=== PATIENT | male | born 1955 | race Caucasian/White ===

== ENCOUNTER → 2020-07-13 10:09 | Outpatient (BNVA) | payer MEDICAID, SELFPAY | PROVIDERS: PCP Internal Medicine; Referring Provider Internal Medicine; Visit Provider Internal Medicine Cardiovascular Disease | DX: I50.22 Chronic systolic (congestive) heart failure (principal); I42.9 Cardiomyopathy, unspecified; I48.20 Chronic atrial fibrillation, unspecified; R00.1 Bradycardia, unspecified; Z79.01 Long term (current) use of anticoagulants; Z79.899 Other long term (current) drug therapy | CPT/HCPCS: 93005; 99212 ==

== ENCOUNTER 2020-07-26 13:50 | Emergency (ER) | payer MEDICAID, SELFPAY ==
[2020-07-26 14:09] VITALS: BP 117/66; BP 130/90; PULSE 66; PULSE 80; RESP 18; TEMP 36.7; O2SAT 96; BMI 39.0
[2020-07-26 15:41] VITALS: BP 122/68; PULSE 66; RESP 18; TEMP 36.9; O2SAT 100
--- NOTE | 2020-07-26 17:04 | ED_ITS ---
HPI - General Adult General Chief complaint: General Medical Stated complaint: Epigastic/back pain Time Seen by Provider: 07/26/20 17:04 History of Present Illness HPI narrative: 65-year-old male who presents to the emergency department for evaluation of multiple complaints. The patient is complaining of left-sided pain. He states that the pain is located in his head and goes all the way down to his left foot. He also states the pain goes to his back. He states that the pain has been constant for 2 days. He states that the pain is moderate to severe in intensity. Venti states that he had a subjective fever at home, he felt short of breath and had wheezing. He is feeling lightheaded and dizzy. He states he has had occasional cough. The patient states that he has had some painful urination but no frequency. The patient did have a stroke with left side paralysis and he is unable to walk. 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 He did not take any medications for the pain. Related Data Home Medications Medication Instructions Recorded Confirmed citalopram 20 mg tablet 40 mg PO DAILY tab 07/13/20 07/13/20 dabigatran etexilate 150 mg capsule 150 mg PO BID 07/13/20 07/13/20 furosemide 20 mg tablet 20 mg PO DAILY 07/13/20 07/13/20 levetiracetam 1,000 mg tablet 1,000 mg PO Q12H 07/13/20 07/13/20 lisinopril 20 mg tablet 20 mg PO DAILY 07/13/20 07/13/20 oxcarbazepine 300 mg tablet 300 mg PO BID 07/13/20 07/13/20 pantoprazole 40 mg tablet,delayed 40 mg PO DAILY 07/13/20 07/13/20 release simvastatin 20 mg tablet 20 mg PO DAILY 07/13/20 07/13/20 Allergies Allergy/AdvReac Type Severity Reaction Status Date / Time No Known Allergies Allergy Verified 07/13/20 10:21 Review of Systems Review of Systems: Yes all other systems are reviewed and are negative Constitutional: Constitutional: Reports as per HPI Eyes: Eyes: Reports as per HPI ENT: Reports as per HPI Cardiovascular: Cardiovascular: Reports as per HPI Respiratory: Respiratory: Reports as per HPI Gastrointestinal: Gastrointestinal: Reports as per HPI Genitourinary: Genitourinary: Reports as per HPI Musculoskeletal: Musculoskeletal: Reports as per HPI Integumentary/Breasts: Skin/Breast: Reports as per HPI Neurologic: Reports as per HPI and Reports Abnormal speech present Psychiatric: Psychiatric: Reports as per HPI Allergic/Immunologic: Allergic/Immunologic: Reports as per HPI [facility] Past Medical History Medical History Bradycardia Cardiomyopathy Chronic atrial fibrillation Chronic HFrEF (heart failure with reduced ejection fraction) CVA (cerebral vascular accident) HTN (hypertension) Obesity Family History Family History Father Emphysema lung Mother Cardiovascular disease Social History Social History Alcohol intake: former Smoking Status: Former smoker Use of substances other than those prescribed or required for medical reasons: No Advance Directives: No Advance Directives Information Provided: No Physical Exam Vital Signs: Vital Signs: Last Vital Signs Temp 98.2 F 07/26/20 20:31 Pulse 64 07/26/20 20:31 Resp 20 07/26/20 20:31 BP 118/74 07/26/20 20:31 Pulse Ox 94 07/26/20 20:31 Body Mass Index 39.0 Const: General: cooperative, no acute distress, alert and awake Orientation/consciousness: oriented to person and oriented to place Limitations: no limitations HENMT: Head: Yes normal to inspection, Yes normocephalic and Yes atraumatic Ears: external ears normal General nose exam: Normal external nose present Face and sinus: Yes normal facial exam Mouth: Normal oral and palatal mucosa present Eyes: General: appearance normal, both eyes and all related structures Periorbital: periorbital findings normal Eyelids: Yes eyelids normal Conjunctivae: conjunctivae normal Sclerae: sclerae normal Corneas: corneas normal Pupils: Equal, round and reactive pupils present Direct Ophthalmoscopy: normal light reflex Neck: Neck: Yes normal visual inspection and Yes supple Lymphatic: no lymphadenopathy noted Chest: Chest palpation & inspection: normal inspection of the chest and other (Tenderness to palpation of the anterior chest) Resp: Effort & Inspection: normal respiratory effort, abnormal respiratory pattern, no audible wheezes and no respiratory distress Auscultation: clear to auscultation bilaterally, no crackles, no rales, no rhonchi and no wheezes Cardio: Rate: regular rate Rhythm: regular rhythm Heart sounds: S1 normal heart sound present, S2 normal heart sound present and Murmur heart sound present GI: Inspection: No distended Palpation (GI): Soft to palpation, nontender, no guarding and No hepatosplenomegaly present Auscultation: normal bowel sounds : General: Yes no CVA tenderness Back/Spine/Pelvis: Back: no CVA tenderness Skin: General skin exam: no rashes or lesions noted Lesions: no lesions Rashes: no rashes Wounds: no wounds Neuro: General: oriented to person and oriented to place Cranial nerves: Yes CN's II-XII intact bilaterally and Yes Equal, round and reactive pupils present Cognition (Neuro): normal cognition Speech: Abnormal speech present Motor exam (neuro): Other motor observations present (Left upper and lower extremity paralysis) Extrem: General: Yes no pedal edema, Yes no calf tenderness and Yes other (Contracture of the left upper extremity secondary to paralysis) Psych: Appearance: grossly normal Mental Status: mental status grossly normal Speech and movement: Clear speech present Affect: normal affect Thought process: Normal thought process present Course Course Course Narrative: 65-year-old male with a history of stroke with left-sided paralysis, CHF, cardiomegaly, atrial fibrillation who presents to emergency department for evaluation of left-sided pain, fever, shortness of breath, dizziness and cough. The patient's physical examination was consistent with his left-sided paralysis due to his old stroke and anterior chest tenderness otherwise was unremarkable. Given his symptoms, I did do a septic workup on the patient. Medical Decision Making Lab Data Result diagrams: 07/26/20 17:49 07/26/20 17:49 Labs: Lab Results 07/26/20 07/26/20 07/26/20 Range/Units 17:49 17:49 17:49 WBC 7.5 (4.8-10.8) X10*3/uL RBC 4.34 L (4.60-5.80) X10*6/uL Hgb 11.8 L (14.0-18.0) g/dl Hct 36.5 L (42-52) % MCV 84.1 (80-98) fL MCH 27.2 (27.0-33.0) pg MCHC 32.3 (31.0-36.0) g/dl RDW 16.7 H (11.0-16.0) % Plt Count 194 (160-400) X10*3/uL MPV 10.1 (9.4-12.4) fL Immature Gran % (Auto) 0.3 (0.0-0.4) % Neut % (Auto) 61.4 (45-73) % Lymph % (Auto) 25.1 (20-40) % Mcdonald % (Auto) 11.4 H (2-11) % Eos % (Auto) 1.3 (0-4) % Baso % (Auto) 0.5 (0-2) % Lymph # (Auto) 1.9 (1.2-4.9) X10*3/uL Mcdonald # (Auto) 0.9 (0.1-1.2) X10*3/uL Eos # (Auto) 0.1 (0.0-0.4) X10*3/uL Baso # (Auto) 0.0 (0.0-0.2) X10*3/uL Abs Immat Gran (auto) 0.02 (0.00-0.03) X10*3/uL Absolute Neuts (auto) 4.6 (2.0-8.3) X10*3/uL Absolute Nucleated RBC 0.000 (0.0-0.012) X10*3/uL Nucleated RBC % (auto) 0.0 (0.0-0.2) /100WBC PT 17.3 H (10.8-13.0) SEC INR 1.5 H (0.9-1.1) APTT 49.1 H (24.1-38.0) SEC Sodium 131 L (135-145) mmol/L Potassium 4.2 (3.3-5.1) mmol/l Chloride 91 L (96-108) mmol/L Carbon Dioxide 32 H (22-29) mmol/L Anion Gap 12 (12-20) BUN 11 (9-16) mg/dL Creatinine 0.91 (0.5-1.4) mg/dL Estim Creat Clear Calc 99.8 Estimated GFR > 60 Random Glucose 82 (60-115) mg/dL Lactic Acid (0.5-2.0) mmol/L Calcium 9.2 (8.4-10.2) mg/dL Total Bilirubin 0.5 (0.0-1.0) mg/dL Troponin I High Sens (<3.5-35.0) ng/L Coronavirus (PCR) (Negative) Influenza Type A (PCR) (Negative) Influenza Type B (PCR) (Negative) RSV RNA Qual (PCR) (Negative) 07/26/20 07/26/20 07/26/20 Range/Units 17:49 17:49 17:49 WBC (4.8-10.8) X10*3/uL RBC (4.60-5.80) X10*6/uL Hgb (14.0-18.0) g/dl Hct (42-52) % MCV (80-98) fL MCH (27.0-33.0) pg MCHC (31.0-36.0) g/dl RDW (11.0-16.0) % Plt Count (160-400) X10*3/uL MPV (9.4-12.4) fL Immature Gran % (Auto) (0.0-0.4) % Neut % (Auto) (45-73) % Lymph % (Auto) (20-40) % Mcdonald % (Auto) (2-11) % Eos % (Auto) (0-4) % Baso % (Auto) (0-2) % Lymph # (Auto) (1.2-4.9) X10*3/uL Mcdonald # (Auto) (0.1-1.2) X10*3/uL Eos # (Auto) (0.0-0.4) X10*3/uL Baso # (Auto) (0.0-0.2) X10*3/uL Abs Immat Gran (auto) (0.00-0.03) X10*3/uL Absolute Neuts (auto) (2.0-8.3) X10*3/uL Absolute Nucleated RBC (0.0-0.012) X10*3/uL Nucleated RBC % (auto) (0.0-0.2) /100WBC PT (10.8-13.0) SEC INR (0.9-1.1) APTT (24.1-38.0) SEC Sodium (135-145) mmol/L Potassium (3.3-5.1) mmol/l Chloride (96-108) mmol/L Carbon Dioxide (22-29) mmol/L Anion Gap (12-20) BUN (9-16) mg/dL Creatinine (0.5-1.4) mg/dL Estim Creat Clear Calc Estimated GFR Random Glucose (60-115) mg/dL Lactic Acid 1.0 (0.5-2.0) mmol/L Calcium (8.4-10.2) mg/dL Total Bilirubin (0.0-1.0) mg/dL Troponin I High Sens 12.3 (<3.5-35.0) ng/L Coronavirus (PCR) NEGATIVE (Negative) Influenza Type A (PCR) NEGATIVE (Negative) Influenza Type B (PCR) NEGATIVE (Negative) RSV RNA Qual (PCR) NEGATIVE (Negative) 07/26/20 Range/Units 21:27 WBC (4.8-10.8) X10*3/uL RBC (4.60-5.80) X10*6/uL Hgb (14.0-18.0) g/dl Hct (42-52) % MCV (80-98) fL MCH (27.0-33.0) pg MCHC (31.0-36.0) g/dl RDW (11.0-16.0) % Plt Count (160-400) X10*3/uL MPV (9.4-12.4) fL Immature Gran % (Auto) (0.0-0.4) % Neut % (Auto) (45-73) % Lymph % (Auto) (20-40) % Mcdonald % (Auto) (2-11) % Eos % (Auto) (0-4) % Baso % (Auto) (0-2) % Lymph # (Auto) (1.2-4.9) X10*3/uL Mcdonald # (Auto) (0.1-1.2) X10*3/uL Eos # (Auto) (0.0-0.4) X10*3/uL Baso # (Auto) (0.0-0.2) X10*3/uL Abs Immat Gran (auto) (0.00-0.03) X10*3/uL Absolute Neuts (auto) (2.0-8.3) X10*3/uL Absolute Nucleated RBC (0.0-0.012) X10*3/uL Nucleated RBC % (auto) (0.0-0.2) /100WBC PT (10.8-13.0) SEC INR (0.9-1.1) APTT (24.1-38.0) SEC Sodium (135-145) mmol/L Potassium (3.3-5.1) mmol/l Chloride (96-108) mmol/L Carbon Dioxide (22-29) mmol/L Anion Gap (12-20) BUN (9-16) mg/dL Creatinine (0.5-1.4) mg/dL Estim Creat Clear Calc Estimated GFR Random Glucose (60-115) mg/dL Lactic Acid (0.5-2.0) mmol/L Calcium (8.4-10.2) mg/dL Total Bilirubin (0.0-1.0) mg/dL Troponin I High Sens 15.7 (<3.5-35.0) ng/L Coronavirus (PCR) (Negative) Influenza Type A (PCR) (Negative) Influenza Type B (PCR) (Negative) RSV RNA Qual (PCR) (Negative) Discharge Plan Discharge Clinical Impression: Chest pain Patient Disposition: Home, Self-Care Instructions: Chest Pain (ED) Additional Instructions: Your blood work was normal which is reassuring. Continue taking medications as prescribed by your doctor. Follow-up with your doctor in 2 days for re-evaluation. Please return to the emergency department if your symptoms get worse or if you develop any new symptoms that are concerning to you. Prescriptions: No Action lisinopril 20 mg tablet 20 mg PO DAILY RF: 0 Pradaxa 150 mg capsule 150 mg PO BID RF: 0 furosemide 20 mg tablet 20 mg PO DAILY RF: 0 simvastatin 20 mg tablet 20 mg PO DAILY RF: 0 oxcarbazepine 300 mg tablet 300 mg PO BID RF: 0 levetiracetam 1,000 mg tablet 1,000 mg PO Q12H RF: 0 citalopram 20 mg tablet 40 mg PO DAILY RF: 0 pantoprazole 40 mg tablet,delayed release (DR/EC) 40 mg PO DAILY RF: 0
--- NOTE | 2020-07-26 17:37 | XR_ITS ---
EXAMINATION: XR CHEST CLINICAL INFORMATION: Chest pain fever COMPARISON: 09/23/2019 TECHNIQUE: Frontal view of the chest was obtained. FINDINGS: No acute process. Lung lilly are comparable to previous. No obvious failure or infiltrate. No effusion. XR/XR chest 1V IMPRESSION: No convincing evidence for an acute process.
--- NOTE | 2020-07-26 17:40 | ECG_ITS ---
Test Reason : SEPSIS Blood Pressure : / mmHG Vent. Rate : 070 BPM Atrial Rate : 375 BPM P-R Int : 000 ms QRS Dur : 084 ms QT Int : 414 ms P-R-T Axes : 000 026 070 degrees QTc Int : 447 ms Atrial fibrillation Low voltage QRS Cannot rule out Anteroseptal infarct , age undetermined Abnormal ECG When compared to the previous EKG of No significant changes seen Referred By: Alphonse Moffett Electronically Signed By:COLETTE BALL MD
[2020-07-26 18:02] VITALS: BP 121/67; PULSE 76; RESP 22; TEMP 36.9; O2SAT 100
[2020-07-26 18:03] LABS: MANUAL DIFF FLAG NO
[2020-07-26 18:07] LABS: Basophils Percent Auto 0.5 % (0-2); Eosinophils Absolute Auto 0.1 X10*3/uL (0.0-0.4); Eosinophils Percent Auto 1.3 % (0-4); Hematocrit 36.5 % (42-52); Hemoglobin 11.8 g/dl (14.0-18.0); Imm Gran Abs Auto 0.02 X10*3/uL (0.00-0.03); Imm Gran Pct Auto 0.3 % (0.0-0.4); Lymphocytes Absolute Auto 1.9 X10*3/uL (1.2-4.9); Lymphocytes Percent Auto 25.1 % (20-40); Mean Corpuscular HGB Conc 32.3 g/dl (31.0-36.0); Mean Corpuscular Hemoglobin 27.2 pg (27.0-33.0); Mean Corpuscular Volume 84.1 fL (80-98); Mean Platelet Volume 10.1 fL (9.4-12.4); Monocytes Absolute Auto 0.9 X10*3/uL (0.1-1.2); Monocytes Percent Auto 11.4 % (2-11); Neutrophils Absolute Auto 4.6 X10*3/uL (2.0-8.3); Neutrophils Percent Auto 61.4 % (45-73); Platelet Count 194 X10*3/uL (160-400); Red Blood Count 4.34 X10*6/uL (4.60-5.80); Red Cell Distribution Width 16.7 % (11.0-16.0); White Blood Count 7.5 X10*3/uL (4.8-10.8)
[2020-07-26 18:20] LABS: INTERNATIONAL NORM RATIO 1.5 (0.9-1.1); Prothrombin Time 17.3 SEC (10.8-13.0)
[2020-07-26 18:23] LABS: Partial Thromboplastin Time 49.1 SEC (24.1-38.0)
[2020-07-26] MEDS: ondansetron HCL 4 MG/2 ML VIAL IVPUSH (18:23)
[2020-07-26] MEDS: Morphine Sulfate 4 MG/ML CARTRIDGE IVPUSH (18:23)
[2020-07-26 18:26] LABS: Anion Gap 12 (12-20); Bilirubin Total 0.5 mg/dL (0.0-1.0); Blood Urea Nitrogen 11 mg/dL (9-16); Calcium 9.2 mg/dL (8.4-10.2); Carbon Dioxide 32 mmol/L (22-29); Chloride 91 mmol/L (96-108); Creatinine Clr Calc Pharmacy 99.8; Estimated Glomerular Filt Rate > 60; Glucose Random 82 mg/dL (60-115); Potassium 4.2 mmol/l (3.3-5.1); Sodium 131 mmol/L (135-145)
[2020-07-26 18:33] LABS: Troponin-I High Sensitivity 12.3 ng/L (<3.5-35.0)
[2020-07-26 18:47] LABS: Influenza A PCR NEGATIVE (Negative); Influenza B PCR NEGATIVE (Negative); Resp Syncy Virus RNA Qual PCR NEGATIVE (Negative); SARS COV2 PCR INHOUSE NEGATIVE (Negative)
[2020-07-26 20:31] VITALS: BP 118/74; PULSE 64; RESP 20; TEMP 36.8; O2SAT 94
[2020-07-26 22:04] LABS: Troponin-I High Sensitivity 15.7 ng/L (<3.5-35.0)
--- NOTE | 2020-07-26 22:09 | PC.NURSE ---
lew [facility]is number [id number]
== END 2020-07-27 01:44 | disposition home or self-care (01) ==
PROVIDERS: Emergency Provider Emergency Medicine Emergency Medical Services
DX: R07.9 Chest pain, unspecified (principal); Z20.828 Contact with and (suspected) exposure to other viral communicable diseases; I10 Essential (primary) hypertension; I48.20 Chronic atrial fibrillation, unspecified; Z86.73 Personal history of transient ischemic attack (TIA), and cerebral infarction without residual deficits
CPT/HCPCS: 0241U; 36415; 71045; 80048; 82247; 83605; 84484; 85025; 85610; 85730; 87040; 93005; 96374; 96375; 99284; J2270; J2405

== ENCOUNTER 2020-08-29 14:09 | Inpatient (IN) | payer MEDICAID, SELFPAY ==
[2020-08-29 14:28] VITALS: BP 128/71; PULSE 72; RESP 16; TEMP 37.6; O2SAT 99; BMI 39.9
--- NOTE | 2020-08-29 14:36 | ECG_ITS ---
Test Reason : ABDOMINAL PAIN Blood Pressure : / mmHG Vent. Rate : 077 BPM Atrial Rate : 312 BPM P-R Int : 000 ms QRS Dur : 096 ms QT Int : 382 ms P-R-T Axes : 000 017 060 degrees QTc Int : 432 ms Atrial fibrillation with premature ventricular or aberrantly conducted complexes Low voltage QRS Cannot rule out Inferior infarct , age undetermined Cannot rule out Anteroseptal infarct (cited on or before 11-JUN-2011) Abnormal ECG When compared with ECG of 26-JUL-2020 18:09, No significant changes seen Referred By: Deuce Marin Electronically Signed By:Presley Shell
--- NOTE | 2020-08-29 14:36 | ED_ITS ---
HPI - Abdominal Pain General Chief Complaint: Abdominal Pain Stated Complaint: abd pain/headache Time Seen by Provider: 08/29/20 14:35 Source: patient Mode of arrival: ambulatory Limitations: no limitations History of Present Illness HPI narrative: This is a 65-year-old male with past medical history is significant for atrial fibrillation on chronic anticoagulation with Pradaxa, cardiomyopathy, congestive heart failure with reduced ejection fraction, CVA with residual left-sided weakness, hypertension, obesity who presents ambulatory with complaint of right-sided/periumbilical pain going on since this morning. MD elicited complaint: abdominal pain Onset (ago): hour(s) Pain Consistency: constant Location: epigastric Severity: moderate Quality: stabbing and aching Migration to: periumbilical Exacerbating factors: nothing Associated symptoms: nausea Related Data Home Medications Medication Instructions Recorded Confirmed citalopram 20 mg tablet 40 mg PO DAILY tab 07/13/20 07/13/20 dabigatran etexilate 150 mg capsule 150 mg PO BID 07/13/20 07/13/20 furosemide 20 mg tablet 20 mg PO DAILY 07/13/20 07/13/20 levetiracetam 1,000 mg tablet 1,000 mg PO Q12H 07/13/20 07/13/20 lisinopril 20 mg tablet 20 mg PO DAILY 07/13/20 07/13/20 oxcarbazepine 300 mg tablet 300 mg PO BID 07/13/20 07/13/20 pantoprazole 40 mg tablet,delayed 40 mg PO DAILY 07/13/20 07/13/20 release simvastatin 20 mg tablet 20 mg PO DAILY 07/13/20 07/13/20 Allergies Allergy/AdvReac Type Severity Reaction Status Date / Time No Known Allergies Allergy Verified 07/13/20 10:21 Review of Systems Review of Systems Constitutional: No Weight loss, No Fever, No Chills, No Night Sweats, No Fatigue, No Malaise ENT/Mouth: No Hearing loss, No Ear Pain, No Nasal Congestion, No Sinus Pain, No Hoarseness, No sore throat, No Rhinorrhea, No Swallowing Difficulty Eyes: No Eye Pain, No Swelling, No Redness, No Foreign Body, No Discharge, No Vision Changes Cardiovascular: No Chest Pain, No SOB, No Dyspnea on Exertion, No Orthopnea, No Edema, No Palpitations Respiratory: No Cough, No Sputum, No Wheezing, No Smoke Exposure, No Dyspnea Gastrointestinal: + Nausea, No Vomiting, No Diarrhea, No Constipation, + abdominal Pain, No Hematochezia, No Melena Genitourinary: no irregular bleeding, No Dysuria, No Urinary Frequency, No Hematuria, No Urinary Incontinence, No Urgency, No Flank Pain Musculoskeletal: No joint pain, No Myalgias, No Joint Swelling Skin: No Skin Lesions, No rash Neuro: No Weakness, No Numbness, No Paresthesias, No Loss of Consciousness, No Dizziness, No Headache Psych: No Social Issues Heme/Lymph: No Bruising, No Bleeding,No Lymphadenopathy Endocrine: No Polyuria, No Polydipsia, No Temperature Intolerance Yes all other systems are reviewed and are negative Physical Exam Vital Signs: Vital Signs: Last Vital Signs Temp 98.6 F 08/29/20 15:28 Pulse 79 08/29/20 17:55 Resp 19 08/29/20 18:14 BP 158/95 H 08/29/20 17:55 Pulse Ox 98 08/29/20 17:55 Body Mass Index 39.9 Reviewed Const: Other: Appears slightly contracted on the left side which is chronic for him from cva General: No acute distress or intoxicated appearing Nutritional Appearance: average body habitus Orientation/consciousness: patient oriented x3 HENMT: Head: Yes normal to inspection Ears: hearing grossly normal bilaterally Eyes: General: appearance normal, both eyes and all related structures Visual Lopez: normal visual lopez by confrontation Neck: Neck: Yes normal visual inspection, No positive Brudzinski's sign, No positive Kernig's sign and No tender Thyroid: Thyroid normal Chest: Chest palpation & inspection: normal inspection of the chest Resp: Effort & Inspection: normal respiratory effort Cardio: Jugular venous distension: no JVD Rate: regular rate Rhythm: regular rhythm Heart sounds: S1 normal heart sound present and S2 normal heart sound present GI: Inspection: Yes normal to inspection Percussion: Yes normal to percussion Auscultation: normal bowel sounds : General: Yes no CVA tenderness Back/Spine/Pelvis: Back: no CVA tenderness Skin: General skin exam: no rashes or lesions noted Neuro: General: patient oriented x3 Extrem: General: Yes normal to inspection Course Course Course Narrative: 2009 CT of the abdomen pelvis shows there is subtle fat stranding adjacent to the head of the pancreas which could be reflective of early pancreatitis. Liver has nodular contour suggestive of cirrhosis. Large volume of stool present in the colon similar to prior study. He continues to have breakthrough pain after receiving couple rounds of pain medications his AST/ALT are within normal limits though his lipase is 850 with prior lipase from 09/16/2019 was 18. Triglyceride level added to labs. Case discussed with hospitalist request GB ultrasound rule out stone and will admit to service. Reevaluation(s) Reevaluation #1: Sign out to night team pending ultrasound results and t riglyceride level. UMAIR Patten our plan will follow-up with these results and hospitalist. Plan for admission. MDM - Abdominal Pain Differential Diagnosis Differential diagnosis: Likely abdominal pain, calculus of kidney, constipation, diverticulitis, gastroenteritis, gastritis, pancreatitis and small bowel obstruction; Unlikely aortic dissection, bowel perforation, endometriosis, mesenteric ischemia, peptic ulcer disease and renal colic Medical Records Attestation: I reviewed the patient's medical records. Lab Data Attestation: I reviewed the patient's lab results. Result diagrams: 08/29/20 15:53 08/29/20 15:53 Labs: Lab Results 08/29/20 08/29/20 08/29/20 Range/Units 15:52 15:53 15:53 WBC 11.6 H (4.8-10.8) X10*3/uL RBC 4.24 L (4.60-5.80) X10*6/uL Hgb 11.6 L (14.0-18.0) g/dl Hct 35.3 L (42-52) % MCV 83.3 (80-98) fL MCH 27.4 (27.0-33.0) pg MCHC 32.9 (31.0-36.0) g/dl RDW 16.4 H (11.0-16.0) % Plt Count 172 (160-400) X10*3/uL MPV 10.0 (9.4-12.4) fL Immature Gran % (Auto) 0.3 (0.0-0.4) % Neut % (Auto) 75.4 H (45-73) % Lymph % (Auto) 10.4 L (20-40) % [place] % (Auto) 13.3 H (2-11) % Eos % (Auto) 0.3 (0-4) % Baso % (Auto) 0.3 (0-2) % Lymph # (Auto) 1.2 (1.2-4.9) X10*3/uL [place] # (Auto) 1.6 H (0.1-1.2) X10*3/uL Eos # (Auto) 0.0 (0.0-0.4) X10*3/uL Baso # (Auto) 0.0 (0.0-0.2) X10*3/uL Abs Immat Gran (auto) 0.04 H (0.00-0.03) X10*3/uL Absolute Neuts (auto) 8.8 H (2.0-8.3) X10*3/uL Absolute Nucleated RBC 0.000 (0.0-0.012) X10*3/uL Nucleated RBC % (auto) 0.0 (0.0-0.2) /100WBC Smear Tech's Comments VERIFIED PT 18.2 H (10.8-13.0) SEC INR 1.5 H (0.9-1.1) APTT 45.4 H (24.1-38.0) SEC Sodium (135-145) mmol/L Potassium (3.3-5.1) mmol/l Chloride (96-108) mmol/L Carbon Dioxide (22-29) mmol/L Anion Gap (12-20) BUN (9-16) mg/dL Creatinine (0.5-1.4) mg/dL Estim Creat Clear Calc Estimated GFR Random Glucose (60-115) mg/dL Calcium (8.4-10.2) mg/dL Total Bilirubin (0.0-1.0) mg/dL AST (5-37) U/L ALT (0-40) U/L Alkaline Phosphatase (39-117) U/L Troponin I High Sens 13.2 (<3.5-35.0) ng/L Total Protein (6.5-8.0) g/dL Albumin (3.5-5.0) g/dL Triglycerides mg/dL Lipase (8-78) U/L Urine Color Urine Appearance Urine pH (5.0-8.0) Ur Specific [place] (1.005-1.025) Urine Protein (NEG-TRACE) MG/DL Urine Glucose (UA) (NEG) MG/DL Urine Ketones (NEG) MG/DL Urine Blood (NEG) Urine Nitrite (NEG) Ur Leukocyte Esterase (NEG) Urine RBC (0) /HPF Urine WBC (0-4) /HPF Ur Squamous Epith Cells /LPF Urine Bacteria /LPF 08/29/20 08/29/20 Range/Units 15:53 18:05 WBC (4.8-10.8) X10*3/uL RBC (4.60-5.80) X10*6/uL Hgb (14.0-18.0) g/dl Hct (42-52) % MCV (80-98) fL MCH (27.0-33.0) pg MCHC (31.0-36.0) g/dl RDW (11.0-16.0) % Plt Count (160-400) X10*3/uL MPV (9.4-12.4) fL Immature Gran % (Auto) (0.0-0.4) % Neut % (Auto) (45-73) % Lymph % (Auto) (20-40) % [place] % (Auto) (2-11) % Eos % (Auto) (0-4) % Baso % (Auto) (0-2) % Lymph # (Auto) (1.2-4.9) X10*3/uL [place] # (Auto) (0.1-1.2) X10*3/uL Eos # (Auto) (0.0-0.4) X10*3/uL Baso # (Auto) (0.0-0.2) X10*3/uL Abs Immat Gran (auto) (0.00-0.03) X10*3/uL Absolute Neuts (auto) (2.0-8.3) X10*3/uL Absolute Nucleated RBC (0.0-0.012) X10*3/uL Nucleated RBC % (auto) (0.0-0.2) /100WBC Smear Tech's Comments PT (10.8-13.0) SEC INR (0.9-1.1) APTT (24.1-38.0) SEC Sodium 130 L (135-145) mmol/L Potassium 4.1 (3.3-5.1) mmol/l Chloride 89 L (96-108) mmol/L Carbon Dioxide 33 H (22-29) mmol/L Anion Gap 12 (12-20) BUN 9 (9-16) mg/dL Creatinine 0.85 (0.5-1.4) mg/dL Estim Creat Clear Calc 108.1 Estimated GFR > 60 Random Glucose 96 (60-115) mg/dL Calcium 9.5 (8.4-10.2) mg/dL Total Bilirubin 0.3 (0.0-1.0) mg/dL AST 14 (5-37) U/L ALT 14 (0-40) U/L Alkaline Phosphatase 84 (39-117) U/L Troponin I High Sens (<3.5-35.0) ng/L Total Protein 7.4 (6.5-8.0) g/dL Albumin 4.5 (3.5-5.0) g/dL Triglycerides 37 mg/dL Lipase 850 H (8-78) U/L Urine Color YELLOW Urine Appearance CLEAR Urine pH 5.5 (5.0-8.0) Ur Specific [place] <= 1.005 (1.005-1.025) Urine Protein 1+ H (NEG-TRACE) MG/DL Urine Glucose (UA) NEG (NEG) MG/DL Urine Ketones NEG (NEG) MG/DL Urine Blood 2+ H (NEG) Urine Nitrite NEG (NEG) Ur Leukocyte Esterase NEG (NEG) Urine RBC 0-2 (0) /HPF Urine WBC 0 (0-4) /HPF Ur Squamous Epith Cells NONE /LPF Urine Bacteria TRACE /LPF Imaging Data Abdominal/pelvis CT with IV contrast: Radiologist's impression: [place] [id number] CT Scan Report Signed Patient: Noah RoseBijal#: [id number] : 1955cct:[id number] Age/Sex: 65 / MADM Date: 08/29/20 Loc: HO.ED Attending Dr: Ordering Physician: Deuce Marin SECOND SHIFT SUPERVISOR Date of Service: 08/29/20 Procedure(s): CT abdomen pelvis w con Accession Number(s): [id number] cc: Deuce Marin SECOND SHIFT SUPERVISOR~ EXAMINATION: CT ABDOMEN AND PELVIS WITH CONTRAST CLINICAL INFORMATION: Right-sided abdominal pain COMPARISON: 09/22/2019 TECHNIQUE: Multidetector volumetric images were obtained from the superior aspect of the liver through the pubic symphysis following administration 85 mL of Omnipaque 350 intravenous contrast. Sagittal and coronal reformatted images were obtained on the technologist's workstation. Oral contrast: No This CT examination was performed using dose optimization techniques as appropriate, variously including the following: *Automated exposure control *Adjustment of mA and/or kV according to patient size (this includes techniques or standardized protocols for targeted exams where dose is matched to indication/reason for exam; i.e. extremities or head) *Use of iterative reconstruction technique DLP: 1181 mGy-cm FINDINGS: LUNG BASES: Cardiomegaly. Atelectasis at the lung bases. LIVER, GALLBLADDER, AND BILIARY TREE: The liver has a nodular contour suggesting cirrhosis. No focal liver lesion seen however. Gallbladder collapsed. No biliary ductal dilatation. PANCREAS: There is subtle fat stranding adjacent the head of the pancreas which could reflect pancreatitis. No pancreatic mass. SPLEEN: Unremarkable. ADRENAL GLANDS: Unremarkable. KIDNEYS AND URETERS: The kidneys are normal in size, shape, and attenuation. No hydronephrosis, hydroureter, or calculi seen. No perinephric stranding. BLADDER: Unremarkable. GASTROINTESTINAL TRACT: Stomach and small bowel are nondilated. Normal appendix. No evidence of colitis or diverticulitis. Large volume of stool present in the rectum. No rectal wall thickening or perirectal inflammatory changes. ABDOMINAL WALL: Small fat-containing umbilical hernia. LYMPH NODES: No lymphadenopathy. VASCULAR: Normal caliber abdominal aorta. PELVIC VISCERA: The prostate and seminal vesicles are unremarkable. OSSEOUS STRUCTURES: Multilevel degenerative changes with vacuum disc phenomenon and severe degenerative disc disease at L5-S1. CT/CT abdomen pelvis w con IMPRESSION: There is subtle fat stranding adjacent the head of the pancreas which could reflect pancreatitis. The liver has a nodular contour suggesting cirrhosis. Large volume of stool present in the colon, similar to the prior study. Dictated By:TRISTEN TYSON MD Signed By:<Electronically signed by TRISTEN TYSON MD in OV>08/29/20 1735 DD/ 1437 TD/TT: Campus Recruiting Coordinator: CHIOMA Chest x-ray: Radiologist's impression: [address] [address] XRay Report Signed Patient: Hanane RoseR#: [id number] : 1955cct:[id number] Age/Sex: 65 / MADM Date: 07/26/20 Loc: HO.ED Attending Dr: Ordering Physician: Alphonse Moffett MD Date of Service: 07/26/20 Procedure(s): XR chest 1V Accession Number(s): [id number] cc: Alphonse Moffett MD~ EXAMINATION: XR CHEST CLINICAL INFORMATION: Chest pain fever COMPARISON: 09/23/2019 TECHNIQUE: Frontal view of the chest was obtained. FINDINGS: No acute process. Lung lopez are comparable to previous. No obvious failure or infiltrate. No effusion. XR/XR chest 1V IMPRESSION: No convincing evidence for an acute process. Dictated By:EMMETT RIDLEY MD Signed By:<Electronically signed by EMMETT RIDLEY MD in OV>07/26/20 1834 DD/ 1737 TD/TT: Campus Recruiting Coordinator: GT ECG Data Interpretation: Atrial fibrillation Rate 77 and control PVC No acute ST segment changes No significant change when compared to 07/26/2020. Discharge Plan Discharge Clinical Impression: Pancreatitis Patient Disposition: Admitted As Inpatient Prescriptions: No Action lisinopril 20 mg tablet 20 mg PO DAILY RF: 0 Pradaxa 150 mg capsule 150 mg PO BID RF: 0 furosemide 20 mg tablet 20 mg PO DAILY RF: 0 simvastatin 20 mg tablet 20 mg PO DAILY RF: 0 oxcarbazepine 300 mg tablet 300 mg PO BID RF: 0 levetiracetam 1,000 mg tablet 1,000 mg PO Q12H RF: 0 citalopram 20 mg tablet 40 mg PO DAILY RF: 0 pantoprazole 40 mg tablet,delayed release (DR/EC) 40 mg PO DAILY RF: 0 PMFSH Past Medical History Medical History Bradycardia Cardiomyopathy Chronic atrial fibrillation Chronic HFrEF (heart failure with reduced ejection fraction) CVA (cerebral vascular accident) HTN (hypertension) Obesity Family History Family History Father Emphysema lung Mother Cardiovascular disease Social History Social History Alcohol intake: unknown Smoking Status: Unknown if ever smoked Use of substances other than those prescribed or required for medical reasons: No Advance Directives: No Advance Directives Information Provided: No
[2020-08-29 15:28] VITALS: BP 133/64; PULSE 73; RESP 17; TEMP 37; O2SAT 99
--- NOTE | 2020-08-29 15:31 | ECG_ITS ---
Test Reason : ABDOMINAL PAIN Blood Pressure : / mmHG Vent. Rate : 089 BPM Atrial Rate : 416 BPM P-R Int : 000 ms QRS Dur : 094 ms QT Int : 368 ms P-R-T Axes : 000 014 053 degrees QTc Int : 447 ms Atrial fibrillation with premature ventricular or aberrantly conducted complexes Low voltage QRS Cannot rule out Inferior infarct (cited on or before 11-JUN-2011) Cannot rule out Anterior infarct (cited on or before 11-JUN-2011) Abnormal ECG When compared with ECG of 29-AUG-2020 15:23, No significant changes seen Referred By: Amira Enciso Electronically Signed By:Presley Shell
[2020-08-29 16:13] LABS: Basophils Percent Auto 0.3 % (0-2); Eosinophils Percent Auto 0.3 % (0-4); Hematocrit 35.3 % (42-52); Hemoglobin 11.6 g/dl (14.0-18.0); Imm Gran Abs Auto 0.04 X10*3/uL (0.00-0.03); Imm Gran Pct Auto 0.3 % (0.0-0.4); Lymphocytes Absolute Auto 1.2 X10*3/uL (1.2-4.9); Lymphocytes Percent Auto 10.4 % (20-40); MANUAL DIFF FLAG SCAN; Mean Corpuscular HGB Conc 32.9 g/dl (31.0-36.0); Mean Corpuscular Hemoglobin 27.4 pg (27.0-33.0); Mean Corpuscular Volume 83.3 fL (80-98); Monocytes Absolute Auto 1.6 X10*3/uL (0.1-1.2); Monocytes Percent Auto 13.3 % (2-11); Neutrophils Absolute Auto 8.8 X10*3/uL (2.0-8.3); Neutrophils Percent Auto 75.4 % (45-73); Platelet Count 172 X10*3/uL (160-400); Red Blood Count 4.24 X10*6/uL (4.60-5.80); Red Cell Distribution Width 16.4 % (11.0-16.0); SCAN SMEAR FLAG 1; White Blood Count 11.6 X10*3/uL (4.8-10.8)
[2020-08-29 16:22] LABS: INTERNATIONAL NORM RATIO 1.5 (0.9-1.1); Prothrombin Time 18.2 SEC (10.8-13.0)
[2020-08-29 16:25] LABS: Partial Thromboplastin Time 45.4 SEC (24.1-38.0)
[2020-08-29 16:31] LABS: SLIDE REVIEW VERIFIED
[2020-08-29 16:37] LABS: Alanine Aminotransferase 14 U/L (0-40); Albumin Level 4.5 g/dL (3.5-5.0); Alkaline Phosphatase 84 U/L (39-117); Anion Gap 12 (12-20); Aspartate Amino Transferase 14 U/L (5-37); Bilirubin Total 0.3 mg/dL (0.0-1.0); Blood Urea Nitrogen 9 mg/dL (9-16); Calcium 9.5 mg/dL (8.4-10.2); Carbon Dioxide 33 mmol/L (22-29); Chloride 89 mmol/L (96-108); Creatinine Clr Calc Pharmacy 108.1; Estimated Glomerular Filt Rate > 60; Glucose Random 96 mg/dL (60-115); Potassium 4.1 mmol/l (3.3-5.1); Sodium 130 mmol/L (135-145); Total Protein 7.4 g/dL (6.5-8.0)
[2020-08-29 16:38] LABS: Troponin-I High Sensitivity 13.2 ng/L (<3.5-35.0)
[2020-08-29 17:55] VITALS: BP 158/95; PULSE 79; RESP 18; O2SAT 98
[2020-08-29] MEDS: ondansetron HCL 4 MG/2 ML VIAL IVPUSH (18:13)
[2020-08-29 18:14] VITALS: RESP 19
[2020-08-29] MEDS: Morphine Sulfate 4 MG/ML CARTRIDGE IVPUSH ×2 (18:14→20:19)
[2020-08-29 18:17] LABS: Glucose Urine UA NEG (NEG); Leukocyte Esterase Urine NEG (NEG); Nitrite Urine NEG (NEG); PH 5.5 (5.0-8.0); Specific Gravity - Urine <= 1.005 (1.005-1.025); Urine Blood 2+ (NEG); Urine Ketones NEG (NEG); Urine Protein 1+ MG/DL (NEG-TRACE)
[2020-08-29 18:19] LABS: Appearance Urine CLEAR; Color Urine YELLOW
[2020-08-29 18:25] LABS: Bacteria Urine TRACE /LPF; RBC Urine 0-2 /HPF (0); WBC Urine 0 /HPF (0-4)
[2020-08-29 18:44] LABS: Lipase 850 U/L (8-78)
--- NOTE | 2020-08-29 18:45 | PM.IMHP ---
History of Present Illness Date of Service: 08/29/20 Chief Complaint: Abdominal pain This is a 65-year-old male Romansh-speaking only, with past medical history of heart failure, chronic AFib, hypertension, CVA with residual left hemiparesis,, seizure, who presents to the hospital with complaints of right upper quadrant abdominal pain for 3 days. Patient denies any history of alcohol use, and is usually bed-bound due to his history of stroke. Reports pain is constant, located epigastric to right upper quadrant, stabbing and aching, radiating to the back, has not been having any nausea or vomiting. He denies any chest pain, no shortness of breath, no cough, no urinary symptoms and no lower extremity edema. No diarrhea but has chronic constipation. On arrival To the ED hemodynamically stable with no significant abnormal vitals Labs are significant for WBC count of 11.6, hemoglobin of 11.6, PT of 18.2, INR 1.5, sodium of 130, BUN of 9, creatinine of 0.85, lipase 150, he UA negative, triglycerides normal Abdominal CT shows there is subtle fat stranding adjacent to the head of the pancreas which could be the pancreatitis, the liver has a nodular contour suggestive of cirrhosis. Large volume of stool present in the colon similar to prior study. Medical history: Heart failure, chronic AFib, hypertension, CVA with residual left hemiparesis, Past surgical history: Denies Family history: COPD, CAD Social history: Comes from home, lives with family, wheelchair-bound, denies any tobacco alcohol or illicit drugs Review of Systems Review of Systems: Yes all other systems are reviewed and are negative REPLACED BY [facility] Medical History Bradycardia Cardiomyopathy Chronic atrial fibrillation Chronic HFrEF (heart failure with reduced ejection fraction) CVA (cerebral vascular accident) HTN (hypertension) Obesity Family History Father Emphysema lung Mother Cardiovascular disease Social History Alcohol intake: unknown Smoking Status: Unknown if ever smoked Use of substances other than those prescribed or required for medical reasons: No Advance Directives: No Advance Directives Information Provided: No Meds Allergies Allergy/AdvReac Type Severity Reaction Status Date / Time No Known Allergies Allergy Verified 07/13/20 10:21 Home Medications Medication Instructions Recorded Confirmed Type citalopram 20 mg tablet 40 mg PO DAILY tab 07/13/20 08/29/20 History furosemide 20 mg tablet 20 mg PO DAILY 07/13/20 08/29/20 History levetiracetam 1,000 mg tablet 1,000 mg PO Q12H 07/13/20 08/29/20 History lisinopril 20 mg tablet 20 mg PO DAILY 07/13/20 08/29/20 History pantoprazole 40 mg tablet,delayed 40 mg PO DAILY 07/13/20 08/29/20 History release simvastatin 20 mg tablet 20 mg PO DAILY 07/13/20 08/29/20 History dabigatran etexilate [Pradaxa] 150 mg PO BID 08/29/20 08/29/20 History hydroxyzine HCl 10 mg PO BEDTIME 08/29/20 08/29/20 History metoprolol succinate 25 mg PO DAILY 08/29/20 08/29/20 History oxcarbazepine 300 mg PO BID 08/29/20 08/29/20 History Physical Exam Vital Signs and Narrative: Vital Signs: Last Vital Signs Temp 97.6 F 08/30/20 02:00 Pulse 71 08/30/20 02:00 Resp 16 08/30/20 02:00 BP 116/64 08/30/20 02:00 Pulse Ox 94 08/30/20 02:00 Body Mass Index 39.9 Const: General: cooperative and no acute distress Orientation/consciousness: patient oriented x3 Eyes: General: appearance normal, both eyes and all related structures Pupils: Equal, round and reactive pupils present Resp: Effort & Inspection: normal respiratory effort and able to speak in complete sentences Cardio: Rate: regular rate Rhythm: regular rhythm GI: Other: Epigastric and right upper quadrant abdominal pain, abdominal pain, no rebound, no guarding Auscultation: normal bowel sounds Skin: General skin exam: no rashes or lesions noted Neuro: General: patient oriented x3 Cranial nerves: Yes Equal, round and reactive pupils present Cognition (Neuro): normal cognition Extrem: General: Yes normal to inspection and Yes no pedal edema Results Labs CBC and Chem 7: 08/29/20 15:53 08/29/20 15:53 Labs: Laboratory Results - last 24 hr 08/29/20 08/29/20 08/29/20 15:52 15:53 15:53 MCV 83.3 MCH 27.4 MCHC 32.9 RDW 16.4 H Plt Count 172 MPV 10.0 Immature Gran % (Auto) 0.3 Neut % (Auto) 75.4 H Lymph % (Auto) 10.4 L [place] % (Auto) 13.3 H Eos % (Auto) 0.3 Baso % (Auto) 0.3 Lymph # (Auto) 1.2 [place] # (Auto) 1.6 H Eos # (Auto) 0.0 Baso # (Auto) 0.0 Abs Immat Gran (auto) 0.04 H Absolute Neuts (auto) 8.8 H Absolute Nucleated RBC 0.000 Nucleated RBC % (auto) 0.0 Smear Tech's Comments VERIFIED PT 18.2 H INR 1.5 H APTT 45.4 H Anion Gap Estim Creat Clear Calc Estimated GFR Random Glucose Calcium Total Bilirubin AST ALT Alkaline Phosphatase Troponin I High Sens 13.2 Total Protein Albumin Triglycerides Lipase Urine Color Urine Appearance Urine pH Ur Specific [place] Urine Protein Urine Glucose (UA) Urine Ketones Urine Blood Urine Nitrite Ur Leukocyte Esterase Urine RBC Urine WBC Ur Squamous Epith Cells Urine Bacteria 08/29/20 08/29/20 15:53 18:05 MCV MCH MCHC RDW Plt Count MPV Immature Gran % (Auto) Neut % (Auto) Lymph % (Auto) [place] % (Auto) Eos % (Auto) Baso % (Auto) Lymph # (Auto) [place] # (Auto) Eos # (Auto) Baso # (Auto) Abs Immat Gran (auto) Absolute Neuts (auto) Absolute Nucleated RBC Nucleated RBC % (auto) Smear Tech's Comments PT INR APTT Anion Gap 12 Estim Creat Clear Calc 108.1 Estimated GFR > 60 Random Glucose 96 Calcium 9.5 Total Bilirubin 0.3 AST 14 ALT 14 Alkaline Phosphatase 84 Troponin I High Sens Total Protein 7.4 Albumin 4.5 Triglycerides 37 Lipase 850 H Urine Color YELLOW Urine Appearance CLEAR Urine pH 5.5 Ur Specific [place] <= 1.005 Urine Protein 1+ H Urine Glucose (UA) NEG Urine Ketones NEG Urine Blood 2+ H Urine Nitrite NEG Ur Leukocyte Esterase NEG Urine RBC 0-2 Urine WBC 0 Ur Squamous Epith Cells NONE Urine Bacteria TRACE Imaging Radiologist's Impressions: Impressions Abdomen/Pelvis CT 08/29/20 14:37 IMPRESSION: There is subtle fat stranding adjacent the head of the pancreas which could reflect pancreatitis. The liver has a nodular contour suggesting cirrhosis. Large volume of stool present in the colon, similar to the prior study. Abdomen Ultrasound 08/29/20 20:06 IMPRESSION: No acute change of gallbladder. No gallstone or bile duct dilatation. The pancreas is obscured by bowel gas. Assessment and Plan (1) Pancreatitis: Qualifiers: Chronicity: acute Pancreatitis type: unspecified pancreatitis type Acute pancreatitis complication: unspecified Qualified Code(s): K85.90 - Acute pancreatitis without necrosis or infection, unspecified Status: Acute (2) Chronic HFrEF (heart failure with reduced ejection fraction): Status: Acute (3) Chronic atrial fibrillation: Status: Acute (4) HTN (hypertension): Qualifiers: Hypertension type: essential hypertension Qualified Code(s): I10 - Essential (primary) hypertension Status: Acute This is a 65-year-old male with past medical history as above who presents to the hospital with complaints of abdominal pain found to have acute pancreatitis # acute pancreatitis - denies alcohol use, abdominal ultrasound is negative for any acute change of the gallbladder. No gallstone or bile duct dilatation noted. - triglycerides within normal range - possibly secondary to medications Plan: - will start him on IV fluids although has history of congestive heart failure with reduced ejection fraction therefore we have to be cautious with the amount of fluids - NPO - furosemide has been found to cause pancreatitis and patient is on this medication for heart failure therefore may need to be adjusted prior to discharge - # congestive heart failure with reduced ejection fraction - no evidence of exacerbation at this time - continue Lasix for now which may be changed prior to discharge given patient's acute pancreatitis # AFib - continue dabigatran, metoprolol # hypertension - stable - continue lisinopril DVT prophylaxis: Dabigatran
--- NOTE | 2020-08-29 20:06 | US_ITS ---
EXAMINATION: US ABDOMEN LIMITED CLINICAL INFORMATION: Right upper quadrant pain. COMPARISON: CT scan abdomen pelvis August 29, 2020 TECHNIQUE: Real-time imaging of the right upper quadrant abdominal viscera. Color Doppler exam used. FINDINGS: Exam limited by bowel gas and body habitus. PANCREAS: Obscured by bowel gas LIVER: Limited visualization of the liver. No focal abnormality seen of the liver. There is mild diffuse increased echogenicity of the parenchyma of liver. GALLBLADDER: Normal. The gallbladder is physiologically distended without evidence of stones, sludge, polyps, wall thickening or pericholecystic fluid. COMMON BILE DUCT: Normal in caliber measuring 0.3 cm in diameter. RIGHT KIDNEY: Normal. No hydronephrosis. No renal calculi or focal parenchymal lesions. The kidney measures 8.9 cm in maximum dimension. FREE FLUID: None. US/US abdomen limited IMPRESSION: No acute change of gallbladder. No gallstone or bile duct dilatation. The pancreas is obscured by bowel gas.
[2020-08-29 20:54] LABS: Triglycerides 37 mg/dL
[2020-08-30] VITALS (8 sets, daily range): BP systolic 116–191; BP diastolic 64–93; PULSE 63–101; RESP 14–18; TEMP 36.1–37.2; O2SAT 92–980
--- NOTE | 2020-08-30 00:50 | PC.NURSE ---
PATIENT WAS CHANGE AND REPOSITION BY DEANGELO GARCIA AND MY SELF
[2020-08-30] MEDS: Morphine Sulfate 4 MG/ML CARTRIDGE IVPUSH (01:13)
[2020-08-30 08:13] LABS: COVID-19 Test Negative (Negative)
[2020-08-30] MEDS: polyethylene glycoL 3350 17 GM POWD.PACK PO (09:31)
[2020-08-30] MEDS: 0.9 % Sodium Chloride 1,000 ML 150 ML IVCONT ×3 (10:17→21:09)
[2020-08-30] MEDS: Escitalopram Oxalate 20 MG TABLET PO (10:18)
[2020-08-30] MEDS: lisinopriL 20 MG TABLET PO (10:18)
[2020-08-30] MEDS: levETIRAcetam 1,000 MG TABLET 1000 MG PO ×2 (10:18→20:52)
[2020-08-30] MEDS: Metoprolol Succinate ER 25 MG TAB.ER.24H PO (10:18)
[2020-08-30] MEDS: Omeprazole 20 MG CAPSULE.DR PO (10:18)
[2020-08-30] MEDS: Furosemide 20 MG TABLET PO (10:18)
[2020-08-30] MEDS: OXcarbazepine 300 MG TABLET PO ×2 (10:18→20:52)
[2020-08-30 10:41] LABS: Basophils Percent Auto 0.2 % (0-2); Eosinophils Percent Auto 0.1 % (0-4); Hematocrit 36.7 % (42-52); Imm Gran Abs Auto 0.05 X10*3/uL (0.00-0.03); Imm Gran Pct Auto 0.4 % (0.0-0.4); Lymphocytes Absolute Auto 1.6 X10*3/uL (1.2-4.9); Lymphocytes Percent Auto 12.4 % (20-40); MANUAL DIFF FLAG SCAN; Mean Corpuscular HGB Conc 32.7 g/dl (31.0-36.0); Mean Corpuscular Hemoglobin 27.1 pg (27.0-33.0); Mean Platelet Volume 10.4 fL (9.4-12.4); Monocytes Absolute Auto 1.7 X10*3/uL (0.1-1.2); Monocytes Percent Auto 13.6 % (2-11); Neutrophils Absolute Auto 9.4 X10*3/uL (2.0-8.3); Neutrophils Percent Auto 73.3 % (45-73); Platelet Count 201 X10*3/uL (160-400); Red Blood Count 4.42 X10*6/uL (4.60-5.80); Red Cell Distribution Width 16.5 % (11.0-16.0); SCAN SMEAR FLAG 1; White Blood Count 12.8 X10*3/uL (4.8-10.8)
[2020-08-30 11:04] LABS: Anion Gap 20 (12-20); Blood Urea Nitrogen 9 mg/dL (9-16); Calcium 9.1 mg/dL (8.4-10.2); Carbon Dioxide 23 mmol/L (22-29); Chloride 91 mmol/L (96-108); Creatinine Clr Calc Pharmacy 109.4; Estimated Glomerular Filt Rate > 60; Glucose Random 86 mg/dL (60-115); Potassium 4.9 mmol/l (3.3-5.1); Sodium 129 mmol/L (135-145)
[2020-08-30 11:14] LABS: SLIDE REVIEW VERIFIED
[2020-08-30] MEDS: Famotidine/PF 20 MG/2 ML VIAL IVPUSH ×2 (12:25→20:52)
[2020-08-30] MEDS: HYDROmorphone HCl 0.5 MG/0.5 ML SYRINGE IVPUSH ×2 (12:25→18:56)
[2020-08-30] MEDS: Lactulose 20 GM/30 ML SOLUTION PO (12:25)
[2020-08-30] MEDS: 0.9 % Sodium Chloride Flush 3 ML SYRINGE IVFLUSH (15:47)
[2020-08-30] MEDS: Acetaminophen 325 MG TABLET 650 MG PO (15:49)
--- NOTE | 2020-08-30 18:58 | P.CNGI_ITS ---
History of Present Illness Data of Consult Service Date: 08/30/20 Requesting physician: Yosef Padilla Primary Care Provider: Unknown Physician HPI Reason for consult: pancreatitis 65-year-old male with past medical history of heart failure, chronic AFib, hypertension, CVA with residual left hemiparesis, seizure, who I am asked to see for assessment for pancreatitis. He had sudden onset worsening stabbing and aching epigastric and ruq pain 10/10 in severity for 3 days associated with nausea and poor appetite Pain worse with food. He denies any chest pain, no shortness of breath, no co ugh, no urinary symptoms and no lower extremity edema. No diarrhea but has chronic constipation. No fever or chills, or jaundice. Prior to this attack he felt well and had no weight loss or other sx. No new medications. Denies alcohol, smoking or illicit drug use ED assessment with labs revealing elevated lipase, nml trig and imaging with possible liver cirrhosis (he denies knowledge of liver disease) ad stranding around head of pancreas. Imaging personally reviewed and pancreas edematous with stranding noted. Social history: Comes from home, lives with family, wheelchair-bound, denies a [place] tobacco alcohol or illicit drugs Review of Systems Review of Systems: Constitutional: No Weight loss, No Fever, No Chills, No Night Sweats, No Fatigue, No Malaise ENT/Mouth: No Hearing loss, No Ear Pain, No Nasal Congestion, No Sinus Pain, No Hoarseness, No sore throat, No Rhinorrhea, No Swallowing Difficulty Eyes: No Eye Pain, No Swelling, No Redness, No Foreign Body, No Discharge, No Vision Changes Cardiovascular: No Chest Pain, No SOB, No Dyspnea on Exertion, No Orthopnea, No Edema, No Palpitations Respiratory: No Cough, No Sputum, No Wheezing, No Smoke Exposure, No Dyspnea Gastrointestinal: + Nausea, No Vomiting, No Diarrhea, No Constipation, + abdominal Pain, No Hematochezia, No Melena Genitourinary: no irregular bleeding, No Dysuria, No Urinary Frequency, No Hematuria, No Urinary Incontinence, No Urgency, No Flank Pain Skin: No Skin Lesions, No rash Neuro: No Weakness, No Numbness, No Paresthesias, No Loss of Consciousness, No Dizziness, No Headache Psych: No Social Issues Heme/Lymph: No Bruising, No Bleeding,No Lymphadenopathy Endocrine: No Polyuria, No Polydipsia, No Temperature Intolerance Yes all other systems are reviewed and are negative Musculoskeletal: Musculoskeletal: Reports abnormal gait and Reports limited range of motion (left sided weakness due to stroke) Neurologic: Reports abnormal gait [facility] Past Medical History Medical History Bradycardia Cardiomyopathy Chronic atrial fibrillation Chronic HFrEF (heart failure with reduced ejection fraction) CVA (cerebral vascular accident) HTN (hypertension) Obesity Family History Family History Father Emphysema lung Mother Cardiovascular disease Social History Social History Household Members: None Housing: Apartment Do you presently have visiting nurse or other home services: Yes Alcohol intake: unknown Smoking Status: Never smoker Smoked in Last 30 Days: No Second Hand Smoke Exposure: No Use of substances other than those prescribed or required for medical reasons: No Have you been hit, kicked, punched, or otherwise hurt by someone within the past year? If so, by whom?: No Do you feel safe in your current relationship?: No Is there a partner from a previous relationship who is making you feel unsafe now?: No Are you made to feel afraid or neglected: No Advance Directives: No Advance Directives Information Provided: No Do you have thoughts of harming others: None Do you have a plan to hurt others: No Plan Recently lost weight without trying: No Meds Allergies Allergy/AdvReac Type Severity Reaction Status Date / Time No Known Allergies Allergy Verified 07/13/20 10:21 Home Medications Medication Instructions Recorded Confirmed Type citalopram 20 mg tablet 40 mg PO DAILY tab 07/13/20 08/29/20 History furosemide 20 mg tablet 20 mg PO DAILY 07/13/20 08/29/20 History levetiracetam 1,000 mg tablet 1,000 mg PO Q12H 07/13/20 08/29/20 History lisinopril 20 mg tablet 20 mg PO DAILY 07/13/20 08/29/20 History pantoprazole 40 mg tablet,delayed 40 mg PO DAILY 07/13/20 08/29/20 History release simvastatin 20 mg tablet 20 mg PO DAILY 07/13/20 08/29/20 History dabigatran etexilate [Pradaxa] 150 mg PO BID 08/29/20 08/29/20 History hydroxyzine HCl 10 mg PO BEDTIME 08/29/20 08/29/20 History metoprolol succinate 25 mg PO DAILY 08/29/20 08/29/20 History oxcarbazepine 300 mg PO BID 08/29/20 08/29/20 History Physical Exam Vital Signs: Vital Signs: Last Vital Signs Temp 98.8 F 08/30/20 15:35 Pulse 82 08/30/20 15:35 Resp 18 08/30/20 15:35 BP 153/80 H 08/30/20 15:35 Pulse Ox 92 08/30/20 15:35 Body Mass Index 39.9 Const: Other: stiff and contracted left arm General: cooperative and no acute distress; No acute distress or intoxicated appearing Nutritional Appearance: average body habitus Orientation/consciousness: patient oriented x3 HENMT: Head: Yes normal to inspection Ears: hearing grossly normal bilaterally Eyes: General: appearance normal, both eyes and all related structures Visual Lopez: normal visual lopez by confrontation Pupils: Equal, round and reactive pupils present Neck: Neck: Yes normal visual inspection, No positive Brudzinski's sign, No positive Kernig's sign and No tender Thyroid: Thyroid normal Chest: Chest palpation & inspection: normal inspection of the chest Resp: Effort & Inspection: normal respiratory effort and able to speak in complete sentences Cardio: Jugular venous distension: no JVD Rate: regular rate Rhythm: regular rhythm Heart sounds: S1 normal heart sound present and S2 normal heart sound present GI: Other: Epigastric and right upper quadrant abdominal pain, abdominal pain, no rebound, no guarding Inspection: Yes normal to inspection Percussion: Yes normal to percussion Auscultation: normal bowel sounds : General: Yes no CVA tenderness Back/Spine/Pelvis: Back: no CVA tenderness Skin: General skin exam: no rashes or lesions noted Neuro: General: patient oriented x3 Cranial nerves: Yes Equal, round and re active pupils present Cognition (Neuro): normal cognition Extrem: General: Yes normal to inspection and Yes no pedal edema Results Labs CBC & Chem 7: 08/30/20 10:14 08/30/20 10:14 Labs: Short CBC 08/30/20 Range/Units 10:14 WBC 12.8 H (4.8-10.8) X10*3/uL Hgb 12.0 L (14.0-18.0) g/dl Hct 36.7 L (42-52) % Plt Count 201 (160-400) X10*3/uL BMP 08/30/20 10:14 Sodium 129 L Potassium 4.9 Chloride 91 L Carbon Dioxide 23 BUN 9 Creatinine 0.84 Calcium 9.1 Assessment and Plan (1) Pancreatitis: Qualifiers: Acute pancreatitis complication: unspecified Chronicity: acute Pancreatitis type: unspecified pancreatitis type Qualified Code(s): K85.90 - Acute pancreatitis without necrosis or infection, unspecified Status: Acute 1/ Acute interstitial uncomplicated pancreatitis, uncertain etiology, no alcohol hx, trig nml, no evidence of gallstones, ddx; IPMN, pancreatic ca, SOD dysfunction, panc divisum< AIP, no new meds per his history PLAN: 1/ cont with analgesia, and LR fluids as doing, 2/ allow PO diet as tolerated, can allow clears 3/ MRI to r/o panc ca, IPMN etc 4/ check igg4, celiac panel, LEE ANN
[2020-08-30 19:06] LABS: Glucose, Whole Blood 88 mg/dL (60-115)
[2020-08-30] MEDS: Dabigatran Etexilate Mesylate 150 MG CAPSULE PO (20:52)
[2020-08-30] MEDS: Atorvastatin Calcium 10 MG TABLET PO (20:52)
[2020-08-30] MEDS: hydrOXYzine HCL 10 MG TABLET PO (20:52)
[2020-08-30] MEDS: Milk of Magnesia 30 ML ORAL.SUSP 15 ML PO (20:52)
[2020-08-30] MEDS: Magnesium Hydrox/Alum Hydrox 30 ML ORAL.SUSP 15 ML PO (23:09)
[2020-08-31] VITALS (7 sets, daily range): BP systolic 92–169; BP diastolic 56–92; PULSE 68–117; RESP 14–20; TEMP 36.2–37.2; O2SAT 91–98; BMI 39.9
--- NOTE | 2020-08-31 | CT_ITS ---
EXAMINATION: CT ABDOMEN AND PELVIS WITHOUT CONTRAST CLINICAL INFORMATION: Abdominal pain, concern for bowel obstruction. COMPARISON: CT abdomen and pelvis 08/29/2020. TECHNIQUE: Multidetector volumetric imaging was performed from the superior aspect of the liver through the pubic symphysis. Sagittal and coronal reformatted images were obtained on the technologist's workstation. This CT examination was performed using dose optimization techniques as appropriate, variously including the following: *Automated exposure control *Adjustment of mA and/or kV according to patient size (this includes techniques or standardized protocols for targeted exams where dose is matched to indication/reason for exam; i.e. extremities or head) *Use of iterative reconstruction technique DLP: 1112 mGy-cm FINDINGS: LUNG BASES: The heart is mildly enlarged. No effusions, infiltrates or lung masses are seen. LIVER, GALLBLADDER, AND BILIARY TREE: Again noted is a slightly nodular liver contour. No focal mass or bile duct dilatation is seen. The gallbladder is unremarkable with no evidence of radiopaque gallstones, gallbladder wall thickening, or obvious pericholecystic inflammatory changes. PANCREAS: Again seen is some soft tissues stranding around the head of the pancreas, not significantly changed compared with the study of 2 days ago. The pancreatic duct is not dilated. The pancreatic body and tail appear normal. SPLEEN: Unremarkable. ADRENAL GLANDS: Unremarkable. KIDNEYS AND URETERS: The kidneys are normal in size, shape, and attenuation. Some barely discernible punctate calcifications present in the kidneys. No hydronephrosis, hydroureter, or large calculi seen. No perinephric stranding. BLADDER: Unremarkable. GASTROINTESTINAL TRACT: Moderate stool again noted in the rectosigmoid. No evidence of bowel obstruction. The small and large bowel are unremarkable. ABDOMINAL WALL: No significant hernia is appreciated. A small periumbilical hernia is seen containing only fat. LYMPH NODES: Normal. VASCULAR: Unremarkable. PELVIC VISCERA: Prostate and seminal vesicles appear normal. OSSEOUS STRUCTURES: Unremarkable. CT/CT abdomen pelvis wo con IMPRESSION: 1. Persistent fat stranding in the head of the pancreas consistent with pancreatitis. Please correlate clinically and with blood chemistries. 2. Slightly nodular liver suggesting underlying cirrhosis. 3. Question of tiny punctate renal calculi. 4. No evidence of bowel obstruction.
[2020-08-31] MEDS: HYDROmorphone HCl 0.5 MG/0.5 ML SYRINGE IVPUSH (03:32)
[2020-08-31] MEDS: 0.9 % Sodium Chloride 1,000 ML 150 ML IVCONT ×3 (04:20→18:13)
[2020-08-31 04:24] LABS: HBS Num1 0.22 mIU/mL (0-7.99); HBc Num1 0.16 S/CO (0.00-0.79); Hepatitis B Core Antibody Nonreactive (Nonreactive); ~HepC Num1 0.08 S/CO (0.00-0.79); ~Hepatitis B Surface Antibody NONREACTIVE (Nonreactive); ~Hepatitis C Antibody Nonreactive (Nonreactive)
[2020-08-31 04:29] LABS: HBsAGNum1 0.25 S/CO (0.00-0.99); Hepatitis A Antibody IgM 0.27 Index (0-0.79); Hepatitis B Surface Antigen Negative (Negative); ~Hepatitis A Antibody IgM Nonreactive (Nonreactive)
[2020-08-31 06:21] LABS: MANUAL DIFF FLAG NO
[2020-08-31 06:49] LABS: Basophils Percent Auto 0.2 % (0-2); Eosinophils Percent Auto 0.1 % (0-4); Hematocrit 34.6 % (42-52); Hemoglobin 11.4 g/dl (14.0-18.0); Imm Gran Abs Auto 0.07 X10*3/uL (0.00-0.03); Imm Gran Pct Auto 0.5 % (0.0-0.4); Lymphocytes Absolute Auto 1.2 X10*3/uL (1.2-4.9); Lymphocytes Percent Auto 9.3 % (20-40); Mean Corpuscular HGB Conc 32.9 g/dl (31.0-36.0); Mean Corpuscular Hemoglobin 27.1 pg (27.0-33.0); Mean Corpuscular Volume 82.2 fL (80-98); Mean Platelet Volume 10.4 fL (9.4-12.4); Monocytes Absolute Auto 1.3 X10*3/uL (0.1-1.2); Monocytes Percent Auto 9.6 % (2-11); Neutrophils Absolute Auto 10.6 X10*3/uL (2.0-8.3); Neutrophils Percent Auto 80.3 % (45-73); Platelet Count 233 X10*3/uL (160-400); Red Blood Count 4.21 X10*6/uL (4.60-5.80); Red Cell Distribution Width 16.5 % (11.0-16.0); White Blood Count 13.2 X10*3/uL (4.8-10.8)
[2020-08-31 07:12] LABS: Anion Gap 20 (12-20); Blood Urea Nitrogen 11 mg/dL (9-16); Calcium 8.9 mg/dL (8.4-10.2); Carbon Dioxide 23 mmol/L (22-29); Chloride 91 mmol/L (96-108); Creatinine Clr Calc Pharmacy 116.3; Estimated Glomerular Filt Rate > 60; Glucose Random 82 mg/dL (60-115); Potassium 4.7 mmol/l (3.3-5.1); Sodium 129 mmol/L (135-145)
[2020-08-31 07:29] LABS: Lipase 100 U/L (8-78)
[2020-08-31] MEDS: Acetaminophen 325 MG TABLET 650 MG PO (08:19)
[2020-08-31] MEDS: polyethylene glycoL 3350 17 GM POWD.PACK PO (08:19)
[2020-08-31] MEDS: OXcarbazepine 300 MG TABLET PO ×2 (08:19→22:06)
[2020-08-31] MEDS: Metoprolol Succinate ER 25 MG TAB.ER.24H PO (08:19)
[2020-08-31] MEDS: 0.9 % Sodium Chloride Flush 3 ML SYRINGE IVFLUSH ×2 (08:20→22:06)
[2020-08-31] MEDS: lisinopriL 20 MG TABLET PO (08:20)
[2020-08-31] MEDS: Famotidine/PF 20 MG/2 ML VIAL IVPUSH ×2 (08:20→22:06)
[2020-08-31] MEDS: levETIRAcetam 1,000 MG TABLET 1000 MG PO ×2 (08:20→22:06)
[2020-08-31] MEDS: Dabigatran Etexilate Mesylate 150 MG CAPSULE PO ×2 (08:20→22:06)
[2020-08-31] MEDS: Escitalopram Oxalate 20 MG TABLET PO (08:20)
[2020-08-31] MEDS: ondansetron HCL 4 MG/2 ML VIAL IVPUSH (09:53)
--- NOTE | 2020-08-31 11:42 | P.CDIC_ITS ---
CDI Concurrent Query Service Date: 08/31/20 Documentation Clarification: Please clarify if you are treating a proba ble/suspected/likely or confirmed: LAB: Hyponatremia Please specify if known or other Provider Response: Other Other Diagnosis: Chronic hyponatremia PLEASE DO NOT DELETE/MODIFY EXISTING CONTENT Additional information is needed in order to code to the highest accuracy and appropriate Severity of Illness (SOI). Please clarify the information noted below in your progress notes and discharge summary. Risk Factors/Clinical Indicators/Treatments LAB: Sodium 129 H IV fluids CDS: Dayanna Soares CCS, CDIS Contact Number: [phone]. [phone] Please Review the information above and exercise your independent professional judgment in responding to the query. If you concur, pleas document in the PROGRESS NOTES and DISCHARGE SUMMARY. If you do not agree with the query, please document in the query above. THIS QUERY IS PART OF THE PERMANENT MEDICAL RECORD
--- NOTE | 2020-08-31 13:30 | MHC.CM.PN ---
Addendum entered by Paola Mistry 08/31/20 14:01: MESSAGE LEFT FOR [facility]PERINTENDENT INSTITUTION ASSISTANCE @ [phone] Original Note: PER HOSPITALIST ROUNDS, PLAN IS FOR PATIENT TO RETURN HOME TOMORROW (09/01/2020) CASE MANAGEMENT AVAILABLE FOR DISCHARGE NEEDS.
--- NOTE | 2020-08-31 13:37 | HO.PM.IMPN ---
Subjective Subjective Date of Service: 08/31/20 Interval History: Seen in follow-up for acute pancreatitis. Patient is reporting some increased improve abdominal pain and Klaudia suffered a nausea and vomiting this morning he has not yet on diet. His lipase level has significantly dropped from 800 to 100 Review of Systems No fever or chill. Abdominal pain, nausea and vomiting present. Physical Exam Vital Signs: Vital Signs: Last Vital Signs Temp 98.1 F 08/31/20 11:24 Pulse 112 H 08/31/20 11:24 Resp 18 08/31/20 11:24 BP 156/90 H 08/31/20 11:24 Pulse Ox 91 L 08/31/20 11:24 Body Mass Index 39.9 Const: General: cooperative and no acute distress Orientation/consciousness: patient oriented x3 Resp: Effort & Inspection: normal respiratory effort and able to speak in complete sentences Cardio: Rate: regular rate Rhythm: regular rhythm GI: Other: Epigastric and right upper quadrant abdominal pain, abdominal pain, no rebound, no guarding Auscultation: normal bowel sounds Skin: General skin exam: no rashes or lesions noted Neuro: General: patient oriented x3 Extrem: General: Yes normal to inspection and Yes no pedal edema Objective Data Current Medications Generic Name Dose Route Start Last Admin Trade Name Freq PRN Reason Stop Dose Admin Acetaminophen 650 mg 08/30/20 09:36 08/31/20 08:19 Acetaminophen 325 Mg Tablet PO 650 mg Q6H PRN Administration Pain, Mild (Pain Scale 1-3) Al Hydroxide/Mg Hydroxide 15 ml 08/30/20 22:35 08/30/20 23:09 Magnesium Hydrox/Alum Hydrox 30 Ml Oral.Susp PO 15 ml Q6H PRN Administration Heartburn Atorvastatin Calcium 10 mg 08/30/20 21:00 08/30/20 20:52 Atorvastatin Calcium 10 Mg Tablet PO 10 mg BEDTIME VENITA Administration Dabigatran 150 mg 08/30/20 09:36 08/31/20 08:20 Dabigatran Etexilate Mesylate 150 Mg Capsule PO 150 mg BID VENITA Administration Docusate Sodium 100 mg 08/30/20 09:36 Docusate Sodium 100 Mg Capsule PO DAILY PRN Constipation Escitalopram Oxalate 20 mg 08/30/20 09:55 08/31/20 08:20 Escitalopram Oxalate 20 Mg Tablet PO 20 mg DAILY VENITA Administration Famotidine 20 mg 08/30/20 11:45 08/31/20 08:20 Famotidine/Pf 20 Mg/2 Ml Vial IVPUSH 20 mg BID VENITA Administration Hydromorphone HCl 0.5 mg 08/30/20 11:41 08/31/20 03:32 Hydromorphone Hcl 0.5 Mg/0.5 Ml Syringe IVPUSH 0.5 mg Q4H PRN Administration Pain, Severe (Pain Scale 7-10) Hydroxyzine HCl 10 mg 08/30/20 09:36 08/30/20 20:52 Hydroxyzine Hcl 10 Mg Tablet PO 10 mg BEDTIME VENITA Administration Sodium Chloride 1,000 mls @ 150 mls/hr 08/30/20 09:36 08/31/20 10:39 Ns IVCONT 150 mls/hr .Q6H40M VENITA Administration Levetiracetam 1,000 mg 08/30/20 09:36 08/31/20 08:20 Levetiracetam 1,000 Mg Tablet PO 1,000 mg Q12H VENITA Administration Lisinopril 20 mg 08/30/20 09:36 08/31/20 08:20 Lisinopril 20 Mg Tablet PO 20 mg DAILY VENITA Administration Protocol Magnesium Hydroxide 15 ml 08/30/20 21:00 08/30/20 20:52 Milk Of Magnesia 30 Ml Oral.Susp PO 15 ml BEDTIME VENITA Administration Metoprolol Succinate 25 mg 08/30/20 09:36 08/31/20 08:19 Metoprolol Succinate Er 25 Mg Tab.Er.24h PO 25 mg DAILY VENITA Administration Protocol Ondansetron HCl 4 mg 08/30/20 00:27 08/31/20 09:53 Ondansetron Hcl 4 Mg/2 Ml Vial IVPUSH 4 mg Q8H PRN Administration Nausea and Vomiting Oxcarbazepine 300 mg 08/30/20 09:36 08/31/20 08:19 Oxcarbazepine 300 Mg Tablet PO 300 mg BID VENITA Administration Polyethylene Glycol 17 gm 08/30/20 09:00 08/31/20 08:19 Polyethylene Glycol 3350 17 Gm Powd.Pack PO 17 gm DAILY VENITA Administration Sodium Chloride 3 ml 08/30/20 09:36 08/31/20 08:20 0.9 % Sodium Chloride Flush 3 Ml Syringe IVFLUSH 3 ml QSHIFT VENITA Administration Labs CBC & Chem 7: 08/31/20 05:56 08/31/20 05:56 Assessment and Plan (1) Pancreatitis: Status: Acute Assessment and Plan: This is a 65-year-old male with past medical history as above who presents to the hospital with complaints of abdominal pain found to have acute pancreatitis # acute pancreatitis--etiology is unclear. It is possible he may have passed a stone given drastic drop in lipase level. - denies alcohol use, abdominal ultrasound is negative for any acute change of the gallbladder. No gallstone or bile duct dilatation noted. - triglycerides within normal range - possibly secondary to medications Plan: Advanced to full liquid diet. Ongoing workup by GI. Hold off MRI for now. # congestive heart failure with reduced ejection fraction - no evidence of exacerbation at this time - continue Lasix for now which may be changed prior to discharge given patient's acute pancreatitis # AFib - continue dabigatran, metoprolol # hypertension - stable - continue lisinopril DVT prophylaxis: Dabigatran Home probably later today if not tomorrow complicated by the fact that he is having vomiting now and has not yet eaten.
[2020-08-31 14:43] LABS: Immunoglobulin G Subclass 1 584 mg/dL (382-929); Immunoglobulin G Subclass 2 255 mg/dL (241-700); Immunoglobulin G Subclass 3 46 mg/dL (22-178); Immunoglobulin G Subclass 4 31.8 mg/dL (4-86); Immunoglobulin G Total 987 mg/dL (600-1540)
--- NOTE | 2020-08-31 14:55 | MHC.CM.PN ---
CASE MANAGEMENT MET WITH PATIENT WITH HELP OF APPLIED STATISTICIAN PATIENT LIVES ALONE. HE HAS [employer], 7 DAYS PER WEEK. HE ALSO HAS FAMILY THAT LIVES IN THE [place]ART[place] FAMILY PROVIDES ASSIST AND SUPPORT WELL. PATIENT MOBILIZES WITH A WHEEL CHAIR. HE SAYS THAT ONE OF THE WHEELS IS CURRENTLY BROKEN. PATIENT REPORTS THAT DR WEBB OF [facility]. UPDATE MADE IN [facility]. HCP ON FILE AND VERIFIED.(JOSE SAM [phone]). PATIENT REPORTS THAT HIS PCP OFFICE SENDS A NURSE Maria E CABALLERO TO CHECK ON HIM. HE IS UNCERTAIN HOW MANY DAYS PER WEEK. CASE MANAGEMENT FOLLOWING FOR ANY NEEDS.
[2020-08-31] MEDS: Milk of Magnesia 30 ML ORAL.SUSP 15 ML PO (22:05)
[2020-08-31] MEDS: Atorvastatin Calcium 10 MG TABLET PO (22:06)
[2020-08-31] MEDS: hydrOXYzine HCL 10 MG TABLET PO (22:06)
[2020-09-01] VITALS (8 sets, daily range): BP systolic 134–190; BP diastolic 74–87; PULSE 69–86; RESP 16–20; TEMP 36.4–37.7; O2SAT 96–99
[2020-09-01] MEDS: 0.9 % Sodium Chloride 1,000 ML 150 ML IVCONT ×3 (03:42→22:36)
[2020-09-01] MEDS: levETIRAcetam 1,000 MG TABLET 1000 MG PO ×2 (09:03→21:11)
[2020-09-01] MEDS: Escitalopram Oxalate 20 MG TABLET PO (09:03)
[2020-09-01] MEDS: Famotidine/PF 20 MG/2 ML VIAL IVPUSH ×2 (09:03→21:11)
[2020-09-01] MEDS: Metoprolol Succinate ER 25 MG TAB.ER.24H PO (09:03)
[2020-09-01] MEDS: polyethylene glycoL 3350 17 GM POWD.PACK PO (09:04)
[2020-09-01] MEDS: lisinopriL 20 MG TABLET PO (09:04)
[2020-09-01] MEDS: OXcarbazepine 300 MG TABLET PO ×2 (09:04→21:11)
[2020-09-01] MEDS: Dabigatran Etexilate Mesylate 150 MG CAPSULE PO ×2 (09:04→21:11)
--- NOTE | 2020-09-01 11:32 | HO.PM.IMPN ---
Subjective Subjective Date of Service: 09/01/20 Interval History: Seen in follow-up for acute pancreatitis. Nausea, vomtting is better. A repeat CT showed no obstruction. Review of Systems No fever or chill. Abdominal pain, nausea and vomiting present. Physical Exam Vital Signs: Vital Signs: Last Vital Signs Temp 97.6 F 09/01/20 07:40 Pulse 81 09/01/20 09:04 Resp 19 09/01/20 07:40 BP 156/86 H 09/01/20 09:04 Pulse Ox 97 09/01/20 07:40 Body Mass Index 39.9 Const: General: cooperative and no acute distress Orientation/consciousness: patient oriented x3 Resp: Effort & Inspection: normal respiratory effort and able to speak in complete sentences Cardio: Rate: regular rate Rhythm: regular rhythm GI: Other: Epigastric and right upper quadrant abdominal pain, abdominal pain, no rebound, no guarding Auscultation: normal bowel sounds Skin: General skin exam: no rashes or lesions noted Neuro: General: patient oriented x3 Extrem: General: Yes normal to inspection and Yes no pedal edema Objective Data Current Medications Generic Name Dose Route Start Last Admin Trade Name Freq PRN Reason Stop Dose Admin Acetaminophen 650 mg 08/30/20 09:36 08/31/20 08:19 Acetaminophen 325 Mg Tablet PO 650 mg Q6H PRN Administration Pain, Mild (Pain Scale 1-3) Al Hydroxide/Mg Hydroxide 15 ml 08/30/20 22:35 08/30/20 23:09 Magnesium Hydrox/Alum Hydrox 30 Ml Oral.Susp PO 15 ml Q6H PRN Administration Heartburn Atorvastatin Calcium 10 mg 08/30/20 21:00 08/31/20 22:06 Atorvastatin Calcium 10 Mg Tablet PO 10 mg BEDTIME VENITA Administration Dabigatran 150 mg 08/30/20 09:36 09/01/20 09:04 Dabigatran Etexilate Mesylate 150 Mg Capsule PO 150 mg BID VENITA Administration Docusate Sodium 100 mg 08/30/20 09:36 Docusate Sodium 100 Mg Capsule PO DAILY PRN Constipation Escitalopram Oxalate 20 mg 08/30/20 09:55 09/01/20 09:03 Escitalopram Oxalate 20 Mg Tablet PO 20 mg DAILY VENITA Administration Famotidine 20 mg 08/30/20 11:45 09/01/20 09:03 Famotidine/Pf 20 Mg/2 Ml Vial IVPUSH 20 mg BID VENITA Administration Hydromorphone HCl 0.5 mg 08/30/20 11:41 08/31/20 03:32 Hydromorphone Hcl 0.5 Mg/0.5 Ml Syringe IVPUSH 0.5 mg Q4H PRN Administration Pain, Severe (Pain Scale 7-10) Hydroxyzine HCl 10 mg 08/30/20 09:36 08/31/20 22:06 Hydroxyzine Hcl 10 Mg Tablet PO 10 mg BEDTIME VENITA Administration Sodium Chloride 1,000 mls @ 150 mls/hr 08/30/20 09:36 09/01/20 09:07 Ns IVCONT Not Given .Q6H40M VENITA Levetiracetam 1,000 mg 08/30/20 09:36 09/01/20 09:03 Levetiracetam 1,000 Mg Tablet PO 1,000 mg Q12H VENITA Administration Lisinopril 20 mg 08/30/20 09:36 09/01/20 09:04 Lisinopril 20 Mg Tablet PO 20 mg DAILY VENITA Administration Protocol Magnesium Hydroxide 15 ml 08/30/20 21:00 08/31/20 22:05 Milk Of Magnesia 30 Ml Oral.Susp PO 15 ml BEDTIME VENITA Administration Metoprolol Succinate 25 mg 08/30/20 09:36 09/01/20 09:03 Metoprolol Succinate Er 25 Mg Tab.Er.24h PO 25 mg DAILY VENITA Administration Protocol Ondansetron HCl 4 mg 08/30/20 00:27 08/31/20 09:53 Ondansetron Hcl 4 Mg/2 Ml Vial IVPUSH 4 mg Q8H PRN Administration Nausea and Vomiting Oxcarbazepine 300 mg 08/30/20 09:36 09/01/20 09:04 Oxcarbazepine 300 Mg Tablet PO 300 mg BID VENITA Administration Polyethylene Glycol 17 gm 08/30/20 09:00 09/01/20 09:04 Polyethylene Glycol 3350 17 Gm Powd.Pack PO 17 gm DAILY VENITA Administration Sodium Chloride 3 ml 08/30/20 09:36 09/01/20 09:03 0.9 % Sodium Chloride Flush 3 Ml Syringe IVFLUSH Not Given QSHIFT [facility] Labs CBC & Chem 7: 08/31/20 05:56 08/31/20 05:56 Assessment and Plan (1) Pancreatitis: Status: Acute Assessment and Plan: 65-year-old male with past medical history as above who presents to the hospital with complaints of abdominal pain found to have acute pancreatitis # acute pancreatitis--etiology is unclear. It is possible he may have passed a stone given drastic drop in lipase level. - denies alcohol use, abdominal ultrasound is negative for any acute change of the gallbladder. No gallstone or bile duct dilatation noted. - triglycerides within normal range - possibly secondary to medications. Repeat lipse today Plan: Advanced diet as lindsay Ongoing workup by GI. Might do MR if symptoms persists # congestive heart failure with reduced ejection fraction - no evidence of exacerbation at this time - continue Lasix for now which may be changed prior to discharge given patient's acute pancreatitis # AFib - continue dabigatran, metoprolol # hypertension - stable - continue lisinopril DVT prophylaxis: Dabigatran Home by tomorrow if getting better
[2020-09-01 12:14] LABS: Anion Gap 11 (12-20); Blood Urea Nitrogen 11 mg/dL (9-16); Carbon Dioxide 27 mmol/L (22-29); Chloride 97 mmol/L (96-108); Creatinine Clr Calc Pharmacy 125.9; Estimated Glomerular Filt Rate > 60; Glucose Random 98 mg/dL (60-115); Lipase 34 U/L (8-78); Potassium 4.3 mmol/l (3.3-5.1); Sodium 131 mmol/L (135-145)
[2020-09-01] MEDS: Magnesium Hydrox/Alum Hydrox 30 ML ORAL.SUSP 15 ML PO (12:15)
[2020-09-01 12:29] LABS: Calcium 8.4 mg/dL (8.4-10.2)
[2020-09-01] MEDS: hydrOXYzine HCL 10 MG TABLET PO (21:11)
[2020-09-02] VITALS (8 sets, daily range): BP systolic 146–172; BP diastolic 84–98; PULSE 58–86; RESP 16–19; TEMP 36.2–37.3; O2SAT 93–98
[2020-09-02] MEDS: 0.9 % Sodium Chloride 1,000 ML 150 ML IVCONT (04:56)
[2020-09-02] MEDS: Famotidine/PF 20 MG/2 ML VIAL IVPUSH ×2 (08:48→22:00)
[2020-09-02] MEDS: polyethylene glycoL 3350 17 GM POWD.PACK PO (08:48)
[2020-09-02] MEDS: lisinopriL 20 MG TABLET PO (08:49)
[2020-09-02] MEDS: levETIRAcetam 1,000 MG TABLET 1000 MG PO ×2 (08:49→21:59)
[2020-09-02] MEDS: Metoprolol Succinate ER 25 MG TAB.ER.24H PO (08:49)
[2020-09-02] MEDS: Dabigatran Etexilate Mesylate 150 MG CAPSULE PO ×2 (08:49→21:58)
[2020-09-02] MEDS: Escitalopram Oxalate 20 MG TABLET PO (08:49)
[2020-09-02] MEDS: OXcarbazepine 300 MG TABLET PO ×2 (08:49→21:59)
--- NOTE | 2020-09-02 12:51 | PM.CNGS ---
History of Present Illness Consult details Consult date: 09/02/20 <Mikaela White PA-C - Last Filed: 09/02/20 13:20> Reason for consult: abdominal pain <ROBIN Graff Last Filed: 09/02/20 13:20> Requesting physician: Petar Agrawal <Mikaela White PA-C - Last Filed: 09/02/20 13:20> Narrative: The patient was seen with an japanese interpreter. History obtained from patient and EMR as he appears to be a poor historian. Mr. Jamar Tang is a 65 year old male with PMH significant for heart failure, AFib, hypertension, CVA with residual left hemiparesis, seizures, who presented to ED with complaints of abdominal pain for 3 days. The pain was described as a stabbing and located to the epigastric/RUQ region and radiating to the back. He denied nausea, vomiting, fever, recent weight loss, change in bowel habits, change in skin or urine/stool color upon presentation. He denies previous episodes of similar pain. He denies ETOH use. Initial labs were significant for WBC count of 11.6 and lipase 850. Triglycerides normal. Work up also included a CT scan abd/pelvis and ABD US which showed no gallstones, evidence of cholecystitis or biliary ductal dilatation but did show subtle fat stranding adjacent to the head of the pancreas and a nodular contour of the liver of cirrhosis. His colon was also FOS. He was admitted to the medical service and treated for pancreatitis, etiology unclear. He has been seen by GI and workup remains pending. Repeat CT scan showed persistent fat stranding in the head of the pancreas without other pathology. The patient reports resolution of his abdominal pain. He did develop nausea and vomiting during the stay but this has since resolved and he is tolerating a full liquid diet. He is unsure of when his last BM was. He feels like he is back to baseline and wants to go home. <ROBIN Graff Last Filed: 09/02/20 13:20> Review of Systems Constitutional: Constitutional: Denies fever(s) and Denies weight loss <ROBIN Graff Last Filed: 09/02/20 13:20> ENT: Denies dizziness <Mikaela White PA-C Last Filed: 09/02/20 13:20> Cardiovascular: Cardiovascular: Denies chest pain and Denies dyspnea <Mikaela White PA-C Last Filed: 09/02/20 13:20> Respiratory: Respiratory: Denies dyspnea <Mikaela White PA-C Last Filed: 09/02/20 13:20> Gastrointestinal: Gastrointestinal: Reports as per HPI <Mikaela White PA-C Last Filed: 09/02/20 13:20> Genitourinary: Genitourinary: Denies hematuria and Denies urinary frequency <Mikaela White PA-C Last Filed: 09/02/20 13:20> Integumentary/Breasts: Skin/Breast: Denies jaundice <Mikaela White PA-C Last Filed: 09/02/20 13:20> Neurologic: Denies dizziness <Mikaela White PA-C Last Filed: 09/02/20 13:20> [facility] Past Medical History Medical History: Medical History Bradycardia Cardiomyopathy Chronic atrial fibrillation Chronic HFrEF (heart failure with reduced ejection fraction) CVA (cerebral vascular accident) HTN (hypertension) Obesity <Mikaela White PA-C Last Filed: 09/02/20 13:20> Family History Family History: Family History Father Emphysema lung Mother Cardiovascular disease <Mikaela White PA-C Last Filed: 09/02/20 13:20> Social History Social History: Social History Household Members: None Housing: Apartment Do you presently have visiting nurse or other home services: Yes Alcohol intake: unknown Smoking Status: Never smoker Smoked in Last 30 Days: No Second Hand Smoke Exposure: No Use of substances other than those prescribed or required for medical reasons: No Currently Displaying Signs/Symptoms of Drug Intoxication Withdrawal: No Have you been hit, kicked, punched, or otherwise hurt by someone within the past year? If so, by whom?: No Do you feel safe in your current relationship?: No Is there a partner from a previous relationship who is making you feel unsafe now?: No Are you made to feel afraid or neglected: No Advance Directives: No Advance Directives Information Provided: No Do you have thoughts of harming others: None Do you have a plan to hurt others: No Plan Recently lost weight without trying: No service: No Current occupational status: disabled <Mikaela White PA-C - Last Filed: 09/02/20 13:20> Meds Allergies/Adverse reactions: Allergies Allergy/AdvReac Type Severity Reaction Status Date / Time No Known Allergies Allergy Verified 07/13/20 10:21 <Mikaela White PA-C - Last Filed: 09/02/20 13:20> Home medications: Home Medications Medication Instructions Recorded Confirmed Type citalopram 20 mg tablet 40 mg PO DAILY tab 07/13/20 08/29/20 History furosemide 20 mg tablet 20 mg PO DAILY 07/13/20 08/29/20 History levetiracetam 1,000 mg tablet 1,000 mg PO Q12H 07/13/20 08/29/20 History lisinopril 20 mg tablet 20 mg PO DAILY 07/13/20 08/29/20 History pantoprazole 40 mg tablet,delayed 40 mg PO DAILY 07/13/20 08/29/20 History release simvastatin 20 mg tablet 20 mg PO DAILY 07/13/20 08/29/20 History dabigatran etexilate [Pradaxa] 150 mg PO BID 08/29/20 08/29/20 History hydroxyzine HCl 10 mg PO BEDTIME 08/29/20 08/29/20 History metoprolol succinate 25 mg PO DAILY 08/29/20 08/29/20 History oxcarbazepine 300 mg PO BID 08/29/20 08/29/20 History <Mikaela White PA-C - Last Filed: 09/02/20 13:20> Physical Exam Vital Signs: Vital Signs: Last Vital Signs Temp 97.9 F 09/02/20 10:56 Pulse 86 09/02/20 10:56 Resp 18 09/02/20 10:56 BP 149/87 H 09/02/20 10:56 Pulse Ox 96 09/02/20 10:56 Body Mass Index 39.9 <Mikaela KARL White Sendy Last Filed: 09/02/20 13:20> Const: General: comfortable, no acute distress and alert <KARL Graff Sendy Last Filed: 09/02/20 13:20> Orientation/consciousness: patient oriented x3 <ISAAC GraffSendy Sendy Last Filed: 09/02/20 13:20> Eyes: Sclerae: sclerae normal <Mikaela ISAAC WhiteSendy Mailbox Last Filed: 09/02/20 13:20> Resp: Effort & Inspection: normal respiratory effort <ISAAC GraffSendy Sendy Filed: 09/02/20 13:20> Auscultation: clear to auscultation bilaterally <ISAAC GraffSendy Sendy Last Filed: 09/02/20 13:20> Cardio: Rate: regular rate <ISAAC GraffSendy Sendy Last Filed: 09/02/20 13:20> Rhythm: abnormal rhythm <ISAAC Graff Mailbox Last Filed: 09/02/20 13:20> GI: Inspection: Yes distended (tympanitic) <KARL Graff Sendy Last Filed: 09/02/20 13:20> Palpation (GI): Soft to palpation, nontender, no guarding, not rigid and No Rebound tenderness present <KARL Graff Sendy Last Filed: 09/02/20 13:20> Percussion: Yes tympanic to percussion <KARL Graff Mailbox Last Filed: 09/02/20 13:20> Auscultation: normal bowel sounds <KARL Graff Mailbox Last Filed: 09/02/20 13:20> Skin: General skin exam: no rashes or lesions noted <KARL Graff Sendy Last Filed: 09/02/20 13:20> Neuro: General: patient oriented x3 <ISAAC GraffSendy Mailbox Last Filed: 09/02/20 13:20> Extrem: General: Yes no clubbing, cyanosis or edema <Mikaela White PA-C - Last Filed: 09/02/20 13:20> Results Labs Result diagrams: : 08/31/20 05:56 09/01/20 11:36 <Mikaela White PA-C - Last Filed: 09/02/20 13:20> Labs: Urine 08/29/20 Range/Units 18:05 Urine Color YELLOW Urine Appearance CLEAR Urine pH 5.5 (5.0-8.0) Ur Specific [place] <= 1.005 (1.005-1.025) Urine Protein 1+ H (NEG-TRACE) MG/DL Urine Glucose (UA) NEG (NEG) MG/DL All other labs normal. <Mikaela White PA-C - Last Filed: 09/02/20 13:20> Assessment and Plan (1) Pancreatitis: Qualifiers: Acute pancreatitis complication: unspecified Chronicity: acute Pancreatitis type: unspecified pancreatitis type Qualified Code(s): K85.90 - Acute pancreatitis without necrosis or infection, unspecified <Mikaela White PA-C - Last Filed: 09/02/20 13:20> Status: Acute <Mikaela White PA-C - Last Filed: 09/02/20 13:20> Etiology remains unclear, undergoing work up by GI. Unlikely due to gallstones as none on imaging and LFTs normal upon presentation, despite the quick decrease of lipase. He has improved symptomatically and his abdomen is relatively benign. Advance diet as tolerated. His colon is FOS and he does report a history of constipation. On miralax, MOM for bowel regimen. Will change colace to BID. F/u with GI as needed. <Mikaela White PA-C - Last Filed: 09/02/20 13:20> pt admitted for elevated lipase at 850; imaging showing mild inflammatory changes around pancreas lipase has normalized bili, AST, ALT within normal uncertain as to etiology of pancreatitis abd soft, protruberant no gallstones seen on imaging - may have passed? no surgical intervention at this time pt seen and examined independently <Jordan Roldan MD - Last Filed: 09/02/20 14:12>
[2020-09-02 13:18] LABS: Anti Nuclear Antibody Screen NEGATIVE (NEGATIVE)
[2020-09-02] MEDS: 0.9 % Sodium Chloride Flush 3 ML SYRINGE IVFLUSH ×2 (15:25→22:26)
[2020-09-02] MEDS: Docusate Sodium 100 MG CAPSULE PO (21:59)
[2020-09-02] MEDS: Milk of Magnesia 30 ML ORAL.SUSP 15 ML PO (21:59)
[2020-09-02] MEDS: hydrOXYzine HCL 10 MG TABLET PO (21:59)
[2020-09-02] MEDS: Atorvastatin Calcium 10 MG TABLET PO (22:25)
[2020-09-03] VITALS (7 sets, daily range): BP systolic 114–177; BP diastolic 46–98; PULSE 60–115; RESP 18–20; TEMP 36.3–37.2; O2SAT 94–96
[2020-09-03] MEDS: 0.9 % Sodium Chloride Flush 3 ML SYRINGE IVFLUSH ×2 (10:02→15:02)
[2020-09-03] MEDS: polyethylene glycoL 3350 17 GM POWD.PACK PO (10:02)
[2020-09-03] MEDS: Famotidine/PF 20 MG/2 ML VIAL IVPUSH ×2 (10:02→22:22)
--- NOTE | 2020-09-03 10:40 | P.PNGS_ITS ---
Subjective Subjective Date of Service: 09/03/20 <ISAAC Sevilla - Last Filed: 09/03/20 10:48> 09/03/20 <Ronald Lino MD - Last Filed: 09/03/20 14:08> Patient reports: no new complaints, feels better and tolerating liquids well <ISAAC Sevilla - Last Filed: 09/03/20 10:48> Physical Exam Vital Signs: Vital Signs: Last Vital Signs Temp 98.1 F 09/03/20 08:00 Pulse 60 09/03/20 08:00 Resp 18 09/03/20 08:00 BP 157/95 H 09/03/20 08:00 Pulse Ox 94 09/03/20 08:00 Body Mass Index 39.9 <ISAAC Sevilla - Last Filed: 09/03/20 10:48> Const: General: no acute distress <ISAAC Sevilla - Last Filed: 09/03/20 10:48> Nutritional Appearance: obese <ISAAC Sevilla - Last Filed: 09/03/20 10:48> Limitations: language barrier <ISAAC Sevilla - Last Filed: 09/03/20 10:48> Chest: Chest palpation & inspection: normal inspection of the chest <ISAAC Sevilla - Last Filed: 09/03/20 10:48> Resp: Effort & Inspection: normal respiratory effort <ISAAC Sevilla - Last Filed: 09/03/20 10:48> Cardio: Jugular venous distension: no JVD <ISAAC Sevilla - Last Filed: 09/03/20 10:48> Rate: regular rate <ISAAC Sevilla - Last Filed: 09/03/20 10:48> GI: Inspection: Yes normal to inspection <ISAAC Sevilla Last Filed: 09/03/20 10:48> Palpation (GI): Soft to palpation and Other GI palpation findings present (protuberant ABD) <ISAAC Sevilla Last Filed: 09/03/20 10:48> Auscultation: normal bowel sounds <ISAAC Sevilla - Last Filed: 09/03/20 10:48> Skin: General skin exam: no rashes or lesions noted <ISAAC Sevilla - Last Filed: 09/03/20 10:48> Progress Note: A&P Assessment and plan (1) Pancreatitis: Problem details: ABD soft, protuberant. No pain with palpation. He is feeling better. Tolerating a full liquid diet. No N/V. <ISAAC Sevilla - Last Filed: 09/03/20 10:48> Status: Acute <ISAAC Sevilla - Last Filed: 09/03/20 10:48> Assessment and Plan: 65 yo male admitted last night for ? pancreatitis. Etiology at this time is unknown but may have been due to a passing stone. Imaging showed no acute pathology. Prior discomfort may also be due to large stool burden. Continue current care. Pain mgmt Stool softner Will advance diet as tolerated. <ISAAC Sevilla - Last Filed: 09/03/20 10:48> . General Surgery Attending - Beckie Lino M.D. Patient was evaluated and examined at the bedside with Mr. Matt Solorio PA-C. I confirm above findings and plan as documented. Patient seems to be without any abdominal discomfort. Awaiting lab results drawn from today. WBC today is 9.7K, but LFT's and chemistry still pending. Nonsurgical currently. <Ronald Lino MD - Last Filed: 09/03/20 14:08> Fall Risk Details Current Medications: Current Medications Generic Name Dose Route Start Last Admin Trade Name Freq PRN Reason Stop Dose Admin Acetaminophen 650 mg 08/30/20 09:36 08/31/20 08:19 Acetaminophen 325 Mg Tablet PO 650 mg Q6H PRN Administration Pain, Mild (Pain Scale 1-3) Al Hydroxide/Mg Hydroxide 15 ml 08/30/20 22:35 09/01/20 12:15 Magnesium Hydrox/Alum Hydrox 30 Ml Oral.Susp PO 15 ml Q6H PRN Administration Heartburn Atorvastatin Calcium 10 mg 08/30/20 21:00 09/02/20 22:25 Atorvastatin Calcium 10 Mg Tablet PO 10 mg BEDTIME VENITA Administration Dabigatran 150 mg 08/30/20 09:36 09/03/20 10:22 Dabigatran Etexilate Mesylate 150 Mg Capsule PO Not Given BID VENITA Docusate Sodium 100 mg 09/02/20 21:00 09/03/20 10:22 Docusate Sodium 100 Mg Capsule PO Not Given BID [facility] Escitalopram Oxalate 20 mg 08/30/20 09:55 09/03/20 10:22 Escitalopram Oxalate 20 Mg Tablet PO Not Given DAILY VENITA Famotidine 20 mg 08/30/20 11:45 09/03/20 10:02 Famotidine/Pf 20 Mg/2 Ml Vial IVPUSH 20 mg BID VENITA Administration Hydromorphone HCl 0.5 mg 08/30/20 11:41 08/31/20 03:32 Hydromorphone Hcl 0.5 Mg/0.5 Ml Syringe IVPUSH 0.5 mg Q4H PRN Administration Pain, Severe (Pain Scale 7-10) Hydroxyzine HCl 10 mg 08/30/20 09:36 09/02/20 21:59 Hydroxyzine Hcl 10 Mg Tablet PO 10 mg BEDTIME VENITA Administration Levetiracetam 1,000 mg 08/30/20 09:36 09/03/20 10:24 Levetiracetam 1,000 Mg Tablet PO Not Given Q12H VENITA Lisinopril 20 mg 08/30/20 09:36 09/03/20 10:22 Lisinopril 20 Mg Tablet PO Not Given DAILY [facility] Protocol Magnesium Hydroxide 15 ml 08/30/20 21:00 09/02/20 21:59 Milk Of Magnesia 30 Ml Oral.Susp PO 15 ml BEDTIME VENITA Administration Metoprolol Succinate 25 mg 08/30/20 09:36 09/03/20 10:23 Metoprolol Succinate Er 25 Mg Tab.Er.24h PO Not Given DAILY [facility] Protocol Ondansetron HCl 4 mg 08/30/20 00:27 08/31/20 09:53 Ondansetron Hcl 4 Mg/2 Ml Vial IVPUSH 4 mg Q8H PRN Administration Nausea and Vomiting Oxcarbazepine 300 mg 08/30/20 09:36 09/03/20 10:24 Oxcarbazepine 300 Mg Tablet PO Not Given BID VENITA Polyethylene Glycol 17 gm 08/30/20 09:00 09/03/20 10:02 Polyethylene Glycol 3350 17 Gm Powd.Pack PO 17 gm DAILY VENITA Administration Sodium Chloride 3 ml 08/30/20 09:36 09/03/20 10:02 0.9 % Sodium Chloride Flush 3 Ml Syringe IVFLUSH 3 ml QSHIFT VENITA Administration <ISAAC Sevilla - Last Filed: 09/03/20 10:48> Time Spent With Patient Time: Total time spent is greater than 50% in coordination of care (as documented) at patient's floor/unit and/or counseling patient: <ISAAC Sevilla - Last Filed: 09/03/20 10:48> Time with patient: 15 - 24 minutes <Ronald Lino MD - Last Filed: 09/03/20 14:08>
[2020-09-03 13:52] LABS: Basophils Percent Auto 0.3 % (0-2); Eosinophils Percent Auto 0.1 % (0-4); Hematocrit 31.1 % (42-52); Hemoglobin 10.1 g/dl (14.0-18.0); Imm Gran Abs Auto 0.04 X10*3/uL (0.00-0.03); Imm Gran Pct Auto 0.4 % (0.0-0.4); Lymphocytes Absolute Auto 1.1 X10*3/uL (1.2-4.9); Lymphocytes Percent Auto 11.6 % (20-40); MANUAL DIFF FLAG NO; Mean Corpuscular HGB Conc 32.5 g/dl (31.0-36.0); Mean Corpuscular Hemoglobin 27.1 pg (27.0-33.0); Mean Corpuscular Volume 83.4 fL (80-98); Mean Platelet Volume 9.9 fL (9.4-12.4); Monocytes Absolute Auto 1.1 X10*3/uL (0.1-1.2); Monocytes Percent Auto 11.3 % (2-11); Neutrophils Absolute Auto 7.4 X10*3/uL (2.0-8.3); Neutrophils Percent Auto 76.3 % (45-73); Platelet Count 226 X10*3/uL (160-400); Red Blood Count 3.73 X10*6/uL (4.60-5.80); Red Cell Distribution Width 16.8 % (11.0-16.0); White Blood Count 9.7 X10*3/uL (4.8-10.8)
--- NOTE | 2020-09-03 13:58 | MHC.CM.PN ---
CURRENT PLAN IS FOR PATIENT TO RETURN HOME ON Saturday09/04/20. CASE MANAGEMENT FOLLOWING FOR DISCHARGE NEEDS.
[2020-09-03 14:29] LABS: Alanine Aminotransferase 103 U/L (0-40); Albumin Level 4.1 g/dL (3.5-5.0); Alkaline Phosphatase 105 U/L (39-117); Anion Gap 18 (12-20); Aspartate Amino Transferase 86 U/L (5-37); Bilirubin Direct 0.4 mg/dL (0.0-0.5); Bilirubin Total 0.6 mg/dL (0.0-1.0); Blood Urea Nitrogen 11 mg/dL (9-16); Calcium 8.6 mg/dL (8.4-10.2); Carbon Dioxide 21 mmol/L (22-29); Chloride 99 mmol/L (96-108); Creatinine Clr Calc Pharmacy 133.2; Estimated Glomerular Filt Rate > 60; Glucose Random 58 mg/dL (60-115); Lipase 27 U/L (8-78); Potassium 4.5 mmol/l (3.3-5.1); Sodium 133 mmol/L (135-145)
[2020-09-03 14:44] LABS: Glucose, Whole Blood 60 mg/dL (60-115)
--- NOTE | 2020-09-03 15:07 | P.PNIM_ITS ---
Subjective Subjective Date of Service: 09/03/20 Interval History: Seen in follow-up for acute pancreatitis. Nausea, vomtting is better. A repeat CT showed no obstruction. Has no pain, but refusing to eat or take medication and seem very depressed, blood glucose find to be 58 and replacing,. Try to converse with him via director of career services not saying, and tree sapper say his just recently and he seem much depressed than usual Review of Systems No fever or chill. Abdominal pain, nausea and vomiting present. Physical Exam Vital Signs: Vital Signs: Last Vital Signs Temp 98.7 F 09/03/20 11:31 Pulse 82 09/03/20 11:31 Resp 18 09/03/20 11:31 BP 154/98 H 09/03/20 11:31 Pulse Ox 96 09/03/20 11:31 Body Mass Index 39.9 Const: General: cooperative and no acute distress Orientation/consciousness: patient oriented x3 Resp: Effort & Inspection: normal respiratory effort and able to speak in complete sentences Cardio: Rate: regular rate Rhythm: regular rhythm GI: Other: Epigastric and right upper quadrant abdominal pain, abdominal pain, no rebound, no guarding Auscultation: normal bowel sounds Skin: General skin exam: no rashes or lesions noted Neuro: General: patient oriented x3 Extrem: General: Yes normal to inspection and Yes no pedal edema Psych: Affect: Sad affect present Judgement: Limited judgement present (Psych) Objective Data Current Medications Generic Name Dose Route Start Last Admin Trade Name Freq PRN Reason Stop Dose Admin Acetaminophen 650 mg 08/30/20 09:36 08/31/20 08:19 Acetaminophen 325 Mg Tablet PO 650 mg Q6H PRN Administration Pain, Mild (Pain Scale 1-3) Al Hydroxide/Mg Hydroxide 15 ml 08/30/20 22:35 09/01/20 12:15 Magnesium Hydrox/Alum Hydrox 30 Ml Oral.Susp PO 15 ml Q6H PRN Administration Heartburn Atorvastatin Calcium 10 mg 08/30/20 21:00 09/02/20 22:25 Atorvastatin Calcium 10 Mg Tablet PO 10 mg BEDTIME VENITA Administration Dabigatran 150 mg 08/30/20 09:36 09/03/20 10:22 Dabigatran Etexilate Mesylate 150 Mg Capsule PO Not Given BID VENITA Docusate Sodium 100 mg 09/02/20 21:00 09/03/20 10:22 Docusate Sodium 100 Mg Capsule PO Not Given BID [facility] Escitalopram Oxalate 20 mg 08/30/20 09:55 09/03/20 10:22 Escitalopram Oxalate 20 Mg Tablet PO Not Given DAILY [facility]ITA Famotidine 20 mg 08/30/20 11:45 09/03/20 10:02 Famotidine/Pf 20 Mg/2 Ml Vial IVPUSH 20 mg BID VENITA Administration Hydromorphone HCl 0.5 mg 08/30/20 11:41 08/31/20 03:32 Hydromorphone Hcl 0.5 Mg/0.5 Ml Syringe IVPUSH 0.5 mg Q4H PRN Administration Pain, Severe (Pain Scale 7-10) Hydroxyzine HCl 10 mg 08/30/20 09:36 09/02/20 21:59 Hydroxyzine Hcl 10 Mg Tablet PO 10 mg BEDTIME VENITA Administration Dextrose/Sodium Chloride 1,000 mls @ 100 mls/hr 09/03/20 15:15 D51/2ns IVCONT .Q10H [facility] Levetiracetam 1,000 mg 08/30/20 09:36 09/03/20 10:24 Levetiracetam 1,000 Mg Tablet PO Not Given Q12H [facility] Lisinopril 20 mg 08/30/20 09:36 09/03/20 10:22 Lisinopril 20 Mg Tablet PO Not Given DAILY [facility] Protocol Magnesium Hydroxide 15 ml 08/30/20 21:00 09/02/20 21:59 Milk Of Magnesia 30 Ml Oral.Susp PO 15 ml BEDTIME VENITA Administration Metoprolol Succinate 25 mg 08/30/20 09:36 09/03/20 10:23 Metoprolol Succinate Er 25 Mg Tab.Er.24h PO Not Given DAILY [facility] Protocol Ondansetron HCl 4 mg 08/30/20 00:27 08/31/20 09:53 Ondansetron Hcl 4 Mg/2 Ml Vial IVPUSH 4 mg Q8H PRN Administration Nausea and Vomiting Oxcarbazepine 300 mg 08/30/20 09:36 09/03/20 10:24 Oxcarbazepine 300 Mg Tablet PO Not Given BID [facility] Polyethylene Glycol 17 gm 08/30/20 09:00 09/03/20 10:02 Polyethylene Glycol 3350 17 Gm Powd.Pack PO 17 gm DAILY VENITA Administration Sodium Chloride 3 ml 01/05/21 09:36 09/03/20 10:02 0.9 % Sodium Chloride Flush 3 Ml Syringe IVFLUSH 3 ml QSHIFT VENITA Administration Labs CBC & Chem 7: 09/03/20 13:40 09/03/20 13:40 Assessment and Plan (1) Pancreatitis: Problem details: ABD soft, protuberant. No pain with palpation. He is feeling better. Tolerating a full liquid diet. No N/V. Status: Acute Assessment and Plan: 65-year-old male with past medical history as above who presents to the hospital with complaints of abdominal pain found to have acute pancreatitis # acute pancreatitis--etiology is unclear. It is possible he may have passed a stone given drastic drop in lipase level and now noral. - denies alcohol use, abdominal ultrasound is negative for any acute change of the gallbladder. No gallstone or bile duct dilatation noted. Repeat CT was also unremarkable. He has been refusiong to eat -Surgery has seen him and no indication for surgery. # congestive heart failure with reduced ejection fraction - no evidence of exacerbation at this time - continue Lasix for now which may be changed prior to discharge given patient's acute pancreatitis #Hypoglycemia--Dextrose push followed by IVF with dextrose # AFib - continue dabigatran, metoprolol # hypertension - stable - continue lisinopril #Depression --seem very depressed from grief as recently this is affectng his health including eating and refusing to take meds. Get Psych consult. DVT prophylaxis: Dabigatran Home by tomorrow if getting better
[2020-09-03] MEDS: Dextrose 5 % and 0.45 % NaCl 1,000 ML 100 ML IVCONT ×2 (15:21→22:32)
[2020-09-03 15:29] LABS: Glucose, Whole Blood 163 mg/dL (60-115)
--- NOTE | 2020-09-03 18:17 | PC.NURSE ---
Pt refused all AM meds and all three meals today. Dr. Agrawal made aware.
--- NOTE | 2020-09-03 18:23 | PC.NURSE ---
1445- Pt random glucose critical at 58. POC completed, glucose 60. Pt denies any symptoms. Pt refusing to drink/eat anything. Dr. Agrawal made aware. IV glucose ordered. Given at 1500. Rechecked at 1520- POC 163. D50 1/2NS @ 100 ordered. Fluids hung. Will continue to monitor.
[2020-09-03] MEDS: Milk of Magnesia 30 ML ORAL.SUSP 15 ML PO (22:22)
[2020-09-03] MEDS: Dabigatran Etexilate Mesylate 150 MG CAPSULE PO (22:23)
[2020-09-03] MEDS: levETIRAcetam 1,000 MG TABLET 1000 MG PO (22:23)
[2020-09-03] MEDS: Docusate Sodium 100 MG CAPSULE PO (22:23)
[2020-09-03] MEDS: OXcarbazepine 300 MG TABLET PO (22:23)
[2020-09-03] MEDS: Atorvastatin Calcium 10 MG TABLET PO (22:23)
[2020-09-03] MEDS: hydrOXYzine HCL 10 MG TABLET PO (22:23)
[2020-09-04] VITALS (8 sets, daily range): BP systolic 101–168; BP diastolic 72–107; PULSE 74–106; RESP 18–26; TEMP 20.5–37.3; O2SAT 93–98
--- NOTE | 2020-09-04 | XR_ITS ---
EXAMINATION: XR CHEST CLINICAL INFORMATION: Shortness of breath COMPARISON: Chest radiograph from 07/26/2021 TECHNIQUE: Frontal view of the chest was obtained. FINDINGS: Bilateral low lung volumes. Mild prominence of the pulmonary vasculature. There is no focal consolidation. There is no pneumothorax. Cardiomediastinal silhouette is enlarged. There is no pleural effusions. Osseous structures are intact. Soft tissues are unremarkable. XR/XR chest 1V IMPRESSION: 1. Bilateral low lung volumes. 2. Mild prominence of the pulmonary vasculature. 3. Enlarged cardiomediastinal silhouette.
[2020-09-04] MEDS: OXcarbazepine 300 MG TABLET PO ×2 (08:24→20:03)
[2020-09-04] MEDS: Famotidine/PF 20 MG/2 ML VIAL IVPUSH ×2 (08:24→20:02)
[2020-09-04] MEDS: Escitalopram Oxalate 20 MG TABLET PO (08:24)
[2020-09-04] MEDS: Docusate Sodium 100 MG CAPSULE PO ×2 (08:24→20:03)
[2020-09-04] MEDS: levETIRAcetam 1,000 MG TABLET 1000 MG PO ×2 (08:24→20:02)
[2020-09-04] MEDS: Dextrose 5 % and 0.45 % NaCl 1,000 ML 100 ML IVCONT (08:24)
[2020-09-04] MEDS: Dabigatran Etexilate Mesylate 150 MG CAPSULE PO ×2 (08:24→20:13)
[2020-09-04] MEDS: Metoprolol Succinate ER 25 MG TAB.ER.24H PO (08:24)
[2020-09-04] MEDS: lisinopriL 20 MG TABLET PO (08:24)
[2020-09-04] MEDS: polyethylene glycoL 3350 17 GM POWD.PACK PO (08:25)
[2020-09-04] MEDS: 0.9 % Sodium Chloride Flush 3 ML SYRINGE IVFLUSH ×3 (08:25→23:27)
--- NOTE | 2020-09-04 09:57 | HO.PM.IMPN ---
Subjective Subjective Date of Service: 09/06/20 Interval History: Seen in follow-up for acute pancreatitis which clinically resolved, yet he has been refusing to eat and had episode of hypoglycemia yesterday. He c/o SOB this morning with some rales on exam and my interpretation of stat CXR shows some evidence pulmonary edma and therefore giving IV Lasix. It is difficult to converse with patient as his answers are not straight and seem confused, his baseline is not clear. He seeems clearly depressed and has said to proofsheet corrector that his recently Review of Systems No fever or chill. SoB no abdominal pain,n/v Physical Exam Vital Signs: Vital Signs: Last Vital Signs Temp 97.9 F 09/04/20 07:39 Pulse 93 09/04/20 08:24 Resp 18 09/04/20 07:39 BP 159/93 H 09/04/20 08:24 Pulse Ox 95 09/04/20 07:39 Body Mass Index 39.9 Const: General: cooperative and no acute distress Resp: Effort & Inspection: normal respiratory effort, able to speak in complete sentences and audible wheezes Cardio: Rate: regular rate Rhythm: regular rhythm GI: Other: Non tender, positive bowel sounds Auscultation: normal bowel sounds Skin: General skin exam: no rashes or lesions noted Extrem: General: Yes normal to inspection and Yes no pedal edema Psych: Affect: Sad affect present Judgement: Limited judgement present (Psych) Objective Data Current Medications Generic Name Dose Route Start Last Admin Trade Name Freq PRN Reason Stop Dose Admin Acetaminophen 650 mg 08/30/20 09:36 08/31/20 08:19 Acetaminophen 325 Mg Tablet PO 650 mg Q6H PRN Administration Pain, Mild (Pain Scale 1-3) Al Hydroxide/Mg Hydroxide 15 ml 08/30/20 22:35 09/01/20 12:15 Magnesium Hydrox/Alum Hydrox 30 Ml Oral.Susp PO 15 ml Q6H PRN Administration Heartburn Atorvastatin Calcium 10 mg 08/30/20 21:00 09/03/20 22:23 Atorvastatin Calcium 10 Mg Tablet PO 10 mg BEDTIME VENITA Administration Dabigatran 150 mg 08/30/20 09:36 09/04/20 08:24 Dabigatran Etexilate Mesylate 150 Mg Capsule PO 150 mg BID VENITA Administration Docusate Sodium 100 mg 09/02/20 21:00 09/04/20 08:24 Docusate Sodium 100 Mg Capsule PO 100 mg BID VENITA Administration Escitalopram Oxalate 20 mg 08/30/20 09:55 09/04/20 08:24 Escitalopram Oxalate 20 Mg Tablet PO 20 mg DAILY VENITA Administration Famotidine 20 mg 08/30/20 11:45 09/04/20 08:24 Famotidine/Pf 20 Mg/2 Ml Vial IVPUSH 20 mg BID VENITA Administration Furosemide 40 mg 09/04/20 09:56 Furosemide 40 Mg/4 Ml Vial IVPUSH 09/04/20 09:57 ONCE ONE Protocol Hydromorphone HCl 0.5 mg 08/30/20 11:41 08/31/20 03:32 Hydromorphone Hcl 0.5 Mg/0.5 Ml Syringe IVPUSH 0.5 mg Q4H PRN Administration Pain, Severe (Pain Scale 7-10) Hydroxyzine HCl 10 mg 08/30/20 09:36 09/03/20 22:23 Hydroxyzine Hcl 10 Mg Tablet PO 10 mg BEDTIME VENITA Administration Dextrose/Sodium Chloride 1,000 mls @ 100 mls/hr 09/03/20 15:15 09/04/20 08:24 D51/2ns IVCONT 100 mls/hr .Q10H VENITA Administration Levetiracetam 1,000 mg 08/30/20 09:36 09/04/20 08:24 Levetiracetam 1,000 Mg Tablet PO 1,000 mg Q12H VENITA Administration Lisinopril 20 mg 08/30/20 09:36 09/04/20 08:24 Lisinopril 20 Mg Tablet PO 20 mg DAILY VENITA Administration Protocol Magnesium Hydroxide 15 ml 08/30/20 21:00 09/03/20 22:22 Milk Of Magnesia 30 Ml Oral.Susp PO 15 ml BEDTIME VENITA Administration Metoprolol Succinate 25 mg 08/30/20 09:36 09/04/20 08:24 Metoprolol Succinate Er 25 Mg Tab.Er.24h PO 25 mg DAILY VENITA Administration Protocol Ondansetron HCl 4 mg 08/30/20 00:27 08/31/20 09:53 Ondansetron Hcl 4 Mg/2 Ml Vial IVPUSH 4 mg Q8H PRN Administration Nausea and Vomiting Oxcarbazepine 300 mg 08/30/20 09:36 09/04/20 08:24 Oxcarbazepine 300 Mg Tablet PO 300 mg BID VENITA Administration Polyethylene Glycol 17 gm 08/30/20 09:00 09/04/20 08:25 Polyethylene Glycol 3350 17 Gm Powd.Pack PO 17 gm DAILY VENITA Administration Sodium Chloride 3 ml 08/30/20 09:36 09/04/20 08:25 0.9 % Sodium Chloride Flush 3 Ml Syringe IVFLUSH 3 ml QSHIFT VENITA Administration Labs CBC & Chem 7: 09/03/20 13:40 09/03/20 13:40 Assessment and Plan (1) Pancreatitis: Problem details: Resolved ABD pain though his ABD protuberant. NO longer needed pain medication. Etiology of his pancreatitis is unclear. It is possible he may have passed a stone given drop in lipase level - abdominal ultrasound is negative for any acute change of the gallbladder. No gallstone or bile duct dilatation noted. Repeat CT was also unremarkable. Status: Acute Assessment and Plan: 65-year-old male with past medical history as above who presents to the hospital with complaints of abdominal pain found to have acute pancreatitis # Acute pancreatitis--etiology is unclear. It is possible he may have passed a stone given drastic drop in lipase level and now noral. - denies alcohol use, abdominal ultrasound is negative for any acute change of the gallbladder. No gallstone or bile duct dilatation noted. Repeat CT was also unremarkable. He has been refusiong to eat -Surgery has seen him and no indication for surgery. # congestive heart failure with reduced ejection fraction--and acute decompensation with home lasix on hold. DC IVF -Give IV Lasix, #Hypoglycemia--was given Dextrose push followed by IVF with dextrose, check glucose today # AFib - continue dabigatran, metoprolol # hypertension - stable - continue lisinopril #Depression --seem very depressed from grief as recently this is affectng his health including eating and refusing to take meds. Requested Psych consult. DVT prophylaxis: Dabigatran PT/OT tomorrow, reach out to family or MARINE OILER and try and get understaning of his baseline.
[2020-09-04 10:08] LABS: B Type Natriuretic Peptide 2983 pg/mL (<100)
[2020-09-04] MEDS: Furosemide 40 MG/4 ML VIAL IVPUSH (10:20)
--- NOTE | 2020-09-04 10:29 | PM.PNGS ---
Subjective Subjective Date of Service: 09/04/20 <ISAAC Sevilla - Last Filed: 09/04/20 10:40> 09/04/20 <Ronald Lino MD - Last Filed: 09/04/20 14:25> Interval history: No overnight events. Patient resting comfortably in bed. He denies eating/refuses to eat. He states he is no longer having ABD pain. <ISAAC Sevilla - Last Filed: 09/04/20 10:40> Physical Exam Vital Signs: Vital Signs: Last Vital Signs Temp 97.9 F 09/04/20 07:39 Pulse 93 09/04/20 08:24 Resp 18 09/04/20 07:39 BP 159/93 H 09/04/20 08:24 Pulse Ox 95 09/04/20 07:39 Body Mass Index 39.9 <ISAAC Sevilla - Last Filed: 09/04/20 10:40> Const: General: no acute distress <ISAAC Sevilla - Last Filed: 09/04/20 10:40> Resp: Effort & Inspection: normal respiratory effort <ISAAC Sevilla - Last Filed: 09/04/20 10:40> Cardio: Jugular venous distension: no JVD <ISAAC Sevilla - Last Filed: 09/04/20 10:40> Rate: regular rate <ISAAC Sevilla - Last Filed: 09/04/20 10:40> GI: Inspection: Yes normal to inspection and Yes distended <ISAAC Sevilla - Last Filed: 09/04/20 10:40> Auscultation: normal bowel sounds <ISAAC Sevilla - Last Filed: 09/04/20 10:40> Skin: General skin exam: no rashes or lesions noted <ISAAC Sevilla - Last Filed: 09/04/20 10:40> Extrem: General: Yes no calf tenderness <ISAAC Sevilla - Last Filed: 09/04/20 10:40> Psych: Affect: Indifferent affect present <ISAAC Sevilla - Last Filed: 09/04/20 10:40> Progress Note: A&P Assessment and plan (1) Pancreatitis: Problem details: Resolved ABD pain though his ABD protuberant. NO longer needed pain medication. Etiology of his pancreatitis is unclear. It is possible he may have passed a stone given drop in lipase level - abdominal ultrasound is negative for any acute change of the gallbladder. No gallstone or bile duct dilatation noted. Repeat CT was also unremarkable. <ISAAC Sevilla - Last Filed: 09/04/20 10:40> Status: Acute <ISAAC Sevilla - Last Filed: 09/04/20 10:40> Assessment and Plan: From a surgical standpoint he is doing well. No intervention needed at this time. He will need further care in regards to his mental health as he is clearly depressed and refuses to eat. <ISAAC Sevilla - Last Filed: 09/04/20 10:40> . General Surgery Attending - Beckie Lino M.D. Patient was evaluated and examined at the bedside with Mr. Matt Solorio PA-C. I confirm above findings and plan as documented. No acute surgical issue today. <Ronald Lino MD - Last Filed: 09/04/20 14:25> Fall Risk Details Current Medications: Current Medications Generic Name Dose Route Start Last Admin Trade Name Freq PRN Reason Stop Dose Admin Acetaminophen 650 mg 08/30/20 09:36 08/31/20 08:19 Acetaminophen 325 Mg Tablet PO 650 mg Q6H PRN Administration Pain, Mild (Pain Scale 1-3) Al Hydroxide/Mg Hydroxide 15 ml 08/30/20 22:35 09/01/20 12:15 Magnesium Hydrox/Alum Hydrox 30 Ml Oral.Susp PO 15 ml Q6H PRN Administration Heartburn Atorvastatin Calcium 10 mg 08/30/20 21:00 09/03/20 22:23 Atorvastatin Calcium 10 Mg Tablet PO 10 mg BEDTIME VENITA Administration Dabigatran 150 mg 08/30/20 09:36 09/04/20 08:24 Dabigatran Etexilate Mesylate 150 Mg Capsule PO 150 mg BID VENITA Administration Docusate Sodium 100 mg 09/02/20 21:00 09/04/20 08:24 Docusate Sodium 100 Mg Capsule PO 100 mg BID VENITA Administration Escitalopram Oxalate 20 mg 08/30/20 09:55 09/04/20 08:24 Escitalopram Oxalate 20 Mg Tablet PO 20 mg DAILY VENITA Administration Famotidine 20 mg 08/30/20 11:45 09/04/20 08:24 Famotidine/Pf 20 Mg/2 Ml Vial IVPUSH 20 mg BID VENITA Administration Hydromorphone HCl 0.5 mg 08/30/20 11:41 08/31/20 03:32 Hydromorphone Hcl 0.5 Mg/0.5 Ml Syringe IVPUSH 0.5 mg Q4H PRN Administration Pain, Severe (Pain Scale 7-10) Hydroxyzine HCl 10 mg 08/30/20 09:36 09/03/20 22:23 Hydroxyzine Hcl 10 Mg Tablet PO 10 mg BEDTIME VENITA Administration Levetiracetam 1,000 mg 08/30/20 09:36 09/04/20 08:24 Levetiracetam 1,000 Mg Tablet PO 1,000 mg Q12H VENITA Administration Lisinopril 20 mg 08/30/20 09:36 09/04/20 08:24 Lisinopril 20 Mg Tablet PO 20 mg DAILY VENITA Administration Protocol Magnesium Hydroxide 15 ml 08/30/20 21:00 09/03/20 22:22 Milk Of Magnesia 30 Ml Oral.Susp PO 15 ml BEDTIME VENITA Administration Metoprolol Succinate 25 mg 08/30/20 09:36 09/04/20 08:24 Metoprolol Succinate Er 25 Mg Tab.Er.24h PO 25 mg DAILY VENITA Administration Protocol Ondansetron HCl 4 mg 08/30/20 00:27 08/31/20 09:53 Ondansetron Hcl 4 Mg/2 Ml Vial IVPUSH 4 mg Q8H PRN Administration Nausea and Vomiting Oxcarbazepine 300 mg 08/30/20 09:36 09/04/20 08:24 Oxcarbazepine 300 Mg Tablet PO 300 mg BID VENITA Administration Polyethylene Glycol 17 gm 08/30/20 09:00 09/04/20 08:25 Polyethylene Glycol 3350 17 Gm Powd.Pack PO 17 gm DAILY VENITA Administration Sodium Chloride 3 ml 08/30/20 09:36 09/04/20 08:25 0.9 % Sodium Chloride Flush 3 Ml Syringe IVFLUSH 3 ml QSHIFT VENITA Administration <ISAAC Sevilla - Last Filed: 09/04/20 10:40> Time Spent With Patient Time: Total time spent is greater than 50% in coordination of care (as documented) at patient's floor/unit and/or counseling patient: <ISAAC Sevilla - Last Filed: 09/04/20 10:40> Time with patient: less than 15 minutes <Ronald Lino MD - Last Filed: 09/04/20 14:25>
--- NOTE | 2020-09-04 13:38 | MHC.CM.PN ---
Addendum entered by Paola Mistry 09/04/20 13:39: CORRECTION - FLACO IS PATIENT'S NIECE Original Note: PER CONVERSATION WITH HOSPITALIST, PLAN IS FOR PATIENT TO RETURN HOME (LIKELY TOMORROW) [facility] REFERRAL PLACED TO FOLLOW PER CONVERSATION WITH DAUGHTER.
--- NOTE | 2020-09-04 14:22 | MHC.CM.PN ---
PER CONVERSATION WITH FLACO (HCP/NIECE [phone]), PATIENT IS ACTIVE WITH A VISITING NURSE. 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 CM TO OBTAIN CONTACT INFO FOR [facility] AND UPDATE ACCORDINGLY FOR PATIENT DISCHARGE NEEDS.
--- NOTE | 2020-09-04 18:48 | PC.NURSE ---
0828- Pt appears SOB, with faint fine crackles in bases. Vitals stable. Dr. Agrawal made aware. CXR ordered. Lasix given. IV fluids stopped. Will continue to monitor.
[2020-09-04] MEDS: Atorvastatin Calcium 10 MG TABLET PO (20:03)
[2020-09-04] MEDS: Milk of Magnesia 30 ML ORAL.SUSP 15 ML PO (20:04)
[2020-09-04] MEDS: hydrOXYzine HCL 10 MG TABLET PO (20:04)
[2020-09-05] VITALS (7 sets, daily range): BP systolic 126–156; BP diastolic 63–89; PULSE 80–100; RESP 18–20; TEMP 36.1–37; O2SAT 95–100
[2020-09-05] MEDS: Metoprolol Succinate ER 25 MG TAB.ER.24H PO (10:03)
[2020-09-05] MEDS: Docusate Sodium 100 MG CAPSULE PO ×2 (10:03→20:40)
[2020-09-05] MEDS: Dabigatran Etexilate Mesylate 150 MG CAPSULE PO ×2 (10:03→20:40)
[2020-09-05] MEDS: lisinopriL 20 MG TABLET PO (10:03)
[2020-09-05] MEDS: OXcarbazepine 300 MG TABLET PO ×2 (10:03→20:40)
[2020-09-05] MEDS: Furosemide 40 MG/4 ML VIAL IVPUSH (10:03)
[2020-09-05] MEDS: levETIRAcetam 1,000 MG TABLET 1000 MG PO ×2 (10:04→20:40)
[2020-09-05] MEDS: polyethylene glycoL 3350 17 GM POWD.PACK PO (10:04)
[2020-09-05] MEDS: Escitalopram Oxalate 20 MG TABLET PO (10:04)
[2020-09-05] MEDS: Famotidine/PF 20 MG/2 ML VIAL IVPUSH ×2 (10:04→20:40)
[2020-09-05] MEDS: 0.9 % Sodium Chloride Flush 3 ML SYRINGE IVFLUSH ×3 (10:04→20:58)
--- NOTE | 2020-09-05 11:09 | P.CNPS_ITS ---
History of Present Illness Date of Service: 09/04/20 Chief Complaint: acute pancreatitis Reason for Consult: Recommendations on medication Discussed with referring provider: Yes Sources of Information: patient interviewed and chart reviewed HPI Narrative: Pt seen with deaf interpreter Pt admitted for pancreatitis. Patient stabilized however Dr. Agrawal reports concern for depression and that on 09/03/20 he refused medications, was not eating and resisted having bedding changed; apparently, patients is recently . Today, however patients behaviors seems to have resolved as patient is taking his meds, eating and participating in treatment. Bush Hog Operator approached pt with director compensation and identified self as psychiatrist consulted. Patient initially said his name and that he orignally came to Hospital since he was sick however after this, he stopped responding to questions. At first it was unclear why he was not talking, but as assembly instructions writer left room to get nurse to assess patient, patient was overheard speaking with deaf interpreter. This happened two more times, with patient speaking clearly to director compensation but becoming mute when this assembly instructions writer entered the room. deaf interpreter said that patient was not saying why. Pt was willing to converse briefly with assembly instructions writer. He said that he his not suicidal at all and has no history of self harm. He also said i have no ... and that he has only had lots of girlfriends, but no . Bush Hog Operator expressed desire to be helpful to patient and patient did say a thank you; he also said that he would let us know if he wanted to talk. Patient acknowledged that he lives near many family which was corroborated by nursing staff. Review of Systems Denies dizziness Musculoskeletal: Reports abnormal gait Reports abnormal gait and Denies dizziness [facility] Medical History Bradycardia Cardiomyopathy Chronic atrial fibrillation Chronic HFrEF (heart failure with reduced ejection fraction) CVA (cerebral vascular accident) HTN (hypertension) Obesity Social History: nursing staff reports that patient lives in building complex populated by multiple family members. Diagnostics Vital Signs (24Hr): Vital Signs - 24 hr 09/04/20 11:48 09/04/20 14:53 09/04/20 20:00 Temperature 98.3 F 99.0 F 97.7 F Pulse Rate 106 H 105 H 76 Respiratory Rate 18 26 H Blood Pressure 153/78 H 101/72 123/80 Pulse Oximetry 95 98 97 09/04/20 23:16 09/05/20 00:00 09/05/20 01:17 Temperature 68.9 F L 98.6 F Pulse Rate 88 Respiratory Rate 20 20 Blood Pressure 139/85 Pulse Oximetry 98 09/05/20 07:48 Temperature 97.3 F Pulse Rate 83 Respiratory Rate 18 Blood Pressure 156/89 H Pulse Oximetry 98 Body Mass Index 39.9 Labs Results: 09/03/20 13:40 09/03/20 13:40 Labs: Laboratory Results - last 48 hr 09/03/20 09/03/20 09/03/20 13:40 13:40 14:39 WBC 9.7 RBC 3.73 L Hgb 10.1 L Hct 31.1 L MCV 83.4 MCH 27.1 MCHC 32.5 RDW 16.8 H Plt Count 226 MPV 9.9 Immature Gran % (Auto) 0.4 Neut % (Auto) 76.3 H Lymph % (Auto) 11.6 L Alexander % (Auto) 11.3 H Eos % (Auto) 0.1 Baso % (Auto) 0.3 Lymph # (Auto) 1.1 L Alexander # (Auto) 1.1 Eos # (Auto) 0.0 Baso # (Auto) 0.0 Abs Immat Gran (auto) 0.04 H Absolute Neuts (auto) 7.4 Absolute Nucleated RBC 0.000 Nucleated RBC % (auto) 0.0 Sodium 133 L Potassium 4.5 Chloride 99 Carbon Dioxide 21 L Anion Gap 18 BUN 11 Creatinine 0.69 Estim Creat Clear Calc 133.2 Estimated GFR > 60 POC Glucose 60 Random Glucose 58 L* Calcium 8.6 Total Bilirubin 0.6 Direct Bilirubin 0.4 AST 86 H ALT 103 H Alkaline Phosphatase 105 D B-Natriuretic Peptide Total Protein 7.0 Albumin 4.1 Lipase 27 09/03/20 09/04/20 15:25 09:24 WBC RBC Hgb Hct MCV MCH MCHC RDW Plt Count MPV Immature Gran % (Auto) Neut % (Auto) Lymph % (Auto) Alexander % (Auto) Eos % (Auto) Baso % (Auto) Lymph # (Auto) Alexander # (Auto) Eos # (Auto) Baso # (Auto) Abs Immat Gran (auto) Absolute Neuts (auto) Absolute Nucleated RBC Nucleated RBC % (auto) Sodium Potassium Chloride Carbon Dioxide Anion Gap BUN Creatinine Estim Creat Clear Calc Estimated GFR POC Glucose 163 H Random Glucose Calcium Total Bilirubin Direct Bilirubin AST ALT Alkaline Phosphatase B-Natriuretic Peptide 2983 H Total Protein Albumin Lipase Imaging Radiology Impressions: ITS Impressions Abdomen/Pelvis CT 08/29/20 14:37 IMPRESSION: There is subtle fat stranding adjacent the head of the pancreas which could reflect pancreatitis. The liver has a nodular contour suggesting cirrhosis. Large volume of stool present in the colon, similar to the prior study. Abdomen Ultrasound 08/29/20 20:06 IMPRESSION: No acute change of gallbladder. No gallstone or bile duct dilatation. The pancreas is obscured by bowel gas. Abdomen/Pelvis CT 08/31/20 00:00 IMPRESSION: 1. Persistent fat stranding in the head of the pancreas consistent with pancreatitis. Please correlate clinically and with blood chemistries. 2. Slightly nodular liver suggesting underlying cirrhosis. 3. Question of tiny punctate renal calculi. 4. No evidence of bowel obstruction. Mental Status Exam Mental Status Exam Narrative: Appearance: obese; lying in bed in hospital gown Patient Orientation: Person, Place and Situation Level of Consciousness: Awake and Appropriate Patient Behavior: Avoidant and Good Eye Contact Mood Description: Anxious Affect Description: Anxious Ability to Follow Directions: Fair Speech Pattern: Appropriate (per director compensation) Thought Process: Linear Medications Medications Current Medications Generic Name Dose Route Start Last Admin Trade Name Freq PRN Reason Stop Dose Admin Acetaminophen 650 mg 08/30/20 09:36 08/31/20 08:19 Acetaminophen 325 Mg Tablet PO 650 mg Q6H PRN Administration Pain, Mild (Pain Scale 1-3) Al Hydroxide/Mg Hydroxide 15 ml 08/30/20 22:35 09/01/20 12:15 Magnesium Hydrox/Alum Hydrox 30 Ml Oral.Susp PO 15 ml Q6H PRN Administration Heartburn Atorvastatin Calcium 10 mg 08/30/20 21:00 09/04/20 20:03 Atorvastatin Calcium 10 Mg Tablet PO 10 mg BEDTIME VENITA Administration Dabigatran 150 mg 08/30/20 09:36 09/05/20 10:03 Dabigatran Etexilate Mesylate 150 Mg Capsule PO 150 mg BID VENITA Administration Docusate Sodium 100 mg 09/02/20 21:00 09/05/20 10:03 Docusate Sodium 100 Mg Capsule PO 100 mg BID VENITA Administration Escitalopram Oxalate 20 mg 08/30/20 09:55 09/05/20 10:04 Escitalopram Oxalate 20 Mg Tablet PO 20 mg DAILY VENITA Administration Famotidine 20 mg 08/30/20 11:45 09/05/20 10:04 Famotidine/Pf 20 Mg/2 Ml Vial IVPUSH 20 mg BID VENITA Administration Hydroxyzine HCl 10 mg 08/30/20 09:36 09/04/20 20:04 Hydroxyzine Hcl 10 Mg Tablet PO 10 mg BEDTIME VENITA Administration Levetiracetam 1,000 mg 08/30/20 09:36 09/05/20 10:04 Levetiracetam 1,000 Mg Tablet PO 1,000 mg Q12H VENITA Administration Lisinopril 20 mg 08/30/20 09:36 09/05/20 10:03 Lisinopril 20 Mg Tablet PO 20 mg DAILY VENITA Administration Protocol Magnesium Hydroxide 15 ml 08/30/20 21:00 09/04/20 20:04 Milk Of Magnesia 30 Ml Oral.Susp PO 15 ml BEDTIME VENITA Administration Metoprolol Succinate 25 mg 08/30/20 09:36 09/05/20 10:03 Metoprolol Succinate Er 25 Mg Tab.Er.24h PO 25 mg DAILY VENITA Administration Protocol Ondansetron HCl 4 mg 08/30/20 00:27 08/31/20 09:53 Ondansetron Hcl 4 Mg/2 Ml Vial IVPUSH 4 mg Q8H PRN Administration Nausea and Vomiting Oxcarbazepine 300 mg 08/30/20 09:36 09/05/20 10:03 Oxcarbazepine 300 Mg Tablet PO 300 mg BID VENITA Administration Polyethylene Glycol 17 gm 08/30/20 09:00 09/05/20 10:04 Polyethylene Glycol 3350 17 Gm Powd.Pack PO 17 gm DAILY VENITA Administration Sodium Chloride 3 ml 08/30/20 09:36 09/05/20 10:04 0.9 % Sodium Chloride Flush 3 Ml Syringe IVFLUSH 3 ml QSHIFT VENITA Administration Allergies Allergies Allergy/AdvReac Type Severity Reaction Status Date / Time No Known Allergies Allergy Verified 07/13/20 10:21 Assessment & Plan Bush Hog Operator consulted for medication recommendations Pt is a 65 yo male with multiple serious medical comorbidities, recovering from pancreatitis and currently on Escitalopram for depression and/or anxiety. Pt is a poor historian as he does not want to discuss his mental health with assembly instructions writer. However he did deny any SI or history of SI and communicated that he has family support. It is not clear why he refused to eat or take meds the other day. He's recovering from pancreatitis and review of labs shows some mild metabolic derangement both of which could be contributory. Regardless of etiology, these behaviors seem to have resolved as staff reports that patient is today fully cooperating with treatment and has resumed eating meals. Regarding medication, patient is already on a therapeutic dose of Escitalopram 20mg daily. While c ardiac arrhythmias are rare, QT/QTc prolongation is a potential risk factor and given patients cardiac illness, assembly instructions writer recommends consulting with cardiology before increasing dose. He is also on Oxcarbazepine. Bush Hog Operator is not sure if this is for seizure disorder or mood, but as it can help with mood, the dose could be increased further (though again with assessing risk of med side-effect which has low risk of AV block). That said, it is not clear that patient is depressed or would benefit from a medication change...or that he wants treatment. If patients behaviors remain stable, assembly instructions writer recommends primary team inform patient's outpatient providers and family members (if patient consents) to mo nitor for depression. If there are additional concerns or if patients behaviors return, please re-consult psychiatry. Greater than 50% of the session was spent on counseling and/or coordination of care
--- NOTE | 2020-09-05 13:56 | MHC.CM.PN ---
CM called pts Wanda chun ([phone]) to attempt to obtain baseline information for pt. Wanda is Malaysian speaking only. CM attempted to utilize [employer] services however CM remained on hold for several minutes and then the recording indicated they were experiencing a high call volume. CM then attempted to contact [facility] metal refiner to assist and the call went to . CM will try call again later today.
[2020-09-05] MEDS: Atorvastatin Calcium 10 MG TABLET PO (20:40)
[2020-09-05] MEDS: Milk of Magnesia 30 ML ORAL.SUSP 15 ML PO (20:40)
[2020-09-05] MEDS: hydrOXYzine HCL 10 MG TABLET PO (20:40)
[2020-09-06 02:45] VITALS: BP 139/69; PULSE 65; RESP 18; TEMP 36.3; O2SAT 95
[2020-09-06 07:31] VITALS: BP 134/75; PULSE 72; RESP 18; TEMP 37; O2SAT 99
[2020-09-06 09:18] VITALS: BP 134/75; PULSE 72
[2020-09-06] MEDS: Dabigatran Etexilate Mesylate 150 MG CAPSULE PO (09:18)
[2020-09-06] MEDS: Famotidine/PF 20 MG/2 ML VIAL IVPUSH (09:18)
[2020-09-06] MEDS: lisinopriL 20 MG TABLET PO (09:18)
[2020-09-06] MEDS: OXcarbazepine 300 MG TABLET PO (09:18)
[2020-09-06] MEDS: 0.9 % Sodium Chloride Flush 3 ML SYRINGE IVFLUSH (09:18)
[2020-09-06] MEDS: Metoprolol Succinate ER 25 MG TAB.ER.24H PO (09:18)
[2020-09-06] MEDS: levETIRAcetam 1,000 MG TABLET 1000 MG PO (09:18)
[2020-09-06] MEDS: polyethylene glycoL 3350 17 GM POWD.PACK PO (09:18)
[2020-09-06] MEDS: Escitalopram Oxalate 20 MG TABLET PO (09:19)
[2020-09-06] MEDS: Docusate Sodium 100 MG CAPSULE PO (09:19)
[2020-09-06 10:55] VITALS: BP 121/80; PULSE 79; RESP 18; TEMP 36.5; O2SAT 99
--- NOTE | 2020-09-06 12:00 | MHC.CM.PN ---
Addendum entered by Antonietta Doherty 09/06/20 14:29: PATIENT IS UNABLE TO GET TRANSPORTATION, SET UP ACTION BLS GOING TO PATIENTS HOME [address] [place] to cva -hx l-sided hemaparesis imapired mobility ,transfer and gaite seizures Original Note: NURSE costing manager note electronic medical record reviewed ALONG WITH CASE DISCUSSED WITH STAFF NURSE sultana on multiple disciplinary rounds . met with patient he is anticipating to be discharged home today . 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
--- NOTE | 2020-09-06 12:15 | PM.DS ---
DS: Providers Provider Date of Service: 09/06/20 Date of admission: 08/29/20 23:04 Primary care physician: Unknown Physician Consults: 08/30/20 13:58 Consult to Gastroenterology Routine Consulting Provider: Anisha Moeller Reason for consultation: acute pancreatitis 09/02/20 10:38 Consult to General Surgery Routine Consulting Provider: Jordan Roldan Reason for consultation: abdominal pain Has provider been notified: No 09/03/20 15:08 Consult to Psychiatry Routine Consulting Provider: Desmond Meneses Reason for consultation: Depression affecting medical care DS: Diagnosis Discharge Diagnosis (1) Pancreatitis: Status: Acute Problem details: DS: Medications Discharge Medications Home Medications: Home Medications Medication Instructions Recorded Confirmed citalopram 20 mg tablet 40 mg PO DAILY tab 07/13/20 08/29/20 furosemide 20 mg tablet 20 mg PO DAILY 07/13/20 08/29/20 levetiracetam 1,000 mg tablet 1,000 mg PO Q12H 07/13/20 08/29/20 lisinopril 20 mg tablet 20 mg PO DAILY 07/13/20 08/29/20 pantoprazole 40 mg tablet,delayed 40 mg PO DAILY 07/13/20 08/29/20 release simvastatin 20 mg tablet 20 mg PO DAILY 07/13/20 08/29/20 Pradaxa 150 mg PO BID 08/29/20 08/29/20 hydroxyzine HCl 10 mg PO BEDTIME 08/29/20 08/29/20 metoprolol succinate 25 mg PO DAILY 08/29/20 08/29/20 oxcarbazepine 300 mg PO BID 08/29/20 08/29/20 DS: Summary Hospital Course Hospital Course: Chief Complaint: Abdominal pain This is a 65-year-old male Burkinan-speaking only, with past medical history of heart failure, chronic AFib, hypertension, CVA with residual left hemiparesis,, seizure, who presents to the hospital with complaints of right upper quadrant abdominal pain for 3 days. Patient denies any history of alcohol use, and is usually bed-bound due to his history of stroke. Reports pain is constant, located epigastric to right upper quadrant, stabbing and aching, radiating to the back, has not been having any nausea or vomiting. He denies any chest pain, no shortness of breath, no cough, no urinary symptoms and no lower extremity edema. No diarrhea but has chronic constipation. On arrival To the ED hemodynamically stable with no significant abnormal vitals Labs are significant for WBC count of 11.6, hemoglobin of 11.6, PT of 18.2, INR 1.5, sodium of 130, BUN of 9, creatinine of 0.85, lipase 150, he UA negative, triglycerides normal Abdominal CT shows there is subtle fat stranding adjacent to the head of the pancreas which could be the pancreatitis, the liver has a nodular contour suggestive of cirrhosis. Large volume of stool present in the colon similar to prior study. Medical history: Heart failure, chronic AFib, hypertension, CVA with residual left hemiparesis, Past surgical history: Denies Family history: COPD, CAD Social history: Comes from home, lives with family, wheelchair-bound, denies any tobacco alcohol or illicit drugs Hospital course: Patient was admitted with acute pancreatitis with markedly elevated Lipase level that dropped rapidly and thus suggesting a passed stone. He was seen by surgery and there was no indication for surgery. His diet has been advanced and is tolerating well. Of note he seemed very depressed and reportedly his not long ago. Psychiatry was asked to talk to him but would not participate. He is not sucidal. He wants to go back home with his team primary care physician Status at Discharge Functional status at discharge: wheelchair bound Overall status at discharge: patient is progressing back to baseline Time Spent with Patient Time attestation: Total time spent providing and/or coordinating discharge services: Discharge coordination time: Greater than 30 minutes Physical Exam Vital Signs: Vital Signs: Last Vital Signs Temp 97.7 F 09/06/20 10:55 Pulse 79 09/06/20 10:55 Resp 18 09/06/20 10:55 BP 121/80 09/06/20 10:55 Pulse Ox 99 09/06/20 10:55 Body Mass Index 39.9 Const: General: cooperative and no acute distress Resp: Effort & Inspection: normal respiratory effort, able to speak in complete sentences and audible wheezes Cardio: Rate: regular rate Rhythm: regular rhythm GI: Other: Non tender, positive bowel sounds Auscultation: normal bowel sounds Skin: General skin exam: no rashes or lesions noted Extrem: General: Yes normal to inspection and Yes no pedal edema Psych: Affect: Sad affect present Judgement: Limited judgement present (Psych) DS: Data Data Completed and Pending Labs on day of discharge: Laboratory Tests 08/29/20 08/29/20 08/29/20 15:52 15:53 15:53 WBC 11.6 H RBC 4.24 L Hgb 11.6 L Hct 35.3 L MCV 83.3 MCH 27.4 MCHC 32.9 RDW 16.4 H Plt Count 172 MPV 10.0 Immature Gran % (Auto) 0.3 Neut % (Auto) 75.4 H Lymph % (Auto) 10.4 L [place] % (Auto) 13.3 H Eos % (Auto) 0.3 Baso % (Auto) 0.3 Lymph # (Auto) 1.2 [place] # (Auto) 1.6 H Eos # (Auto) 0.0 Baso # (Auto) 0.0 Abs Immat Gran (auto) 0.04 H Absolute Neuts (auto) 8.8 H Absolute Nucleated RBC 0.000 Nucleated RBC % (auto) 0.0 Smear Tech's Comments VERIFIED PT 18.2 H INR 1.5 H APTT 45.4 H Sodium Potassium Chloride Carbon Dioxide Anion Gap BUN Creatinine Estim Creat Clear Calc Estimated GFR POC Glucose Random Glucose Calcium Total Bilirubin Direct Bilirubin AST ALT Alkaline Phosphatase Troponin I High Sens 13.2 B-Natriuretic Peptide Total Protein Albumin Triglycerides Lipase Urine Color Urine Appearance Urine pH Ur Specific [place] Urine Protein Urine Glucose (UA) Urine Ketones Urine Blood Urine Nitrite Ur Leukocyte Esterase Urine RBC Urine WBC Ur Squamous Epith Cells Urine Bacteria IgG Total IgG Subclass 1 IgG Subclass 2 IgG Subclass 3 IgG Subclass 4 LEE ANN Screen LEE ANN Titer LEE ANN Titer 2 LEE ANN Titer 3 LEE ANN Pattern LEE ANN Pattern 2 LEE ANN Pattern 3 COVID-19 (GIOVANA) COVID-19 Clin Com Hepatitis A IgM Ab Hep Bs Antigen Hep Bs Antibody Hep B Core Total Ab Hepatitis C Ab (EIA) 08/29/20 08/29/20 08/30/20 15:53 18:05 07:48 WBC RBC Hgb Hct MCV MCH MCHC RDW Plt Count MPV Immature Gran % (Auto) Neut % (Auto) Lymph % (Auto) [place] % (Auto) Eos % (Auto) Baso % (Auto) Lymph # (Auto) [place] # (Auto) Eos # (Auto) Baso # (Auto) Abs Immat Gran (auto) Absolute Neuts (auto) Absolute Nucleated RBC Nucleated RBC % (auto) Smear Tech's Comments PT INR APTT Sodium 130 L Potassium 4.1 Chloride 89 L Carbon Dioxide 33 H Anion Gap 12 BUN 9 Creatinine 0.85 Estim Creat Clear Calc 108.1 Estimated GFR > 60 POC Glucose Random Glucose 96 Calcium 9.5 Total Bilirubin 0.3 Direct Bilirubin AST 14 ALT 14 Alkaline Phosphatase 84 Troponin I High Sens B-Natriuretic Peptide Total Protein 7.4 Albumin 4.5 Triglycerides 37 Lipase 850 H Urine Color YELLOW Urine Appearance CLEAR Urine pH 5.5 Ur Specific [place] <= 1.005 Urine Protein 1+ H Urine Glucose (UA) NEG Urine Ketones NEG Urine Blood 2+ H Urine Nitrite NEG Ur Leukocyte Esterase NEG Urine RBC 0-2 Urine WBC 0 Ur Squamous Epith Cells NONE Urine Bacteria TRACE IgG Total IgG Subclass 1 IgG Subclass 2 IgG Subclass 3 IgG Subclass 4 LEE ANN Screen LEE ANN Titer LEE ANN Titer 2 LEE ANN Titer 3 LEE ANN Pattern LEE ANN Pattern 2 LEE ANN Pattern 3 COVID-19 (GIOVANA) Negative COVID-19 Clin Com See Note Hepatitis A IgM Ab Hep Bs Antigen Hep Bs Antibody Hep B Core Total Ab Hepatitis C Ab (EIA) 08/30/20 08/30/20 08/30/20 10:14 10:14 15:43 WBC 12.8 H RBC 4.42 L Hgb 12.0 L Hct 36.7 L MCV 83.0 MCH 27.1 MCHC 32.7 RDW 16.5 H Plt Count 201 MPV 10.4 Immature Gran % (Auto) 0.4 Neut % (Auto) 73.3 H Lymph % (Auto) 12.4 L [place] % (Auto) 13.6 H Eos % (Auto) 0.1 Baso % (Auto) 0.2 Lymph # (Auto) 1.6 [place] # (Auto) 1.7 H Eos # (Auto) 0.0 Baso # (Auto) 0.0 Abs Immat Gran (auto) 0.05 H Absolute Neuts (auto) 9.4 H Absolute Nucleated RBC 0.000 Nucleated RBC % (auto) 0.0 Smear Tech's Comments VERIFIED PT INR APTT Sodium 129 L Potassium 4.9 Chloride 91 L Carbon Dioxide 23 Anion Gap 20 BUN 9 Creatinine 0.84 Estim Creat Clear Calc 109.4 Estimated GFR > 60 POC Glucose Random Glucose 86 Calcium 9.1 Total Bilirubin Direct Bilirubin AST ALT Alkaline Phosphatase Troponin I High Sens B-Natriuretic Peptide Total Protein Albumin Triglycerides Lipase Urine Color Urine Appearance Urine pH Ur Specific [place] Urine Protein Urine Glucose (UA) Urine Ketones Urine Blood Urine Nitrite Ur Leukocyte Esterase Urine RBC Urine WBC Ur Squamous Epith Cells Urine Bacteria IgG Total 987 IgG Subclass 1 584 IgG Subclass 2 255 IgG Subclass 3 46 IgG Subclass 4 31.8 LEE ANN Screen LEE ANN Titer LEE ANN Titer 2 LEE ANN Titer 3 LEE ANN Pattern LEE ANN Pattern 2 LEE ANN Pattern 3 COVID-19 (GI[facility]NA) COVID-19 Clin Com Hepatitis A IgM Ab Hep Bs Antigen Hep Bs Antibody Hep B Core Total Ab Hepatitis C Ab (EIA) 08/30/20 08/30/20 08/30/20 15:43 15:43 19:02 WBC RBC Hgb Hct MCV MCH MCHC RDW Plt Count MPV Immature Gran % (Auto) Neut % (Auto) Lymph % (Auto) [place] % (Auto) Eos % (Auto) Baso % (Auto) Lymph # (Auto) [place] # (Auto) Eos # (Auto) Baso # (Auto) Abs Immat Gran (auto) Absolute Neuts (auto) Absolute Nucleated RBC Nucleated RBC % (auto) Smear Tech's Comments PT INR APTT Sodium Potassium Chloride Carbon Dioxide Anion Gap BUN Creatinine Estim Creat Clear Calc Estimated GFR POC Glucose 88 Random Glucose Calcium Total Bilirubin Direct Bilirubin AST ALT Alkaline Phosphatase Troponin I High Sens B-Natriuretic Peptide Total Protein Albumin Triglycerides Lipase Urine Color Urine Appearance Urine pH Ur Specific [place] Urine Protein Urine Glucose (UA) Urine Ketones Urine Blood Urine Nitrite Ur Leukocyte Esterase Urine RBC Urine WBC Ur Squamous Epith Cells Urine Bacteria IgG Total IgG Subclass 1 IgG Subclass 2 IgG Subclass 3 IgG Subclass 4 LEE ANN Screen NEGATIVE LEE ANN Titer TNP LEE ANN Titer 2 TNP LEE ANN Titer 3 TNP LEE ANN Pattern TNP LEE ANN Pattern 2 TNP LEE ANN Pattern 3 TNP COVID-19 (GIOVANA) COVID-19 Clin Com Hepatitis A IgM Ab Nonreactive Hep Bs Antigen Negative Hep Bs Antibody NONREACTIVE Hep B Core Total Ab Nonreactive Hepatitis C Ab (EIA) Nonreactive 08/31/20 08/31/20 09/01/20 05:56 05:56 11:36 WBC 13.2 H RBC 4.21 L Hgb 11.4 L Hct 34.6 L MCV 82.2 MCH 27.1 MCHC 32.9 RDW 16.5 H Plt Count 233 MPV 10.4 Immature Gran % (Auto) 0.5 H Neut % (Auto) 80.3 H Lymph % (Auto) 9.3 L [place] % (Auto) 9.6 Eos % (Auto) 0.1 Baso % (Auto) 0.2 Lymph # (Auto) 1.2 [place] # (Auto) 1.3 H Eos # (Auto) 0.0 Baso # (Auto) 0.0 Abs Immat Gran (auto) 0.07 H Absolute Neuts (auto) 10.6 H Absolute Nucleated RBC 0.000 Nucleated RBC % (auto) 0.0 Smear Tech's Comments PT INR APTT Sodium 129 L 131 L Potassium 4.7 4.3 Chloride 91 L 97 Carbon Dioxide 23 27 Anion Gap 20 11 L BUN 11 11 Creatinine 0.79 0.73 Estim Creat Clear Calc 116.3 125.9 Estimated GFR > 60 > 60 POC Glucose Random Glucose 82 98 Calcium 8.9 8.4 Total Bilirubin Direct Bilirubin AST ALT Alkaline Phosphatase Troponin I High Sens B-Natriuretic Peptide Total Protein Albumin Triglycerides Lipase 100 H 34 Urine Color Urine Appearance Urine pH Ur Specific [place] Urine Protein Urine Glucose (UA) Urine Ketones Urine Blood Urine Nitrite Ur Leukocyte Esterase Urine RBC Urine WBC Ur Squamous Epith Cells Urine Bacteria IgG Total IgG Subclass 1 IgG Subclass 2 IgG Subclass 3 IgG Subclass 4 LEE ANN Screen LEE ANN Titer LEE ANN Titer 2 LEE ANN Titer 3 LEE ANN Pattern LEE ANN Pattern 2 LEE ANN Pattern 3 COVID-19 (GIOVANA) COVID-19 Clin Com Hepatitis A IgM Ab Hep Bs Antigen Hep Bs Antibody Hep B Core Total Ab Hepatitis C Ab (EIA) 09/03/20 09/03/20 09/03/20 13:40 13:40 14:39 WBC 9.7 RBC 3.73 L Hgb 10.1 L Hct 31.1 L MCV 83.4 MCH 27.1 MCHC 32.5 RDW 16.8 H Plt Count 226 MPV 9.9 Immature Gran % (Auto) 0.4 Neut % (Auto) 76.3 H Lymph % (Auto) 11.6 L [place] % (Auto) 11.3 H Eos % (Auto) 0.1 Baso % (Auto) 0.3 Lymph # (Auto) 1.1 L [place] # (Auto) 1.1 Eos # (Auto) 0.0 Baso # (Auto) 0.0 Abs Immat Gran (auto) 0.04 H Absolute Neuts (auto) 7.4 Absolute Nucleated RBC 0.000 Nucleated RBC % (auto) 0.0 Smear Tech's Comments PT INR APTT Sodium 133 L Potassium 4.5 Chloride 99 Carbon Dioxide 21 L Anion Gap 18 BUN 11 Creatinine 0.69 Estim Creat Clear Calc 133.2 Estimated GFR > 60 POC Glucose 60 Random Glucose 58 L* Calcium 8.6 Total Bilirubin 0.6 Direct Bilirubin 0.4 AST 86 H ALT 103 H Alkaline Phosphatase 105 D Troponin I High Sens B-Natriuretic Peptide Total Protein 7.0 Albumin 4.1 Triglycerides Lipase 27 Urine Color Urine Appearance Urine pH Ur Specific [place] Urine Protein Urine Glucose (UA) Urine Ketones Urine Blood Urine Nitrite Ur Leukocyte Esterase Urine RBC Urine WBC Ur Squamous Epith Cells Urine Bacteria IgG Total IgG Subclass 1 IgG Subclass 2 IgG Subclass 3 IgG Subclass 4 LEE ANN Screen LEE ANN Titer LEE ANN Titer 2 LEE ANN Titer 3 LEE ANN Pattern LEE ANN Pattern 2 LEE ANN Pattern 3 COVID-19 (GIOVANA) COVID-19 Clin Com Hepatitis A IgM Ab Hep Bs Antigen Hep Bs Antibody Hep B Core Total Ab Hepatitis C Ab (EIA) 09/03/20 09/04/20 15:25 09:24 WBC RBC Hgb Hct MCV MCH MCHC RDW Plt Count MPV Immature Gran % (Auto) Neut % (Auto) Lymph % (Auto) [place] % (Auto) Eos % (Auto) Baso % (Auto) Lymph # (Auto) [place] # (Auto) Eos # (Auto) Baso # (Auto) Abs Immat Gran (auto) Absolute Neuts (auto) Absolute Nucleated RBC Nucleated RBC % (auto) Smear Tech's Comments PT INR APTT Sodium Potassium Chloride Carbon Dioxide Anion Gap BUN Creatinine Estim Creat Clear Calc Estimated GFR POC Glucose 163 H Random Glucose Calcium Total Bilirubin Direct Bilirubin AST ALT Alkaline Phosphatase Troponin I High Sens B-Natriuretic Peptide 2983 H Total Protein Albumin Triglycerides Lipase Urine Color Urine Appearance Urine pH Ur Specific [place] Urine Protein Urine Glucose (UA) Urine Ketones Urine Blood Urine Nitrite Ur Leukocyte Esterase Urine RBC Urine WBC Ur Squamous Epith Cells Urine Bacteria IgG Total IgG Subclass 1 IgG Subclass 2 IgG Subclass 3 IgG Subclass 4 LEE ANN Screen LEE ANN Titer LEE ANN Titer 2 LEE ANN Titer 3 LEE ANN Pattern LEE ANN Pattern 2 LEE ANN Pattern 3 COVID-19 (GIOVANA) COVID-19 Clin Com Hepatitis A IgM Ab Hep Bs Antigen Hep Bs Antibody Hep B Core Total Ab Hepatitis C Ab (EIA) Discharge Plan Discharge Anticipated Discharge Date/Time: 09/06/20 11:53 Patient Disposition: Home, Self-Care Referrals: Physician,Unknown [Primary Care Provider] - Discharge Medications: Continued oxcarbazepine 300 mg Tablet 300 mg PO BID RF: 0 hydroxyzine HCl 10 mg Tablet 10 mg PO BEDTIME RF: 0 Pradaxa 150 mg Capsule 150 mg PO BID RF: 0 metoprolol succinate 25 mg Capsule,Sprinkle,Er 24hr 25 mg PO DAILY RF: 0 lisinopril 20 mg tablet 20 mg PO DAILY RF: 0 furosemide 20 mg tablet 20 mg PO DAILY RF: 0 simvastatin 20 mg tablet 20 mg PO DAILY RF: 0 levetiracetam 1,000 mg tablet 1,000 mg PO Q12H RF: 0 citalopram 20 mg tablet 40 mg PO DAILY RF: 0 pantoprazole 40 mg tablet,delayed release (DR/EC) 40 mg PO DAILY RF: 0 Discharge Orders: Discharge Order (Routine); Ordered 09/06/20 Ordered By: Petar Agrawal Diet: advance to usual diet Activity on Discharge: As tolerated Print Language: Ivorian Visit Report Forms: Patient Portal Discharge page Care Plan Goals: Full recovery from pancreatitis Health Concerns: obesity Plan of Treatment: Follow up with your Doctor in a week, call for appointment
[2020-09-06 15:52] VITALS: BP 138/73; PULSE 97; RESP 18; TEMP 36.3; O2SAT 100
== END 2020-09-06 18:15 | disposition home or self-care (01) | DRG 282 ==
LOC: HO.ED 21:11 → HO.S3 08-30 08:32
PROVIDERS: Emergency Medicine; Hospitalist; Nurse Practitioner Primary Care; Physician Assistant Surgical; Admitting Provider Internal Medicine; Emergency Provider Emergency Medicine; PCP Internal Medicine; Visit Provider Internal Medicine
DX: K85.90 Acute pancreatitis without necrosis or infection, unspecified (principal); I11.0 Hypertensive heart disease with heart failure; I50.22 Chronic systolic (congestive) heart failure; I48.91 Unspecified atrial fibrillation; F32.9 Major depressive disorder, single episode, unspecified; E16.2 Hypoglycemia, unspecified; E66.9 Obesity, unspecified; Z68.41 Body mass index [BMI] 40.0-44.9, adult; E87.1 Hypo-osmolality and hyponatremia; Z20.828 Contact with and (suspected) exposure to other viral communicable diseases; Z79.01 Long term (current) use of anticoagulants; Z79.899 Other long term (current) drug therapy
CPT/HCPCS: 36415; 71045; 74176; 74177; 76705; 80048; 80053; 80076; 81001; 82784; 82947; 83690; 83880; 84478; 84484; 85025; 85610; 85730; 86038; 86039; 86704; 86706; 86709; 86803; 87340; 87635; 93005; 96374; 96375; 96376; 99222; 99284; 99285; J1170; J1940; J2270; J2405

== ENCOUNTER 2020-11-23 14:06 | Emergency (ER) | payer MEDICAID, SELFPAY ==
--- NOTE | ~2020-11-23 | CT_ITS ---
EXAMINATION: CT HEAD WITHOUT CONTRAST CLINICAL INFORMATION: Headache COMPARISON: Previous head CT most recent August 2019 TECHNIQUE: Contiguous axial imaging was performed from the skull base to vertex without intravenous administration of contrast. This CT examination was performed using dose optimization techniques as appropriate, variously including the following: *Automated exposure control *Adjustment of mA and/or kV according to patient size (this includes techniques or standardized protocols for targeted exams where dose is matched to indication/reason for exam; i.e. extremities or head) *Use of iterative reconstruction technique DLP: 805 mGy-cm FINDINGS: There is no evidence of an extra-axial collection. There is no evidence of intra-axial or extra-axial hemorrhage. There is an old large right MCA territory infarct similar to previous exam. No acute infarct is seen. The ventricles and extra-axial CSF spaces are slightly prominent suggestive of mild generalized atrophy. There is mild nonspecific periventricular white matter disease. Review at bone windows is unremarkable. No skull fracture is seen. Visualized paranasal sinuses, mastoid air cells and middle ears are clear. CT/CT head/brain wo con IMPRESSION: Old right MCA territory infarct. No change from previous exam.
--- NOTE | ~2020-11-23 | XR_ITS ---
EXAMINATION: XR CHEST CLINICAL INFORMATION: Chest pain. COMPARISON: None TECHNIQUE: Frontal view of the chest was obtained. FINDINGS: There is mild cardiomegaly. Pulmonary vascularity is normal. The lungs are expanded and clear. No gross bony abnormality. XR/XR chest 1V IMPRESSION: Mild cardiomegaly. No acute process seen.
[2020-11-23 14:22] VITALS: BP 116/55; BP 136/80; PULSE 63; PULSE 80; RESP 20; TEMP 37.1; O2SAT 100; O2SAT 98; BMI 37.1
--- NOTE | 2020-11-23 14:29 | ECG_ITS ---
Test Reason : CHEST PAIN Blood Pressure : / mmHG Vent. Rate : 059 BPM Atrial Rate : 039 BPM P-R Int : 000 ms QRS Dur : 100 ms QT Int : 424 ms P-R-T Axes : 000 010 054 degrees QTc Int : 419 ms Atrial fibrillation with slow ventricular response Low voltage QRS Possible Inferior infarct (cited on or before 11-JUN-2011) Cannot rule out Anterior infarct (cited on or before 11-JUN-2011) Abnormal ECG When compared with ECG of 29-AUG-2020 15:31, Vent. rate has decreased BY 30 BPM Nonspecific T wave abnormality now evident in Lateral leads Referred By: Aziza Murcia Electronically Signed By:Presley Shell
--- NOTE | 2020-11-23 14:29 | ED.CHESTPAIN ---
HPI - Chest Pain General Chief Complaint: Chest Pain Stated Complaint: CHEST PAIN Time Seen by Provider: 11/23/20 14:27 Source: EMS and per diem interpreter Mode of arrival: EMS Limitations: no limitations and language barrier History of Present Illness HPI narrative: 65-year-old male Persian-speaking only, with past medical history of heart failure, chronic AFib on pradaxa, hypertension, CVA with residual left hemiparesis,, seizure here with multiple complaints. Patient does over the last 3 days he has had some left lower back pain which radiates to the left buttocks and down the left leg and then all the way up to his posterior head. No injury or trauma. History of disc problems per patient and this feels similar. Patient has left-sided weakness and paresthesias at baseline. Complaining of headache. No vision changes, nausea, vomiting, photophobia. No abdominal pain, vomiting or diarrhea. Is complaining of some left sided upper back pain with radiation to left chest. No SOB, cough, fevers, chills. Related Data Home Medications Medication Instructions Recorded Confirmed furosemide 20 mg tablet 20 mg PO DAILY 07/13/20 11/23/20 levetiracetam 1,000 mg tablet 1,000 mg PO BID@1200,2200 07/13/20 11/23/20 lisinopril 20 mg tablet 20 mg PO DAILY 07/13/20 11/23/20 pantoprazole 40 mg tablet,delayed 40 mg PO DAILY 07/13/20 11/23/20 release simvastatin 20 mg tablet 20 mg PO DAILY 07/13/20 11/23/20 Pradaxa 150 mg PO BID@1200,2200 08/29/20 11/23/20 hydroxyzine HCl 10 mg PO BEDTIME 08/29/20 11/23/20 metoprolol succinate 25 mg PO DAILY 08/29/20 11/23/20 oxcarbazepine 300 mg PO BID@1200,2200 08/29/20 11/23/20 citalopram 40 mg PO DAILY 11/23/20 11/23/20 melatonin 10 mg PO BEDTIME 11/23/20 11/23/20 Allergies Allergy/AdvReac Type Severity Reaction Status Date / Time No Known Allergies Allergy Verified 11/23/20 14:28 Review of Systems Review of Systems: Yes all other systems are reviewed and are negative Constitutional: Constitutional: Reports no additional constitutional complaints, Denies body ache(s), Denies chills, Denies fever(s), Reports headache(s) and Denies weakness Eyes: Eyes: Reports no additional eye complaints and Denies change in vision ENT: Reports system reviewed and no additional complaints, except as documented, Denies dizziness, Reports headache(s), Denies nasal congestion, Denies nasal discharge and Denies neck pain Cardiovascular: Cardiovascular: Reports no additional cardiovascular complaints, Reports chest pain, Denies leg edema and Denies dyspnea Respiratory: Respiratory: Reports no additional respiratory complaints, Denies cough and Denies dyspnea Gastrointestinal: Gastrointestinal: Reports no additional gastrointestinal complaints, Denies abdominal pain, Denies diarrhea, Denies nausea and Denies vomiting Genitourinary: Genitourinary: Denies urinary incontinence Musculoskeletal: Musculoskeletal: Reports no additional musculoskeletal complaints, Reports back pain, Denies arthralgias, Denies joint swelling, Denies neck pain, Reports numbness and Reports tingling Integumentary/Breasts: Skin/Breast: Reports system reviewed and no additional complaints, except as docu and Denies rash Neurologic: Reports system reviewed and no additional complaints, except as documented, Denies Abnormal speech present, Denies dizziness, Reports headache(s), Reports numbness, Reports tingling and Denies weakness PMFSH Past Medical History Attestation statement: The following information was validated with the patient. Source: old records reviewed and nursing notes reviewed Medical History Bradycardia Cardiomyopathy Chronic atrial fibrillation Chronic HFrEF (heart failure with reduced ejection fraction) CVA (cerebral vascular accident) HTN (hypertension) Obesity Family History Family History Father Emphysema lung Mother Cardiovascular disease Social History Social History Household Members: None Housing: Apartment Alcohol intake: unknown Smoking Status: Never smoker Second Hand Smoke Exposure: No Advance Directives: No Advance Directives Information Provided: No service: No Current occupational status: disabled Physical Exam Vital Signs: Vital Signs: Last Vital Signs Temp 98.2 F 11/23/20 18:00 Pulse 65 11/23/20 18:00 Resp 18 11/23/20 18:00 BP 107/64 11/23/20 18:00 Pulse Ox 100 11/23/20 14:22 Body Mass Index 37.1 Const: General: cooperative, healthy appearing, comfortable and no acute distress Orientation/consciousness: patient oriented x3 Limitations: no limitations HENMT: Head: Yes normal to inspection Ears: hearing grossly normal bilaterally General nose exam: Normal external nose present Face and sinus: Yes normal facial exam Mouth: Normal oral and palatal mucosa present Throat: Yes posterior oropharynx normal Eyes: General: appearance normal, both eyes and all related structures Visual Lilly: normal visual lilly by confrontation Alignment and Position: alignment normal Periorbital: periorbital findings normal Eyelids: Yes eyelids normal Conjunctivae: conjunctivae normal Sclerae: sclerae normal Corneas: corneas normal Pupils: Equal, round and reactive pupils present EOM: EOMs intact bilaterally Direct Ophthalmoscopy: normal light reflex and no photophobia Neck: Other: no midline tenderness, FROM Neck: Yes normal visual inspection, Yes full ROM, Yes no lymphadenopathy and Yes no meningeal signs Chest: Chest palpation & inspection: normal inspection of the chest Resp: Effort & Inspection: normal respiratory effort Auscultation: clear to auscultation bilaterally Cardio: Rate: regular rate Rhythm: regular rhythm Peripheral pulses: Peripheral pulses 2+ throughout GI: Inspection: Yes normal to inspection Palpation (GI): Soft to palpation and Tenderness to palpation present (GI) (mild LUQ/LLQ) Auscultation: normal bowel sounds : General: Yes CVA tenderness (mild ) Back/Spine/Pelvis: Other: Patient has lumbar midline tenderness with no step-offs or deformities. He has left-sided soft tissue tenderness from the lumbar area all the way up to the upper thoracic area of the back.. No ecchymosis or crepitus. Back: CVA tenderness (mild ) Thoracic/Lumbar Spine: thoracic and lumbar spine normal to inspection Skin: General skin exam: no rashes or lesions noted Neuro: Other: Left-sided weakness at baseline Right-sided 4/5 strength UE.LE Sensation is intact all four extremities although patient tells me is diminished. General: patient oriented x3, no meningeal signs and Unable to assess gait Cranial nerves: Yes Equal, round and reactive pupils present Cognition (Neuro): normal cognition Speech: No Abnormal speech present Gait exam (Neuro): Unable to assess gait Extrem: General: Yes normal to inspection Course Course Course Narrative: 65 yo male here with complaints of entire left-sided back pain with radiation down the left leg and up to the head and left side of the chest x3 days with no history of trauma or injury. Patient has left-sided weakness with paresthesias at baseline. On exam has lumbar midline tenderness with soft tissue tenderness over the entire left side of the back down into the buttocks and legs. Will need labs, chest x-ray, EKG, CT head, UA. 2000-CXR unremarkable. CT head shows old infarct, no new finding. EKG shows afib, rate controlled. Labs are unremarkable with exception of mild hyponatremia likely secondary to diuretics, and mildly elevated troponin (plan for 3 hr repeat. UA negative. Constellation of symptoms, vague historian and difficult to determine what is acute today. Patient tells me his primary complaint is left lower back pain with radiation to the left buttocks and down the posterior left leg. H/o herniated lumbar disc and feels similar. No injury or trauma. Consider herniated disc vs sciatica. Left sided weakness in LLE at baseline per patient. Altered sensation at baseline per patient. NO saddle anesthesia, no incontinence. No red flag symptoms or progressive symptoms. Patient will need pain control, outpatient f/u with PCP. Also c/o headache, radiation of pain up and down back to head and chest. Troponin x 2 delta, EKG shows afib with rate controlled, CXR and CT head negative. H/o pancreatitis with recent admit. NO focal abdominal pain and normal lipase. Blood pressure well controlled. No new neuro complaints and normal CT head with symptoms >3 days. Patient continues to tell me my nerves are really bad. He tells me he feels unsafe being discharged home tonight although is unable to explain to me specifically why this is. He admits to anxiety but denies SI/HI. Will involve CM, have PT come evaluate the patient in the morning to determine need for STR placement. Nursing to reconcile medications. COVID screen done. 2030-Placed in physician observation as patient will remain in ED tonight pending CM/PT involvement. MDM - Chest Pain MDM Narrative Medical decision making narrative: ACS(Less likely with troponin x2 delta, EKG shows no ischemic changes with atypical CP x 3 days), ICH versus lesion (symptoms >[address] head), renal colic (negative UA), lumbar strain versus disc herniation, UTI/pyelo (negative UA). Medical Records Data Attestation: I reviewed the patient's medical records. Lab Data Attestation: I reviewed the patient's lab results. Result diagrams: 11/23/20 15:31 11/23/20 17:58 Labs: Lab Results 11/23/20 11/23/20 11/23/20 Range/Units 15:21 15:23 15:30 WBC (4.8-10.8) X10*3/uL RBC (4.60-5.80) X10*6/uL Hgb (14.0-18.0) g/dl Hct (42-52) % MCV (80-98) fL MCH (27.0-33.0) pg MCHC (31.0-36.0) g/dl RDW (11.0-16.0) % Plt Count (160-400) X10*3/uL MPV (9.4-12.4) fL Immature Gran % (Auto) (0.0-0.4) % Neut % (Auto) (45-73) % Lymph % (Auto) (20-40) % [place] % (Auto) (2-11) % Eos % (Auto) (0-4) % Baso % (Auto) (0-2) % Lymph # (Auto) (1.2-4.9) X10*3/uL [place] # (Auto) (0.1-1.2) X10*3/uL Eos # (Auto) (0.0-0.4) X10*3/uL Baso # (Auto) (0.0-0.2) X10*3/uL Abs Immat Gran (auto) (0.00-0.03) X10*3/uL Absolute Neuts (auto) (2.0-8.3) X10*3/uL Absolute Nucleated RBC (0.0-0.012) X10*3/uL Nucleated RBC % (auto) (0.0-0.2) /100WBC Hold Blue Top Sodium (135-145) mmol/L Potassium (3.3-5.1) mmol/L Chloride (96-108) mmol/L Carbon Dioxide (22-29) mmol/L Anion Gap (12-20) BUN (9-16) mg/dL Creatinine (0.5-1.4) mg/dL Estim Creat Clear Calc Estimated GFR Random Glucose (60-115) mg/dL Calcium (8.4-10.2) mg/dL Total Bilirubin Cancelled Direct Bilirubin Cancelled AST Cancelled ALT Cancelled Alkaline Phosphatase Cancelled Troponin I High Sens (<3.5-35.0) ng/L Total Protein Cancelled Albumin Cancelled Amylase Cancelled Lipase Urine Color YELLOW Urine Appearance CLEAR Urine pH 6.0 (5.0-8.0) Ur Specific Spooner 1.010 (1.005-1.025) Urine Protein NEG (NEG-TRACE) MG/DL Urine Glucose (UA) NEG (NEG) MG/DL Urine Ketones NEG (NEG) MG/DL Urine Blood NEG (NEG) Urine Nitrite NEG (NEG) Ur Leukocyte Esterase NEG (NEG) COVID-19 (GIOVANA) Negative (Negative) COVID-19 Clin Com See Note 11/23/20 11/23/20 11/23/20 Range/Units 15:31 15:31 15:31 WBC 6.9 (4.8-10.8) X10*3/uL RBC 4.25 L (4.60-5.80) X10*6/uL Hgb 11.7 L (14.0-18.0) g/dl Hct 35.4 L (42-52) % MCV 83.3 (80-98) fL MCH 27.5 (27.0-33.0) pg MCHC 33.1 (31.0-36.0) g/dl RDW 16.2 H (11.0-16.0) % Plt Count 196 (160-400) X10*3/uL MPV 10.5 (9.4-12.4) fL Immature Gran % (Auto) 0.4 (0.0-0.4) % Neut % (Auto) 63.2 (45-73) % Lymph % (Auto) 24.1 (20-40) % [place] % (Auto) 11.2 H (2-11) % Eos % (Auto) 0.7 (0-4) % Baso % (Auto) 0.4 (0-2) % Lymph # (Auto) 1.7 (1.2-4.9) X10*3/uL [place] # (Auto) 0.8 (0.1-1.2) X10*3/uL Eos # (Auto) 0.1 (0.0-0.4) X10*3/uL Baso # (Auto) 0.0 (0.0-0.2) X10*3/uL Abs Immat Gran (auto) 0.03 (0.00-0.03) X10*3/uL Absolute Neuts (auto) 4.4 (2.0-8.3) X10*3/uL Absolute Nucleated RBC 0.000 (0.0-0.012) X10*3/uL Nucleated RBC % (auto) 0.0 (0.0-0.2) /100WBC Hold Blue Top SEE NOTE Sodium (135-145) mmol/L Potassium (3.3-5.1) mmol/L Chloride (96-108) mmol/L Carbon Dioxide (22-29) mmol/L Anion Gap (12-20) BUN (9-16) mg/dL Creatinine (0.5-1.4) mg/dL Estim Creat Clear Calc Estimated GFR Random Glucose (60-115) mg/dL Calcium (8.4-10.2) mg/dL Total Bilirubin Direct Bilirubin AST ALT Alkaline Phosphatase Troponin I High Sens (<3.5-35.0) ng/L Total Protein Albumin Amylase Lipase Cancelled Urine Color Urine Appearance Urine pH (5.0-8.0) Ur Specific Spooner (1.005-1.025) Urine Protein (NEG-TRACE) MG/DL Urine Glucose (UA) (NEG) MG/DL Urine Ketones (NEG) MG/DL Urine Blood (NEG) Urine Nitrite (NEG) Ur Leukocyte Esterase (NEG) COVID-19 (GIOVANA) (Negative) COVID-19 Clin Com 11/23/20 11/23/20 Range/Units 15:41 17:58 WBC (4.8-10.8) X10*3/uL RBC (4.60-5.80) X10*6/uL Hgb (14.0-18.0) g/dl Hct (42-52) % MCV (80-98) fL MCH (27.0-33.0) pg MCHC (31.0-36.0) g/dl RDW (11.0-16.0) % Plt Count (160-400) X10*3/uL MPV (9.4-12.4) fL Immature Gran % (Auto) (0.0-0.4) % Neut % (Auto) (45-73) % Lymph % (Auto) (20-40) % [place] % (Auto) (2-11) % Eos % (Auto) (0-4) % Baso % (Auto) (0-2) % Lymph # (Auto) (1.2-4.9) X10*3/uL [place] # (Auto) (0.1-1.2) X10*3/uL Eos # (Auto) (0.0-0.4) X10*3/uL Baso # (Auto) (0.0-0.2) X10*3/uL Abs Immat Gran (auto) (0.00-0.03) X10*3/uL Absolute Neuts (auto) (2.0-8.3) X10*3/uL Absolute Nucleated RBC (0.0-0.012) X10*3/uL Nucleated RBC % (auto) (0.0-0.2) /100WBC Hold Blue Top Sodium 130 L (135-145) mmol/L Potassium 4.9 (3.3-5.1) mmol/L Chloride 93 L (96-108) mmol/L Carbon Dioxide 27 (22-29) mmol/L Anion Gap 15 (12-20) BUN 11 (9-16) mg/dL Creatinine 0.92 (0.5-1.4) mg/dL Estim Creat Clear Calc 96.1 Estimated GFR > 60 Random Glucose 84 D (60-115) mg/dL Calcium 8.9 (8.4-10.2) mg/dL Total Bilirubin 0.3 Direct Bilirubin < 0.2 AST 16 D ALT 14 Alkaline Phosphatase 77 D Troponin I High Sens 11.5 (<3.5-35.0) ng/L Total Protein 7.3 Albumin 4.3 Amylase 64 Lipase 39 Urine Color Urine Appearance Urine pH (5.0-8.0) Ur Specific Sp[place]er (1.005-1.025) Urine Protein (NEG-TRACE) MG/DL Urine Glucose (UA) (NEG) MG/DL Urine Ketones (NEG) MG/DL Urine Blood (NEG) Urine Nitrite (NEG) Ur Leukocyte Esterase (NEG) COVID-19 (GIOVANA) (Negative) COVID-19 Clin Com Imaging Data Chest x-ray: Attestation: I personally reviewed and interpreted this imaging study as follows: Radiologist's impression: EXAMINATION: XR CHEST CLINICAL INFORMATION: Chest pain. COMPARISON: None TECHNIQUE: Frontal view of the chest was obtained. FINDINGS: There is mild cardiomegaly. Pulmonary vascularity is normal. The lungs are expanded and clear. No gross bony abnormality. XR/XR chest 1V IMPRESSION: Mild cardiomegaly. No acute process seen. CT scan - head: Attestation: I personally reviewed and interpreted this imaging study as follows: Radiologist's impression: COMPARISON: Previous head CT most recent August 2019 TECHNIQUE: Contiguous axial imaging was performed from the skull base to vertex without intravenous administration of contrast. This CT examination was performed using dose optimization techniques as appropriate, variously including the following: *Automated exposure control *Adjustment of mA and/or kV according to patient size (this includes techniques or standardized protocols for targeted exams where dose is matched to indication/reason for exam; i.e. extremities or head) *Use of iterative reconstruction technique DLP: 805 mGy-cm FINDINGS: There is no evidence of an extra-axial collection. There is no evidence of intra-axial or extra-axial hemorrhage. There is an old large right MCA territory infarct similar to previous exam. No acute infarct is seen. The ventricles and extra-axial CSF spaces are slightly prominent suggestive of mild generalized atrophy. There is mild nonspecific periventricular white matter disease. Review at bone windows is unremarkable. No skull fracture is seen. Visualized paranasal sinuses, mastoid air cells and middle ears are clear. CT/CT head/brain wo con IMPRESSION: Old right MCA territory infarct. No change from previous exam. ECG Data ECG #1: Attestation: I personally reviewed and interpreted this ECG as follows: ECG interpretation date: 11/23/20 ECG interpretation time: 15:21 Interpretation: Afib with rate 59, normal qrs, normal qtc Discharge Plan Discharge Clinical Impression: Chronic atrial fibrillation, Lumbar strain, Acute hyponatremia, Anxiety Patient Disposition: er [facility] Prescriptions: No Action citalopram 40 mg tablet 40 mg PO DAILY RF: 0 melatonin 5 mg tablet 10 mg PO BEDTIME RF: 0 oxcarbazepine 300 mg Tablet 300 mg PO BID@1200,2200 RF: 0 hydroxyzine HCl 10 mg Tablet 10 mg PO BEDTIME RF: 0 Pradaxa 150 mg Capsule 150 mg PO BID@1200,2200 RF: 0 metoprolol succinate 25 mg Capsule,Sprinkle,Er 24hr 25 mg PO DAILY RF: 0 lisinopril 20 mg tablet 20 mg PO DAILY RF: 0 furosemide 20 mg tablet 20 mg PO DAILY RF: 0 simvastatin 20 mg tablet 20 mg PO DAILY RF: 0 levetiracetam 1,000 mg tablet 1,000 mg PO BID@1200,2200 RF: 0 pantoprazole 40 mg tablet,delayed release (DR/EC) 40 mg PO DAILY RF: 0
[2020-11-23] MEDS: Acetaminophen 325 MG TABLET 650 MG PO (15:35)
[2020-11-23] MEDS: oxyCODONE HCl Immed Release 5 MG TABLET PO (15:36)
[2020-11-23 15:38] LABS: MANUAL DIFF FLAG NO
[2020-11-23 15:40] LABS: Appearance Urine CLEAR; Color Urine YELLOW; Glucose Urine UA NEG (NEG); Leukocyte Esterase Urine NEG (NEG); Nitrite Urine NEG (NEG); Urine Blood NEG (NEG); Urine Ketones NEG (NEG); Urine Protein NEG (NEG-TRACE)
[2020-11-23 15:50] LABS: Basophils Percent Auto 0.4 % (0-2); Eosinophils Absolute Auto 0.1 X10*3/uL (0.0-0.4); Eosinophils Percent Auto 0.7 % (0-4); Hematocrit 35.4 % (42-52); Hemoglobin 11.7 g/dl (14.0-18.0); Imm Gran Abs Auto 0.03 X10*3/uL (0.00-0.03); Imm Gran Pct Auto 0.4 % (0.0-0.4); Lymphocytes Absolute Auto 1.7 X10*3/uL (1.2-4.9); Lymphocytes Percent Auto 24.1 % (20-40); Mean Corpuscular HGB Conc 33.1 g/dl (31.0-36.0); Mean Corpuscular Hemoglobin 27.5 pg (27.0-33.0); Mean Corpuscular Volume 83.3 fL (80-98); Mean Platelet Volume 10.5 fL (9.4-12.4); Monocytes Absolute Auto 0.8 X10*3/uL (0.1-1.2); Monocytes Percent Auto 11.2 % (2-11); Neutrophils Absolute Auto 4.4 X10*3/uL (2.0-8.3); Neutrophils Percent Auto 63.2 % (45-73); Platelet Count 196 X10*3/uL (160-400); Red Blood Count 4.25 X10*6/uL (4.60-5.80); Red Cell Distribution Width 16.2 % (11.0-16.0); White Blood Count 6.9 X10*3/uL (4.8-10.8)
[2020-11-23 16:18] LABS: COVID-19 Test Negative (Negative); IDNOW Serial# 9DD0AD1C
[2020-11-23 18:00] VITALS: BP 107/64; PULSE 65; RESP 18; TEMP 36.8
[2020-11-23 18:34] LABS: Anion Gap 15 (12-20); Blood Urea Nitrogen 11 mg/dL (9-16); Calcium 8.9 mg/dL (8.4-10.2); Carbon Dioxide 27 mmol/L (22-29); Chloride 93 mmol/L (96-108); Creatinine Clr Calc Pharmacy 96.1; Estimated Glomerular Filt Rate > 60; Glucose Random 84 mg/dL (60-115); Potassium 4.9 mmol/L (3.3-5.1); Sodium 130 mmol/L (135-145)
[2020-11-23 19:02] LABS: Alanine Aminotransferase 14 U/L (0-40); Albumin Level 4.3 g/dL (3.5-5.0); Alkaline Phosphatase 77 U/L (39-117); Amylase 64 U/L (28-100); Aspartate Amino Transferase 16 U/L (5-37); Bilirubin Direct < 0.2 mg/dL (0.0-0.5); Bilirubin Total 0.3 mg/dL (0.0-1.0); Lipase 39 U/L (8-78); Total Protein 7.3 g/dL (6.5-8.0)
[2020-11-23 19:25] LABS: Troponin-I High Sensitivity 11.5 ng/L (<3.5-35.0)
[2020-11-23 20:37] LABS: Troponin-I High Sensitivity 12.1 ng/L (<3.5-35.0)
--- NOTE | 2020-11-23 21:44 | MHC.CM.ED ---
Addendum entered by Eri Mayberry 11/23/20 22:06: CM to call [facility] in am for PCP/ last office visit/ med list. Original Note: CM met with pt at request of Aziza Junior Pt to stay overnight with PT assessment in the am. Pt c/o generalized pain, headache and difficulty using his wheelchair with help of WEB PRESSMAN. Pt states he has a WEB PRESSMAN daily, José Miguel Machado ([phone]), who works for [employer] and his paid for by [employer], a [employer] AS WEB PRESSMAN program. Pt tells CM he has a visiting nurse twice a week named Johanny, but does not know what agency she works for. Pt knows his PCP is at [facility], but does not know his name. Does not get meals on wheels, as WEB PRESSMAN cooks for him. Pt requests a HCP be completed with his sister, Cheryl Luu ([phone]) as his HCP. Spoke with José Miguel, who tells CM that pt has been weaker and less able to help himself to use his wheelchair. José Miguel does not know who the primary care doctor is, but that he is at [facility]. José Miguel does not know what company the visiting nurse works for. Pt requests [facility] or [facility] for STR if recommended. Referrals placed. CM to follow for d/c needs.
[2020-11-24] VITALS (10 sets, daily range): BP systolic 112–152; BP diastolic 61–79; PULSE 52–80; RESP 16–20; TEMP 36.6; O2SAT 95–98
[2020-11-24] MEDS: hydrOXYzine HCL 10 MG TABLET PO (00:04)
[2020-11-24] MEDS: levETIRAcetam 1,000 MG TABLET 1000 MG PO ×2 (00:04→12:55)
[2020-11-24] MEDS: OXcarbazepine 300 MG TABLET PO ×2 (00:05→12:56)
[2020-11-24] MEDS: HYDROmorphone HCl 0.5 MG/0.5 ML SYRINGE IVPUSH (01:58)
[2020-11-24] MEDS: Melatonin 3 MG TABLET 9 MG PO (02:20)
[2020-11-24] MEDS: Omeprazole 20 MG CAPSULE.DR PO (07:55)
[2020-11-24] MEDS: Atorvastatin Calcium 10 MG TABLET PO (07:56)
[2020-11-24] MEDS: Furosemide 20 MG TABLET PO (07:56)
[2020-11-24] MEDS: Escitalopram Oxalate 20 MG TABLET PO (07:56)
[2020-11-24] MEDS: Metoprolol Succinate ER 25 MG TAB.ER.24H PO (07:56)
--- NOTE | 2020-11-24 12:23 | PC.NURSE ---
CAse management states pt can go home to [facility], pt states he has disc pain in his back that is giving him chest and head pain. Provider to bedside, pt states he does not want to go home, wants pain medication and to go to a SNF. He states the back pain is radiating into his chest and is not chest pain. Pt then falls asleep when staff leaves the room.
--- NOTE | 2020-11-24 12:50 | MHC.CM.ED ---
Received notification from ISAAC Deutsch that patient does not feel he can go home at this time due to pain and increased weakness. Requesting to go to short term rehab. Referrals have already been made to [facility] and [facility]. [facility] does not accept [facility]. [facility] will not have a male bed before tomorrow. Per BILL Valdez, patient never tested positive for Covid or had the Covid vaccine. He never declined it. He just hasn't been able to be scheduled for one. Zhanna at [facility] aware. Continue to monitor for d/c needs.
[2020-11-24] MEDS: Cyclobenzaprine HCl 10 MG TABLET PO (12:55)
[2020-11-24] MEDS: Dabigatran Etexilate Mesylate 150 MG CAPSULE PO ×2 (12:56→22:35)
[2020-11-24] MEDS: oxyCODONE HCl Immed Release 5 MG TABLET PO (12:56)
--- NOTE | 2020-11-24 15:26 | PC.NURSE ---
pt sleeping soundly, He was woken to ask if RN could talk to his niece, pt states he needs pain medicine.Pt asking for bilingual interpreter, will update fmily and return call.
--- NOTE | 2020-11-24 16:49 | PC.NURSE ---
Pt has been cleaned and repositioned, he was wet from spilling urinal. HE is asking staff if he can go home, explained to pt he had been ready for discharge home and asked to go to SNF, so plan was changed to get him to SNF tomorrow. Pt states he now wants to go home. Informed pt he can discuss with case management in the morning.
--- NOTE | 2020-11-24 21:10 | PC.NURSE ---
PT AWAKE AND WATCHING TV IN ROOM. PT IN NAD AND DENIES ANY COMPLAINTS AT THIS TIME. PT URINATING IN URINAL IN BED. WILL CONTINUE TO MONITOR PT.
--- NOTE | 2020-11-25 00:34 | PC.NURSE ---
PT USING URINAL AT THIS TIME W/O DIFFICULTY. PT DENIES ANY COMPLAINTS.
--- NOTE | 2020-11-25 03:23 | PC.NURSE ---
PT AWAKE AND SITTING UP IN HOSPITAL BED AND REQUESTING SLEEPING MEDS. PT WAS ALREADY GIVEN SLEEP MEDS. WILL CONTINUE TO MONITOR PT,
--- NOTE | 2020-11-25 04:37 | PC.NURSE ---
PT IN NAD, WAKES TO VOICE, PT REQUESTING BLANKET. PT USING URINAL, PT IN NAD. WILL CONTINUE TO MONITOR PT.
--- NOTE | 2020-11-25 05:43 | PC.NURSE ---
Pt awake and watching tv, denies complaints. will continue to monitor pt.
[2020-11-25 08:40] VITALS: BP 130/73; PULSE 56
[2020-11-25] MEDS: Metoprolol Succinate ER 25 MG TAB.ER.24H PO (08:40)
[2020-11-25 08:42] VITALS: BP 130/73; PULSE 56
[2020-11-25] MEDS: lisinopriL 20 MG TABLET PO (08:42)
[2020-11-25] MEDS: Atorvastatin Calcium 10 MG TABLET PO (08:42)
[2020-11-25] MEDS: Escitalopram Oxalate 20 MG TABLET PO (08:43)
[2020-11-25] MEDS: Furosemide 20 MG TABLET PO (08:43)
[2020-11-25] MEDS: Omeprazole 20 MG CAPSULE.DR PO (08:43)
[2020-11-25 08:48] VITALS: BP 130/73; PULSE 56; RESP 14; TEMP 36.7; O2SAT 97
--- NOTE | 2020-11-25 08:59 | PC.NURSE ---
pt alert, denies pain. Metoprolol held d/t DE not within parameters. a.m. care provided, breakfast given. Awaiting case management.
[2020-11-25 11:08] VITALS: BP 131/72; PULSE 70; RESP 14; TEMP 36.4; O2SAT 99
--- NOTE | 2020-11-25 11:20 | PC.NURSE ---
Case management at bedside speaking with pt. Plan is to d/c to home at noon with services in place prior to admission.
--- NOTE | 2020-11-25 12:24 | MHC.CM.ED ---
pt did not qualify for STR per PT eval and did not want to go to snf as [facility], he wants to return to his apt. 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 has been made by a previous CM for [employer]. his risk management internship is provided by [employer]. pt is wc bound at [facility] , he has a manual wc and an electric scooter at home. pt is to call his risk management internship to ensure his apt is open and the risk management internship is there to greet him - the nurse is managing this. PA and rn are aware of dc plan. cm to cont. to follow.
--- NOTE | 2020-11-25 12:31 | PC.NURSE ---
Spoke with BILL Valdez who states he will meet pt home for approx 1300 transfer
== END 2020-11-25 13:54 | disposition home or self-care (01) ==
PROVIDERS: Nurse Practitioner Family; Emergency Provider Emergency Medicine; PCP Internal Medicine
DX: I48.20 Chronic atrial fibrillation, unspecified (principal); S39.012A Strain of muscle, fascia and tendon of lower back, initial encounter; X58.XXXA Exposure to other specified factors, initial encounter; E87.1 Hypo-osmolality and hyponatremia; F41.9 Anxiety disorder, unspecified; R51.9 Headache, unspecified; M54.42 Lumbago with sciatica, left side; Z20.822 Contact with and (suspected) exposure to COVID-19; I10 Essential (primary) hypertension; I69.354 Hemiplegia and hemiparesis following cerebral infarction affecting left non-dominant side; Z79.01 Long term (current) use of anticoagulants; Z79.02 Long term (current) use of antithrombotics/antiplatelets; Z79.899 Other long term (current) drug therapy; Y93.9 Activity, unspecified; Y92.039 Unspecified place in apartment as the place of occurrence of the external cause; Y99.9 Unspecified external cause status
CPT/HCPCS: 36415; 70450; 71045; 80048; 80076; 81003; 82150; 83690; 84484; 85025; 87635; 93005; 96374; 97162; 99285; J1170

== ENCOUNTER 2021-01-08 10:52 | Inpatient (IN) | payer MEDICAID, SELFPAY ==
[2021-01-08] VITALS (10 sets, daily range): BP systolic 119–174; BP diastolic 67–98; PULSE 50–84; RESP 16–22; TEMP 36.3–37.1; O2SAT 92–100; BMI 42.7
--- NOTE | ~2021-01-08 | XR_ITS ---
EXAMINATION: XR FOOT, LEFT CLINICAL INFORMATION: Left foot redness, warmth, and swelling. COMPARISON: None TECHNIQUE: AP, lateral, and oblique views of the left foot. Technically limited study. Best possible images were obtained. FINDINGS: Bony alignments are intact. The cortices are intact. Articular margins, joint space appear well-maintained. Soft tissues are unremarkable. XR/XR foot LT 2V IMPRESSION: No radiographic evidence of any osseous or articular or soft tissue abnormalities.
--- NOTE | ~2021-01-08 | CT_ITS ---
EXAMINATION: CT CHEST, ABDOMEN AND PELVIS WITHOUT CONTRAST CLINICAL INFORMATION: Reason for Exam SOB, chest pain, abnormal CXR COMPARISON: No pertinent prior studies are available for comparison TECHNIQUE: Multidetector volumetric imaging was performed from the thoracic inlet through the pubic symphysis without intravenous contrast. Oral contrast: No Sagittal and coronal reformatted images were obtained on the technologist workstation. This CT examination was performed using dose optimization techniques as appropriate, variously including the following: *Automated exposure control. *Adjustment of mA and/or kV according to patient size (this includes techniques or standardized protocols for targeted exams where dose is matched to indication/reason for exam; i.e. extremities or head). *Use of iterative reconstruction technique. Total exam dose-length product 2114.1 mGy-cm FINDINGS: Technically limited study since patient was unable to raise arms above the head, and follow breathing instructions. LUNG: Concordant with prior chest radiograph, there is indeed patchy multilobar airspace disease identified within the right upper, middle and lower lobes. The left lung is relatively clear. The tracheobronchial tree is patent. PLEURA: No pleural effusion or pneumothorax. MEDIASTINUM: There is mild enlargement of all 4 cardiac chambers. No pericardial effusion. No hilar or mediastinal lymphadenopathy. VASCULAR: No evidence of any aneurysm. Mild atherosclerotic disease of the aorta and mild coronary arterial calcifications. CHEST WALL/AXILLA: No axillary or internal mammary lymphadenopathy. LIVER, GALLBLADDER AND BILIARY TREE: Grossly unremarkable. Technically limited due to motion related artifacts and lack of contrast. The gallbladder grossly appears unremarkable. Suboptimally visualized due to motion and relative collapse appearance. PANCREAS: Grossly unremarkable. SPLEEN: Normal size. No focal lesion. ADRENAL GLANDS: Normal; no mass. KIDNEYS AND URETERS: The kidneys are normal in size, shape, and attenuation. No hydronephrosis, hydroureter, or calculi. GASTROINTESTINAL TRACT: Stomach and small bowel non-dilated. No colonic wall thickening or pericolonic inflammatory changes. Nonvisualized pancreas without any inflammatory changes around the cecum. ABDOMINAL WALL: No significant hernia is appreciated. LYMPHOVASCULAR STRUCTURES: No lymphadenopathy. The aorta is unremarkable. BLADDER: No focal mass or wall thickening seen. No bladder calculi. PELVIC VISCERA: There is no pelvic mass present. There is no free fluid and/or free air present. OSSEOUS STRUCTURES: No acute or suspicious osseous abnormality. CT/CT abdomen pelvis wo con IMPRESSION: 1. Technically limited study since the patient was unable to raise arm above head as well as follow breathing instructions resulting in significant beam hardening artifacts as well as motion related artifacts. 2. Abnormal CT scan of the chest, shows multilobar patchy airspace disease involving the right hemithorax, concordant with prior chest radiograph done earlier today. 3. Mild cardiomegaly. Mild atherosclerotic disease of the aorta and mild coronary arterial calcifications. 4. The CT scan of the abdomen and pelvis is technically limited as well, grossly appears unremarkable.
--- NOTE | ~2021-01-08 | US_ITS ---
EXAMINATION: US VENOUS ULTRASOUND WITH DOPPLER LOWER EXTREMITY, LEFT CLINICAL INFORMATION: Swelling and pain COMPARISON: Previous exam from yesterday TECHNIQUE: Ultrasound of the deep veins is performed from the hip to the calf with compression sonography and color and pulse Doppler assessment. Spectral analysis with color-flow imaging is performed. FINDINGS: Exam is limited due to patient body habitus. No DVT is seen. There is normal venous compression and respiratory variation and augmented flow. The visualized common femoral vein, superficial femoral vein, profunda femoral vein, popliteal vein, and the trifurcation region shows no evidence of deep venous thrombosis. . US/US venous duplex LE IMPRESSION: Limited exam. No DVT seen..
--- NOTE | ~2021-01-08 | XR_ITS ---
EXAMINATION: XR CHEST CLINICAL INFORMATION: Shortness of breath. COMPARISON: Chest done on 11/23/2020. TECHNIQUE: Frontal view of the chest was obtained. FINDINGS: Low lung volume is present. Patchy airspace disease is noted throughout the entire right lung field. The cardiac mediastinal silhouette is enlarged but stable. No evidence of any pleural effusion or pneumothorax. Visualized upper abdomen is unremarkable. XR/XR chest 1V IMPRESSION: Low lung volume and multifocal patchy airspace disease throughout the right lung field, new since 11/23/2020. Stable mild cardiomegaly.
--- NOTE | ~2021-01-08 | CT_ITS ---
STUDY PERFORMED: CTA ABDOMEN AND PELVIS WITHOUT AND WITH CONTRAST HISTORY: Abdomen pain. Clinical concern regarding mesenteric ischemia DESCRIPTION: Routine abdomen and pelvis CTA protocol with contrast was performed. 100 mL of Omnipaque 350 was administered. 3D POSTPROCESSING: Maximum intensity projections angiographic images were processed from the initial data set by the radiologist. DOSE LOWERING TECHNIQUES: This CT examination was performed using dose optimization techniques as appropriate, variously including the following: - Automated exposure control - Adjustment of mA and/or kV according to patient size (this includes techniques or standardized protocols for targeted exams where dose is matched to indication/reason for exam; i.e. extremities or head) - Use of iterative reconstruction technique DLP: 570 mGycm. COMPARISON: Selected portions of a CT 01/08/21 FINDINGS: Digital domestic technician: Gas and fecal residue throughout the colon. Devices overlie the patient. There is significant artifact related to positioning of the upper extremities. VASCULAR: ABDOMINAL AORTA: The abdominal aorta is patent. There is no aneurysm. Mild plaque. No significant narrowing.. RIGHT LOWER EXTREMITY: The right common iliac artery, right external iliac artery, right internal iliac artery, right common femoral artery and the right superficial femoral and profunda femoral arteries are widely patent.. LEFT LOWER EXTREMITY: The left common iliac artery, left external iliac artery, left internal iliac artery, left common femoral artery and the left superficial femoral and profunda femoral arteries are widely patent. CELIOMESENTERIC ARTERIES: There is a separate origin of the splenic artery which is patent. There is a separate origin of the hepatic artery which is patent. The SMA is widely patent. The inferior mesenteric artery is patent.. RENAL ARTERIES: There are single patent renal arteries on each side. NONVASCULAR: Lung Bases: No suspicious abnormality the visualized lower chest. Liver, Gallbladder and Biliary Tree: Markedly limited by artifact. Fatty change in the liver. No definite early enhancing focal liver lesion. Small liver lesions would not be detectable. There is no opaque gallstone. There is no biliary dilation. Pancreas: No suspicious abnormality. Spleen: Markedly limited by artifact. No large abnormality. Adrenal Glands: No suspicious abnormality Kidneys and Ureters: There is no dilation of the urinary collecting system on either side. There are areas of cortical scarring. The nephrograms appear symmetric. Bladder: The bladder is moderately distended. No suspicious abnormality Gastrointestinal Tract: There is no colonic wall thickening. No pneumatosis or pneumoperitoneum. No definite small bowel wall thickening. The stomach is not well evaluated. Abdominal Wall: No significant hernia is appreciated. Tiny fat-containing umbilical hernia. There is some mild subcutaneous fat stranding. Lymph Nodes: There are no measurably enlarged abdominal or pelvic lymph nodes. There is no free intraperitoneal fluid. Pelvic Viscera: No suspicious abnormality Osseous Structures: No suspicious abnormality. There is degenerative change with vacuum phenomenon at L5/S1 CT/CT angio abdomen pelvis IMPRESSION: Artifact limits detail. There is no significant narrowing of the visceral branches of the abdominal aorta. There are no areas of large embolus or critical narrowing. No manifestations of GI tract ischemia. Bilateral renal cortical scarring
--- NOTE | ~2021-01-08 | US_ITS ---
EXAMINATION: US VENOUS ULTRASOUND WITH DOPPLER LOWER EXTREMITY, LEFT CLINICAL INFORMATION: Pain and swelling. COMPARISON: None TECHNIQUE: Ultrasound of the deep veins is performed from the hip to the calf with compression sonography and color and pulse Doppler assessment. Spectral analysis with color-flow imaging is performed. FINDINGS: Limited study. Incomplete evaluation of the lower deep veins. Technologist documents patient unable to tolerate compression. There is normal color flow seen in the common femoral vein, greater saphenous vein, profunda spleen, femoral vein. Popliteal vein is not well seen. As noted above, compression sonography could not be tolerated. Partially visualized posterior tibial vein demonstrates normal color flow. The peroneal veins were not seen. If the patient's symptoms persist, followup ultrasound in 5-7 days might be of value to exclude proximal propagation from a non-visualized calf vein. US/US venous duplex LE IMPRESSION: 1. Incomplete evaluation of the deep venous system, patient unable to tolerate compression evaluation. Deep venous thrombosis cannot be excluded. 2. Color flow seen in the common femoral vein to the popliteal vein suggesting gross patency. 3. The popliteal vein is not visualized. Limited evaluation of the calf veins. The peroneal veins could not be seen. 4. Recommend short-term followup ultrasound for reassessment.
--- NOTE | 2021-01-08 10:59 | ED_ITS ---
HPI - SOB/Dyspnea General Source: patient and EMS <ISAAC Brown - Last Filed: 01/08/21 14:10> Mode of arrival: EMS <ISAAC Brown Last Filed: 01/08/21 14:10> Limitations: language barrier <ISAAC Brown Last Filed: 01/08/21 14:10> History of Present Illness HPI Narrative: 65 y/o male with history of HFrEF, Afib on Pradaxa, hx pancreatitis, seizures, HTN, & CVA with residual left sided hemiparesis who is wheelchair bound presents to the ED via EMS with c/o SOB & chest pain that started this morning. However he admits to not sleeping all night because he did not feel well. When he went to bed last night he had some upper abdominal pain, back pain and chest pain. He states the pain is located in his epigastric area and feels similar to when he had pancreatitis only this time it's worse. He has nausea but no vomiting. No fever or chills. He has pain in his entire back as well. His breathing is hard because of the pain. Deep breaths make the pain worse. He reports no change in his LLE edema and that it is chronic. He left foot is red and he cannot say when that started. On EMS arrival patient was given Nitro SL and an additional dose was given en route. He arrives c/o severe headache. <ISAAC Brown - Last Filed: 01/08/21 14:10> MD elicited complaint: shortness of breath and chest pain <ISAAC Brown Last Filed: 0 01/08/21 14:10> Pertinent past history: congestive heart failure <ISAAC Brown Last Filed: 01/08/21 14:10> Onset (ago): day(s) (1) <ISAAC Brown Last Filed: 01/08/21 14:10> Timing: constant <ISAAC Brown Last Filed: 01/08/21 14:10> Severity: moderate <ISAAC Brown Last Filed: 01/08/21 14:10> Exacerbating factors: movement and deep breaths <ISAAC Brown Last Filed: 01/08/21 14:10> Relieving factors: nothing <ISAAC Brown Last Filed: 01/08/21 14:10> Known history of: congestive heart failure <ISAAC Brown Last Filed: 01/08/21 14:10> Associated symptoms: chest pain, orthopnea, abdominal pain and lightheadedness <ISAAC Brown Last Filed: 01/08/21 14:10> Treatment prior to arrival: nitroglycerin <ISAAC Brown Last Filed: 01/08/21 14:10> Related Data Home oxygen amount: none <ISAAC Brown Last Filed: 01/08/21 14:10> Home Medications: Home Medications Medication Instructions Recorded Confirmed albuterol sulfate 1 amp INHALATION Q6H 01/08/21 01/08/21 albuterol sulfate [ProAir HFA] 2 puff INHALATION Q4-6H PRN 01/08/21 01/08/21 citalopram 1 tab PO DAILY 01/08/21 01/08/21 dabigatran etexilate [Pradaxa] 1 cap PO BID 01/08/21 01/08/21 furosemide 20 mg PO 01/08/21 hydroxyzine HCl 10 mg PO 01/08/21 levetiracetam 1 tab PO BID 01/08/21 01/08/21 lisinopril 1 tab PO DAILY 01/08/21 01/08/21 melatonin 2 tab PO BEDTIME 01/08/21 01/08/21 metoprolol succinate 1 tab PO QAM 01/08/21 01/08/21 oxcarbazepine 1 tab PO BID 01/08/21 01/08/21 pantoprazole 1 tab PO QAM 01/08/21 01/08/21 simvastatin 1 tab PO QPM 01/08/21 01/08/21 tizanidine 0.5 tab PO TID 01/08/21 01/08/21 <ISAAC Brown Last Filed: 01/08/21 14:10> Allergies/Adverse Reactions: Allergies Allergy/AdvReac Type Severity Reaction Status Date / Time No Known Allergies Allergy Verified 11/23/20 14:28 <ISAAC Brown Last Filed: 01/08/21 14:10> Review of Systems Review of Systems: Constitutional: No Fever, No Chills ENT/Mouth: No sore throat, No Rhinorrhea, No Swallowing Difficulty Eyes: No Eye Pain, No Swelling, No Redness Cardiovascular: + Chest Pain, + SOB, + Orthopnea, + Edema Respiratory: + Cough, No Sputum, No Wheezing, + dyspnea Gastrointestinal: + Nausea, No Vomiting, No Diarrhea, + abdominal Pain, No Hematochezia, No Melena Genitourinary: No Dysuria, No Urinary Frequency, No Hematuria Musculoskeletal: + joint pain, No Myalgias Skin: No Skin Lesions, No rash Neuro: No Weakness, No Numbness, No Dizziness, + Headache Psych: No Anxiety/Panic, No Depression Heme/Lymph: No Bruising, No Lymphadenopathy Endocrine: No Polyuria, No Polydipsia <ISAAC Brown - Last Filed: 01/08/21 14:10> [facility] Past Medical History Attestation statement: The following information was validated with the patient. <ISAAC Brown - Last Filed: 01/08/21 14:10> Medical History: Medical History Bradycardia Cardiomyopathy Chronic atrial fibrillation Chronic HFrEF (heart failure with reduced ejection fraction) CVA (cerebral vascular accident) HTN (hypertension) Obesity <ISAAC Brown - Last Filed: 01/08/21 14:10> Family History Family History: Family History Father Emphysema lung Mother Cardiovascular disease <ISAAC Brown - Last Filed: 01/08/21 14:10> Social History Social History: Social History Household Members: None Housing: Apartment Alcohol intake: never Smoking Status: Never smoker Second Hand Smoke Exposure: No Use of substances other than those prescribed or required for medical reasons: No Advance Directives: Yes Advance Directives on File: Yes Advance Directives Date on File: 11/23/20 service: No Current occupational status: disabled <ISAAC Brown - Last Filed: 01/08/21 14:10> Physical Exam Vital Signs: Vital Signs: Last Vital Signs Temp 98.0 F 01/08/21 11:02 Pulse 65 01/08/21 12:16 Resp 16 01/08/21 12:16 BP 142/74 H 01/08/21 12:16 Pulse Ox 100 01/08/21 12:16 Body Mass Index 42.7 Appearance: Alert. Oriented X3. No acute distress. Appears older than stated age. Eyes: Pupils equal, round and reactive to light. ENT: Pharynx normal. Dentition is poor, missing teeth Neck: Normal inspection. Neck supple. CVS: Irregularly irregular, Pulses normal. Respiratory: No respiratory distress. Breath sounds diminished at bilateral bases Abdomen: Softly distended w/ epigastric tenderness. +BS are present but decrea sed in all 4 quadrants. ABRAHAN: normal tone, no hemorrhoids appreciated, yellow/light brown stool on exam, Skin: Skin warm and dry. Normal skin color. Normal skin turgor. No rashes. Extremities: 2+ left lower extremity edema with erythematous, warm and slightly tender to top of foot and proximal toes 2-5, thickened yellow toenails on all digits of left foot. no edema of RLE. Neuro: Oriented X 3. Left sided hemiparesis, Normal strength on the right, stiff LE. <ISAAC Brown - Last Filed: 01/08/21 14:10> Vital Signs: Last Vital Signs Temp 98.0 F 01/08/21 11:02 Pulse 65 01/08/21 12:16 Resp 16 01/08/21 12:16 BP 142/74 H 01/08/21 12:16 Pulse Ox 100 01/08/21 12:16 Body Mass Index 42.7 <Aj Varner MD - Last Filed: 01/08/21 15:15> Course Course Course Narrative: 65 y/o male with multiple medical problems including CVA w/ residural hemiparesis, bedbound status, afib on Pradaxa, CHF, seizures presenting with multiple complaints including abdominal pain, chest pain, SOB and back pain since last night. s/p Nitro SL x2 now with headache. Hemodynamically stable and afebrile on arrival, in no respiratory distress w/ Spo2 93% on room air initially --> 100% once settled in. EKG without STEMI. Exam is concerning for possible recurrent pancreatitis w/ epigastric tenderness, CHF exacerbtion w/ LE edema & diminished BS. His left foot appears cellulitis. Not septic at this time. Will get full metabolic workup including cultures, lactic, lipase, CMP, CBC, troponin. Doubt LE DVT given he is on Pradaxa. Doubt dissection. Dispo p ending results and improvement. <ISAAC Brwon - Last Filed: 01/08/21 14:10> Reevaluation(s) Reevaluation #1: Labs showing acute on chronic anemia w/ H/H 9.5/29 from a baseline of 11.7/35.4 and new mild thrombocytopenia platelets 155K. He reports mild blood when he cleaned up after stooling as of late but his care providers did not seem very concerned about it. He denies melena or significant BRBPR. Will check guaic. No leukocytosis. Headache is resolving on its own. CXR w/ right sided patchy opacities, new from prior. Ddx includes asymmetric pulmonary edema/CHF, aspiration pneumonia, CAP, COVID. No cough or fever. Will cover for possible pneumonia <ISAAC Brown - Last Filed: 01/08/21 14:10> Reevaluation #2: Chemistry showing sodium 123 from a baseline of 130s. He is on lasix at home. BNP elevated 1300. Serum osm 263. Hyponatremia likely due to volume overload. Will d/w Nephrology. UA and Sandeep, UOsm pending. Spoke with Dr. Tanner - agrees with diuresis. Will see once admitted. 40 mg IV lasix ordered. <ISAAC Brown - Last Filed: 01/08/21 14:10> Reevaluation #3: CT scan is limited due to motion artifact and positioning. Redemonstrated right sided patchy opacities in the lung. procalcitonis is low. Received empiric abx to cover lung and cellulitis of left foot. Will admit for further management of his multiple medical issues. Dr. Varner TT for admission at 2:05 pm and will admit. <ISAAC Brown - Last Filed: 01/08/21 14:10> Additional Reevaluation(s): this note appears to be signed by myself due to a computer glitch, I was not the supervising physician - Aj Varner <Aj Varner MD - Last Filed: 01/08/21 15:15> Consultations Consultation #1: Nephrology - Dr. Pina. <ISAAC Brown - Last Filed: 01/08/21 14:10> MDM - SOB/Dyspnea Medical Records Attestation: I reviewed the patient's medical records. <ISAAC Brown - Last Filed: 01/08/21 14:10> Lab Data Attestation: I reviewed the patient's lab results. <ISAAC Brown - Last Filed: 01/08/21 14:10> Result diagrams: : 01/08/21 11:30 01/08/21 11:30 <ISAAC Brown - Last Filed: 01/08/21 14:10> Labs: Lab Results 01/08/21 01/08/21 01/08/21 Range/Units 11:30 11:30 11:30 WBC 9.0 (4.8-10.8) X10*3/uL RBC 3.55 L (4.60-5.80) X10*6/uL Hgb 9.5 L (14.0-18.0) g/dl Hct 29.0 L (42-52) % MCV 81.7 (80-98) fL MCH 26.8 L (27.0-33.0) pg MCHC 32.8 (31.0-36.0) g/dl RDW 16.4 H (11.0-16.0) % Plt Count 155 L (160-400) X10*3/uL MPV 9.4 (9.4-12.4) fL Immature Gran % (Auto) 0.2 (0.0-0.4) % Neut % (Auto) 87.6 H (45-73) % Lymph % (Auto) 4.9 L (20-40) % Caroline % (Auto) 7.1 (2-11) % Eos % (Auto) 0.0 (0-4) % Baso % (Auto) 0.2 (0-2) % Lymph # (Auto) 0.4 L (1.2-4.9) X10*3/uL Caroline # (Auto) 0.6 (0.1-1.2) X10*3/uL Eos # (Auto) 0.0 (0.0-0.4) X10*3/uL Baso # (Auto) 0.0 (0.0-0.2) X10*3/uL Abs Immat Gran (auto) 0.02 (0.00-0.03) X10*3/uL Absolute Neuts (auto) 7.9 (2.0-8.3) X10*3/uL Absolute Nucleated RBC 0.000 (0.0-0.012) X10*3/uL Nucleated RBC % (auto) 0.0 (0.0-0.2) /100WBC Smear Tech's Comments VERIFIED PT 20.8 H (10.8-13.0) SEC INR 1.7 H (0.9-1.1) APTT 49.6 H (24.1-38.0) SEC Hold Blue Top SEE NOTE Sodium 123 L (135-145) mmol/L Potassium 5.1 (3.3-5.1) mmol/L Chloride 87 L (96-108) mmol/L Carbon Dioxide 26 (22-29) mmol/L Anion Gap 15 (12-20) BUN 12 (9-16) mg/dL Creatinine 0.93 (0.5-1.4) mg/dL Estim Creat Clear Calc 99.2 Estimated GFR > 60 Random Glucose 145 H D (60-115) mg/dL Osmolality (281-305) mosm/kg Lactic Acid (0.5-2.0) mmol/L Calcium 8.6 (8.4-10.2) mg/dL Magnesium 1.8 (1.6-2.6) mg/dL Total Bilirubin 0.6 (0.0-1.0) mg/dL Direct Bilirubin 0.3 (0.0-0.5) mg/dL AST 18 (5-37) U/L ALT 18 (0-40) U/L Alkaline Phosphatase 70 (39-117) U/L Troponin I High Sens (<3.5-35.0) ng/L B-Natriuretic Peptide (<100) pg/mL Total Protein 6.5 (6.5-8.0) g/dL Albumin 4.1 (3.5-5.0) g/dL Lipase 10 (8-78) U/L Procalcitonin ng/mL Urine Color Urine Appearance Urine pH (5.0-8.0) Ur Specific Thurmond (1.005-1.025) Urine Protein (NEG-TRACE) MG/DL Urine Glucose (UA) (NEG) MG/DL Urine Ketones (NEG) MG/DL Urine Blood (NEG) Urine Nitrite (NEG) Ur Leukocyte Esterase (NEG) Urine RBC (0) /HPF Urine WBC (0-4) /HPF Ur Squamous Epith Cells /LPF Urine Bacteria /LPF Urine Osmolality (373-1093) mosm/kg Ur Random Sodium mmol/L Stool Occult Blood (NEGATIVE) Coronavirus (PCR) (Negative) Influenza Type A (PCR) (Negative) Influenza Type B (PCR) (Negative) RSV RNA Qual (PCR) (Negative) 01/08/21 01/08/21 01/08/21 Range/Units 11:30 11:30 11:30 WBC (4.8-10.8) X10*3/uL RBC (4.60-5.80) X10*6/uL Hgb (14.0-18.0) g/dl Hct (42-52) % MCV (80-98) fL MCH (27.0-33.0) pg MCHC (31.0-36.0) g/dl RDW (11.0-16.0) % Plt Count (160-400) X10*3/uL MPV (9.4-12.4) fL Immature Gran % (Auto) (0.0-0.4) % Neut % (Auto) (45-73) % Lymph % (Auto) (20-40) % Caroline % (Auto) (2-11) % Eos % (Auto) (0-4) % Baso % (Auto) (0-2) % Lymph # (Auto) (1.2-4.9) X10*3/uL Caroline # (Auto) (0.1-1.2) X10*3/uL Eos # (Auto) (0.0-0.4) X10*3/uL Baso # (Auto) (0.0-0.2) X10*3/uL Abs Immat Gran (auto) (0.00-0.03) X10*3/uL Absolute Neuts (auto) (2.0-8.3) X10*3/uL Absolute Nucleated RBC (0.0-0.012) X10*3/uL Nucleated RBC % (auto) (0.0-0.2) /100WBC Smear Tech's Comments PT (10.8-13.0) SEC INR (0.9-1.1) APTT (24.1-38.0) SEC Hold Blue Top Sodium (135-145) mmol/L Potassium (3.3-5.1) mmol/L Chloride (96-108) mmol/L Carbon Dioxide (22-29) mmol/L Anion Gap (12-20) BUN (9-16) mg/dL Creatinine (0.5-1.4) mg/dL Estim Creat Clear Calc Estimated GFR Random Glucose (60-115) mg/dL Osmolality (281-305) mosm/kg Lactic Acid 1.8 (0.5-2.0) mmol/L Calcium (8.4-10.2) mg/dL Magnesium (1.6-2.6) mg/dL Total Bilirubin (0.0-1.0) mg/dL Direct Bilirubin (0.0-0.5) mg/dL AST (5-37) U/L ALT (0-40) U/L Alkaline Phosphatase (39-117) U/L Troponin I High Sens 34.3 D (<3.5-35.0) ng/L B-Natriuretic Peptide 1302 H (<100) pg/mL Total Protein (6.5-8.0) g/dL Albumin (3.5-5.0) g/dL Lipase (8-78) U/L Procalcitonin 0.02 ng/mL Urine Color Urine Appearance Urine pH (5.0-8.0) Ur Specific Thur[place] (1.005-1.025) Urine Protein (NEG-TRACE) MG/DL Urine Glucose (UA) (NEG) MG/DL Urine Ketones (NEG) MG/DL Urine Blood (NEG) Urine Nitrite (NEG) Ur Leukocyte Esterase (NEG) Urine RBC (0) /HPF Urine WBC (0-4) /HPF Ur Squamous Epith Cells /LPF Urine Bacteria /LPF Urine Osmolality (373-1093) mosm/kg Ur Random Sodium mmol/L Stool Occult Blood (NEGATIVE) Coronavirus (PCR) (Negative) Influenza Type A (PCR) (Negative) Influenza Type B (PCR) (Negative) RSV RNA Qual (PCR) (Negative) 01/08/21 01/08/21 01/08/21 Range/Units 11:30 12:53 12:53 WBC (4.8-10.8) X10*3/uL RBC (4.60-5.80) X10*6/uL Hgb (14.0-18.0) g/dl Hct (42-52) % MCV (80-98) fL MCH (27.0-33.0) pg MCHC (31.0-36.0) g/dl RDW (11.0-16.0) % Plt Count (160-400) X10*3/uL MPV (9.4-12.4) fL Immature Gran % (Auto) (0.0-0.4) % Neut % (Auto) (45-73) % Lymph % (Auto) (20-40) % Caroline % (Auto) (2-11) % Eos % (Auto) (0-4) % Baso % (Auto) (0-2) % Lymph # (Auto) (1.2-4.9) X10*3/uL Caroline # (Auto) (0.1-1.2) X10*3/uL Eos # (Auto) (0.0-0.4) X10*3/uL Baso # (Auto) (0.0-0.2) X10*3/uL Abs Immat Gran (auto) (0.00-0.03) X10*3/uL Absolute Neuts (auto) (2.0-8.3) X10*3/uL Absolute Nucleated RBC (0.0-0.012) X10*3/uL Nucleated RBC % (auto) (0.0-0.2) /100WBC Smear Tech's Comments PT (10.8-13.0) SEC INR (0.9-1.1) APTT (24.1-38.0) SEC Hold Blue Top Sodium (135-145) mmol/L Potassium (3.3-5.1) mmol/L Chloride (96-108) mmol/L Carbon Dioxide (22-29) mmol/L Anion Gap (12-20) BUN (9-16) mg/dL Creatinine (0.5-1.4) mg/dL Estim Creat Clear Calc Estimated GFR Random Glucose (60-115) mg/dL Osmolality 263 L (281-305) mosm/kg Lactic Acid (0.5-2.0) mmol/L Calcium (8.4-10.2) mg/dL Magnesium (1.6-2.6) mg/dL Total Bilirubin (0.0-1.0) mg/dL Direct Bilirubin (0.0-0.5) mg/dL AST (5-37) U/L ALT (0-40) U/L Alkaline Phosphatase (39-117) U/L Troponin I High Sens (<3.5-35.0) ng/L B-Natriuretic Peptide (<100) pg/mL Total Protein (6.5-8.0) g/dL Albumin (3.5-5.0) g/dL Lipase (8-78) U/L Procalcitonin ng/mL Urine Color Urine Appearance Urine pH (5.0-8.0) Ur Specific Thur[place] (1.005-1.025) Urine Protein (NEG-TRACE) MG/DL Urine Glucose (UA) (NEG) MG/DL Urine Ketones (NEG) MG/DL Urine Blood (NEG) Urine Nitrite (NEG) Ur Leukocyte Esterase (NEG) Urine RBC (0) /HPF Urine WBC (0-4) /HPF Ur Squamous Epith Cells /LPF Urine Bacteria /LPF Urine Osmolality 258 L (373-1093) mosm/kg Ur Random Sodium mmol/L Stool Occult Blood (NEGATIVE) Coronavirus (PCR) NEGATIVE (Negative) Influenza Type A (PCR) NEGATIVE (Negative) Influenza Type B (PCR) NEGATIVE (Negative) RSV RNA Qual (PCR) NEGATIVE (Negative) 01/08/21 01/08/21 01/08/21 Range/Units 12:53 12:53 12:53 WBC (4.8-10.8) X10*3/uL RBC (4.60-5.80) X10*6/uL Hgb (14.0-18.0) g/dl Hct (42-52) % MCV (80-98) fL MCH (27.0-33.0) pg MCHC (31.0-36.0) g/dl RDW (11.0-16.0) % Plt Count (160-400) X10*3/uL MPV (9.4-12.4) fL Immature Gran % (Auto) (0.0-0.4) % Neut % (Auto) (45-73) % Lymph % (Auto) (20-40) % Caroline % (Auto) (2-11) % Eos % (Auto) (0-4) % Baso % (Auto) (0-2) % Lymph # (Auto) (1.2-4.9) X10*3/uL Caroline # (Auto) (0.1-1.2) X10*3/uL Eos # (Auto) (0.0-0.4) X10*3/uL Baso # (Auto) (0.0-0.2) X10*3/uL Abs Immat Gran (auto) (0.00-0.03) X10*3/uL Absolute Neuts (auto) (2.0-8.3) X10*3/uL Absolute Nucleated RBC (0.0-0.012) X10*3/uL Nucleated RBC % (auto) (0.0-0.2) /100WBC Smear Tech's Comments PT (10.8-13.0) SEC INR (0.9-1.1) APTT (24.1-38.0) SEC Hold Blue Top Sodium (135-145) mmol/L Potassium (3.3-5.1) mmol/L Chloride (96-108) mmol/L Carbon Dioxide (22-29) mmol/L Anion Gap (12-20) BUN (9-16) mg/dL Creatinine (0.5-1.4) mg/dL Estim Creat Clear Calc Estimated GFR Random Glucose (60-115) mg/dL Osmolality (281-305) mosm/kg Lactic Acid (0.5-2.0) mmol/L Calcium (8.4-10.2) mg/dL Magnesium (1.6-2.6) mg/dL Total Bilirubin (0.0-1.0) mg/dL Direct Bilirubin (0.0-0.5) mg/dL AST (5-37) U/L ALT (0-40) U/L Alkaline Phosphatase (39-117) U/L Troponin I High Sens (<3.5-35.0) ng/L B-Natriuretic Peptide (<100) pg/mL Total Protein (6.5-8.0) g/dL Albumin (3.5-5.0) g/dL Lipase (8-78) U/L Procalcitonin ng/mL Urine Color YELLOW Urine Appearance CLEAR Urine pH 6.0 (5.0-8.0) Ur Specific [place] 1.010 (1.005-1.025) Urine Protein NEG (NEG-TRACE) MG/DL Urine Glucose (UA) NEG (NEG) MG/DL Urine Ketones NEG (NEG) MG/DL Urine Blood TRACE (NEG) Urine Nitrite NEG (NEG) Ur Leukocyte Esterase NEG (NEG) Urine RBC 0-2 (0) /HPF Urine WBC 0 (0-4) /HPF Ur Squamous Epith Cells TRACE /LPF Urine Bacteria NONE /LPF Urine Osmolality (373-1093) mosm/kg Ur Random Sodium 37.0 mmol/L Stool Occult Blood NEGATIVE (NEGATIVE) Coronavirus (PCR) (Negative) Influenza Type A (PCR) (Negative) Influenza Type B (PCR) (Negative) RSV RNA Qual (PCR) (Negative) <ISAAC Brown - Last Filed: 01/08/21 14:10> Lab Results 01/08/21 01/08/21 01/08/21 Range/Units 11:30 11:30 11:30 WBC 9.0 (4.8-10.8) X10*3/uL RBC 3.55 L (4.60-5.80) X10*6/uL Hgb 9.5 L (14.0-18.0) g/dl Hct 29.0 L (42-52) % MCV 81.7 (80-98) fL MCH 26.8 L (27.0-33.0) pg MCHC 32.8 (31.0-36.0) g/dl RDW 16.4 H (11.0-16.0) % Plt Count 155 L (160-400) X10*3/uL MPV 9.4 (9.4-12.4) fL Immature Gran % (Auto) 0.2 (0.0-0.4) % Neut % (Auto) 87.6 H (45-73) % Lymph % (Auto) 4.9 L (20-40) % Caroline % (Auto) 7.1 (2-11) % Eos % (Auto) 0.0 (0-4) % Baso % (Auto) 0.2 (0-2) % Lymph # (Auto) 0.4 L (1.2-4.9) X10*3/uL Caroline # (Auto) 0.6 (0.1-1.2) X10*3/uL Eos # (Auto) 0.0 (0.0-0.4) X10*3/uL Baso # (Auto) 0.0 (0.0-0.2) X10*3/uL Abs Immat Gran (auto) 0.02 (0.00-0.03) X10*3/uL Absolute Neuts (auto) 7.9 (2.0-8.3) X10*3/uL Absolute Nucleated RBC 0.000 (0.0-0.012) X10*3/uL Nucleated RBC % (auto) 0.0 (0.0-0.2) /100WBC Smear Tech's Comments VERIFIED PT 20.8 H (10.8-13.0) SEC INR 1.7 H (0.9-1.1) APTT 49.6 H (24.1-38.0) SEC Hold Blue Top SEE NOTE Sodium 123 L (135-145) mmol/L Potassium 5.1 (3.3-5.1) mmol/L Chloride 87 L (96-108) mmol/L Carbon Dioxide 26 (22-29) mmol/L Anion Gap 15 (12-20) BUN 12 (9-16) mg/dL Creatinine 0.93 (0.5-1.4) mg/dL Estim Creat Clear Calc 99.2 Estimated GFR > 60 Random Glucose 145 H D (60-115) mg/dL Osmolality (281-305) mosm/kg Lactic Acid (0.5-2.0) mmol/L Calcium 8.6 (8.4-10.2) mg/dL Magnesium 1.8 (1.6-2.6) mg/dL Total Bilirubin 0.6 (0.0-1.0) mg/dL Direct Bilirubin 0.3 (0.0-0.5) mg/dL AST 18 (5-37) U/L ALT 18 (0-40) U/L Alkaline Phosphatase 70 (39-117) U/L Troponin I High Sens (<3.5-35.0) ng/L B-Natriuretic Peptide (<100) pg/mL Total Protein 6.5 (6.5-8.0) g/dL Albumin 4.1 (3.5-5.0) g/dL Lipase 10 (8-78) U/L Procalcitonin ng/mL Urine Color Urine Appearance Urine pH (5.0-8.0) Ur Specific [place] (1.005-1.025) Urine Protein (NEG-TRACE) MG/DL Urine Glucose (UA) (NEG) MG/DL Urine Ketones (NEG) MG/DL Urine Blood (NEG) Urine Nitrite (NEG) Ur Leukocyte Esterase (NEG) Urine RBC (0) /HPF Urine WBC (0-4) /HPF Ur Squamous Epith Cells /LPF Urine Bacteria /LPF Urine Osmolality (373-1093) mosm/kg Ur Random Sodium mmol/L Stool Occult Blood (NEGATIVE) Coronavirus (PCR) (Negative) Influenza Type A (PCR) (Negative) Influenza Type B (PCR) (Negative) RSV RNA Qual (PCR) (Negative) 01/08/21 01/08/21 01/08/21 Range/Units 11:30 11:30 11:30 WBC (4.8-10.8) X10*3/uL RBC (4.60-5.80) X10*6/uL Hgb (14.0-18.0) g/dl Hct (42-52) % MCV (80-98) fL MCH (27.0-33.0) pg MCHC (31.0-36.0) g/dl RDW (11.0-16.0) % Plt Count (160-400) X10*3/uL MPV (9.4-12.4) fL Immature Gran % (Auto) (0.0-0.4) % Neut % (Auto) (45-73) % Lymph % (Auto) (20-40) % Caroline % (Auto) (2-11) % Eos % (Auto) (0-4) % Baso % (Auto) (0-2) % Lymph # (Auto) (1.2-4.9) X10*3/uL Caroline # (Auto) (0.1-1.2) X10*3/uL Eos # (Auto) (0.0-0.4) X10*3/uL Baso # (Auto) (0.0-0.2) X10*3/uL Abs Immat Gran (auto) (0.00-0.03) X10*3/uL Absolute Neuts (auto) (2.0-8.3) X10*3/uL Absolute Nucleated RBC (0.0-0.012) X10*3/uL Nucleated RBC % (auto) (0.0-0.2) /100WBC Smear Tech's Comments PT (10.8-13.0) SEC INR (0.9-1.1) APTT (24.1-38.0) SEC Hold Blue Top Sodium (135-145) mmol/L Potassium (3.3-5.1) mmol/L Chloride (96-108) mmol/L Carbon Dioxide (22-29) mmol/L Anion Gap (12-20) BUN (9-16) mg/dL Creatinine (0.5-1.4) mg/dL Estim Creat Clear Calc Estimated GFR Random Glucose (60-115) mg/dL Osmolality (281-305) mosm/kg Lactic Acid 1.8 (0.5-2.0) mmol/L Calcium (8.4-10.2) mg/dL Magnesium (1.6-2.6) mg/dL Total Bilirubin (0.0-1.0) mg/dL Direct Bilirubin (0.0-0.5) mg/dL AST (5-37) U/L ALT (0-40) U/L Alkaline Phosphatase (39-117) U/L Troponin I High Sens 34.3 D (<3.5-35.0) ng/L B-Natriuretic Peptide 1302 H (<100) pg/mL Total Protein (6.5-8.0) g/dL Albumin (3.5-5.0) g/dL Lipase (8-78) U/L Procalcitonin 0.02 ng/mL Urine Color Urine Appearance Urine pH (5.0-8.0) Ur Specific Thur[place] (1.005-1.025) Urine Protein (NEG-TRACE) MG/DL Urine Glucose (UA) (NEG) MG/DL Urine Ketones (NEG) MG/DL Urine Blood (NEG) Urine Nitrite (NEG) Ur Leukocyte Esterase (NEG) Urine RBC (0) /HPF Urine WBC (0-4) /HPF Ur Squamous Epith Cells /LPF Urine Bacteria /LPF Urine Osmolality (373-1093) mosm/kg Ur Random Sodium mmol/L Stool Occult Blood (NEGATIVE) Coronavirus (PCR) (Negative) Influenza Type A (PCR) (Negative) Influenza Type B (PCR) (Negative) RSV RNA Qual (PCR) (Negative) 01/08/21 01/08/21 01/08/21 Range/Units 11:30 12:53 12:53 WBC (4.8-10.8) X10*3/uL RBC (4.60-5.80) X10*6/uL Hgb (14.0-18.0) g/dl Hct (42-52) % MCV (80-98) fL MCH (27.0-33.0) pg MCHC (31.0-36.0) g/dl RDW (11.0-16.0) % Plt Count (160-400) X10*3/uL MPV (9.4-12.4) fL Immature Gran % (Auto) (0.0-0.4) % Neut % (Auto) (45-73) % Lymph % (Auto) (20-40) % Caroline % (Auto) (2-11) % Eos % (Auto) (0-4) % Baso % (Auto) (0-2) % Lymph # (Auto) (1.2-4.9) X10*3/uL Caroline # (Auto) (0.1-1.2) X10*3/uL Eos # (Auto) (0.0-0.4) X10*3/uL Baso # (Auto) (0.0-0.2) X10*3/uL Abs Immat Gran (auto) (0.00-0.03) X10*3/uL Absolute Neuts (auto) (2.0-8.3) X10*3/uL Absolute Nucleated RBC (0.0-0.012) X10*3/uL Nucleated RBC % (auto) (0.0-0.2) /100WBC Smear Tech's Comments PT (10.8-13.0) SEC INR (0.9-1.1) APTT (24.1-38.0) SEC Hold Blue Top Sodium (135-145) mmol/L Potassium (3.3-5.1) mmol/L Chloride (96-108) mmol/L Carbon Dioxide (22-29) mmol/L Anion Gap (12-20) BUN (9-16) mg/dL Creatinine (0.5-1.4) mg/dL Estim Creat Clear Calc Estimated GFR Random Glucose (60-115) mg/dL Osmolality 263 L (281-305) mosm/kg Lactic Acid (0.5-2.0) mmol/L Calcium (8.4-10.2) mg/dL Magnesium (1.6-2.6) mg/dL Total Bilirubin (0.0-1.0) mg/dL Direct Bilirubin (0.0-0.5) mg/dL AST (5-37) U/L ALT (0-40) U/L Alkaline Phosphatase (39-117) U/L Troponin I High Sens (<3.5-35.0) ng/L B-Natriuretic Peptide (<100) pg/mL Total Protein (6.5-8.0) g/dL Albumin (3.5-5.0) g/dL Lipase (8-78) U/L Procalcitonin ng/mL Urine Color Urine Appearance Urine pH (5.0-8.0) Ur Specific [place] (1.005-1.025) Urine Protein (NEG-TRACE) MG/DL Urine Glucose (UA) (NEG) MG/DL Urine Ketones (NEG) MG/DL Urine Blood (NEG) Urine Nitrite (NEG) Ur Leukocyte Esterase (NEG) Urine RBC (0) /HPF Urine WBC (0-4) /HPF Ur Squamous Epith Cells /LPF Urine Bacteria /LPF Urine Osmolality 258 L (373-1093) mosm/kg Ur Random Sodium mmol/L Stool Occult Blood (NEGATIVE) Coronavirus (PCR) NEGATIVE (Negative) Influenza Type A (PCR) NEGATIVE (Negative) Influenza Type B (PCR) NEGATIVE (Negative) RSV RNA Qual (PCR) NEGATIVE (Negative) 01/08/21 01/08/21 01/08/21 Range/Units 12:53 12:53 12:53 WBC (4.8-10.8) X10*3/uL RBC (4.60-5.80) X10*6/uL Hgb (14.0-18.0) g/dl Hct (42-52) % MCV (80-98) fL MCH (27.0-33.0) pg MCHC (31.0-36.0) g/dl RDW (11.0-16.0) % Plt Count (160-400) X10*3/uL MPV (9.4-12.4) fL Immature Gran % (Auto) (0.0-0.4) % Neut % (Auto) (45-73) % Lymph % (Auto) (20-40) % Caroline % (Auto) (2-11) % Eos % (Auto) (0-4) % Baso % (Auto) (0-2) % Lymph # (Auto) (1.2-4.9) X10*3/uL Caroline # (Auto) (0.1-1.2) X10*3/uL Eos # (Auto) (0.0-0.4) X10*3/uL Baso # (Auto) (0.0-0.2) X10*3/uL Abs Immat Gran (auto) (0.00-0.03) X10*3/uL Absolute Neuts (auto) (2.0-8.3) X10*3/uL Absolute Nucleated RBC (0.0-0.012) X10*3/uL Nucleated RBC % (auto) (0.0-0.2) /100WBC Smear Tech's Comments PT (10.8-13.0) SEC INR (0.9-1.1) APTT (24.1-38.0) SEC Hold Blue Top Sodium (135-145) mmol/L Potassium (3.3-5.1) mmol/L Chloride (96-108) mmol/L Carbon Dioxide (22-29) mmol/L Anion Gap (12-20) BUN (9-16) mg/dL Creatinine (0.5-1.4) mg/dL Estim Creat Clear Calc Estimated GFR Random Glucose (60-115) mg/dL Osmolality (281-305) mosm/kg Lactic Acid (0.5-2.0) mmol/L Calcium (8.4-10.2) mg/dL Magnesium (1.6-2.6) mg/dL Total Bilirubin (0.0-1.0) mg/dL Direct Bilirubin (0.0-0.5) mg/dL AST (5-37) U/L ALT (0-40) U/L Alkaline Phosphatase (39-117) U/L Troponin I High Sens (<3.5-35.0) ng/L B-Natriuretic Peptide (<100) pg/mL Total Protein (6.5-8.0) g/dL Albumin (3.5-5.0) g/dL Lipase (8-78) U/L Procalcitonin ng/mL Urine Color YELLOW Urine Appearance CLEAR Urine pH 6.0 (5.0-8.0) Ur Specific [place] 1.010 (1.005-1.025) Urine Protein NEG (NEG-TRACE) MG/DL Urine Glucose (UA) NEG (NEG) MG/DL Urine Ketones NEG (NEG) MG/DL Urine Blood TRACE (NEG) Urine Nitrite NEG (NEG) Ur Leukocyte Esterase NEG (NEG) Urine RBC 0-2 (0) /HPF Urine WBC 0 (0-4) /HPF Ur Squamous Epith Cells TRACE /LPF Urine Bacteria NONE /LPF Urine Osmolality (373-1093) mosm/kg Ur Random Sodium 37.0 mmol/L Stool Occult Blood NEGATIVE (NEGATIVE) Coronavirus (PCR) (Negative) Influenza Type A (PCR) (Negative) Influenza Type B (PCR) (Negative) RSV RNA Qual (PCR) (Negative) <Aj Varner MD - Last Filed: 01/08/21 15:15> ECG Data Attestation: I personally reviewed and interpreted this ECG as follows: <ISAAC Brown - Last Filed: 01/08/21 14:10> ECG interpretation date: 01/08/21 <ISAAC Brown - Last Filed: 01/08/21 14:10> ECG interpretation time: 11:05 <ISAAC Brown - Last Filed: 01/08/21 14:10> Prior ECG tracings: available for review <ISAAC Brown - Last Filed: 01/08/21 14:10> Interpretation: atrial fibrillation, HR 82 bpm, no ST segment elevations or depressions. No significant changes from prior October 2020 <ISAAC Brown - Last Filed: 01/08/21 14:10> Critical Care Time Critical Care Time Critical Care Time: Yes <ISAAC Brown - Last Filed: 01/08/21 14:10> Total Critical Care Time: 45 <ISAAC Brown - Last Filed: 01/08/21 14:10> Attestation: I attest to critical care time spent caring for this patient. <ISAAC Brown - Last Filed: 01/08/21 14:10> Discharge Plan Discharge Clinical Impression: Hyponatremia, Acute on chronic anemia, Cellulitis of foot, left Acute exacerbation of CHF (congestive heart failure) Qualifiers: Heart failure type: systolic Qualified Code(s): I50.23 - Acute on chronic systolic (congestive) heart failure <ISAAC Brown - Last Filed: 01/08/21 14:10> Patient Disposition: Admitted As Inpatient <ISAAC Brown - Last Filed: 01/08/21 14:10>
--- NOTE | 2021-01-08 11:00 | ECG_ITS ---
Test Reason : CP Blood Pressure : / mmHG Vent. Rate : 082 BPM Atrial Rate : 076 BPM P-R Int : 000 ms QRS Dur : 094 ms QT Int : 364 ms P-R-T Axes : 000 038 042 degrees QTc Int : 425 ms Atrial fibrillation Low voltage QRS Cannot rule out Anterior infarct (cited on or before 11-JUN-2011) Abnormal ECG When compared with ECG of 23-NOV-2020 15:21, Nonspecific T wave abnormality no longer evident in Lateral leads Referred By: Kallie Contreras Electronically Signed By:Presley Shell
[2021-01-08 11:39] LABS: Basophils Percent Auto 0.2 % (0-2); Hemoglobin 9.5 g/dl (14.0-18.0); Imm Gran Abs Auto 0.02 X10*3/uL (0.00-0.03); Imm Gran Pct Auto 0.2 % (0.0-0.4); Lymphocytes Absolute Auto 0.4 X10*3/uL (1.2-4.9); Lymphocytes Percent Auto 4.9 % (20-40); MANUAL DIFF FLAG SCAN; Mean Corpuscular HGB Conc 32.8 g/dl (31.0-36.0); Mean Corpuscular Hemoglobin 26.8 pg (27.0-33.0); Mean Corpuscular Volume 81.7 fL (80-98); Mean Platelet Volume 9.4 fL (9.4-12.4); Monocytes Absolute Auto 0.6 X10*3/uL (0.1-1.2); Monocytes Percent Auto 7.1 % (2-11); Neutrophils Absolute Auto 7.9 X10*3/uL (2.0-8.3); Neutrophils Percent Auto 87.6 % (45-73); Platelet Count 155 X10*3/uL (160-400); Red Blood Count 3.55 X10*6/uL (4.60-5.80); Red Cell Distribution Width 16.4 % (11.0-16.0); SCAN SMEAR FLAG 1
[2021-01-08 11:47] LABS: INTERNATIONAL NORM RATIO 1.7 (0.9-1.1); Prothrombin Time 20.8 SEC (10.8-13.0)
[2021-01-08 11:56] LABS: Partial Thromboplastin Time 49.6 SEC (24.1-38.0)
[2021-01-08 12:00] LABS: Lactic Acid 1.8 mmol/L (0.5-2.0); SLIDE REVIEW VERIFIED
[2021-01-08 12:11] LABS: B Type Natriuretic Peptide 1302 pg/mL (<100); Troponin-I High Sensitivity 34.3 ng/L (<3.5-35.0)
[2021-01-08 12:24] LABS: Alanine Aminotransferase 18 U/L (0-40); Albumin Level 4.1 g/dL (3.5-5.0); Alkaline Phosphatase 70 U/L (39-117); Aspartate Amino Transferase 18 U/L (5-37); Bilirubin Direct 0.3 mg/dL (0.0-0.5); Bilirubin Total 0.6 mg/dL (0.0-1.0); Blood Urea Nitrogen 12 mg/dL (9-16); Calcium 8.6 mg/dL (8.4-10.2); Creatinine Clr Calc Pharmacy 99.2; Estimated Glomerular Filt Rate > 60; Glucose Random 145 mg/dL (60-115); Lipase 10 U/L (8-78); Magnesium 1.8 mg/dL (1.6-2.6); Total Protein 6.5 g/dL (6.5-8.0)
[2021-01-08 12:27] LABS: Procalcitonin 0.02 ng/mL
[2021-01-08 12:33] LABS: Anion Gap 15 (12-20); Carbon Dioxide 26 mmol/L (22-29); Chloride 87 mmol/L (96-108); Potassium 5.1 mmol/L (3.3-5.1); Sodium 123 mmol/L (135-145)
[2021-01-08 12:48] LABS: Osmolality, Serum 263 mosm/kg (281-305)
[2021-01-08] MEDS: cefTRIAXone sodium 1 GM in 0.9 % Sodium Chloride 50 ML IV (12:49)
--- NOTE | 2021-01-08 12:57 | PC.NURSE ---
hold lasix per pa
[2021-01-08 13:07] LABS: Glucose Urine UA NEG (NEG); Leukocyte Esterase Urine NEG (NEG); Nitrite Urine NEG (NEG); Urine Blood TRACE (NEG); Urine Ketones NEG (NEG); Urine Protein NEG (NEG-TRACE)
[2021-01-08 13:09] LABS: OBS Int Ctl Valid YES; OBS1 NEGATIVE (NEGATIVE)
[2021-01-08 13:12] LABS: Appearance Urine CLEAR; Color Urine YELLOW
[2021-01-08 13:18] LABS: RBC Urine 0-2 /HPF (0); Squamous Epithelial Cell Urine TRACE /LPF; WBC Urine 0 /HPF (0-4)
[2021-01-08 13:23] LABS: Osmolality Urine 258 mosm/kg (373-1093)
[2021-01-08] MEDS: Azithromycin 500 MG in 0.9 % Sodium Chloride 250 ML 125 MG IV (13:31)
[2021-01-08] MEDS: Furosemide 40 MG/4 ML VIAL IVPUSH (13:31)
[2021-01-08 13:56] LABS: Influenza A PCR NEGATIVE (Negative); Influenza B PCR NEGATIVE (Negative); Resp Syncy Virus RNA Qual PCR NEGATIVE (Negative); SARS COV2 PCR INHOUSE NEGATIVE (Negative)
--- NOTE | 2021-01-08 14:18 | P.HPHOSP_ITS ---
History of Present Illness Date of Service: 01/08/21 <Carmen Guy NP - Last Filed: 01/08/21 16:31> Chief Complaint: Shortness of breath <Carmen Guy NP - Last Filed: 01/08/21 16:31> 65 year old occitan speaking man presented to the ER by EMS. According to the patient's PRODUCT REPRESENTATIVE, the patient has been getting worse with headache, chest pain complaints more recently but today his PRODUCT REPRESENTATIVE noticed that his face looked swollen and he was having trouble breathing. His PRODUCT REPRESENTATIVE gotten dressed and checked his blood pressure and noted to be elevated at 207/138. PRODUCT REPRESENTATIVE called EMS. His PRODUCT REPRESENTATIVE also noticed that his left leg more swollen recently. Apparently the patient takes Lasix at home and his PC noticed that he had not had Lasix in his medication box for approximately 1 week. Patient was able to give some infor mation but was mildly vague. Patient denied any chest pain did report some mild shortness of breath, left leg pain and swelling. Chest CT showed some multi lobar patchy airspace disease, patient had no fever, leukocytosis or cough. In the ER vital signs stable, sodium 123, BNP 1302, procalcitonin 0.02. In the he was given azithromycin, Rocephin, IV Lasix, vancomycin. He will be admitted for further management and treatment of acute congestive heart failure. <Carmen Guy NP - Last Filed: 01/08/21 16:31> Review of Systems Review of Systems: Denies any recent fever chills or decrease in appetite respiratory shortness of breath with no sputum production cardiovascular denies chest pain, reports lower extremity edema which is chronic, left worse than right gastrointestinal denies any dysphagia abdominal pain nausea vomiting or diarrhea genitourinary denies any dysuria frequency or hematuria musculoskeletal denies any joint pain or swelling neuropsych chronic hand contractures all other systems reviewed are negative <Carmen Guy NP - Last Filed: 01/08/21 16:31> [facility] Medical History: Medical History Bradycardia Cardiomyopathy Chronic atrial fibrillation Chronic HFrEF (heart failure with reduced ejection fraction) CVA (cerebral vascular accident) HTN (hypertension) Obesity <Carmen Guy NP - Last Filed: 01/08/21 16:31> Family History: Family History Father Emphysema lung Mother Cardiovascular disease <Carmen Guy NP - Last Filed: 01/08/21 16:31> Social History: Social History Household Members: Caregiver Housing: House Do you presently have visiting nurse or other home services: Yes (PRODUCT REPRESENTATIVE) Unable to assess alcohol history related to: Unknown Alcohol intake: never Smoking Status: Never smoker Second Hand Smoke Exposure: No Advance Directives Date on File: 11/23/20 service: No Current occupational status: disabled <Carmen Guy NP - Last Filed: 01/08/21 16:31> Meds Allergies/Adverse reactions: Allergies Allergy/AdvReac Type Severity Reaction Status Date / Time No Known Allergies Allergy Verified 11/23/20 14:28 <Carmen Guy NP - Last Filed: 01/08/21 16:31> Active Medications: Current Medications Generic Name Dose Route Start Last Admin Trade Name Freq PRN Reason Stop Dose Admin Azithromycin 500 mg/ Sodium 250 mls @ 125 mls/hr 01/08/21 12:36 01/08/21 13:31 Chloride IV 01/08/21 14:35 125 mls/hr ONCE ONE Administration Pharmacy Consult 1 each 01/08/21 12:46 Consult Rx Vancomycin Dosing MISCELLANE DAILY PRN Consult order <Carmen Guy NP - Last Filed: 01/08/21 16:31> Home medications: Home Medications Medication Instructions Recorded Confirmed Last Taken Type Pradaxa 1 cap PO BID 01/08/21 01/08/21 Unknown History albuterol sulfate 1 amp INHALATION Q6H 01/08/21 01/08/21 Unknown History albuterol sulfate [ProAir HFA] 2 puff INHALATION Q4-6H PRN 01/08/21 01/08/21 Unknown History citalopram 1 tab PO DAILY 01/08/21 01/08/21 Unknown History hydroxyzine HCl 10 mg PO 01/08/21 Unknown History levetiracetam 1 tab PO BID 01/08/21 01/08/21 Unknown History melatonin 2 tab PO BEDTIME 01/08/21 01/08/21 Unknown History metoprolol succinate 1 tab PO QAM 01/08/21 01/08/21 Unknown History oxcarbazepine 1 tab PO BID 01/08/21 01/08/21 Unknown History pantoprazole 1 tab PO QAM 01/08/21 01/08/21 Unknown History simvastatin 1 tab PO QPM 01/08/21 01/08/21 Unknown History tizanidine 0.5 tab PO TID 01/08/21 01/08/21 Unknown History <Carmen Guy NP - Last Filed: 01/08/21 16:31> Physical Exam Vital Signs and Narrative: Vital Signs: Last Vital Signs Temp 98.0 F 01/08/21 11:02 Pulse 65 01/08/21 12:16 Resp 16 01/08/21 12:16 BP 142/74 H 01/08/21 12:16 Pulse Ox 100 01/08/21 12:16 Body Mass Index 42.7 <Carmen Guy NP - Last Filed: 01/08/21 16:31> Appearing in no acute distress head is normocephalic atraumatic eyes pupils are PERRLA sclera is anicteric mouth throat mucous membranes are intact and moist neck is supple no lymphadenopathy, no JVD noted lung sounds are clear to auscultation heart regular rate rhythm, clear S1, S2 positive bowel sounds, abdomen is soft, nontender neuro patient is alert, 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 <Carmen Guy NP - Last Filed: 01/08/21 16:31> Results Labs CBC and Chem 7: : 01/09/21 04:10 01/11/21 04:25 <Carmen Guy NP - Last Filed: 01/08/21 16:31> Labs: Laboratory Results - last 24 hr 01/08/21 01/08/21 01/08/21 11:30 11:30 11:30 MCV 81.7 MCH 26.8 L MCHC 32.8 RDW 16.4 H Plt Count 155 L MPV 9.4 Immature Gran % (Auto) 0.2 Neut % (Auto) 87.6 H Lymph % (Auto) 4.9 L Schleicher % (Auto) 7.1 Eos % (Auto) 0.0 Baso % (Auto) 0.2 Lymph # (Auto) 0.4 L Schleicher # (Auto) 0.6 Eos # (Auto) 0.0 Baso # (Auto) 0.0 Abs Immat Gran (auto) 0.02 Absolute Neuts (auto) 7.9 Absolute Nucleated RBC 0.000 Nucleated RBC % (auto) 0.0 Smear Tech's Comments VERIFIED PT 20.8 H INR 1.7 H APTT 49.6 H Hold Blue Top SEE NOTE Anion Gap 15 Estim Creat Clear Calc 99.2 Estimated GFR > 60 Random Glucose 145 H D Osmolality Lactic Acid Calcium 8.6 Magnesium 1.8 Total Bilirubin 0.6 Direct Bilirubin 0.3 AST 18 ALT 18 Alkaline Phosphatase 70 Troponin I High Sens B-Natriuretic Peptide Total Protein 6.5 Albumin 4.1 Lipase 10 Procalcitonin Urine Color Urine Appearance Urine pH Ur Specific [place] Urine Protein Urine Glucose (UA) Urine Ketones Urine Blood Urine Nitrite Ur Leukocyte Esterase Urine RBC Urine WBC Ur Squamous Epith Cells Urine Bacteria Urine Osmolality Ur Random Sodium Stool Occult Blood Coronavirus (PCR) Influenza Type A (PCR) Influenza Type B (PCR) RSV RNA Qual (PCR) 01/08/21 01/08/21 01/08/21 11:30 11:30 11:30 MCV MCH MCHC RDW Plt Count MPV Immature Gran % (Auto) Neut % (Auto) Lymph % (Auto) Schleicher % (Auto) Eos % (Auto) Baso % (Auto) Lymph # (Auto) Schleicher # (Auto) Eos # (Auto) Baso # (Auto) Abs Immat Gran (auto) Absolute Neuts (auto) Absolute Nucleated RBC Nucleated RBC % (auto) Smear Tech's Comments PT INR APTT Hold Blue Top Anion Gap Estim Creat Clear Calc Estimated GFR Random Glucose Osmolality Lactic Acid 1.8 Calcium Magnesium Total Bilirubin Direct Bilirubin AST ALT Alkaline Phosphatase Troponin I High Sens 34.3 D B-Natriuretic Peptide 1302 H Total Protein Albumin Lipase Procalcitonin 0.02 Urine Color Urine Appearance Urine pH Ur Specific [place] Urine Protein Urine Glucose (UA) Urine Ketones Urine Blood Urine Nitrite Ur Leukocyte Esterase Urine RBC Urine WBC Ur Squamous Epith Cells Urine Bacteria Urine Osmolality Ur Random Sodium Stool Occult Blood Coronavirus (PCR) Influenza Type A (PCR) Influenza Type B (PCR) RSV RNA Qual (PCR) 01/08/21 01/08/21 01/08/21 11:30 12:53 12:53 MCV MCH MCHC RDW Plt Count MPV Immature Gran % (Auto) Neut % (Auto) Lymph % (Auto) Schleicher % (Auto) Eos % (Auto) Baso % (Auto) Lymph # (Auto) Schleicher # (Auto) Eos # (Auto) Baso # (Auto) Abs Immat Gran (auto) Absolute Neuts (auto) Absolute Nucleated RBC Nucleated RBC % (auto) Smear Tech's Comments PT INR APTT Hold Blue Top Anion Gap Estim Creat Clear Calc Estimated GFR Random Glucose Osmolality 263 L Lactic Acid Calcium Magnesium Total Bilirubin Direct Bilirubin AST ALT Alkaline Phosphatase Troponin I High Sens B-Natriuretic Peptide Total Protein Albumin Lipase Procalcitonin Urine Color Urine Appearance Urine pH Ur Specific [place] Urine Protein Urine Glucose (UA) Urine Ketones Urine Blood Urine Nitrite Ur Leukocyte Esterase Urine RBC Urine WBC Ur Squamous Epith Cells Urine Bacteria Urine Osmolality 258 L Ur Random Sodium Stool Occult Blood Coronavirus (PCR) NEGATIVE Influenza Type A (PCR) NEGATIVE Influenza Type B (PCR) NEGATIVE RSV RNA Qual (PCR) NEGATIVE 01/08/21 01/08/21 01/08/21 12:53 12:53 12:53 MCV MCH MCHC RDW Plt Count MPV Immature Gran % (Auto) Neut % (Auto) Lymph % (Auto) Schleicher % (Auto) Eos % (Auto) Baso % (Auto) Lymph # (Auto) Schleicher # (Auto) Eos # (Auto) Baso # (Auto) Abs Immat Gran (auto) Absolute Neuts (auto) Absolute Nucleated RBC Nucleated RBC % (auto) Smear Tech's Comments PT INR APTT Hold Blue Top Anion Gap Estim Creat Clear Calc Estimated GFR Random Glucose Osmolality Lactic Acid Calcium Magnesium Total Bilirubin Direct Bilirubin AST ALT Alkaline Phosphatase Troponin I High Sens B-Natriuretic Peptide Total Protein Albumin Lipase Procalcitonin Urine Color YELLOW Urine Appearance CLEAR Urine pH 6.0 Ur Specific [place] 1.010 Urine Protein NEG Urine Glucose (UA) NEG Urine Ketones NEG Urine Blood TRACE Urine Nitrite NEG Ur Leukocyte Esterase NEG Urine RBC 0-2 Urine WBC 0 Ur Squamous Epith Cells TRACE Urine Bacteria NONE Urine Osmolality Ur Random Sodium 37.0 Stool Occult Blood NEGATIVE Coronavirus (PCR) Influenza Type A (PCR) Influenza Type B (PCR) RSV RNA Qual (PCR) <Carmen Guy, INSTRUCTOR NURSE - Last Filed: 01/08/21 16:31> Imaging Radiologist's Impressions: Impressions Chest X-Ray 01/08/21 11:01 IMPRESSION: Low lung volume and multifocal patchy airspace disease throughout the right lung field, new since 11/23/2020. Stable mild cardiomegaly. Abdomen/Pelvis CT 01/08/21 12:28 IMPRESSION: 1. Technically limited study since the patient was unable to raise arm above head as well as follow breathing instructions resulting in significant beam hardening artifacts as well as motion related artifacts. 2. Abnormal CT scan of the chest, shows multilobar patchy airspace disease involving the right hemithorax, concordant with prior chest radiograph done earlier today. 3. Mild cardiomegaly. Mild atherosclerotic disease of the aorta and mild coronary arterial calcifications. 4. The CT scan of the abdomen and pelvis is technically limited as well, grossly appears unremarkable. Chest CT 01/08/21 12:28 IMPRESSION: 1. Technically limited study since the patient was unable to raise arm above head as well as follow breathing instructions resulting in significant beam hardening artifacts as well as motion related artifacts. 2. Abnormal CT scan of the chest, shows multilobar patchy airspace disease involving the right hemithorax, concordant with prior chest radiograph done earlier today. 3. Mild cardiomegaly. Mild atherosclerotic disease of the aorta and mild coronary arterial calcifications. 4. The CT scan of the abdomen and pelvis is technically limited as well, grossly appears unremarkable. Foot X-Ray 01/08/21 12:46 IMPRESSION: No radiographic evidence of any osseous or articular or soft tissue abnormalities. <Carmen Guy NP - Last Filed: 01/08/21 16:31> Assessment and Plan (1) Acute exacerbation of CHF (congestive heart failure): Qualifiers: Heart failure type: systolic Qualified Code(s): I50.23 - Acute on chronic systolic (congestive) heart failure <Carmen Guy NP - Last Filed: 01/08/21 16:31> Status: Acute <Carmen Guy NP - Last Filed: 01/08/21 16:31> 65-year-old man admitted with heart failure with preserved ejection fraction. According to the patient's PRODUCT REPRESENTATIVE he has been out of his Lasix for approximately 1 week. Heart failure with preserved ejection fraction. BNP 1302. Last echocardiogram in 02/2016 showed EF of 40-45% with hypokinesis. -IV Lasix -echocardiogram -cardiology consultation -daily weights, intake and output -continue Bull and beta-arpan Hyponatremia. Seems chronic. Also likely secondary to congestion from heart failure. -trend -diurese Atrial fibrillation. -Pradaxa, metoprolol Seizure disorder. -seizure precautions -Keppra Normocytic anemia. No signs of bleeding. -trend Obesity. BMI 42.7 -discussed importance weight loss as this may contribute to worsening of other comorbidities. DVT prophylaxis with Pradaxa Full code Attending: Dr. Varner <Carmen Guy NP - Last Filed: 01/08/21 16:31>
--- NOTE | 2021-01-08 14:58 | PM.EVENT ---
Event Note Date of Service: 01/08/21 Event Note: Patient seen and examined independently and was present during [place] portion of E/M service. Agree with midlevel's history, physical, assessment, and plan. 65M presented with sob found to have hyponatremia Acute on chronic CHF with reduced ejection fraction IV Lasix Hyponatremia Fluid restrict, Lasix, monitor BMP
--- NOTE | 2021-01-08 15:30 | PC.NURSE ---
condom cath placed by carlos a mazariegos and pct kemi. pt tolerated well. us at bedside. pt aware of plan of care for admission. denied having any questions at this time.
[2021-01-08] MEDS: vancomycin HCL 1,500 MG in 0.9 % Sodium Chloride 500 ML 333.33 MG IV (15:44)
[2021-01-08] MEDS: Metoprolol Succinate ER 25 MG TAB.ER.24H PO (17:02)
[2021-01-08] MEDS: Acetaminophen 325 MG TABLET 650 MG PO (17:05)
--- NOTE | 2021-01-08 18:03 | PC.NURSE ---
attempt to call [place] to [facility] [place] np terrence states next shift will be taking report.
[2021-01-08] MEDS: Albuterol Sulfate (0.083%) 2.5 MG/3 ML VIAL.NEB INHALE ×2 (18:10→23:59)
[2021-01-08] MEDS: traMADoL HCL 50 MG TABLET PO (20:16)
--- NOTE | 2021-01-08 20:25 | PC.NURSE ---
nurse to nurse report given to Vicky BRIGHT
[2021-01-08] MEDS: TiZANidine HCL 4 MG TABLET 2 MG PO (21:25)
[2021-01-08] MEDS: Melatonin 3 MG TABLET 9 MG PO (21:25)
[2021-01-08] MEDS: levETIRAcetam 1,000 MG TABLET 1000 MG PO (21:25)
[2021-01-08] MEDS: Dabigatran Etexilate Mesylate 150 MG CAPSULE PO (21:26)
[2021-01-08] MEDS: Atorvastatin Calcium 10 MG TABLET PO (21:26)
[2021-01-08] MEDS: OXcarbazepine 300 MG TABLET PO (21:26)
[2021-01-09] VITALS (9 sets, daily range): BP systolic 118–145; BP diastolic 56–88; PULSE 44–73; RESP 18–22; TEMP 36.2–37.1; O2SAT 92–98
[2021-01-09] MEDS: 0.9 % Sodium Chloride Flush 3 ML SYRINGE IVFLUSH ×4 (00:32→21:17)
[2021-01-09] MEDS: Furosemide 40 MG/4 ML VIAL IVPUSH ×2 (01:45→08:42)
[2021-01-09 04:55] LABS: MANUAL DIFF FLAG NO
[2021-01-09 05:00] LABS: Basophils Percent Auto 0.5 % (0-2); Eosinophils Percent Auto 0.4 % (0-4); Hematocrit 28.9 % (42-52); Hemoglobin 9.5 g/dl (14.0-18.0); Imm Gran Abs Auto 0.03 X10*3/uL (0.00-0.03); Imm Gran Pct Auto 0.4 % (0.0-0.4); Lymphocytes Absolute Auto 1.7 X10*3/uL (1.2-4.9); Lymphocytes Percent Auto 21.8 % (20-40); Mean Corpuscular HGB Conc 32.9 g/dl (31.0-36.0); Mean Corpuscular Hemoglobin 26.8 pg (27.0-33.0); Mean Corpuscular Volume 81.4 fL (80-98); Mean Platelet Volume 10.3 fL (9.4-12.4); Monocytes Percent Auto 13.3 % (2-11); Neutrophils Percent Auto 63.6 % (45-73); Platelet Count 153 X10*3/uL (160-400); Red Blood Count 3.55 X10*6/uL (4.60-5.80); Red Cell Distribution Width 16.8 % (11.0-16.0); White Blood Count 7.8 X10*3/uL (4.8-10.8)
[2021-01-09 05:23] LABS: Anion Gap 14 (12-20); Blood Urea Nitrogen 13 mg/dL (9-16); Calcium 8.7 mg/dL (8.4-10.2); Carbon Dioxide 31 mmol/L (22-29); Chloride 88 mmol/L (96-108); Creatinine Clr Calc Pharmacy 107.2; Estimated Glomerular Filt Rate > 60; Glucose Random 77 mg/dL (60-115); Potassium 4.4 mmol/L (3.3-5.1); Sodium 129 mmol/L (135-145)
[2021-01-09 05:27] LABS: B Type Natriuretic Peptide 1345 pg/mL (<100)
[2021-01-09] MEDS: Albuterol Sulfate (0.083%) 2.5 MG/3 ML VIAL.NEB INHALE (05:45)
[2021-01-09] MEDS: Omeprazole 20 MG CAPSULE.DR PO (06:01)
[2021-01-09] MEDS: OXcarbazepine 300 MG TABLET PO ×2 (08:41→21:12)
[2021-01-09] MEDS: Escitalopram Oxalate 20 MG TABLET PO (08:41)
[2021-01-09] MEDS: Dabigatran Etexilate Mesylate 150 MG CAPSULE PO ×2 (08:41→21:12)
[2021-01-09] MEDS: levETIRAcetam 1,000 MG TABLET 1000 MG PO ×2 (08:41→21:12)
[2021-01-09] MEDS: lisinopriL 20 MG TABLET PO (08:41)
[2021-01-09] MEDS: Metoprolol Succinate ER 25 MG TAB.ER.24H PO (08:41)
[2021-01-09] MEDS: TiZANidine HCL 4 MG TABLET 2 MG PO ×3 (08:42→21:12)
--- NOTE | 2021-01-09 10:26 | PM.CNCAR ---
History of Present Illness History of Present Illness Date of Service: 01/09/21 Requesting physician: Carmen Guy Consult reason: congestive heart failure Chief complaint: CHF Narrative: Thank you for asking us to see Chandra in cardiology consultation today for congestive heart failure. History was obtained with help of roster clerk. Consult was due to hospitalization with decompensated congestive heart failure. Patient was brought to the hospital by her SWIMMING POOL SERVICEPERSON as she noticed significantly elevated blood pressure and subsequently noted him to be short of breath. When he came to the hospital he was hypertensive and noted to be in heart failure. He was admitted. His usual medications are started including IV Lasix. He has had about negative balance listed about 500 cc in the chart. He does appear to be short of breath today. He complains of lot of noncardiac symptoms of bladder discomfort and back pain. He also said he had some chest pain. His troponins are flat and negative he is in atrial fibrillation which is chronic. He has prior history of CVA in is minimally active and functional mostly bed-bound at home. There was reported that he had run out of Lasix in his medical pill box. No clear reason why suddenly had such an hypertensive blood pressure response. Review of Systems Constitutional: Constitutional: Reports no additional constitutional complaints Cardiovascular: Cardiovascular: Reports chest pain (Fairly atypical), Denies rapid heart rate, Denies lightheadedness, Denies Loss of Consciousness, Denies palpitations and Reports orthopnea Respiratory: Respiratory: Reports no additional respiratory complaints Gastrointestinal: Gastrointestinal: Reports no additional gastrointestinal complaints Genitourinary: Genitourinary: Reports other (Bladder discomfort as per him) Musculoskeletal: Musculoskeletal: Reports stiffness and Reports other (Back pain) Neurologic: Reports system reviewed and no additional complaints, except as documented Psychiatric: Psychiatric: Reports no additional psychiatric complaints Endocrine: Endocrine: Denies palpitations Hematologic/Lymphatic: Hematologic/Lymphatic: Reports no additional hematologic/lymphatic complaints [facility] Past Medical History Medical History Bradycardia Cardiomyopathy Chronic atrial fibrillation Chronic HFrEF (heart failure with reduced ejection fraction) CVA (cerebral vascular accident) HTN (hypertension) Obesity Family History Family History Father Emphysema lung Mother Cardiovascular disease Social History Social History Household Members: Caregiver Housing: House Do you presently have visiting nurse or other home services: Yes (SWIMMING POOL SERVICEPERSON) Unable to assess alcohol history related to: Unknown Alcohol intake: never Smoking Status: Never smoker Second Hand Smoke Exposure: No Use of substances other than those prescribed or required for medical reasons: Unknown Currently Displaying Signs/Symptoms of Drug Intoxication Withdrawal: No Advance Directives: Yes Advance Directives on File: Yes Advance Directives Date on File: 11/23/20 Do you have thoughts of harming others: None Do you have a plan to hurt others: No Plan Recently lost weight without trying: Unsure Nutrition Risks: No Nutritional Risk Poor oral hygiene: No service: No Current occupational status: disabled Meds Allergies Allergy/AdvReac Type Severity Reaction Status Date / Time No Known Allergies Allergy Verified 11/23/20 14:28 Active Medications: Current Medications Generic Name Dose Route Start Last Admin Trade Name Freq PRN Reason Stop Dose Admin Acetaminophen 650 mg 01/08/21 16:41 01/08/21 17:05 Acetaminophen 325 Mg Tablet PO 650 mg Q6H PRN Administration Pain, Mild (Pain Scale 1-3) Albuterol Sulfate 2 puff 01/08/21 16:41 Albuterol Sulfate 90 Mcg 8 Gm Inhaler INHALE Q4H PRN shortness Atorvastatin Calcium 10 mg 01/08/21 21:00 01/08/21 21:26 Atorvastatin Calcium 10 Mg Tablet PO 10 mg BEDTIME VENITA Administration Dabigatran 150 mg 01/08/21 21:00 01/09/21 08:41 Dabigatran Etexilate Mesylate 150 Mg Capsule PO 150 mg BID VENITA Administration Escitalopram Oxalate 20 mg 01/09/21 09:00 01/09/21 08:41 Escitalopram Oxalate 20 Mg Tablet PO 20 mg DAILY VENITA Administration Furosemide 40 mg 01/09/21 01:30 01/09/21 08:42 Furosemide 40 Mg/4 Ml Vial IVPUSH 40 mg BID@0900,1800 VENITA Administration Protocol Levetiracetam 1,000 mg 01/08/21 21:00 01/09/21 08:41 Levetiracetam 1,000 Mg Tablet PO 1,000 mg BID VENITA Administration Melatonin 9 mg 01/08/21 21:00 01/08/21 21:25 Melatonin 3 Mg Tablet PO 9 mg BEDTIME VENITA Administration Metoprolol Succinate 25 mg 01/08/21 16:45 01/09/21 08:41 Metoprolol Succinate Er 25 Mg Tab.Er.24h PO 25 mg DAILY VENITA Administration Protocol Omeprazole 20 mg 01/09/21 06:30 01/09/21 06:01 Omeprazole 20 Mg Capsule.Dr PO 20 mg DAILY@0630 VENITA Administration Ondansetron HCl 4 mg 01/08/21 16:41 Ondansetron Hcl 4 Mg/2 Ml Vial IVPUSH Q8H PRN Nausea and Vomiting Oxcarbazepine 300 mg 01/08/21 21:00 01/09/21 08:41 Oxcarbazepine 300 Mg Tablet PO 300 mg BID VENITA Administration Sodium Chloride 3 ml 01/09/21 00:00 01/09/21 08:51 0.9 % Sodium Chloride Flush 3 Ml Syringe IVFLUSH 3 ml QSHIFT [facility] Administration Tizanidine HCl 2 mg 01/08/21 21:00 01/09/21 08:42 Tizanidine Hcl 4 Mg Tablet PO 2 mg TID [facility] Administration Valsartan 80 mg 01/10/21 09:00 Valsartan 80 Mg Tablet PO BID [facility] Protocol Home Medications Medication Instructions Recorded Confirmed Last Taken Type albuterol sulfate 1 amp INHALATION Q6H 01/08/21 01/08/21 Unknown History albuterol sulfate [ProAir HFA] 2 puff INHALATION Q4-6H PRN 01/08/21 01/08/21 Unknown History citalopram 1 tab PO DAILY 01/08/21 01/08/21 Unknown History dabigatran etexilate [Pradaxa] 1 cap PO BID 01/08/21 01/08/21 Unknown History furosemide 20 mg PO 01/08/21 Unknown History hydroxyzine HCl 10 mg PO 01/08/21 Unknown History levetiracetam 1 tab PO BID 01/08/21 01/08/21 Unknown History lisinopril 1 tab PO DAILY 01/08/21 01/08/21 Unknown History melatonin 2 tab PO BEDTIME 01/08/21 01/08/21 Unknown History metoprolol succinate 1 tab PO QAM 01/08/21 01/08/21 Unknown History oxcarbazepine 1 tab PO BID 01/08/21 01/08/21 Unknown History pantoprazole 1 tab PO QAM 01/08/21 01/08/21 Unknown History simvastatin 1 tab PO QPM 01/08/21 01/08/21 Unknown History tizanidine 0.5 tab PO TID 01/08/21 01/08/21 Unknown History Physical Exam Vital Signs: Vital Signs: Last Vital Signs Temp 97.3 F 01/09/21 07:23 Pulse 61 01/09/21 07:23 Resp 20 01/09/21 07:23 BP 123/72 01/09/21 07:23 Pulse Ox 95 01/09/21 07:23 Body Mass Index 42.7 Const: General: cooperative, comfortable, no acute distress, alert and awake Nutritional Appearance: obese Orientation/consciousness: patient oriented x3 HENMT: Head: Yes normocephalic and Yes atraumatic Neck: Neck: Yes trachea midline, Yes supple and Yes no JVD Resp: Effort & Inspection: normal respiratory effort Cardio: Jugular venous distension: no JVD Rhythm: abnormal rhythm irregularly irregular Heart sounds: S1 normal heart sound present and S2 normal heart sound present GI: Auscultation: normal bowel sounds Skin: General skin exam: no rashes or lesions noted Neuro: General: patient oriented x3 and other (Left hemiplegia) Extrem: General: No clubbing, Yes cyanosis (Left toes) and No edema Psych: Appearance: grossly normal Results Labs and Meds Result diagrams: 01/09/21 04:10 01/09/21 04:10 Lab results: Laboratory Results - last 24 hr 01/08/21 01/08/21 01/08/21 11:30 11:30 11:30 WBC 9.0 RBC 3.55 L Hgb 9.5 L Hct 29.0 L MCV 81.7 MCH 26.8 L MCHC 32.8 RDW 16.4 H Plt Count 155 L MPV 9.4 Immature Gran % (Auto) 0.2 Neut % (Auto) 87.6 H Lymph % (Auto) 4.9 L [place] % (Auto) 7.1 Eos % (Auto) 0.0 Baso % (Auto) 0.2 Lymph # (Auto) 0.4 L [place] # (Auto) 0.6 Eos # (Auto) 0.0 Baso # (Auto) 0.0 Abs Immat Gran (auto) 0.02 Absolute Neuts (auto) 7.9 Absolute Nucleated RBC 0.000 Nucleated RBC % (auto) 0.0 Smear Tech's Comments VERIFIED PT 20.8 H INR 1.7 H APTT 49.6 H Hold Blue Top SEE NOTE Sodium 123 L Potassium 5.1 Chloride 87 L Carbon Dioxide 26 Anion Gap 15 BUN 12 Creatinine 0.93 Estim Creat Clear Calc 99.2 Estimated GFR > 60 Random Glucose 145 H D Osmolality Lactic Acid Calcium 8.6 Magnesium 1.8 Total Bilirubin 0.6 Direct Bilirubin 0.3 AST 18 ALT 18 Alkaline Phosphatase 70 Troponin I High Sens B-Natriuretic Peptide Total Protein 6.5 Albumin 4.1 Lipase 10 Procalcitonin Urine Color Urine Appearance Urine pH Ur Specific [place] Urine Protein Urine Glucose (UA) Urine Ketones Urine Blood Urine Nitrite Ur Leukocyte Esterase Urine RBC Urine WBC Ur Squamous Epith Cells Urine Bacteria Urine Osmolality Ur Random Sodium Stool Occult Blood Coronavirus (PCR) Influenza Type A (PCR) Influenza Type B (PCR) RSV RNA Qual (PCR) 01/08/21 01/08/21 01/08/21 11:30 11:30 11:30 WBC RBC Hgb Hct MCV MCH MCHC RDW Plt Count MPV Immature Gran % (Auto) Neut % (Auto) Lymph % (Auto) [place] % (Auto) Eos % (Auto) Baso % (Auto) Lymph # (Auto) [place] # (Auto) Eos # (Auto) Baso # (Auto) Abs Immat Gran (auto) Absolute Neuts (auto) Absolute Nucleated RBC Nucleated RBC % (auto) Smear Tech's Comments PT INR APTT Hold Blue Top Sodium Potassium Chloride Carbon Dioxide Anion Gap BUN Creatinine Estim Creat Clear Calc Estimated GFR Random Glucose Osmolality Lactic Acid 1.8 Calcium Magnesium Total Bilirubin Direct Bilirubin AST ALT Alkaline Phosphatase Troponin I High Sens 34.3 D B-Natriuretic Peptide 1302 H Total Protein Albumin Lipase Procalcitonin 0.02 Urine Color Urine Appearance Urine pH Ur Specific [place] Urine Protein Urine Glucose (UA) Urine Ketones Urine Blood Urine Nitrite Ur Leukocyte Esterase Urine RBC Urine WBC Ur Squamous Epith Cells Urine Bacteria Urine Osmolality Ur Random Sodium Stool Occult Blood Coronavirus (PCR) Influenza Type A (PCR) Influenza Type B (PCR) RSV RNA Qual (PCR) 01/08/21 01/08/21 01/08/21 11:30 12:53 12:53 WBC RBC Hgb Hct MCV MCH MCHC RDW Plt Count MPV Immature Gran % (Auto) Neut % (Auto) Lymph % (Auto) [place] % (Auto) Eos % (Auto) Baso % (Auto) Lymph # (Auto) [place] # (Auto) Eos # (Auto) Baso # (Auto) Abs Immat Gran (auto) Absolute Neuts (auto) Absolute Nucleated RBC Nucleated RBC % (auto) Smear Tech's Comments PT INR APTT Hold Blue Top Sodium Potassium Chloride Carbon Dioxide Anion Gap BUN Creatinine Estim Creat Clear Calc Estimated GFR Random Glucose Osmolality 263 L Lactic Acid Calcium Magnesium Total Bilirubin Direct Bilirubin AST ALT Alkaline Phosphatase Troponin I High Sens B-Natriuretic Peptide Total Protein Albumin Lipase Procalcitonin Urine Color Urine Appearance Urine pH Ur Specific [place] Urine Protein Urine Glucose (UA) Urine Ketones Urine Blood Urine Nitrite Ur Leukocyte Esterase Urine RBC Urine WBC Ur Squamous Epith Cells Urine Bacteria Urine Osmolality 258 L Ur Random Sodium Stool Occult Blood Coronavirus (PCR) NEGATIVE Influenza Type A (PCR) NEGATIVE Influenza Type B (PCR) NEGATIVE RSV RNA Qual (PCR) NEGATIVE 01/08/21 01/08/21 01/08/21 12:53 12:53 12:53 WBC RBC Hgb Hct MCV MCH MCHC RDW Plt Count MPV Immature Gran % (Auto) Neut % (Auto) Lymph % (Auto) [place] % (Auto) Eos % (Auto) Baso % (Auto) Lymph # (Auto) [place] # (Auto) Eos # (Auto) Baso # (Auto) Abs Immat Gran (auto) Absolute Neuts (auto) Absolute Nucleated RBC Nucleated RBC % (auto) Smear Tech's Comments PT INR APTT Hold Blue Top Sodium Potassium Chloride Carbon Dioxide Anion Gap BUN Creatinine Estim Creat Clear Calc Estimated GFR Random Glucose Osmolality Lactic Acid Calcium Magnesium Total Bilirubin Direct Bilirubin AST ALT Alkaline Phosphatase Troponin I High Sens B-Natriuretic Peptide Total Protein Albumin Lipase Procalcitonin Urine Color YELLOW Urine Appearance CLEAR Urine pH 6.0 Ur Specific [place] 1.010 Urine Protein NEG Urine Glucose (UA) NEG Urine Ketones NEG Urine Blood TRACE Urine Nitrite NEG Ur Leukocyte Esterase NEG Urine RBC 0-2 Urine WBC 0 Ur Squamous Epith Cells TRACE Urine Bacteria NONE Urine Osmolality Ur Random Sodium 37.0 Stool Occult Blood NEGATIVE Coronavirus (PCR) Influenza Type A (PCR) Influenza Type B (PCR) RSV RNA Qual (PCR) 01/09/21 01/09/21 01/09/21 04:10 04:10 04:10 WBC 7.8 RBC 3.55 L Hgb 9.5 L Hct 28.9 L MCV 81.4 MCH 26.8 L MCHC 32.9 RDW 16.8 H Plt Count 153 L MPV 10.3 Immature Gran % (Auto) 0.4 Neut % (Auto) 63.6 Lymph % (Auto) 21.8 [place] % (Auto) 13.3 H Eos % (Auto) 0.4 Baso % (Auto) 0.5 Lymph # (Auto) 1.7 [place] # (Auto) 1.0 Eos # (Auto) 0.0 Baso # (Auto) 0.0 Abs Immat Gran (auto) 0.03 Absolute Neuts (auto) 5.0 Absolute Nucleated RBC 0.000 Nucleated RBC % (auto) 0.0 Smear Tech's Comments PT INR APTT Hold Blue Top Sodium 129 L Potassium 4.4 Chloride 88 L Carbon Dioxide 31 H Anion Gap 14 BUN 13 Creatinine 0.86 Estim Creat Clear Calc 107.2 Estimated GFR > 60 Random Glucose 77 D Osmolality Lactic Acid Calcium 8.7 Magnesium Total Bilirubin Direct Bilirubin AST ALT Alkaline Phosphatase Troponin I High Sens B-Natriuretic Peptide 1345 H Total Protein Albumin Lipase Procalcitonin Urine Color Urine Appearance Urine pH Ur Specific [place] Urine Protein Urine Glucose (UA) Urine Ketones Urine Blood Urine Nitrite Ur Leukocyte Esterase Urine RBC Urine WBC Ur Squamous Epith Cells Urine Bacteria Urine Osmolality Ur Random Sodium Stool Occult Blood Coronavirus (PCR) Influenza Type A (PCR) Influenza Type B (PCR) RSV RNA Qual (PCR) EKG shows atrial fibrillation with controlled ventricular response with low-voltage QRS nonspecific ST changes Imaging Radiologist's impression: Impressions Chest X-Ray 01/08/21 11:01 IMPRESSION: Low lung volume and multifocal patchy airspace disease throughout the right lung field, new since 11/23/2020. Stable mild cardiomegaly. Abdomen/Pelvis CT 01/08/21 12:28 IMPRESSION: 1. Technically limited study since the patient was unable to raise arm above head as well as follow breathing instructions resulting in significant beam hardening artifacts as well as motion related artifacts. 2. Abnormal CT scan of the chest, shows multilobar patchy airspace disease involving the right hemithorax, concordant with prior chest radiograph done earlier today. 3. Mild cardiomegaly. Mild atherosclerotic disease of the aorta and mild coronary arterial calcifications. 4. The CT scan of the abdomen and pelvis is technically limited as well, grossly appears unremarkable. Chest CT 01/08/21 12:28 IMPRESSION: 1. Technically limited study since the patient was unable to raise arm above head as well as follow breathing instructions resulting in significant beam hardening artifacts as well as motion related artifacts. 2. Abnormal CT scan of the chest, shows multilobar patchy airspace disease involving the right hemithorax, concordant with prior chest radiograph done earlier today. 3. Mild cardiomegaly. Mild atherosclerotic disease of the aorta and mild coronary arterial calcifications. 4. The CT scan of the abdomen and pelvis is technically limited as well, grossly appears unremarkable. Foot X-Ray 01/08/21 12:46 IMPRESSION: No radiographic evidence of any osseous or articular or soft tissue abnormalities. Venous Duplex 01/08/21 14:45 IMPRESSION: 1. Incomplete evaluation of the deep venous system, patient unable to tolerate compression evaluation. Deep venous thrombosis cannot be excluded. 2. Color flow seen in the common femoral vein to the popliteal vein suggesting gross patency. 3. The popliteal vein is not visualized. Limited evaluation of the calf veins. The peroneal veins could not be seen. 4. Recommend short-term followup ultrasound for reassessment. Assessment and Plan (1) Acute exacerbation of CHF (congestive heart failure): Qualifiers: Heart failure type: systolic Qualified Code(s): I50.23 - Acute on chronic systolic (congestive) heart failure Status: Acute Patient presented with significantly elevated blood pressure and acute shortness of breath and noted to have elevated BNP. Past history of heart failure with reduced ejection fraction. Off Lasix as per reported in the history. This has been an issue with him in the past as well. Advised compliance with medication with help of roster clerk. This is to reduce hospitalization. His blood pressure is now normalized. Question acute spike in blood pressure causing his heart failure syndrome, which is likely. Discussed about low-salt diet. Will switch his lisinopril to Diovan therapy for now. Advised to monitor blood pressure at home. Eventually will transition as outpatient to Entresto therapy given his heart failure with reduced ejection fraction with prior history of LV ejection fraction in 30% range. Outpatient echocardiogram will be obtained. Will continue Toprol, currently on low-dose due to prior bradycardia. Continue monitor as outpatient. Also as outpatient will consider adding Aldactone therapy after we have some blood work in the future. Follow up in the office in 2 weeks time. Noted blue toes with excellent pulse, unsure the reason for cyanosis in his left toes. Consider vascular surgery consult. (2) Chronic atrial fibrillation: Status: Acute Chronic atrial fibrillation with prior history of bradycardia and therefore low-dose metoprolol therapy. Continue the same for rate control as well as for neurohormonal modulation. Continue full oral anticoagulation, currently on Pradaxa 150 mg b.i.d. with high risk for recurrent thromboembolic complications. Will sign of the case. Thank you for allowing us to partake in his care. Will follow as outpatient. Procedures Date of Service Date of Service: 01/09/21
--- NOTE | 2021-01-09 12:22 | P.PNIM_ITS ---
Subjective Subjective Date of Service: 01/09/21 Interval History: Follow up CHF No sob or cough Pain to left LE with swelling Physical Exam Vital Signs: Vital Signs: Last Vital Signs Temp 97.2 F 01/09/21 12:00 Pulse 73 01/09/21 12:00 Resp 22 H 01/09/21 12:00 BP 120/72 01/09/21 12:00 Pulse Ox 94 01/09/21 12:00 Body Mass Index 42.7 Appearing in no acute distress lung sounds are clear to auscultation heart regular rate rhythm, clear S1, S2 positive bowel sounds, abdomen is soft, nontender neuro patient is alert x3, no focal deficits Ext Left LE edema with pain on palpation Objective Data Current Medications Generic Name Dose Route Start Last Admin Trade Name Jordonq PRN Reason Stop Dose Admin Acetaminophen 650 mg 01/08/21 16:41 01/08/21 17:05 Acetaminophen 325 Mg Tablet PO 650 mg Q6H PRN Administration Pain, Mild (Pain Scale 1-3) Albuterol Sulfate 2 puff 01/08/21 16:41 Albuterol Sulfate 90 Mcg 8 Gm Inhaler INHALE Q4H PRN shortness Atorvastatin Calcium 10 mg 01/08/21 21:00 01/08/21 21:26 Atorvastatin Calcium 10 Mg Tablet PO 10 mg BEDTIME VENITA Administration Dabigatran 150 mg 01/08/21 21:00 01/09/21 08:41 Dabigatran Etexilate Mesylate 150 Mg Capsule PO 150 mg BID VENITA Administration Escitalopram Oxalate 20 mg 01/09/21 09:00 01/09/21 08:41 Escitalopram Oxalate 20 Mg Tablet PO 20 mg DAILY VENITA Administration Furosemide 40 mg 01/09/21 01:30 01/09/21 08:42 Furosemide 40 Mg/4 Ml Vial IVPUSH 40 mg BID@0900,1800 VENITA Administration Protocol Levetiracetam 1,000 mg 01/08/21 21:00 01/09/21 08:41 Levetiracetam 1,000 Mg Tablet PO 1,000 mg BID VENITA Administration Melatonin 9 mg 01/08/21 21:00 01/08/21 21:25 Melatonin 3 Mg Tablet PO 9 mg BEDTIME VENITA Administration Metoprolol Succinate 25 mg 01/08/21 16:45 01/09/21 08:41 Metoprolol Succinate Er 25 Mg Tab.Er.24h PO 25 mg DAILY VENITA Administration Protocol Omeprazole 20 mg 01/09/21 06:30 01/09/21 06:01 Omeprazole 20 Mg Capsule. PO 20 mg DAILY@0630 VENITA Administration Ondansetron HCl 4 mg 01/08/21 16:41 Ondansetron Hcl 4 Mg/2 Ml Vial IVPUSH Q8H PRN Nausea and Vomiting Oxcarbazepine 300 mg 01/08/21 21:00 01/09/21 08:41 Oxcarbazepine 300 Mg Tablet PO 300 mg BID VENITA Administration Oxycodone HCl 5 mg 01/09/21 12:21 Oxycodone Hcl Immed Release 5 Mg Tablet PO 01/09/21 12:22 ONCE ONE Sodium Chloride 3 ml 01/09/21 00:00 01/09/21 08:51 0.9 % Sodium Chloride Flush 3 Ml Syringe IVFLUSH 3 ml QSHIFT [facility] Administration Tizanidine HCl 2 mg 01/08/21 21:00 01/09/21 08:42 Tizanidine Hcl 4 Mg Tablet PO 2 mg TID VENITA Administration Valsartan 80 mg 01/10/21 09:00 Valsartan 80 Mg Tablet PO BID [facility] Protocol Labs CBC & Chem 7: 01/09/21 04:10 01/09/21 04:10 Assessment and Plan (1) Acute exacerbation of CHF (congestive heart failure): Status: Acute Assessment and Plan: 65-year-old man admitted with heart failure with preserved ejection fraction. According to the patient's BUSINESS DEVELOPER he has been out of his Lasix for approximately 1 week. Heart failure with reduced ejection fraction. Echo showed EF 35-40% with severely dilated left atrium Seen and evaluated by cardio, seems euvolemic -Restart home lasix dose -daily weights, intake and output -Lisinopril replaced with Diovan Left leg edema. Pain on palpation. -LE venous doppler, premedicate for pain Toe discoloration. Likely secondary to Raynaud's phenomena Great pulses on both feet -Consider vascular consult if no improvement or symptoms worsen Hyponatremia. Seems chronic. Also likely secondary to congestion from heart failure. Trending up -Follow -oral diuresis Atrial fibrillation. -Pradaxa, metoprolol Seizure disorder. -seizure precautions -Keppra Normocytic anemia. No signs of bleeding. -trend Obesity. BMI 42.7 -discussed importance weight loss as this may contribute to worsening of other comorbidities. DVT prophylaxis with Pradaxa Full code Attending: Dr. Varner
[2021-01-09] MEDS: oxyCODONE HCl Immed Release 5 MG TABLET PO (14:23)
--- NOTE | 2021-01-09 16:02 | MHC.CM.PN ---
PT LIVES ALONE AND HAS DAILY TOP KNITTER HOURS FROM [phone] AND HS HOURS [phone]. 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 PT AND TOP KNITTER (NORRIS [phone]) BOTH UNABLE TO PROVIDE THE NAME OF PTS VNA HOWEVER TOP KNITTER BELIEVES THERE WERE TWO AGENCIES COMING AND ONE WAS FROM [facility]. CM WILL SEND A REFERRAL TO [facility] TO CONFIRM. PT HAS BEEN TO [place] IN THE PAST AND PER TOP KNITTER, HE DID NOT HAVE A GOOD EXPERIENCE. CURRENTLY, DC PLAN IS TBD. HOME WITH RESUMPTION OF SERVICES VS STR PT WILL NEED A CHAIR VAN AT DC PLEASE UPDATE PTS TOP KNITTER AT TIME OF DC SO THAT HE MAY BE THERE TO MEET PT
--- NOTE | 2021-01-09 16:41 | CA_ITS ---
Transthoracic Echocardiogram Patient (Last, First, Middle): Chandra Rose, Gender: Male Date of : 1955 Age: 65 Procedure Date: 01/09/2021 Procedure Type: Transthoracic Echocardiogram [place] [facility] [place] Height: 167.64 cm Weight: 119.75 kg BSA: 2.25 m2 Heart Rate: bpm BP: 123 / 72 mmHg Mis Manager: CROW Referring MD: Carmen Guy NP Filler Block Inserter Remover: Ayush Perez MD Symptoms: chf Study Quality: Technically Difficult ECG Rhythm: Atrial Fibrillation Conclusions: - 1. Mildly dilated left ventricle mild LVH with LVEF of 35-40% 2. Severely dilated left atrium 3. Mild mitral regurgitation 4. Normal RV systolic pressure 5. No pericardial effusion Findings Left Ventricle Mildly increased left ventricular cavity size. There is mildly increased left ventricular wall thickness. The left ventricular systolic function is moderately decreased. The visually estimated ejection fraction is between 35 40%. There is moderate global hypokinesis. Diastolic function is indeterminate on the basis of available data. Right Ventricle The right ventricle was not well visualized. Atria The left atrium is elongated. Interatrial shunt cannot be excluded. The right atrium was not well visualized. Aortic Valve Normal aortic valve structure and function. There is no aortic valve stenosis. There is no aortic valve regurgitation. Mitral Valve There is mild anterior mitral leaflet thickening. There is mild mitral valve regurgitation. There is no mitral valve stenosis. Tricuspid Valve The tricuspid valve was not well visualized. There is mild tricuspid valve regurgitation. The right ventricular systolic pressure is normal. Normal right atrial pressure. There is no evidence of pulmonary hypertension. Great Vessels All visible segments of the aorta are normal in size. The pulmonary artery was not well visualized. Venous The inferior vena cava is normal in size and collapses greater than 50% with inspiration. Pericardium/Pleural There is no evidence of pericardial effusion. Prior Study Comparison No significant change compared to prior study dated: 05/04/2021. Measurements 2D Linear Measurements IVSd: 1.26 0.6-0.9/0.6-1.0 cm LVIDd: 5.80 3.9-5.3/4.2-5.9 cm LVIDd Index: 2.58 2.4-3.2/2.2-3.1 cm/m2 LVIDs: 4.59 2.0-3.6 cm LVPWd: 1.27 0.7-1.1 cm Ao Root: 3.30 2.1-3.5 cm LA Diam: 4.80 2.7-3.8/3.0-4.0 cm LAIDs Index: 2.13 1.5-2.3 cm/m2 LV Mass: 398.21 67-162/88-224 g LV Mass Index: 176.98 43-95/49-115 g/m2 LVOT Diam: 2.20 3.0+(-)1.3 cm Mitral Valve MV Pk E: 0.98 MV Decel Time: 211.00 E'Lateral: 14.50 E'Medial: 9.57 E/E' Med: 10.20 E/E' Lat: 6.70 PHT: 62.00 MVA PHT: 3.55 Decel Holmes: 4.62 Aortic Valve AoV Pk Derek: 1.09 AoV Mn Derek: 0.68 AoV VTI: 0.24 AoV Pk Grad: 5.00 Aov Mn Grad: 2.00 ELVIE Cont.VTI: 3.39 LVOT LVOT Pk Derek: 0.84 LVOT Mn Derek: 0.53 LVOT VTI: 0.22 LVOT Pk Grad: 3.00 LVOT Mn Grad: 1.00 LVOT Diam: 2.20 LVOT Area: 3.80 Diastolic Function MV Pk E: 0.98 E'Medial: 9.57 E/E' Med: 10.20 E' Laterial: 14.50 E/E' Lat: 6.70 Tricuspid Valve TR Pk Derek: 2.21 TR Pk Grad: 20.00 RA Press: 3.00 RVSP: 23.00 Great Vessels Aorta Ao Root-2D: 3.30 2.0-3.7 cm Pulmonary Valve PV Pk Derek: 0.95 Peak PV Grad: 4.00 Updated in Other Vendor System with Status of Final Ayush Perez MD electronically signed on 01/09/2021 1:29:30 PM with status of Final
--- NOTE | 2021-01-09 17:11 | P.CONNP_ITS ---
History of Present Illness Reason for Consult Consult date: 01/09/21 Reason for consult: Hyponatremia Chief Complaint Chief complaint: CHF History of Present Illness Narrative: 65 year old frisian speaking man presented to the ER by EMS after his FINANCIAL AID ADVISOR noticed that his face looked swollen and has been having trouble breathing. His blood pressure was noted to be elevated at 207/138. He also has been having left leg more swollen recently. Apparently the patient takes Lasix at home and his PC noticed that he had not had Lasix in his medication box for approximately 1 week. Patient denied any chest pain did report some mild shortness of breath, left leg pain and swelling. Chest CT showed some multi lobar patchy airspace disease, patient had no fever, leukocytosis or cough. In the ER his sodium was 123. He was admitted for further management. Nephrology has been consulted to assist in his clinical care. Review of Systems Review of Systems Yes all other systems are reviewed and are negative PMFSH Past Medical History Medical History Bradycardia Cardiomyopathy Chronic atrial fibrillation Chronic HFrEF (heart failure with reduced ejection fraction) CVA (cerebral vascular accident) HTN (hypertension) Obesity Family History Family History Father Emphysema lung Mother Cardiovascular disease Social History Social History Household Members: Caregiver Housing: House Do you presently have visiting nurse or other home services: Yes (FINANCIAL AID ADVISOR) Unable to assess alcohol history related to: Unknown Alcohol intake: never Smoking Status: Never smoker Second Hand Smoke Exposure: No Use of substances other than those prescribed or required for medical reasons: Unknown Currently Displaying Signs/Symptoms of Drug Intoxication Withdrawal: No Advance Directives: Yes Advance Directives on File: Yes Advance Directives Date on File: 11/23/20 Do you have thoughts of harming others: None Do you have a plan to hurt others: No Plan Recently lost weight without trying: Unsure Nutrition Risks: No Nutritional Risk Poor oral hygiene: No service: No Current occupational status: disabled Meds Allergies Allergy/AdvReac Type Severity Reaction Status Date / Time No Known Allergies Allergy Verified 11/23/20 14:28 Active Medications: Current Medications Generic Name Dose Route Start Last Admin Trade Name Freq PRN Reason Stop Dose Admin Acetaminophen 650 mg 01/08/21 16:41 01/08/21 17:05 Acetaminophen 325 Mg Tablet PO 650 mg Q6H PRN Administration Pain, Mild (Pain Scale 1-3) Albuterol Sulfate 2 puff 01/08/21 16:41 Albuterol Sulfate 90 Mcg 8 Gm Inhaler INHALE Q4H PRN shortness Atorvastatin Calcium 10 mg 01/08/21 21:00 01/08/21 21:26 Atorvastatin Calcium 10 Mg Tablet PO 10 mg BEDTIME VENITA Administration Dabigatran 150 mg 01/08/21 21:00 01/09/21 08:41 Dabigatran Etexilate Mesylate 150 Mg Capsule PO 150 mg BID VENITA Administration Escitalopram Oxalate 20 mg 01/09/21 09:00 01/09/21 08:41 Escitalopram Oxalate 20 Mg Tablet PO 20 mg DAILY VENITA Administration Furosemide 20 mg 01/10/21 09:00 Furosemide 20 Mg Tablet PO DAILY VENITA Protocol Levetiracetam 1,000 mg 01/08/21 21:00 01/09/21 08:41 Levetiracetam 1,000 Mg Tablet PO 1,000 mg BID VENITA Administration Melatonin 9 mg 01/08/21 21:00 01/08/21 21:25 Melatonin 3 Mg Tablet PO 9 mg BEDTIME VENITA Administration Metoprolol Succinate 25 mg 01/08/21 16:45 01/09/21 08:41 Metoprolol Succinate Er 25 Mg Tab.Er.24h PO 25 mg DAILY VENITA Administration Protocol Omeprazole 20 mg 01/09/21 06:30 01/09/21 06:01 Omeprazole 20 Mg Capsule.Dr PO 20 mg DAILY@0630 VENITA Administration Ondansetron HCl 4 mg 01/08/21 16:41 Ondansetron Hcl 4 Mg/2 Ml Vial IVPUSH Q8H PRN Nausea and Vomiting Oxcarbazepine 300 mg 01/08/21 21:00 01/09/21 08:41 Oxcarbazepine 300 Mg Tablet PO 300 mg BID VENITA Administration Sodium Chloride 3 ml 01/09/21 00:00 01/09/21 15:18 0.9 % Sodium Chloride Flush 3 Ml Syringe IVFLUSH 3 ml QSHIFT [facility]ENITA Administration Tizanidine HCl 2 mg 01/08/21 21:00 01/09/21 15:18 Tizanidine Hcl 4 Mg Tablet PO 2 mg TID VENITA Administration Valsartan 80 mg 01/10/21 09:00 Valsartan 80 Mg Tablet PO BID [facility] Protocol Home Medications Medication Instructions Recorded Confirmed Last Taken Type albuterol sulfate 1 amp INHALATION Q6H 01/08/21 01/08/21 Unknown History albuterol sulfate [ProAir HFA] 2 puff INHALATION Q4-6H PRN 01/08/21 01/08/21 Unknown History citalopram 1 tab PO DAILY 01/08/21 01/08/21 Unknown History dabigatran etexilate [Pradaxa] 1 cap PO BID 01/08/21 01/08/21 Unknown History furosemide 20 mg PO 01/08/21 Unknown History hydroxyzine HCl 10 mg PO 01/08/21 Unknown History levetiracetam 1 tab PO BID 01/08/21 01/08/21 Unknown History lisinopril 1 tab PO DAILY 01/08/21 01/08/21 Unknown History melatonin 2 tab PO BEDTIME 01/08/21 01/08/21 Unknown History metoprolol succinate 1 tab PO QAM 01/08/21 01/08/21 Unknown History oxcarbazepine 1 tab PO BID 01/08/21 01/08/21 Unknown History pantoprazole 1 tab PO QAM 01/08/21 01/08/21 Unknown History simvastatin 1 tab PO QPM 01/08/21 01/08/21 Unknown History tizanidine 0.5 tab PO TID 01/08/21 01/08/21 Unknown History Physical Exam Vital Signs: Last Vital Signs Temp 97.5 F 01/09/21 15:23 Pulse 68 01/09/21 15:23 Resp 19 01/09/21 15:23 BP 145/84 H 01/09/21 15:23 Pulse Ox 98 01/09/21 15:23 Body Mass Index 42.7 Const General: No no acute distress Neck Neck: Yes supple Resp Auscultation: diminished lung sounds Cardio Jugular venous distension: no JVD GI Palpation (GI): Soft to palpation Neuro General: moves all extremities Results Lab Results Result Diagrams: 01/09/21 04:10 01/09/21 04:10 Lab results: Chemistry 01/08/21 01/09/21 11:30 04:10 Sodium 123 L 129 L Potassium 5.1 4.4 Carbon Dioxide 26 31 H BUN 12 13 Creatinine 0.93 0.86 Calcium 8.6 8.7 Hematology 01/08/21 01/09/21 11:30 04:10 WBC 9.0 7.8 Hgb 9.5 L 9.5 L Plt Count 155 L 153 L Urinalysis 01/08/21 12:53 Urine Color YELLOW Urine Appearance CLEAR Urine pH 6.0 Ur Specific [place] 1.010 Urine Protein NEG Urine Glucose (UA) NEG Urine Ketones NEG Urine Blood TRACE Urine Nitrite NEG Ur Leukocyte Esterase NEG Urine RBC 0-2 Urine WBC 0 Ur Squamous Epith Cells TRACE Urine Studies 01/08/21 12:53 Urine Osmolality 258 L Assessment and Plan (1) Hyponatremia: Problem details: Hypervolemic Hypontremia 2 Gram Na restriction with fluid restriction Continue diuresis; Closely monitor lytes/renal function Shall closely follow up Status: Acute Procedures Date of Service Date of Service: 01/09/21
[2021-01-09] MEDS: Magnesium Hydrox/Alum Hydrox 30 ML ORAL.SUSP 15 ML PO (19:47)
[2021-01-09] MEDS: Acetaminophen 325 MG TABLET 650 MG PO (19:50)
--- NOTE | 2021-01-09 21:00 | PC.NURSE ---
pt refusing POC. states he is not a diabetic. No insulin given.
[2021-01-09] MEDS: Atorvastatin Calcium 10 MG TABLET PO (21:12)
[2021-01-09] MEDS: Melatonin 3 MG TABLET 9 MG PO (21:12)
--- NOTE | 2021-01-09 23:36 | PC.NURSE ---
Pt bradycardic while sleeping. HR dipping to 35bpm then going back up to low 50's. Pacer pads in the room. MD aware.
[2021-01-10] VITALS (8 sets, daily range): BP systolic 112–150; BP diastolic 62–88; PULSE 58–166; RESP 18–22; TEMP 36.2–36.7; O2SAT 95–97
[2021-01-10] MEDS: Omeprazole 20 MG CAPSULE.DR PO (06:05)
[2021-01-10 07:30] LABS: Glucose, Whole Blood 70 mg/dL (60-115)
[2021-01-10] MEDS: Metoprolol Succinate ER 25 MG TAB.ER.24H PO (08:42)
[2021-01-10] MEDS: Valsartan 80 MG TABLET PO ×2 (08:43→20:30)
[2021-01-10] MEDS: levETIRAcetam 1,000 MG TABLET 1000 MG PO ×2 (08:43→20:30)
[2021-01-10] MEDS: TiZANidine HCL 4 MG TABLET 2 MG PO ×3 (08:44→20:30)
[2021-01-10] MEDS: OXcarbazepine 300 MG TABLET PO ×2 (08:44→20:30)
[2021-01-10] MEDS: 0.9 % Sodium Chloride Flush 3 ML SYRINGE IVFLUSH ×3 (08:45→20:31)
[2021-01-10] MEDS: Escitalopram Oxalate 20 MG TABLET PO (08:45)
[2021-01-10] MEDS: Furosemide 20 MG TABLET PO (08:45)
[2021-01-10] MEDS: Dabigatran Etexilate Mesylate 150 MG CAPSULE PO ×2 (09:07→20:30)
[2021-01-10] MEDS: Magnesium Hydrox/Alum Hydrox 30 ML ORAL.SUSP 15 ML PO (10:32)
[2021-01-10] MEDS: Acetaminophen 325 MG TABLET 650 MG PO (10:32)
--- NOTE | 2021-01-10 12:52 | P.CDIC_ITS ---
CDI Concurrent Query Service Date: 01/14/21 Documentation Clarification: Please clarify if you are treating a proba ble/suspected/likely or confirmed: Cellulitis left foot (Txt, rule out)-patient does not have cellulitis, he has and Raynaud phenomena instead. Please specify if known Provider Response: Other Other Diagnosis: Raynaud phenomenon PLEASE DO NOT DELETE/MODIFY EXISTING CONTENT Additional information is needed in order to code to the highest accuracy and appropriate Severity of Illness (SOI). Please clarify the information noted below in your progress notes and discharge summary. Risk Factors/Clinical Indicators/Treatments Ed: Clinicial Impression: Cellulitis of foot, left. Left lower extremity edema and erythematous. Toe discoloration Wheelchair bound Left foot redness consider vascular consult CDS: Dayanna Soares CCS, CDIS Contact Number: [phone] Please Review the information above and exercise your independent professional judgment in responding to the query. If you concur, pleas document in the PROGRESS NOTES and DISCHARGE SUMMARY. If you do not agree with the query, please document in the query above. THIS QUERY IS PART OF THE PERMANENT MEDICAL RECORD
--- NOTE | 2021-01-10 13:11 | PM.CNGS ---
History of Present Illness Consult details Consult date: 01/10/21 Reason for consult: abdominal pain Narrative: Complex 65-year-old gentleman was originally admitted on 01/09/2021. He had presented by EMS with headache and abdominal pain upon workup was found to have congestive heart failure. He was subsequently admitted for that and treated worked up. Upon evaluation he was noted to have discolored lower extremities. He has had DVT workup which was essentially negative. He now presents to us for evaluation of his lower extremities in addition concern of this abdominal pain and potential mesenteric ischemia. Of note patient denies any significant weight loss. Prior to this acute event of abdominal discomfort he was tolerating a normal diet with no issues. Review of Systems Review of Systems: Yes all other systems are reviewed and are negative Constitutional: Constitutional: Reports no additional constitutional complaints and Reports headache(s) ENT: Reports Normal hearing present and Reports headache(s) Cardiovascular: Cardiovascular: Denies chest pain, Denies chest pain at rest, Denies chest pain with activity and Denies pedal edema Respiratory: Respiratory: Denies cough Gastrointestinal: Gastrointestinal: Denies abdominal pain Musculoskeletal: Musculoskeletal: Denies abnormal gait, Denies muscle cramps and Denies radiating pain into limb Integumentary/Breasts: Skin/Breast: Denies skin ulcer and Denies wounds Neurologic: Reports Normal hearing present, Denies abnormal gait and Reports headache(s) Psychiatric: Psychiatric: Reports no additional psychiatric complaints PMFSH Past Medical History Medical History Bradycardia Cardiomyopathy Chronic atrial fibrillation Chronic HFrEF (heart failure with reduced ejection fraction) CVA (cerebral vascular accident) HTN (hypertension) Obesity Family History Family History Father Emphysema lung Mother Cardiovascular disease Social History Social History Household Members: Caregiver Housing: House Do you presently have visiting nurse or other home services: Yes ([employer]) Unable to assess alcohol history related to: Unknown Alcohol intake: never Smoking Status: Never smoker Second Hand Smoke Exposure: No Use of substances other than those prescribed or required for medical reasons: Unknown Currently Displaying Signs/Symptoms of Drug Intoxication Withdrawal: No Advance Directives: Yes Advance Directives on File: Yes Advance Directives Date on File: 11/23/20 Do you have thoughts of harming others: None Do you have a plan to hurt others: No Plan Recently lost weight without trying: Unsure Nutrition Risks: No Nutritional Risk Poor oral hygiene: No service: No Current occupational status: disabled Meds Allergies Allergy/AdvReac Type Severity Reaction Status Date / Time No Known Allergies Allergy Verified 11/23/20 14:28 Active Medications: Current Medications Generic Name Dose Route Start Last Admin Trade Name Freq PRN Reason Stop Dose Admin Acetaminophen 650 mg 01/08/21 16:41 01/10/21 10:32 Acetaminophen 325 Mg Tablet PO 650 mg Q6H PRN Administration Pain, Mild (Pain Scale 1-3) Al Hydroxide/Mg Hydroxide 15 ml 01/09/21 19:08 01/10/21 10:32 Magnesium Hydrox/Alum Hydrox 30 Ml Oral.Susp PO 15 ml Q6H PRN Administration Heartburn Albuterol Sulfate 2 puff 01/08/21 16:41 Albuterol Sulfate 90 Mcg 8 Gm Inhaler INHALE Q4H PRN shortness Atorvastatin Calcium 10 mg 01/08/21 21:00 01/09/21 21:12 Atorvastatin Calcium 10 Mg Tablet PO 10 mg BEDTIME [facility]ENITA Administration Dabigatran 150 mg 01/08/21 21:00 01/10/21 09:07 Dabigatran Etexilate Mesylate 150 Mg Capsule PO 150 mg BID [facility]ENITA Administration Docusate Sodium 100 mg 01/10/21 21:00 Docusate Sodium 100 Mg Capsule PO BEDTIME VENITA Escitalopram Oxalate 20 mg 01/09/21 09:00 01/10/21 08:45 Escitalopram Oxalate 20 Mg Tablet PO 20 mg DAILY [facility] Administration Furosemide 20 mg 01/10/21 09:00 01/10/21 08:45 Furosemide 20 Mg Tablet PO 20 mg DAILY [facility]ITA Administration Protocol Insulin Human Lispro 0 unit 01/09/21 21:00 01/10/21 11:47 Insulin Lispro 100 Unit/Ml 3 Ml Vial SUBCUT Not Given QIDACHS [facility] Protocol Levetiracetam 1,000 mg 01/08/21 21:00 01/10/21 08:43 Levetiracetam 1,000 Mg Tablet PO 1,000 mg BID VENITA Administration Lidocaine 1 patch 01/10/21 12:45 Lidocaine 4 % Patch Adh..Patch TRANSDERMA DAILY [facility] Protocol Melatonin 9 mg 01/08/21 21:00 01/09/21 21:12 Melatonin 3 Mg Tablet PO 9 mg BEDTIME [facility]ENITA Administration Metoprolol Succinate 25 mg 01/08/21 16:45 01/10/21 08:42 Metoprolol Succinate Er 25 Mg Tab.Er.24h PO 25 mg DAILY [facility]ENITA Administration Protocol Morphine Sulfate 1 mg 01/10/21 12:17 Morphine Sulfate 2 Mg/Ml Cartridge IVPUSH Q4H PRN abd pain/back pain Omeprazole 20 mg 01/09/21 06:30 01/10/21 06:05 Omeprazole 20 Mg Capsule.Dr PO 20 mg DAILY@0630 [facility]ENITA Administration Ondansetron HCl 4 mg 01/08/21 16:41 Ondansetron Hcl 4 Mg/2 Ml Vial IVPUSH Q8H PRN Nausea and Vomiting Oxcarbazepine 300 mg 01/08/21 21:00 01/10/21 08:44 Oxcarbazepine 300 Mg Tablet PO 300 mg BID [facility]EN[facility] Administration Polyethylene Glycol 17 gm 01/10/21 12:30 01/10/21 13:01 Polyethylene Glycol 3350 17 Gm Powd.Pack PO Not Given BID [facility]ENITA Sodium Chloride 3 ml 01/09/21 00:00 01/10/21 08:45 0.9 % Sodium Chloride Flush 3 Ml Syringe IVFLUSH 3 ml QSHIFT [facility]ENITA Administration Tizanidine HCl 2 mg 01/08/21 21:00 01/10/21 08:44 Tizanidine Hcl 4 Mg Tablet PO 2 mg TID [facility]ENITA Administration Valsartan 80 mg 01/10/21 09:00 01/10/21 08:43 Valsartan 80 Mg Tablet PO 80 mg BID [facility] Administration Protocol Home Medications Medication Instructions Recorded Confirmed Last Taken Type albuterol sulfate 1 amp INHALATION Q6H 01/08/21 01/08/21 Unknown History albuterol sulfate [ProAir HFA] 2 puff INHALATION Q4-6H PRN 01/08/21 01/08/21 Unknown History citalopram 1 tab PO DAILY 01/08/21 01/08/21 Unknown History dabigatran etexilate [Pradaxa] 1 cap PO BID 01/08/21 01/08/21 Unknown History furosemide 20 mg PO 01/08/21 Unknown History hydroxyzine HCl 10 mg PO 01/08/21 Unknown History levetiracetam 1 tab PO BID 01/08/21 01/08/21 Unknown History lisinopril 1 tab PO DAILY 01/08/21 01/08/21 Unknown History melatonin 2 tab PO BEDTIME 01/08/21 01/08/21 Unknown History metoprolol succinate 1 tab PO QAM 01/08/21 01/08/21 Unknown History oxcarbazepine 1 tab PO BID 01/08/21 01/08/21 Unknown History pantoprazole 1 tab PO QAM 01/08/21 01/08/21 Unknown History simvastatin 1 tab PO QPM 01/08/21 01/08/21 Unknown History tizanidine 0.5 tab PO TID 01/08/21 01/08/21 Unknown History Physical Exam Vital Signs: Vital Signs: Last Vital Signs Temp 97.9 F 01/10/21 11:12 Pulse 67 01/10/21 11:12 Resp 22 H 01/10/21 11:12 BP 135/88 01/10/21 11:12 Pulse Ox 96 01/10/21 11:12 Body Mass Index 42.7 Const: General: cooperative, healthy appearing and comfortable Orientation/consciousness: oriented to person, oriented to place and oriented to time HENMT: Head: Yes normal to inspection Neck: Neck: Yes normal visual inspection Carotids: no bruits Chest: Chest palpation & inspection: normal inspection of the chest Resp: Effort & Inspection: normal respiratory effort and able to speak in complete sentences Auscultation: clear to auscultation bilaterally, no crackles, no rales, no rhonchi and no wheezes Cardio: Rate: regular rate Rhythm: regular rhythm Heart sounds: S1 normal heart sound present and S2 normal heart sound present Bruits: no carotid bruits Peripheral pulses: Peripheral pulses 2+ throughout GI: Inspection: Yes normal to inspection and Yes obesity Skin: Wounds: no wounds Hair: normal Neuro: General: oriented to person, oriented to place and oriented to time Cranial nerves: Yes CN's II-XII intact bilaterally and Yes Normal hearing present Cognition (Neuro): normal cognition Motor exam (neuro): 5/5 motor strength present throughout Extrem: Other: venous exam: No significant superficial varicosities or spider telangiectasias, minimal edema General: No clubbing, No cyanosis and No edema Psych: Appearance: grossly normal Mental Status: mental status grossly normal Speech and movement: Normal speech and movement present Results Labs Result diagrams: 01/09/21 04:10 01/09/21 04:10 Labs: Urine 01/08/21 Range/Units 12:53 Urine Color YELLOW Urine Appearance CLEAR Urine pH 6.0 (5.0-8.0) Ur Specific [place] 1.010 (1.005-1.025) Urine Protein NEG (NEG-TRACE) MG/DL Urine Glucose (UA) NEG (NEG) MG/DL All other labs normal.
[2021-01-10] MEDS: Lidocaine 4 % Patch ADH..PATCH 1 PATCH TRANSDERMA (14:12)
--- NOTE | 2021-01-10 14:20 | P.CONGS_ITS ---
History of Present Illness Consult details Consult date: 01/10/21 Reason for consult: abdominal pain Narrative: Very complex 65-year-old gentleman actually presented to the hospital yesterday. There is complaints originally some headache abdominal discomfort generalized weakness. He was brought in by EMS. Upon workup he was noted to elements of acute congestive heart failure. Upon examination noted the lower extremity had discoloration in addition he had some abdominal pain. He now presents to us for vascular evaluation. Review of Systems Review of Systems: Yes all other systems are reviewed and are negative Constitutional: Constitutional: Reports no additional constitutional complaints ENT: Reports Normal hearing present Cardiovascular: Cardiovascular: Denies chest pain, Denies chest pain at rest, Denies chest pain with activity and Denies pedal edema Respiratory: Respiratory: Denies cough Gastrointestinal: Gastrointestinal: Reports abdominal pain Musculoskeletal: Musculoskeletal: Denies abnormal gait, Denies muscle cramps and Denies radiating pain into limb Integumentary/Breasts: Skin/Breast: Denies skin ulcer and Denies wounds Neurologic: Reports Normal hearing present and Denies abnormal gait Psychiatric: Psychiatric: Reports no additional psychiatric complaints [facility] Past Medical History Medical History Bradycardia Cardiomyopathy Chronic atrial fibrillation Chronic HFrEF (heart failure with reduced ejection fraction) CVA (cerebral vascular accident) HTN (hypertension) Obesity Family History Family History Father Emphysema lung Mother Cardiovascular disease Social History Social History Household Members: Caregiver Housing: House Do you presently have visiting nurse or other home services: Yes ([employer]) Unable to assess alcohol history related to: Unknown Alcohol intake: never Smoking Status: Never smoker Second Hand Smoke Exposure: No Advance Directives Date on File: 11/23/20 service: No Current occupational status: disabled Meds Allergies Allergy/AdvReac Type Severity Reaction Status Date / Time No Known Allergies Allergy Verified 11/23/20 14:28 Active Medications: Current Medications Generic Name Dose Route Start Last Admin Trade Name Freq PRN Reason Stop Dose Admin Acetaminophen 650 mg 01/08/21 16:41 01/10/21 10:32 Acetaminophen 325 Mg Tablet PO 650 mg Q6H PRN Administration Pain, Mild (Pain Scale 1-3) Al Hydroxide/Mg Hydroxide 15 ml 01/09/21 19:08 01/10/21 10:32 Magnesium Hydrox/Alum Hydrox 30 Ml Oral.Susp PO 15 ml Q6H PRN Administration Heartburn Albuterol Sulfate 2 puff 01/08/21 16:41 Albuterol Sulfate 90 Mcg 8 Gm Inhaler INHALE Q4H PRN shortness Atorvastatin Calcium 10 mg 01/08/21 21:00 01/09/21 21:12 Atorvastatin Calcium 10 Mg Tablet PO 10 mg BEDTIME [facility]ENITA Administration Dabigatran 150 mg 01/08/21 21:00 01/10/21 09:07 Dabigatran Etexilate Mesylate 150 Mg Capsule PO 150 mg BID [facility]ENITA Administration Docusate Sodium 100 mg 01/10/21 21:00 Docusate Sodium 100 Mg Capsule PO BEDTIME VENITA Escitalopram Oxalate 20 mg 01/09/21 09:00 01/10/21 08:45 Escitalopram Oxalate 20 Mg Tablet PO 20 mg DAILY [facility] Administration Furosemide 20 mg 01/10/21 09:00 01/10/21 08:45 Furosemide 20 Mg Tablet PO 20 mg DAILY [facility] Administration Protocol Insulin Human Lispro 0 unit 01/09/21 21:00 01/10/21 11:47 Insulin Lispro 100 Unit/Ml 3 Ml Vial SUBCUT Not Given QIDACHS [facility] Protocol Levetiracetam 1,000 mg 01/08/21 21:00 01/10/21 08:43 Levetiracetam 1,000 Mg Tablet PO 1,000 mg BID [facility]ENITA Administration Lidocaine 1 patch 01/10/21 12:45 01/10/21 14:12 Lidocaine 4 % Patch Adh..Patch TRANSDERMA 1 patch DAILY [facility] Administration Protocol Melatonin 9 mg 01/08/21 21:00 01/09/21 21:12 Melatonin 3 Mg Tablet PO 9 mg BEDTIME [facility] Administration Metoprolol Succinate 25 mg 01/08/21 16:45 01/10/21 08:42 Metoprolol Succinate Er 25 Mg Tab.Er.24h PO 25 mg DAILY [facility] Administration Protocol Morphine Sulfate 1 mg 01/10/21 12:17 Morphine Sulfate 2 Mg/Ml Cartridge IVPUSH Q4H PRN abd pain/back pain Omeprazole 20 mg 01/09/21 06:30 01/10/21 06:05 Omeprazole 20 Mg Capsule.Dr PO 20 mg DAILY@0630 [facility]EN[facility] Administration Ondansetron HCl 4 mg 01/08/21 16:41 Ondansetron Hcl 4 Mg/2 Ml Vial IVPUSH Q8H PRN Nausea and Vomiting Oxcarbazepine 300 mg 01/08/21 21:00 01/10/21 08:44 Oxcarbazepine 300 Mg Tablet PO 300 mg BID [facility] Administration Polyethylene Glycol 17 gm 01/10/21 12:30 01/10/21 13:01 Polyethylene Glycol 3350 17 Gm Powd.Pack PO Not Given BID [facility]ENITA Sodium Chloride 3 ml 01/09/21 00:00 01/10/21 08:45 0.9 % Sodium Chloride Flush 3 Ml Syringe IVFLUSH 3 ml QSHIFT [facility] Administration Tizanidine HCl 2 mg 01/08/21 21:00 01/10/21 08:44 Tizanidine Hcl 4 Mg Tablet PO 2 mg TID [facility]ENITA Administration Valsartan 80 mg 01/10/21 09:00 01/10/21 08:43 Valsartan 80 Mg Tablet PO 80 mg BID [facility]ENITA Administration Protocol Home Medications Medication Instructions Recorded Confirmed Last Taken Type albuterol sulfate 1 amp INHALATION Q6H 01/08/21 01/08/21 Unknown History albuterol sulfate [ProAir HFA] 2 puff INHALATION Q4-6H PRN 01/08/21 01/08/21 Unknown History citalopram 1 tab PO DAILY 01/08/21 01/08/21 Unknown History dabigatran etexilate [Pradaxa] 1 cap PO BID 01/08/21 01/08/21 Unknown History furosemide 20 mg PO 01/08/21 Unknown History hydroxyzine HCl 10 mg PO 01/08/21 Unknown History levetiracetam 1 tab PO BID 01/08/21 01/08/21 Unknown History lisinopril 1 tab PO DAILY 01/08/21 01/08/21 Unknown History melatonin 2 tab PO BEDTIME 01/08/21 01/08/21 Unknown History metoprolol succinate 1 tab PO QAM 01/08/21 01/08/21 Unknown History oxcarbazepine 1 tab PO BID 01/08/21 01/08/21 Unknown History pantoprazole 1 tab PO QAM 01/08/21 01/08/21 Unknown History simvastatin 1 tab PO QPM 01/08/21 01/08/21 Unknown History tizanidine 0.5 tab PO TID 01/08/21 01/08/21 Unknown History Physical Exam Vital Signs: Vital Signs: Last Vital Signs Temp 97.9 F 01/10/21 11:12 Pulse 67 01/10/21 11:12 Resp 22 H 01/10/21 11:12 BP 135/88 01/10/21 11:12 Pulse Ox 96 01/10/21 11:12 Body Mass Index 42.7 Const: General: cooperative, healthy appearing and comfortable Orientation/consciousness: oriented to person, oriented to place and oriented to time HENMT: Head: Yes normal to inspection Neck: Neck: Yes normal visual inspection Carotids: no bruits Chest: Chest palpation & inspection: normal inspection of the chest Resp: Effort & Inspection: normal respiratory effort and able to speak in complete sentences Auscultation: clear to auscultation bilaterally, no crackles, no rales, no rhonchi and no wheezes Cardio: Rate: regular rate Rhythm: regular rhythm Heart sounds: S1 normal heart sound present and S2 normal heart sound present Bruits: no carotid bruits Peripheral pulses: Peripheral pulses 2+ throughout GI: Inspection: Yes normal to inspection, Yes distended and Yes obesity Skin: Wounds: no wounds Hair: normal Neuro: General: oriented to person, oriented to place and oriented to time Cranial nerves: Yes CN's II-XII intact bilaterally and Yes Normal hearing present Cognition (Neuro): normal cognition Motor exam (neuro): 5/5 motor strength present throughout Extrem: Other: venous exam: No significant superficial varicosities or spider telangiectasias, minimal edema Foot discoloration. General: No clubbing, No cyanosis and No edema Psych: Appearance: grossly normal Mental Status: mental status grossly normal Speech and movement: Normal speech and movement present Results Labs Result diagrams: 01/09/21 04:10 01/09/21 04:10 Labs: Urine 01/08/21 Range/Units 12:53 Urine Color YELLOW Urine Appearance CLEAR Urine pH 6.0 (5.0-8.0) Ur Specific [place] 1.010 (1.005-1.025) Urine Protein NEG (NEG-TRACE) MG/DL Urine Glucose (UA) NEG (NEG) MG/DL All other labs normal. Assessment and Plan (1) Abdominal pain: Qualifiers: Abdominal location: generalized Qualified Code(s): R10.84 - Generalized abdominal pain Status: Acute (2) Raynaud disease: Qualifiers: Raynaud?s-associated gangrene presence: without gangrene Qualified Code(s): I73.00 - Raynaud's syndrome without gangrene Status: Acute Unclear etiology of abdominal discomfort. I did not appreciate any rebound or guarding. I did review his prior CT scan which did demonstrate minimal atherosclerotic disease within the aorta. There is no evidence of weight loss. He is able to do tolerated diet prior to this. In addition upon discussion with him he did have a bowel movement and his abdomen feels significantly better. No acute intervention indicated. Will await results of CT a. Very low suspicion of mesenteric ischemia. In terms of lower extremities I do believe the patient has an element of Raynaud's disease. He does have palpable pulses. There is some discoloration but no evidence of ulceration. At the current time would recommend hand foot protection reduction and of caffeine and as his overall medical condition improves I do hope that this improves as well. We will follow up with you. Will review results of CT angiogram. Very low suspicion of acute vascular issues. Thank you for this very interesting consultation Procedures Date of Service Date of Service: 01/10/21
[2021-01-10] MEDS: Morphine Sulfate 2 MG/ML CARTRIDGE 1 MG IVPUSH ×2 (15:44→23:51)
--- NOTE | 2021-01-10 16:26 | P.PNIM_ITS ---
Subjective Subjective Date of Service: 01/10/21 Interval History: abd pain/back pain Review of Systems Still has abdominal pain on the left lower side as well as back pain. Denies any nausea or vomiting, passing bowels. Denies any fevers chills Says abdominal pain is worsening this morning. Back pain inman she he says that he has on and off back pain from long time couple of years but it is also seems to be worsening Physical Exam Vital Signs: Vital Signs: Last Vital Signs Temp 97.9 F 01/10/21 15:32 Pulse 166 H 01/10/21 15:32 Resp 19 01/10/21 15:32 BP 149/71 H 01/10/21 15:32 Pulse Ox 97 01/10/21 15:32 Body Mass Index 42.7 Physical exam: Cvs: rrr, [id number] , no murmur res: clear to auscultation ,no rhonchii or wheezing abd: no rebound or guarding ,tenderness of left lower abd , no rebound or guarding, bs present. ext pulses present , no cyanosis neuro: axo3 , nonfocal. Objective Data Current Medications Generic Name Dose Route Start Last Admin Trade Name Freq PRN Reason Stop Dose Admin Acetaminophen 650 mg 01/08/21 16:41 01/10/21 10:32 Acetaminophen 325 Mg Tablet PO 650 mg Q6H PRN Administration Pain, Mild (Pain Scale 1-3) Al Hydroxide/Mg Hydroxide 15 ml 01/09/21 19:08 01/10/21 10:32 Magnesium Hydrox/Alum Hydrox 30 Ml Oral.Susp PO 15 ml Q6H PRN Administration Heartburn Albuterol Sulfate 2 puff 01/08/21 16:41 Albuterol Sulfate 90 Mcg 8 Gm Inhaler INHALE Q4H PRN shortness Atorvastatin Calcium 10 mg 01/08/21 21:00 01/09/21 21:12 Atorvastatin Calcium 10 Mg Tablet PO 10 mg BEDTIME VENITA Administration Dabigatran 150 mg 01/08/21 21:00 01/10/21 09:07 Dabigatran Etexilate Mesylate 150 Mg Capsule PO 150 mg BID [facility]ENITA Administration Docusate Sodium 100 mg 01/10/21 21:00 Docusate Sodium 100 Mg Capsule PO BEDTIME VENITA Escitalopram Oxalate 20 mg 01/09/21 09:00 01/10/21 08:45 Escitalopram Oxalate 20 Mg Tablet PO 20 mg DAILY [facility] Administration Furosemide 20 mg 01/10/21 09:00 01/10/21 08:45 Furosemide 20 Mg Tablet PO 20 mg DAILY [facility] Administration Protocol Insulin Human Lispro 0 unit 01/09/21 21:00 01/10/21 11:47 Insulin Lispro 100 Unit/Ml 3 Ml Vial SUBCUT Not Given QIDACHS [facility] Protocol Levetiracetam 1,000 mg 01/08/21 21:00 01/10/21 08:43 Levetiracetam 1,000 Mg Tablet PO 1,000 mg BID [facility]ENITA Administration Lidocaine 1 patch 01/10/21 12:45 01/10/21 14:12 Lidocaine 4 % Patch Adh..Patch TRANSDERMA 1 patch DAILY [facility] Administration Protocol Melatonin 9 mg 01/08/21 21:00 01/09/21 21:12 Melatonin 3 Mg Tablet PO 9 mg BEDTIME [facility]ENITA Administration Metoprolol Succinate 25 mg 01/08/21 16:45 01/10/21 08:42 Metoprolol Succinate Er 25 Mg Tab.Er.24h PO 25 mg DAILY [facility] Administration Protocol Morphine Sulfate 1 mg 01/10/21 12:17 01/10/21 15:44 Morphine Sulfate 2 Mg/Ml Cartridge IVPUSH 1 mg Q4H PRN Administration abd pain/back pain Omeprazole 20 mg 01/09/21 06:30 01/10/21 06:05 Omeprazole 20 Mg Capsule.Dr PO 20 mg DAILY@0630 [facility]ENITA Administration Ondansetron HCl 4 mg 01/08/21 16:41 Ondansetron Hcl 4 Mg/2 Ml Vial IVPUSH Q8H PRN Nausea and Vomiting Oxcarbazepine 300 mg 01/08/21 21:00 01/10/21 08:44 Oxcarbazepine 300 Mg Tablet PO 300 mg BID [facility]ENITA Administration Polyethylene Glycol 17 gm 01/10/21 12:30 01/10/21 13:01 Polyethylene Glycol 3350 17 Gm Powd.Pack PO Not Given BID [facility]ENITA Sodium Chloride 3 ml 01/09/21 00:00 01/10/21 15:33 0.9 % Sodium Chloride Flush 3 Ml Syringe IVFLUSH 3 ml QSHIFT [facility]ITA Administration Tizanidine HCl 2 mg 01/08/21 21:00 01/10/21 08:44 Tizanidine Hcl 4 Mg Tablet PO 2 mg TID VENITA Administration Valsartan 80 mg 01/10/21 09:00 01/10/21 08:43 Valsartan 80 Mg Tablet PO 80 mg BID VENITA Administration Protocol Labs CBC & Chem 7: 01/09/21 04:10 01/09/21 04:10 Microbiology Microbiology Results: Microbiology 01/08/21 12:13 Blood - Venous Blood Culture - Preliminary No growth after 48 hours. 01/08/21 11:30 Blood - Venous Blood Culture - Preliminary No growth after 48 hours. Assessment and Plan (1) Abdominal pain: Status: Acute (2) Acute exacerbation of CHF (congestive heart failure): Status: Acute Assessment and Plan: 65-year-old man admitted with heart failure with preserved ejection fraction. According to the patient's [employer] he has been out of his Lasix for approximately 1 week. 1.Heart failure with reduced ejection fraction. Echo showed EF 35-40% with severely dilated left atrium Seen and evaluated by cardio, seems euvolemic -Restart home lasix dose -daily weights, intake and output -Lisinopril replaced with Diovan 2.Left leg edema. Pain on palpation. LE venous doppler-no DVT, premedicate for pain 3.Toe discoloration. Likely secondary to Raynaud's phenomena Great pulses on both feet 4. aBD PAIN /Back pain: both worsenin intial abd ct -no acute abd finding Patient says he has keep having on and off abdominal pains considering on/off severe pain ? unlcear etiology , passing bowels , no leucocytosis or fever -we will check Ct abd with contrast ? mesentric ischemia, also has raynaud like phenomenon Hyponatremia. Seems chronic. Also likely secondary to congestion from heart failure. Trending up -Follow -oral diuresis Atrial fibrillation. -Pradaxa, metoprolol Seizure disorder. -seizure precautions -Keppra Normocytic anemia. No signs of bleeding. -trend Obesity. BMI 42.7 -discussed importance weight loss as this may contribute to worsening of other comorbidities. DVT prophylaxis with Pradaxa Full code Attending: Dr. Varner
[2021-01-10] MEDS: iohexoL 350 MG/ML 100 ML INFUS..BTL IV (16:48)
--- NOTE | 2021-01-10 17:13 | P.PNNP_ITS ---
Subjective Subjective Date of Service: 01/10/21 Interval history: Events noted. All recent data reviewed Physical Exam Vital Signs: Vital Signs: Last Vital Signs Temp 97.9 F 01/10/21 15:32 Pulse 166 H 01/10/21 15:32 Resp 19 01/10/21 15:32 BP 149/71 H 01/10/21 15:32 Pulse Ox 97 01/10/21 15:32 Body Mass Index 42.7 Const: Other: C/O abdominal pain Neck: Neck: Yes supple Resp: Auscultation: diminished lung sounds Cardio: Rate: regular rate GI: Palpation (GI): Soft to palpation Neuro: General: moves all extremities Objective Data Labs CBC & Chem 7: 01/09/21 04:10 01/09/21 04:10 Labs: Laboratory Results - last 24 hr 01/10/21 07:16 POC Glucose 70 Microbiology Microbiology Results: Microbiology 01/08/21 12:13 Blood - Venous Blood Culture - Preliminary No growth after 48 hours. 01/08/21 11:30 Blood - Venous Blood Culture - Preliminary No growth after 48 hours. Assessment & Plan Assessment and plan (1) Hyponatremia: Problem details: Hypervolemic Hypontremia 2 Gram Na restriction with fluid restriction Continue diuresis; Closely monitor lytes/renal function Shall closely follow up Status: Acute Time Spent With Patient Time: Total time spent is greater than 50% in coordination of care (as d ocumented) at patient's floor/unit and/or counseling patient: Procedures Date of Service Date of Service: 01/10/21
[2021-01-10 17:59] LABS: Alanine Aminotransferase 25 U/L (0-40); Albumin Level 3.8 g/dL (3.5-5.0); Alkaline Phosphatase 80 U/L (39-117); Aspartate Amino Transferase 25 U/L (5-37); Bilirubin Direct 0.2 mg/dL (0.0-0.5); Bilirubin Total 0.5 mg/dL (0.0-1.0); Lipase 23 U/L (8-78); Total Protein 6.4 g/dL (6.5-8.0)
[2021-01-10] MEDS: Melatonin 3 MG TABLET 9 MG PO (20:29)
[2021-01-10] MEDS: polyethylene glycoL 3350 17 GM POWD.PACK PO (20:30)
[2021-01-10] MEDS: Atorvastatin Calcium 10 MG TABLET PO (20:31)
[2021-01-10] MEDS: Docusate Sodium 100 MG CAPSULE PO (20:31)
--- NOTE | 2021-01-10 21:01 | PC.NURSE ---
pt telemetry showing aflutter, rate is bradycardic, dropping to 38 periodically. pacer pads in room as precaution.
[2021-01-11] VITALS (7 sets, daily range): BP systolic 115–182; BP diastolic 64–98; PULSE 54–82; RESP 16–19; TEMP 35.8–36.6; O2SAT 96–97
[2021-01-11] MEDS: Morphine Sulfate 2 MG/ML CARTRIDGE 1 MG IVPUSH ×2 (03:41→08:56)
[2021-01-11 05:32] LABS: Anion Gap 13 (12-20); Blood Urea Nitrogen 14 mg/dL (9-16); Calcium 8.9 mg/dL (8.4-10.2); Carbon Dioxide 30 mmol/L (22-29); Chloride 91 mmol/L (96-108); Creatinine Clr Calc Pharmacy 112.5; Estimated Glomerular Filt Rate > 60; Glucose Random 67 mg/dL (60-115); Potassium 4.5 mmol/L (3.3-5.1); Sodium 129 mmol/L (135-145)
[2021-01-11] MEDS: Omeprazole 20 MG CAPSULE.DR PO (06:14)
--- NOTE | 2021-01-11 07:50 | P.PNVS_ITS ---
Subjective Subjective Date of Service: 01/11/21 Patient reports: no new complaints and pain is less Interval history: Patient seen and examined. No interval issues overnight. He reports a headache this morning. Abdominal pain is decreased. He did report improvement after bowel movement yesterday. Of note he underwent CT angiogram yesterday Physical Exam Vital Signs: Vital Signs: Last Vital Signs Temp 97.4 F 01/11/21 07:32 Pulse 65 01/11/21 07:32 Resp 19 01/11/21 07:32 BP 166/86 H 01/11/21 07:32 Pulse Ox 97 01/11/21 07:32 Body Mass Index 42.7 Const: General: cooperative, healthy appearing and no acute distress Orientation/consciousness: oriented to person, oriented to place and oriented to time HENMT: Head: Yes normal to inspection Neck: Carotids: no bruits Chest: Chest palpation & inspection: normal inspection of the chest Resp: Effort & Inspection: normal respiratory effort and able to speak in complete sentences Auscultation: clear to auscultation bilaterally Cardio: Rate: regular rate Heart sounds: S1 normal heart sound present and S2 normal heart sound present GI: Inspection: Yes normal to inspection and Yes distended (No rebound or guarding very mild tenderness) Skin: General skin exam: no rashes or lesions noted Wounds: no wounds Neuro: General: oriented to person, oriented to place, oriented to time and CN 's II-XI intact bilaterally Extrem: General: Yes normal to inspection, Yes full ROM and Yes no clubbing, cyanosis or edema Psych: Appearance: grossly normal and well kempt Speech and movement: Normal speech and movement present Affect: normal affect Progress Note: A&P Assessment and plan (1) Abdominal pain: Status: Acute Assessment and Plan: Unclear etiology of abdominal pain. I did review CT angiogram report along with direct images. No evidence of mesenteric stenosis occlusion or embolus. It does not appear to be vascular in nature. In addition patient has palpable femoral pulses all the way down to dorsalis pedis. Would continue medical workup. We will follow on an as-needed basis. Thank you for allowing us to assist in his care. Fall Risk Details Current Medications: Current Medications Generic Name Dose Route Start Last Admin Trade Name Freq PRN Reason Stop Dose Admin Acetaminophen 650 mg 01/08/21 16:41 01/10/21 10:32 Acetaminophen 325 Mg Tablet PO 650 mg Q6H PRN Administration Pain, Mild (Pain Scale 1-3) Al Hydroxide/Mg Hydroxide 15 ml 01/09/21 19:08 01/10/21 10:32 Magnesium Hydrox/Alum Hydrox 30 Ml Oral.Susp PO 15 ml Q6H PRN Administration Heartburn Albuterol Sulfate 2 puff 01/08/21 16:41 Albuterol Sulfate 90 Mcg 8 Gm Inhaler INHALE Q4H PRN shortness Atorvastatin Calcium 10 mg 01/08/21 21:00 01/10/21 20:31 Atorvastatin Calcium 10 Mg Tablet PO 10 mg BEDTIME VENITA Administration Dabigatran 150 mg 01/08/21 21:00 01/10/21 20:30 Dabigatran Etexilate Mesylate 150 Mg Capsule PO 150 mg BID VENITA Administration Docusate Sodium 100 mg 01/10/21 21:00 01/10/21 20:31 Docusate Sodium 100 Mg Capsule PO 100 mg BEDTIME VENITA Administration Escitalopram Oxalate 20 mg 01/09/21 09:00 01/10/21 08:45 Escitalopram Oxalate 20 Mg Tablet PO 20 mg DAILY VENITA Administration Furosemide 20 mg 01/10/21 09:00 01/10/21 08:45 Furosemide 20 Mg Tablet PO 20 mg DAILY VENITA Administration Protocol Insulin Human Lispro 0 unit 01/09/21 21:00 01/11/21 07:32 Insulin Lispro 100 Unit/Ml 3 Ml Vial SUBCUT Not Given QIDACHS [facility] Protocol Levetiracetam 1,000 mg 01/08/21 21:00 01/10/21 20:30 Levetiracetam 1,000 Mg Tablet PO 1,000 mg BID VENITA Administration Lidocaine 1 patch 01/10/21 12:45 01/10/21 14:12 Lidocaine 4 % Patch Adh..Patch TRANSDERMA 1 patch DAILY VENITA Administration Protocol Melatonin 9 mg 01/08/21 21:00 01/10/21 20:29 Melatonin 3 Mg Tablet PO 9 mg BEDTIME VENITA Administration Metoprolol Succinate 25 mg 01/08/21 16:45 01/10/21 08:42 Metoprolol Succinate Er 25 Mg Tab.Er.24h PO 25 mg DAILY VENITA Administration Protocol Morphine Sulfate 1 mg 01/10/21 12:17 01/11/21 03:41 Morphine Sulfate 2 Mg/Ml Cartridge IVPUSH 1 mg Q4H PRN Administration abd pain/back pain Omeprazole 20 mg 01/09/21 06:30 01/11/21 06:14 Omeprazole 20 Mg Capsule. PO 20 mg DAILY@0630 VENITA Administration Ondansetron HCl 4 mg 01/08/21 16:41 Ondansetron Hcl 4 Mg/2 Ml Vial IVPUSH Q8H PRN Nausea and Vomiting Oxcarbazepine 300 mg 01/08/21 21:00 01/10/21 20:30 Oxcarbazepine 300 Mg Tablet PO 300 mg BID VENITA Administration Polyethylene Glycol 17 gm 01/10/21 12:30 01/10/21 20:30 Polyethylene Glycol 3350 17 Gm Powd.Pack PO 17 gm BID VENITA Administration Sodium Chloride 3 ml 01/09/21 00:00 01/10/21 20:31 0.9 % Sodium Chloride Flush 3 Ml Syringe IVFLUSH 3 ml QSHIFT VENITA Administration Tizanidine HCl 2 mg 01/08/21 21:00 01/10/21 20:30 Tizanidine Hcl 4 Mg Tablet PO 2 mg TID VENITA Administration Valsartan 80 mg 01/10/21 09:00 01/10/21 20:30 Valsartan 80 Mg Tablet PO 80 mg BID VENITA Administration Protocol Time Spent With Patient Time: Total time spent is greater than 50% in coordination of care (as documented) at patient's floor/unit and/or counseling patient: Time with patient: Greater than 35 minutes Procedures Date of Service Date of Service: 01/11/21
--- NOTE | 2021-01-11 07:52 | P.CDIC_ITS ---
CDI Concurrent Query Service Date: 01/11/21 Documentation Clarification: Please clarify if you are treating a proba ble/suspected/likely or confirmed: Cellulitis left foot (Treat, rule out)-does not have cellulitis , more likely has raynaud phenomena Please specify if known or undetermined Provider Response: Other Other Diagnosis: raynaud phenomenon PLEASE DO NOT DELETE/MODIFY EXISTING CONTENT Additional information is needed in order to code to the highest accuracy and appropriate Severity of Illness (SOI). Please clarify the information noted below in your progress notes and discharge summary. Risk Factors/Clinical Indicators/Treatments Ed: Clinical impression - Cellulitis left foot Left lower extremity edema, erythematous. Toe discoloration. Wheelchair bound. Left foot redness, consider Vascular consult. CDS: Dayanna Soares CCS, CDIS Contact Number: [phone] Please Review the information above and exercise your independent professional judgment in responding to the query. If you concur, pleas document in the PROGRESS NOTES and DISCHARGE SUMMARY. If you do not agree with the query, please document in the query above. THIS QUERY IS PART OF THE PERMANENT MEDICAL RECORD
[2021-01-11] MEDS: Metoprolol Succinate ER 25 MG TAB.ER.24H PO (08:45)
[2021-01-11] MEDS: Furosemide 20 MG TABLET PO (08:45)
[2021-01-11] MEDS: Valsartan 80 MG TABLET PO (08:45)
[2021-01-11] MEDS: Dabigatran Etexilate Mesylate 150 MG CAPSULE PO (08:45)
[2021-01-11] MEDS: OXcarbazepine 300 MG TABLET PO (08:46)
[2021-01-11] MEDS: Escitalopram Oxalate 20 MG TABLET PO (08:46)
[2021-01-11] MEDS: TiZANidine HCL 4 MG TABLET 2 MG PO ×2 (08:46→15:26)
[2021-01-11] MEDS: levETIRAcetam 1,000 MG TABLET 1000 MG PO (08:46)
[2021-01-11] MEDS: polyethylene glycoL 3350 17 GM POWD.PACK PO (08:47)
[2021-01-11] MEDS: Lidocaine 4 % Patch ADH..PATCH 1 PATCH TRANSDERMA (08:47)
[2021-01-11] MEDS: 0.9 % Sodium Chloride Flush 3 ML SYRINGE IVFLUSH ×2 (09:02→15:27)
--- NOTE | 2021-01-11 09:17 | HO.PM.IMPN ---
Subjective Subjective Date of Service: 01/11/21 Physical Exam Vital Signs: Vital Signs: Last Vital Signs Temp 97.4 F 01/11/21 07:32 Pulse 65 01/11/21 08:45 Resp 19 01/11/21 07:32 BP 166/86 H 01/11/21 08:45 Pulse Ox 97 01/11/21 07:32 Body Mass Index 42.7 Objective Data Current Medications Generic Name Dose Route Start Last Admin Trade Name Freq PRN Reason Stop Dose Admin Acetaminophen 650 mg 01/08/21 16:41 01/10/21 10:32 Acetaminophen 325 Mg Tablet PO 650 mg Q6H PRN Administration Pain, Mild (Pain Scale 1-3) Al Hydroxide/Mg Hydroxide 15 ml 01/09/21 19:08 01/10/21 10:32 Magnesium Hydrox/Alum Hydrox 30 Ml Oral.Susp PO 15 ml Q6H PRN Administration Heartburn Albuterol Sulfate 2 puff 01/08/21 16:41 Albuterol Sulfate 90 Mcg 8 Gm Inhaler INHALE Q4H PRN shortness Atorvastatin Calcium 10 mg 01/08/21 21:00 01/10/21 20:31 Atorvastatin Calcium 10 Mg Tablet PO 10 mg BEDTIME VENITA Administration Dabigatran 150 mg 01/08/21 21:00 01/11/21 08:45 Dabigatran Etexilate Mesylate 150 Mg Capsule PO 150 mg BID VENITA Administration Docusate Sodium 100 mg 01/10/21 21:00 01/10/21 20:31 Docusate Sodium 100 Mg Capsule PO 100 mg BEDTIME VENITA Administration Escitalopram Oxalate 20 mg 01/09/21 09:00 01/11/21 08:46 Escitalopram Oxalate 20 Mg Tablet PO 20 mg DAILY VENITA Administration Furosemide 20 mg 01/10/21 09:00 01/11/21 08:45 Furosemide 20 Mg Tablet PO 20 mg DAILY VENITA Administration Protocol Insulin Human Lispro 0 unit 01/09/21 21:00 01/11/21 07:32 Insulin Lispro 100 Unit/Ml 3 Ml Vial SUBCUT Not Given QIDACHS [facility] Protocol Levetiracetam 1,000 mg 01/08/21 21:00 01/11/21 08:46 Levetiracetam 1,000 Mg Tablet PO 1,000 mg BID VENITA Administration Lidocaine 1 patch 01/10/21 12:45 01/11/21 08:47 Lidocaine 4 % Patch Adh..Patch TRANSDERMA 1 patch DAILY VENITA Administration Protocol Melatonin 9 mg 01/08/21 21:00 01/10/21 20:29 Melatonin 3 Mg Tablet PO 9 mg BEDTIME VENITA Administration Metoprolol Succinate 25 mg 01/08/21 16:45 01/11/21 08:45 Metoprolol Succinate Er 25 Mg Tab.Er.24h PO 25 mg DAILY VENITA Administration Protocol Omeprazole 20 mg 01/09/21 06:30 01/11/21 06:14 Omeprazole 20 Mg Capsule.Dr PO 20 mg DAILY@0630 VENITA Administration Ondansetron HCl 4 mg 01/08/21 16:41 Ondansetron Hcl 4 Mg/2 Ml Vial IVPUSH Q8H PRN Nausea and Vomiting Oxcarbazepine 300 mg 01/08/21 21:00 01/11/21 08:46 Oxcarbazepine 300 Mg Tablet PO 300 mg BID VENITA Administration Oxycodone HCl 5 mg 01/11/21 09:16 Oxycodone Hcl Immed Release 5 Mg Tablet PO Q6H PRN BACK PAIN Polyethylene Glycol 17 gm 01/10/21 12:30 01/11/21 08:47 Polyethylene Glycol 3350 17 Gm Powd.Pack PO 17 gm BID VENITA Administration Sodium Chloride 3 ml 01/09/21 00:00 01/11/21 09:02 0.9 % Sodium Chloride Flush 3 Ml Syringe IVFLUSH 3 ml QSHIFT [facility] Administration Tizanidine HCl 2 mg 01/08/21 21:00 01/11/21 08:46 Tizanidine Hcl 4 Mg Tablet PO 2 mg TID VENITA Administration Valsartan 80 mg 01/10/21 09:00 01/11/21 08:45 Valsartan 80 Mg Tablet PO 80 mg BID VENITA Administration Protocol Labs CBC & Chem 7: 01/09/21 04:10 01/11/21 04:25 Microbiology Microbiology Results: Microbiology 01/08/21 12:13 Blood - Venous Blood Culture - Preliminary No growth after 48 hours. 01/08/21 11:30 Blood - Venous Blood Culture - Preliminary No growth after 48 hours.
--- NOTE | 2021-01-11 12:08 | MHC.CM.PN ---
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
--- NOTE | 2021-01-11 15:14 | MHC.CM.PN ---
pt dcd today chair van booked for 4:30 diamond picker,pt is active with both rafiq for msn and pt and steven for sn and b[facility] pts chemistry tutor shay was contacted [phone] and will meet pt at his home
[2021-01-11] MEDS: oxyCODONE HCl Immed Release 5 MG TABLET PO (15:25)
--- NOTE | 2021-01-11 16:22 | PM.DS ---
DS: Providers Provider Date of Service: 01/14/21 Date of admission: 01/08/21 16:41 Primary care physician: Unknown Physician Consults: 01/08/21 13:13 Consult to Nephrology Stat Consulting Provider: Alejandro Tanner Reason for consultation: acute on chronic hyponatremia Has provider been notified: Yes 01/08/21 16:41 Consult to Cardiology Routine Consulting Provider: Presley Shell Reason for consultation: HFpEF Has provider been notified: No Consult to Nephrology Routine Consulting Provider: Alejandro Smith Reason for consultation: hyponatremia, chf Has provider been notified: No 01/10/21 12:15 Consult to Vascular Surgery Routine Consulting Provider: Yayo Mari Reason for consultation: Abd and back pain , ? vascular ischemia 01/11/21 11:54 Consult to Care Team Routine Comment: Reason for consultation: depression DS: Diagnosis Discharge Diagnosis (1) Abdominal pain: Status: Acute DS: Medications Discharge Medications Home Medications: Home Medications Medication Instructions Recorded Confirmed albuterol sulfate 1 amp INHALATION Q6H 01/08/21 01/08/21 albuterol sulfate [ProAir HFA] 2 puff INHALATION Q4-6H PRN 01/08/21 01/08/21 citalopram 1 tab PO DAILY 01/08/21 01/08/21 dabigatran etexilate [Pradaxa] 1 cap PO BID 01/08/21 01/08/21 furosemide 20 mg PO 01/08/21 hydroxyzine HCl 10 mg PO 01/08/21 levetiracetam 1 tab PO BID 01/08/21 01/08/21 lisinopril 1 tab PO DAILY 01/08/21 01/08/21 melatonin 2 tab PO BEDTIME 01/08/21 01/08/21 metoprolol succinate 1 tab PO QAM 01/08/21 01/08/21 oxcarbazepine 1 tab PO BID 01/08/21 01/08/21 pantoprazole 1 tab PO QAM 01/08/21 01/08/21 simvastatin 1 tab PO QPM 01/08/21 01/08/21 tizanidine 0.5 tab PO TID 01/08/21 01/08/21 Previous Rx's Medication Instructions Recorded acetaminophen [Tylenol] 650 mg PO QID PRN #20 tab 01/11/21 docusate sodium 100 mg PO BEDTIME #30 cap 01/11/21 furosemide 20 mg PO DAILY #30 tab 01/11/21 polyethylene glycol 3350 17 g PO BID #30 ea 01/11/21 valsartan 80 mg PO BID #60 tab 01/11/21 DS: Summary Hospital Course Hospital Course: HPI:65 year old belarusian speaking man presented to the ER by EMS. According to the patient's HEAVY EQUIPMENT PLUMBING SUPERVISOR, the patient has been getting worse with headache, chest pain complaints more recently but today his HEAVY EQUIPMENT PLUMBING SUPERVISOR noticed that his face looked swollen and he was having trouble breathing. His HEAVY EQUIPMENT PLUMBING SUPERVISOR gotten dressed and checked his blood pressure and noted to be elevated at 207/138. HEAVY EQUIPMENT PLUMBING SUPERVISOR called EMS. His HEAVY EQUIPMENT PLUMBING SUPERVISOR also noticed that his left leg more swollen recently. Apparently the patient takes Lasix at home and his PC noticed that he had not had Lasix in his medication box for approximately 1 week. Patient was able to give some information but was mildly vague. Patient denied any chest pain did report some mild shortness of breath, left leg pain and swelling. Chest CT showed some multi lobar patchy airspace disease, patient had no fever, leukocytosis or cough. In the ER vital signs stable, sodium 123, BNP 1302, procalcitonin 0.02. In the he was given azithromycin, Rocephin, IV Lasix, vancomycin. He will be admitted for further management and treatment of acute congestive heart failure. Hospital Course problem section: Patient came with CHF exacerbation: Found to have low ejection fraction 35-40%: Started on IV diuresis and subsequently improved. Seen by Cardiology patient seems to be improving and patient was switched to p.o. Lasix upon discharge. In addition his lisinopril was changed to Diovan. Cardio will arrange their own appointment outpatient. Toe area discoloration is seems to be related to Raynaud phenomena: Patient was seen by vascular and patient subsequently follow-up out patiently with vascular a tomorrow. Hyponatremia thought to be chronic: Stable around sodium 129 range. Monitor BMP outpatient with PCP and further management as per PCP. As per the patient has chronic back pains since his stroke and also has degrenative changes in lower back ct scan: Patient is to follow-up outpatient as with PCP for pain management and may consider outpatient pain management evaluation. Above management discussed with the patient in detail length she understand and in agreement with the above plan, time spent 50 minutes and 50% time spent on counseling. Significant findings: As above. Procedures performed: None. Treatment and response: As above. Complications: None. Time Spent with Patient Time attestation: Total time spent providing and/or coordinating discharge services: Discharge coordination time: Greater than 30 minutes Quality: Stroke Does the patient have a stroke diagnosis?: No Physical Exam Vital Signs: Vital Signs: Last Vital Signs Temp 97.6 F 01/11/21 15:04 Pulse 80 01/11/21 15:04 Resp 17 01/11/21 15:04 BP 131/85 01/11/21 15:51 Pulse Ox 97 01/11/21 15:04 Body Mass Index 42.7 Physical exam: Constitutional: Not in acute distress. Cvs: rrr, [id number] , no murmur res: clear to auscultation ,no rhonchii or wheezing abd: no rebound or guarding , nontender, no rebound or guarding, bs present. ext pulses present , no cyanosis neuro: axo3 , nonfocal. DS: Data Data Completed and Pending Labs on day of discharge: Laboratory Results - last 24 hr 01/10/21 01/11/21 17:05 04:25 Sodium 129 L Potassium 4.5 Chloride 91 L Carbon Dioxide 30 H Anion Gap 13 BUN 14 Creatinine 0.82 Estim Creat Clear Calc 112.5 Estimated GFR > 60 Random Glucose 67 Calcium 8.9 Total Bilirubin 0.5 Direct Bilirubin 0.2 AST 25 ALT 25 Alkaline Phosphatase 80 Total Protein 6.4 L Albumin 3.8 Lipase 23 Preliminary micro results at discharge 01/08/21 12:13 Blood Culture - Preliminary Blood - Venous No growth after 48 hours. 01/08/21 11:30 Blood Culture - Preliminary Blood - Venous No growth after 48 hours. Discharge Plan Discharge Patient Disposition: Home Health Service Discharge Diagnosis: chf excerbation Referrals: jayant hiltona and gigi hiltona [Other] - 1 Week Adalberto Coleman MD [Physician] - 1 Week (follow up in 1 -2 weeks) Yayo Mari MD [Physician] - 1 Week (follow up with Dr Mari.) Physician,Unknown [Primary Care Provider] - 1 Week Discharge Medications: New polyethylene glycol 3350 17 gram Powder In Packet 17 g PO BID Qty: 30 RF: 0 docusate sodium 100 mg Capsule 100 mg PO BEDTIME Qty: 30 RF: 0 valsartan 80 mg Tablet 80 mg PO BID Qty: 60 RF: 0 furosemide 20 mg Tablet 20 mg PO DAILY Qty: 30 RF: 0 lidocaine 4 % adhesive patch,medicated 1 patch topical DAILY PRN (Reason: pain) Qty: 10 RF: 0 acetaminophen [Tylenol] 325 mg tablet 650 mg PO QID PRN (Reason: pain) Qty: 20 RF: 0 Continued albuterol sulfate 2.5 mg /3 mL (0.083 %) solution for nebulization 1 amp inhalation Q6H RF: 0 citalopram 40 mg tablet 1 tab PO DAILY RF: 0 tizanidine 4 mg tablet 0.5 tab PO TID RF: 0 oxcarbazepine 300 mg tablet 1 tab PO BID RF: 0 pantoprazole 40 mg tablet,delayed release (DR/EC) 1 tab PO QAM RF: 0 simvastatin 20 mg tablet 1 tab PO QPM RF: 0 metoprolol succinate 25 mg tablet extended release 24 hr 1 tab PO QAM RF: 0 albuterol sulfate [ProAir HFA] 90 mcg/actuation HFA aerosol inhaler 2 puff inhalation Q4-6H PRN (Reason: shortness) RF: 0 hydroxyzine HCl 10 mg tablet 10 mg PO RF: 0 levetiracetam 1,000 mg tablet 1 tab PO BID RF: 0 melatonin 5 mg tablet 2 tab PO BEDTIME RF: 0 Pradaxa 150 mg capsule 1 cap PO BID RF: 0 Discontinued lisinopril 20 mg tablet 1 tab PO DAILY RF: 0 furosemide 20 mg tablet 20 mg PO RF: 0 Discharge Orders: Discharge Order (Routine); Ordered 01/11/21 Ordered By: Coy Wilson Diet: advance to usual diet Activity on Discharge: As tolerated Stand Alone Forms: Patient Portal Discharge page Other Ambulatory Orders: Basic Metabolic Panel Fasting (Routine) Timeframe: 1 Week Facility: [facility] - Location: Laboratory Ordered By: Coy Wilson Complete Blood Count no Diff (Routine) Timeframe: 1 Week Facility: [facility] - Location: Laboratory Ordered By: Coy Wilson Care Plan Goals: Patient came with CHF exacerbation: Found to have low ejection fraction 35-40%: Started on IV diuresis and subsequently improved. Seen by Cardiology patient seems to be improving and patient was switched to p.o. Lasix upon discharge. In addition his lisinopril was changed to Diovan. Cardio will arrange their own appointment outpatient. Toe area discoloration is seems to be related to Raynaud phenomena: Patient was seen by vascular and patient subsequently follow-up out patiently with vascular a tomorrow. Hyponatremia thought to be chronic: Stable around sodium 129 range. Monitor BMP outpatient with PCP and further management as per PCP. As per the patient has chronic back pains since his stroke and also has degrenative changes in lower back ct scan: Patient is to follow-up outpatient as with PCP for pain management and may consider outpatient pain management evaluation. Health Concerns: As above. Plan of Treatment: As above. Assessment: As above. Discharge Date/Time: 01/11/21 17:08
--- NOTE | 2021-01-11 16:41 | PM.PNNEP ---
Subjective Subjective Date of Service: 01/11/21 Physical Exam Vital Signs: Vital Signs: Last Vital Signs Temp 97.6 F 01/11/21 15:04 Pulse 80 01/11/21 15:04 Resp 17 01/11/21 15:04 BP 131/85 01/11/21 15:51 Pulse Ox 97 01/11/21 15:04 Body Mass Index 42.7 Const: General: no acute distress Neck: Neck: Yes supple Resp: Auscultation: diminished lung sounds Cardio: Rate: regular rate GI: Palpation (GI): Soft to palpation Neuro: General: moves all extremities Objective Data Labs CBC & Chem 7: 01/09/21 04:10 01/11/21 04:25 Labs: Laboratory Results - last 24 hr 01/10/21 01/11/21 17:05 04:25 Sodium 129 L Potassium 4.5 Chloride 91 L Carbon Dioxide 30 H Anion Gap 13 BUN 14 Creatinine 0.82 Estim Creat Clear Calc 112.5 Estimated GFR > 60 Random Glucose 67 Calcium 8.9 Total Bilirubin 0.5 Direct Bilirubin 0.2 AST 25 ALT 25 Alkaline Phosphatase 80 Total Protein 6.4 L Albumin 3.8 Lipase 23 Microbiology Microbiology Results: Microbiology 01/08/21 12:13 Blood - Venous Blood Culture - Preliminary No growth after 48 hours. 01/08/21 11:30 Blood - Venous Blood Culture - Preliminary No growth after 48 hours. Assessment & Plan Assessment and plan (1) Hyponatremia: Problem details: Hypervolemic Hypontremia 2 Gram Na restriction with fluid restriction Continue diuresis; Concur with rest of current mgt Shall arrange close office follow up when D/Marc Status: Acute Time Spent With Patient Time: Total time spent is greater than 50% in coordination of care (as documented) at patient's floor/unit and/or counseling patient: Procedures Date of Service Date of Service: 01/11/21
--- NOTE | 2021-01-12 09:17 | MHC.CARE ---
CARE Team followed up [facility] Pt post discharge via phone cloth seconds sorter- Pt did not want to speak with t/w.
--- NOTE | 2021-01-12 13:51 | MHC.CARE ---
CARE Team spoke with Pts [facility] will reach out to PROPERTY CLAIM REP to resume behavioral health services.
== END 2021-01-11 17:08 | disposition home health service (06) | DRG 194 ==
LOC: HO.ED 14:10 → HO.EDOVER 16:49 → HO.IMC 17:58
PROVIDERS: Physician Assistant; Admitting Provider Nurse Practitioner Acute Care; Emergency Provider Emergency Medicine; PCP Internal Medicine; Visit Provider Internal Medicine
DX: I11.0 Hypertensive heart disease with heart failure (principal); E87.1 Hypo-osmolality and hyponatremia; Z79.01 Long term (current) use of anticoagulants; L03.116 Cellulitis of left lower limb; G40.909 Epilepsy, unspecified, not intractable, without status epilepticus; I48.20 Chronic atrial fibrillation, unspecified; I50.23 Acute on chronic systolic (congestive) heart failure; Z99.3 Dependence on wheelchair; I73.00 Raynaud's syndrome without gangrene; E66.9 Obesity, unspecified; Z68.41 Body mass index [BMI] 40.0-44.9, adult; Z20.822 Contact with and (suspected) exposure to COVID-19; Z79.899 Other long term (current) drug therapy
CPT/HCPCS: 0241U; 36415; 71045; 71250; 73620; 74174; 74176; 80048; 80076; 81001; 82272; 82947; 83605; 83690; 83735; 83880; 83930; 83935; 84145; 84300; 84484; 85025; 85610; 85730; 87040; 93005; 93306; 93971; 94640; 96365; 96366; 96368; 96375; 97162; 99285; 99291; J0456; J0696; J1940; J2270; J3370; Q9957; Q9967

== ENCOUNTER 2021-02-10 20:37 | Inpatient (IN) | payer MEDICAID, SELFPAY ==
--- NOTE | ~2021-02-10 | CT_ITS ---
EXAMINATION: CT ABDOMEN AND PELVIS WITHOUT CONTRAST CLINICAL INFORMATION: Abdominal pain COMPARISON: 01/10/2021 TECHNIQUE: Multidetector volumetric imaging was performed from the superior aspect of the liver through the pubic symphysis. Sagittal and coronal reformatted images were obtained on the technologist's workstation. This CT examination was performed using dose optimization techniques as appropriate, variously including the following: *Automated exposure control *Adjustment of mA and/or kV according to patient size (this includes techniques or standardized protocols for targeted exams where dose is matched to indication/reason for exam; i.e. extremities or head) *Use of iterative reconstruction technique DLP: 924 mGy-cm FINDINGS: LUNG BASES: Cardiomegaly. Lungs are clear. LIVER, GALLBLADDER, AND BILIARY TREE: The liver is normal in size, shape, and attenuation. No focal hepatic lesion or biliary ductal dilatation is present. Gallbladder unremarkable. PANCREAS: Unremarkable. SPLEEN: Unremarkable. ADRENAL GLANDS: Unremarkable. KIDNEYS AND URETERS: Few scattered bilateral renal cortical infarct redemonstrated. No hydronephrosis No, urinary calculi or hydroureter. No perinephric stranding. BLADDER: Decompressed by Pacheco catheter. GASTROINTESTINAL TRACT: The small and large bowel are unremarkable. Moderate stool present within the rectum, without associated inflammatory changes. The appendix is unremarkable. ABDOMINAL WALL: Diastases of the rectus abdominis associated with a small umbilical hernia containing a nonobstructed short segment of small bowel. LYMPH NODES: Normal. VASCULAR: Unremarkable. PELVIC VISCERA: Unremarkable. OSSEOUS STRUCTURES: No acute or suspicious osseous abnormalities. CT/CT abdomen pelvis wo con IMPRESSION: No acute findings within the abdomen or pelvis to explain the patient's symptomatology. Chronic findings as above.
--- NOTE | ~2021-02-10 | US_ITS ---
EXAMINATION: US LOWER EXTREMITY DOPPLER, LEFT CLINICAL INFORMATION: Discolored toes COMPARISON: None TECHNIQUE: Dynamic, real-time grayscale and color Doppler sonographic evaluation of the left lower extremity arterial vasculature was performed. FINDINGS: Examination limited by body habitus and extensive lower extremity edema. LEFT (PSV/Waveform): * PFA: 106cm/s, biphasic * INTERLOCKING PAVEMENT INSTALLER: 131 cm/s, triphasic * Proximal SFA: 143 cm/s, biphasic. * Mid SFA: 75 cm/s, biphasic. * Distal SFA: 64 cm/s, biphasic. * Popliteal: Not seen * SQUEEGEE TENDER: 81 cm/s, biphasic * Peroneal: 32 cm/s, monophasic * DP: 10 cm/s, monophasic US/US arterial duplex LE LT IMPRESSION: Limited exam. No arterial occlusion evident.
--- NOTE | ~2021-02-10 | XR_ITS ---
EXAMINATION: XR CHEST CLINICAL INFORMATION: Shortness of breath COMPARISON: Chest x-ray 01/08/2021. CT chest 01/08/2021 TECHNIQUE: Frontal portable view of the chest was obtained. 10:27 PM FINDINGS: Previously seen patchy bilateral airspace opacities have substantially improved. Subtle residual opacities likely still present. No pulmonary vascular congestion or consolidative airspace opacity. No pleural effusion. Cardiac and mediastinal contours are unchanged. XR/XR chest 1V IMPRESSION: Resolving bilateral airspace opacities since prior chest x-ray 01/08/2021.
[2021-02-10 20:51] VITALS: BP 109/58; BP 153/85; PULSE 77; RESP 20; TEMP 36.9; O2SAT 93; BMI 40.2
--- NOTE | 2021-02-10 22:01 | ECG_ITS ---
Test Reason : SOB Blood Pressure : / mmHG Vent. Rate : 074 BPM Atrial Rate : 394 BPM P-R Int : 000 ms QRS Dur : 096 ms QT Int : 372 ms P-R-T Axes : 000 016 064 degrees QTc Int : 412 ms Atrial fibrillation Low voltage QRS Possible Inferior infarct , age undetermined Cannot rule out Anterior infarct (cited on or before 11-JUN-2011) Abnormal ECG When compared with ECG of 08-JAN-2021 10:58, No significant changes seen Referred By: Criss Billy Electronically Signed By:PRUDENCE CULVER
--- NOTE | 2021-02-10 22:03 | ED.GENADULT ---
HPI - General Adult General Chief complaint: Abdominal Pain Stated complaint: sob abd pain Time Seen by Provider: 02/10/21 22:01 Source: patient Mode of arrival: EMS History of Present Illness HPI narrative: 65-year-old male, poor historian, sites that he has some ?heart condition, I condition? but denies history of diabetes and is brought in by EMS for complaints of both abdominal distension and more specifically states that he has not urinated since yesterday. Patient also describes ?head pain?, lower extremity pain and shortness of breath that started this morning. Related Data Home Medications Medication Instructions Recorded Confirmed Pradaxa 1 cap PO BID 01/08/21 01/08/21 albuterol sulfate 1 amp INHALATION Q6H 01/08/21 01/08/21 albuterol sulfate [ProAir HFA] 2 puff INHALATION Q4-6H PRN 01/08/21 01/08/21 citalopram 1 tab PO DAILY 01/08/21 01/08/21 hydroxyzine HCl 10 mg PO 01/08/21 levetiracetam 1 tab PO BID 01/08/21 01/08/21 melatonin 2 tab PO BEDTIME 01/08/21 01/08/21 metoprolol succinate 1 tab PO QAM 01/08/21 01/08/21 oxcarbazepine 1 tab PO BID 01/08/21 01/08/21 pantoprazole 1 tab PO QAM 01/08/21 01/08/21 simvastatin 1 tab PO QPM 01/08/21 01/08/21 tizanidine 0.5 tab PO TID 01/08/21 01/08/21 Previous Rx's Medication Instructions Recorded acetaminophen [Tylenol] 650 mg PO QID PRN #20 tab 01/11/21 docusate sodium 100 mg PO BEDTIME #30 cap 01/11/21 furosemide 20 mg PO DAILY #30 tab 01/11/21 lidocaine 1 patch TOPICAL DAILY PRN #10 ea 01/11/21 polyethylene glycol 3350 17 g PO BID #30 ea 01/11/21 valsartan 80 mg PO BID #60 tab 01/11/21 Allergies Allergy/AdvReac Type Severity Reaction Status Date / Time No Known Allergies Allergy Verified 11/23/20 14:28 Review of Systems Review of Systems: Pertinent positives and negatives in the HPI and ROS otherwise difficult to obtain. PMFSH Past Medical History Source: nursing notes reviewed Medical History Bradycardia Cardiomyopathy Chronic atrial fibrillation Chronic HFrEF (heart failure with reduced ejection fraction) CVA (cerebral vascular accident) HTN (hypertension) Obesity Family History Family History Father Emphysema lung Mother Cardiovascular disease Social History Social History Household Members: Caregiver Housing: House Do you presently have visiting nurse or other home services: Yes (OPHTHALMIC AIDE) Unable to assess alcohol history related to: Unknown Alcohol intake: never Second Hand Smoke Exposure: No Advance Directives: Yes Advance Directives on File: Yes Advance Directives Date on File: 11/23/20 service: No Current occupational status: disabled Physical Exam Vital Signs: Vital Signs: Last Vital Signs Temp 98.4 F 02/10/21 20:51 Pulse 79 02/11/21 00:00 Resp 20 02/11/21 00:00 BP 112/58 L 02/11/21 00:00 Pulse Ox 97 02/11/21 00:00 Body Mass Index 40.2 VITAL SIGNS: Reviewed. GENERAL: Well developed, well nourished, in no acute distress. HEAD: Normocephalic/atraumatic EYES: PERRLA, EOMI EARS: Ext canals without abnormality NOSE: Nares patent bilateral OROPHARYNX: no oral lesions noted, posterior pharynx clear , dry mucosa LUNGS: Bibasilar decreased breath sounds, expiratory wheezing noted with rales. SpO2<93> on 3 L nasal cannula CARDIOVASCULAR: IRR/IRR without noted murmurs, no JVD or lower extremity 1+ pitting edema. ABDOMEN: Obese, Soft, non-tender, non-distended with bowel sounds, exam limited by body habitus but firmness noted in the suprapubic area MUSCULOSKELETAL: No tenderness, deformities, or effusions noted on gross inspection. EXTREMITIES: Mild cyanosis of the left 1/2/3 toes but palpable DP/PT SKIN: Inspection of the skin reveals no rashes NEUROLOGIC: Drowsy, baseline deficits secondary to prior CVA Course Course Course Narrative: This is a 65-year-old male with history and clinical presentation suspicious for urinary retention and suspect CHF exacerbation. Review of all investigations suggestive of CHF exacerbation with concomitant mild asthma as there is no evidence CO2 retention. Patient also has SHAVON. This case was discussed with inpatient hospitalist team who is agreeable for admission. Medical Decision Making Lab Data Result diagrams: 02/10/21 22:25 02/10/21 22:25 Labs: Lab Results 02/10/21 02/10/21 02/10/21 Range/Units 22:25 22:25 22:25 WBC 11.8 H (4.8-10.8) X10*3/uL RBC 3.97 L (4.60-5.80) X10*6/uL Hgb 10.4 L (14.0-18.0) g/dl Hct 33.0 L (42-52) % MCV 83.1 (80-98) fL MCH 26.2 L (27.0-33.0) pg MCHC 31.5 (31.0-36.0) g/dl RDW 16.4 H (11.0-16.0) % Plt Count 230 D (160-400) X10*3/uL MPV 9.4 (9.4-12.4) fL Immature Gran % (Auto) 0.3 (0.0-0.4) % Neut % (Auto) 80.3 H (45-73) % Lymph % (Auto) 9.0 L (20-40) % [place] % (Auto) 10.1 (2-11) % Eos % (Auto) 0.1 (0-4) % Baso % (Auto) 0.2 (0-2) % Lymph # (Auto) 1.1 L (1.2-4.9) X10*3/uL [place] # (Auto) 1.2 (0.1-1.2) X10*3/uL Eos # (Auto) 0.0 (0.0-0.4) X10*3/uL Baso # (Auto) 0.0 (0.0-0.2) X10*3/uL Abs Immat Gran (auto) 0.03 (0.00-0.03) X10*3/uL Absolute Neuts (auto) 9.5 H (2.0-8.3) X10*3/uL Absolute Nucleated RBC 0.000 (0.0-0.012) X10*3/uL Nucleated RBC % (auto) 0.0 (0.0-0.2) /100WBC PT 16.3 H D (10.8-13.0) SEC INR 1.4 H (0.9-1.1) VBG pH (7.32-7.43) VBG pCO2 mmHg VBG pO2 mmHg VBG HCO3 (22-26) mmol/L VBG O2 Saturation % VBG Base Excess mmol/L Sodium 126 L (135-145) mmol/L Potassium 5.7 H D (3.3-5.1) mmol/L Chloride 90 L (96-108) mmol/L Carbon Dioxide 26 (22-29) mmol/L Anion Gap 16 (12-20) BUN 17 H (9-16) mg/dL Creatinine 1.87 H (0.5-1.4) mg/dL Estim Creat Clear Calc 50.9 Estimated GFR 37 POC Glucose (60-115) mg/dL Random Glucose 101 D (60-115) mg/dL Lactic Acid (0.5-2.0) mmol/L Calcium 9.7 D (8.4-10.2) mg/dL Magnesium (1.6-2.6) mg/dL Total Bilirubin 0.4 (0.0-1.0) mg/dL AST 35 (5-37) U/L ALT 22 (0-40) U/L Alkaline Phosphatase 88 (39-117) U/L Troponin I High Sens (<3.5-35.0) ng/L B-Natriuretic Peptide (<100) pg/mL Total Protein 7.8 D (6.5-8.0) g/dL Albumin 4.7 D (3.5-5.0) g/dL Lipase 14 (8-78) U/L Urine Color Urine Appearance Urine pH (5.0-8.0) Ur Specific [place] (1.005-1.025) Urine Protein (NEG-TRACE) MG/DL Urine Glucose (UA) (NEG) MG/DL Urine Ketones (NEG) MG/DL Urine Blood (NEG) Urine Nitrite (NEG) Ur Leukocyte Esterase (NEG) COVID-19 (GIOVANA) (Negative) COVID-19 Clin Com 02/10/21 02/10/21 02/10/21 Range/Units 22:25 22:25 22:25 WBC (4.8-10.8) X10*3/uL RBC (4.60-5.80) X10*6/uL Hgb (14.0-18.0) g/dl Hct (42-52) % MCV (80-98) fL MCH (27.0-33.0) pg MCHC (31.0-36.0) g/dl RDW (11.0-16.0) % Plt Count (160-400) X10*3/uL MPV (9.4-12.4) fL Immature Gran % (Auto) (0.0-0.4) % Neut % (Auto) (45-73) % Lymph % (Auto) (20-40) % Chester % (Auto) (2-11) % Eos % (Auto) (0-4) % Baso % (Auto) (0-2) % Lymph # (Auto) (1.2-4.9) X10*3/uL [place] # (Auto) (0.1-1.2) X10*3/uL Eos # (Auto) (0.0-0.4) X10*3/uL Baso # (Auto) (0.0-0.2) X10*3/uL Abs Immat Gran (auto) (0.00-0.03) X10*3/uL Absolute Neuts (auto) (2.0-8.3) X10*3/uL Absolute Nucleated RBC (0.0-0.012) X10*3/uL Nucleated RBC % (auto) (0.0-0.2) /100WBC PT (10.8-13.0) SEC INR (0.9-1.1) VBG pH (7.32-7.43) VBG pCO2 mmHg VBG pO2 mmHg VBG HCO3 (22-26) mmol/L VBG O2 Saturation % VBG Base Excess mmol/L Sodium (135-145) mmol/L Potassium (3.3-5.1) mmol/L Chloride (96-108) mmol/L Carbon Dioxide (22-29) mmol/L Anion Gap (12-20) BUN (9-16) mg/dL Creatinine (0.5-1.4) mg/dL Estim Creat Clear Calc Estimated GFR POC Glucose (60-115) mg/dL Random Glucose (60-115) mg/dL Lactic Acid 0.8 (0.5-2.0) mmol/L Calcium (8.4-10.2) mg/dL Magnesium 1.9 (1.6-2.6) mg/dL Total Bilirubin (0.0-1.0) mg/dL AST (5-37) U/L ALT (0-40) U/L Alkaline Phosphatase (39-117) U/L Troponin I High Sens 30.7 (<3.5-35.0) ng/L B-Natriuretic Peptide 484 H (<100) pg/mL Total Protein (6.5-8.0) g/dL Albumin (3.5-5.0) g/dL Lipase (8-78) U/L Urine Color Urine Appearance Urine pH (5.0-8.0) Ur Specific [place] (1.005-1.025) Urine Protein (NEG-TRACE) MG/DL Urine Glucose (UA) (NEG) MG/DL Urine Ketones (NEG) MG/DL Urine Blood (NEG) Urine Nitrite (NEG) Ur Leukocyte Esterase (NEG) COVID-19 (GIOVANA) (Negative) COVID-19 Clin Com 02/10/21 02/10/21 02/10/21 Range/Units 22:25 22:29 23:21 WBC (4.8-10.8) X10*3/uL RBC (4.60-5.80) X10*6/uL Hgb (14.0-18.0) g/dl Hct (42-52) % MCV (80-98) fL MCH (27.0-33.0) pg MCHC (31.0-36.0) g/dl RDW (11.0-16.0) % Plt Count (160-400) X10*3/uL MPV (9.4-12.4) fL Immature Gran % (Auto) (0.0-0.4) % Neut % (Auto) (45-73) % Lymph % (Auto) (20-40) % Chester % (Auto) (2-11) % Eos % (Auto) (0-4) % Baso % (Auto) (0-2) % Lymph # (Auto) (1.2-4.9) X10*3/uL [place] # (Auto) (0.1-1.2) X10*3/uL Eos # (Auto) (0.0-0.4) X10*3/uL Baso # (Auto) (0.0-0.2) X10*3/uL Abs Immat Gran (auto) (0.00-0.03) X10*3/uL Absolute Neuts (auto) (2.0-8.3) X10*3/uL Absolute Nucleated RBC (0.0-0.012) X10*3/uL Nucleated RBC % (auto) (0.0-0.2) /100WBC PT (10.8-13.0) SEC INR (0.9-1.1) VBG pH 7.38 (7.32-7.43) VBG pCO2 41 mmHg VBG pO2 180 mmHg VBG HCO3 24 (22-26) mmol/L VBG O2 Saturation 99.0 % VBG Base Excess -0.4 mmol/L Sodium (135-145) mmol/L Potassium (3.3-5.1) mmol/L Chloride (96-108) mmol/L Carbon Dioxide (22-29) mmol/L Anion Gap (12-20) BUN (9-16) mg/dL Creatinine (0.5-1.4) mg/dL Estim Creat Clear Calc Estimated GFR POC Glucose 119 H (60-115) mg/dL Random Glucose (60-115) mg/dL Lactic Acid (0.5-2.0) mmol/L Calcium (8.4-10.2) mg/dL Magnesium (1.6-2.6) mg/dL Total Bilirubin (0.0-1.0) mg/dL AST (5-37) U/L ALT (0-40) U/L Alkaline Phosphatase (39-117) U/L Troponin I High Sens (<3.5-35.0) ng/L B-Natriuretic Peptide (<100) pg/mL Total Protein (6.5-8.0) g/dL Albumin (3.5-5.0) g/dL Lipase (8-78) U/L Urine Color Urine Appearance Urine pH (5.0-8.0) Ur Specific [place] (1.005-1.025) Urine Protein (NEG-TRACE) MG/DL Urine Glucose (UA) (NEG) MG/DL Urine Ketones (NEG) MG/DL Urine Blood (NEG) Urine Nitrite (NEG) Ur Leukocyte Esterase (NEG) COVID-19 (GIOVANA) Negative (Negative) COVID-19 Clin Com See Note 02/10/21 Range/Units 23:31 WBC (4.8-10.8) X10*3/uL RBC (4.60-5.80) X10*6/uL Hgb (14.0-18.0) g/dl Hct (42-52) % MCV (80-98) fL MCH (27.0-33.0) pg MCHC (31.0-36.0) g/dl RDW (11.0-16.0) % Plt Count (160-400) X10*3/uL MPV (9.4-12.4) fL Immature Gran % (Auto) (0.0-0.4) % Neut % (Auto) (45-73) % Lymph % (Auto) (20-40) % [place] % (Auto) (2-11) % Eos % (Auto) (0-4) % Baso % (Auto) (0-2) % Lymph # (Auto) (1.2-4.9) X10*3/uL [place] # (Auto) (0.1-1.2) X10*3/uL Eos # (Auto) (0.0-0.4) X10*3/uL Baso # (Auto) (0.0-0.2) X10*3/uL Abs Immat Gran (auto) (0.00-0.03) X10*3/uL Absolute Neuts (auto) (2.0-8.3) X10*3/uL Absolute Nucleated RBC (0.0-0.012) X10*3/uL Nucleated RBC % (auto) (0.0-0.2) /100WBC PT (10.8-13.0) SEC INR (0.9-1.1) VBG pH (7.32-7.43) VBG pCO2 mmHg VBG pO2 mmHg VBG HCO3 (22-26) mmol/L VBG O2 Saturation % VBG Base Excess mmol/L Sodium (135-145) mmol/L Potassium (3.3-5.1) mmol/L Chloride (96-108) mmol/L Carbon Dioxide (22-29) mmol/L Anion Gap (12-20) BUN (9-16) mg/dL Creatinine (0.5-1.4) mg/dL Estim Creat Clear Calc Estimated GFR POC Glucose (60-115) mg/dL Random Glucose (60-115) mg/dL Lactic Acid (0.5-2.0) mmol/L Calcium (8.4-10.2) mg/dL Magnesium (1.6-2.6) mg/dL Total Bilirubin (0.0-1.0) mg/dL AST (5-37) U/L ALT (0-40) U/L Alkaline Phosphatase (39-117) U/L Troponin I High Sens (<3.5-35.0) ng/L B-Natriuretic Peptide (<100) pg/mL Total Protein (6.5-8.0) g/dL Albumin (3.5-5.0) g/dL Lipase (8-78) U/L Urine Color YELLOW Urine Appearance CLEAR Urine pH 6.0 (5.0-8.0) Ur Specific [place] <= 1.005 (1.005-1.025) Urine Protein NEG (NEG-TRACE) MG/DL Urine Glucose (UA) NEG (NEG) MG/DL Urine Ketones NEG (NEG) MG/DL Urine Blood NEG (NEG) Urine Nitrite NEG (NEG) Ur Leukocyte Esterase NEG (NEG) COVID-19 (GIOVANA) (Negative) COVID-19 Clin Com ECG Data Attestation: I personally reviewed and interpreted this ECG as follows: Prior ECG tracings: available for review (01/08/2021 no acute changes on comparison) Interpretation: Atrial fibrillation, HR-74, no evidence of acute ischemia, QRS/QTC are within normal limits. Discharge Plan Discharge Clinical Impression: CHF exacerbation, SHAVON (acute kidney injury) Patient Disposition: Admitted As Inpatient
[2021-02-10 22:34] LABS: MANUAL DIFF FLAG NO
[2021-02-10 22:35] LABS: Basophils Percent Auto 0.2 % (0-2); Eosinophils Percent Auto 0.1 % (0-4); Hemoglobin 10.4 g/dl (14.0-18.0); Imm Gran Abs Auto 0.03 X10*3/uL (0.00-0.03); Imm Gran Pct Auto 0.3 % (0.0-0.4); Lymphocytes Absolute Auto 1.1 X10*3/uL (1.2-4.9); Mean Corpuscular HGB Conc 31.5 g/dl (31.0-36.0); Mean Corpuscular Hemoglobin 26.2 pg (27.0-33.0); Mean Corpuscular Volume 83.1 fL (80-98); Mean Platelet Volume 9.4 fL (9.4-12.4); Monocytes Absolute Auto 1.2 X10*3/uL (0.1-1.2); Monocytes Percent Auto 10.1 % (2-11); Neutrophils Absolute Auto 9.5 X10*3/uL (2.0-8.3); Neutrophils Percent Auto 80.3 % (45-73); Platelet Count 230 X10*3/uL (160-400); Red Blood Count 3.97 X10*6/uL (4.60-5.80); Red Cell Distribution Width 16.4 % (11.0-16.0); White Blood Count 11.8 X10*3/uL (4.8-10.8)
--- NOTE | 2021-02-10 22:36 | PC.NURSE ---
PT VIA AMBULANCE FROM HOME WITH C/O SOB, ABD DISTENTION, LOWER EXT PAIN AND SWELLING. PT IS ETHIOPIAN SPEAKING. MD AT BEDSIDE. PT HAS ARRIVED WITH HL TO RIGHT HAND. PT HAS LEFT SIDED WEAKNESS D/T PREVIOUS STROKE. PT AWAKE AND FALLS TO SLEEP. PT IS EASILY AROUSABLE. PT ON MONITOR WITH HR 84, PT ON 3L NC WITH PO 95%. PT IS NOT ON RA AT HOME. LABS DRAWN TO LAB. BLADDER SCAN OBTAINED APPROX 38ML. DR. GARCIA AWARE. WILL CONTINUE TO MONITOR PT.
[2021-02-10 22:37] LABS: VBG Base Excess -0.4 mmol/L; VBG HCO3 24 mmol/L (22-26); VBG pCO2 41 mmHg; VBG pH 7.38 (7.32-7.43); VBG pO2 180 mmHg
[2021-02-10 22:38] LABS: Venous Blood Gas Refer to POC result
[2021-02-10 22:50] LABS: COVID-19 Test Negative (Negative)
[2021-02-10 22:54] LABS: INTERNATIONAL NORM RATIO 1.4 (0.9-1.1); Prothrombin Time 16.3 SEC (10.8-13.0)
[2021-02-10 23:02] LABS: Lactic Acid 0.8 mmol/L (0.5-2.0)
[2021-02-10 23:07] LABS: Magnesium 1.9 mg/dL (1.6-2.6)
[2021-02-10 23:09] LABS: Alanine Aminotransferase 22 U/L (0-40); Albumin Level 4.7 g/dL (3.5-5.0); Alkaline Phosphatase 88 U/L (39-117); Anion Gap 16 (12-20); Aspartate Amino Transferase 35 U/L (5-37); Bilirubin Total 0.4 mg/dL (0.0-1.0); Blood Urea Nitrogen 17 mg/dL (9-16); Calcium 9.7 mg/dL (8.4-10.2); Carbon Dioxide 26 mmol/L (22-29); Chloride 90 mmol/L (96-108); Creatinine Clr Calc Pharmacy 50.9; Estimated Glomerular Filt Rate 37; Glucose Random 101 mg/dL (60-115); Lipase 14 U/L (8-78); Potassium 5.7 mmol/L (3.3-5.1); Sodium 126 mmol/L (135-145); Total Protein 7.8 g/dL (6.5-8.0)
[2021-02-10 23:12] LABS: Troponin-I High Sensitivity 30.7 ng/L (<3.5-35.0)
[2021-02-10 23:24] LABS: Glucose, Whole Blood 119 mg/dL (60-115)
[2021-02-10 23:39] LABS: Glucose Urine UA NEG (NEG); Leukocyte Esterase Urine NEG (NEG); Nitrite Urine NEG (NEG); Specific Gravity - Urine <= 1.005 (1.005-1.025); Urine Blood NEG (NEG); Urine Ketones NEG (NEG); Urine Protein NEG (NEG-TRACE)
--- NOTE | 2021-02-10 23:39 | PC.NURSE ---
POC- 119, PT IS STRAIGHT CATH FOR URINE SAMPLE. PT TOLERATED WELL. WILL CONTINUE TO MONITOR PT.
[2021-02-10 23:41] LABS: Appearance Urine CLEAR; Color Urine YELLOW
[2021-02-11] VITALS (17 sets, daily range): BP systolic 99–135; BP diastolic 58–92; PULSE 47–86; RESP 12–24; TEMP 36.2–37.6; O2SAT 80–100
[2021-02-11 00:20] LABS: B Type Natriuretic Peptide 484 pg/mL (<100)
[2021-02-11] MEDS: Furosemide 20 MG/2 ML VIAL IVPUSH ×2 (00:20→17:44)
[2021-02-11] MEDS: Albuterol Sulfate (0.083%) 2.5 MG/3 ML VIAL.NEB 5 MG INHALE (01:30)
--- NOTE | 2021-02-11 02:42 | PC.NURSE ---
PT MEDICATED WITH LASIX IVP AND JARVIS INSERTED W/O DIFFICULTY. NO CHANGE IN PT'S CONDITION.
--- NOTE | 2021-02-11 02:43 | PC.NURSE ---
PT RESTING IN STRETCHER ON MONITOR IN NAD. HOSPITALIST IN ROOM AT BEDSIDE AND OBTAINING YAMILE LE DISTAL PULSES. JARVIS DRAINING CLEAR YELLOW URINE. WILL CONTINUE TO MONITOR PT,.
--- NOTE | 2021-02-11 03:03 | PC.NURSE ---
pt remains in a-fib on monitor with hr of 68. Pt resting in stretcher. dotson draining clear yellow urine. will continue to monitor pt.
--- NOTE | 2021-02-11 05:39 | P.HPHOSP_ITS ---
History of Present Illness Date of Service: 02/11/21 Chief Complaint: sob 65-year-old male with past medical history of heart failure with reduced ejection fraction, HTN, CVA, chronic AFib, asthma, Raynaud's phenomenon, chronic anemia, chronic hyponatremia who presents to the hospital with complaints of shortness of breath. Patient reports that he started having shortness of breath this morning, associated with wheezing, no cough or sputum production, no orthopnea or PND, no lower extremity edema. He reports no fever or chills. He also complaining of abdominal pain that is worse on the right lower abdomen, 06/04, nonradiating, associated with nausea vomiting couple of times today, the abdominal pain also started this morning. He has been severely constipated. Denies any urinary symptoms. No chest pain. No palpitations. On arrival to the ED patient hemodynamically stable with no significant abnormal vitals Labs are significant for WBC count of 11.8, hemoglobin of 10.4, sodium of 126 with last sodium of 129 in January 11, potassium 5.7, BUN of 17, creatinine of 1.87 (fourteen and 0.82 in December) BNP of 484, UA negative, CT negative, Abdominal CT shows no acute findings within the abdomen or pelvis to explain the patient's symptoms, moderate stool present within the rectum, Chest x-ray shows no pulmonary congestion and no evidence of pneumonia Patient has at blue discoloration of his left toes, arterial duplex showed no arterial occlusion evident. Review of Systems Review of Systems: Yes all other systems are reviewed and are negative [facility] Medical History Bradycardia Cardiomyopathy Chronic atrial fibrillation Chronic HFrEF (heart failure with reduced ejection fraction) CVA (cerebral vascular accident) HTN (hypertension) Obesity Family History Father Emphysema lung Mother Cardiovascular disease Social History Household Members: Caregiver Housing: House Do you presently have visiting nurse or other home services: Yes ([employer]) Unable to assess alcohol history related to: Unknown Alcohol intake: never Second Hand Smoke Exposure: No Advance Directives: Yes Advance Directives on File: Yes Advance Directives Date on File: 11/23/20 service: No Current occupational status: disabled Meds Allergies Allergy/AdvReac Type Severity Reaction Status Date / Time No Known Allergies Allergy Verified 11/23/20 14:28 Active Medications: Current Medications Generic Name Dose Route Start Last Admin Trade Name Freq PRN Reason Stop Dose Admin Acetaminophen 650 mg 02/11/21 03:28 Acetaminophen 325 Mg Tablet PO Q6H PRN Pain, Mild (Pain Scale 1-3) Albuterol/Ipratropium 3 ml 02/11/21 08:00 Albuterol/Iprat 2.5/0.5mg 3 Ml Ampul.Neb INHALE RQ4H WHILE AWAKE VENITA Albuterol/Ipratropium 3 ml 02/11/21 03:28 Albuterol/Iprat 2.5/0.5mg 3 Ml Ampul.Neb INHALE RQ4H PRN Shortness of Breath/Wheezing Docusate Sodium 100 mg 02/11/21 05:02 Docusate Sodium 100 Mg Capsule PO DAILY PRN Constipation Heparin Sodium (Porcine) 5,000 unit 02/11/21 06:00 Heparin Sodium,Porcine 5,000 Unit/Ml Vial SUBCUT Q12H [facility] Methylprednisolone Sodium Succinate 40 mg 02/11/21 03:30 Methylprednisolone Sod Succ 40 Mg/Ml Vial IVPUSH Q12H VENITA Ondansetron HCl 4 mg 02/11/21 05:02 Ondansetron Hcl 4 Mg/2 Ml Vial IVPUSH Q8H PRN Nausea and Vomiting Polyethylene Glycol 17 gm 02/11/21 09:00 Polyethylene Glycol 3350 17 Gm Powd.Pack PO DAILY [facility] Sodium Chloride 3 ml 02/11/21 08:00 0.9 % Sodium Chloride Flush 3 Ml [facility] Medications Medication Instructions Recorded Confirmed Last Taken Type Pradaxa 1 cap PO BID 01/08/21 02/11/21 Unknown History albuterol sulfate 1 amp INHALATION Q6H 01/08/21 02/11/21 Unknown History citalopram 1 tab PO DAILY 01/08/21 02/11/21 Unknown History hydroxyzine HCl 10 mg PO DAILY 01/08/21 02/11/21 Unknown History levetiracetam 1 tab PO BID 01/08/21 02/11/21 Unknown History melatonin 2 tab PO BEDTIME 01/08/21 02/11/21 Unknown History metoprolol succinate 1 tab PO QAM 01/08/21 02/11/21 Unknown History oxcarbazepine 1 tab PO BID 01/08/21 02/11/21 Unknown History pantoprazole 1 tab PO QAM 01/08/21 02/11/21 Unknown History simvastatin 1 tab PO QPM 01/08/21 02/11/21 Unknown History tizanidine 0.5 tab PO TID 01/08/21 02/11/21 Unknown History Physical Exam Vital Signs and Narrative: Vital Signs: Last Vital Signs Temp 98.4 F 02/10/21 20:51 Pulse 72 02/11/21 05:02 Resp 18 02/11/21 05:02 BP 119/92 H 02/11/21 05:02 Pulse Ox 96 02/11/21 05:02 Body Mass Index 40.2 Const: General: cooperative and no acute distress Orientation/consciousness: patient oriented x3 Eyes: General: appearance normal, both eyes and all related structures Resp: Other: Expiratory wheezing Effort & Inspection: normal respiratory effort and able to speak in complete sentences Cardio: Rate: regular rate Rhythm: regular rhythm GI: Other: Obese abdomen, patient tenses his abdominal muscle every time I try to examine him therefore was very difficult to examine the abdomen, appears uncomfortable every time I tried to examine and push deeply Palpation (GI): Rigid due to palpation Skin: General skin exam: no rashes or lesions noted Neuro: General: patient oriented x3 Cognition (Neuro): normal cognition Extrem: Other: Trace pedal edema, has blue discoloration of left toes with palpable peripheral pulses General: Yes normal to inspection Results Labs CBC and Chem 7: 02/10/21 22:25 02/10/21 22:25 Labs: Laboratory Results - last 24 hr 02/10/21 02/10/21 02/10/21 22:25 22:25 22:25 MCV 83.1 MCH 26.2 L MCHC 31.5 RDW 16.4 H Plt Count 230 D MPV 9.4 Immature Gran % (Auto) 0.3 Neut % (Auto) 80.3 H Lymph % (Auto) 9.0 L [place] % (Auto) 10.1 Eos % (Auto) 0.1 Baso % (Auto) 0.2 Lymph # (Auto) 1.1 L [place] # (Auto) 1.2 Eos # (Auto) 0.0 Baso # (Auto) 0.0 Abs Immat Gran (auto) 0.03 Absolute Neuts (auto) 9.5 H Absolute Nucleated RBC 0.000 Nucleated RBC % (auto) 0.0 PT 16.3 H D INR 1.4 H VBG pH VBG pCO2 VBG pO2 VBG HCO3 VBG O2 Saturation VBG Base Excess Anion Gap 16 Estim Creat Clear Calc 50.9 Estimated GFR 37 POC Glucose Random Glucose 101 D Lactic Acid Calcium 9.7 D Magnesium Total Bilirubin 0.4 AST 35 ALT 22 Alkaline Phosphatase 88 Troponin I High Sens B-Natriuretic Peptide Total Protein 7.8 D Albumin 4.7 D Lipase 14 Urine Color Urine Appearance Urine pH Ur Specific [place] Urine Protein Urine Glucose (UA) Urine Ketones Urine Blood Urine Nitrite Ur Leukocyte Esterase COVID-19 (GIOVANA) COVID-19 Lazarus Effect 02/10/21 02/10/21 02/10/21 22:25 22:25 22:25 MCV MCH MCHC RDW Plt Count MPV Immature Gran % (Auto) Neut % (Auto) Lymph % (Auto) [place] % (Auto) Eos % (Auto) Baso % (Auto) Lymph # (Auto) [place] # (Auto) Eos # (Auto) Baso # (Auto) Abs Immat Gran (auto) Absolute Neuts (auto) Absolute Nucleated RBC Nucleated RBC % (auto) PT INR VBG pH VBG pCO2 VBG pO2 VBG HCO3 VBG O2 Saturation VBG Base Excess Anion Gap Estim Creat Clear Calc Estimated GFR POC Glucose Random Glucose Lactic Acid 0.8 Calcium Magnesium 1.9 Total Bilirubin AST ALT Alkaline Phosphatase Troponin I High Sens 30.7 B-Natriuretic Peptide 484 H Total Protein Albumin Lipase Urine Color Urine Appearance Urine pH Ur Specific [place] Urine Protein Urine Glucose (UA) Urine Ketones Urine Blood Urine Nitrite Ur Leukocyte Esterase COVID-19 (GIOVANA) COVID-19 Lazarus Effect 02/10/21 02/10/21 02/10/21 22:25 22:29 23:21 MCV MCH MCHC RDW Plt Count MPV Immature Gran % (Auto) Neut % (Auto) Lymph % (Auto) [place] % (Auto) Eos % (Auto) Baso % (Auto) Lymph # (Auto) [place] # (Auto) Eos # (Auto) Baso # (Auto) Abs Immat Gran (auto) Absolute Neuts (auto) Absolute Nucleated RBC Nucleated RBC % (auto) PT INR VBG pH 7.38 VBG pCO2 41 VBG pO2 180 VBG HCO3 24 VBG O2 Saturation 99.0 VBG Base Excess -0.4 Anion Gap Estim Creat Clear Calc Estimated GFR POC Glucose 119 H Random Glucose Lactic Acid Calcium Magnesium Total Bilirubin AST ALT Alkaline Phosphatase Troponin I High Sens B-Natriuretic Peptide Total Protein Albumin Lipase Urine Color Urine Appearance Urine pH Ur Specific [place] Urine Protein Urine Glucose (UA) Urine Ketones Urine Blood Urine Nitrite Ur Leukocyte Esterase COVID-19 (GIOVANA) Negative COVID-19 Clin Com See Note 02/10/21 23:31 MCV MCH MCHC RDW Plt Count MPV Immature Gran % (Auto) Neut % (Auto) Lymph % (Auto) [place] % (Auto) Eos % (Auto) Baso % (Auto) Lymph # (Auto) [place] # (Auto) Eos # (Auto) Baso # (Auto) Abs Immat Gran (auto) Absolute Neuts (auto) Absolute Nucleated RBC Nucleated RBC % (auto) PT INR VBG pH VBG pCO2 VBG pO2 VBG HCO3 VBG O2 Saturation VBG Base Excess Anion Gap Estim Creat Clear Calc Estimated GFR POC Glucose Random Glucose Lactic Acid Calcium Magnesium Total Bilirubin AST ALT Alkaline Phosphatase Troponin I High Sens B-Natriuretic Peptide Total Protein Albumin Lipase Urine Color YELLOW Urine Appearance CLEAR Urine pH 6.0 Ur Specific [place] <= 1.005 Urine Protein NEG Urine Glucose (UA) NEG Urine Ketones NEG Urine Blood NEG Urine Nitrite NEG Ur Leukocyte Esterase NEG COVID-19 (GIOVANA) COVID-19 Clin Com Imaging Radiologist's Impressions: Impressions Chest X-Ray 02/10/21 22:02 IMPRESSION: Resolving bilateral airspace opacities since prior chest x-ray 01/08/2021. Abdomen/Pelvis CT 02/11/21 00:06 IMPRESSION: No acute findings within the abdomen or pelvis to explain the patient's symptomatology. Chronic findings as above. Duplex Scan Lower Extremity Artery 02/11/21 01:45 IMPRESSION: Limited exam. No arterial occlusion evident. Assessment and Plan (1) Dyspnea: Status: Acute (2) Asthma exacerbation: Status: Acute (3) Abdominal pain: Qualifiers: Abdominal location: generalized Qualified Code(s): R10.84 - Generalized abdominal pain Status: Acute (4) SHAVON (acute kidney injury): Status: Acute (5) Raynaud disease: Qualifiers: Raynaud?s-associated gangrene presence: without gangrene Qualified Code(s): I73.00 - Raynaud's syndrome without gangrene Status: Acute (6) Hyponatremia: Status: Acute (7) Anemia: Status: Acute (8) Constipation: Status: Acute 65-year-old male with past medical history of asthma, as well as CHF who presents to the hospital with complaints of shortness of breath found to have asthma exacerbation as well as possible CHF with hyponatremia # dyspnea - most likely secondary to asthma exacerbation - has audible wheezing - no clinical evidence of CHF - has trace pedal edema, and although his BNP is elevated it is significantly lower than his usual numbers when he presents - no evidence of pulmonary congestion on chest x-ray - at this time will treat him for COPD/asthma exacerbation with IV Solu-Medrol, breathing treatment - monitor respiratory status #asthma exacerbation - patient is a former smoker, reports history of asthma - has audible wheezing - denies any cough or sputum production - will start him on Solu-Medrol 40 IV b.i.d., DuoNeb p.r.n. and scheduled # abdominal pain - most likely secondary to moderate constipation - CT abdomen negative for any colitis or any other etiology such as small-bowel obstruction or ileus for the abdominal pain - will start with bowel regimen - Tylenol p.r.n. # constipation - bowel regimen - Fleet enema - monitor for BM # hyponatremia - acute on chronic with last sodium of 129 in December, presents now with sodium of 126 - will start him with NS - consult Nephrology # SHAVON - most likely secondary to dehydration versus CHF - at this time will start him on fluids - follow BMP # CHF - does not appear to be in volume overload clinically, as well as has no orthopnea PND, elevated BNP can be contributed to his SHAVON - will consult Cardiology to guide us in this regard - continue home Lasix of 20 mg - of note patient received 20 mg of IV Lasix in the ED for possible CHF exacerbation # Raynaud's disease - patient has discoloration of his left toes - arterial Doppler negative for any abnormality - has palpable pulses - continue Pradaxa - months resolution of discoloration # hypertension - stable - continue valsartan - consider adding calcium channel arpan outpatient for management of Raynaud's phenomenon as well as hypertension Raynaud's phenomena not phenomenon treatment Raynaud's for melanoma in the outpatient setting # hld - continue statin DVT prophylaxis: heparin Quality Stroke Does the patient have a stroke diagnosis?: No VTE Prior VTE?: No VTE Risk Level:: Medical - moderate - high VTE Device Contraindication: Treatment Not Indicated VTE Drug Contraindication: N/A - Med Ordered
[2021-02-11] MEDS: Milk of Magnesia 30 ML ORAL.SUSP PO (05:46)
[2021-02-11] MEDS: Heparin Sodium,Porcine 5,000 UNIT/ML VIAL 5000 UNIT SUBCUT ×2 (05:46→17:44)
[2021-02-11] MEDS: methylPREDNISolone Sod Succ 40 MG/ML VIAL IVPUSH ×2 (05:46→14:19)
[2021-02-11] MEDS: 0.9 % Sodium Chloride 1,000 ML 80 ML IVCONT (05:54)
--- NOTE | 2021-02-11 06:20 | PC.NURSE ---
pt awaiting for room assignment. NS up and running on pump as per emar. Pt's labs drawn and pt awaiting for room assignment. will continue to monitor pt.
[2021-02-11 06:21] LABS: Anion Gap 16 (12-20); Blood Urea Nitrogen 19 mg/dL (9-16); Calcium 9.4 mg/dL (8.4-10.2); Carbon Dioxide 26 mmol/L (22-29); Chloride 91 mmol/L (96-108); Estimated Glomerular Filt Rate 41; Glucose Random 94 mg/dL (60-115); Potassium 4.8 mmol/L (3.3-5.1); Sodium 128 mmol/L (135-145)
--- NOTE | 2021-02-11 07:21 | PC.NURSE ---
report taken from DEANGELO Rodrigez. pt in bed resting quietly with eyes closed. 200ml of yellow urine emptied from dotson. pt awaiting bed assignment.
[2021-02-11] MEDS: Albuterol/Iprat 2.5/0.5MG 3 ML AMPUL.NEB INHALE ×4 (07:41→19:47)
[2021-02-11] MEDS: Acetaminophen 325 MG TABLET 650 MG PO (08:24)
--- NOTE | 2021-02-11 08:26 | PC.NURSE ---
Pt noted to have some body stiffness when staff attempted to reposition him in bed, reporting back pain at this time, medicated with PRN tylenol. Small skin tear noted to left elbow, non stick dressing applied, pt with some bruising to left arm, pt reports that is a result of blood draws. Pillow placed under left arm, left arm weak as residual deficit from old CVA. Pt currently being assisted to eat his breakfast, no additional complaints at this time.
[2021-02-11] MEDS: polyethylene glycoL 3350 17 GM POWD.PACK PO (08:59)
[2021-02-11] MEDS: TiZANidine HCL 4 MG TABLET 2 MG PO ×3 (09:00→21:11)
[2021-02-11] MEDS: Valsartan 80 MG TABLET PO (09:01)
[2021-02-11] MEDS: Furosemide 20 MG TABLET PO (09:02)
[2021-02-11] MEDS: Metoprolol Succinate ER 25 MG TAB.ER.24H PO (09:02)
[2021-02-11] MEDS: Omeprazole 20 MG CAPSULE.DR PO (09:02)
--- NOTE | 2021-02-11 09:33 | PC.NURSE ---
Pt moved into a hospital bed to make him more comfortable, skn break down noted to buttock, pt was in soiled brief, pt cleaned and placed on right side, plan to alternate positions q2h with pt. Pt's left foot noted to have discolored toe, toes cooler than those on right root, pedal pulse palpated and auscultated with doppler by this rn.
[2021-02-11 10:53] LABS: Osmolality Urine 248 mosm/kg (373-1093)
--- NOTE | 2021-02-11 10:53 | PC.NURSE ---
Senior Internet Sales Consultant at the bedside.
--- NOTE | 2021-02-11 12:03 | P.CONCA_ITS ---
History of Present Illness History of Present Illness Date of Service: 02/11/21 Consult reason: congestive heart failure Chief complaint: Copd/Chf Exacerbation Narrative: This is a cardiology consultation for congestive heart failure. Patient states that he suddenly got short of breath and that led to this hospitalization. No clear anginal-type chest pains but per H and P, he has had some abdominal pain. Otherwise, he states that he can barely move out of bed due to history of stroke. Hence it does not appear that he has any ambulation at all. He is not able to offer any further information at this time. Review of Systems Review of Systems: Yes all other systems are reviewed and are negative Cardiovascular: Cardiovascular: Reports as per HPI, Reports no additional cardiovascular complaints, Denies acrocyanosis, Denies cool extremities, Denies painful fingertips, Denies chest pain, Denies chest pain at rest, Denies diaphoresis, Denies syncope, Denies irregular heart rhythm, Denies claudication, Denies leg edema, Denies lightheadedness, Denies palpitations and Reports dyspnea Respiratory: Respiratory: Reports dyspnea Neurologic: Denies syncope Endocrine: Endocrine: Denies palpitations PMF Past Medical History Medical History Bradycardia Cardiomyopathy Chronic atrial fibrillation Chronic HFrEF (heart failure with reduced ejection fraction) CVA (cerebral vascular accident) HTN (hypertension) Obesity Family History Family History Father Emphysema lung Mother Cardiovascular disease Social History Social History Household Members: Caregiver Housing: House Do you presently have 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) Unable to assess alcohol history related to: Unknown Alcohol intake: never Second Hand Smoke Exposure: No Advance Directives: Yes Advance Directives on File: Yes Advance Directives Date on File: 11/23/20 service: No Current occupational status: disabled Meds Allergies Allergy/AdvReac Type Severity Reaction Status Date / Time No Known Allergies Allergy Verified 11/23/20 14:28 Active Medications: Current Medications Generic Name Dose Route Start Last Admin Trade Name Freq PRN Reason Stop Dose Admin Acetaminophen 650 mg 02/11/21 03:28 02/11/21 08:24 Acetaminophen 325 Mg Tablet PO 650 mg Q6H PRN Administration Pain, Mild (Pain Scale 1-3) Albuterol/Ipratropium 3 ml 02/11/21 08:00 02/11/21 11:44 Albuterol/Iprat 2.5/0.5mg 3 Ml Ampul.Neb INHALE 3 ml RQ4H WHILE AWAKE VENITA Administration Albuterol/Ipratropium 3 ml 02/11/21 03:28 Albuterol/Iprat 2.5/0.5mg 3 Ml Ampul.Neb INHALE RQ4H PRN Shortness of Breath/Wheezing Atorvastatin Calcium 10 mg 02/11/21 21:00 Atorvastatin Calcium 10 Mg Tablet PO BEDTIME VENITA Dabigatran 150 mg 02/11/21 12:00 Dabigatran Etexilate Mesylate 150 Mg Capsule PO BID@1200,2100 [facility] Docusate Sodium 100 mg 02/11/21 05:02 Docusate Sodium 100 Mg Capsule PO DAILY PRN Constipation Escitalopram Oxalate 20 mg 02/11/21 12:00 Escitalopram Oxalate 20 Mg Tablet PO DAILY@1200 [facility] Furosemide 20 mg 02/11/21 09:00 02/11/21 09:02 Furosemide 20 Mg Tablet PO 20 mg DAILY VENITA Administration Protocol Heparin Sodium (Porcine) 5,000 unit 02/11/21 06:00 02/11/21 05:46 Heparin Sodium,Porcine 5,000 Unit/Ml Vial SUBCUT 5,000 unit Q12H VENITA Administration Hydroxyzine HCl 10 mg 02/11/21 21:00 Hydroxyzine Hcl 10 Mg Tablet PO BEDTIME [facility] [place] Lactulose 20 gm 02/11/21 13:00 Lactulose 20 Gm/30 Ml Solution PO 02/11/21 13:01 ONCE ONE Levetiracetam 1,000 mg 02/11/21 12:00 Levetiracetam 1,000 Mg Tablet PO BID@1200,2100 [facility] [place] Lidocaine 1 patch 02/11/21 05:59 Lidocaine 4 % Patch Adh..Patch TRANSDERMA DAILY PRN pain Protocol Magnesium Hydroxide 15 ml 02/11/21 06:03 Milk Of Magnesia 30 Ml Oral.Susp PO BEDTIME PRN constip Melatonin 9 mg 02/11/21 21:00 Melatonin 3 Mg Tablet PO BEDTIME [facility] Methylprednisolone Sodium Succinate 40 mg 02/11/21 03:30 02/11/21 05:46 Methylprednisolone Sod Succ 40 Mg/Ml Vial IVPUSH 40 mg Q12H VENITA Administration Metoprolol Succinate 25 mg 02/11/21 09:00 02/11/21 09:02 Metoprolol Succinate Er 25 Mg Tab.Er.24h PO 25 mg DAILY VENITA Administration Protocol Omeprazole 20 mg 02/11/21 09:00 02/11/21 09:02 Omeprazole 20 Mg Capsule.Dr PO 20 mg DAILY VENITA Administration Ondansetron HCl 4 mg 02/11/21 05:02 Ondansetron Hcl 4 Mg/2 Ml Vial IVPUSH Q8H PRN Nausea and Vomiting Oxcarbazepine 300 mg 02/11/21 12:00 Oxcarbazepine 300 Mg Tablet PO BID@1200,2100 VENITA Polyethylene Glycol 17 gm 02/11/21 09:00 02/11/21 08:59 Polyethylene Glycol 3350 17 Gm Powd.Pack PO 17 gm DAILY VENITA Administration Sodium Chloride 3 ml 02/11/21 08:00 02/11/21 08:11 0.9 % Sodium Chloride Flush 3 Ml Syringe IVFLUSH Not Given QSHIFT [facility] Tizanidine HCl 2 mg 02/11/21 09:00 02/11/21 09:00 Tizanidine Hcl 4 Mg Tablet PO 2 mg TID VENITA Administration Valsartan 80 mg 02/11/21 09:00 02/11/21 09:01 Valsartan 80 Mg Tablet PO 80 mg BID [facility] Administration Protocol Home Medications Medication Instructions Recorded Confirmed Last Taken Type Pradaxa 1 cap PO BID@1200,2100 01/08/21 02/11/21 Unknown History albuterol sulfate 1 amp INHALATION Q6H 01/08/21 02/11/21 Unknown History citalopram 1 tab PO DAILY@1200 01/08/21 02/11/21 Unknown History hydroxyzine HCl 10 mg PO BEDTIME 01/08/21 02/11/21 Unknown History levetiracetam 1 tab PO BID@1200,2100 01/08/21 02/11/21 Unknown History melatonin 2 tab PO BEDTIME 01/08/21 02/11/21 Unknown History metoprolol succinate 1 tab PO QAM 01/08/21 02/11/21 Unknown History oxcarbazepine 1 tab PO BID@1200,2100 01/08/21 02/11/21 Unknown History pantoprazole 1 tab PO QAM 01/08/21 02/11/21 Unknown History simvastatin 1 tab PO QPM 01/08/21 02/11/21 Unknown History tizanidine 0.5 tab PO TID 01/08/21 02/11/21 Unknown History albuterol sulfate [ProAir HFA] 2 puff INHALATION Q4-6H PRN 02/11/21 02/11/21 Unknown History Physical Exam Vital Signs: Vital Signs: Last Vital Signs Temp 98.4 F 02/10/21 20:51 Pulse 57 02/11/21 11:45 Resp 12 02/11/21 07:06 BP 126/68 02/11/21 09:02 Pulse Ox 95 02/11/21 07:06 Body Mass Index 40.2 Const: General: cooperative and no acute distress HENMT: Other: Unremarkable Neck: Neck: Yes normal visual inspection Chest: Chest palpation & inspection: normal inspection of the chest Resp: Other: Difficult to auscultate as he is unable to turn or move Effort & Inspection: decreased respiratory effort Cardio: Jugular venous distension: no JVD Palpation: normal PMI Heart sounds: S1 normal heart sound present, S2 normal heart sound present, no gallops, no murmurs and no rubs GI: Palpation (GI): Soft to palpation Back/Spine/Pelvis: Other: unremarkable Skin: General skin exam: no rashes or lesions noted Neuro: Cranial nerves: Yes Other cranial nerve findings present Extrem: General: Yes edema (1+) Psych: Mental Status: other Results Labs and Meds Result diagrams: 02/10/21 22:25 02/11/21 05:54 Lab results: Laboratory Results - last 24 hr 02/10/21 02/10/21 02/10/21 22:25 22:25 22:25 WBC 11.8 H RBC 3.97 L Hgb 10.4 L Hct 33.0 L MCV 83.1 MCH 26.2 L MCHC 31.5 RDW 16.4 H Plt Count 230 D MPV 9.4 Immature Gran % (Auto) 0.3 Neut % (Auto) 80.3 H Lymph % (Auto) 9.0 L Mcpherson % (Auto) 10.1 Eos % (Auto) 0.1 Baso % (Auto) 0.2 Lymph # (Auto) 1.1 L Mcpherson # (Auto) 1.2 Eos # (Auto) 0.0 Baso # (Auto) 0.0 Abs Immat Gran (auto) 0.03 Absolute Neuts (auto) 9.5 H Absolute Nucleated RBC 0.000 Nucleated RBC % (auto) 0.0 PT 16.3 H D INR 1.4 H VBG pH VBG pCO2 VBG pO2 VBG HCO3 VBG O2 Saturation VBG Base Excess Sodium 126 L Potassium 5.7 H D Chloride 90 L Carbon Dioxide 26 Anion Gap 16 BUN 17 H Creatinine 1.87 H Estim Creat Clear Calc 50.9 Estimated GFR 37 POC Glucose Random Glucose 101 D Lactic Acid Calcium 9.7 D Magnesium Total Bilirubin 0.4 AST 35 ALT 22 Alkaline Phosphatase 88 Troponin I High Sens B-Natriuretic Peptide Total Protein 7.8 D Albumin 4.7 D Lipase 14 Urine Color Urine Appearance Urine pH Ur Specific Palco Urine Protein Urine Glucose (UA) Urine Ketones Urine Blood Urine Nitrite Ur Leukocyte Esterase Urine Osmolality Ur Random Sodium COVID-19 (GIOVANA) COVID-19 [employer]relix 02/10/21 02/10/21 02/10/21 22:25 22:25 22:25 WBC RBC Hgb Hct MCV MCH MCHC RDW Plt Count MPV Immature Gran % (Auto) Neut % (Auto) Lymph % (Auto) Mcpherson % (Auto) Eos % (Auto) Baso % (Auto) Lymph # (Auto) Mcpherson # (Auto) Eos # (Auto) Baso # (Auto) Abs Immat Gran (auto) Absolute Neuts (auto) Absolute Nucleated RBC Nucleated RBC % (auto) PT INR VBG pH VBG pCO2 VBG pO2 VBG HCO3 VBG O2 Saturation VBG Base Excess Sodium Potassium Chloride Carbon Dioxide Anion Gap BUN Creatinine Estim Creat Clear Calc Estimated GFR POC Glucose Random Glucose Lactic Acid 0.8 Calcium Magnesium 1.9 Total Bilirubin AST ALT Alkaline Phosphatase Troponin I High Sens 30.7 B-Natriuretic Peptide 484 H Total Protein Albumin Lipase Urine Color Urine Appearance Urine pH Ur Specific [place] Urine Protein Urine Glucose (UA) Urine Ketones Urine Blood Urine Nitrite Ur Leukocyte Esterase Urine Osmolality Ur Random Sodium COVID-19 (GIOVANA) COVID-19 Correlix 02/10/21 02/10/21 02/10/21 22:25 22:29 23:21 WBC RBC Hgb Hct MCV MCH MCHC RDW Plt Count MPV Immature Gran % (Auto) Neut % (Auto) Lymph % (Auto) Mcpherson % (Auto) Eos % (Auto) Baso % (Auto) Lymph # (Auto) Mcpherson # (Auto) Eos # (Auto) Baso # (Auto) Abs Immat Gran (auto) Absolute Neuts (auto) Absolute Nucleated RBC Nucleated RBC % (auto) PT INR VBG pH 7.38 VBG pCO2 41 VBG pO2 180 VBG HCO3 24 VBG O2 Saturation 99.0 VBG Base Excess -0.4 Sodium Potassium Chloride Carbon Dioxide Anion Gap BUN Creatinine Estim Creat Clear Calc Estimated GFR POC Glucose 119 H Random Glucose Lactic Acid Calcium Magnesium Total Bilirubin AST ALT Alkaline Phosphatase Troponin I High Sens B-Natriuretic Peptide Total Protein Albumin Lipase Urine Color Urine Appearance Urine pH Ur Specific [place] Urine Protein Urine Glucose (UA) Urine Ketones Urine Blood Urine Nitrite Ur Leukocyte Esterase Urine Osmolality Ur Random Sodium COVID-19 (GIOVANA) Negative COVID-19 [employer] Com See Note 02/10/21 02/10/21 02/10/21 23:31 23:31 23:31 WBC RBC Hgb Hct MCV MCH MCHC RDW Plt Count MPV Immature Gran % (Auto) Neut % (Auto) Lymph % (Auto) Mcpherson % (Auto) Eos % (Auto) Baso % (Auto) Lymph # (Auto) Mcpherson # (Auto) Eos # (Auto) Baso # (Auto) Abs Immat Gran (auto) Absolute Neuts (auto) Absolute Nucleated RBC Nucleated RBC % (auto) PT INR VBG pH VBG pCO2 VBG pO2 VBG HCO3 VBG O2 Saturation VBG Base Excess Sodium Potassium Chloride Carbon Dioxide Anion Gap BUN Creatinine Estim Creat Clear Calc Estimated GFR POC Glucose Random Glucose Lactic Acid Calcium Magnesium Total Bilirubin AST ALT Alkaline Phosphatase Troponin I High Sens B-Natriuretic Peptide Total Protein Albumin Lipase Urine Color YELLOW Urine Appearance CLEAR Urine pH 6.0 Ur Specific [place] <= 1.005 Urine Protein NEG Urine Glucose (UA) NEG Urine Ketones NEG Urine Blood NEG Urine Nitrite NEG Ur Leukocyte Esterase NEG Urine Osmolality 248 L Ur Random Sodium 36.0 COVID-19 (GIOVANA) COVID-19 [employer] Com 02/11/21 05:54 WBC RBC Hgb Hct MCV MCH MCHC RDW Plt Count MPV Immature Gran % (Auto) Neut % (Auto) Lymph % (Auto) Mcpherson % (Auto) Eos % (Auto) Baso % (Auto) Lymph # (Auto) Mcpherson # (Auto) Eos # (Auto) Baso # (Auto) Abs Immat Gran (auto) Absolute Neuts (auto) Absolute Nucleated RBC Nucleated RBC % (auto) PT INR VBG pH VBG pCO2 VBG pO2 VBG HCO3 VBG O2 Saturation VBG Base Excess Sodium 128 L Potassium 4.8 Chloride 91 L Carbon Dioxide 26 Anion Gap 16 BUN 19 H Creatinine 1.70 H Estim Creat Clear Calc 56.0 Estimated GFR 41 POC Glucose Random Glucose 94 Lactic Acid Calcium 9.4 Magnesium Total Bilirubin AST ALT Alkaline Phosphatase Troponin I High Sens B-Natriuretic Peptide Total Protein Albumin Lipase Urine Color Urine Appearance Urine pH Ur Specific [place] Urine Protein Urine Glucose (UA) Urine Ketones Urine Blood Urine Nitrite Ur Leukocyte Esterase Urine Osmolality Ur Random Sodium COVID-19 (GIOVANA) COVID-19 Clin Com ECG Attestation: I personally reviewed and interpreted this ECG as follows: Interpretation: EKG shows underlying atrial fibrillation at 74/Min. Cannot exclude old inferior infarct or anterior infarct. Overall, similar to prior. Imaging Radiologist's impression: Impressions Chest X-Ray 02/10/21 22:02 IMPRESSION: Resolving bilateral airspace opacities since prior chest x-ray 01/08/2021. Abdomen/Pelvis CT 02/11/21 00:06 IMPRESSION: No acute findings within the abdomen or pelvis to explain the patient's symptomatology. Chronic findings as above. Duplex Scan Lower Extremity Artery 02/11/21 01:45 IMPRESSION: Limited exam. No arterial occlusion evident. Assessment and Plan (1) Acute on chronic combined systolic and diastolic CHF (congestive heart failure): Status: Acute (2) Chronic atrial fibrillation: Status: Acute Last echocardiogram from December reviewed. LVEF 35-40%. Severely dilated left atrium. Mild mitral regurgitation. No evidence of pulmonary hypertension. Chest x-ray reported to have resolving bilateral airspace opacities since prior chest x-ray. Labs reviewed. Hemoglobin is 10.4. White cells 11.8. Platelets 230. Sodium 128. Potassium 4.8. BUN is 19. Creatinine 1.7. Normal baseline at 0.8 a month ago. Cardiac BNP 484. Previously, 1345 in December. In August 2020, it was 2983. HS troponin 30.7. Overall, doubt that cardiac etiology for his shortness of breath is less likely. No need for aggressive diuretics. Procedures Date of Service Date of Service: 02/11/21
[2021-02-11] MEDS: Lactulose 20 GM/30 ML SOLUTION PO (14:19)
[2021-02-11] MEDS: Escitalopram Oxalate 20 MG TABLET PO (14:19)
[2021-02-11] MEDS: levETIRAcetam 1,000 MG TABLET 1000 MG PO ×2 (14:19→21:10)
[2021-02-11] MEDS: OXcarbazepine 300 MG TABLET PO ×2 (14:19→21:10)
[2021-02-11] MEDS: Dabigatran Etexilate Mesylate 150 MG CAPSULE PO ×2 (14:19→21:10)
[2021-02-11] MEDS: 0.9 % Sodium Chloride Flush 3 ML SYRINGE IVFLUSH (15:28)
[2021-02-11] MEDS: Melatonin 3 MG TABLET 9 MG PO (21:10)
[2021-02-11] MEDS: Atorvastatin Calcium 10 MG TABLET PO (21:10)
[2021-02-11] MEDS: hydrOXYzine HCL 10 MG TABLET PO (21:11)
--- NOTE | 2021-02-11 23:43 | CONS_ITS ---
DATE OF SERVICE: REASON FOR CONSULTATION: Consult requested by the medical team to evaluate and help in management of patient's renal insufficiency. HISTORY OF PRESENT ILLNESS: The patient is a 65-year-old male with past medical history of CHF with reduced ejection fraction, history of hypertension, CVA, Raynaud phenomenon, chronic anemia, chronic hyponatremia, presented to the hospital, complains of shortness of breath. He started having shortness of breath about earlier this morning, associated with wheezing. There was no cough, sputum, PND. He did have some edema. There was no fever or chills. In the ER, the patient was hemodynamically stable with a sodium level was on the low side at 128 and hence renal consultation has been requested. His sodium has been ranging anywhere between 125 to 134 in the past. His BUN and creatinine were elevated as well. His creatinine at baseline has been 0.6 to 0.8, which has increased to around 1.7. CT of the abdomen did not show any acute changes. There was no hydronephrosis. X-ray showed no pulmonary congestion or evidence of pneumonia. REVIEW OF SYSTEMS: As noted above. Other systems are reviewed and negative. PAST MEDICAL HISTORY: History of bradycardia, history of cardiomyopathy with low ejection fraction, chronic atrial fibrillation, history of diastolic heart failure, CVA, hypertension, obesity. FAMILY HISTORY: Significant for emphysema on the father. Mother due to cerebrovascular disease. ALLERGIES: THE PATIENT HAS NO KNOWN DRUG ALLERGIES. MEDICATIONS: At home include Pradaxa, albuterol, citalopram, hydroxyzine, levetiracetam, melatonin, metoprolol succinate, carbamazepine, pantoprazole, simvastatin, and tizanidine. PHYSICAL EXAMINATION: GENERAL: The patient is resting in the bed, sleepy, but fully arousable, comfortable. VITAL SIGNS: Blood pressure was 119/92, pulse 72, afebrile. HEENT: Shows pupils equal bilaterally and reactive to light. No jugular venous distention is noted. NECK: Supple. No thyromegaly is noted. Mucosa is dry. There is no scleral icterus or conjunctival congestion. CARDIOVASCULAR SYSTEM: S1, S2 without rub or murmur. RESPIRATORY SYSTEM: Air entry decreased in the bases. No crepitation or rhonchi is noted. ABDOMEN: Soft, nontender, obese. Bowel sounds normal, it was distended. EXTREMITIES: Showed trace edema. There is no peripheral cyanosis or clubbing. NEURO: Essentially nonfocal. LABORATORY DATA: Labs done recently. Sodium 128, potassium 4.8, chloride 91, CO2 of 26, BUN 19, creatinine 1.70, estimated GFR was 41, glucose 94, calcium 9.4. BNP was elevated at 484. Albumin 4.7. Hemoglobin was 10.4, hematocrit 33, WBC 11.8, platelets were 230. INR 1.4. Urinalysis shows yellow urine, which is clear, specific gravity of less than 1.005, protein negative, glucose negative, urine osmolality was 248. Urine sodium was 36. IMPRESSION: 1. 65-year-old male with acute kidney injury. Acute kidney injury in this patient likely secondary to renal hypoperfusion. Initially, concern about dehydration but I do not think he is dehydrated at this juncture. He was not on any nephrotoxic agents based on the information available to me. Imaging of the abdomen did not show any obstructive uropathy/hydronephrosis. 2. Chronic kidney disease stage 2 at baseline. 3. Asthma exacerbation. 4. Question of congestive heart failure. 5. Hypertension. RECOMMENDATIONS: At this juncture, I agree with holding off on IV fluids. We can continue with the home dose of diuretics. The patient is presently on Solu-Medrol and bronchodilators for the asthma. We should continue with his antihypertensive regimen. I have taken the liberty to discontinue the valsartan, which can worsen his renal hypoperfusion. We can restart this medication after his renal function improves. In regard to hyponatremia, I would just place him on a fluid restriction of 1500 mL per day. Thank you for allowing me to participate in medical management of the patient. MD GUILLERMO Velez/DENZEL / [id number] MTDD
[2021-02-12] VITALS (12 sets, daily range): BP systolic 99–146; BP diastolic 53–95; PULSE 51–91; RESP 18–22; TEMP 36.6–37.4; O2SAT 91–99
--- NOTE | 2021-02-12 00:38 | PC.NURSE ---
pt hr dipped to 32bpm briefly. pt is asymptomatic and sleeping. HR currently back up to 63 afib. notified, no new orders at this time. will continue to reassess.
[2021-02-12] MEDS: 0.9 % Sodium Chloride Flush 3 ML SYRINGE IVFLUSH ×4 (01:48→20:37)
[2021-02-12] MEDS: methylPREDNISolone Sod Succ 40 MG/ML VIAL IVPUSH ×2 (02:53→14:45)
[2021-02-12] MEDS: Acetaminophen 325 MG TABLET 650 MG PO ×2 (03:00→14:52)
[2021-02-12] MEDS: Albuterol/Iprat 2.5/0.5MG 3 ML AMPUL.NEB INHALE ×5 (03:14→19:31)
[2021-02-12] MEDS: Milk of Magnesia 30 ML ORAL.SUSP 15 ML PO (05:12)
[2021-02-12] MEDS: Lidocaine 4 % Patch ADH..PATCH 1 PATCH TRANSDERMA ×2 (05:40→11:43)
[2021-02-12 06:32] LABS: Basophils Percent Auto 0.1 % (0-2); Hematocrit 27.2 % (42-52); Hemoglobin 8.8 g/dl (14.0-18.0); Imm Gran Abs Auto 0.04 X10*3/uL (0.00-0.03); Imm Gran Pct Auto 0.5 % (0.0-0.4); Lymphocytes Absolute Auto 0.5 X10*3/uL (1.2-4.9); Lymphocytes Percent Auto 5.7 % (20-40); MANUAL DIFF FLAG SCAN; Mean Corpuscular HGB Conc 32.4 g/dl (31.0-36.0); Mean Corpuscular Hemoglobin 25.8 pg (27.0-33.0); Mean Corpuscular Volume 79.8 fL (80-98); Mean Platelet Volume 9.8 fL (9.4-12.4); Monocytes Absolute Auto 0.2 X10*3/uL (0.1-1.2); Neutrophils Absolute Auto 7.8 X10*3/uL (2.0-8.3); Neutrophils Percent Auto 91.7 % (45-73); Platelet Count 211 X10*3/uL (160-400); Red Blood Count 3.41 X10*6/uL (4.60-5.80); Red Cell Distribution Width 16.5 % (11.0-16.0); SCAN SMEAR FLAG 1; White Blood Count 8.5 X10*3/uL (4.8-10.8)
[2021-02-12 06:56] LABS: Anion Gap 16 (12-20); Blood Urea Nitrogen 27 mg/dL (9-16); Calcium 9.5 mg/dL (8.4-10.2); Carbon Dioxide 25 mmol/L (22-29); Chloride 92 mmol/L (96-108); Creatinine Clr Calc Pharmacy 75.5; Estimated Glomerular Filt Rate 58; Glucose Random 111 mg/dL (60-115); Potassium 5.5 mmol/L (3.3-5.1); Sodium 127 mmol/L (135-145)
[2021-02-12 06:57] LABS: SLIDE REVIEW VERIFIED
[2021-02-12 07:01] LABS: B Type Natriuretic Peptide 237 pg/mL (<100)
[2021-02-12] MEDS: Furosemide 20 MG/2 ML VIAL IVPUSH (09:01)
[2021-02-12] MEDS: Omeprazole 20 MG CAPSULE.DR PO (09:03)
[2021-02-12] MEDS: TiZANidine HCL 4 MG TABLET 2 MG PO ×3 (09:07→20:38)
[2021-02-12] MEDS: Metoprolol Succinate ER 25 MG TAB.ER.24H PO (09:08)
[2021-02-12] MEDS: polyethylene glycoL 3350 17 GM POWD.PACK PO (10:12)
--- NOTE | 2021-02-12 10:43 | MHC.SL.SWA ---
Speech Pathologist Impression: Risk of Aspiration Risk of Aspiration Due to: Neurological Condition History of Pneumonia Dysphasia Diet Status: No Change Liquid Consistency and Strategies for Safe Swallow: Liquid Intake Recommendation: Thin Liquid Intake Strategies: Small Sips Solid Food Consistency: Dietary Recommendations: Regular Additional Modifications to Solid Foods: Pills whole in puree or liquid per tolerance/preference Oral Medication Intake: Whole with Puree Compensatory Strategies and Precautions to be Taken for Safe Swallow: Sitting Upright (90 deg) Small Bites and Sips Alternate Liquids/Solids Rate of Ingestion Change Supervision While Eating and Drinking for Safe Swallow: Total Assistance Swallowing Recommended Treatments: Compens. Strategy Educat. Recommendation for Speech: Inpatient Speech Therapy Comment: Recommend total assistance during meals due to left side weakness. Pills to be whole in puree or liquid per patient tolerance/preference. SOLAR BUSINESS DEVELOPER to follow up 1x time to ensure tolerance. Admissions Counselor Clinican/Clinical Fellow: No Supervisory Statement: I have reviewed and agree with the student/clinical fellow's documentation: N/A Speech Language Pathologist: Lizbeth Zacarias M.A., CCC-SOLAR BUSINESS DEVELOPER
[2021-02-12] MEDS: Lactulose 20 GM/30 ML SOLUTION PO ×2 (11:42→14:44)
[2021-02-12] MEDS: Aspirin Enteric Coated 81 MG TABLET.DR PO (11:43)
[2021-02-12] MEDS: Simethicone 80 MG TAB.CHEW PO ×3 (11:43→20:37)
[2021-02-12] MEDS: Escitalopram Oxalate 20 MG TABLET PO (11:44)
[2021-02-12] MEDS: levETIRAcetam 1,000 MG TABLET 1000 MG PO ×2 (11:44→20:38)
[2021-02-12] MEDS: Dabigatran Etexilate Mesylate 150 MG CAPSULE PO ×2 (11:44→20:37)
[2021-02-12] MEDS: OXcarbazepine 300 MG TABLET PO ×2 (11:46→20:37)
--- NOTE | 2021-02-12 11:52 | P.PNCA_ITS ---
Subjective Subjective Date of Service: 02/12/21 Interval history: No new complaints. Review of Systems Review of Systems Yes all other systems are reviewed and are negative Cardiovascular: Reports as per HPI, Reports no additional cardiovascular complaints, Denies acrocyanosis, Denies cool extremities, Denies painful fingertips, Denies chest pain, Denies chest pain at rest, Denies diaphoresis, Denies syncope, Denies irregular heart rhythm, Denies claudication, Denies leg edema, Denies lightheadedness, Denies palpitations and Reports dyspnea Respiratory: Reports dyspnea Denies syncope Endocrine: Denies palpitations Physical Exam Vital Signs: Last Vital Signs Temp 97.9 F 02/12/21 11:37 Pulse 82 02/12/21 11:37 Resp 18 02/12/21 11:37 BP 122/53 L 02/12/21 11:37 Pulse Ox 93 02/12/21 11:37 Body Mass Index 40.2 Const General: cooperative and no acute distress HENDE Other: Unremarkable Neck Neck: Yes normal visual inspection Chest Chest palpation & inspection: normal inspection of the chest Resp Other: Difficult to auscultate; no obvious crackles or wheeze Effort & Inspection: decreased respiratory effort Cardio Jugular venous distension: no JVD Palpation: normal PMI Heart sounds: S1 normal heart sound present, S2 normal heart sound present, no gallops, no murmurs and no rubs GI Palpation (GI): Soft to palpation Back/Spine/Pelvis Other: unremarkable Skin General skin exam: no rashes or lesions noted Neuro Cranial nerves: Yes Other cranial nerve findings present Extrem General: Yes pedal edema (Left LE 1+) Psych Mental Status: other Results Labs and Meds Result diagrams: 02/12/21 06:12 02/12/21 06:12 Lab results: Laboratory Results - last 24 hr 02/12/21 02/12/21 02/12/21 06:12 06:12 06:12 WBC 8.5 RBC 3.41 L Hgb 8.8 L Hct 27.2 L MCV 79.8 L MCH 25.8 L MCHC 32.4 RDW 16.5 H Plt Count 211 MPV 9.8 Immature Gran % (Auto) 0.5 H Neut % (Auto) 91.7 H Lymph % (Auto) 5.7 L [place] % (Auto) 2.0 Eos % (Auto) 0.0 Baso % (Auto) 0.1 Lymph # (Auto) 0.5 L [place] # (Auto) 0.2 Eos # (Auto) 0.0 Baso # (Auto) 0.0 Abs Immat Gran (auto) 0.04 H Absolute Neuts (auto) 7.8 Absolute Nucleated RBC 0.000 Nucleated RBC % (auto) 0.0 Smear Tech's Comments VERIFIED Sodium 127 L Potassium 5.5 H Chloride 92 L Carbon Dioxide 25 Anion Gap 16 BUN 27 H Creatinine 1.26 Estim Creat Clear Calc 75.5 Estimated GFR 58 Random Glucose 111 Calcium 9.5 B-Natriuretic Peptide 237 H Progress Note: A&P Assessment and plan (1) Acute on chronic combined systolic and diastolic CHF (congestive heart failure): Status: Acute (2) Chronic atrial fibrillation: Status: Acute Assessment and Plan: Last echocardiogram from December reviewed. LVEF 35-40%. Severely dilated left atrium. Mild mitral regurgitation. No evidence of pulmonary hypertension. Chest x-ray reported to have resolving bilateral airspace opacities since prior chest x-ray. Labs reviewed. Hemoglobin is 10.4. White cells 11.8. Platelets 230. Sodium 127. Potassium 45.5. BUN is 27. Creatinine 1.26. Normal baseline at 0.8 a month ago. Cardiac BNP 237. Previously, 1345 in December. In August 2020, it was 2983. HS troponin 30.7. Overall, doubt that cardiac etiology for his shortness of breath is less likely. No need for aggressive diuretics. Fall Risk Details Current Medications: Current Medications Generic Name Dose Route Start Last Admin Trade Name Freq PRN Reason Stop Dose Admin Acetaminophen 650 mg 02/11/21 03:28 02/12/21 03:00 Acetaminophen 325 Mg Tablet PO 650 mg Q6H PRN Administration Pain, Mild (Pain Scale 1-3) Albuterol/Ipratropium 3 ml 02/11/21 08:00 02/12/21 11:25 Albuterol/Iprat 2.5/0.5mg 3 Ml Ampul.Neb INHALE 3 ml RQ4H WHILE AWAKE VENITA Administration Albuterol/Ipratropium 3 ml 02/11/21 03:28 02/12/21 03:14 Albuterol/Iprat 2.5/0.5mg 3 Ml Ampul.Neb INHALE 3 ml RQ4H PRN Administration Shortness of Breath/Wheezing Aspirin 81 mg 02/12/21 11:00 02/12/21 11:43 Aspirin Enteric Coated 81 Mg Tablet.Dr PO 81 mg DAILY VENITA Administration Atorvastatin Calcium 10 mg 02/11/21 21:00 02/11/21 21:10 Atorvastatin Calcium 10 Mg Tablet PO 10 mg BEDTIME VENITA Administration Dabigatran 150 mg 02/11/21 12:00 02/12/21 11:44 Dabigatran Etexilate Mesylate 150 Mg Capsule PO 150 mg BID@1200,2100 VENITA Administration Docusate Sodium 100 mg 02/11/21 05:02 Docusate Sodium 100 Mg Capsule PO DAILY PRN Constipation Docusate Sodium 100 mg 02/12/21 11:00 Docusate Sodium 100 Mg Capsule PO BID VENITA Escitalopram Oxalate 20 mg 02/11/21 12:00 02/12/21 11:44 Escitalopram Oxalate 20 Mg Tablet PO 20 mg DAILY@1200 VENITA Administration Furosemide 20 mg 02/11/21 17:35 02/12/21 09:01 Furosemide 20 Mg/2 Ml Vial IVPUSH 20 mg DAILY VENITA Administration Protocol Hydroxyzine HCl 10 mg 02/11/21 21:00 02/11/21 21:11 Hydroxyzine Hcl 10 Mg Tablet PO 10 mg BEDTIME VENITA Administration Levetiracetam 1,000 mg 02/11/21 12:00 02/12/21 11:44 Levetiracetam 1,000 Mg Tablet PO 1,000 mg BID@1200,2100 VENITA Administration Lidocaine 1 patch 02/11/21 05:59 02/12/21 11:43 Lidocaine 4 % Patch Adh..Patch TRANSDERMA 1 patch DAILY PRN Administration pain Protocol Magnesium Hydroxide 15 ml 02/11/21 06:03 02/12/21 05:12 Milk Of Magnesia 30 Ml Oral.Susp PO 15 ml BEDTIME PRN Administration constip Melatonin 9 mg 02/11/21 21:00 02/11/21 21:10 Melatonin 3 Mg Tablet PO 9 mg BEDTIME VENITA Administration Methylprednisolone Sodium Succinate 40 mg 02/11/21 03:30 02/12/21 02:53 Methylprednisolone Sod Succ 40 Mg/Ml Vial IVPUSH 40 mg Q12H VENITA Administration Metoprolol Succinate 25 mg 02/11/21 09:00 02/12/21 09:08 Metoprolol Succinate Er 25 Mg Tab.Er.24h PO 25 mg DAILY VENITA Administration Protocol Omeprazole 20 mg 02/11/21 09:00 02/12/21 09:03 Omeprazole 20 Mg Capsule.Dr PO 20 mg DAILY VENITA Administration Ondansetron HCl 4 mg 02/11/21 05:02 Ondansetron Hcl 4 Mg/2 Ml Vial IVPUSH Q8H PRN Nausea and Vomiting Oxcarbazepine 300 mg 02/11/21 12:00 02/12/21 11:46 Oxcarbazepine 300 Mg Tablet PO 300 mg BID@1200,2100 VENITA Administration Polyethylene Glycol 17 gm 02/11/21 09:00 02/12/21 10:12 Polyethylene Glycol 3350 17 Gm Powd.Pack PO 17 gm DAILY VENITA Administration Simethicone 80 mg 02/12/21 12:00 02/12/21 11:43 Simethicone 80 Mg Tab.Chew PO 80 mg QIDWMHS VENITA Administration Sodium Chloride 3 ml 02/11/21 08:00 02/12/21 09:08 0.9 % Sodium Chloride Flush 3 Ml Syringe IVFLUSH 3 ml QSHIFT VENITA Administration Tizanidine HCl 2 mg 02/11/21 09:00 02/12/21 09:07 Tizanidine Hcl 4 Mg Tablet PO 2 mg TID VENITA Administration Time Spent With Patient Time: Total time spent is greater than 50% in coordination of care (as documented) at patient's floor/unit and/or counseling patient: Time with patient: less than 15 minutes Progress Note: Quality Stroke Does the patient have a stroke diagnosis?: No Procedures Date of Service Date of Service: 02/12/21
[2021-02-12] MEDS: Docusate Sodium 100 MG CAPSULE PO ×2 (12:33→20:37)
--- NOTE | 2021-02-12 13:10 | HO.PM.IMPN ---
Subjective Subjective Date of Service: 02/12/21 Interval History: the patient was seen and evaluated this morning Laying in bed, complaining of pain his left foot meals the tips of the toes with bluish discoloration Breathing has improved since coming in Denies any fever, chills or chest pain No reported other overnight events. Systemic review: No fever, chills or weakness No chest pain, palpitation No shortness of breath or coughing No abdominal pain, nausea or vomiting No urinary symptoms Bluish discoloration of the tips of his toes he Physical Exam Vital Signs: Vital Signs: Last Vital Signs Temp 97.9 F 02/12/21 11:37 Pulse 82 02/12/21 11:37 Resp 18 02/12/21 11:37 BP 122/53 L 02/12/21 11:37 Pulse Ox 93 02/12/21 11:37 Body Mass Index 40.2 Const: Other: Constitutional : Alert, oriented, in night distress from pain Neck : Normal inspection, Supple Cardiovascular : RRR, S1 S2, no lower extremity edema Respiratory : Failure bilateral air entry, basal fine crackles, wheezes or rhonchi Gastrointestinal: soft, lax, Normal bowel sounds, Non tender Skin : Warm/Dry, bluish discoloration as the toe tips with increased tenderness Neurological : Alert & oriented x3, hemiparesis with the left side Objective Data Current Medications Generic Name Dose Route Start Last Admin Trade Name Freq PRN Reason Stop Dose Admin Acetaminophen 650 mg 02/11/21 03:28 02/12/21 03:00 Acetaminophen 325 Mg Tablet PO 650 mg Q6H PRN Administration Pain, Mild (Pain Scale 1-3) Albuterol/Ipratropium 3 ml 02/11/21 08:00 02/12/21 11:25 Albuterol/Iprat 2.5/0.5mg 3 Ml Ampul.Neb INHALE 3 ml RQ4H WHILE AWAKE VENITA Administration Albuterol/Ipratropium 3 ml 02/11/21 03:28 02/12/21 03:14 Albuterol/Iprat 2.5/0.5mg 3 Ml Ampul.Neb INHALE 3 ml RQ4H PRN Administration Shortness of Breath/Wheezing Aspirin 81 mg 02/12/21 11:00 02/12/21 11:43 Aspirin Enteric Coated 81 Mg Tablet. PO 81 mg DAILY VENITA Administration Atorvastatin Calcium 10 mg 02/11/21 21:00 02/11/21 21:10 Atorvastatin Calcium 10 Mg Tablet PO 10 mg BEDTIME VENITA Administration Dabigatran 150 mg 02/11/21 12:00 02/12/21 11:44 Dabigatran Etexilate Mesylate 150 Mg Capsule PO 150 mg BID@1200,2100 VENITA Administration Docusate Sodium 100 mg 02/11/21 05:02 Docusate Sodium 100 Mg Capsule PO DAILY PRN Constipation Docusate Sodium 100 mg 02/12/21 11:00 02/12/21 12:33 Docusate Sodium 100 Mg Capsule PO 100 mg BID VENITA Administration Escitalopram Oxalate 20 mg 02/11/21 12:00 02/12/21 11:44 Escitalopram Oxalate 20 Mg Tablet PO 20 mg DAILY@1200 VENITA Administration Furosemide 20 mg 02/11/21 17:35 02/12/21 09:01 Furosemide 20 Mg/2 Ml Vial IVPUSH 20 mg DAILY VENITA Administration Protocol Hydroxyzine HCl 10 mg 02/11/21 21:00 02/11/21 21:11 Hydroxyzine Hcl 10 Mg Tablet PO 10 mg BEDTIME VENITA Administration Levetiracetam 1,000 mg 02/11/21 12:00 02/12/21 11:44 Levetiracetam 1,000 Mg Tablet PO 1,000 mg BID@1200,2100 VENITA Administration Lidocaine 1 patch 02/11/21 05:59 02/12/21 11:43 Lidocaine 4 % Patch Adh..Patch TRANSDERMA 1 patch DAILY PRN Administration pain Protocol Magnesium Hydroxide 15 ml 02/11/21 06:03 02/12/21 05:12 Milk Of Magnesia 30 Ml Oral.Susp PO 15 ml BEDTIME PRN Administration constip Melatonin 9 mg 02/11/21 21:00 02/11/21 21:10 Melatonin 3 Mg Tablet PO 9 mg BEDTIME VENITA Administration Methylprednisolone Sodium Succinate 40 mg 02/11/21 03:30 02/12/21 02:53 Methylprednisolone Sod Succ 40 Mg/Ml Vial IVPUSH 40 mg Q12H VENITA Administration Metoprolol Succinate 25 mg 02/11/21 09:00 02/12/21 09:08 Metoprolol Succinate Er 25 Mg Tab.Er.24h PO 25 mg DAILY VENITA Administration Protocol Morphine Sulfate 2 mg 02/12/21 12:06 Morphine Sulfate 2 Mg/Ml Cartridge IVPUSH Q4H PRN Pain, Severe (Pain Scale 7-10) Omeprazole 20 mg 02/11/21 09:00 02/12/21 09:03 Omeprazole 20 Mg Capsule.Dr PO 20 mg DAILY VENITA Administration Ondansetron HCl 4 mg 02/11/21 05:02 Ondansetron Hcl 4 Mg/2 Ml Vial IVPUSH Q8H PRN Nausea and Vomiting Oxcarbazepine 300 mg 02/11/21 12:00 02/12/21 11:46 Oxcarbazepine 300 Mg Tablet PO 300 mg BID@1200,2100 VENITA Administration Polyethylene Glycol 17 gm 02/11/21 09:00 02/12/21 10:12 Polyethylene Glycol 3350 17 Gm Powd.Pack PO 17 gm DAILY VENITA Administration Simethicone 80 mg 02/12/21 12:00 02/12/21 11:43 Simethicone 80 Mg Tab.Chew PO 80 mg QIDWMHS VENITA Administration Sodium Chloride 3 ml 02/11/21 08:00 02/12/21 09:08 0.9 % Sodium Chloride Flush 3 Ml Syringe IVFLUSH 3 ml QSHIFT VENITA Administration Tizanidine HCl 2 mg 02/11/21 09:00 02/12/21 09:07 Tizanidine Hcl 4 Mg Tablet PO 2 mg TID VENITA Administration Labs CBC & Chem 7: 02/12/21 06:12 02/12/21 06:12 Labs: Laboratory Results - last 24 hr 02/12/21 02/12/21 02/12/21 06:12 06:12 06:12 WBC 8.5 RBC 3.41 L Hgb 8.8 L Hct 27.2 L MCV 79.8 L MCH 25.8 L MCHC 32.4 RDW 16.5 H Plt Count 211 MPV 9.8 Immature Gran % (Auto) 0.5 H Neut % (Auto) 91.7 H Lymph % (Auto) 5.7 L [place] % (Auto) 2.0 Eos % (Auto) 0.0 Baso % (Auto) 0.1 Lymph # (Auto) 0.5 L [place] # (Auto) 0.2 Eos # (Auto) 0.0 Baso # (Auto) 0.0 Abs Immat Gran (auto) 0.04 H Absolute Neuts (auto) 7.8 Absolute Nucleated RBC 0.000 Nucleated RBC % (auto) 0.0 Smear Tech's Comments VERIFIED Sodium 127 L Potassium 5.5 H Chloride 92 L Carbon Dioxide 25 Anion Gap 16 BUN 27 H Creatinine 1.26 Estim Creat Clear Calc 75.5 Estimated GFR 58 Random Glucose 111 Calcium 9.5 B-Natriuretic Peptide 237 H Microbiology Microbiology Results: Microbiology 02/10/21 22:30 Blood Culture - Preliminary Blood - Venous No growth after 24 hours. 02/10/21 22:25 Blood Culture - Preliminary Blood - Venous No growth after 24 hours. Quality Stroke Does the patient have a stroke diagnosis?: No VTE Prior VTE?: No VTE Risk Level:: Medical - moderate - high VTE Device Contraindication: Treatment Not Indicated VTE Drug Contraindication: N/A - Med Ordered Assessment and Plan (1) Dyspnea: Status: Acute (2) Asthma exacerbation: Status: Acute (3) Abdominal pain: Status: Acute (4) JAYLON (acute kidney injury): Status: Acute (5) Raynaud disease: Status: Acute (6) Hyponatremia: Status: Acute (7) Anemia: Status: Acute (8) Constipation: Status: Acute Assessment and Plan: 65-year-old male with past medical history of asthma, as well as CHF who presents to the hospital with complaints of shortness of breath found to have asthma exacerbation as well as possible CHF with hyponatremia # peripheral artery disease # Hx of Raynaud phenomona Presentation with persistent toes tips bluish discoloration in the left foot with pain Has palpable pulses arterial Doppler negative for any abnormality Start baby aspirin To get vascular surgery evaluation # asthma/COPD exacerbation Improving Continue IV Solu-Medrol Continue bronchodilator nebulizers a # abdominal pain 2/[address] abdomen negative for any colitis or any other etiology such as small-bowel obstruction or ileus for the abdominal pain start with bowel regimen of MiraLax and Colace # hyponatremia acute on chronic Fluid discontinued Nephrology input appreciated # JAYLON secondary to dehydration versus CHF Improving, follow BMP # CHF does not appear to be in volume overload clinically continue home Lasix of 20 mg Cardiology input appreciated # hypertension Hold valsartan for Jaylon consider adding calcium channel arpan outpatient for management of Raynaud's phenomenon as well as hypertension # hld continue statin DVT prophylaxis: heparin
[2021-02-12] MEDS: Morphine Sulfate 2 MG/ML CARTRIDGE IVPUSH ×2 (13:29→17:45)
[2021-02-12] MEDS: Glycerin Adult SUPP.RECT 1 SUPP PR (14:43)
--- NOTE | 2021-02-12 14:48 | P.PNNP_ITS ---
Subjective Subjective Date of Service: 02/12/21 Interval history: the patient was seen and evaluated this PM Laying in bed, complaining of pain his back Physical Exam Vital Signs: Vital Signs: Last Vital Signs Temp 97.9 F 02/12/21 11:37 Pulse 82 02/12/21 11:37 Resp 18 02/12/21 11:37 BP 122/53 L 02/12/21 11:37 Pulse Ox 93 02/12/21 11:37 Body Mass Index 40.2 Const: General: cooperative Orientation/consciousness: patient oriented x3 HENMT: Other: Unremarkable Eyes: General: appearance normal, both eyes and all related structures Neck: Neck: Yes normal visual inspection Chest: Chest palpation & inspection: normal inspection of the chest Resp: Other: Difficult to auscultate; no obvious crackles or wheeze Effort & Inspection: normal respiratory effort, able to speak in complete sentences and decreased respiratory effort Cardio: Jugular venous distension: no JVD Palpation: normal PMI Rate: regular rate Rhythm: regular rhythm Heart sounds: S1 normal heart sound present, S2 normal heart sound present, no gallops, no murmurs and no rubs GI: Other: Obese abdomen, patient tenses his abdominal muscle every time I try to examine him therefore was very difficult to examine the abdomen, appears uncomfortable every time I tried to examine and push deeply Palpation (GI): Soft to palpation and Rigid due to palpation Back/Spine/Pelvis: Other: unremarkable Skin: General skin exam: no rashes or lesions noted Neuro: General: patient oriented x3 Cranial nerves: Yes Other cranial nerve findings present Cognition (Neuro): normal cognition Extrem: Other: Trace pedal edema, has blue discoloration of left toes with palpable peripheral pulses General: Yes normal to inspection, Yes edema (1+) and Yes pedal edema (Left LE 1+) Psych: Mental Status: other Objective Data Labs CBC & Chem 7: 02/12/21 06:12 02/12/21 06:12 Labs: Laboratory Results - last 24 hr 02/12/21 02/12/21 02/12/21 06:12 06:12 06:12 WBC 8.5 RBC 3.41 L Hgb 8.8 L Hct 27.2 L MCV 79.8 L MCH 25.8 L MCHC 32.4 RDW 16.5 H Plt Count 211 MPV 9.8 Immature Gran % (Auto) 0.5 H Neut % (Auto) 91.7 H Lymph % (Auto) 5.7 L [place] % (Auto) 2.0 Eos % (Auto) 0.0 Baso % (Auto) 0.1 Lymph # (Auto) 0.5 L [place] # (Auto) 0.2 Eos # (Auto) 0.0 Baso # (Auto) 0.0 Abs Immat Gran (auto) 0.04 H Absolute Neuts (auto) 7.8 Absolute Nucleated RBC 0.000 Nucleated RBC % (auto) 0.0 Smear Tech's Comments VERIFIED Sodium 127 L Potassium 5.5 H Chloride 92 L Carbon Dioxide 25 Anion Gap 16 BUN 27 H Creatinine 1.26 Estim Creat Clear Calc 75.5 Estimated GFR 58 Random Glucose 111 Calcium 9.5 B-Natriuretic Peptide 237 H Microbiology Microbiology Results: Microbiology 02/10/21 22:30 Blood - Venous Blood Culture - Preliminary No growth after 24 hours. 02/10/21 22:25 Blood - Venous Blood Culture - Preliminary No growth after 24 hours. Assessment & Plan Assessment and plan (1) Dyspnea: Status: Acute (2) Asthma exacerbation: Status: Acute (3) Abdominal pain: Status: Acute (4) SHAVON (acute kidney injury): Status: Acute (5) Raynaud disease: Status: Acute (6) Hyponatremia: Status: Acute (7) Anemia: Status: Acute (8) Constipation: Status: Acute Assessment and Plan: 65-year-old male with past medical history of asthma, as well as CHF who presents to the hospital with complaints of shortness of breath found to have asthma exacerbation as well as possible CHF with hyponatremia 1. 65-year-old male with acute kidney injury. Acute kidney injury in this patient likely secondary to renal hypoperfusion. Initially, concern about dehydration but I do not think he is dehydrated at this juncture. He was not on any nephrotoxic agents based on the information available to me. Imaging of the abdomen did not show any obstructive uropathy/hydronephrosis. 2. Chronic kidney disease stage 2 at baseline. 3. Asthma exacerbation. 4. Question of congestive heart failure. 5. Hypertension. 6. Hyperkalemia RECOMMENDATIONS: No need for IV fluids. IV lasix as ordered The patient is presently on Solu-Medrol and bronchodilators for the asthma. We should continue with his antihypertensive regimen. Off ARB - valsartan, which can worsen his renal hypoperfusion. We can restart this medication after his renal function improves. In regard to hyponatremia- fluid restriction of 1500 mL per day. One dose Kayexalate 30 g ordered Low K diet Thank you for allowing me to participate in medical management of the patient. Time Spent With Patient Time: Total time spent is greater than 50% in coordination of care (as document ed) at patient's floor/unit and/or counseling patient: Procedures Date of Service Date of Service: 02/12/21 Progress Note: Quality Stroke Does the patient have a stroke diagnosis?: No
[2021-02-12] MEDS: Sodium Polystyrene Sulfon/Sorb 15 GM/60 ML ORAL.SUSP 30 GM PO (16:13)
[2021-02-12] MEDS: Melatonin 3 MG TABLET 9 MG PO (20:38)
[2021-02-12] MEDS: Atorvastatin Calcium 10 MG TABLET PO (20:38)
[2021-02-12] MEDS: hydrOXYzine HCL 10 MG TABLET PO (20:38)
[2021-02-13] VITALS (13 sets, daily range): BP systolic 119–170; BP diastolic 63–88; PULSE 50–94; RESP 16–20; TEMP 36.4–37.6; O2SAT 92–99; BMI 39.4
[2021-02-13] MEDS: Morphine Sulfate 2 MG/ML CARTRIDGE IVPUSH ×4 (00:53→22:47)
[2021-02-13 01:16] LABS: Anion Gap 16 (12-20); Blood Urea Nitrogen 20 mg/dL (9-16); Calcium 9.6 mg/dL (8.4-10.2); Carbon Dioxide 26 mmol/L (22-29); Chloride 92 mmol/L (96-108); Estimated Glomerular Filt Rate > 60; Glucose Random 120 mg/dL (60-115); Potassium 4.7 mmol/L (3.3-5.1); Sodium 129 mmol/L (135-145)
[2021-02-13] MEDS: methylPREDNISolone Sod Succ 40 MG/ML VIAL IVPUSH (02:45)
[2021-02-13 06:14] LABS: Hematocrit 29.8 % (42-52); Hemoglobin 9.7 g/dl (14.0-18.0); Mean Corpuscular HGB Conc 32.6 g/dl (31.0-36.0); Mean Corpuscular Hemoglobin 25.9 pg (27.0-33.0); Mean Corpuscular Volume 79.7 fL (80-98); Mean Platelet Volume 9.2 fL (9.4-12.4); Platelet Count 247 X10*3/uL (160-400); Red Blood Count 3.74 X10*6/uL (4.60-5.80); Red Cell Distribution Width 16.6 % (11.0-16.0); White Blood Count 12.5 X10*3/uL (4.8-10.8)
[2021-02-13 06:37] LABS: Anion Gap 15 (12-20); Blood Urea Nitrogen 19 mg/dL (9-16); Calcium 9.8 mg/dL (8.4-10.2); Carbon Dioxide 28 mmol/L (22-29); Chloride 93 mmol/L (96-108); Creatinine Clr Calc Pharmacy 116.2; Estimated Glomerular Filt Rate > 60; Glucose Random 94 mg/dL (60-115); Potassium 4.5 mmol/L (3.3-5.1); Sodium 131 mmol/L (135-145)
[2021-02-13] MEDS: Albuterol/Iprat 2.5/0.5MG 3 ML AMPUL.NEB INHALE ×4 (07:22→19:41)
[2021-02-13] MEDS: Simethicone 80 MG TAB.CHEW PO ×4 (08:28→20:53)
[2021-02-13] MEDS: polyethylene glycoL 3350 17 GM POWD.PACK PO (08:28)
[2021-02-13] MEDS: TiZANidine HCL 4 MG TABLET 2 MG PO ×3 (08:28→20:54)
[2021-02-13] MEDS: Furosemide 20 MG/2 ML VIAL IVPUSH (08:28)
[2021-02-13] MEDS: Aspirin Enteric Coated 81 MG TABLET.DR PO (08:29)
[2021-02-13] MEDS: 0.9 % Sodium Chloride Flush 3 ML SYRINGE IVFLUSH ×3 (08:29→20:55)
[2021-02-13] MEDS: Metoprolol Succinate ER 25 MG TAB.ER.24H PO (08:29)
[2021-02-13] MEDS: Omeprazole 20 MG CAPSULE.DR PO (08:29)
[2021-02-13] MEDS: Docusate Sodium 100 MG CAPSULE PO ×2 (08:29→20:53)
--- NOTE | 2021-02-13 10:43 | MHC.SL.SWA ---
Speech Pathologist Impression: Risk of Aspiration Risk of Aspiration Due to: Neurological Condition History of Pneumonia Dysphasia Diet Status: No Change Liquid Consistency and Strategies for Safe Swallow: Liquid Intake Recommendation: Thin Liquid Intake Strategies: Small Sips Solid Food Consistency: Dietary Recommendations: Regular Additional Modifications to Solid Foods: Pills whole in puree or liquid per tolerance/preference Oral Medication Intake: Whole with Puree Compensatory Strategies and Precautions to be Taken for Safe Swallow: Small Bites and Sips Alternate Liquids/Solids Rate of Ingestion Change Supervision While Eating and Drinking for Safe Swallow: Total Assistance Swallowing Recommended Treatments: Compens. Strategy Educat. Recommendation for Speech: Inpatient Speech Therapy Comment: Recommend total assistance during meals due to left side weakness. Pills to be whole in puree or liquid per patient tolerance/preference. Further ST intervention is no longer warranted. Please re-refer if there are any changes or if [employer] can be of further assistance. Regional Sales Representative Clinican/Clinical Fellow: No Supervisory Statement: I have reviewed and agree with the student/clinical fellow's documentation: N/A Speech Language Pathologist: Lizbeth Zacarias M.A., CCC-[employer]TENA[employer]
--- NOTE | 2021-02-13 11:26 | MHC.CM.PN ---
Patient is not yet medically cleared for dc (?Surgery r/t (L) Blue foot). Home/resume [employer] is the goal for dc and CM will follow for possible need to adjust the dc plan.
[2021-02-13] MEDS: OXcarbazepine 300 MG TABLET PO ×2 (11:29→20:53)
[2021-02-13] MEDS: Escitalopram Oxalate 20 MG TABLET PO (11:29)
[2021-02-13] MEDS: Dabigatran Etexilate Mesylate 150 MG CAPSULE PO ×2 (11:29→20:54)
[2021-02-13] MEDS: Acetaminophen 325 MG TABLET 650 MG PO (11:29)
[2021-02-13] MEDS: levETIRAcetam 1,000 MG TABLET 1000 MG PO ×2 (11:29→20:53)
--- NOTE | 2021-02-13 12:03 | PM.CNGS ---
History of Present Illness Consult details Consult date: 02/13/21 Reason for consult: other (Discolored left lower extremity.) Narrative: Morbidly obese 65-year-old gentleman presents for evaluation of his left lower extremity. Of note he has significant coronary disease along with congestive heart failure. At the time of his admission he was noted to be short of breath. He was subsequently treated for asthma and Congestive heart failure exacerbation. He appears to be doing significantly better. Upon workup she was noted to have discolored left lower extremity toes. He has a known history of Raynaud's disease. Review of Systems Review of Systems: Yes all other systems are reviewed and are negative Constitutional: Constitutional: Reports no additional constitutional complaints ENT: Reports Normal hearing present Cardiovascular: Cardiovascular: Denies chest pain, Denies chest pain at rest, Denies chest pain with activity and Denies pedal edema Respiratory: Respiratory: Denies cough Gastrointestinal: Gastrointestinal: Denies abdominal pain Musculoskeletal: Musculoskeletal: Denies abnormal gait, Denies muscle cramps and Denies radiating pain into limb Integumentary/Breasts: Skin/Breast: Denies skin ulcer and Denies wounds Neurologic: Reports Normal hearing present and Denies abnormal gait Psychiatric: Psychiatric: Reports no additional psychiatric complaints PMFSH Past Medical History Medical History Bradycardia Cardiomyopathy Chronic atrial fibrillation Chronic HFrEF (heart failure with reduced ejection fraction) CVA (cerebral vascular accident) HTN (hypertension) Obesity Family History Family History Father Emphysema lung Mother Cardiovascular disease Social History Social History Household Members: Caregiver Housing: House Do you presently have visiting nurse or other home services: Yes Unable to assess alcohol history related to: Unknown Alcohol intake: never Patient Tobacco Use Status: Never used Tobacco Second Hand Smoke Exposure: No Advance Directives Date on File: 11/23/20 service: No Current occupational status: disabled Meds Allergies Allergy/AdvReac Type Severity Reaction Status Date / Time No Known Allergies Allergy Verified 11/23/20 14:28 Active Medications: Current Medications Generic Name Dose Route Start Last Admin Trade Name Freq PRN Reason Stop Dose Admin Acetaminophen 650 mg 02/11/21 03:28 02/13/21 11:29 Acetaminophen 325 Mg Tablet PO 650 mg Q6H PRN Administration Pain, Mild (Pain Scale 1-3) Albuterol/Ipratropium 3 ml 02/11/21 08:00 02/13/21 11:20 Albuterol/Iprat 2.5/0.5mg 3 Ml Ampul.Neb INHALE 3 ml RQ4H WHILE AWAKE VENITA Administration Albuterol/Ipratropium 3 ml 02/11/21 03:28 02/12/21 03:14 Albuterol/Iprat 2.5/0.5mg 3 Ml Ampul.Neb INHALE 3 ml RQ4H PRN Administration Shortness of Breath/Wheezing Aspirin 81 mg 02/12/21 11:00 02/13/21 08:29 Aspirin Enteric Coated 81 Mg Tablet.Dr PO 81 mg DAILY VENITA Administration Atorvastatin Calcium 10 mg 02/11/21 21:00 02/12/21 20:38 Atorvastatin Calcium 10 Mg Tablet PO 10 mg BEDTIME VENITA Administration Dabigatran 150 mg 02/11/21 12:00 02/13/21 11:29 Dabigatran Etexilate Mesylate 150 Mg Capsule PO 150 mg BID@1200,2100 VENITA Administration Docusate Sodium 100 mg 02/11/21 05:02 Docusate Sodium 100 Mg Capsule PO DAILY PRN Constipation Docusate Sodium 100 mg 02/12/21 11:00 02/13/21 08:29 Docusate Sodium 100 Mg Capsule PO 100 mg BID VENITA Administration Escitalopram Oxalate 20 mg 02/11/21 12:00 02/13/21 11:29 Escitalopram Oxalate 20 Mg Tablet PO 20 mg DAILY@1200 VENITA Administration Furosemide 20 mg 02/11/21 17:35 02/13/21 08:28 Furosemide 20 Mg/2 Ml Vial IVPUSH 20 mg DAILY VENITA Administration Protocol Hydroxyzine HCl 10 mg 02/11/21 21:00 02/12/21 20:38 Hydroxyzine Hcl 10 Mg Tablet PO 10 mg BEDTIME VENITA Administration Levetiracetam 1,000 mg 02/11/21 12:00 02/13/21 11:29 Levetiracetam 1,000 Mg Tablet PO 1,000 mg BID@1200,2100 VENITA Administration Lidocaine 1 patch 02/11/21 05:59 02/12/21 11:43 Lidocaine 4 % Patch Adh..Patch TRANSDERMA 1 patch DAILY PRN Administration pain Protocol Magnesium Hydroxide 15 ml 02/11/21 06:03 02/12/21 05:12 Milk Of Magnesia 30 Ml Oral.Susp PO 15 ml BEDTIME PRN Administration constip Melatonin 9 mg 02/11/21 21:00 02/12/21 20:38 Melatonin 3 Mg Tablet PO 9 mg BEDTIME VENITA Administration Methylprednisolone Sodium Succinate 40 mg 02/11/21 03:30 02/13/21 02:45 Methylprednisolone Sod Succ 40 Mg/Ml Vial IVPUSH 40 mg Q12H VENITA Administration Metoprolol Succinate 25 mg 02/11/21 09:00 02/13/21 08:29 Metoprolol Succinate Er 25 Mg Tab.Er.24h PO 25 mg DAILY VENITA Administration Protocol Morphine Sulfate 2 mg 02/12/21 12:06 02/13/21 08:28 Morphine Sulfate 2 Mg/Ml Cartridge IVPUSH 2 mg Q4H PRN Administration Pain, Severe (Pain Scale 7-10) Omeprazole 20 mg 02/11/21 09:00 02/13/21 08:29 Omeprazole 20 Mg Capsule.Dr PO 20 mg DAILY VENITA Administration Ondansetron HCl 4 mg 02/11/21 05:02 Ondansetron Hcl 4 Mg/2 Ml Vial IVPUSH Q8H PRN Nausea and Vomiting Oxcarbazepine 300 mg 02/11/21 12:00 02/13/21 11:29 Oxcarbazepine 300 Mg Tablet PO 300 mg BID@1200,2100 VENITA Administration Polyethylene Glycol 17 gm 02/11/21 09:00 02/13/21 08:28 Polyethylene Glycol 3350 17 Gm Powd.Pack PO 17 gm DAILY VENITA Administration Simethicone 80 mg 02/12/21 12:00 02/13/21 11:29 Simethicone 80 Mg Tab.Chew PO 80 mg QIDWMHS VENITA Administration Sodium Chloride 3 ml 02/11/21 08:00 02/13/21 08:29 0.9 % Sodium Chloride Flush 3 Ml Syringe IVFLUSH 3 ml QSHIFT VENITA Administration Tizanidine HCl 2 mg 02/11/21 09:00 02/13/21 08:28 Tizanidine Hcl 4 Mg Tablet PO 2 mg TID VENITA Administration Home Medications Medication Instructions Recorded Confirmed Last Taken Type Pradaxa 1 cap PO BID@1200,2100 01/08/2121 Unknown History albuterol sulfate 1 amp INHALATION Q6H 01/08/21 02/11/21 Unknown History citalopram 1 tab PO DAILY@1200 01/08/21 02/11/21 Unknown History hydroxyzine HCl 10 mg PO BEDTIME 01/08/21 02/11/21 Unknown History levetiracetam 1 tab PO BID@1200,2100 01/08/21 02/11/21 Unknown History melatonin 2 tab PO BEDTIME 01/08/21 02/11/21 Unknown History metoprolol succinate 1 tab PO QAM 01/08/21 02/11/21 Unknown History oxcarbazepine 1 tab PO BID@1200,2100 01/08/21 02/11/21 Unknown History pantoprazole 1 tab PO QAM 01/08/21 02/11/21 Unknown History simvastatin 1 tab PO QPM 01/08/21 02/11/21 Unknown History tizanidine 0.5 tab PO TID 01/08/21 02/11/21 Unknown History albuterol sulfate [ProAir HFA] 2 puff INHALATION Q4-6H PRN 02/11/21 02/11/21 Unknown History Physical Exam Vital Signs: Vital Signs: Last Vital Signs Temp 97.9 F 02/13/21 11:54 Pulse 80 02/13/21 11:54 Resp 16 02/13/21 11:54 BP 138/76 02/13/21 11:54 Pulse Ox 94 02/13/21 11:54 Body Mass Index 39.4 Const: General: cooperative, healthy appearing and comfortable Orientation/consciousness: oriented to person, oriented to place and oriented to time HENMT: Head: Yes normal to inspection Neck: Neck: Yes normal visual inspection Carotids: no bruits Chest: Chest palpation & inspection: normal inspection of the chest Resp: Effort & Inspection: normal respiratory effort and able to speak in complete sentences Auscultation: clear to auscultation bilaterally, no crackles, no rales, no rhonchi and no wheezes Cardio: Rate: regular rate Rhythm: regular rhythm Heart sounds: S1 normal heart sound present and S2 normal heart sound present Bruits: no carotid bruits Peripheral pulses: Peripheral pulses 2+ throughout and dorsalis pedis present (Palpable left DP) GI: Inspection: Yes normal to inspection Skin: Other: Discoloration of left lower extremity toes. Wounds: no wounds Hair: normal Neuro: General: oriented to person, oriented to place and oriented to time Cranial nerves: Yes CN's II-XII intact bilaterally and Yes Normal hearing present Cognition (Neuro): normal cognition Motor exam (neuro): 5/5 motor strength present throughout Extrem: Other: venous exam: No significant superficial varicosities or spider telangiectasias, minimal edema General: No clubbing, No cyanosis and No edema Psych: Appearance: grossly normal Mental Status: mental status grossly normal Speech and movement: Normal speech and movement present Results Labs Result diagrams: 02/13/21 05:49 02/13/21 05:49 Labs: Abnormal lab results 02/13/21 02/13/21 02/13/21 Range/Units 00:36 05:49 05:49 WBC 12.5 H (4.8-10.8) X10*3/uL RBC 3.74 L (4.60-5.80) X10*6/uL Hgb 9.7 L (14.0-18.0) g/dl Hct 29.8 L (42-52) % MCV 79.7 L (80-98) fL MCH 25.9 L (27.0-33.0) pg RDW 16.6 H (11.0-16.0) % MPV 9.2 L (9.4-12.4) fL Sodium 129 L 131 L (135-145) mmol/L Chloride 92 L 93 L (96-108) mmol/L BUN 20 H 19 H (9-16) mg/dL Random Glucose 120 H (60-115) mg/dL Short CBC 02/13/21 Range/Units 05:49 WBC 12.5 H (4.8-10.8) X10*3/uL Hgb 9.7 L (14.0-18.0) g/dl Hct 29.8 L (42-52) % Plt Count 247 (160-400) X10*3/uL BMP 02/13/21 02/13/21 00:36 05:49 Sodium 129 L 131 L Potassium 4.7 4.5 Chloride 92 L 93 L Carbon Dioxide 26 28 BUN 20 H 19 H Creatinine 0.85 0.81 Calcium 9.6 9.8 Urine 02/10/21 Range/Units 23:31 Urine Color YELLOW Urine Appearance CLEAR Urine pH 6.0 (5.0-8.0) Ur Specific [place] <= 1.005 (1.005-1.025) Urine Protein NEG (NEG-TRACE) MG/DL Urine Glucose (UA) NEG (NEG) MG/DL All other labs normal. Assessment and Plan (1) Raynaud disease: Qualifiers: Raynaud?s-associated gangrene presence: without gangrene Qualified Code(s): I73.00 - Raynaud's syndrome without gangrene Status: Acute In short the patient may have an element of Raynaud's syndrome. I have discussed the pathophysiology with the patient, inclusive of spasming of the vessels and change in color of digits from white, red, and blue. We have discussed prevention inclusive of protection hand and feet at all times, reduction of caffeine intake, and reduction of stressors. Also smoking cessation may help improve issues. At the current time the patient appears to be stable, and a palpable dorsalis pedis pulse. Should this persist may need follow-up with Rheumatology and use a calcium channel arpan. The patient will follow up with us on an as-needed basis. Procedures Date of Service Date of Service: 02/13/21
--- NOTE | 2021-02-13 14:34 | P.PNIM_ITS ---
Subjective Subjective Date of Service: 02/13/21 Interval History: the patient was seen and evaluated this morning Laying in bed, complaining of pain his left foot in the tips of the toes with bluish discoloration Still constipated and not having bowel movements Breathing has improved Denies any fever, chills or chest pain No reported other overnight events. Systemic review: No fever, chills or weakness No chest pain, palpitation No shortness of breath or coughing No abdominal pain, nausea or vomiting No urinary symptoms Bluish discoloration of the tips of his toes he Physical Exam Vital Signs: Vital Signs: Last Vital Signs Temp 97.9 F 02/13/21 11:54 Pulse 80 02/13/21 11:54 Resp 16 02/13/21 11:54 BP 138/76 02/13/21 11:54 Pulse Ox 94 02/13/21 11:54 Body Mass Index 39.4 Const: Other: Constitutional : Alert, oriented, in night distress from pain Neck : Normal inspection, Supple Cardiovascular : RRR, S1 S2, no lower extremity edema Respiratory : Failure bilateral air entry, basal fine crackles, wheezes or rhonchi Gastrointestinal: soft, lax, Normal bowel sounds, Non tender Skin : Warm/Dry, bluish discoloration as the toe tips with increased tenderness Neurological : Alert & oriented x3, hemiparesis with the left side weakness Objective Data Current Medications Generic Name Dose Route Start Last Admin Trade Name Freq PRN Reason Stop Dose Admin Acetaminophen 650 mg 02/11/21 03:28 02/13/21 11:29 Acetaminophen 325 Mg Tablet PO 650 mg Q6H PRN Administration Pain, Mild (Pain Scale 1-3) Albuterol/Ipratropium 3 ml 02/11/21 08:00 02/13/21 11:20 Albuterol/Iprat 2.5/0.5mg 3 Ml Ampul.Neb INHALE 3 ml RQ4H WHILE AWAKE VENITA Administration Albuterol/Ipratropium 3 ml 02/11/21 03:28 02/12/21 03:14 Albuterol/Iprat 2.5/0.5mg 3 Ml Ampul.Neb INHALE 3 ml RQ4H PRN Administration Shortness of Breath/Wheezing Aspirin 81 mg 02/12/21 11:00 02/13/21 08:29 Aspirin Enteric Coated 81 Mg Tablet.Dr PO 81 mg DAILY VENITA Administration Atorvastatin Calcium 10 mg 02/11/21 21:00 02/12/21 20:38 Atorvastatin Calcium 10 Mg Tablet PO 10 mg BEDTIME VENITA Administration Dabigatran 150 mg 02/11/21 12:00 02/13/21 11:29 Dabigatran Etexilate Mesylate 150 Mg Capsule PO 150 mg BID@1200,2100 VENITA Administration Docusate Sodium 100 mg 02/11/21 05:02 Docusate Sodium 100 Mg Capsule PO DAILY PRN Constipation Docusate Sodium 100 mg 02/12/21 11:00 02/13/21 08:29 Docusate Sodium 100 Mg Capsule PO 100 mg BID VENITA Administration Escitalopram Oxalate 20 mg 02/11/21 12:00 02/13/21 11:29 Escitalopram Oxalate 20 Mg Tablet PO 20 mg DAILY@1200 VENITA Administration Furosemide 20 mg 02/11/21 17:35 02/13/21 08:28 Furosemide 20 Mg/2 Ml Vial IVPUSH 20 mg DAILY VENITA Administration Protocol Hydroxyzine HCl 10 mg 02/11/21 21:00 02/12/21 20:38 Hydroxyzine Hcl 10 Mg Tablet PO 10 mg BEDTIME VENITA Administration Levetiracetam 1,000 mg 02/11/21 12:00 02/13/21 11:29 Levetiracetam 1,000 Mg Tablet PO 1,000 mg BID@1200,2100 VENITA Administration Lidocaine 1 patch 02/11/21 05:59 02/12/21 11:43 Lidocaine 4 % Patch Adh..Patch TRANSDERMA 1 patch DAILY PRN Administration pain Protocol Magnesium Hydroxide 15 ml 02/11/21 06:03 02/12/21 05:12 Milk Of Magnesia 30 Ml Oral.Susp PO 15 ml BEDTIME PRN Administration constip Melatonin 9 mg 02/11/21 21:00 02/12/21 20:38 Melatonin 3 Mg Tablet PO 9 mg BEDTIME VENITA Administration Methylprednisolone Sodium Succinate 40 mg 02/11/21 03:30 02/13/21 02:45 Methylprednisolone Sod Succ 40 Mg/Ml Vial IVPUSH 40 mg Q12H VENITA Administration Metoprolol Succinate 25 mg 02/11/21 09:00 02/13/21 08:29 Metoprolol Succinate Er 25 Mg Tab.Er.24h PO 25 mg DAILY VENITA Administration Protocol Morphine Sulfate 2 mg 02/12/21 12:06 02/13/21 08:28 Morphine Sulfate 2 Mg/Ml Cartridge IVPUSH 2 mg Q4H PRN Administration Pain, Severe (Pain Scale 7-10) Omeprazole 20 mg 02/11/21 09:00 02/13/21 08:29 Omeprazole 20 Mg Capsule.Dr PO 20 mg DAILY VENITA Administration Ondansetron HCl 4 mg 02/11/21 05:02 Ondansetron Hcl 4 Mg/2 Ml Vial IVPUSH Q8H PRN Nausea and Vomiting Oxcarbazepine 300 mg 02/11/21 12:00 02/13/21 11:29 Oxcarbazepine 300 Mg Tablet PO 300 mg BID@1200,2100 VENITA Administration Polyethylene Glycol 17 gm 02/11/21 09:00 02/13/21 08:28 Polyethylene Glycol 3350 17 Gm Powd.Pack PO 17 gm DAILY VENITA Administration Simethicone 80 mg 02/12/21 12:00 02/13/21 11:29 Simethicone 80 Mg Tab.Chew PO 80 mg QIDWMHS VENITA Administration Sodium Chloride 3 ml 02/11/21 08:00 02/13/21 08:29 0.9 % Sodium Chloride Flush 3 Ml Syringe IVFLUSH 3 ml QSHIFT VENITA Administration Tizanidine HCl 2 mg 02/11/21 09:00 02/13/21 08:28 Tizanidine Hcl 4 Mg Tablet PO 2 mg TID VENITA Administration Labs CBC & Chem 7: 02/13/21 05:49 02/13/21 05:49 Labs: Laboratory Results - last 24 hr 02/13/21 02/13/21 02/13/21 00:36 05:49 05:49 WBC 12.5 H RBC 3.74 L Hgb 9.7 L Hct 29.8 L MCV 79.7 L MCH 25.9 L MCHC 32.6 RDW 16.6 H Plt Count 247 MPV 9.2 L Absolute Nucleated RBC 0.000 Nucleated RBC % (auto) 0.0 Sodium 129 L 131 L Potassium 4.7 4.5 Chloride 92 L 93 L Carbon Dioxide 26 28 Anion Gap 16 15 BUN 20 H 19 H Creatinine 0.85 0.81 Estim Creat Clear Calc 112.0 116.2 Estimated GFR > 60 > 60 Random Glucose 120 H 94 Calcium 9.6 9.8 Magnesium 2.0 Microbiology Microbiology Results: Microbiology 06/18/21 22:30 Blood Culture - Preliminary Blood - Venous No growth after 48 hours. 02/10/21 22:25 Blood Culture - Preliminary Blood - Venous No growth after 48 hours. Quality Stroke Does the patient have a stroke diagnosis?: No VTE Prior VTE?: No VTE Risk Level:: Medical - moderate - high VTE Device Contraindication: Treatment Not Indicated VTE Drug Contraindication: N/A - Med Ordered Assessment and Plan (1) Dyspnea: Status: Acute (2) Asthma exacerbation: Status: Acute (3) Abdominal pain: Status: Acute (4) JAYLON (acute kidney injury): Status: Acute (5) Raynaud disease: Status: Acute (6) Hyponatremia: Status: Acute (7) Anemia: Status: Acute (8) Constipation: Status: Acute Assessment and Plan: 65-year-old male with past medical history of asthma, as well as CHF who present s to the hospital with complaints of shortness of breath found to have asthma exacerbation as well as possible CHF with hyponatremia # peripheral artery disease # Hx of Raynaud phenomona Presentation with persistent toes tips bluish discoloration in the left foot with pain Has palpable pulses arterial Doppler negative for any abnormality suggestive of persistent Raynaud phenomena Discontinue baby aspirin Vascular surgery input appreciated, start if nifedipine, no intervention needed # asthma/COPD exacerbation Improving Discontinue IV Solu-Medrol Start p.o. prednisone Continue bronchodilator nebulizers a # abdominal pain 2/[address] abdomen negative for any colitis or any other etiology such as small-bowel obstruction or ileus for the abdominal pain continue with bowel regimen of MiraLax and Colace To try SSE enema # hyponatremia acute on chronic imrpoving Fluid discontinued Nephrology input appreciated # JAYLON secondary to dehydration versus CHF Improving, follow BMP # CHF does not appear to be in volume overload clinically continue home Lasix of 20 mg Cardiology input appreciated # hypertension Hold valsartan for Jaylon consider adding calcium channel apran outpatient for management of Raynaud's phenomenon as well as hypertension # hld continue statin DVT prophylaxis: heparin
[2021-02-13] MEDS: NIFEdipine ER 30 MG TAB.ER.24 PO (15:17)
[2021-02-13] MEDS: Sodium Phosphate,Mono-Dibasic 133 ML ENEMA PR (16:02)
--- NOTE | 2021-02-13 17:16 | P.PNNP_ITS ---
Subjective Subjective Date of Service: 02/13/21 Interval history: the patient was seen and evaluated this morning Laying in bed Continues to have pain Physical Exam Vital Signs: Vital Signs: Last Vital Signs Temp 98.2 F 02/13/21 15:15 Pulse 68 02/13/21 15:29 Resp 18 02/13/21 15:15 BP 126/69 02/13/21 15:17 Pulse Ox 97 02/13/21 15:15 Body Mass Index 39.4 Other: Constitutional : Alert, oriented, in night distress from pain Neck : Normal inspection, Supple Cardiovascular : RRR, S1 S2, no lower extremity edema Respiratory : Failure bilateral air entry, basal fine crackles, wheezes or rhonchi Gastrointestinal: soft, lax, Normal bowel sounds, Non tender Skin : Warm/Dry, bluish discoloration as the toe tips with increased tenderness Neurological : Alert & oriented x3, hemiparesis with the left side weakness Objective Data Labs CBC & Chem 7: 02/13/21 05:49 02/13/21 05:49 Labs: Laboratory Results - last 24 hr 02/13/21 02/13/21 02/13/21 00:36 05:49 05:49 WBC 12.5 H RBC 3.74 L Hgb 9.7 L Hct 29.8 L MCV 79.7 L MCH 25.9 L MCHC 32.6 RDW 16.6 H Plt Count 247 MPV 9.2 L Absolute Nucleated RBC 0.000 Nucleated RBC % (auto) 0.0 Sodium 129 L 131 L Potassium 4.7 4.5 Chloride 92 L 93 L Carbon Dioxide 26 28 Anion Gap 16 15 BUN 20 H 19 H Creatinine 0.85 0.81 Estim Creat Clear Calc 112.0 116.2 Estimated GFR > 60 > 60 Random Glucose 120 H 94 Calcium 9.6 9.8 Magnesium 2.0 Microbiology Microbiology Results: Microbiology 02/10/21 22:30 Blood - Venous Blood Culture - Preliminary No growth after 48 hours. 02/10/21 22:25 Blood - Venous Blood Culture - Preliminary No growth after 48 hours. Assessment & Plan Time Spent With Patient Time: 65-year-old male with past medical history of asthma, as well as CHF who p resents to the hospital with complaints of shortness of breath found to have asthma exacerbation as well as possible CHF with hyponatremia 1. 65-year-old male with acute kidney injury. Acute kidney injury in this patient likely secondary to renal hypoperfusion. Initially, concern about dehydration but I do not think he is dehydrated at this juncture. He was not on any nephrotoxic agents based on the information available to me. Imaging of the abdomen did not show any obstructive uropathy/hydronephrosis. 2. Chronic kidney disease stage 2 at baseline. 3. Asthma exacerbation. 4. Question of congestive heart failure. 5. Hypertension. 6. Hyperkalemia RECOMMENDATIONS: Cr is back to baseline No need for IV fluids. IV lasix as ordered The patient is presently on Solu-Medrol and bronchodilators for the asthma. We should continue with his antihypertensive regimen. Can restart ARB - valsartan 80 mg daily in 2-3 days In regard to hyponatremia- fluid restriction of 1500 mL per day. Na is better Low K diet Will sign off - Reconsult PRN Thank you for allowing me to participate in medical management of the patient. Total time spent is greater than 50% in coordination of care (as documented) at patient's floor/unit and/or counseling patient: Procedures Date of Service Date of Service: 02/13/21 Progress Note: Quality Stroke Does the patient have a stroke diagnosis?: No
--- NOTE | 2021-02-13 17:19 | PM.PNNEP ---
Subjective Subjective Date of Service: 02/15/21 Interval history: The patient was seen and evaluated this morning Laying in bed Continues to have pain Physical Exam Vital Signs: Vital Signs: Last Vital Signs Temp 98.2 F 02/13/21 15:15 Pulse 68 02/13/21 15:29 Resp 18 02/13/21 15:15 BP 126/69 02/13/21 15:17 Pulse Ox 97 02/13/21 15:15 Body Mass Index 39.4 Objective Data Labs CBC & Chem 7: 02/13/21 05:49 02/14/21 05:38 Labs: Laboratory Results - last 24 hr 02/13/21 02/13/21 02/13/21 00:36 05:49 05:49 WBC 12.5 H RBC 3.74 L Hgb 9.7 L Hct 29.8 L MCV 79.7 L MCH 25.9 L MCHC 32.6 RDW 16.6 H Plt Count 247 MPV 9.2 L Absolute Nucleated RBC 0.000 Nucleated RBC % (auto) 0.0 Sodium 129 L 131 L Potassium 4.7 4.5 Chloride 92 L 93 L Carbon Dioxide 26 28 Anion Gap 16 15 BUN 20 H 19 H Creatinine 0.85 0.81 Estim Creat Clear Calc 112.0 116.2 Estimated GFR > 60 > 60 Random Glucose 120 H 94 Calcium 9.6 9.8 Magnesium 2.0 Microbiology Microbiology Results: Microbiology 02/10/21 22:30 Blood - Venous Blood Culture - Preliminary No growth after 48 hours. 02/10/21 22:25 Blood - Venous Blood Culture - Preliminary No growth after 48 hours. Assessment & Plan Time Spent With Patient Time: Total time spent is greater than 50% in coordination of care (as documented) at patient's floor/unit and/or counseling patient: Procedures Date of Service Date of Service: 02/13/21 Progress Note: Quality Stroke Does the patient have a stroke diagnosis?: No
[2021-02-13] MEDS: Atorvastatin Calcium 10 MG TABLET PO (20:53)
[2021-02-13] MEDS: Melatonin 3 MG TABLET 9 MG PO (20:54)
[2021-02-13] MEDS: hydrOXYzine HCL 10 MG TABLET PO (20:54)
[2021-02-14] VITALS (7 sets, daily range): BP systolic 107–126; BP diastolic 56–81; PULSE 45–80; RESP 18–20; TEMP 36.2–36.5; O2SAT 92–97; BMI 39.2
[2021-02-14] MEDS: Ibuprofen 400 MG TABLET PO (01:40)
[2021-02-14 06:44] LABS: Anion Gap 12 (12-20); Blood Urea Nitrogen 20 mg/dL (9-16); Calcium 8.9 mg/dL (8.4-10.2); Carbon Dioxide 32 mmol/L (22-29); Chloride 91 mmol/L (96-108); Creatinine Clr Calc Pharmacy 111.8; Estimated Glomerular Filt Rate > 60; Glucose Random 82 mg/dL (60-115); Potassium 4.4 mmol/L (3.3-5.1); Sodium 131 mmol/L (135-145)
[2021-02-14] MEDS: polyethylene glycoL 3350 17 GM POWD.PACK PO (08:35)
[2021-02-14] MEDS: Omeprazole 20 MG CAPSULE.DR PO (08:36)
[2021-02-14] MEDS: Docusate Sodium 100 MG CAPSULE PO (08:36)
[2021-02-14] MEDS: NIFEdipine ER 30 MG TAB.ER.24 PO (08:36)
[2021-02-14] MEDS: Simethicone 80 MG TAB.CHEW PO ×2 (08:38→12:49)
[2021-02-14] MEDS: Metoprolol Succinate ER 25 MG TAB.ER.24H PO (08:38)
[2021-02-14] MEDS: TiZANidine HCL 4 MG TABLET 2 MG PO (08:38)
[2021-02-14] MEDS: predniSONE 20 MG TABLET 40 MG PO (08:40)
[2021-02-14] MEDS: Furosemide 20 MG TABLET PO (08:42)
[2021-02-14] MEDS: 0.9 % Sodium Chloride Flush 3 ML SYRINGE IVFLUSH (08:44)
[2021-02-14] MEDS: Acetaminophen 325 MG TABLET 650 MG PO (09:00)
[2021-02-14] MEDS: Albuterol/Iprat 2.5/0.5MG 3 ML AMPUL.NEB INHALE ×2 (09:01→13:19)
--- NOTE | 2021-02-14 11:40 | P.DS_ITS ---
DS: Providers Provider Date of Service: 02/14/21 Date of admission: 02/11/21 03:28 Primary care physician: Adalberto Coleman MD Consults: 02/11/21 05:48 Consult to Nephrology Routine Consulting Provider: [facility] Reason for consultation: hyponatremia 02/11/21 05:53 Consult to Cardiology Routine Consulting Provider: Baldemar Lynch Reason for consultation: CHF exacerbation? Has provider been notified: No 02/12/21 09:58 Consult to Vascular Surgery Routine Consulting Provider: Yayo Mari Reason for consultation: LLE painful blue tip toes for your kind eval. DS: Diagnosis Discharge Diagnosis (1) Dyspnea: Status: Acute (2) Asthma exacerbation: Status: Acute (3) Abdominal pain: Status: Acute (4) SHAVON (acute kidney injury): Status: Acute (5) Raynaud disease: Status: Acute (6) Hyponatremia: Status: Acute (7) Anemia: Status: Acute (8) Constipation: Status: Acute DS: Medications Discharge Medications Home Medications: Home Medications Medication Instructions Recorded Confirmed Pradaxa 1 cap PO BID@1200,2100 01/08/21 02/11/21 citalopram 1 tab PO DAILY@1200 01/08/21 02/11/21 hydroxyzine HCl 10 mg PO BEDTIME 01/08/21 02/11/21 levetiracetam 1 tab PO BID@1200,2100 01/08/21 02/11/21 melatonin 2 tab PO BEDTIME 01/08/21 02/11/21 metoprolol succinate 1 tab PO QAM 01/08/21 02/11/21 oxcarbazepine 1 tab PO BID@1200,2100 01/08/21 02/11/21 pantoprazole 1 tab PO QAM 01/08/21 02/11/21 simvastatin 1 tab PO QPM 01/08/21 02/11/21 tizanidine 0.5 tab PO TID 01/08/21 02/11/21 albuterol sulfate [ProAir HFA] 2 puff INHALATION Q4-6H PRN 02/11/21 02/11/21 Previous Rx's Medication Instructions Recorded acetaminophen [Tylenol] 650 mg PO QID PRN #20 tab 01/11/21 docusate sodium 100 mg PO BEDTIME #30 cap 01/11/21 furosemide 20 mg PO DAILY #30 tab 01/11/21 lidocaine 1 patch TOPICAL DAILY PRN #10 ea 01/11/21 polyethylene glycol 3350 17 g PO BID #30 01/11/21 albuterol sulfate 1 amp INHALATION Q6H #0 ml 02/14/21 chair, wheel [Wheel chair] #1 02/14/21 docusate sodium 100 mg PO BID 30 Days #60 cap 02/14/21 nebulizers #1 02/14/21 nifedipine 30 mg PO DAILY 30 Days #30 tab 02/14/21 polyethylene glycol 3350 17 g PO DAILY 30 Days ea 02/14/21 prednisone 40 mg PO DAILY 3 Days #6 tab 02/14/21 DS: Summary Hospital Course Hospital Course: Hospital note HPI 65-year-old male with past medical history of heart failure with reduced ejection fraction, HTN, CVA, chronic AFib, asthma, Raynaud's phenomenon, chronic anemia, chronic hyponatremia who presents to the hospital with complaints of shortness of breath. Patient reports that he started having shortness of breath this morning, associated with wheezing, no cough or sputum production, no orthopnea or PND, no lower extremity edema. He reports no fever or chills. He also complaining of abdominal pain that is worse on the right lower abdomen, 06/04, nonradiating, associated with nausea vomiting couple of times today, the abdominal pain also started this morning. He has been severely constipated. Denies any urinary symptoms. No chest pain. No palpitations. On arrival to the ED patient hemodynamically stable with no significant abnormal vitals Labs are significant for WBC count of 11.8, hemoglobin of 10.4, sodium of 126 with last sodium of 129 in January 11, potassium 5.7, BUN of 17, creatinine of 1.87 (fourteen and 0.82 in December) BNP of 484, UA negative, CT negative, Abdominal CT shows no acute findings within the abdomen or pelvis to explain the patient's symptoms, moderate stool present within the rectum, Chest x-ray shows no pulmonary congestion and no evidence of pneumonia Patient has at blue discoloration of his left toes, arterial duplex showed no arterial occlusion evident. Hospital course Patient was admitted to the hospital primarily for treatment of difficulty breathing. Started on steroids and bronchodilator nebulizers for asthma exacerbation. Received IV Lasix for presumed CHF exacerbation which was stopped As his fluid status was within normal along with BNP and CXR. His respiratory status improved with a plan to discharge home on steroids and nebulizers. Was mainly complaining of left foot does bluish discoloration increased pain. Evaluated with renal ultrasound of the lower extremity which did not show any abnormal blockage or flow. Evaluated by vascular surgery who recommended medical treatment only. He was started on nifedipine XR with reported improvement in the pain in the lower extremity. Complained of abdominal basis admission as a CT scan showed moderate constipation. Treated with laxatives, any event in suppository with multiple value with movement yesterday and relieve the pain per the patient with improve ment of his abdominal distension and tenderness as well. Evaluated by Nephrology for hyponatremia with recommendation to decreased fluid intake to 1500 cc a day. Discharge plan Discontinue valsartan Start nifedipine 30 mg XR daily for blood pressure control and improvement of the renal weight phenomenal in your toes Can use in ibuprofen as needed for the pain as well, mainly after meals Start Colace and MiraLax on daily with goal to have 1 bowel movement a day Continue prednisone for 3 more days use your nebulizer as prescribed. Decrease fluids intake to 1500 cc daily to follow-up with Dr. De La Torre from Nephrology as outpatient after calling for an appointment Time Spent with Patient Time attestation: Total time spent providing and/or coordinating discharge services: Discharge coordination time: Greater than 30 minutes Quality: Stroke Does the patient have a stroke diagnosis?: No Physical Exam Vital Signs: Vital Signs: Last Vital Signs Temp 97.4 F 02/14/21 11:11 Pulse 57 02/14/21 11:11 Resp 18 02/14/21 11:11 BP 113/56 L 02/14/21 11:11 Pulse Ox 97 02/14/21 11:11 Body Mass Index 39.2 Const: Other: Constitutional : Alert, oriented, Neck : Normal inspection, Supple Cardiovascular : RRR, S1 S2, no lower extremity edema Respiratory : Fair bilateral air entry, no crackles, wheezes or rhonchi Gastrointestinal: soft, lax, Normal bowel sounds, Non tender Skin : Warm/Dry, bluish discoloration as the toe tips with mild tenderness Neurological : Alert & oriented x3, hemiparesis with the left side weakness DS: Data Data Completed and Pending Labs on day of discharge: Laboratory Results - last 24 hr 02/14/21 05:38 Sodium 131 L Potassium 4.4 Chloride 91 L Carbon Dioxide 32 H Anion Gap 12 BUN 20 H Creatinine 0.84 Estim Creat Clear Calc 111.8 Estimated GFR > 60 Random Glucose 82 Calcium 8.9 D Preliminary micro results at discharge 02/10/21 22:30 Blood Culture - Preliminary Blood - Venous No growth after 48 hours. 02/10/21 22:25 Blood Culture - Preliminary Blood - Venous No growth after 48 hours. Discharge Plan Discharge Patient Disposition: Home, Self-Care Discharge Diagnosis: Raynaud phenomena, bluish painful toes Asthma exacerbation Constipation Low sodium level Referrals: Adalberto Coleman MD [Primary Care Provider] - 1 Week Discharge Medications: New nifedipine 30 mg Tablet Extended Release 24hr 30 mg PO DAILY 30 Days Qty: 30 RF: 0 polyethylene glycol 3350 17 gram Powder In Packet 17 g PO DAILY 30 Days RF: 0 prednisone 20 mg Tablet 40 mg PO DAILY 3 Days Qty: 6 RF: 0 docusate sodium 100 mg Capsule 100 mg PO BID 30 Days Qty: 60 RF: 0 (DME) nebulizers Misc See Rx Instructions .ROUTE .MEDSUPPLY Qty: 1 RF: 0 (DME) Wheel chair Kit See Rx Instructions .ROUTE .MEDSUPPLY Qty: 1 RF: 0 Continued citalopram 40 mg tablet 1 tab PO DAILY@1200 RF: 0 tizanidine 4 mg tablet 0.5 tab PO TID RF: 0 oxcarbazepine 300 mg tablet 1 tab PO BID@1200,2100 RF: 0 pantoprazole 40 mg tablet,delayed release (DR/EC) 1 tab PO QAM RF: 0 simvastatin 20 mg tablet 1 tab PO QPM RF: 0 metoprolol succinate 25 mg tablet extended release 24 hr 1 tab PO QAM RF: 0 hydroxyzine HCl 10 mg tablet 10 mg PO BEDTIME RF: 0 levetiracetam 1,000 mg tablet 1 tab PO BID@1200,2100 RF: 0 melatonin 5 mg tablet 2 tab PO BEDTIME RF: 0 Pradaxa 150 mg capsule 1 cap PO BID@1200,2100 RF: 0 polyethylene glycol 3350 17 gram Powder In Packet 17 g PO BID Qty: 30 RF: 0 docusate sodium 100 mg Capsule 100 mg PO BEDTIME Qty: 30 RF: 0 furosemide 20 mg Tablet 20 mg PO DAILY Qty: 30 RF: 0 lidocaine 4 % adhesive patch,medicated 1 patch topical DAILY PRN (Reason: pain) Qty: 10 RF: 0 acetaminophen [Tylenol] 325 mg tablet 650 mg PO QID PRN (Reason: pain) Qty: 20 RF: 0 albuterol sulfate [ProAir HFA] 90 mcg/actuation HFA aerosol inhaler 2 puff inhalation Q4-6H PRN (Reason: Wheezing) RF: 0 albuterol sulfate 2.5 mg /3 mL (0.083 %) solution for nebulization 1 amp inhalation Q6H Qty: 0 RF: 0 Discontinued valsartan 80 mg Tablet 80 mg PO BID Qty: 60 RF: 0 Discharge Orders: Discharge Order (Routine); Ordered 02/14/21 Ordered By: Thu Ma Diet: advance to usual diet and low salt diet Activity on Discharge: As tolerated Stand Alone Forms: Patient Portal Discharge page Care Plan Goals: Read below Health Concerns: Read below Plan of Treatment: You were admitted to the hospital for evaluation of left foot pain, abdominal pain and difficulty breathing. You were found to have asthma exacerbation treated with steroids and nebulizers with good response. To be prescribed a nebulizer to use at home. Your noted to have a moderate constipation that was treated with laxatives and enemas with good response. To continue using laxatives at home. You were evaluated by vascular surgeon as an arterial ultrasound for rule left lower extremity did not show any major blockage. You have a condition called rate do not feel no middle any it has been more chronic. You were started on nifedipine with improvement of the pain. Assessment: Discontinue valsartan Start nifedipine 30 mg XR daily for blood pressure control and improvement of the renal weight phenomenal in your toes Can use in ibuprofen as needed for the pain as well, mainly after meals Start Colace and MiraLax on daily with goal to have 1 bowel movement a day Continue prednisone for 3 more days use your nebulizer as prescribed. Decrease fluids intake to 1500 cc daily to follow-up with jamari De La Torre from Nephrology as outpatient after calling for an appointment
--- NOTE | 2021-02-14 11:57 | MHC.CM.PN ---
pt dcd home no skilled servceis orderdd by pt to resume servceid thru hot cell technician
[2021-02-14] MEDS: Escitalopram Oxalate 20 MG TABLET PO (12:49)
[2021-02-14] MEDS: OXcarbazepine 300 MG TABLET PO (12:49)
[2021-02-14] MEDS: levETIRAcetam 1,000 MG TABLET 1000 MG PO (12:49)
[2021-02-14] MEDS: Dabigatran Etexilate Mesylate 150 MG CAPSULE PO (12:49)
--- NOTE | 2021-02-14 13:31 | MHC.CM.PN ---
called and spoke with pts [facility] thiago [phone] notified him of dc and to confirm he will meet pt at the house will book amd for
--- NOTE | 2021-02-14 14:04 | P.PNVS_ITS ---
Subjective Subjective Date of Service: 02/14/21 Patient reports: no new complaints and feels better Interval history: Patient seen and examined. No interval issues. He notes that his lower extremities do feel better and have decreased in pain. He is anxious to be discharged. Physical Exam Vital Signs: Vital Signs: Last Vital Signs Temp 97.4 F 02/14/21 11:11 Pulse 70 02/14/21 13:19 Resp 18 02/14/21 11:11 BP 113/56 L 02/14/21 11:11 Pulse Ox 97 02/14/21 11:11 Body Mass Index 39.2 Const: General: cooperative, healthy appearing and no acute distress Orientation/consciousness: oriented to person, oriented to place and oriented to time HENMT: Head: Yes normal to inspection Neck: Carotids: no bruits Chest: Chest palpation & inspection: normal inspection of the chest Resp: Effort & Inspection: normal respiratory effort and able to speak in complete sentences Auscultation: clear to auscultation bilaterally Cardio: Rate: regular rate Heart sounds: S1 normal heart sound present and S2 normal heart sound present GI: Inspection: Yes normal to inspection Skin: General skin exam: no rashes or lesions noted and other (Toe discoloration) Wounds: no wounds Neuro: General: oriented to person, oriented to place, oriented to time and CN's II-XI intact bilaterally Extrem: General: Yes normal to inspection, Yes full ROM and Yes no clubbing, cyanosis or edema Psych: Appearance: grossly normal and well kempt Speech and movement: Normal speech and movement present Affect: normal affect Progress Note: A&P Assessment and plan (1) Raynaud disease: Status: Acute Assessment and Plan: In short the patient has an element of her knots disease. He does have palpable pulses in appears to be safe from an arterial standpoint. He appears to be doing better with calcium channel blockers in would continue with that. We did discuss risk factor modification in particular decrease in caffeine hand in foot protection and decrease in stressors. Will hope that the calcium channel blo ckers help his overall situation. Will follow up with us on an as-needed basis. Thank you for allowing us to assist in his care. If there are any questions or concerns please do not hesitate to contact us. Fall Risk Details Current Medications: Current Medications Generic Name Dose Route Start Last Admin Trade Name Freq PRN Reason Stop Dose Admin Acetaminophen 650 mg 02/11/21 03:28 02/14/21 09:00 Acetaminophen 325 Mg Tablet PO 650 mg Q6H PRN Administration Pain, Mild (Pain Scale 1-3) Albuterol/Ipratropium 3 ml 02/11/21 08:00 02/14/21 13:19 Albuterol/Iprat 2.5/0.5mg 3 Ml Ampul.Neb INHALE 3 ml RQ4H WHILE AWAKE VENITA Administration Albuterol/Ipratropium 3 ml 02/11/21 03:28 02/12/21 03:14 Albuterol/Iprat 2.5/0.5mg 3 Ml Ampul.Neb INHALE 3 ml RQ4H PRN Administration Shortness of Breath/Wheezing Atorvastatin Calcium 10 mg 02/11/21 21:00 02/13/21 20:53 Atorvastatin Calcium 10 Mg Tablet PO 10 mg BEDTIME VENITA Administration Dabigatran 150 mg 02/11/21 12:00 02/14/21 12:49 Dabigatran Etexilate Mesylate 150 Mg Capsule PO 150 mg BID@1200,2100 VENITA Administration Docusate Sodium 100 mg 02/11/21 05:02 Docusate Sodium 100 Mg Capsule PO DAILY PRN Constipation Docusate Sodium 100 mg 02/12/21 11:00 02/14/21 08:36 Docusate Sodium 100 Mg Capsule PO 100 mg BID VENITA Administration Escitalopram Oxalate 20 mg 02/11/21 12:00 02/14/21 12:49 Escitalopram Oxalate 20 Mg Tablet PO 20 mg DAILY@1200 VENITA Administration Furosemide 20 mg 02/14/21 09:00 02/14/21 08:42 Furosemide 20 Mg Tablet PO 20 mg DAILY VENITA Administration Protocol Hydroxyzine HCl 10 mg 02/11/21 21:00 02/13/21 20:54 Hydroxyzine Hcl 10 Mg Tablet PO 10 mg BEDTIME VENITA Administration Ibuprofen 400 mg 02/13/21 14:44 02/14/21 01:40 Ibuprofen 400 Mg Tablet PO 400 mg Q6H PRN Administration Pain, Moderate (Pain Scale 4-6 Levetiracetam 1,000 mg 02/11/21 12:00 02/14/21 12:49 Levetiracetam 1,000 Mg Tablet PO 1,000 mg BID@1200,2100 VENITA Administration Lidocaine 1 patch 02/11/21 05:59 02/12/21 11:43 Lidocaine 4 % Patch Adh..Patch TRANSDERMA 1 patch DAILY PRN Administration pain Protocol Magnesium Hydroxide 15 ml 02/11/21 06:03 02/12/21 05:12 Milk Of Magnesia 30 Ml Oral.Susp PO 15 ml BEDTIME PRN Administration constip Melatonin 9 mg 02/11/21 21:00 02/13/21 20:54 Melatonin 3 Mg Tablet PO 9 mg BEDTIME VENITA Administration Metoprolol Succinate 25 mg 02/11/21 09:00 02/14/21 08:38 Metoprolol Succinate Er 25 Mg Tab.Er.24h PO 25 mg DAILY VENITA Administration Protocol Morphine Sulfate 2 mg 02/12/21 12:06 02/13/21 22:47 Morphine Sulfate 2 Mg/Ml Cartridge IVPUSH 2 mg Q4H PRN Administration Pain, Severe (Pain Scale 7-10) Nifedipine 30 mg 02/13/21 14:35 02/14/21 08:36 Nifedipine Er 30 Mg Tab.Er.24 PO 30 mg DAILY VENITA Administration Protocol Omeprazole 20 mg 02/11/21 09:00 02/14/21 08:36 Omeprazole 20 Mg Capsule.Dr PO 20 mg DAILY VENITA Administration Ondansetron HCl 4 mg 02/11/21 05:02 Ondansetron Hcl 4 Mg/2 Ml Vial IVPUSH Q8H PRN Nausea and Vomiting Oxcarbazepine 300 mg 02/11/21 12:00 02/14/21 12:49 Oxcarbazepine 300 Mg Tablet PO 300 mg BID@1200,2100 VENITA Administration Polyethylene Glycol 17 gm 02/11/21 09:00 02/14/21 08:35 Polyethylene Glycol 3350 17 Gm Powd.Pack PO 17 gm DAILY VENITA Administration Prednisone 40 mg 02/14/21 09:00 02/14/21 08:40 Prednisone 20 Mg Tablet PO 40 mg DAILY VENITA Administration Simethicone 80 mg 02/12/21 12:00 02/14/21 12:49 Simethicone 80 Mg Tab.Chew PO 80 mg QIDWMHS VENITA Administration Sodium Chloride 3 ml 02/11/21 08:00 02/14/21 08:44 0.9 % Sodium Chloride Flush 3 Ml Syringe IVFLUSH 3 ml QSHIFT VENITA Administration Tizanidine HCl 2 mg 02/11/21 09:00 02/14/21 08:38 Tizanidine Hcl 4 Mg Tablet PO 2 mg TID VENITA Administration Time Spent With Patient Time: Total time spent is greater than 50% in coordination of care (as documented) at patient's floor/unit and/or counseling patient: Time with patient: 15 - 24 minutes Procedures Date of Service Date of Service: 02/14/21 Quality Stroke Does the patient have a stroke diagnosis?: No VTE Prior VTE?: No VTE Risk Level:: Medical - moderate - high VTE Device Contraindication: Treatment Not Indicated VTE Drug Contraindication: N/A - Med Ordered
--- NOTE | 2021-02-14 14:49 | PC.NURSE ---
Skin assessment completed today. Skin tear to left arm/elbow, edema and bruising noted to left arm.. Xeroform and foam dressing applied.
== END 2021-02-14 15:26 | disposition home or self-care (01) | DRG 141 ==
LOC: HO.ED 02-11 01:31 → HO.EDOVER 02-11 04:43 → HO.IMC 02-11 11:54
PROVIDERS: Admitting Provider Internal Medicine; Emergency Provider Student in an Organized Health Care Education/Training Program; PCP Internal Medicine; Visit Provider Student in an Organized Health Care Education/Training Program
DX: J45.901 Unspecified asthma with (acute) exacerbation (principal); N17.9 Acute kidney failure, unspecified; I13.0 Hypertensive heart and chronic kidney disease with heart failure and stage 1 through stage 4 chronic kidney disease, or unspecified chronic kidney disease; E87.1 Hypo-osmolality and hyponatremia; I50.22 Chronic systolic (congestive) heart failure; I48.20 Chronic atrial fibrillation, unspecified; K59.00 Constipation, unspecified; N18.2 Chronic kidney disease, stage 2 (mild); E78.5 Hyperlipidemia, unspecified; I73.00 Raynaud's syndrome without gangrene; Z20.822 Contact with and (suspected) exposure to COVID-19; Z79.899 Other long term (current) drug therapy
CPT/HCPCS: 36415; 71045; 74176; 80048; 80053; 81003; 82947; 83605; 83690; 83735; 83880; 83935; 84300; 84484; 85025; 85027; 85610; 87040; 87635; 92610; 93005; 93926; 94640; 99285; J1940; J2270; J2920

== ENCOUNTER 2021-03-07 12:16 | Emergency (ER) | payer MEDICAID, SELFPAY ==
--- NOTE | ~2021-03-07 | XR_ITS ---
EXAMINATION: XR CHEST CLINICAL INFORMATION: Epigastric pain COMPARISON: Chest radiographs 02/10/2021, 01/08/2021, CT chest 01/08/2021, CT abdomen 02/11/2021. TECHNIQUE: Portable upright AP view of the chest was obtained. FINDINGS: Enlarged cardiopericardial silhouette is similar to prior studies. There is coarsening of the bronchiolar markings similar to prior exam. There is no lobar or segmental airspace consolidation or interval new groundglass opacity. No effusion. No pneumothorax, pneumomediastinum, or free air beneath the diaphragms. There are low lung volumes with inspiration to the right posterior eighth intercostal space. The hilar and mediastinal contours and bony structures are unremarkable. XR/XR chest 1V IMPRESSION: No acute intrathoracic disease from prior study 02/10/2021. Low lung volumes.
[2021-03-07 12:20] VITALS: BP 134/56; BP 147/87; PULSE 60; PULSE 77; RESP 22; TEMP 36.9; O2SAT 100; BMI 37.9
--- NOTE | 2021-03-07 12:34 | ED_ITS ---
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 Came in today complaining of left lower extremities pains that radiate all the way up to the left side of his body up to the epigastric area., patient also complaining of nausea but no vomiting. Patient also is complaining of difficulty breathing and wheezing. Patient had multiple ED presentation for exactly similar presentation. Related Data Home Medications Medication Instructions Recorded Confirmed Pradaxa 1 cap PO BID@1200,2100 01/08/21 02/11/21 citalopram 1 tab PO DAILY@1200 01/08/21 02/11/21 hydroxyzine HCl 10 mg PO BEDTIME 01/08/21 02/11/21 levetiracetam 1 tab PO BID@1200,2100 01/08/21 02/11/21 melatonin 2 tab PO BEDTIME 01/08/21 02/11/21 metoprolol succinate 1 tab PO QAM 01/08/21 02/11/21 oxcarbazepine 1 tab PO BID@1200,2100 01/08/21 02/11/21 pantoprazole 1 tab PO QAM 01/08/21 02/11/21 simvastatin 1 tab PO QPM 01/08/21 02/11/21 tizanidine 0.5 tab PO TID 01/08/21 02/11/21 albuterol sulfate [ProAir HFA] 2 puff INHALATION Q4-6H PRN 02/11/21 02/11/21 Previous Rx's Medication Instructions Recorded acetaminophen [Tylenol] 650 mg PO QID PRN #20 tab 01/11/21 docusate sodium 100 mg PO BEDTIME #30 cap 01/11/21 furosemide 20 mg PO DAILY #30 tab 01/11/21 lidocaine 1 patch TOPICAL DAILY PRN #10 ea 01/11/21 polyethylene glycol 3350 17 g PO BID #30 ea 01/11/21 albuterol sulfate 1 amp INHALATION Q6H #0 ml 02/14/21 chair, wheel [Wheel chair] #1 ea 02/14/21 docusate sodium 100 mg PO BID 30 Days #60 cap 02/14/21 nebulizers #1 ea 02/14/21 nifedipine 30 mg PO DAILY 30 Days #30 tab 02/14/21 polyethylene glycol 3350 17 g PO DAILY 30 Days ea 02/14/21 prednisone 40 mg PO DAILY 3 Days #6 tab 02/14/21 Allergies Allergy/AdvReac Type Severity Reaction Status Date / Time No Known Allergies Allergy Verified 11/23/20 14:28 Review of Systems Review of Systems: All other systems are reviewed and are negative Constitutional: Reports as per HPI and Reports no additional constitutional complaints Eyes: Reports as per HPI and Reports no additional eye complaints Reports system reviewed and no additional complaints, except as documented Cardiovascular: Reports as per HPI and Reports no additional cardiovascular complaints Respiratory: Reports as per HPI and Reports no additional respiratory complaints Gastrointestinal: Reports as per HPI and Reports no additional gastrointestinal complaints Genitourinary: Reports no additional female genitourinary complaints Musculoskeletal: Reports no additional musculoskeletal complaints Skin/Breast: Reports system reviewed and no additional complaints, except as docu Psychiatric: Reports no additional psychiatric complaints Endocrine: Reports no additional endocrine complaints Hematologic/Lymphatic: Reports no additional hematologic/lymphatic complaints Allergic/Immunologic: Reports no additional allergic/immunologic complaints Reports system reviewed and no additional complaints, except as documented and Reports Abnormal speech present [facility] Past Medical History Medical History Anemia Bradycardia Cardiomyopathy Chronic atrial fibrillation Chronic HFrEF (heart failure with reduced ejection fraction) CVA (cerebral vascular accident) HTN (hypertension) Obesity Raynaud disease Family History Family History Father Emphysema lung Mother Cardiovascular disease Social History Social History Household Members: Caregiver Housing: House Do you presently have visiting nurse or other home services: Yes Unable to assess alcohol history related to: Unknown Alcohol intake: never Patient Tobacco Use Status: Never used Tobacco Second Hand Smoke Exposure: No Use of substances other than those prescribed or required for medical reasons: No Advance Directives: Yes Advance Directives on File: Yes Advance Directives Date on File: 11/23/20 service: No Current occupational status: disabled Physical Exam Vital Signs: Vital Signs: Last Vital Signs Temp 98.4 F 03/07/21 12:38 Pulse 58 03/07/21 13:28 Resp 22 H 03/07/21 12:38 BP 134/56 L 03/07/21 12:38 Pulse Ox 100 03/07/21 12:38 Body Mass Index 37.9 Vital signs have been reviewed as appeared to be correct. Blood pressure normal. Heart rate normal. Respiration rate normal. Temperature normal. Oxygen saturation normal. Appearance: Alert. Oriented X3. No acute distress. Head: Normal external exam. Normocephalic. Atraumatic. No Martell signs noted. No raccoon eyes noted Eyes: PERRLA. EOMI. Conjunctiva and sclera normal. Eyelids normal. ENT: TM's Normal. Pharynx normal. Uvula midline. Moist mucous membranes. No trismus noted. No drooling noted. No muffled voice noted. Neck: Normal inspection. Neck supple. FROM. No adenopathy. Thyroid Normal. No meningeal signs. No neck mass noted. CVS: Normal heart rate and rhythm. Heart sound normal. No murmurs noted. Pulses normal throughout. Respiratory: No respiratory distress. Painless inspiration. Breath sounds normal. Diffuse mild expiratory wheezing. Chest nontender. No accessory muscle usage noted or decreased air movement noted. Abdomen: Soft and nontender. Bowel sounds normal in all 4 quadrants. No distention noted. No organomegaly noted. No visible injury noted. Back: No CVA tenderness. Full range of motion noted. Skin: Skin warm and dry. Normal skin color. Normal skin turgor. No rashes/lesions/lacerations noted. Extremities: No lower extremity edema. Extremities exhibit normal range of motion. Extremities nontender. Neuro: Oriented X 3. No motor deficit. No sensory deficit. Reflexes normal. Course Course Course Narrative: Assessment and plan. 65-year-old male history of CVA and bed bound, came in with left-sided abdominal pain started from lower extremities radiate up, patient's exam and labs at baseline with chronic hyponatremia. Elevated BNP but clinically no congestive heart failure. Patient received 1 dose of Lasix while in the emergency department. Discussed with the patient will discharge home and follow-up with PCP. MDM - Chest Pain Lab Data Attestation: I reviewed the patient's lab results. Result diagrams: 03/07/21 13:17 07/13/21 13:17 Labs: Lab Results 03/07/21 03/07/21 03/07/21 Range/Units 13:17 13:17 13:17 WBC 7.4 (4.8-10.8) X10*3/uL RBC 3.41 L (4.60-5.80) X10*6/uL Hgb 8.7 L (14.0-18.0) g/dl Hct 27.0 L (42-52) % MCV 79.2 L (80-98) fL MCH 25.5 L (27.0-33.0) pg MCHC 32.2 (31.0-36.0) g/dl RDW 16.3 H (11.0-16.0) % Plt Count 163 D (160-400) X10*3/uL MPV 9.7 (9.4-12.4) fL Immature Gran % (Auto) 0.3 (0.0-0.4) % Neut % (Auto) 77.2 H (45-73) % Lymph % (Auto) 10.4 L (20-40) % Charles % (Auto) 11.7 H (2-11) % Eos % (Auto) 0.1 (0-4) % Baso % (Auto) 0.3 (0-2) % Lymph # (Auto) 0.8 L (1.2-4.9) X10*3/uL Charles # (Auto) 0.9 (0.1-1.2) X10*3/uL Eos # (Auto) 0.0 (0.0-0.4) X10*3/uL Baso # (Auto) 0.0 (0.0-0.2) X10*3/uL Abs Immat Gran (auto) 0.02 (0.00-0.03) X10*3/uL Absolute Neuts (auto) 5.7 (2.0-8.3) X10*3/uL Absolute Nucleated RBC 0.000 (0.0-0.012) X10*3/uL Nucleated RBC % (auto) 0.0 (0.0-0.2) /100WBC Sodium 128 L (135-145) mmol/L Potassium 4.1 (3.3-5.1) mmol/L Chloride 94 L (96-108) mmol/L Carbon Dioxide 24 (22-29) mmol/L Anion Gap 14 (12-20) BUN 8 L D (9-16) mg/dL Creatinine 0.79 (0.5-1.4) mg/dL Estim Creat Clear Calc 113.1 Estimated GFR > 60 Random Glucose 80 (60-115) mg/dL Calcium 8.8 (8.4-10.2) mg/dL Total Bilirubin 0.7 (0.0-1.0) mg/dL Direct Bilirubin 0.4 (0.0-0.5) mg/dL AST 20 D (5-37) U/L ALT 17 (0-40) U/L Alkaline Phosphatase 77 (39-117) U/L Troponin I High Sens 14.5 D (<3.5-35.0) ng/L B-Natriuretic Peptide 1048 H (<100) pg/mL Total Protein 6.9 (6.5-8.0) g/dL Albumin 4.1 (3.5-5.0) g/dL Lipase 13 (8-78) U/L Imaging Data Chest x-ray: Radiologist's impression: No acute intrathoracic disease from prior study 02/10/2021. Low lung volumes. ECG Data ECG #1: Interpretation: Atrial fibrillation at 83 beats per minutes, normal axis deviation, otherwise unremarkable intervals, no change from previous EKG. Discharge Plan Discharge Clinical Impression: Hemiparesis, left, Chronic HFrEF (heart failure with reduced ejection fraction), Atypical chest pain, Chronic hyponatremia Patient Disposition: Home, Self-Care Instructions: Heart Failure (ED) Prescriptions: No Action citalopram 40 mg tablet 1 tab PO DAILY@1200 RF: 0 tizanidine 4 mg tablet 0.5 tab PO TID RF: 0 oxcarbazepine 300 mg tablet 1 tab PO BID@1200,2100 RF: 0 pantoprazole 40 mg tablet,delayed release (DR/EC) 1 tab PO QAM RF: 0 simvastatin 20 mg tablet 1 tab PO QPM RF: 0 metoprolol succinate 25 mg tablet extended release 24 hr 1 tab PO QAM RF: 0 hydroxyzine HCl 10 mg tablet 10 mg PO BEDTIME RF: 0 levetiracetam 1,000 mg tablet 1 tab PO BID@1200,2100 RF: 0 melatonin 5 mg tablet 2 tab PO BEDTIME RF: 0 Pradaxa 150 mg capsule 1 cap PO BID@1200,2100 RF: 0 polyethylene glycol 3350 17 gram Powder In Packet 17 g PO BID Qty: 30 RF: 0 docusate sodium 100 mg Capsule 100 mg PO BEDTIME Qty: 30 RF: 0 furosemide 20 mg Tablet 20 mg PO DAILY Qty: 30 RF: 0 lidocaine 4 % adhesive patch,medicated 1 patch topical DAILY PRN (Reason: pain) Qty: 10 RF: 0 acetaminophen [Tylenol] 325 mg tablet 650 mg PO QID PRN (Reason: pain) Qty: 20 RF: 0 albuterol sulfate [ProAir HFA] 90 mcg/actuation HFA aerosol inhaler 2 puff inhalation Q4-6H PRN (Reason: Wheezing) RF: 0 nifedipine 30 mg Tablet Extended Release 24hr 30 mg PO DAILY 30 Days Qty: 30 RF: 0 polyethylene glycol 3350 17 gram Powder In Packet 17 g PO DAILY 30 Days RF: 0 prednisone 20 mg Tablet 40 mg PO DAILY 3 Days Qty: 6 RF: 0 docusate sodium 100 mg Capsule 100 mg PO BID 30 Days Qty: 60 RF: 0 (DME) nebulizers Misc See Rx Instructions .ROUTE .MEDSUPPLY Qty: 1 RF: 0 (DME) Wheel chair Kit See Rx Instructions .ROUTE .MEDSUPPLY Qty: 1 RF: 0 albuterol sulfate 2.5 mg /3 mL (0.083 %) solution for nebulization 1 amp inhalation Q6H Qty: 0 RF: 0 Referrals: Physician,Unknown [Primary Care Provider] - 2 days
--- NOTE | 2021-03-07 12:34 | ECG_ITS ---
Test Reason : CHEST PAIN Blood Pressure : / mmHG Vent. Rate : 083 BPM Atrial Rate : 576 BPM P-R Int : 000 ms QRS Dur : 096 ms QT Int : 410 ms P-R-T Axes : 000 030 089 degrees QTc Int : 481 ms Atrial fibrillation with premature ventricular or aberrantly conducted complexes Septal infarct (cited on or before 11-JUN-2011) Cannot rule out Inferior infarct (cited on or before 11-JUN-2011) Abnormal ECG When compared with ECG of 10-FEB-2021 20:52, QT has lengthened Referred By: Kay Malik Electronically Signed By:Presley Shell
[2021-03-07 12:38] VITALS: BP 134/56; PULSE 77; RESP 22; TEMP 36.9; O2SAT 100
--- NOTE | 2021-03-07 12:40 | PC.NURSE ---
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 HE states he has foot pain all the time but it became worse and then started radiating into his chest. Pt states pain currently 9. Pt also asking for dotson catheter. Explained caheter not indicated at this time
[2021-03-07 13:23] LABS: MANUAL DIFF FLAG NO
[2021-03-07] MEDS: Albuterol/Iprat 2.5/0.5MG 3 ML AMPUL.NEB INHALE (13:25)
[2021-03-07 13:26] LABS: Basophils Percent Auto 0.3 % (0-2); Eosinophils Percent Auto 0.1 % (0-4); Hemoglobin 8.7 g/dl (14.0-18.0); Imm Gran Abs Auto 0.02 X10*3/uL (0.00-0.03); Imm Gran Pct Auto 0.3 % (0.0-0.4); Lymphocytes Absolute Auto 0.8 X10*3/uL (1.2-4.9); Lymphocytes Percent Auto 10.4 % (20-40); Mean Corpuscular HGB Conc 32.2 g/dl (31.0-36.0); Mean Corpuscular Hemoglobin 25.5 pg (27.0-33.0); Mean Corpuscular Volume 79.2 fL (80-98); Mean Platelet Volume 9.7 fL (9.4-12.4); Monocytes Absolute Auto 0.9 X10*3/uL (0.1-1.2); Monocytes Percent Auto 11.7 % (2-11); Neutrophils Absolute Auto 5.7 X10*3/uL (2.0-8.3); Neutrophils Percent Auto 77.2 % (45-73); Platelet Count 163 X10*3/uL (160-400); Red Blood Count 3.41 X10*6/uL (4.60-5.80); Red Cell Distribution Width 16.3 % (11.0-16.0); White Blood Count 7.4 X10*3/uL (4.8-10.8)
[2021-03-07] MEDS: Albuterol Sulfate (0.083%) 2.5 MG/3 ML VIAL.NEB INHALE (13:26)
[2021-03-07 13:28] VITALS: PULSE 58; O2SAT 93
[2021-03-07 13:53] LABS: Alanine Aminotransferase 17 U/L (0-40); Albumin Level 4.1 g/dL (3.5-5.0); Alkaline Phosphatase 77 U/L (39-117); Anion Gap 14 (12-20); Aspartate Amino Transferase 20 U/L (5-37); B Type Natriuretic Peptide 1048 pg/mL (<100); Bilirubin Direct 0.4 mg/dL (0.0-0.5); Bilirubin Total 0.7 mg/dL (0.0-1.0); Blood Urea Nitrogen 8 mg/dL (9-16); Calcium 8.8 mg/dL (8.4-10.2); Carbon Dioxide 24 mmol/L (22-29); Chloride 94 mmol/L (96-108); Creatinine Clr Calc Pharmacy 113.1; Estimated Glomerular Filt Rate > 60; Glucose Random 80 mg/dL (60-115); Lipase 13 U/L (8-78); Potassium 4.1 mmol/L (3.3-5.1); Sodium 128 mmol/L (135-145); Total Protein 6.9 g/dL (6.5-8.0); Troponin-I High Sensitivity 14.5 ng/L (<3.5-35.0)
[2021-03-07] MEDS: Furosemide 20 MG/2 ML VIAL IVPUSH (15:06)
[2021-03-07 15:45] VITALS: BP 128/73; PULSE 77; RESP 16; TEMP 36.9; O2SAT 100
== END 2021-03-07 18:31 | disposition home or self-care (01) ==
PROVIDERS: Emergency Provider Emergency Medicine
DX: R07.89 Other chest pain (principal); I11.0 Hypertensive heart disease with heart failure; I50.22 Chronic systolic (congestive) heart failure; G81.94 Hemiplegia, unspecified affecting left nondominant side; E87.1 Hypo-osmolality and hyponatremia; M79.662 Pain in left lower leg; M79.661 Pain in right lower leg; I48.20 Chronic atrial fibrillation, unspecified; Z86.73 Personal history of transient ischemic attack (TIA), and cerebral infarction without residual deficits
CPT/HCPCS: 36415; 71045; 80048; 80076; 83690; 83880; 84484; 85025; 93005; 94640; 96374; 99284; 99285; J1940

== ENCOUNTER 2021-05-06 10:40 | Emergency (ER) | payer MEDICAID, SELFPAY ==
--- NOTE | ~2021-05-06 | CT_ITS ---
EXAMINATION: CT ABDOMEN AND PELVIS WITH CONTRAST CLINICAL INFORMATION: Right lower quadrant and suprapubic pain. COMPARISON: 02/11/2021. TECHNIQUE: Multidetector volumetric images were obtained from the superior aspect of the liver through the pubic symphysis following administration 85 mL of Omnipaque 350 intravenous contrast. Sagittal and coronal reformatted images were obtained on the technologist's workstation. Oral contrast: No This CT examination was performed using dose optimization techniques as appropriate, variously including the following: *Automated exposure control *Adjustment of mA and/or kV according to patient size (this includes techniques or standardized protocols for targeted exams where dose is matched to indication/reason for exam; i.e. extremities or head) *Use of iterative reconstruction technique DLP: 1165 mGy-cm FINDINGS: LUNG BASES: Cardiomegaly. No pericardial effusion. There are a few linear opacities of atelectasis in the bases. No pulmonary consolidation or pleural effusion at either lung base. LIVER: The liver has normal size, shape, and attenuation. No evidence of liver mass. GALLBLADDER AND BILIARY TREE: No radiopaque gallstones, wall thickening or pericholecystic fluid. No intrahepatic or extrahepatic bile duct dilatation. PANCREAS: Normal. No edema, pancreatic ductal dilatation or mass. SPLEEN: Normal. ADRENAL GLANDS: Normal. KIDNEYS, URETERS AND BLADDER: The kidneys are normal in size and attenuation. There are two old clustered calyceal stones of approximately 0.3 cm size in the anterior right lower pole where there is chronic, severe atrophy of the overlying cortex. Otherwise, no nephrolithiasis or ureterolithiasis. No renal mass. No perinephric edema. The urinary bladder appears to be distended to near maximum capacity and measures 17 cm in craniocaudal dimension. No bladder mass or calculus. The bladder distention is associated with symmetric, mild distention of each ureter and renal pelvis. BOWEL AND PERITONEUM: Stomach is unremarkable. No dilated bowel loops. Moderate amount of fecal material is present in the colon and rectum, which is distended to 7.5 cm transverse diameter. Findings are suggestive of constipation. No perirectal or pericolonic edema. The appendix is normal. No ascites or pneumoperitoneum. ABDOMINAL WALL: Chronic diastases of rectus abdominis muscles. Small fat-containing umbilical hernia measures 2.5 cm wide. VASCULATURE: Unremarkable. LYMPH NODES: No pathologic sized lymph nodes in the abdomen or pelvis. No inguinal lymphadenopathy. PELVIC VISCERA: Prostate gland is normal in size. No pelvic mass or free fluid. A few phleboliths are observed within the pelvis. SKELETAL: L5-S1 degenerative disc disease as manifest by loss of disc height, vacuum disc phenomenon and vertebral osteophyte formation. No suspicious bone lesions. CT/CT abdomen pelvis w con IMPRESSION: * The urinary bladder appears to be distended to near maximum capacity. Query whether patient has any symptoms of bladder outlet obstruction. However, the prostate gland is not enlarged and is not overtly a source of bladder outlet obstruction. There is no bladder mass. The bladder distention is associated with symmetric mild dilatation of the ureters. No obstructing stones in either ureter. * Moderate amount of fecal material in the colon and rectum. Probable constipation. No inflammatory changes or obstruction along the gastrointestinal tract. * There is a fat-containing umbilical hernia.
[2021-05-06 10:45] VITALS: BP 138/90; PULSE 92; O2SAT 97
--- NOTE | 2021-05-06 10:50 | ECG_ITS ---
Test Reason : ABD PAIN Blood Pressure : / mmHG Vent. Rate : 090 BPM Atrial Rate : 081 BPM P-R Int : 000 ms QRS Dur : 076 ms QT Int : 326 ms P-R-T Axes : 000 047 069 degrees QTc Int : 398 ms Atrial fibrillation with premature ventricular or aberrantly conducted complexes Anteroseptal infarct (cited on or before 11-JUN-2011) Abnormal ECG When compared with ECG of 07-MAR-2021 12:47, Minimal criteria for Inferior infarct are no longer Present Nonspecific T wave abnormality no longer evident in Lateral leads QT has shortened Referred By: Amira Enciso Electronically Signed By:CORTNEY AMAYA
--- NOTE | 2021-05-06 10:59 | ED_ITS ---
HPI - Abdominal Pain General Chief Complaint: Abdominal Pain Stated Complaint: abd pain radiating to chest Time Seen by Provider: 05/06/21 10:44 Source: patient Mode of arrival: EMS Limitations: no limitations History of Present Illness HPI narrative: Patient comes to the emergency room via EMS. Patient comes in complaining of abdominal pain, much worse in the right lower quadrant. Patient states he feels distended, denies vomiting or diarrhea. Patient states that he does have history of constipation, sometimes when he has a bowel movement he has rectal bleeding, but is not new for him. Patient states that the pressure in his abdomen radiates towards his chest. Denies chest pain or shortness of breath. Related Data Home Medications Medication Instructions Recorded Confirmed citalopram 40 mg tablet 1 tab PO DAILY@1200 01/08/21 02/11/21 dabigatran etexilate 150 mg 1 cap PO BID@1200,2100 01/08/21 02/11/21 capsule (Pradaxa) hydroxyzine HCl 10 mg tablet 10 mg PO BEDTIME 01/08/21 02/11/21 levetiracetam 1,000 mg tablet 1 tab PO BID@1200,2100 01/08/21 02/11/21 melatonin 5 mg tablet 2 tab PO BEDTIME 01/08/21 02/11/21 metoprolol succinate 25 mg 1 tab PO QAM 01/08/21 02/11/21 tablet,extended release 24 hr oxcarbazepine 300 mg tablet 1 tab PO BID@1200,2100 01/08/21 02/11/21 pantoprazole 40 mg tablet,delayed 1 tab PO QAM 01/08/21 02/11/21 release simvastatin 20 mg tablet 1 tab PO QPM 01/08/21 02/11/21 tizanidine 4 mg tablet 0.5 tab PO TID 01/08/21 02/11/21 albuterol sulfate 90 mcg/actuation 2 puff INHALATION Q4-6H PRN 02/11/21 02/11/21 aerosol inhaler (ProAir HFA) Previous Rx's Medication Instructions Recorded acetaminophen 325 mg tablet 650 mg PO QID PRN #20 tab 01/11/21 (Tylenol) docusate sodium 100 mg capsule 100 mg PO BEDTIME #30 cap 01/11/21 furosemide 20 mg tablet 20 mg PO DAILY #30 tab 01/11/21 lidocaine 4 % topical patch 1 patch TOPICAL DAILY PRN #10 ea 01/11/21 polyethylene glycol 3350 17 gram 17 g PO BID #30 ea 01/11/21 oral powder packet albuterol sulfate 1 amp INHALATION Q6H #0 ml 02/14/21 chair, wheel (Wheel chair) #1 ea 02/14/21 docusate sodium 100 mg capsule 100 mg PO BID 30 Days #60 cap 02/14/21 nebulizers #1 ea 02/14/21 nifedipine 30 mg tablet,extended 30 mg PO DAILY 30 Days #30 tab 02/14/21 release 24 hr polyethylene glycol 3350 17 gram 17 g PO DAILY 30 Days ea 02/14/21 oral powder packet prednisone 20 mg tablet 40 mg PO DAILY 3 Days #6 tab 02/14/21 tamsulosin 0.4 mg capsule (Flomax) 0.4 mg PO BEDTIME #14 cap 05/06/21 Allergies Allergy/AdvReac Type Severity Reaction Status Date / Time No Known Allergies Allergy Verified 11/23/20 14:28 Review of Systems Review of Systems Constitutional : No Weight loss, No Fever, No Chills, No Night Sweats, No Fatigue, No Malaise ENT/Mouth : No Hearing loss, No Ear Pain, No Nasal Congestion, No Sinus Pain, No Hoarseness, No sore throat, No Rhinorrhea, No Swallowing Difficulty Eyes: No Eye Pain, No Swelling, No Redness, No Foreign Body, No Discharge, No Vision Changes Cardiovascular : No Chest Pain, No SOB, No Dyspnea on Exertion, No Orthopnea, No Edema, No Palpitations Respiratory : No Cough, No Sputum, No Wheezing, No Smoke Exposure, No Dyspnea Gastrointestinal : No Nausea, No Vomiting, No Diarrhea, complaining of chronic constipation, chronic rectal bleeding with hard bowel movements, complaining of new right lower quadrant pain and suprapubic pain Genitourinary : no irregular bleeding, No Dysuria, No Urinary Frequency, No He maturia, No Urinary Incontinence, No Urgency, No Flank Pain, No Urinary Flow Changes, No Hesitancy Musculoskeletal : No joint pain, No Myalgias, No Joint Swelling Skin : No Skin Lesions, No rash Neuro : No Weakness, No Numbness, No Paresthesias, No Loss of Consciousness, No Dizziness, No Headache Psych : No Anxiety/Panic, No Depression, No SI/HI/AH/VH, No Social Issues, Heme/Lymph: No Bruising, No Bleeding,No Lymphadenopathy Endocrine : No Polyuria, No Polydipsia, No Temperature Intolerance Physical Exam Vital Signs: Vital Signs: Last Vital Signs Temp 98.0 F 05/06/21 12:45 Pulse 90 05/06/21 13:28 Resp 18 05/06/21 13:28 BP 147/74 H 05/06/21 13:28 Pulse Ox 97 05/06/21 13:28 Body Mass Index 38.3 Const: Other: Appearance: Alert. Oriented X3. No acute distress. Eyes: Pupils equal, round and reactive to light. ENT: Pharynx normal. Neck: Normal inspection. Neck supple. No lymph nodes noted. No crepitus CVS: Normal heart rate and rhythm. Pulses normal. Normal S1 and S2 Respiratory: No respiratory distress. Breath sounds normal. No Wheezing. No rales Abdomen: Soft , slightly distended, pain to palpation over the right lower quadrant and suprapubic area Skin: Skin warm and dry. Normal skin color. Normal skin turgor. Extremities: No lower extremity edema. No lower extremity edema. No Lacerations. No Rash Neuro: Oriented X 3. No motor deficit. No sensory deficit. Moving all extermities. No slurred speech. Course Course Course Narrative: Patient's troponin 1. Was slightly bumped, the 2nd 1 was less than that the 50. Patient's bladder scan show a significant amount of urine, greater than 900. A Pacheco catheter has been inserted. 1400 mL of urine have been green. Patient will be going home with a Pacheco catheter. Patient instructed to follow-up with urology. MDM - Abdominal Pain Lab Data Result diagrams: 05/06/21 11:46 05/06/21 11:46 Labs: Lab Results 05/06/21 05/06/21 05/06/21 Range/Units 11:45 11:46 11:46 WBC 7.7 (4.8-10.8) X10*3/uL RBC 4.79 D (4.60-5.80) X10*6/uL Hgb 12.2 L D (14.0-18.0) g/dl Hct 38.8 L D (42-52) % MCV 81.0 (80-98) fL MCH 25.5 L (27.0-33.0) pg MCHC 31.4 (31.0-36.0) g/dl RDW 24.0 H (11.0-16.0) % Plt Count 252 D (160-400) X10*3/uL MPV 10.3 (9.4-12.4) fL Immature Gran % (Auto) 0.4 (0.0-0.4) % Neut % (Auto) 63.1 (45-73) % Lymph % (Auto) 23.8 (20-40) % Winkler % (Auto) 10.7 (2-11) % Eos % (Auto) 1.2 (0-4) % Baso % (Auto) 0.8 (0-2) % Lymph # (Auto) 1.8 (1.2-4.9) X10*3/uL Winkler # (Auto) 0.8 (0.1-1.2) X10*3/uL Eos # (Auto) 0.1 (0.0-0.4) X10*3/uL Baso # (Auto) 0.1 (0.0-0.2) X10*3/uL Abs Immat Gran (auto) 0.03 (0.00-0.03) X10*3/uL Absolute Neuts (auto) 4.9 (2.0-8.3) X10*3/uL Absolute Nucleated RBC 0.000 (0.0-0.012) X10*3/uL Nucleated RBC % (auto) 0.0 (0.0-0.2) /100WBC PT 14.1 H (9.9-13.0) SEC INR 1.2 H (0.9-1.1) Sodium (135-145) mmol/L Potassium (3.3-5.1) mmol/L Chloride (96-108) mmol/L Carbon Dioxide (22-29) mmol/L Anion Gap (12-20) BUN (9-16) mg/dL Creatinine (0.5-1.4) mg/dL Estim Creat Clear Calc Estimated GFR Random Glucose (60-115) mg/dL Lactic Acid 1.1 (0.5-2.0) mmol/L Calcium (8.4-10.2) mg/dL Total Bilirubin (0.0-1.0) mg/dL Direct Bilirubin (0.0-0.5) mg/dL AST (5-37) U/L ALT (0-40) U/L Alkaline Phosphatase (39-117) U/L Troponin I High Sens (<3.5-35.0) ng/L B-Natriuretic Peptide (<100) pg/mL Total Protein (6.5-8.0) g/dL Albumin (3.5-5.0) g/dL Lipase (8-78) U/L Urine Color Urine Appearance Urine pH (5.0-8.0) Ur Specific [place] (1.005-1.025) Urine Protein (NEG-TRACE) MG/DL Urine Glucose (UA) (NEG) MG/DL Urine Ketones (NEG) MG/DL Urine Blood (NEG) Urine Nitrite (NEG) Ur Leukocyte Esterase (NEG) Ethyl Alcohol mg/dL 05/06/21 05/06/21 05/06/21 Range/Units 11:46 11:46 11:46 WBC (4.8-10.8) X10*3/uL RBC (4.60-5.80) X10*6/uL Hgb (14.0-18.0) g/dl Hct (42-52) % MCV (80-98) fL MCH (27.0-33.0) pg MCHC (31.0-36.0) g/dl RDW (11.0-16.0) % Plt Count (160-400) X10*3/uL MPV (9.4-12.4) fL Immature Gran % (Auto) (0.0-0.4) % Neut % (Auto) (45-73) % Lymph % (Auto) (20-40) % Winkler % (Auto) (2-11) % Eos % (Auto) (0-4) % Baso % (Auto) (0-2) % Lymph # (Auto) (1.2-4.9) X10*3/uL Winkler # (Auto) (0.1-1.2) X10*3/uL Eos # (Auto) (0.0-0.4) X10*3/uL Baso # (Auto) (0.0-0.2) X10*3/uL Abs Immat Gran (auto) (0.00-0.03) X10*3/uL Absolute Neuts (auto) (2.0-8.3) X10*3/uL Absolute Nucleated RBC (0.0-0.012) X10*3/uL Nucleated RBC % (auto) (0.0-0.2) /100WBC PT (9.9-13.0) SEC INR (0.9-1.1) Sodium 137 (135-145) mmol/L Potassium 4.8 (3.3-5.1) mmol/L Chloride 99 (96-108) mmol/L Carbon Dioxide 28 (22-29) mmol/L Anion Gap 15 (12-20) BUN 11 (9-16) mg/dL Creatinine 1.01 (0.5-1.4) mg/dL Estim Creat Clear Calc 89.0 Estimated GFR > 60 Random Glucose 94 (60-115) mg/dL Lactic Acid (0.5-2.0) mmol/L Calcium 10.3 H D (8.4-10.2) mg/dL Total Bilirubin 0.2 (0.0-1.0) mg/dL Direct Bilirubin 0.2 (0.0-0.5) mg/dL AST 21 (5-37) U/L ALT 13 (0-40) U/L Alkaline Phosphatase 94 D (39-117) U/L Troponin I High Sens 13.6 (<3.5-35.0) ng/L B-Natriuretic Peptide 752 H (<100) pg/mL Total Protein 7.8 (6.5-8.0) g/dL Albumin 4.5 (3.5-5.0) g/dL Lipase 22 (8-78) U/L Urine Color Urine Appearance Urine pH (5.0-8.0) Ur Specific [place] (1.005-1.025) Urine Protein (NEG-TRACE) MG/DL Urine Glucose (UA) (NEG) MG/DL Urine Ketones (NEG) MG/DL Urine Blood (NEG) Urine Nitrite (NEG) Ur Leukocyte Esterase (NEG) Ethyl Alcohol < 10 mg/dL 05/06/21 05/06/21 Range/Units 11:46 15:16 WBC (4.8-10.8) X10*3/uL RBC (4.60-5.80) X10*6/uL Hgb (14.0-18.0) g/dl Hct (42-52) % MCV (80-98) fL MCH (27.0-33.0) pg MCHC (31.0-36.0) g/dl RDW (11.0-16.0) % Plt Count (160-400) X10*3/uL MPV (9.4-12.4) fL Immature Gran % (Auto) (0.0-0.4) % Neut % (Auto) (45-73) % Lymph % (Auto) (20-40) % Winkler % (Auto) (2-11) % Eos % (Auto) (0-4) % Baso % (Auto) (0-2) % Lymph # (Auto) (1.2-4.9) X10*3/uL Wink[place] # (Auto) (0.1-1.2) X10*3/uL Eos # (Auto) (0.0-0.4) X10*3/uL Baso # (Auto) (0.0-0.2) X10*3/uL Abs Immat Gran (auto) (0.00-0.03) X10*3/uL Absolute Neuts (auto) (2.0-8.3) X10*3/uL Absolute Nucleated RBC (0.0-0.012) X10*3/uL Nucleated RBC % (auto) (0.0-0.2) /100WBC PT (9.9-13.0) SEC INR (0.9-1.1) Sodium (135-145) mmol/L Potassium (3.3-5.1) mmol/L Chloride (96-108) mmol/L Carbon Dioxide (22-29) mmol/L Anion Gap (12-20) BUN (9-16) mg/dL Creatinine (0.5-1.4) mg/dL Estim Creat Clear Calc Estimated GFR Random Glucose (60-115) mg/dL Lactic Acid (0.5-2.0) mmol/L Calcium (8.4-10.2) mg/dL Total Bilirubin (0.0-1.0) mg/dL Direct Bilirubin (0.0-0.5) mg/dL AST (5-37) U/L ALT (0-40) U/L Alkaline Phosphatase (39-117) U/L Troponin I High Sens 17.8 (<3.5-35.0) ng/L B-Natriuretic Peptide (<100) pg/mL Total Protein (6.5-8.0) g/dL Albumin (3.5-5.0) g/dL Lipase (8-78) U/L Urine Color YELLOW Urine Appearance CLEAR Urine pH 7.0 (5.0-8.0) Ur Specific [place] 1.020 (1.005-1.025) Urine Protein NEG (NEG-TRACE) MG/DL Urine Glucose (UA) NEG (NEG) MG/DL Urine Ketones NEG (NEG) MG/DL Urine Blood NEG (NEG) Urine Nitrite NEG (NEG) Ur Leukocyte Esterase NEG (NEG) Ethyl Alcohol mg/dL Imaging Data CT scan - abdomen: Radiologist's impression: FINDINGS: LUNG BASES: Cardiomegaly. No pericardial effusion. There are a few linear opacities of atelectasis in the bases. No pulmonary consolidation or pleural effusion at either lung base.? LIVER: The liver has normal size, shape, and attenuation.? No evidence of liver mass. GALLBLADDER AND BILIARY TREE: No radiopaque gallstones, wall thickening or pericholecystic fluid. No intrahepatic or extrahepatic bile duct dilatation.? PANCREAS: Normal. No edema, pancreatic ductal dilatation or mass.? SPLEEN: Normal.? ADRENAL GLANDS: Normal.? KIDNEYS, URETERS AND BLADDER: The kidneys are normal in size and attenuation. There are two old clustered calyceal stones of approximately 0.3 cm size in the anterior right lower pole where there is chronic, severe atrophy of the overlying cortex. Otherwise, no nephrolithiasis or ureterolithiasis. No renal mass. No perinephric edema. The urinary bladder appears to be distended to near maximum capacity and measures 17 cm in craniocaudal dimension. No bladder mass or calculus. The bladder distention is associated with symmetric, mild distention of each ureter and renal pelvis. BOWEL AND PERITONEUM: Stomach is unremarkable. No dilated bowel loops. Moderate amount of fecal material is present in the colon and rectum, which is distended to 7.5 cm transverse diameter. Findings are suggestive of constipation. No perirectal or pericolonic edema. The appendix is normal. No ascites or pneumoperitoneum. ABDOMINAL WALL: Chronic diastases of rectus abdominis muscles. Small fat-containing umbilical hernia measures 2.5 cm wide.? VASCULATURE: Unremarkable. LYMPH NODES: No pathologic sized lymph nodes in the abdomen or pelvis. No inguinal lymphadenopathy. PELVIC VISCERA: Prostate gland is normal in size. No pelvic mass or free fluid. A few phleboliths are observed within the pelvis. SKELETAL: L5-S1 degenerative disc disease as manifest by loss of disc height, vacuum disc phenomenon and vertebral osteophyte formation. No suspicious bone lesions. CT/CT abdomen pelvis w con IMPRESSION: *? The urinary bladder appears to be distended to near maximum capacity. Query whether patient has any symptoms of bladder outlet obstruction. However, the prostate gland is not enlarged and is not overtly a source of bladder outlet obstruction. There is no bladder mass. The bladder distention is associated with symmetric mild dilatation of the ureters. No obstructing stones in either ureter. *? Moderate amount of fecal material in the colon and rectum. Probable constipation. No inflammatory changes or obstruction along the gastrointestinal tract. *? There is a fat-containing umbilical hernia. Discharge Plan Discharge Clinical Impression: Acute urinary retention Patient Disposition: Home, Self-Care Instructions: Urinary Retention in Men (ED) Additional Instructions: Please follow-up with your primary care physician tomorrow. If you have any worsening or new symptoms, please return to the emergency room or call 911 Prescriptions: New tamsulosin [Flomax] 0.4 mg capsule 0.4 mg PO BEDTIME Qty: 14 RF: 0 No Action citalopram 40 mg tablet 1 tab PO DAILY@1200 RF: 0 tizanidine 4 mg tablet 0.5 tab PO TID RF: 0 oxcarbazepine 300 mg tablet 1 tab PO BID@1200,2100 RF: 0 pantoprazole 40 mg tablet,delayed release (DR/EC) 1 tab PO QAM RF: 0 simvastatin 20 mg tablet 1 tab PO QPM RF: 0 metoprolol succinate 25 mg tablet extended release 24 hr 1 tab PO QAM RF: 0 hydroxyzine HCl 10 mg tablet 10 mg PO BEDTIME RF: 0 levetiracetam 1,000 mg tablet 1 tab PO BID@1200,2100 RF: 0 melatonin 5 mg tablet 2 tab PO BEDTIME RF: 0 Pradaxa 150 mg capsule 1 cap PO BID@1200,2100 RF: 0 polyethylene glycol 3350 17 gram Powder In Packet 17 g PO BID Qty: 30 RF: 0 docusate sodium 100 mg Capsule 100 mg PO BEDTIME Qty: 30 RF: 0 furosemide 20 mg Tablet 20 mg PO DAILY Qty: 30 RF: 0 lidocaine 4 % adhesive patch,medicated 1 patch topical DAILY PRN (Reason: pain) Qty: 10 RF: 0 acetaminophen [Tylenol] 325 mg tablet 650 mg PO QID PRN (Reason: pain) Qty: 20 RF: 0 albuterol sulfate [ProAir HFA] 90 mcg/actuation HFA aerosol inhaler 2 puff inhalation Q4-6H PRN (Reason: Wheezing) RF: 0 nifedipine 30 mg Tablet Extended Release 24hr 30 mg PO DAILY 30 Days Qty: 30 RF: 0 polyethylene glycol 3350 17 gram Powder In Packet 17 g PO DAILY 30 Days RF: 0 prednisone 20 mg Tablet 40 mg PO DAILY 3 Days Qty: 6 RF: 0 docusate sodium 100 mg Capsule 100 mg PO BID 30 Days Qty: 60 RF: 0 (DME) nebulizers Misc See Rx Instructions .ROUTE .MEDSUPPLY Qty: 1 RF: 0 (DME) Wheel chair Kit See Rx Instructions .ROUTE .MEDSUPPLY Qty: 1 RF: 0 albuterol sulfate 2.5 mg /3 mL (0.083 %) solution for nebulization 1 amp inhalation Q6H Qty: 0 RF: 0 Referrals: Anthony Wang MD [Physician] - 2 days [facility] Past Medical History Medical History Anemia Bradycardia Cardiomyopathy Chronic atrial fibrillation Chronic HFrEF (heart failure with reduced ejection fraction) CVA (cerebral vascular accident) HTN (hypertension) Obesity Raynaud disease Family History Family History Father Emphysema lung Mother Cardiovascular disease Social History Social History Household Members: Caregiver Housing: House Do you presently have visiting nurse or other home services: Yes Unable to assess alcohol history related to: Unknown Alcohol intake: never Patient Tobacco Use Status: Never used Tobacco Second Hand Smoke Exposure: No Use of substances other than those prescribed or required for medical reasons: No Advance Directives: Yes Advance Directives on File: Yes Advance Directives Date on File: 11/23/20 service: No Current occupational status: disabled
--- NOTE | 2021-05-06 11:00 | PC.NURSE ---
Pt alert and oriented, vss. Pt c/o abdominal pain, worse in the right lower quadrant. He states he feels distended. No c/o vomiting/diarrhea. No chest pain/sob. He reports having a history of constipation and has rectal bleeding sometimes when he has a bowel movement, he also states he has been passing a lot of gas lately. No other complaints, no apparent distress noted. Will continue to monitor.
[2021-05-06 11:25] VITALS: BP 140/86; PULSE 83; TEMP 36.7; O2SAT 97; BMI 38.3
[2021-05-06 12:00] LABS: MANUAL DIFF FLAG NO
[2021-05-06 12:13] LABS: Lactic Acid 1.1 mmol/L (0.5-2.0)
[2021-05-06 12:16] LABS: Ethanol < 10 mg/dL
[2021-05-06 12:19] LABS: Alanine Aminotransferase 13 U/L (0-40); Albumin Level 4.5 g/dL (3.5-5.0); Alkaline Phosphatase 94 U/L (39-117); Anion Gap 15 (12-20); Aspartate Amino Transferase 21 U/L (5-37); Bilirubin Direct 0.2 mg/dL (0.0-0.5); Bilirubin Total 0.2 mg/dL (0.0-1.0); Blood Urea Nitrogen 11 mg/dL (9-16); Calcium 10.3 mg/dL (8.4-10.2); Carbon Dioxide 28 mmol/L (22-29); Chloride 99 mmol/L (96-108); Estimated Glomerular Filt Rate > 60; Glucose Random 94 mg/dL (60-115); Lipase 22 U/L (8-78); Potassium 4.8 mmol/L (3.3-5.1); Sodium 137 mmol/L (135-145); Total Protein 7.8 g/dL (6.5-8.0)
[2021-05-06 12:22] LABS: B Type Natriuretic Peptide 752 pg/mL (<100); Troponin-I High Sensitivity 13.6 ng/L (<3.5-35.0)
[2021-05-06 12:24] LABS: Basophils Absolute Auto 0.1 X10*3/uL (0.0-0.2); Basophils Percent Auto 0.8 % (0-2); Eosinophils Absolute Auto 0.1 X10*3/uL (0.0-0.4); Eosinophils Percent Auto 1.2 % (0-4); Hematocrit 38.8 % (42-52); Hemoglobin 12.2 g/dl (14.0-18.0); INTERNATIONAL NORM RATIO 1.2 (0.9-1.1); Imm Gran Abs Auto 0.03 X10*3/uL (0.00-0.03); Imm Gran Pct Auto 0.4 % (0.0-0.4); Lymphocytes Absolute Auto 1.8 X10*3/uL (1.2-4.9); Lymphocytes Percent Auto 23.8 % (20-40); Mean Corpuscular HGB Conc 31.4 g/dl (31.0-36.0); Mean Corpuscular Hemoglobin 25.5 pg (27.0-33.0); Mean Platelet Volume 10.3 fL (9.4-12.4); Monocytes Absolute Auto 0.8 X10*3/uL (0.1-1.2); Monocytes Percent Auto 10.7 % (2-11); Neutrophils Absolute Auto 4.9 X10*3/uL (2.0-8.3); Neutrophils Percent Auto 63.1 % (45-73); Platelet Count 252 X10*3/uL (160-400); Prothrombin Time 14.1 SEC (9.9-13.0); Red Blood Count 4.79 X10*6/uL (4.60-5.80); White Blood Count 7.7 X10*3/uL (4.8-10.8)
[2021-05-06 12:35] LABS: Appearance Urine CLEAR; Color Urine YELLOW; Glucose Urine UA NEG (NEG); Leukocyte Esterase Urine NEG (NEG); Nitrite Urine NEG (NEG); Urine Blood NEG (NEG); Urine Ketones NEG (NEG); Urine Protein NEG (NEG-TRACE)
[2021-05-06 12:45] VITALS: BP 128/74; PULSE 82; RESP 18; TEMP 36.7; O2SAT 96
[2021-05-06] MEDS: iohexoL 350 MG/ML 100 ML INFUS..BTL IV (13:18)
[2021-05-06 13:28] VITALS: BP 147/74; PULSE 90; RESP 18; O2SAT 97
--- NOTE | 2021-05-06 15:00 | PC.NURSE ---
Pt bladder scanned totalling greater than 900 ml, Pacheco catheter inserted - 1400 ml of urine drained after insertion. Pt reports decrease in abdominal discomfort. Will continue to monitor.
[2021-05-06 15:48] LABS: Troponin-I High Sensitivity 17.8 ng/L (<3.5-35.0)
[2021-05-06] MEDS: Tamsulosin HCL 0.4 MG CAPSULE PO (16:38)
--- NOTE | 2021-05-06 18:17 | PC.NURSE ---
800 ml urine emptied from f/c. pt medically cleared to go home. awaiting ambulance to [facility] pickler pt. PCT Palak ([phone]) aware and is waiting on pt to arrive at his home.
[2021-05-06 18:23] VITALS: BP 123/71; PULSE 72; RESP 16; O2SAT 95
[2021-05-06 19:20] VITALS: BP 127/74; PULSE 71; RESP 20
--- NOTE | 2021-05-06 19:45 | PC.NURSE ---
EMS at bedside for transport.
== END 2021-05-06 20:06 | disposition home or self-care (01) ==
PROVIDERS: Emergency Provider Emergency Medicine; PCP Internal Medicine
DX: R33.9 Retention of urine, unspecified (principal); R10.9 Unspecified abdominal pain; Z79.899 Other long term (current) drug therapy
CPT/HCPCS: 36415; 51702; 51798; 74177; 80048; 80076; 81003; 82077; 83605; 83690; 83880; 84484; 85025; 85610; 93005; 99284; 99285; Q9967

== ENCOUNTER → 2021-05-30 10:12 | Outpatient (BNVA) | payer MEDICAID, SELFPAY | PROVIDERS: PCP Internal Medicine; Visit Provider Urology | DX: N40.1 Benign prostatic hyperplasia with lower urinary tract symptoms (principal); N13.8 Other obstructive and reflux uropathy | CPT/HCPCS: 51798; 99202 ==

== ENCOUNTER → 2021-06-29 15:09 | Outpatient (BNVA) | payer MEDICAID, SELFPAY | PROVIDERS: PCP Internal Medicine; Referring Provider Internal Medicine; Visit Provider Internal Medicine Cardiovascular Disease | DX: I50.22 Chronic systolic (congestive) heart failure (principal); I48.20 Chronic atrial fibrillation, unspecified | CPT/HCPCS: 99212 ==

== ENCOUNTER 2021-08-29 20:22 | Emergency (ER) | payer MEDICAID, SELFPAY ==
--- NOTE | ~2021-08-29 | CT_ITS ---
EXAMINATION: CT ANGIOGRAM OF THE CHEST WITH AND WITHOUT CONTRAST (CT PULMONARY ANGIOGRAM FOR PE) CLINICAL INFORMATION: Reason for Exam Pneumonia? PE? COMPARISON: CT chest 01/08/2021 TECHNIQUE: Prior to contrast administration, noncontrast localization images were obtained. Subsequently, multidetector volumetric imaging was performed from the thoracic inlet to below the diaphragms following the administration of 100 mL Omnipaque 350 intravenous contrast. No contrast reaction reported Sagittal, coronal, and MIP oblique sagittal reformatted images were obtained on the CT workstation, uploaded to PACS, and reviewed. This CT examination was performed using dose optimization techniques as appropriate, variously including the following: *Automated exposure control *Adjustment of mA and/or kV according to patient size (this includes techniques or standardized protocols for targeted exams where dose is matched to indication/reason for exam; i.e. extremities or head) *Use of iterative reconstruction technique Total exam dose-length product 1809 mGy-cm FINDINGS: QUALITY OF STUDY/CONTRAST BOLUS: Satisfactory. There is significant respiratory artifact.. PULMONARY ARTERIES: No central or large segmental pulmonary emboli. THORACIC AORTA: No aneurysm or dissection. LUNG: No focal consolidation, nodules or masses. Scattered areas of atelectasis. PLEURA: No pleural effusion or pneumothorax. MEDIASTINUM: The heart is enlarged. Narrowing of the membranous trachea which may be due to expiration imaging. No pericardial effusion. No hilar or mediastinal lymphadenopathy. No evidence of septal bowing or right heart strain. CHEST WALL/AXILLA: No axillary or internal mammary lymphadenopathy. OSSEOUS STRUCTURES: No acute or suspicious osseous abnormality. UPPER ABDOMEN: Unremarkable. There is significant reflux of contrast into the IVC and hepatic veins suggesting elevated right heart pressures. CT/CT angio chest PE protocol IMPRESSION: 1. No convincing evidence of pulmonary emboli. 2. Cardiomegaly with Reflux of contrast into the IVC and hepatic veins suggesting elevated right heart pressure. VTE: Negative, but limited
--- NOTE | ~2021-08-29 | XR_ITS ---
EXAMINATION: XR CHEST CLINICAL INFORMATION: CHF with question of fluid overload COMPARISON: Chest radiograph 03/07/2021 TECHNIQUE: Frontal view of the chest was obtained. FINDINGS: Again seen is cardiomegaly with the heart appearing larger when compared to the prior exam. There is no gross evidence of CHF. No pleural effusions are seen. Some chronic increased markings are seen. No focal consolidations. XR/XR chest 1V IMPRESSION: Cardiomegaly without gross CHF. No acute intrathoracic disease.
--- NOTE | ~2021-08-29 | CT_ITS ---
EXAMINATION: CT ABDOMEN AND PELVIS WITH CONTRAST CLINICAL INFORMATION: Abdominal pain and distention COMPARISON: CT abdomen pelvis 05/06/2021 TECHNIQUE: Multidetector volumetric images were obtained from the superior aspect of the liver through the pubic symphysis following administration 85 mL of Omnipaque 350 intravenous contrast. Sagittal and coronal reformatted images were obtained on the technologist's workstation. Oral contrast: No Marked respiratory motion artifact degrades the images. This CT examination was performed using dose optimization techniques as appropriate, variously including the following: *Automated exposure control *Adjustment of mA and/or kV according to patient size (this includes techniques or standardized protocols for targeted exams where dose is matched to indication/reason for exam; i.e. extremities or head) *Use of iterative reconstruction technique DLP: 1809 mGy-cm FINDINGS: LUNG BASES: See report chest CT same day. Cardiomegaly. LIVER, GALLBLADDER, AND BILIARY TREE: The liver is normal in size, shape, and attenuation. No focal hepatic lesion or biliary ductal dilatation is present. The gallbladder is unremarkable with no evidence of radiopaque gallstones, gallbladder wall thickening, or obvious pericholecystic inflammatory changes. No ascites is present. PANCREAS: Unremarkable. SPLEEN: Unremarkable. ADRENAL GLANDS: Unremarkable. KIDNEYS AND URETERS: The kidneys are normal in size, shape, and attenuation aside from left upper pole cortical scarring. No hydronephrosis, hydroureter, or calculi seen. No perinephric stranding. BLADDER: Unremarkable. GASTROINTESTINAL TRACT: A large amount of stool is present in the rectum. The small and large bowel are unremarkable without evidence of bowel obstruction. The appendix is unremarkable. ABDOMINAL WALL: Mild diastases of the rectus muscles a small periumbilical hernia containing only fat. LYMPH NODES: No retroperitoneal lymphadenopathy. VASCULAR: Unremarkable. PELVIC VISCERA: Prostate and seminal vesicles appear normal. OSSEOUS STRUCTURES: Degenerative changes present most marked at L4-L5 and L5-S1. CT/CT abdomen pelvis w con IMPRESSION: 1. A cause for the patient's abdominal pain and distention has not been found. 2. Incidental note made of left upper pole renal scarring, moderate rectal stool and degenerative changes L4-S1. Fleischner guidelines were followed.
[2021-08-29 20:37] VITALS: BP 151/86; PULSE 74; O2SAT 96
--- NOTE | 2021-08-29 20:50 | ECG_ITS ---
Test Reason : ABDOMINAL PAIN Blood Pressure : / mmHG Vent. Rate : 066 BPM Atrial Rate : 066 BPM P-R Int : 136 ms QRS Dur : 088 ms QT Int : 402 ms P-R-T Axes : 019 033 051 degrees QTc Int : 421 ms Poor data quality Possible Atrial fibrillation with frequent Premature ventricular complexes Low voltage QRS Cannot rule out Anteroseptal infarct (cited on or before 11-JUN-2011) Abnormal ECG When compared with ECG of 06-MAY-2021 11:09, Poor data quality in current ECG precludes serial comparison Referred By: Yeison Worley Electronically Signed By:COLETTE BALL MD
[2021-08-29 20:56] VITALS: BP 129/75; PULSE 64; RESP 19; O2SAT 95; BMI 45.1
--- NOTE | 2021-08-29 21:22 | ED.GENADULT ---
HPI - General Adult General Chief complaint: General Medical Stated complaint: SOB Time Seen by Provider: 08/29/21 20:41 Source: patient Mode of arrival: ambulatory Limitations: no limitations History of Present Illness HPI narrative: 66-year-old male past medical history of CHF, pancreatitis, BPH, hypertension, obesity, left hemiparesis due to CVA presents to ED for abdominal pain with distention, bilateral lower extremity swelling, Shortness of breath, constipation and back pain. patient denies any chest pain. Patient states no fever or chills. patient denies any calf pain. Related Data Home Medications Medication Instructions Recorded Confirmed citalopram 40 mg tablet 1 tab PO DAILY@1200 01/08/21 06/29/21 dabigatran etexilate 150 mg 1 cap PO BID@1200,209901/08/21 06/29/21 capsule (Pradaxa) hydroxyzine HCl 10 mg tablet 10 mg PO BEDTIME 01/08/21 06/29/21 levetiracetam 1,000 mg tablet 1 tab PO BID@1200,209901/08/21 06/29/21 melatonin 5 mg tablet 2 tab PO BEDTIME 01/08/21 06/29/21 metoprolol succinate 25 mg 1 tab PO QAM 01/08/21 06/29/21 tablet,extended release 24 hr oxcarbazepine 300 mg tablet 1 tab PO BID@1200,209901/08/21 06/29/21 pantoprazole 40 mg tablet,delayed 1 tab PO QAM 01/08/21 06/29/21 release simvastatin 20 mg tablet 1 tab PO QPM 01/08/21 06/29/21 tizanidine 4 mg tablet 0.5 tab PO TID 01/08/21 06/29/21 albuterol sulfate 90 mcg/actuation 2 puff INHALATION Q4-6H PRN 02/11/21 06/29/21 aerosol inhaler (ProAir HFA) ascorbic acid (vitamin C) 500 mg 500 mg PO 05/30/21 06/29/21 tablet (Vitamin C) ferrous gluconate 324 mg (38 mg 324 mg PO 05/30/21 06/29/21 iron) tablet gabapentin 100 mg capsule 200 mg PO TID 05/30/21 06/29/21 polyvinyl alcohol 1.4 % eye drops 1 drp OPHTHALMIC (EYE) Q4H PRN 05/30/21 06/29/21 (Artificial Tears (polyvinyl alcohol)) sennosides 8.6 mg tablet (Senna 17.2 mg PO BEDTIME 05/30/21 06/29/21 Laxative) valsartan 80 mg tablet 80 mg PO 05/30/21 06/29/21 Previous Rx's Medication Instructions Recorded acetaminophen 325 mg tablet 650 mg PO QID PRN #20 tab 01/11/21 (Tylenol) furosemide 20 mg tablet 20 mg PO DAILY #30 tab 01/11/21 lidocaine 4 % topical patch 1 patch TOPICAL DAILY PRN #10 ea 01/11/21 polyethylene glycol 3350 17 gram 17 g PO BID #30 ea 01/11/21 oral powder packet albuterol sulfate 1 amp INHALATION Q6H #0 ml 02/14/21 chair, wheel (Wheel chair) #1 ea 02/14/21 docusate sodium 100 mg capsule 100 mg PO BID 30 Days #60 cap 02/14/21 nebulizers #1 ea 02/14/21 nifedipine 30 mg tablet,extended 30 mg PO DAILY 30 Days #30 tab 02/14/21 release 24 hr prednisone 20 mg tablet 40 mg PO DAILY 3 Days #6 tab 02/14/21 tamsulosin 0.4 mg capsule (Flomax) 0.4 mg PO BEDTIME #14 cap 05/06/21 doxazosin 4 mg tablet 4 mg PO BEDTIME 90 Days #90 tab 05/30/21 finasteride 5 mg tablet 5 mg PO DAILY 90 Days #90 tab 05/30/21 Allergies Allergy/AdvReac Type Severity Reaction Status Date / Time No Known Allergies Allergy Verified 08/29/21 21:04 Review of Systems Review of Systems: Yes all other systems are reviewed and are negative Constitutional: Constitutional: Reports as per HPI and Reports no additional constitutional complaints Eyes: Eyes: Reports as per HPI and Reports no additional eye complaints ENT: Reports system reviewed and no additional complaints, except as documented and Reports as per HPI Cardiovascular: Cardiovascular: Reports as per HPI, Reports no additional cardiovascular complaints and Reports dyspnea Respiratory: Respiratory: Reports as per HPI, Reports no additional respiratory complaints and Reports dyspnea Gastrointestinal: Gastrointestinal: Reports as per HPI, Reports no additional gastrointestinal complaints and Reports abdominal pain ( Distended) Genitourinary: Genitourinary: Reports no additional male genitourinary complaints and Reports as per HPI Musculoskeletal: Musculoskeletal: Reports no additional musculoskeletal complaints, Reports as per HPI and Reports back pain Comments: bilateral leg swelling Neurologic: Reports system reviewed and no additional complaints, except as documented and Reports as per HPI [facility] Past Medical History Medical History (Updated 08/30/21 @ 01:56 by ISAAC Bangura) Anemia Bradycardia Cardiomyopathy Chronic atrial fibrillation Chronic HFrEF (heart failure with reduced ejection fraction) CVA (cerebral vascular accident) HTN (hypertension) Obesity Raynaud disease Family History Family History Father Emphysema lung Mother Cardiovascular disease Social History Social History Household Members: Caregiver Housing: House Do you presently have visiting nurse or other home services: Yes Unable to assess alcohol history related to: Unknown Alcohol intake: never Patient Tobacco Use Status: Never used Tobacco Second Hand Smoke Exposure: No Advance Directives: Yes Advance Directives on File: Yes Advance Directives Date on File: 11/23/20 service: No Current occupational status: disabled Physical Exam Vital Signs: Vital Signs: Last Vital Signs Pulse 100 08/30/21 00:46 Resp 17 08/30/21 00:46 BP 132/91 H 08/30/21 00:46 Pulse Ox 97 08/30/21 00:46 BMI result Body Mass Index 45.1 Const: General: cooperative, healthy appearing, comfortable, no acute distress, well developed, alert, awake and Physically active Orientation/consciousness: patient oriented x3 HENMT: Head: Yes normal to inspection, Yes No palpable skull fracture present, Yes normocephalic, Yes atraumatic and No abrasion Eyes: General: appearance normal, both eyes and all related structures Neck: Neck: Yes normal visual inspection, Yes full ROM, Yes no lymphadenopathy, No no meningeal signs, No trachea midline, No supple, No anterior neck swelling and No tender Chest: Chest palpation & inspection: normal inspection of the chest and normal palpation of entire chest wall Resp: Effort & Inspection: normal respiratory effort and able to speak in complete sentences Auscultation: clear to auscultation bilaterally Cardio: Jugular venous distension: no JVD Heart sounds: S1 normal heart sound present and S2 normal heart sound present GI: Inspection: Yes normal to inspection and Yes distended Palpation (GI): not firm, Tenderness to palpation present (GI), no guarding and not rigid : General: No CVA tenderness and Yes no CVA tenderness Back/Spine/Pelvis: Back: no CVA tenderness, No CVA tenderness and No back tenderness Skin: General skin exam: no rashes or lesions noted and elasticity normal Neuro: General: patient oriented x3, gait normal, No no meningeal signs and CN's II-XI intact bilaterally Cranial nerves: Yes CN's II-XII intact bilaterally Extrem: Other: positive for bilateral lower extremity swelling with pitting edema. Negative for any erythema or calf tenderness. positive for palpable pulses. right lower extremity motor/neuro exam intact. Left lower extremity positive for chronic paralysis/ weakness due to stroke in the past. Psych: Appearance: grossly normal, well kempt and not disheveled Course Course Course Narrative: sticks, EKG, and cardiac labs ordered for possible fluid overload / anasarca due to CHF. Will order bladder scan Reevaluation(s) Reevaluation #1: bladder scan only 371. Patient sent for abdominal CT scan to rule obstruction/ ascites. BNP only 337. Patient discussed with Dr. Kumar states presently no indication for admission due to BNP being only 337, chest x-ray negative for fluid overload, and O2 saturation normal. recommends just Lasix 40 mg IV. Reevaluation #2: chest CTA abdominal CT came back normal and negative for PE, ascites, small bowel obstruction. Patient does have large rectal fecal stool. Kayexalate ordered. Repeat troponin, chemistry, and coags ordered Time: 00:32 Reevaluation #3: patient urinate on his own. CT scan came back negative for ascites or small-bowel obstruction. CT scan does show large amount of stool in rectum and lumbar radiculopathy. Patient did complain of constipation for 1 week. Rectal exam was performed negative for hard stool at entry. stool is high up and soft. Fleet enema given to patient. Patient on room air 99%. Not Suspecting ND, CHF exacerbation, or PE. On room air O2 saturation 97%. Patient has chronic hyponatremia and chronic elevated PTT. Patient started having some bowel movements. will give him dose of magnesium citrate to relieve rest of feces. Time: 01:51 Medical Decision Making [facility] Narrative Medical decision making narrative: constipation. lumbar radiculopathy Lab Data Result diagrams: 08/29/21 21:20 08/30/21 01:10 Labs: Lab Results 08/29/21 08/29/21 08/29/21 Range/Units 21:20 21:20 21:20 WBC 8.8 (4.8-10.8) X10*3/uL RBC 3.43 L (4.60-5.80) X10*6/uL Hgb 11.2 L (14.0-18.0) g/dl Hct 32.6 L (42.0-52.0) % MCV 95.0 (80.0-98.0) fL MCH 32.7 (27.0-33.0) pg MCHC 34.4 (31.0-36.0) g/dl RDW 14.9 (11.0-16.0) % Plt Count 126 L (160-400) X10*3/uL MPV 10.0 (9.4-12.4) fL Immature Gran % (Auto) 0.3 (0.0-0.4) % Neut % (Auto) 83.5 H (45-73) % Lymph % (Auto) 7.7 L (20-40) % [place] % (Auto) 7.8 (2-11) % Eos % (Auto) 0.6 (0-4) % Baso % (Auto) 0.1 (0-2) % Lymph # (Auto) 0.7 L (1.2-4.9) X10*3/uL [place] # (Auto) 0.7 (0.1-1.2) X10*3/uL Eos # (Auto) 0.1 (0.0-0.4) X10*3/uL Baso # (Auto) 0.0 (0.0-0.2) X10*3/uL Abs Immat Gran (auto) 0.03 (0.00-0.03) X10*3/uL Absolute Neuts (auto) 7.3 (2.0-8.3) x10*3/uL Absolute Nucleated RBC 0.000 (0.0-0.012) X10*3/uL Nucleated RBC % (auto) 0.0 (0.0-0.2) /100WBC PT 16.9 H (9.9-13.0) SEC INR 1.5 H (0.9-1.1) APTT 62.7 H* (24.1-38.0) SEC Sodium 127 L (135-145) mmol/L Potassium 5.3 H (3.3-5.1) mmol/L Chloride 89 L (96-108) mmol/L Carbon Dioxide 30 H (22-29) mmol/L Anion Gap 13 (12-20) BUN 22 H (9-16) mg/dL Creatinine 1.40 (0.5-1.4) mg/dL Estim Creat Clear Calc 69.3 Estimated GFR 51 Random Glucose 111 (60-115) mg/dL Calcium 9.0 D (8.4-10.2) mg/dL Total Bilirubin 0.5 (0.0-1.0) mg/dL AST 21 (5-37) U/L ALT 18 (0-40) U/L Alkaline Phosphatase 61 D (39-117) U/L Troponin I High Sens (<3.5-35.0) ng/L B-Natriuretic Peptide (<100) pg/mL Total Protein 7.4 (6.5-8.0) g/dL Albumin 4.5 (3.5-5.0) g/dL Urine Color Urine Appearance Urine pH (5.0-8.0) Ur Specific [place] (1.005-1.025) Urine Protein (NEG-TRACE) MG/DL Urine Glucose (UA) (NEG) MG/DL Urine Ketones (NEG) MG/DL Urine Blood (NEG) Urine Nitrite (NEG) Ur Leukocyte Esterase (NEG) COVID-19 (GIOVANA) (Negative) COVID-19 Clin Com 08/29/21 08/29/21 08/30/21 Range/Units 21:20 21:20 01:02 WBC (4.8-10.8) X10*3/uL RBC (4.60-5.80) X10*6/uL Hgb (14.0-18.0) g/dl Hct (42.0-52.0) % MCV (80.0-98.0) fL MCH (27.0-33.0) pg MCHC (31.0-36.0) g/dl RDW (11.0-16.0) % Plt Count (160-400) X10*3/uL MPV (9.4-12.4) fL Immature Gran % (Auto) (0.0-0.4) % Neut % (Auto) (45-73) % Lymph % (Auto) (20-40) % [place] % (Auto) (2-11) % Eos % (Auto) (0-4) % Baso % (Auto) (0-2) % Lymph # (Auto) (1.2-4.9) X10*3/uL [place] # (Auto) (0.1-1.2) X10*3/uL Eos # (Auto) (0.0-0.4) X10*3/uL Baso # (Auto) (0.0-0.2) X10*3/uL Abs Immat Gran (auto) (0.00-0.03) X10*3/uL Absolute Neuts (auto) (2.0-8.3) x10*3/uL Absolute Nucleated RBC (0.0-0.012) X10*3/uL Nucleated RBC % (auto) (0.0-0.2) /100WBC PT (9.9-13.0) SEC INR (0.9-1.1) APTT (24.1-38.0) SEC Sodium (135-145) mmol/L Potassium (3.3-5.1) mmol/L Chloride (96-108) mmol/L Carbon Dioxide (22-29) mmol/L Anion Gap (12-20) BUN (9-16) mg/dL Creatinine (0.5-1.4) mg/dL Estim Creat Clear Calc Estimated GFR Random Glucose (60-115) mg/dL Calcium (8.4-10.2) mg/dL Total Bilirubin (0.0-1.0) mg/dL AST (5-37) U/L ALT (0-40) U/L Alkaline Phosphatase (39-117) U/L Troponin I High Sens 12.0 (<3.5-35.0) ng/L B-Natriuretic Peptide 337 H (<100) pg/mL Total Protein (6.5-8.0) g/dL Albumin (3.5-5.0) g/dL Urine Color STRAW Urine Appearance CLEAR Urine pH 5.5 (5.0-8.0) Ur Specific [place] <= 1.005 (1.005-1.025) Urine Protein NEG (NEG-TRACE) MG/DL Urine Glucose (UA) NEG (NEG) MG/DL Urine Ketones NEG (NEG) MG/DL Urine Blood NEG (NEG) Urine Nitrite NEG (NEG) Ur Leukocyte Esterase NEG (NEG) COVID-19 (GIOVANA) Negative (Negative) COVID-19 Clin Com See Note 08/30/21 08/30/21 08/30/21 Range/Units 01:10 01:10 01:10 WBC (4.8-10.8) X10*3/uL RBC (4.60-5.80) X10*6/uL Hgb (14.0-18.0) g/dl Hct (42.0-52.0) % MCV (80.0-98.0) fL MCH (27.0-33.0) pg MCHC (31.0-36.0) g/dl RDW (11.0-16.0) % Plt Count (160-400) X10*3/uL MPV (9.4-12.4) fL Immature Gran % (Auto) (0.0-0.4) % Neut % (Auto) (45-73) % Lymph % (Auto) (20-40) % [place] % (Auto) (2-11) % Eos % (Auto) (0-4) % Baso % (Auto) (0-2) % Lymph # (Auto) (1.2-4.9) X10*3/uL [place] # (Auto) (0.1-1.2) X10*3/uL Eos # (Auto) (0.0-0.4) X10*3/uL Baso # (Auto) (0.0-0.2) X10*3/uL Abs Immat Gran (auto) (0.00-0.03) X10*3/uL Absolute Neuts (auto) (2.0-8.3) x10*3/uL Absolute Nucleated RBC (0.0-0.012) X10*3/uL Nucleated RBC % (auto) (0.0-0.2) /100WBC PT 15.8 H (9.9-13.0) SEC INR 1.4 H (0.9-1.1) APTT 62.2 H* (24.1-38.0) SEC Sodium 129 L (135-145) mmol/L Potassium 5.1 (3.3-5.1) mmol/L Chloride 90 L (96-108) mmol/L Carbon Dioxide 30 H (22-29) mmol/L Anion Gap 14 (12-20) BUN 21 H (9-16) mg/dL Creatinine 1.30 (0.5-1.4) mg/dL Estim Creat Clear Calc 74.6 Estimated GFR 56 Random Glucose 103 (60-115) mg/dL Calcium 9.2 (8.4-10.2) mg/dL Total Bilirubin 0.7 (0.0-1.0) mg/dL AST 24 (5-37) U/L ALT 18 (0-40) U/L Alkaline Phosphatase 61 (39-117) U/L Troponin I High Sens 14.2 (<3.5-35.0) ng/L B-Natriuretic Peptide (<100) pg/mL Total Protein 7.8 (6.5-8.0) g/dL Albumin 4.7 (3.5-5.0) g/dL Urine Color Urine Appearance Urine pH (5.0-8.0) Ur Specific [place] (1.005-1.025) Urine Protein (NEG-TRACE) MG/DL Urine Glucose (UA) (NEG) MG/DL Urine Ketones (NEG) MG/DL Urine Blood (NEG) Urine Nitrite (NEG) Ur Leukocyte Esterase (NEG) COVID-19 (GIOVANA) (Negative) COVID-19 Clin Com ECG Data Interpretation: sinus rhythm with PVCs. Ventricular rate 66. Pr interval 136. QRS 88. QTC 421. Negative STEMI Discharge Plan Discharge Clinical Impression: Constipation, Abdominal pain, Lumbar radiculopathy Patient Disposition: Home, Self-Care Instructions: Constipation (ED), Lumbar Radiculopathy (ED), Fleet Enema (ED) Additional Instructions: lemos tomograf?a computarizada muestra estre?imiento y radiculopat?a lumbar. Lemos an?lisis de meeta regres? al inicio. El trabajo de laboratorio result? negativo para ataque card?aco, insuficiencia card?courtney / sobrecarga de l?quidos, obstrucci?n del intestino simmons o infecci?n urinaria. presley un seguimiento con lemos proveedor de atenci?n primaria. regrese al servicio de urgencias por cualquier dolor en el pecho, dificultad para respirar, dolor abdominal, debilidad, mareos, fiebre, escalofr?os, empeoramiento de la hinchaz?n de las piernas, enrojecimiento, debilidad, mareos, dolor en la pantorrilla o cualquier otro s?ntoma preocupante. Prescriptions: No Action citalopram 40 mg tablet 1 tab PO DAILY@1200 RF: 0 tizanidine 4 mg tablet 0.5 tab PO TID RF: 0 oxcarbazepine 300 mg tablet 1 tab PO BID@1200,2100 RF: 0 pantoprazole 40 mg tablet,delayed release (DR/EC) 1 tab PO QAM RF: 0 simvastatin 20 mg tablet 1 tab PO QPM RF: 0 metoprolol succinate 25 mg tablet extended release 24 hr 1 tab PO QAM RF: 0 hydroxyzine HCl 10 mg tablet 10 mg PO BEDTIME RF: 0 levetiracetam 1,000 mg tablet 1 tab PO BID@1200,2100 RF: 0 melatonin 5 mg tablet 2 tab PO BEDTIME RF: 0 Pradaxa 150 mg capsule 1 cap PO BID@1200,2100 RF: 0 polyethylene glycol 3350 17 gram Powder In Packet 17 g PO BID Qty: 30 RF: 0 furosemide 20 mg Tablet 20 mg PO DAILY Qty: 30 RF: 0 lidocaine 4 % adhesive patch,medicated 1 patch topical DAILY PRN (Reason: pain) Qty: 10 RF: 0 acetaminophen [Tylenol] 325 mg tablet 650 mg PO QID PRN (Reason: pain) Qty: 20 RF: 0 albuterol sulfate [ProAir HFA] 90 mcg/actuation HFA aerosol inhaler 2 puff inhalation Q4-6H PRN (Reason: Wheezing) RF: 0 nifedipine 30 mg Tablet Extended Release 24hr 30 mg PO DAILY 30 Days Qty: 30 RF: 0 prednisone 20 mg Tablet 40 mg PO DAILY 3 Days Qty: 6 RF: 0 docusate sodium 100 mg Capsule 100 mg PO BID 30 Days Qty: 60 RF: 0 (DME) nebulizers Misc See Rx Instructions .ROUTE .MEDSUPPLY Qty: 1 RF: 0 (DME) Wheel chair Kit See Rx Instructions .ROUTE .MEDSUPPLY Qty: 1 RF: 0 albuterol sulfate 2.5 mg /3 mL (0.083 %) solution for nebulization 1 amp inhalation Q6H Qty: 0 RF: 0 tamsulosin [Flomax] 0.4 mg capsule 0.4 mg PO BEDTIME Qty: 14 RF: 0 ferrous gluconate 324 mg (38 mg iron) tablet 324 mg PO RF: 0 gabapentin 100 mg capsule 200 mg PO TID RF: 0 ascorbic acid (vitamin C) [Vitamin C] 500 mg tablet 500 mg PO RF: 0 valsartan 80 mg tablet 80 mg PO RF: 0 polyvinyl alcohol [Artificial Tears (polyvin alc)] 1.4 % drops 1 drp ophthalmic (eye) Q4H PRNRF: 0 sennosides [Senna Laxative] 8.6 mg tablet 17.2 mg PO BEDTIME RF: 0 finasteride 5 mg tablet 5 mg PO DAILY 90 Days Qty: 90 RF: 1 doxazosin 4 mg tablet 4 mg PO BEDTIME 90 Days Qty: 90 RF: 1
[2021-08-29 21:26] LABS: MANUAL DIFF FLAG NO
[2021-08-29 21:27] LABS: Basophils Percent Auto 0.1 % (0-2); Eosinophils Absolute Auto 0.1 X10*3/uL (0.0-0.4); Eosinophils Percent Auto 0.6 % (0-4); Hematocrit 32.6 % (42.0-52.0); Hemoglobin 11.2 g/dl (14.0-18.0); Imm Gran Abs Auto 0.03 X10*3/uL (0.00-0.03); Imm Gran Pct Auto 0.3 % (0.0-0.4); Lymphocytes Absolute Auto 0.7 X10*3/uL (1.2-4.9); Lymphocytes Percent Auto 7.7 % (20-40); Mean Corpuscular HGB Conc 34.4 g/dl (31.0-36.0); Mean Corpuscular Hemoglobin 32.7 pg (27.0-33.0); Monocytes Absolute Auto 0.7 X10*3/uL (0.1-1.2); Monocytes Percent Auto 7.8 % (2-11); Neutrophils Absolute Auto 7.3 x10*3/uL (2.0-8.3); Neutrophils Percent Auto 83.5 % (45-73); Platelet Count 126 X10*3/uL (160-400); Red Blood Count 3.43 X10*6/uL (4.60-5.80); Red Cell Distribution Width 14.9 % (11.0-16.0); White Blood Count 8.8 X10*3/uL (4.8-10.8)
[2021-08-29 21:32] LABS: INTERNATIONAL NORM RATIO 1.5 (0.9-1.1); Prothrombin Time 16.9 SEC (9.9-13.0)
[2021-08-29] MEDS: Furosemide 40 MG/4 ML VIAL IVPUSH (21:35)
[2021-08-29 21:42] LABS: COVID-19 Test Negative (Negative)
[2021-08-29 21:47] LABS: B Type Natriuretic Peptide 337 pg/mL (<100)
[2021-08-29 21:48] LABS: Partial Thromboplastin Time 62.7 SEC (24.1-38.0)
[2021-08-29 22:01] LABS: Alanine Aminotransferase 18 U/L (0-40); Albumin Level 4.5 g/dL (3.5-5.0); Alkaline Phosphatase 61 U/L (39-117); Anion Gap 13 (12-20); Aspartate Amino Transferase 21 U/L (5-37); Bilirubin Total 0.5 mg/dL (0.0-1.0); Blood Urea Nitrogen 22 mg/dL (9-16); Carbon Dioxide 30 mmol/L (22-29); Chloride 89 mmol/L (96-108); Creatinine Clr Calc Pharmacy 69.3; Estimated Glomerular Filt Rate 51; Glucose Random 111 mg/dL (60-115); Potassium 5.3 mmol/L (3.3-5.1); Sodium 127 mmol/L (135-145); Total Protein 7.4 g/dL (6.5-8.0)
[2021-08-29] MEDS: iohexoL 350 MG/ML 100 ML INFUS..BTL IV (23:18)
[2021-08-30 00:46] VITALS: BP 132/91; PULSE 100; RESP 17; O2SAT 97
[2021-08-30] MEDS: Sodium Polystyrene Sulfon/Sorb 15 GM/60 ML ORAL.SUSP 30 GM PO (00:47)
[2021-08-30] MEDS: Mineral OiL enema 133 ML ENEMA PR (01:18)
[2021-08-30 01:19] LABS: Appearance Urine CLEAR; Color Urine STRAW; Glucose Urine UA NEG (NEG); Leukocyte Esterase Urine NEG (NEG); Nitrite Urine NEG (NEG); PH 5.5 (5.0-8.0); Specific Gravity - Urine <= 1.005 (1.005-1.025); Urine Blood NEG (NEG); Urine Ketones NEG (NEG); Urine Protein NEG (NEG-TRACE)
[2021-08-30 01:20] LABS: INTERNATIONAL NORM RATIO 1.4 (0.9-1.1); Prothrombin Time 15.8 SEC (9.9-13.0)
[2021-08-30 01:26] LABS: Partial Thromboplastin Time 62.2 SEC (24.1-38.0)
[2021-08-30 01:39] LABS: Troponin-I High Sensitivity 14.2 ng/L (<3.5-35.0)
[2021-08-30 01:47] LABS: Alanine Aminotransferase 18 U/L (0-40); Albumin Level 4.7 g/dL (3.5-5.0); Alkaline Phosphatase 61 U/L (39-117); Anion Gap 14 (12-20); Aspartate Amino Transferase 24 U/L (5-37); Bilirubin Total 0.7 mg/dL (0.0-1.0); Blood Urea Nitrogen 21 mg/dL (9-16); Calcium 9.2 mg/dL (8.4-10.2); Carbon Dioxide 30 mmol/L (22-29); Chloride 90 mmol/L (96-108); Creatinine Clr Calc Pharmacy 74.6; Estimated Glomerular Filt Rate 56; Glucose Random 103 mg/dL (60-115); Potassium 5.1 mmol/L (3.3-5.1); Sodium 129 mmol/L (135-145); Total Protein 7.8 g/dL (6.5-8.0)
--- NOTE | 2021-08-30 02:31 | PC.NURSE ---
Pt had medium sized soft BM this shift after meds given. Pt educated on meds to take at home.
== END 2021-08-30 03:06 | disposition home or self-care (01) ==
PROVIDERS: Physician Assistant; Emergency Provider Emergency Medicine Emergency Medical Services; PCP Internal Medicine
DX: K59.00 Constipation, unspecified (principal); R10.9 Unspecified abdominal pain; M54.16 Radiculopathy, lumbar region; Z20.822 Contact with and (suspected) exposure to COVID-19; R06.02 Shortness of breath; R22.43 Localized swelling, mass and lump, lower limb, bilateral; I11.0 Hypertensive heart disease with heart failure; I50.9 Heart failure, unspecified; I69.359 Hemiplegia and hemiparesis following cerebral infarction affecting unspecified side; I48.20 Chronic atrial fibrillation, unspecified
CPT/HCPCS: 36415; 51701; 51798; 71045; 71275; 74177; 80053; 81003; 83880; 84484; 85025; 85610; 85730; 87635; 93005; 96374; 99284; J1940; Q9967

== ENCOUNTER 2021-09-20 15:05 | Inpatient (IN) | payer MEDICAID, SELFPAY ==
--- NOTE | ~2021-09-20 | XR_ITS ---
EXAMINATION: XR ABDOMEN KUB CLINICAL INDICATION: Abdominal pain. COMPARISON: CT 09/20/2021 TECHNIQUE: AP view of the abdomen. FINDINGS: There is increased gaseous prominence of small bowel throughout the abdomen. Gaseous distention of the stomach noted. This is a change from prior. Scattered gas within the colon. No acute osseous abnormality. XR/XR KUB IMPRESSION: Increased gaseous distention of small bowel with gaseous distention of the stomach. This is a change from prior. There is scattered gas noted in the colon. The appearance could represent an early obstruction. Ileus possible.
--- NOTE | ~2021-09-20 | CT_ITS ---
EXAMINATION: CT HEAD WITHOUT CONTRAST CLINICAL INFORMATION: Seizures postcardiac arrest. COMPARISON: CT scan of the head 11/23/2020. TECHNIQUE: Contiguous axial imaging was performed from the skull base to vertex without intravenous administration of contrast. This CT examination was performed using dose optimization techniques as appropriate, variously including the following: *Automated exposure control *Adjustment of mA and/or kV according to patient size (this includes techniques or standardized protocols for targeted exams where dose is matched to indication/reason for exam; i.e. extremities or head) *Use of iterative reconstruction technique DLP: 2682 mGy-cm FINDINGS: There is gliosis and encephalomalacia involving the right cerebral hemisphere consistent with chronic changes of an old infarct within the vascular territory of the right middle cerebral artery. There is corresponding ex vacuo enlargement of the right lateral ventricle. Scattered chronic small vessel ischemic changes are also visualized within the periventricular white matter. No evidence of acute territorial infarct. No acute hemorrhage or abnormal extra-axial collection. No hydrocephalus. The calvarium and skull base are intact. Mastoid air cells and middle ear cavities are well aerated. Mild paranasal sinus disease with layering fluid within the sphenoid sinus and the maxillary sinus. Globes and orbits are grossly symmetric. CT/CT head/brain wo con IMPRESSION: There chronic changes of an old right middle cerebral artery territory infarct. Scattered chronic small vessel ischemic changes are also visualized within the periventricular white matter. No evidence of acute territorial infarct or hemorrhage.
--- NOTE | ~2021-09-20 | XR_ITS ---
EXAMINATION: XR CHEST CLINICAL INFORMATION: Hypoxia. Rule out pneumothorax. COMPARISON: 09/24/2021 TECHNIQUE: Frontal view of the chest was obtained. FINDINGS: Endotracheal tube terminates 2.5 cm above the sofía. Enteric tube extends into the stomach. Right internal jugular central venous catheter terminates near the cavoatrial junction. Cardiac leads overlie the chest. Lung volumes are low. Diffuse bilateral airspace opacities have increased since prior. No pleural effusion or pneumothorax. The cardiomediastinal silhouette is enlarged, unchanged. XR/XR chest 1V IMPRESSION: Endotracheal tube terminates 2.5 cm above the sofía. Worsening bilateral diffuse airspace opacities.
--- NOTE | ~2021-09-20 | XR_ITS ---
EXAMINATION: XR CHEST CLINICAL INFORMATION: Post intubation COMPARISON: 08/29/2021 TECHNIQUE: Frontal view of the chest was obtained. FINDINGS: Endotracheal tube terminates 3.5 cm above the sofía. Enteric tube overlies the lower esophagus. The lungs are well expanded. Mild bronchial wall thickening is similar to prior imaging. No dense consolidation. No edema or effusion. No pneumothorax. The cardiomediastinal silhouette remains enlarged. No acute osseous abnormality. XR/XR chest 1V IMPRESSION: Endotracheal tube terminates 3.5 cm above the sofía. Enteric tube terminates over the distal esophagus. Recommend advancement. Mild bronchial wall thickening in the lungs with no consolidation.
--- NOTE | ~2021-09-20 | XR_ITS ---
EXAMINATION: XR CHEST CLINICAL INFORMATION: Central line placement COMPARISON: 09/24/2021 TECHNIQUE: Frontal view of the chest was obtained. FINDINGS: The endotracheal tube terminates 2.5 cm above the sofía. Enteric tube extends into the stomach. Right internal jugular central venous catheter terminates near the cavoatrial junction. Cardiac leads overlie the chest. Lung volumes are low. Patchy opacities of the right lung base. Increased retrocardiac opacity. No pleural effusion or pneumothorax. The cardiomediastinal silhouette remains prominent. XR/XR chest 1V IMPRESSION: Endotracheal tube terminating 2.5 cm above the sofía. Enteric tube has been advanced and now extends into the stomach. Right internal jugular central venous catheter terminates over the cavoatrial junction. No pneumothorax. Increased opacities at the lung bases favor atelectasis given the short interval change.
--- NOTE | ~2021-09-20 | XR_ITS ---
EXAMINATION: CHEST AND KUB. CLINICAL INFORMATION: Ileus COMPARISON: Chest 09/25/2021 at 5:31 AM TECHNIQUE: Chest one view and KUB. FINDINGS: Chest: The lungs are hypoexpanded with bilateral diffuse airspace opacities unchanged to previous study 09/25/2021. The heart size is enlarged with prominent vascularity is normal. There is a right jugular central venous catheter with its tip in the mid SVC. Endotracheal tube is 2.7 cm above the sofía. Enteric tube tip is below diaphragm. No gross bony abnormality seen. KUB: There is scattered gas and stool in the colon without distention. No organomegaly. No bony abnormality. XR/XR chest 1V IMPRESSION: No significant change in support lines and catheters and bilateral diffuse airspace opacities with hypoexpanded lungs. No distention is bowel loops visualized. There is mild gas seen in the transverse colon. There is an enteric tube tip in the stomach.
--- NOTE | ~2021-09-20 | XR_ITS ---
EXAMINATION: XR CHEST CLINICAL INFORMATION: New fever COMPARISON: 09/25/2021 TECHNIQUE: Frontal view of the chest was obtained. FINDINGS: Endotracheal tube tip lies 3.8 cm above the sofía. Enteric tube courses into the stomach. Right IJ central line tip lies in the region of the mid SVC. Lung volumes are symmetric. There is redemonstrated extensive airspace opacity throughout the left lung with worsening opacification at the retrocardiac left base. Multifocal opacities of the right lung appear overall improved compared to prior. No appreciable pneumothorax or definite pleural effusion. Prominent cardiac silhouette is similar to prior. No acute osseous findings are seen. XR/XR chest 1V IMPRESSION: Extensive airspace opacity throughout the left lung, worsened at the base compared to prior. Interval improvement in multifocal right lung opacities.
--- NOTE | ~2021-09-20 | CT_ITS ---
EXAMINATION: CT CHEST, ABDOMEN AND PELVIS WITHOUT CONTRAST CLINICAL INFORMATION: Acute respiratory failure post cardiac arrest. COMPARISON: Prior CT 09/20/2021. TECHNIQUE: Multidetector volumetric CT imaging of the chest abdomen and pelvis obtained Axial MIP volume rendering provided. Sagittal and coronal reformatted images were obtained. This CT examination was performed using dose optimization techniques as appropriate, variously including the following: *Automated exposure control *Adjustment of mA and/or kV according to patient size (this includes techniques or standardized protocols for targeted exams where dose is matched to indication/reason for exam; i.e. extremities or head) *Use of iterative reconstruction technique CONTRAST: A noncontrasted study. Reformatted coronal and sagittal imaging was performed. DLP: 1279 mGy-cm FINDINGS: SAP BW CONSULTANT, LINES TUBES: Director Learning And Development reviewed, no lines. LUNGS: Interstitial: Newly developed bilateral dense consolidation with air bronchogram involving diffusely both lungs, sparing only one third of the airspace at lung apices. Given the rapid development concerning for possible aspiration. Overall diminished lung volume. AIRWAYS: Endotracheal tube tip is 3 cm above sofía. PLEURA: No pleural effusion or pneumothorax. MEDIASTINUM AND VIANNEY: The visualized thyroid gland is unremarkable. No mediastinal, hilar or axillary lymphadenopathy. There is gastric tube passing below the diaphragm into the stomach. There is right IJ central line catheter in the tip of which is in the SVC. THORACIC AORTA: Ascending aorta mildly ectatic, 3.8 cm nonaneurysmal. CHEST WALL, LOWER NECK, SURROUNDING SOFT TISSUES: Normal. HEART AND PERICARDIUM: The heart is enlarged. No pericardial effusion. There are coronary calcifications. HEPATOBILIARY: Evaluation of the liver is limited on noncontrasted study. Grossly unremarkable. Gallbladder unremarkable. GALLBLADDER: Gallbladder unremarkable. SPLEEN: Spleen is normal in size. PANCREAS: No focal mass or ductal dilatation. GI TRACT: Stomach is distended. Evaluation of the bowel is limited on noncontrasted study. There are a few mildly dilated small bowel loops distal suggesting possibly mild ileus. No significant dilatation. Small bowels are measuring up to 3.6 cm. There is excess amount of stool in the colon and rectum suggests possible fecal impaction. There is no evidence of pneumatosis. ADRENALS: No adrenal nodules. KIDNEYS/URETERS: No hydronephrosis, stones or solid mass lesions. PELVIC ORGANS/BLADDER: There is a Pacheco catheter in place. Air in the bladder likely from instrumentation. PERITONEUM: There is trace amount of free fluid in the abdomen along the gutters, uncertain etiology. There is no free air. LYMPH NODES: no retroperitoneal or mesenteric lymphadenopathy. VASCULAR:Abdominal aorta normal in size, no aneurysm found. BONES, ABDOMINAL WALL AND SOFT TISSUES: Age-appropriate changes of the spine and skeletal system, no destructive osteolytic or osteosclerotic bone lesion found. CT/CT abdomen pelvis wo con IMPRESSION: Limited noncontrasted study. *Newly developed dense consolidation of both lungs with air bronchogram diffusely involving right and left lung lilly sparing only one third of the lung apices. Given the rapid development, the possibility of aspiration must be considered. *Cardiomegaly, coronary calcification. *Diminished lung volume. *Mildly dilated fluid-filled small bowel loops distally suggesting probably an ileus. Evaluation of the bowels are limited on this noncontrast study. Gastric tube in place properly positioned. May consider correlation with follow-up Gastrografin small bowel follow-through to assess small bowel motility and rule out possible obstruction. *Excess amount of stool in the distal colon and rectum suggesting possible fecal impaction. *Trace amount of free fluid in the abdomen, no free air. *Endotracheal tube properly positioned. Right IJ central line tip is in the SVC.
--- NOTE | ~2021-09-20 | XR_ITS ---
EXAMINATION: CHEST AND KUB. CLINICAL INFORMATION: Ileus COMPARISON: Chest 09/25/2021 at 5:31 AM TECHNIQUE: Chest one view and KUB. FINDINGS: Chest: The lungs are hypoexpanded with bilateral diffuse airspace opacities unchanged to previous study 09/25/2021. The heart size is enlarged with prominent vascularity is normal. There is a right jugular central venous catheter with its tip in the mid SVC. Endotracheal tube is 2.7 cm above the sofía. Enteric tube tip is below diaphragm. No gross bony abnormality seen. KUB: There is scattered gas and stool in the colon without distention. No organomegaly. No bony abnormality. XR/XR KUB IMPRESSION: No significant change in support lines and catheters and bilateral diffuse airspace opacities with hypoexpanded lungs. No distention is bowel loops visualized. There is mild gas seen in the transverse colon. There is an enteric tube tip in the stomach.
--- NOTE | ~2021-09-20 | CT_ITS ---
EXAMINATION: CT CHEST, ABDOMEN AND PELVIS WITHOUT CONTRAST CLINICAL INFORMATION: Reason for Exam Abd pain. SBO? Kidney stones? COMPARISON: CT chest, abdomen and pelvis 08/29/2021 TECHNIQUE: Multidetector volumetric imaging was performed from the thoracic inlet through the pubic symphysis without IV contrast. Sagittal and coronal reformatted images were obtained on the technologist's workstation. This CT examination was performed using dose optimization techniques as appropriate, variously including the following: *Automated exposure control *Adjustment of mA and/or kV according to patient size (this includes techniques or standardized protocols for targeted exams where dose is matched to indication/reason for exam; i.e. extremities or head) *Use of iterative reconstruction technique DLP: 1860 mGy-cm FINDINGS: CHEST: Lung: The lungs are clear without focal opacity or nodule. Mediastinum: Some secretions are present in the trachea. The heart is enlarged. Coronary artery calcifications are present. No hilar or mediastinal lymphadenopathy. Pericardium/Pleura: No significant effusion. No pleural mass or thickening. Chest Wall/Axilla: Unremarkable ABDOMEN/PELVIS: Peritoneal Space: No significant free air or free fluid identified. Liver, Gallbladder, Biliary Tree: The liver is normal in size, shape, and attenuation. No focal hepatic lesion or biliary ductal dilatation is present. The gallbladder is unremarkable with no evidence of radiopaque gallstones, gallbladder wall thickening, or obvious pericholecystic inflammatory changes. Pancreas: Unremarkable Spleen: Unremarkable Adrenal Glands: Unremarkable Kidneys and Ureters: The kidneys are normal in size, shape, and attenuation. A scar is present in the upper pole of the left kidney. There is a tiny punctate calcification in the right kidney that was not seen at the time of the prior study (13:44). No hydronephrosis, hydroureter, or other calculi seen. No perinephric stranding. Bladder: Unremarkable Gastrointestinal Tract: The small and large bowel are unremarkable. The appendix is unremarkable. Abdominal Wall: There is diastases of the rectus muscles with some forward bulging. A small periumbilical hernia is seen containing only fat. Lymph Nodes: No retroperitoneal lymphadenopathy. Vascular: The aorta has minimal calcific plaque without aneurysm... The IVC appears unremarkable. PELVIC VISCERA: Prostate and seminal vesicles appear normal. OSSEUS STRUCTURES: Mild degenerative changes are noted in the spine most marked at L5-S1.. No bony destructive lesions are seen. CT/CT abdomen pelvis wo con IMPRESSION: 1. No acute intrathoracic disease. There is no pneumonia 2. Some secretions are present in the trachea. 3. The heart is enlarged and there is coronary artery calcification. 4. No acute intra-abdominal disease. There is no evidence of small bowel obstruction 5. Incidental note made of a scar in the left kidney, punctate nonobstructing calcification right kidney, diastases of the rectus muscles and mild degenerative changes in the spine.
[2021-09-20 16:38] VITALS: BP 132/77; BP 140/90; PULSE 100; PULSE 72; RESP 18; TEMP 37.1; O2SAT 98; O2SAT 99; BMI 40.3
--- NOTE | 2021-09-20 16:51 | ECG_ITS ---
Test Reason : FAILURE TO THRIVE Blood Pressure : / mmHG Vent. Rate : 074 BPM Atrial Rate : 000 BPM P-R Int : 000 ms QRS Dur : 078 ms QT Int : 396 ms P-R-T Axes : 000 029 054 degrees QTc Int : 439 ms Atrial fibrillation Low voltage QRS Cannot rule out Anteroseptal infarct (cited on or before 11-JUN-2011) Abnormal ECG When compared with ECG of 29-AUG-2021 21:27, Premature ventricular complexes are no longer Present Nonspecific T wave abnormality no longer evident in Lateral leads Referred By: Yeison Worley Electronically Signed By:COLETTE BALL MD
--- NOTE | 2021-09-20 17:31 | ED_ITS ---
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 and also constipation. Patient was seen here earlier in the month for similiar symptoms. Patient denes any coughing, fever, dysuria, hematuria, or pleuretic chest pain. Related Data Home Medications Medication Instructions Recorded Confirmed citalopram 40 mg tablet 1 tab PO DAILY@1200 01/08/21 06/29/21 dabigatran etexilate 150 mg 1 cap PO BID@1200,209901/08/21 06/29/21 capsule (Pradaxa) hydroxyzine HCl 10 mg tablet 10 mg PO BEDTIME 01/08/21 06/29/21 levetiracetam 1,000 mg 1 tab PO BID@1200,209901/08/21 06/29/21 tablet melatonin 5 mg tablet 2 tab PO BEDTIME 01/08/21 06/29/21 metoprolol succinate 25 mg 1 tab PO QAM 01/08/21 06/29/21 tablet,extended release 24 hr oxcarbazepine 300 mg tablet 1 tab PO BID@1200,2100 01/08/21 06/29/21 pantoprazole 40 mg 1 tab PO QAM 01/08/21 06/29/21 tablet,delayed release simvastatin 20 mg tablet 1 tab PO QPM 01/08/21 06/29/21 tizanidine 4 mg tablet 0.5 tab PO TID 01/08/21 06/29/21 albuterol sulfate 90 2 puff INHALATION Q4-6H PRN 02/11/21 06/29/21 mcg/actuation aerosol inhaler (ProAir HFA) ascorbic acid (vitamin C) 500 mg PO 05/30/21 06/29/21 500 mg tablet (Vitamin C) ferrous gluconate 324 mg (38 324 mg PO 05/30/21 06/29/21 mg iron) tablet gabapentin 100 mg capsule 200 mg PO TID 05/30/21 06/29/21 polyvinyl alcohol 1.4 % eye 1 drp OPHTHALMIC (EYE) Q4H 05/30/21 06/29/21 drops PRN (Artificial Tears (polyvinyl alcohol)) sennosides 8.6 mg tablet 17.2 mg PO BEDTIME 05/30/21 06/29/21 (Senna Laxative) valsartan 80 mg tablet 80 mg PO 05/30/21 06/29/21 Previous Rx's Medication Instructions Recorded acetaminophen 325 mg tablet 650 mg PO QID PRN #20 tab 01/11/21 (Tylenol) furosemide 20 mg tablet 20 mg PO DAILY #30 tab 01/11/21 lidocaine 4 % topical patch 1 patch TOPICAL DAILY PRN #10 ea 01/11/21 polyethylene glycol 3350 17 gram 17 g PO BID #30 ea 01/11/21 oral powder packet albuterol sulfate 1 amp INHALATION Q6H #0 ml 02/14/21 chair, wheel (Wheel chair) #1 ea 02/14/21 docusate sodium 100 mg capsule 100 mg PO BID 30 Days #60 cap 02/14/21 nebulizers #1 ea 02/14/21 nifedipine 30 mg tablet,extended 30 mg PO DAILY 30 Days #30 tab 02/14/21 release 24 hr prednisone 20 mg tablet 40 mg PO DAILY 3 Days #6 tab 02/14/21 tamsulosin 0.4 mg capsule (Flomax) 0.4 mg PO BEDTIME #14 cap 05/06/21 doxazosin 4 mg tablet 4 mg PO BEDTIME 90 Days #90 tab 05/30/21 finasteride 5 mg tablet 5 mg PO DAILY 90 Days #90 tab 05/30/21 Allergies Allergy/AdvReac Type Severity Reaction Status Date / Time No Known Allergies Allergy Verified 08/29/21 21:04 Review of Systems Verdana 4l Review of Systems: Verdana 4d Chest pain, constipation, Verdana 4d abdominal pain now localized to bladder, chronic leg swelling. Verdana 4d Yes all other systems are reviewed and are negative [facility] Past Medical History Medical History (Updated 09/20/21 @ 18:10 by ISAAC Bangura) Anemia Bradycardia Cardiomyopathy Chronic atrial fibrillation Chronic HFrEF (heart failure with reduced ejection fraction) CVA (cerebral vascular accident) HTN (hypertension) Obesity Raynaud disease Family History Family History Father Emphysema lung Mother Cardiovascular disease Social History Social History Household Members: Caregiver Housing: House Do you presently have visiting nurse or other home services: Yes Unable to assess alcohol history related to: Unknown Alcohol intake: never Patient Tobacco Use Status: Never used Tobacco Second Hand Smoke Exposure: No Advance Directives: Yes Advance Directives on File: Yes Advance Directives Date on File: 11/23/20 service: No Current occupational status: disabled Physical Exam Verdana 4l Vital Signs: Verdana 4d Verdana 4d Vital Signs: Verdana 4d Verdana 4Bd Last Vital Signs Verdana 4d Automotive Service Consultant New 4d Automotive Service Consultant New 4d Temp 98.7 F 09/20/21 16:38 Automotive Service Consultant New 4d Pulse 72 09/20/21 16:38 Automotive Service Consultant New 4d Resp 18 09/20/21 16:38 BP 132/77 09/20/21 16:38 Pulse Ox 99 09/20/21 16:38 BMI result Body Mass Index 40.3 Const: General: cooperative, healthy appearing, comfortable, no acute distress, well developed, alert, awake and Physically active HENMT: Head: Yes normal to inspection, Yes No palpable skull fracture present, Yes normocephalic, Yes atraumatic and No abrasion Eyes: General: appearance normal, both eyes and all related structures Neck: Neck: Yes normal visual inspection, Yes full ROM and Yes no lymphadenopathy Chest: Chest palpation & inspection: normal inspection of the chest and normal palpation of entire chest wall Resp: Effort & Inspection: normal respiratory effort and able to speak in complete sentences Auscultation: clear to auscultation bilaterally Cardio: Jugular venous distension: no JVD Heart sounds: S1 normal heart sound present and S2 normal heart sound present GI: Inspection: Yes normal to inspection and No abdominal wall ecchymosis Palpation (GI): Soft to palpation, not firm, Tenderness to palpation present (GI) in the epigastrum and suprapubicly and no guarding : Other: : normal Skin: General skin exam: no rashes or lesions noted and elasticity normal Neuro: Other: Chronic left hemiparesis from CVA in the past Extrem: Other: Chronic lower extremity swelling with pitting edema. negative for calf tenderness General: Yes normal to inspection and Yes full ROM Psych: Appearance: grossly normal, well kempt and not disheveled Course Course Course Narrative: Patient has similar presentation from last visit where he was diagnosed with constipation. At that time patient had normal troponin and BNP. Due to age and risk factors we will do repeat EKG, troponin, BNP, and imaging. Reevaluation(s) Reevaluation #1: Labs pending. patient urinating in his BED. Waiting for BED. imaging pending. EKG pending. Case signed out UMAIR Patten Time: 18:09 Discharge Plan Discharge Clinical Impression: Chest pain Prescriptions: No Action citalopram 40 mg tablet 1 tab PO DAILY@1200 0RF tizanidine 4 mg tablet 0.5 tab PO TID 0RF oxcarbazepine 300 mg tablet 1 tab PO BID@1200,2100 0RF pantoprazole 40 mg tablet,delayed release (DR/EC) 1 tab PO QAM 0RF simvastatin 20 mg tablet 1 tab PO QPM 0RF metoprolol succinate 25 mg tablet extended release 24 hr 1 tab PO QAM 0RF hydroxyzine HCl 10 mg tablet 10 mg PO BEDTIME 0RF levetiracetam 1,000 mg tablet 1 tab PO BID@1200,2100 0RF melatonin 5 mg tablet 2 tab PO BEDTIME 0RF Pradaxa 150 mg capsule 1 cap PO BID@1200,2100 0RF polyethylene glycol 3350 17 gram Powder In Packet 17 g PO BID Qty: 30 0RF furosemide 20 mg Tablet 20 mg PO DAILY Qty: 30 0RF Protocol: Hold for SBP< HOLD for SBP < : 90 lidocaine 4 % adhesive patch,medicated 1 patch topical DAILY PRN (Reason: pain) Qty: 10 0RF acetaminophen [Tylenol] 325 mg tablet 650 mg PO QID PRN (Reason: pain) Qty: 20 0RF albuterol sulfate [ProAir HFA] 90 mcg/actuation HFA aerosol inhaler 2 puff inhalation Q4-6H PRN (Reason: Wheezing) 0RF nifedipine 30 mg Tablet Extended Release 24hr 30 mg PO DAILY 30 Days Qty: 30 0RF Protocol: Hold for SBP< HOLD for SBP < : 90 prednisone 20 mg Tablet 40 mg PO DAILY 3 Days Qty: 6 0RF docusate sodium 100 mg Capsule 100 mg PO BID 30 Days Qty: 60 0RF (DME) nebulizers Misc See Rx Instructions .ROUTE .MEDSUPPLY Qty: 1 0RF Rx Instructions: As directed (DME) Wheel chair Kit See Rx Instructions .ROUTE .MEDSUPPLY Qty: 1 0RF Rx Instructions: As directed albuterol sulfate 2.5 mg /3 mL (0.083 %) solution for nebulization 1 amp inhalation Q6H Qty: 0 0RF tamsulosin [Flomax] 0.4 mg capsule 0.4 mg PO BEDTIME Qty: 14 0RF ferrous gluconate 324 mg (38 mg iron) tablet 324 mg PO 0RF gabapentin 100 mg capsule 200 mg PO TID 0RF ascorbic acid (vitamin C) [Vitamin C] 500 mg tablet 500 mg PO 0RF valsartan 80 mg tablet 80 mg PO 0RF polyvinyl alcohol [Artificial Tears (polyvin alc)] 1.4 % drops 1 drp ophthalmic (eye) Q4H PRN0RF sennosides [Senna Laxative] 8.6 mg tablet 17.2 mg PO BEDTIME 0RF finasteride 5 mg tablet 5 mg PO DAILY 90 Days Qty: 90 1RF doxazosin 4 mg tablet 4 mg PO BEDTIME 90 Days Qty: 90 1RF
[2021-09-20] MEDS: Acetaminophen 325 MG TABLET 650 MG PO (19:41)
[2021-09-20 20:00] VITALS: BP 127/67; PULSE 63; RESP 21; TEMP 37.1; O2SAT 99
[2021-09-20 20:21] LABS: MANUAL DIFF FLAG NO
[2021-09-20 20:26] LABS: Basophils Percent Auto 0.2 % (0-2); Eosinophils Absolute Auto 0.1 X10*3/uL (0.0-0.4); Eosinophils Percent Auto 0.9 % (0-4); Hematocrit 33.7 % (42.0-52.0); Hemoglobin 11.1 g/dl (14.0-18.0); Imm Gran Abs Auto 0.06 X10*3/uL (0.00-0.03); Imm Gran Pct Auto 0.6 % (0.0-0.4); Lymphocytes Absolute Auto 0.8 X10*3/uL (1.2-4.9); Lymphocytes Percent Auto 8.9 % (20-40); Mean Corpuscular HGB Conc 32.9 g/dl (31.0-36.0); Mean Corpuscular Hemoglobin 32.5 pg (27.0-33.0); Mean Corpuscular Volume 98.5 fL (80.0-98.0); Mean Platelet Volume 9.8 fL (9.4-12.4); Monocytes Absolute Auto 1.1 X10*3/uL (0.1-1.2); Monocytes Percent Auto 11.5 % (2-11); Neutrophils Absolute Auto 7.3 x10*3/uL (2.0-8.3); Neutrophils Percent Auto 77.9 % (45-73); Platelet Count 151 X10*3/uL (160-400); Red Blood Count 3.42 X10*6/uL (4.60-5.80); Red Cell Distribution Width 14.6 % (11.0-16.0); White Blood Count 9.4 X10*3/uL (4.8-10.8)
[2021-09-20 20:30] LABS: INTERNATIONAL NORM RATIO 1.4 (0.9-1.1); Prothrombin Time 15.9 SEC (9.9-13.0)
[2021-09-20 20:33] LABS: Partial Thromboplastin Time 44.6 SEC (24.1-38.0)
[2021-09-20 20:42] LABS: B Type Natriuretic Peptide 479 pg/mL (<100); Troponin-I High Sensitivity 24.2 ng/L (<3.5-35.0)
[2021-09-20 20:44] LABS: Alanine Aminotransferase 28 U/L (0-40); Albumin Level 3.9 g/dL (3.5-5.0); Alkaline Phosphatase 76 U/L (39-117); Anion Gap 10 (12-20); Aspartate Amino Transferase 21 U/L (5-37); Bilirubin Total 0.2 mg/dL (0.0-1.0); Blood Urea Nitrogen 11 mg/dL (9-16); Calcium 8.9 mg/dL (8.4-10.2); Carbon Dioxide 32 mmol/L (22-29); Chloride 98 mmol/L (96-108); Creatinine Clr Calc Pharmacy 113.3; Estimated Glomerular Filt Rate > 60; Glucose Random 104 mg/dL (60-115); Potassium 4.2 mmol/L (3.3-5.1); Sodium 136 mmol/L (135-145); Total Protein 6.4 g/dL (6.5-8.0)
[2021-09-20 21:14] LABS: Appearance Urine CLEAR; Color Urine YELLOW; Glucose Urine UA NEG (NEG); Leukocyte Esterase Urine NEG (NEG); Nitrite Urine NEG (NEG); Specific Gravity - Urine 1.015 (1.005-1.025); Urine Blood NEG (NEG); Urine Ketones 5 MG/DL (NEG); Urine Protein NEG (NEG-TRACE)
--- NOTE | 2021-09-20 21:45 | PC.NURSE ---
Patient's left arm which is contracted is quite red and warm to touch. This was communicated to UMAIR Patten.
[2021-09-20 22:05] VITALS: BP 116/63; PULSE 69; RESP 16; TEMP 36.8; O2SAT 96
[2021-09-20] MEDS: cefTRIAXone sodium 1 GM in 0.9 % Sodium Chloride 50 ML IV (22:44)
--- NOTE | 2021-09-20 22:47 | P.HPHOSP_ITS ---
History of Present Illness Date of Service: 09/20/21 Chief Complaint: Chest pain, abdominal pain, headache Patient speaks Mongolian only, history is obtained with the help of class c driver. This is a 66-year-old male with past medical history of CVA with dense left hemiparesis, hypertension, cardiomyopathy, chronic AFib, heart failure, Raynaud's disease, BPH, who presents to the hospital with multiple complaints. He reports left leg pain, as well as left arm pain. He is also complaining of sharp stabbing left-sided chest pain, he is pointing with a finger to an area on the left of his chest, he is complaining about generalized weakness, headache, no cough, no shortness of breath. He reports generalized abdominal pain, he reports constipation, reports pain in his legs bilaterally but worse on the left. On arrival to the ED patient hemodynamically stable with no significant abnormal vitals Labs are significant for WBC count of 9.4, hemoglobin of 11.1 which is around his baseline, PT of 15.9, INR of 1.4, BNP of 479 which is chronically elevated and has been significantly higher in the past. UA negative. Troponin of 24. EKG showed atrial fibrillation, nonspecific changes with no evidence of ACS Chest CT showed no acute intrathoracic disease, no pneumonia, no fluid overload, no pulmonary congestion. Patient found to have cellulitis of left arm and will be admitted for management Review of Systems Verdana 4l Review of Systems: Yes all other systems are reviewed and Verdana 4d are negative [facility] Medical History Anemia Bradycardia Cardiomyopathy Chronic atrial fibrillation Chronic HFrEF (heart failure with reduced ejection fraction) CVA (cerebral vascular accident) HTN (hypertension) Obesity Raynaud disease Family History Father Emphysema lung Mother Cardiovascular disease Social History Household Members: Caregiver Housing: House Do you presently have visiting nurse or other home services: Yes Unable to assess alcohol history related to: Unknown Alcohol intake: never Patient Tobacco Use Status: Never used Tobacco Second Hand Smoke Exposure: No Use of substances other than those prescribed or required for medical reasons: No Advance Directives: Yes Advance Directives on File: Yes Advance Directives Date on File: 11/23/20 service: No Current occupational status: disabled Meds Allergies Allergy/AdvReac Type Severity Reaction Status Date / Time No Known Allergies Allergy Verified 08/29/21 21:04 Home Medications Medication Instructions Recorded Confirmed Last Taken Type citalopram 40 mg 1 tab PO 01/08/21 09/20/21 Unknown History tablet DAILY@1200 dabigatran 1 cap PO 01/08/21 09/20/21 Unknown History etexilate 150 mg BID@1200,2100 capsule (Pradaxa) hydroxyzine HCl 10 mg PO BEDTIME 01/08/21 09/20/21 Unknown History 10 mg tablet levetiracetam 1 tab PO 01/08/21 09/20/21 Unknown History 1,000 mg tablet BID@1200,2100 melatonin 5 mg 2 tab PO BEDTIME 01/08/21 09/20/21 Unknown History tablet metoprolol 1 tab PO QAM 01/08/21 09/20/21 Unknown History succinate 25 mg tablet,extended release 24 hr oxcarbazepine 300 1 tab PO 01/08/21 09/20/21 Unknown History mg tablet BID@1200,2100 pantoprazole 40 1 tab PO QAM 01/08/21 09/20/21 Unknown History mg tablet,delayed release simvastatin 20 mg 1 tab PO QPM 01/08/21 09/20/21 Unknown History tablet albuterol sulfate 2 puff 02/11/21 09/20/21 Unknown History 90 mcg/actuation INHALATION Q4-6H PRN aerosol inhaler (ProAir HFA) ascorbic acid 500 mg PO DAILY 05/30/21 09/20/21 Unknown History (vitamin C) 500 mg tablet (Vitamin C) ferrous gluconate 324 mg PO DAILY 05/30/21 09/20/21 Unknown History 324 mg (38 mg iron) tablet gabapentin 100 mg 200 mg PO TID 05/30/21 09/20/21 Unknown History capsule sennosides 8.6 mg 17.2 mg PO 05/30/21 09/20/21 Unknown History tablet (Senna BEDTIME Laxative) valsartan 80 mg 80 mg PO BID 05/30/21 09/20/21 Unknown History tablet albuterol sulfate 2 puff PO Q6H 09/20/21 09/20/21 Unknown History 90 mcg/actuation PRN aerosol inhaler (ProAir HFA) furosemide 20 mg 40 mg PO DAILY 09/20/21 09/20/21 Unknown History tablet polyethylene 17 g PO DAILY 09/20/21 09/20/21 Unknown History glycol 3350 17 gram oral powder packet Physical Exam Verdana 4l Vital Signs and Narrative: Verdana 4d Verdana 4d Vital Signs: Verdana 4d Verdana 4Bd Last Vital Signs Verdana 4d Line Appliance Assembler New 4d Line Appliance Assembler New 4d Temp 98.3 F 09/20/21 22:05 Line Appliance Assembler New 4d Pulse 69 09/20/21 22:05 Line Appliance Assembler New 4d Resp 16 09/20/21 22:05 BP 116/63 09/20/21 22:05 Pulse Ox 96 09/20/21 22:05 BMI result Body Mass Index 40.3 Const: Other: Patient is oriented to self and place but also gives confusing and unclear history. He reports that he comes to this hospital all the time and gets admi tted to the 7th floor, gives very vague history. General: cooperative and no acute distress Eyes: General: appearance normal, both eyes and all related structures Resp: Effort & Inspection: normal respiratory effort Auscultation: clear to auscultation bilaterally Cardio: Rate: regular rate GI: Palpation (GI): Soft to palpation Auscultation: normal bowel sounds Skin: General skin exam: no rashes or lesions noted Neuro: Other: Somewhat confused but oriented to self and place. Extrem: General: Yes no pedal edema Results Labs CBC and Chem 7: 09/21/21 04:43 09/21/21 04:43 Labs: Laboratory Results - last 24 hr 09/20/21 09/20/21 09/20/21 20:17 20:17 20:17 MCV 98.5 H MCH 32.5 MCHC 32.9 RDW 14.6 Plt Count 151 L MPV 9.8 Immature Gran % (Auto) 0.6 H Neut % (Auto) 77.9 H Lymph % (Auto) 8.9 L [place] % (Auto) 11.5 H Eos % (Auto) 0.9 Baso % (Auto) 0.2 Lymph # (Auto) 0.8 L [place] # (Auto) 1.1 Eos # (Auto) 0.1 Baso # (Auto) 0.0 Abs Immat Gran (auto) 0.06 H Absolute Neuts (auto) 7.3 Absolute Nucleated RBC 0.000 Nucleated RBC % (auto) 0.0 PT INR APTT Anion Gap 10 L Estim Creat Clear Calc 113.3 Estimated GFR > 60 Random Glucose 104 Calcium 8.9 Total Bilirubin 0.2 AST 21 ALT 28 Alkaline Phosphatase 76 D Troponin I High Sens B-Natriuretic Peptide 479 H Total Protein 6.4 L Albumin 3.9 Urine Color Urine Appearance Urine pH Ur Specific Edwards Urine Protein Urine Glucose (UA) Urine Ketones Urine Blood Urine Nitrite Ur Leukocyte Esterase 09/20/21 09/20/21 09/20/21 20:17 20:17 21:03 MCV MCH MCHC RDW Plt Count MPV Immature Gran % (Auto) Neut % (Auto) Lymph % (Auto) [place] % (Auto) Eos % (Auto) Baso % (Auto) Lymph # (Auto) [place] # (Auto) Eos # (Auto) Baso # (Auto) Abs Immat Gran (auto) Absolute Neuts (auto) Absolute Nucleated RBC Nucleated RBC % (auto) PT 15.9 H INR 1.4 H APTT 44.6 H D Anion Gap Estim Creat Clear Calc Estimated GFR Random Glucose Calcium Total Bilirubin AST ALT Alkaline Phosphatase Troponin I High Sens 24.2 D B-Natriuretic Peptide Total Protein Albumin Urine Color YELLOW Urine Appearance CLEAR Urine pH 6.0 Ur Specific Edwards 1.015 Urine Protein NEG Urine Glucose (UA) NEG Urine Ketones 5 Urine Blood NEG Urine Nitrite NEG Ur Leukocyte Esterase NEG Imaging Radiologist's Impressions: Impressions Abdomen/Pelvis CT 09/20/21 19:07 IMPRESSION: 1. No acute intrathoracic disease. There is no pneumonia 2. Some secretions are present in the trachea. 3. The heart is enlarged and there is coronary artery calcification. 4. No acute intra-abdominal disease. There is no evidence of small bowel obstruction 5. Incidental note made of a scar in the left kidney, punctate nonobstructing calcification right kidney, diastases of the rectus muscles and mild degenerative changes in the spine. Chest CT 09/20/21 19:07 IMPRESSION: 1. No acute intrathoracic disease. There is no pneumonia 2. Some secretions are present in the trachea. 3. The heart is enlarged and there is coronary artery calcification. 4. No acute intra-abdominal disease. There is no evidence of small bowel obstruction 5. Incidental note made of a scar in the left kidney, punctate nonobstructing calcification right kidney, diastases of the rectus muscles and mild degenerative changes in the spine. Assessment and Plan (1) Chest pain: Status: Acute (2) Cellulitis: Status: Acute Plan 66-year-old male with history of CVA with left hemiparesis presents to the hospital with multiple complaints found to have cellulitis # left upper extremity cellulitis - has scratches in place, there is warmth, erythema, tenderness of the left upper extremity - will start him on cefazolin # chest pain - not cardiac in nature - troponin negative - EKG shows no changes suggestive of ACS - monitor # CVA with left hemiparesis - no new findings - will continue pradaxa and statin # Chronic afib - rate controlled - continue metoprolol and pradaxa # CHF - not in exacerbation - will continue home lasix # HTN - stable - continue home antihypertensives DVT ppx: Pradaxa Quality Stroke Does the patient have a stroke diagnosis?: No VTE Prior VTE?: No VTE Risk Level:: Medical - moderate - high VTE Device Contraindication: Treatment Not Indicated VTE Drug Contraindication: N/A - Med Ordered
[2021-09-20 22:53] LABS: Lactic Acid 0.8 mmol/L (0.5-2.0)
[2021-09-20 23:44] LABS: COVID-19 Test Negative (Negative); IDNOW Serial# 9DD0AD1C
[2021-09-21] VITALS (8 sets, daily range): BP systolic 92–146; BP diastolic 44–77; PULSE 54–76; RESP 16–20; TEMP 36.6–37; O2SAT 90–100
--- NOTE | 2021-09-21 | ECG_ITS ---
Test Reason : CHEST PAIN Blood Pressure : / mmHG Vent. Rate : 075 BPM Atrial Rate : 000 BPM P-R Int : 000 ms QRS Dur : 082 ms QT Int : 362 ms P-R-T Axes : 000 026 062 degrees QTc Int : 404 ms Atrial fibrillation with premature ventricular or aberrantly conducted complexes Low voltage QRS Cannot rule out Anteroseptal infarct (cited on or before 11-JUN-2011) Abnormal ECG When compared with ECG of 20-SEP-2021 20:32, No significant change was found Referred By: Amandeep Wyman Electronically Signed By:COLETTE BALL MD
[2021-09-21] MEDS: oxyCODONE HCl Immed Release 5 MG TABLET PO (00:16)
[2021-09-21] MEDS: 0.9 % Sodium Chloride Flush 3 ML SYRINGE IVFLUSH ×3 (00:25→17:07)
[2021-09-21] MEDS: Melatonin 3 MG TABLET 6 MG PO (00:25)
[2021-09-21] MEDS: Morphine Sulfate 4 MG/ML CARTRIDGE IVPUSH (04:33)
[2021-09-21 04:56] LABS: MANUAL DIFF FLAG NO
[2021-09-21 04:57] LABS: Basophils Percent Auto 0.2 % (0-2); Eosinophils Absolute Auto 0.1 X10*3/uL (0.0-0.4); Eosinophils Percent Auto 1.4 % (0-4); Hemoglobin 10.9 g/dl (14.0-18.0); Imm Gran Abs Auto 0.07 X10*3/uL (0.00-0.03); Imm Gran Pct Auto 0.8 % (0.0-0.4); Lymphocytes Absolute Auto 1.3 X10*3/uL (1.2-4.9); Lymphocytes Percent Auto 14.4 % (20-40); Mean Corpuscular Hemoglobin 32.6 pg (27.0-33.0); Mean Corpuscular Volume 98.8 fL (80.0-98.0); Mean Platelet Volume 10.1 fL (9.4-12.4); Monocytes Absolute Auto 1.2 X10*3/uL (0.1-1.2); Monocytes Percent Auto 13.3 % (2-11); Neutrophils Absolute Auto 6.1 x10*3/uL (2.0-8.3); Neutrophils Percent Auto 69.9 % (45-73); Platelet Count 145 X10*3/uL (160-400); Red Blood Count 3.34 X10*6/uL (4.60-5.80); Red Cell Distribution Width 14.7 % (11.0-16.0); White Blood Count 8.7 X10*3/uL (4.8-10.8)
--- NOTE | 2021-09-21 05:13 | PC.NURSE ---
Pt arrived from main ED to ED overflow at approx 0430. Pt had been in main ED for > 13 hours per [facility] system. This RN, Bridget BRIGHT, and Muna UGARTE transferred pt from ED stretcher to clean hospital bed. Noted that pt was still on EMS linens in addition to hospital linens. All linens fully saturated in urine, pt damp to the touch, smell of urine notable from several feet away. These same staff members turned pt to remove excess linens. Noted that incontinence pad was saturated and had begun to dissolve w/ sediment on sheets and pt skin. Pt upper posterior thighs, BL gluteal area, sacrum, and lumbar area of back noted to be damp, pruning, w/ non-blanchable redness. Multiple open areas noted on skin. Skin integrity ROUTE CARRIER unclear. Also noted partially hardened stool in gluteal cleft. Gilma care provided, all linens and gown changed. Pt awake and alert, endorses pain to perineum, sacrum, and perianal area. Provided w/ urinal and able to void independently. Picture obtained for documentation and forward by DEANGELO Gill to nursing supervisor grain and yeast plants Fernanda and to MD Adhikari. doper operator Ky also notified.
[2021-09-21 05:42] LABS: Anion Gap 11 (12-20); Blood Urea Nitrogen 10 mg/dL (9-16); Calcium 8.9 mg/dL (8.4-10.2); Carbon Dioxide 30 mmol/L (22-29); Chloride 96 mmol/L (96-108); Creatinine Clr Calc Pharmacy 123.7; Estimated Glomerular Filt Rate > 60; Glucose Random 88 mg/dL (60-115); Sodium 133 mmol/L (135-145)
[2021-09-21] MEDS: ceFAZolin Sodium/Dextrose,Iso 2 GM/50 ML PIGGYBACK IV (08:35)
[2021-09-21] MEDS: Metoprolol Succinate ER 25 MG TAB.ER.24H PO (08:36)
[2021-09-21] MEDS: Omeprazole 20 MG CAPSULE.DR PO (08:36)
[2021-09-21] MEDS: polyethylene glycoL 3350 17 GM POWD.PACK PO (08:36)
[2021-09-21] MEDS: Gabapentin 100 MG CAPSULE 200 MG PO ×3 (08:36→23:01)
[2021-09-21] MEDS: Ascorbic Acid 500 MG TABLET PO (08:36)
[2021-09-21] MEDS: Furosemide 40 MG TABLET PO (08:37)
[2021-09-21] MEDS: Finasteride 5 MG TABLET PO (08:37)
[2021-09-21] MEDS: Docusate Sodium 100 MG CAPSULE PO ×2 (08:37→22:59)
[2021-09-21] MEDS: NIFEdipine ER 30 MG TAB.ER.24 PO (08:37)
[2021-09-21] MEDS: Acetaminophen 325 MG TABLET 650 MG PO ×2 (10:44→16:27)
[2021-09-21] MEDS: levETIRAcetam 1,000 MG TABLET 1000 MG PO ×2 (10:45→22:59)
[2021-09-21] MEDS: Dabigatran Etexilate Mesylate 150 MG CAPSULE PO ×2 (10:45→23:01)
[2021-09-21] MEDS: Escitalopram Oxalate 20 MG TABLET PO (10:46)
[2021-09-21] MEDS: Valsartan 80 MG TABLET PO ×2 (10:46→23:02)
[2021-09-21] MEDS: Ferrous Sulfate 324 MG TABLET.DR PO (10:46)
[2021-09-21] MEDS: Albuterol Sulfate (0.083%) 2.5 MG/3 ML VIAL.NEB INHALE ×3 (11:49→23:33)
--- NOTE | 2021-09-21 12:02 | MHC.CM.PN ---
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
--- NOTE | 2021-09-21 13:48 | P.PNIM_ITS ---
Subjective Subjective Date of Service: 09/21/21 Interval History: No acute issues overnight Review of Systems Denies N/V/D Denies SOB Denies CP Physical Exam Verdana 4l Vital Signs: Verdana 4d Verdana 4d Vital Signs: Verdana 4d Verdana 4Bd Last Vital Signs Verdana 4d Biomedical Engineering Technologist New 4d Biomedical Engineering Technologist New 4d Temp 98.6 F 09/21/21 06:15 Biomedical Engineering Technologist New 4d Pulse 60 09/21/21 13:44 Biomedical Engineering Technologist New 4d Resp 18 09/21/21 13:44 BP 92/67 09/21/21 13:44 Pulse Ox 99 09/21/21 13:44 BMI result Body Mass Index 40.3 Const: Other: No acute distress Resp: Other: Clear A/P No R/R/W Cardio: Other: -S4 +S1/S2 -S3 M/R/G GI: Other: Soft NT/ND NABS x 4 quads Extrem: Other: LUE contracted and erythematous/warm about elbow Objective Data Active Medications Acetaminophen (Acetaminophen 325 Mg Tablet) 650 mg PO Q6H PRN PRN Reason: Pain, Mild (Pain Scale 1-3) Last Admin: 09/21/21 10:44 Dose: 650 mg Documented by: MOIRA Albuterol Sulfate (Albuterol Sulfate (0.083%) 2.5 Mg/3 Ml Vial.Neb) 2.5 mg INHALE RQ6H [facility] Last Admin: 09/21/21 11:49 Dose: 2.5 mg Documented by: REID Albuterol Sulfate (Albuterol Sulfate 90 Mcg 8 Gm Inhaler) 2 puff INHALE Q6H PRN PRN Reason: wheezing Ascorbic Acid (Ascorbic Acid 500 Mg Tablet) 500 mg PO DAILY [facility] Last Admin: 09/21/21 08:36 Dose: 500 mg Documented by: MOIRA Atorvastatin Calcium (Atorvastatin Calcium 10 Mg Tablet) 10 mg PO BEDTIME [facility] Dabigatran (Dabigatran Etexilate Mesylate 150 Mg Capsule) 150 mg PO BID@1200,2100 [facility] Last Admin: 09/21/21 10:45 Dose: 150 mg Documented by: MOIRA Docusate Sodium (Docusate Sodium 100 Mg Capsule) 100 mg PO BID [facility] Last Admin: 09/21/21 08:37 Dose: 100 mg Documented by: MOIRA Doxazosin Mesylate (Doxazosin Mesylate 2 Mg Tablet) 4 mg PO BEDTIME [facility]; Protocol Escitalopram Oxalate (Escitalopram Oxalate 20 Mg Tablet) 20 mg PO DAILY@1200 [facility] Last Admin: 09/21/21 10:46 Dose: 20 mg Documented by: MOIRA Ferrous Sulfate (Ferrous Sulfate 324 Mg Tablet.) 324 mg PO DAILY [facility] Last Admin: 09/21/21 10:46 Dose: 324 mg Documented by: MOIRA Finasteride (Finasteride 5 Mg Tablet) 5 mg PO DAILY [facility] Last Admin: 09/21/21 08:37 Dose: 5 mg Documented by: MOIRA Furosemide (Furosemide 40 Mg Tablet) 40 mg PO DAILY [facility]; Protocol Last Admin: 09/21/21 08:37 Dose: 40 mg Documented by: MOIRA Gabapentin (Gabapentin 100 Mg Capsule) 200 mg PO TID [facility] Last Admin: 09/21/21 08:36 Dose: 200 mg Documented by: MOIRA Hydroxyzine HCl (Hydroxyzine Hcl 10 Mg Tablet) 10 mg PO BEDTIME [facility] Cefazolin Sodium/Dextrose (Ancef) 2 gm in 50 mls @ 100 mls/hr IV Q8H [facility] Last Infusion: 09/21/21 10:46 Dose: 0 mls/hr Documented by: MOIRA Levetiracetam (Levetiracetam 1,000 Mg Tablet) 1,000 mg PO BID@1200,2100 [facility] Last Admin: 09/21/21 10:45 Dose: 1,000 mg Documented by: MOIRA Lidocaine (Lidocaine 4 % Patch Adh..Patch) 1 patch TRANSDERMA DAILY PRN; Protocol PRN Reason: Pain, Severe (Pain Scale 7-10) Melatonin (Melatonin 3 Mg Tablet) 9 mg PO BEDTIME [facility] Metoprolol Succinate (Metoprolol Succinate Er 25 Mg Tab.Er.24h) 25 mg PO DAILY [facility]; Protocol Last Admin: 09/21/21 08:36 Dose: 25 mg Documented by: MOIRA Morphine Sulfate (Morphine Sulfate 4 Mg/Ml Cartridge) 4 mg IVPUSH Q4H PRN; Protocol PRN Reason: Pain, Severe (Pain Scale 7-10) Last Admin: 09/21/21 04:33 Dose: 4 mg Documented by: SUMMER Nifedipine (Nifedipine Er 30 Mg Tab.Er.24) 30 mg PO DAILY [facility]; Protocol Last Admin: 09/21/21 08:37 Dose: 30 mg Documented by: MOIRA Omeprazole (Omeprazole 20 Mg Capsule.Dr) 20 mg PO DAILY@0630 [facility] Last Admin: 09/21/21 08:36 Dose: 20 mg Documented by: MOIRA Ondansetron HCl (Ondansetron Hcl 4 Mg/2 Ml Vial) 4 mg IVPUSH Q8H PRN PRN Reason: Nausea and Vomiting Polyethylene Glycol (Polyethylene Glycol 3350 17 Gm Powd.Pack) 17 gm PO DAILY [facility] Last Admin: 09/21/21 08:36 Dose: 17 gm Documented by: MOIRA Senna (Sennosides 8.6 Mg Tablet) 17.2 mg PO BEDTIME [facility] Sodium Chloride (0.9 % Sodium Chloride Flush 3 Ml Syringe) 3 ml IVFLUSH QSHIFT [facility] Last Admin: 09/21/21 08:35 Dose: 3 ml Documented by: MOIRA Valsartan (Valsartan 80 Mg Tablet) 80 mg PO BID [facility]; Protocol Last Admin: 09/21/21 10:46 Dose: 80 mg Documented by: MOIRA Labs CBC & Chem 7: 09/21/21 04:43 09/21/21 04:43 Labs: Laboratory Results - last 24 hr 09/20/21 09/20/21 09/20/21 20:17 20:17 20:17 MCV 98.5 H MCH 32.5 MCHC 32.9 RDW 14.6 Plt Count 151 L MPV 9.8 Immature Gran % (Auto) 0.6 H Neut % (Auto) 77.9 H Lymph % (Auto) 8.[address] [facility] % (Auto) 11.5 H Eos % (Auto) 0.9 Baso % (Auto) 0.2 Lymph # (Auto) 0.[address] [facility] # (Auto) 1.1 Eos # (Auto) 0.1 Baso # (Auto) 0.0 Abs Immat Gran (auto) 0.06 H Absolute Neuts (auto) 7.3 Absolute Nucleated RBC 0.000 Nucleated RBC % (auto) 0.0 PT INR APTT Anion Gap 10 L Estim Creat Clear Calc 113.3 Estimated GFR > 60 Random Glucose 104 Lactic Acid Calcium 8.9 Total Bilirubin 0.2 AST 21 ALT 28 Alkaline Phosphatase 76 D Troponin I High Sens B-Natriuretic Peptide 479 H Total Protein 6.4 L Albumin 3.9 Urine Color Urine Appearance Urine pH Ur Specific [place] Urine Protein Urine Glucose (UA) Urine Ketones Urine Blood Urine Nitrite Ur Leukocyte Esterase COVID-19 (GIOVANA) COVID-19 Clin Com 09/20/21 09/20/21 09/20/21 20:17 20:17 21:03 MCV MCH MCHC RDW Plt Count MPV Immature Gran % (Auto) Neut % (Auto) Lymph % (Auto) [facility] % (Auto) Eos % (Auto) Baso % (Auto) Lymph # (Auto) [facility] # (Auto) Eos # (Auto) Baso # (Auto) Abs Immat Gran (auto) Absolute Neuts (auto) Absolute Nucleated RBC Nucleated RBC % (auto) PT 15.9 H INR 1.4 H APTT 44.6 H D Anion Gap Estim Creat Clear Calc Estimated GFR Random Glucose Lactic Acid Calcium Total Bilirubin AST ALT Alkaline Phosphatase Troponin I High Sens 24.2 D B-Natriuretic Peptide Total Protein Albumin Urine Color YELLOW Urine Appearance CLEAR Urine pH 6.0 Ur Specific [place] 1.015 Urine Protein NEG Urine Glucose (UA) NEG Urine Ketones 5 Urine Blood NEG Urine Nitrite NEG Ur Leukocyte Esterase NEG COVID-19 (GIOVANA) COVID-19 Clin Com 09/20/21 09/20/21 09/21/21 22:31 23:26 04:43 MCV 98.8 H MCH 32.6 MCHC 33.0 RDW 14.7 Plt Count 145 L MPV 10.1 Immature Gran % (Auto) 0.8 H Neut % (Auto) 69.9 Lymph % (Auto) 14.[address] [facility] % (Auto) 13.3 H Eos % (Auto) 1.4 Baso % (Auto) 0.2 Lymph # (Auto) 1.3 [facility] # (Auto) 1.2 Eos # (Auto) 0.1 Baso # (Auto) 0.0 Abs Immat Gran (auto) 0.07 H Absolute Neuts (auto) 6.1 Absolute Nucleated RBC 0.000 Nucleated RBC % (auto) 0.0 PT INR APTT Anion Gap Estim Creat Clear Calc Estimated GFR Random Glucose Lactic Acid 0.8 Calcium Total Bilirubin AST ALT Alkaline Phosphatase Troponin I High Sens B-Natriuretic Peptide Total Protein Albumin Urine Color Urine Appearance Urine pH Ur Specific [place] Urine Protein Urine Glucose (UA) Urine Ketones Urine Blood Urine Nitrite Ur Leukocyte Esterase COVID-19 (GIOVANA) Negative COVID-19 Clin Com See Note 09/21/21 04:43 MCV MCH MCHC RDW Plt Count MPV Immature Gran % (Auto) Neut % (Auto) Lymph % (Auto) [facility] % (Auto) Eos % (Auto) Baso % (Auto) Lymph # (Auto) [facility] # (Auto) Eos # (Auto) Baso # (Auto) Abs Immat Gran (auto) Absolute Neuts (auto) Absolute Nucleated RBC Nucleated RBC % (auto) PT INR APTT Anion Gap 11 L Estim Creat Clear Calc 123.7 Estimated GFR > 60 Random Glucose 88 Lactic Acid Calcium 8.9 Total Bilirubin AST ALT Alkaline Phosphatase Troponin I High Sens B-Natriuretic Peptide Total Protein Albumin Urine Color Urine Appearance Urine pH Ur Specific [place] Urine Protein Urine Glucose (UA) Urine Ketones Urine Blood Urine Nitrite Ur Leukocyte Esterase COVID-19 (GIOVANA) COVID-19 Clin Com Assessment and Plan (1) Cellulitis: Status: Acute (2) Chronic atrial fibrillation: Status: Acute (3) Chronic HFrEF (heart failure with reduced ejection fraction): Status: Acute (4) HTN (hypertension): Status: Acute Plan 66-year-old male with history of CVA with left hemiparesis presents to the hospital with multiple complaints found to have cellulitis 1.LUE cellulitis - switch to Vanco...follow response. - D/C on PO doxy when appropriate 2. CVA with left torsten - baseline -continue pradaxa and statin 3. Chronic afib - rate control aequate - continue BB/pradaxa 4.Chronic HFrEF - not in exacerbation - continue lasix as ordered 5. HTN -acceptable control on current therapies -adjust as indicated DVT ppx: Pradaxa Quality Stroke Does the patient have a stroke diagnosis?: No VTE Prior VTE?: No VTE Risk Level:: Medical - moderate - high VTE Device Contraindication: Treatment Not Indicated VTE Drug Contraindication: N/A - Med Ordered
--- NOTE | 2021-09-21 14:14 | PHA.PROG ---
Admission Date/Time: September 20, 2021 22:45 Indication: RADHA Cellulitis Weight in k.202 kg Adjusted body weight in K kg [place] body weight in K.4 kg Obesity Dosing Indication % IBW: 175% Serum Creatinine - Last 168 Hours 09/20/21 09/21/21 20:17 04:43 Creatinine 0.83 0.76 Estimated CrCl and GFR - Last 168 Hours 09/20/21 09/21/21 20:17 04:43 Estim Creat Clear Calc 113.3 123.7 Estimated GFR > 60 > 60 Vancomycin Loading Dose: 2000 mg Current Vancomycin Dosing Regimen: 1000 mg Q12H Date and Time for next Vancomycin Level to be drawn: 09/23 @ 0100 Pharmacist Comments on Vancomycin Plan: Loading dose 2000 mg (16mg/kg) to be given 09/21 @ 1500 [place] dose 1000 mg (8mg/kg) Q12H to be given 09/22 @ 0300. Expected AUC 445 with a trough of 12.2 Trough to be drawn prior to 4th dose on 09/23 @ 0100 Pharmacy will monitor renal function daily Arlette Correa PharmD Vancomycin dosing will take advantage of [employer] as a clinical decision support tool that uses Bayesian modeling to calculate individual patient's pharmacokinetic parameters and forecast the patient's drug concentration time course with the target goal AUC 24 range of 400 - 600 mg/L/hr.
[2021-09-21] MEDS: Melatonin 3 MG TABLET 9 MG PO (22:59)
[2021-09-21] MEDS: hydrOXYzine HCL 10 MG TABLET PO (22:59)
[2021-09-21] MEDS: Sennosides 8.6 MG TABLET 17.2 MG PO (23:00)
[2021-09-21] MEDS: Atorvastatin Calcium 10 MG TABLET PO (23:00)
[2021-09-21] MEDS: Doxazosin Mesylate 2 MG TABLET 4 MG PO (23:00)
[2021-09-22] VITALS (8 sets, daily range): BP systolic 107–125; BP diastolic 50–69; PULSE 53–76; RESP 15–20; TEMP 36.2–37.1; O2SAT 93–100
[2021-09-22] MEDS: 0.9 % Sodium Chloride Flush 3 ML SYRINGE IVFLUSH ×2 (03:00→09:22)
[2021-09-22] MEDS: vancomycin HCL 1,000 MG in 0.9 % Sodium Chloride 250 ML 270 MG IV ×2 (03:44→15:35)
[2021-09-22 07:02] LABS: Creatinine Clr Calc Pharmacy 114.7; Estimated Glomerular Filt Rate > 60
--- NOTE | 2021-09-22 08:05 | PHA.PROG ---
Admission Date/Time: September 20, 2021 22:45 Indication: RADHA Cellulitis Weight in k.202 kg Adjusted body weight in K kg [place] body weight in K.4 kg Obesity Dosing Indication % IBW: 175% Serum Creatinine - Last 168 Hours 09/20/21 09/21/21 09/22/21 20:17 04:43 06:30 Creatinine 0.83 0.76 0.82 Estimated CrCl and GFR - Last 168 Hours 09/20/21 09/21/21 09/22/21 20:17 04:43 06:30 Estim Creat Clear Calc 113.3 123.7 114.7 Estimated GFR > 60 > 60 > 60 Vancomycin Loading Dose: 2000 mg Current Vancomycin Dosing Regimen: 1000 mg Q12H Date and Time for next Vancomycin Level to be drawn: 09/25 @ 0100 Pharmacist Comments on Vancomycin Plan: Renal function is stable No adjustments to be made. Trough will be drawn overnight tonight (09/23 @ 0100), pharmacy will review in the AM. Pharmacy will continue to monitor renal function daily. Arlette Correa PharmD Vancomycin dosing will take advantage of [email or web address] as a clinical decision support tool that uses Bayesian modeling to calculate individual patient's pharmacokinetic parameters and forecast the patient's drug concentration time course with the target goal AUC 24 range of 400 - 600 mg/L/hr.
[2021-09-22] MEDS: Docusate Sodium 100 MG CAPSULE PO ×2 (09:21→21:37)
[2021-09-22] MEDS: polyethylene glycoL 3350 17 GM POWD.PACK PO (09:21)
[2021-09-22] MEDS: Furosemide 40 MG TABLET PO (09:21)
[2021-09-22] MEDS: Finasteride 5 MG TABLET PO (09:21)
[2021-09-22] MEDS: Omeprazole 20 MG CAPSULE.DR PO (09:21)
[2021-09-22] MEDS: Ferrous Sulfate 324 MG TABLET.DR PO (09:21)
[2021-09-22] MEDS: NIFEdipine ER 30 MG TAB.ER.24 PO (09:21)
[2021-09-22] MEDS: Metoprolol Succinate ER 25 MG TAB.ER.24H PO (09:21)
[2021-09-22] MEDS: Valsartan 80 MG TABLET PO ×2 (09:21→21:36)
[2021-09-22] MEDS: Gabapentin 100 MG CAPSULE 200 MG PO ×3 (09:21→21:37)
[2021-09-22] MEDS: Ascorbic Acid 500 MG TABLET PO (09:21)
--- NOTE | 2021-09-22 10:57 | PC.NURSE ---
Pt A&Ox3, LCA, cellulitis noted to L arm, L sided weakness at baseline from P<HX of CVA. Medicated as per MAR orders, no complaints of pain at this time. Call catalan within reach. Will continue to monitor.
[2021-09-22] MEDS: Albuterol Sulfate (0.083%) 2.5 MG/3 ML VIAL.NEB INHALE ×2 (12:19→16:54)
[2021-09-22] MEDS: levETIRAcetam 1,000 MG TABLET 1000 MG PO ×2 (12:23→21:37)
[2021-09-22] MEDS: Dabigatran Etexilate Mesylate 150 MG CAPSULE PO ×2 (12:23→21:36)
[2021-09-22] MEDS: Escitalopram Oxalate 20 MG TABLET PO (12:23)
--- NOTE | 2021-09-22 14:55 | P.PNIM_ITS ---
Subjective Subjective Date of Service: 09/22/21 Interval History: No acute issues overnight Review of Systems Denies N/V/D Denies SOB Denies CP Physical Exam Verdana 4l Vital Signs: Verdana 4d Verdana 4d Vital Signs: Verdana 4d Verdana 4Bd Last Vital Signs Verdana 4d Parish Nurse New 4d Parish Nurse New 4d Temp 97.8 F 09/22/21 09:22 Parish Nurse New 4d Pulse 65 09/22/21 12:19 Parish Nurse New 4d Resp 20 09/22/21 12:19 BP 107/50 L 09/22/21 09:22 Pulse Ox 100 09/22/21 09:22 BMI result Body Mass Index 40.3 Const: Other: No acute distress Resp: Other: Clear A/P No R/R/W Cardio: Other: -S4 +S1/S2 -S3 M/R/G GI: Other: Soft NT/ND NABS x 4 quads Extrem: Other: LUE contracted and erythematous/warm about elbow Objective Data Active Medications Acetaminophen (Acetaminophen 325 Mg Tablet) 650 mg PO Q6H PRN PRN Reason: Pain, Mild (Pain Scale 1-3) Last Admin: 09/21/21 16:27 Dose: 650 mg Documented by: KELLY Albuterol Sulfate (Albuterol Sulfate (0.083%) 2.5 Mg/3 Ml Vial.Neb) 2.5 mg INHALE RQ6H [facility] [place] Last Admin: 09/22/21 12:19 Dose: 2.5 mg Documented by: REID Albuterol Sulfate (Albuterol Sulfate 90 Mcg 8 Gm Inhaler) 2 puff INHALE Q6H PRN PRN Reason: wheezing Ascorbic Acid (Ascorbic Acid 500 Mg Tablet) 500 mg PO DAILY [facility] [place] Last Admin: 09/22/21 09:21 Dose: 500 mg Documented by: STEPHENIE Atorvastatin Calcium (Atorvastatin Calcium 10 Mg Tablet) 10 mg PO BEDTIME [facility] [place] Last Admin: 09/21/21 23:00 Dose: 10 mg Documented by: NA Dabigatran (Dabigatran Etexilate Mesylate 150 Mg Capsule) 150 mg PO BID@1200,21 00 [facility] [place] Last Admin: 09/22/21 12:23 Dose: 150 mg Documented by: STEPHENIE Docusate Sodium (Docusate Sodium 100 Mg Capsule) 100 mg PO BID [facility] [place] Last Admin: 09/22/21 09:21 Dose: 100 mg Documented by: STEPHENIE Doxazosin Mesylate (Doxazosin Mesylate 2 Mg Tablet) 4 mg PO BEDTIME [facility] [place]; Protocol Last Admin: 09/21/21 23:00 Dose: 4 mg Documented by: NA Escitalopram Oxalate (Escitalopram Oxalate 20 Mg Tablet) 20 mg PO DAILY@1200 [facility] [place] Last Admin: 09/22/21 12:23 Dose: 20 mg Documented by: STEPHENIE Ferrous Sulfate (Ferrous Sulfate 324 Mg Tablet.Dr) 324 mg PO DAILY [facility] [place] Last Admin: 09/22/21 09:21 Dose: 324 mg Documented by: STEPHENIE Finasteride (Finasteride 5 Mg Tablet) 5 mg PO DAILY [facility] [place] Last Admin: 09/22/21 09:21 Dose: 5 mg Documented by: STEPHENIE Furosemide (Furosemide 40 Mg Tablet) 40 mg PO DAILY [facility] [place]; Protocol Last Admin: 09/22/21 09:21 Dose: 40 mg Documented by: STEPHENIE Gabapentin (Gabapentin 100 Mg Capsule) 200 mg PO TID [facility] [place] Last Admin: 09/22/21 09:21 Dose: 200 mg Documented by: STEPHENIE Hydroxyzine HCl (Hydroxyzine Hcl 10 Mg Tablet) 10 mg PO BEDTIME [facility] [place] Last Admin: 09/21/21 22:59 Dose: 10 mg Documented by: NA Vancomycin HCl 1,000 mg/ (Sodium Chloride) 270 mls @ 270 mls/hr IV Q12H [facility] [place] Last Infusion: 09/22/21 04:44 Dose: 0 mls/hr Documented by: NA Levetiracetam (Levetiracetam 1,000 Mg Tablet) 1,000 mg PO BID@1200,2100 [facility] [place] Last Admin: 09/22/21 12:23 Dose: 1,000 mg Documented by: STEPHENIE Lidocaine (Lidocaine 4 % Patch Adh..Patch) 1 patch TRANSDERMA DAILY PRN; Protocol PRN Reason: Pain, Severe (Pain Scale 7-10) Melatonin (Melatonin 3 Mg Tablet) 9 mg PO BEDTIME [facility] [place] Last Admin: 09/21/21 22:59 Dose: 9 mg Documented by: NA Metoprolol Succinate (Metoprolol Succinate Er 25 Mg Tab.Er.24h) 25 mg PO DAILY [facility] [place]; Protocol Last Admin: 09/22/21 09:21 Dose: 25 mg Documented by: STEPHENIE Morphine Sulfate (Morphine Sulfate 4 Mg/Ml Cartridge) 4 mg IVPUSH Q4H PRN; Protocol PRN Reason: Pain, Severe (Pain Scale 7-10) Last Admin: 09/21/21 04:33 Dose: 4 mg Documented by: SUMMER Nifedipine (Nifedipine Er 30 Mg Tab.Er.24) 30 mg PO DAILY [facility] [place]; Protocol Last Admin: 09/22/21 09:21 Dose: 30 mg Documented by: STEPHENIE Omeprazole (Omeprazole 20 Mg Capsule.Dr) 20 mg PO DAILY@0630 [facility] [place] Last Admin: 09/22/21 09:21 Dose: 20 mg Documented by: STEPHENIE Ondansetron HCl (Ondansetron Hcl 4 Mg/2 Ml Vial) 4 mg IVPUSH Q8H PRN PRN Reason: Nausea and Vomiting Pharmacy Consult (Consult Rx Vancomycin Dosing) 1 each MISCELLANE DAILY PRN PRN Reason: Consult order Polyethylene Glycol (Polyethylene Glycol 3350 17 Gm Powd.Pack) 17 gm PO DAILY [facility] [place] Last Admin: 09/22/21 09:21 Dose: 17 gm Documented by: STEPHENIE Senna (Sennosides 8.6 Mg Tablet) 17.2 mg PO BEDTIME [facility] [place] Last Admin: 09/21/21 23:00 Dose: 17.2 mg Documented by: NA Sodium Chloride (0.9 % Sodium Chloride Flush 3 Ml Syringe) 3 ml IVFLUSH QSHIFT [facility] [place] Last Admin: 09/22/21 09:22 Dose: 3 ml Documented by: STEPHENIE Valsartan (Valsartan 80 Mg Tablet) 80 mg PO BID [facility] [place]; Protocol Last Admin: 09/22/21 09:21 Dose: 80 mg Documented by: STEPHENIE Labs CBC & Chem 7: 09/21/21 04:43 09/22/21 06:30 Labs: Laboratory Results - last 24 hr 09/22/21 06:30 Estim Creat Clear Calc 114.7 Estimated GFR > 60 Microbiology Microbiology Results: Microbiology 09/20/21 22:37 Blood Culture - Preliminary Blood - Venous No growth after 24 hours. 09/20/21 22:31 Blood Culture - Preliminary Blood - Venous No growth after 24 hours. Assessment and Plan (1) Cellulitis: Status: Acute (2) Chronic atrial fibrillation: Status: Acute (3) Hemiparesis, left: Status: Acute Plan 66-year-old male with history of CVA with left hemiparesis presents to the hospital with multiple complaints found to have cellulitis. AArm improved with Vanco 1.LUE cellulitis -Vanco...follow response. - D/C on PO doxy when appropriate 2. CVA with left torsten - baseline -continue pradaxa and statin 3. Chronic afib - rate control aequate - continue BB/pradaxa 4.Chronic HFrEF - not in exacerbation - continue lasix as ordered 5. HTN -acceptable control on current therapies -adjust as indicated DVT ppx: Pradaxa . PT consult am Quality Stroke Does the patient have a stroke diagnosis?: No VTE Prior VTE?: No VTE Risk Level:: Medical - moderate - high VTE Device Contraindication: Treatment Not Indicated VTE Drug Contraindication: N/A - Med Ordered
--- NOTE | 2021-09-22 17:11 | PC.NURSE ---
Pt refusing to get MD RADHA made aware, inc care provided. Repositioned to side at this time. 2 small wounds noted to bilateral buttocks. Pt made aware of need to reposition to prevent worsening wounds.
[2021-09-22] MEDS: Morphine Sulfate 4 MG/ML CARTRIDGE IVPUSH (19:33)
[2021-09-22] MEDS: Melatonin 3 MG TABLET 9 MG PO (21:36)
[2021-09-22] MEDS: Doxazosin Mesylate 2 MG TABLET 4 MG PO (21:37)
[2021-09-22] MEDS: Atorvastatin Calcium 10 MG TABLET PO (21:38)
[2021-09-22] MEDS: Sennosides 8.6 MG TABLET 17.2 MG PO (21:38)
[2021-09-22] MEDS: hydrOXYzine HCL 10 MG TABLET PO (21:38)
[2021-09-23] VITALS (9 sets, daily range): BP systolic 101–176; BP diastolic 51–91; PULSE 53–122; RESP 16–20; TEMP 36.3–37.3; O2SAT 92–98
[2021-09-23] MEDS: Albuterol Sulfate (0.083%) 2.5 MG/3 ML VIAL.NEB INHALE ×3 (00:05→17:48)
[2021-09-23 01:54] LABS: Vancomycin Trough 12.7 mcg/mL (10.0-20.0)
[2021-09-23] MEDS: vancomycin HCL 1,000 MG in 0.9 % Sodium Chloride 250 ML 270 MG IV ×2 (03:40→15:27)
[2021-09-23] MEDS: Morphine Sulfate 4 MG/ML CARTRIDGE IVPUSH ×3 (05:49→23:14)
[2021-09-23] MEDS: Omeprazole 20 MG CAPSULE.DR PO (05:50)
[2021-09-23 06:51] LABS: Creatinine Clr Calc Pharmacy 138.3; Estimated Glomerular Filt Rate > 60
[2021-09-23] MEDS: Finasteride 5 MG TABLET PO (08:31)
[2021-09-23] MEDS: polyethylene glycoL 3350 17 GM POWD.PACK PO (08:31)
[2021-09-23] MEDS: 0.9 % Sodium Chloride Flush 3 ML SYRINGE IVFLUSH ×3 (08:31→20:33)
[2021-09-23] MEDS: Ascorbic Acid 500 MG TABLET PO (08:31)
[2021-09-23] MEDS: Valsartan 80 MG TABLET PO ×2 (08:31→20:32)
[2021-09-23] MEDS: Docusate Sodium 100 MG CAPSULE PO ×2 (08:31→20:32)
[2021-09-23] MEDS: Ferrous Sulfate 324 MG TABLET.DR PO (08:32)
[2021-09-23] MEDS: Furosemide 40 MG TABLET PO (08:32)
[2021-09-23] MEDS: Metoprolol Succinate ER 25 MG TAB.ER.24H PO (08:32)
[2021-09-23] MEDS: NIFEdipine ER 30 MG TAB.ER.24 PO (08:32)
[2021-09-23] MEDS: Gabapentin 100 MG CAPSULE 200 MG PO ×3 (08:32→20:31)
[2021-09-23] MEDS: Acetaminophen 325 MG TABLET 650 MG PO (08:43)
--- NOTE | 2021-09-23 09:15 | HE.PHANOTE ---
RE VANCOMYCIN Trough was 12.7; continue 1000mg q12; if SCR drops again, consider increasing dose to 1250. next trough due 09/24 @1300
--- NOTE | 2021-09-23 10:15 | P.PNIM_ITS ---
Subjective Subjective Date of Service: 09/23/21 Interval History: Mild abd pain improved with BM. No acute issues overnight Review of Systems Denies N/V/D Denies SOB Denies CP Physical Exam Verdana 4l Vital Signs: Verdana 4d Verdana 4d Vital Signs: Verdana 4d Verdana 4Bd Last Vital Signs Verdana 4d Senior Accounts Payable Clerk New 4d Senior Accounts Payable Clerk New 4d Temp 97.9 F 09/23/21 07:55 Senior Accounts Payable Clerk New 4d Pulse 68 09/23/21 07:55 Senior Accounts Payable Clerk New 4d Resp 20 09/23/21 07:55 BP 108/51 L 09/23/21 07:55 Pulse Ox 95 09/23/21 07:55 BMI result Body Mass Index 40.3 Const: Other: No acute distress Resp: Other: Clear A/P No R/R/W Cardio: Other: -S4 +S1/S2 -S3 M/R/G GI: Other: Soft NT/ND NABS x 4 quads Extrem: Other: LUE contracted and erythematous/warm about elbow Objective Data Active Medications Acetaminophen (Acetaminophen 325 Mg Tablet) 650 mg PO Q6H PRN PRN Reason: Pain, Mild (Pain Scale 1-3) Last Admin: 09/23/21 08:43 Dose: 650 mg Documented by: JOSE ALEJANDRO Albuterol Sulfate (Albuterol Sulfate (0.083%) 2.5 Mg/3 Ml Vial.Neb) 2.5 mg INHALE RQ6H [facility] Last Admin: 09/23/21 05:47 Dose: 2.5 mg Documented by: VERÓNICA Albuterol Sulfate (Albuterol Sulfate 90 Mcg 8 Gm Inhaler) 2 puff INHALE Q6H PRN PRN Reason: wheezing Ascorbic Acid (Ascorbic Acid 500 Mg Tablet) 500 mg PO DAILY [facility] Last Admin: 09/23/21 08:31 Dose: 500 mg Documented by: JOSE ALEJANDRO Atorvastatin Calcium (Atorvastatin Calcium 10 Mg Tablet) 10 mg PO BEDTIME [facility] Last Admin: 09/22/21 21:38 Dose: 10 mg Documented by: LESLIE Dabigatran (Dabigatran Etexilate Mesylate 150 Mg Capsule) 150 mg PO BID@1200,2100 [facility] Last Admin: 09/22/21 21:36 Dose: 150 mg Documented by: LESLIE Docusate Sodium (Docusate Sodium 100 Mg Capsule) 100 mg PO BID [facility] Last Admin: 09/23/21 08:31 Dose: 100 mg Documented by: COTEMA Doxazosin Mesylate (Doxazosin Mesylate 2 Mg Tablet) 4 mg PO BEDTIME [facility]; Protocol Last Admin: 09/22/21 21:37 Dose: 4 mg Documented by: LESLIE Escitalopram Oxalate (Escitalopram Oxalate 20 Mg Tablet) 20 mg PO DAILY@1200 [facility] Last Admin: 09/22/21 12:23 Dose: 20 mg Documented by: STEPHENIE Ferrous Sulfate (Ferrous Sulfate 324 Mg Tablet.) 324 mg PO DAILY [facility] Last Admin: 09/23/21 08:32 Dose: 324 mg Documented by: COTEMA Finasteride (Finasteride 5 Mg Tablet) 5 mg PO DAILY [facility] Last Admin: 09/23/21 08:31 Dose: 5 mg Documented by: GHULAMEMA Furosemide (Furosemide 40 Mg Tablet) 40 mg PO DAILY [facility]; Protocol Last Admin: 09/23/21 08:32 Dose: 40 mg Documented by: COTEMA Gabapentin (Gabapentin 100 Mg Capsule) 200 mg PO TID [facility] Last Admin: 09/23/21 08:32 Dose: 200 mg Documented by: JOSE ALEJANDRO Hydroxyzine HCl (Hydroxyzine Hcl 10 Mg Tablet) 10 mg PO BEDTIME [facility] Last Admin: 09/22/21 21:38 Dose: 10 mg Documented by: LESLIE Vancomycin HCl 1,000 mg/ (Sodium Chloride) 270 mls @ 270 mls/hr IV Q12H [facility] Last Infusion: 09/23/21 05:15 Dose: 0 mls/hr Documented by: REX Levetiracetam (Levetiracetam 1,000 Mg Tablet) 1,000 mg PO BID@1200,2100 [facility] Last Admin: 09/22/21 21:37 Dose: 1,000 mg Documented by: LESLIE Lidocaine (Lidocaine 4 % Patch Adh..Patch) 1 patch TRANSDERMA DAILY PRN; Protocol PRN Reason: Pain, Severe (Pain Scale 7-10) Melatonin (Melatonin 3 Mg Tablet) 9 mg PO BEDTIME [facility] Last Admin: 09/22/21 21:36 Dose: 9 mg Documented by: LESLIE Metoprolol Succinate (Metoprolol Succinate Er 25 Mg Tab.Er.24h) 25 mg PO DAILY [facility]; Protocol Last Admin: 09/23/21 08:32 Dose: 25 mg Documented by: JOSE ALEJANDRO Morphine Sulfate (Morphine Sulfate 4 Mg/Ml Cartridge) 4 mg IVPUSH Q4H PRN; Protocol PRN Reason: Pain, Severe (Pain Scale 7-10) Last Admin: 09/23/21 05:49 Dose: 4 mg Documented by: RXE Nifedipine (Nifedipine Er 30 Mg Tab.Er.24) 30 mg PO DAILY [facility]; Protocol Last Admin: 09/23/21 08:32 Dose: 30 mg Documented by: JOSE ALEJANDRO Omeprazole (Omeprazole 20 Mg Capsule.Dr) 20 mg PO DAILY@0630 [facility] Last Admin: 09/23/21 05:50 Dose: 20 mg Documented by: REX Ondansetron HCl (Ondansetron Hcl 4 Mg/2 Ml Vial) 4 mg IVPUSH Q8H PRN PRN Reason: Nausea and Vomiting Pharmacy Consult (Consult Rx Vancomycin Dosing) 1 each MISCELLANE DAILY PRN PRN Reason: Consult order Polyethylene Glycol (Polyethylene Glycol 3350 17 Gm Powd.Pack) 17 gm PO DAILY [facility] Last Admin: 09/23/21 08:31 Dose: 17 gm Documented by: JOSE ALEJANDRO Senna (Sennosides 8.6 Mg Tablet) 17.2 mg PO BEDTIME [facility] Last Admin: 09/22/21 21:38 Dose: 17.2 mg Documented by: DIOGO-MARCGeni Sodium Chloride (0.9 % Sodium Chloride Flush 3 Ml Syringe) 3 ml IVFLUSH QSHIFT [facility] Last Admin: 09/23/21 08:31 Dose: 3 ml Documented by: JOSE ALEJANDRO Valsartan (Valsartan 80 Mg Tablet) 80 mg PO BID [facility]; Protocol Last Admin: 09/23/21 08:31 Dose: 80 mg Documented by: JOSE ALEJANDRO Labs CBC & Chem 7: 09/21/21 04:43 09/23/21 05:54 Labs: Laboratory Results - last 24 hr 09/23/21 09/23/21 01:14 05:54 Estim Creat Clear Calc 138.3 Estimated GFR > 60 Vancomycin Trough 12.7 Microbiology Microbiology Results: Microbiology 09/20/21 22:37 Blood Culture - Preliminary Blood - Venous No growth after 48 hours. 09/20/21 22:31 Blood Culture - Preliminary Blood - Venous No growth after 48 hours. Assessment and Plan (1) Cellulitis: Status: Acute (2) Chronic atrial fibrillation: Status: Acute (3) Chronic HFrEF (heart failure with reduced ejection fraction): Status: Acute (4) HTN (hypertension): Status: Acute Plan 66-year-old male with history of CVA with left hemiparesis presents to the hospital with multiple complaints found to have cellulitis. AArm improved with Vanco 1.LUE cellulitis -Vanco...improving. Query D/C in am - D/C on PO doxy when appropriate 2. CVA with left torsten - baseline -continue pradaxa and statin 3. Chronic afib - rate control aequate - continue BB/pradaxa 4.Chronic HFrEF - not in exacerbation - continue lasix as ordered 5. HTN -acceptable control on current therapies -adjust as indicated DVT ppx: Pradaxa . Quality Stroke Does the patient have a stroke diagnosis?: No VTE Prior VTE?: No VTE Risk Level:: Medical - moderate - high VTE Device Contraindication: Treatment Not Indicated VTE Drug Contraindication: N/A - Med Ordered
[2021-09-23] MEDS: Escitalopram Oxalate 20 MG TABLET PO (12:07)
[2021-09-23] MEDS: levETIRAcetam 1,000 MG TABLET 1000 MG PO ×2 (12:07→20:31)
[2021-09-23] MEDS: Dabigatran Etexilate Mesylate 150 MG CAPSULE PO ×2 (12:07→20:32)
--- NOTE | 2021-09-23 14:10 | MHC.CM.PN ---
PER DISCUSSION WITH HOSPITALIST, PLAN IS DISCHARGE HOME Saturday09/25/2021. [facility]. PATIENT ALSO AWARE OF PLAN. CAHRLES UPDATED IN [facility]
[2021-09-23] MEDS: Atorvastatin Calcium 10 MG TABLET PO (20:31)
[2021-09-23] MEDS: Melatonin 3 MG TABLET 9 MG PO (20:32)
[2021-09-23] MEDS: Sennosides 8.6 MG TABLET 17.2 MG PO (20:33)
[2021-09-23] MEDS: hydrOXYzine HCL 10 MG TABLET PO (20:33)
[2021-09-23] MEDS: Doxazosin Mesylate 2 MG TABLET 4 MG PO (20:33)
[2021-09-24] VITALS (30 sets, daily range): BP systolic 80–138; BP diastolic 43–90; PULSE 62–102; RESP 18; TEMP 32–36.2; O2SAT 89–96
--- NOTE | 2021-09-24 | ECG_ITS ---
Test Reason : CP Blood Pressure : / mmHG Vent. Rate : 088 BPM Atrial Rate : 000 BPM P-R Int : 000 ms QRS Dur : 098 ms QT Int : 396 ms P-R-T Axes : 000 026 -11 degrees QTc Int : 479 ms Atrial fibrillation Low voltage QRS Cannot rule out Anterior infarct (cited on or before 11-JUN-2011) Abnormal ECG When compared with ECG of 24-SEP-2021 03:22, due to artifact, cannot compare Referred By: Kaden Urena Electronically Signed By:PRUDENCE CULVER
--- NOTE | 2021-09-24 | ECG_ITS ---
Test Reason : UNRESPONSIVE Blood Pressure : / mmHG Vent. Rate : 107 BPM Atrial Rate : 000 BPM P-R Int : 000 ms QRS Dur : 094 ms QT Int : 288 ms P-R-T Axes : 000 051 066 degrees QTc Int : 384 ms Poor data quality Baseline wander Atrial fibrillation with rapid ventricular response with premature ventricular or aberrantly conducted complexes Low voltage QRS Cannot rule out Anterior infarct (cited on or before 11-JUN-2011) Abnormal ECG When compared with ECG of 21-SEP-2021 10:04, No significant changes seen Referred By: Kaden Urena Electronically Signed By:COLETTE BALL MD
[2021-09-24] MEDS: Albuterol Sulfate (0.083%) 2.5 MG/3 ML VIAL.NEB INHALE ×5 (01:15→23:41)
[2021-09-24] MEDS: ondansetron HCL 4 MG/2 ML VIAL IVPUSH (02:15)
[2021-09-24 03:00] LABS: Glucose, Whole Blood 191 mg/dL (60-115)
--- NOTE | 2021-09-24 03:22 | PM.EVENT ---
Event Note Date of Service: 09/24/21 Event Note: nurse lelagd me that pt is having abdominal pain with abdominal distension and nausea. pt was sent to the ED to get KUB, while getting the xray done, he had a large episode of vomiting went into cardiac arrest. pt was in PEA. he received 3 rounds of Epinephrine, one of bicarb and then converted into V.fib. pt given 150 of Amio. ROSC was achieved 03:07 am pt will be transferred to ICU
[2021-09-24 03:28] LABS: Glucose, Whole Blood 261 mg/dL (60-115)
[2021-09-24 03:42] LABS: VBG Base Excess 0.9 mmol/L; VBG HCO3 30 mmol/L (22-26); VBG pCO2 74 mmHg; VBG pH 7.21 (7.32-7.43); VBG pO2 197 mmHg
[2021-09-24 03:47] LABS: Basophils Percent Auto 0.2 % (0-2); Eosinophils Absolute Auto 0.2 X10*3/uL (0.0-0.4); Eosinophils Percent Auto 0.8 % (0-4); Hemoglobin 10.8 g/dl (14.0-18.0); Imm Gran Abs Auto 0.67 X10*3/uL (0.00-0.03); Imm Gran Pct Auto 3.3 % (0.0-0.4); Lymphocytes Absolute Auto 3.2 X10*3/uL (1.2-4.9); Lymphocytes Percent Auto 15.4 % (20-40); MANUAL DIFF FLAG NO; Mean Corpuscular HGB Conc 31.8 g/dl (31.0-36.0); Mean Corpuscular Hemoglobin 32.1 pg (27.0-33.0); Mean Corpuscular Volume 101.2 fL (80.0-98.0); Mean Platelet Volume 10.3 fL (9.4-12.4); Monocytes Absolute Auto 1.2 X10*3/uL (0.1-1.2); Monocytes Percent Auto 5.9 % (2-11); Neutrophils Absolute Auto 15.3 x10*3/uL (2.0-8.3); Neutrophils Percent Auto 74.4 % (45-73); Platelet Count 182 X10*3/uL (160-400); Red Blood Count 3.36 X10*6/uL (4.60-5.80); Red Cell Distribution Width 14.5 % (11.0-16.0); White Blood Count 20.6 X10*3/uL (4.8-10.8)
[2021-09-24 03:48] LABS: Venous Blood Gas Refer to POC result
[2021-09-24 04:09] LABS: Alanine Aminotransferase 38 U/L (0-40); Albumin Level 3.9 g/dL (3.5-5.0); Alkaline Phosphatase 88 U/L (39-117); Anion Gap 21 (12-20); Aspartate Amino Transferase 30 U/L (5-37); Bilirubin Total 0.4 mg/dL (0.0-1.0); Blood Urea Nitrogen 10 mg/dL (9-16); Calcium 8.7 mg/dL (8.4-10.2); Carbon Dioxide 25 mmol/L (22-29); Chloride 94 mmol/L (96-108); Creatinine Clr Calc Pharmacy 87.9; Estimated Glomerular Filt Rate > 60; Glucose Random 225 mg/dL (60-115); Potassium 4.2 mmol/L (3.3-5.1); Sodium 136 mmol/L (135-145); Total Protein 6.7 g/dL (6.5-8.0)
[2021-09-24 04:10] LABS: Troponin-I High Sensitivity 14.4 ng/L (<3.5-35.0)
--- NOTE | 2021-09-24 04:10 | W.PM.CCCN ---
History of Present Illness Data of Consult Service Date: 09/23/21 Requesting physician: Marlene Adhikari Primary Care Provider: Adalberto Coleman MD HPI Reason for consult: status post cardiac arrest HPI:? 66-year-old male with underlying history of CVA and dense left hemiparesis, hypertension, cardiomyopathy, chf; seizures, atrial fibrillation currently on Pradaxa, heart failure, BPH, Raynaud's syndrome among others presents to us after cardiac arrest while in the ER where he went to get a KUB, as he had complained of ongoing abdominal pain and distension.? Patient received approximately 17 minutes of CPR and ACLS management until ROSC was fully achieved.? During the code the patient had developed he got 3 rounds of epinephrine, developed ventricular fibrillation and was given amiodarone, bicarb and for sedation receive Versed and fentanyl; reportedly the KUB shows early SBO. ?According to the Dr. Lou it is evident that the patient had aspirated, patient is currently intubated and will be transferred to the ICU for further workup. Patient is known to have been admitted to the hospital on 09/20/2021 due to left arm cellulitis which is being treated with cefazolin, he also had complaints of chest pain, abdominal pain and headache, at the time of admission his workup revealed a white count 9.4, H&H of 11 and respectively, INR 1.4, BNP of 479 which is baseline for him, troponin of 24 and an EKG that showed AFib with nonspecific changes but no evidence of ACS.? Initially he did have a chest CT that showed no pulmonary disease.? Abdominal CT showed no intra-abdominal pathology. ROS:? UNABLE TO OBTAIN PATIENT INTUBATED Past Medical History:? As above Past Surgical History:? As above Family history:? Unknown Social History: HCP Wanda Guy phone number [phone] FULL CODE; non-smoker; no etoh, lives alone CODE STATUS:? Full code Allergies:? No known drug allergies Home Medications:? see Med Rec PHYSICAL EXAM: VS:? Blood pressure 99/63? , heart rate 103 irregular, respirations 18, 99 % O2 sat on mechanical ventilation VENT SETTINGS : AC 18/400/5/100% ? General:? Sedated on a ventilator ? Skin:? Intact, no lesions, edema, erythema, clubbing or cyanosis.? No ulcers. ? HEENT:? Head is normocephalic, pupils 2 mm bilateral ? Cardiac:? Clear S1-S2, no murmurs rubs or gallops. ? Pulmonary:? Coarse lung sounds bilaterally and throughout with rhonchi on the right. ? Abdomen:? Protuberant, distended, no bowel sounds noted, tense. ? Musculoskeletal:? No bony abnormalities, on passive range of motion at the major joints there is no cog wheeling or crepitus, no calf asymmetry or edema of the legs.? ? Neurologic:? As above otherwise unable to assess ? Vascular:? 2+ pulses upper and lower extremities distally. SIGNIFICANT LABORATORY DATA: White count 20.6 from (8.7); H&H of 10.8 and 34, platelets 182, sodium 136, potassium 4.2, chloride 94, carbon dioxide 25, anion gap 21, BUN 10, creatinine 1.07, glucose 225, lactic acid 8.0.? Troponin 14.4; Venous Blood gas pH 7.21, pCO2 74, PO2 197, HC03 30 base excess 0.9. REVIEW OF IMAGES: CHEST X-RAY IMPRESSION Endotracheal tube terminates 3.5 cm above the sofía. Enteric tube terminates over the distal esophagus. Recommend advancement. Mild bronchial wall thickening in the lungs with no consolidation. KUB IMPRESSION Increased gaseous distention of small bowel with gaseous distention of the stomach. This is a change from prior. There is scattered gas noted in the colon. The appearance could represent an early obstruction. Ileus possible. EKG REVIEW: atrial fibrillation rate tricky rate 80 beats per minute. There is no ST elevations or depressions, QTC 479, no comparison available. ASSESSMENT AND PLAN: 1. STATUS POST CARDIAC ARREST 2. ASPIRATION PNEUMONITIS 3. EARLY SBO 4. CHRONIC ATRIAL FIBRILLATION WITH RAPID VENTRICULAR RESPONSE 5. LEFT UPPER EXTREMITY CELLULITIS 6. ANEMIA OF CHRONIC DISEASE 7. REACTIVE LEUKOCYTOSIS 8. LACTATE USE OF VENTILATOR AND HYPOTENSION ALL 2RY TO CARDIAC ARREST / NO SUSICION OF SEPSIS 9. Coffee ground emesis r/o UGIB as pt is on pradaxa Will obtain EKG, troponin, basic laboratories, blood gas; will follow cooling protocol; will discontinue Diovan, continue with all other medications, will add Zosyn as it is clear that he aspirated as noted on the CXR obtained after the central line placement, if needed consult surgery in the morning, will give Lopressor IV for rate control as he is on metoprolol XL a home.? Monitor vanco troughs. CT abdomen and pelvis to further assess the degree of the SBO. ? GI PROPHYLAXIS: IV PROTONIX DVT PROPHYLAXIS: ON PRADAXA Critical care time used for critical evaluation of this patient, diagnosis, treatment and coordination of care, review her records and documentation TOTAL CRITICAL CARE TIME 90 MIN Patient's care was discussed in detail with Dr. Lee.? He is aware of all the above as well as the plan of care for this patient. ? [facility] Past Medical History Medical History Anemia Bradycardia Cardiomyopathy Chronic atrial fibrillation Chronic HFrEF (heart failure with reduced ejection fraction) CVA (cerebral vascular accident) HTN (hypertension) Obesity Raynaud disease Family History Family History Father Emphysema lung Mother Cardiovascular disease Social History Social History Household Members: Caregiver Housing: Apartment Do you presently have visiting nurse or other home services: No Unable to assess alcohol history related to: Unknown Alcohol intake: never Patient Tobacco Use Status: Never used Tobacco Second Hand Smoke Exposure: No Advance Directives Date on File: 11/23/20 service: No Current occupational status: disabled Meds Allergies Allergy/AdvReac Type Severity Reaction Status Date / Time No Known Allergies Allergy Verified 08/29/21 21:04 Active Medications: Current Medications Acetaminophen (Acetaminophen 325 Mg Tablet) 650 mg PO Q6H PRN PRN Reason: Pain, Mild (Pain Scale 1-3) Last Admin: 09/23/21 08:43 Dose: 650 mg Documented by: Albuterol Sulfate (Albuterol Sulfate (0.083%) 2.5 Mg/3 Ml Vial.Neb) 2.5 mg INHALE RQ6H VENITA Last Admin: 09/24/21 01:15 Dose: 2.5 mg Documented by: Albuterol Sulfate (Albuterol Sulfate 90 Mcg 8 Gm Inhaler) 2 puff INHALE Q6H PRN PRN Reason: wheezing Atorvastatin Calcium (Atorvastatin Calcium 10 Mg Tablet) 10 mg PO BEDTIME VENITA Last Admin: 09/23/21 20:31 Dose: 10 mg Documented by: Dabigatran (Dabigatran Etexilate Mesylate 150 Mg Capsule) 150 mg PO BID@1200,2100 [facility] Last Admin: 09/23/21 20:32 Dose: 150 mg Documented by: Escitalopram Oxalate (Escitalopram Oxalate 20 Mg Tablet) 20 mg PO DAILY@1200 [facility] Last Admin: 09/23/21 12:07 Dose: 20 mg Documented by: Vancomycin HCl 1,000 mg/ (Sodium Chloride) 270 mls @ 270 mls/hr IV Q12H [facility] Last Infusion: 09/23/21 16:53 Dose: Infused Documented by: Propofol (Diprivan) 1,000 mg in 100 mls @ 0 mls/hr IVCONT .Q0M [facility]; Protocol Norepinephrine Bitartrate (Levophed) 8 mg in 250 mls @ 0 mls/hr IVCONT .Q0M [facility]; Protocol Piperacillin Sod/Tazobactam (Sod 3.375 gm/ Sodium Chloride) 50 mls @ 100 mls/hr IV Q6H [facility] Levetiracetam (Levetiracetam 1,000 Mg Tablet) 1,000 mg PO BID@1200,2100 [facility] Last Admin: 09/23/21 20:31 Dose: 1,000 mg Documented by: Lidocaine (Lidocaine 4 % Patch Adh..Patch) 1 patch TRANSDERMA DAILY PRN; Protocol PRN Reason: Pain, Severe (Pain Scale 7-10) Metoprolol Tartrate (Metoprolol Tartrate 5 Mg/5 Ml Vial) 2.5 mg IVPUSH ONCE ONE Stop: 09/24/21 04:04 Metoprolol Tartrate (Metoprolol Tartrate 5 Mg/5 Ml Vial) 5 mg IVPUSH Q6H PRN PRN Reason: Heart Rate >100 Ondansetron HCl (Ondansetron Hcl 4 Mg/2 Ml Vial) 4 mg IVPUSH Q8H PRN PRN Reason: Nausea and Vomiting Last Admin: 09/24/21 02:15 Dose: 4 mg Documented by: Pantoprazole Sodium (Pantoprazole Sodium 40 Mg/10 Ml Vial) 40 mg IVPUSH DAILY@0630 [facility] Pharmacy Consult (Consult Rx Vancomycin Dosing) 1 each MISCELLANE DAILY PRN PRN Reason: Consult order Sodium Chloride (0.9 % Sodium Chloride Flush 3 Ml Syringe) 3 ml IVFLUSH QSHIFT [facility] Last Admin: 09/23/21 20:33 Dose: 3 ml Documented by: Home Medications Medication Instructions Recorded Confirmed Last Taken Type citalopram 40 mg tablet 1 tab PO DAILY@1200 01/08/21 09/20/21 Unknown History dabigatran etexilate 150 mg 1 cap PO BID@1200,2100 01/08/21 09/20/21 Unknown History capsule (Pradaxa) hydroxyzine HCl 10 mg tablet 10 mg PO BEDTIME 01/08/21 09/20/21 Unknown History levetiracetam 1,000 mg tablet 1 tab PO BID@1200,2100 01/08/21 09/20/21 Unknown History melatonin 5 mg tablet 2 tab PO BEDTIME 01/08/21 09/20/21 Unknown History metoprolol succinate 25 mg 1 tab PO QAM 01/08/21 09/20/21 Unknown History tablet,extended release 24 hr pantoprazole 40 mg tablet,delayed 1 tab PO QAM 01/08/21 09/20/21 Unknown History release simvastatin 20 mg tablet 1 tab PO QPM 01/08/21 09/20/21 Unknown History albuterol sulfate 90 mcg/actuation 2 puff INHALATION Q4-6H PRN 02/11/21 09/20/21 Unknown History aerosol inhaler (ProAir HFA) ascorbic acid (vitamin C) 500 mg 500 mg PO DAILY 05/30/21 09/20/21 Unknown History tablet (Vitamin C) ferrous gluconate 324 mg (38 mg 324 mg PO DAILY 05/30/21 09/20/21 Unknown History iron) tablet gabapentin 100 mg capsule 200 mg PO TID 05/30/21 09/20/21 Unknown History valsartan 80 mg tablet 80 mg PO BID 05/30/21 09/20/21 Unknown History furosemide 20 mg tablet 40 mg PO DAILY 09/20/21 09/20/21 Unknown History polyethylene glycol 3350 17 gram 17 g PO DAILY 09/20/21 09/20/21 Unknown History oral powder packet acetaminophen 325 mg tablet 2 tab PO Q4H PRN 09/21/21 09/21/21 Unknown History sennosides 8.6 mg-docusate sodium 2 tab PO BID 09/21/21 09/21/21 Unknown History 50 mg tablet (Senexon-S) Physical Exam Vital Signs: Vital Signs: Last Vital Signs Temp 98.2 F 09/23/21 23:23 Pulse 102 H 09/24/21 01:15 Resp 17 09/23/21 23:23 BP 176/84 H 09/23/21 23:23 Pulse Ox 97 09/23/21 23:23 BMI result Body Mass Index 40.3 Results Labs CBC & Chem 7: 09/24/21 03:30 09/24/21 13:29 Labs: Short CBC 09/24/21 Range/Units 03:30 WBC 20.6 H (4.8-10.8) X10*3/uL Hgb 10.8 L (14.0-18.0) g/dl Hct 34.0 L (42.0-52.0) % Plt Count 182 D (160-400) X10*3/uL BMP 09/23/21 09/24/21 05:54 03:30 Sodium 136 Potassium 4.2 Chloride 94 L Carbon Dioxide 25 BUN 10 Creatinine 0.68 1.07 Calcium 8.7 Liver Function 09/24/21 Range/Units 03:30 Total Bilirubin 0.4 (0.0-1.0) mg/dL AST 30 D (5-37) U/L ALT 38 (0-40) U/L Alkaline Phosphatase 88 (39-117) U/L Albumin 3.9 (3.5-5.0) g/dL Microbiology Microbiology Results: Microbiology 09/20/21 22:37 Blood - Venous Blood Culture - Preliminary No growth after 48 hours. 09/20/21 22:31 Blood - Venous Blood Culture - Preliminary No growth after 48 hours.
[2021-09-24] MEDS: propofoL 1,000 MG/100 ML VIAL 36.06 MG IVCONT ×9 (04:30→23:16)
--- NOTE | 2021-09-24 04:31 | W.PM.CCHP ---
Procedures Date of Service Date of Service: 09/24/21 Central Line Placement A quick time-out was made for clarification and proper patient identification, patient was positioned, landmarks were identified, US used to locate a large compressible IJ. The right neck was widely prepped and draped in a full sterile fashion. Ultrasound was used to locate again the right IJ, the vein was cannulated on the 1st pass with an 18 gauge thin needle, dark nonpulsatile blood return was obtained. The wire was threaded, a small incision was made at its base and dilator inserted. A triple-lumen central venous catheter was advanced into the vein up to the hub without problems, wired was removed. Ports had good blood return and flushed x3. The catheter was secured with 3 sutures at 3 sites, a Biopatch and dry sterile dressing were applied. Post procedure chest x-ray showed the line to be in good position without pneumothorax. No bleeding or complications noted.: Consent for Procedure: Elective - informed consent obtained (from HCP Wanda Guy) Time out performed: Yes Sterile Technique Used: Yes Patient placed on monitor/pulse ox: Yes MD prep: mask, gown and gloves Central line prep: Chlorhexidine scrub Ultrasound used for placement: Yes Post procedure: sutured in place, good blood return, all ports aspirated, flushed, capped and sterile dressing applied Post procedure x-ray: tip of catheter in good position and no pneumothorax seen Patient tolerated procedure: well and no complications Complications: none
[2021-09-24] MEDS: vancomycin HCL 1,000 MG in 0.9 % Sodium Chloride 250 ML 270 MG IV (04:58)
[2021-09-24 05:42] LABS: Reflex Lactate? Lactic Acid Added
[2021-09-24] MEDS: Rocuronium Bromide 50 MG/5 ML VIAL IVPUSH (06:05)
[2021-09-24] MEDS: Piperacillin Sodium/Tazobactam 3.375 GM in 0.9 % Sodium Chloride 50 ML IV ×4 (06:05→23:08)
[2021-09-24] MEDS: Pantoprazole Sodium 40 MG/10 ML VIAL IVPUSH ×2 (06:06→16:10)
[2021-09-24 06:45] LABS: ~Lactic Acid-LAB USE ONLY 2.7 mmol/L (0.5-2.0)
[2021-09-24] MEDS: fentaNYL citrate/NS 1,000 MCG/100 ML PLAST..BAG 5 MCG IVCONT ×2 (06:46→23:15)
[2021-09-24 06:53] LABS: GASOB Int Neg Ctl Valid YES; GASOB Int Pos Ctl Valid YES; Occult Blood Gastric NEG (NEG)
[2021-09-24 08:18] LABS: Reflex Lactate? 2 Y
--- NOTE | 2021-09-24 08:18 | PC.NURSE ---
Addendum entered by Vicky Ruffin RN 09/24/21 10:47: Abd remains taunt and firm- intra abdominal pressure done, reading 30-35, aware. Original Note: Pt to ICU at approx 0400 s/p cardiac arrest during imaging. Intubated during code- ETT #7.5, 25 cm at lip. Current vent settings- AC 18/400/+10/100%, SpO2 86-90%. Intermittent high peak pressures, bagged/lavaged with minimal effect, PA aware. On propofol gtt for sedation, responds to noxious stimuli, +C/G. Fentanyl gtt added for vent synchrony, RR 30s. Afib on tele, HR 70-110s. Levophed gtt ordered and titrated to maintain MAP > 65. OGT placed, on LWS, 100 ml of brown aspirate, sample sent. Abd firm/distended. Pacheco in place, oliguric, PA aware. TLC placed to R IJ. Skin- stage 1 to buttocks. LUE contracted, myoclonus noted to R face and RUE.]
[2021-09-24 09:09] LABS: ~Lactic Acid-LAB USE ONLY 2.1 mmol/L (0.5-2.0)
[2021-09-24] MEDS: Cisatracurium Besylate 20 MG/10 ML VIAL 10 MG IVPUSH (10:07)
[2021-09-24 11:10] LABS: Lipase 8 U/L (8-78)
[2021-09-24] MEDS: LORazepam 2 MG/ML VIAL IVPUSH ×3 (11:30→21:30)
--- NOTE | 2021-09-24 13:46 | P.PNCC_ITS ---
Subjective Subjective Date of Service: 09/24/21 Interval History: Mr. Jamar Muñoz was transferred to ICU early this morning following a cardiac arrest. 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 He also had complaints of chest pain, abdominal pain and headache.? Noncontrast CT abd and chest on admission were unremarkable for anything acute. Early this morning c/o abdom pain, distention, and nausea.? Was sent to the ED to get a KUB.? While in Xray, had a large vomitus, and went into cardiac arrest.? Initial rhythm PEA.? 3 rounds of Epi, 17 min of CPR, then Vfib, shock, and ROSC.? KUB showed a gastric dil and diffuse small bowel distension. The patient reportedly aspirated.? Was tx to ICU intubated.? Central line was placed and the patient was put on Levophed.? Initial lactate 8.0. [The elevated lactate, use of the ventilator, and hypotension at that time were all secondary to cardiac arrest, not sepsis.]? Labs in the ICU otherwise remarkable for white count of 20, initial central venous blood gas 7.21/74/0, BUN/creatinine 10/1.0 (up from creatinine 0.7), troponin 14, lipase 8.? The patient was volume resuscitated and Zosyn was added. On my exam today, the patient is on Levophed 0.17 mcg, propofol 50 mcg, and fen tanyl 50 mcg.? The patient is having freq myoclonic jerking.? He?s unresponsive.? HR is 75, atrial fibrillation.? BP 107/71.? On AC18/400/100%/+10, RR is 18, Ve 7.1L, PIP 45,? ETCO2 30, Sat 95%.? On exam, his belly was hugely distended and very firm.? IAP measurement was 33-36cm.? The patient was not making urine. Lactate progressively down to 2.1, then up to 3.0. I consulted wiith Dr. Rambissoon from [facility] re possible ACS.? We examined the patient at the bedside.? Sent for Abd, chest, and head CT: - Head CT:? Old large MCA infarct.? No change. - Chest CT:? Dense consolidation both lungs posteriorly with air bronchograms, sparing only the lung apices.? Undoubtedly secondary to aspiration. - Abd/Pelvic CT:? Large gastric dil; mildly dilated fluid-filled small bowel loops suggesting an ileus; obstipation, with stool in the distal colon and rectum.? Pacheco catheter looks malpositioned. On return to the ICU, the OGT was replaced with an 18Fr Hayes sump, with large yield of brownish fluid and gas.? The Pacheco catheter was replaced, with large yield of urine. ?After replacement of the gastric tube and the Pacheco catheter, the abdomen was much softer and much smaller.? The peak inspiratory pressures dropped about 10 points.? No more clinical concern about ACS. Later, he had more severe and more generalized jerking activity (while on the Keppra and propofol), dorys the right arm and head jerking to the right.? We gave him Ativan 2mg IVP and it stopped. ECHOCARDIOGRAM for hemodynamic monitoring: Image quality:? Good.? Findings: 1. Wall thickness not assessed. 2. LV cavity size is normal, mild-mod global hypokinesis.? LV EF about 35%.? Given afib, unable to accurately assess RWM, but no gross RWMA noted. 3. RV size normal. 4. Atria not adequately assessed. 5. AoV not adeq assessed. 6. MV morphologically normal with no MR by color carlos enrique. 7. TV morphologically normal.? 1+ TR by color carlos enrique.? CWD measured about 2.4 m/sec (gradient 23mm). 8. IVC 2.7 cm w minimal insp collapse.? Estimated CVP 15cm.? RVSP estimate 38mm. IMPRESSION: 1. Previous Rt MCA stroke. 2. Left arm cellulitis:? Resolving. 3. Underlying cardiomyopathy (last echo 12/2020, EF 35-40%). 4. H/o seizures, on Keppra. 5. Underlying atrial fibrillation, on Pradaxa. 6. S/P cardiac arrest, with 17 min CPR time, with post arrest myclonus vs sz activity.? Already on propofol and Keppra.? Changed Keppra to IV.? We?ll give Ativan 2mg q6 x 2, then EEG in the morning. 7. Massive aspiration pneumonia. 8. Acute respiratory failure, 2? above. 9. SIRS shock post aspiration. Now may be septic. BC's pending. Fluids contraindicated bec of documented fluid overload. Continuing Vanco and Zosyn. 10. Cardiac echo prob unchanged from previous.? And he?s volume overloaded. Prognosis is grim.? ISAAC Urena will speak w family later tonite. Critical care time (including extensive d/w ISAAC Urena, extended rev of old chart and old roentgenograms; mult visits to the bedside; and short d/w family):? 2:15+ hrs. Critical Care Time (minutes): 135 Physical Exam Verdana 4l Vital Signs: Verdana 4d Verdana 4d Vital Signs: Verdana 4d Verdana 4Bd Last Vital Signs Verdana 4d Heat Treating Bluer New 4d Heat Treating Bluer New 4d Temp 96.4 F L 09/24/21 13:00 Heat Treating Bluer New 4d Pulse 82 09/24/21 13:00 Heat Treating Bluer New 4d Resp 18 09/24/21 13:00 BP 97/51 L 09/24/21 13:00 Pulse Ox 92 09/24/21 13:00 BMI result Body Mass Index 40.3 Objective Data Labs CBC & Chem 7: 09/24/21 03:30 09/24/21 13:29 Labs: Laboratory Results - last 24 hr 09/24/21 09/24/21 09/24/21 02:56 03:24 03:30 WBC 20.6 H RBC 3.36 L Hgb 10.8 L Hct 34.0 L MCV 101.2 H MCH 32.1 MCHC 31.8 RDW 14.5 Plt Count 182 D MPV 10.3 Immature Gran % (Auto) 3.3 H Neut % (Auto) 74.4 H Lymph % (Auto) 15.4 L Weakley % (Auto) 5.9 Eos % (Auto) 0.8 Baso % (Auto) 0.2 Lymph # (Auto) 3.2 Weakley # (Auto) 1.2 Eos # (Auto) 0.2 Baso # (Auto) 0.0 Abs Immat Gran (auto) 0.67 H Absolute Neuts (auto) 15.3 H Absolute Nucleated RBC 0.000 Nucleated RBC % (auto) 0.0 VBG pH VBG pCO2 VBG pO2 VBG HCO3 VBG O2 Saturation VBG Base Excess Sodium Potassium Chloride Carbon Dioxide Anion Gap BUN Creatinine Estim Creat Clear Calc Estimated GFR POC Glucose 191 H 261 H Random Glucose Lactic Acid Lactic Acid F/U @ 2Hr Lactic Acid F/U @ 4Hr Calcium Total Bilirubin AST ALT Alkaline Phosphatase Troponin I High Sens Total Protein Albumin Lipase Gastric Occult Blood 09/24/21 09/24/21 09/24/21 03:30 03:30 03:30 WBC RBC Hgb Hct MCV MCH MCHC RDW Plt Count MPV Immature Gran % (Auto) Neut % (Auto) Lymph % (Auto) Weakley % (Auto) Eos % (Auto) Baso % (Auto) Lymph # (Auto) Weakley # (Auto) Eos # (Auto) Baso # (Auto) Abs Immat Gran (auto) Absolute Neuts (auto) Absolute Nucleated RBC Nucleated RBC % (auto) VBG pH VBG pCO2 VBG pO2 VBG HCO3 VBG O2 Saturation VBG Base Excess Sodium 136 Potassium 4.2 Chloride 94 L Carbon Dioxide 25 Anion Gap 21 H BUN 10 Creatinine 1.07 Estim Creat Clear Calc 87.9 Estimated GFR > 60 POC Glucose Random Glucose 225 H D Lactic Acid 8.0 H* Lactic Acid F/U @ 2Hr Lactic Acid F/U @ 4Hr Calcium 8.7 Total Bilirubin 0.4 AST 30 D ALT 38 Alkaline Phosphatase 88 Troponin I High Sens 14.4 Total Protein 6.7 Albumin 3.9 Lipase 8 Gastric Occult Blood 09/24/21 09/24/21 09/24/21 03:35 06:15 06:29 WBC RBC Hgb Hct MCV MCH MCHC RDW Plt Count MPV Immature Gran % (Auto) Neut % (Auto) Lymph % (Auto) Weakley % (Auto) Eos % (Auto) Baso % (Auto) Lymph # (Auto) Weakley # (Auto) Eos # (Auto) Baso # (Auto) Abs Immat Gran (auto) Absolute Neuts (auto) Absolute Nucleated RBC Nucleated RBC % (auto) VBG pH 7.21 L VBG pCO2 74 VBG pO2 197 VBG HCO3 30 H VBG O2 Saturation 99.0 VBG Base Excess 0.9 Sodium Potassium Chloride Carbon Dioxide Anion Gap BUN Creatinine Estim Creat Clear Calc Estimated GFR POC Glucose Random Glucose Lactic Acid Lactic Acid F/U @ 2Hr 2.7 H* Lactic Acid F/U @ 4Hr Calcium Total Bilirubin AST ALT Alkaline Phosphatase Troponin I High Sens Total Protein Albumin Lipase Gastric Occult Blood NEG 09/24/21 08:30 WBC RBC Hgb Hct MCV MCH MCHC RDW Plt Count MPV Immature Gran % (Auto) Neut % (Auto) Lymph % (Auto) Weakley % (Auto) Eos % (Auto) Baso % (Auto) Lymph # (Auto) Weakley # (Auto) Eos # (Auto) Baso # (Auto) Abs Immat Gran (auto) Absolute Neuts (auto) Absolute Nucleated RBC Nucleated RBC % (auto) VBG pH VBG pCO2 VBG pO2 VBG HCO3 VBG O2 Saturation VBG Base Excess Sodium Potassium Chloride Carbon Dioxide Anion Gap BUN Creatinine Estim Creat Clear Calc Estimated GFR POC Glucose Random Glucose Lactic Acid Lactic Acid F/U @ 2Hr Lactic Acid F/U @ 4Hr 2.1 H* Calcium Total Bilirubin AST ALT Alkaline Phosphatase Troponin I High Sens Total Protein Albumin Lipase Gastric Occult Blood Microbiology Microbiology Results: Microbiology 09/20/21 22:37 Blood - Venous Blood Culture - Preliminary No growth after 48 hours. 09/20/21 22:31 Blood - Venous Blood Culture - Preliminary No growth after 48 hours. Quality Stroke Does the patient have a stroke diagnosis?: No VTE Prior VTE?: No VTE Risk Level:: Medical - moderate - high VTE Device Contraindication: Treatment Not Indicated VTE Drug Contraindication: N/A - Med Ordered Critical Care Time Critical Care Time (minutes): 150
[2021-09-24] MEDS: levETIRAcetam in NaCl (iso-os) 1,000 MG/100 ML PIGGYBACK 400 MG IV (13:48)
[2021-09-24 13:57] LABS: VBG Base Excess 4.2 mmol/L; VBG HCO3 33 mmol/L (22-26); VBG pCO2 71 mmHg; VBG pH 7.27 (7.32-7.43); VBG pO2 52 mmHg
[2021-09-24 13:57] LABS: Venous Blood Gas Refer to POC result
[2021-09-24 14:01] LABS: Alanine Aminotransferase 32 U/L (0-40); Albumin Level 3.6 g/dL (3.5-5.0); Alkaline Phosphatase 64 U/L (39-117); Anion Gap 16 (12-20); Aspartate Amino Transferase 28 U/L (5-37); Bilirubin Total 1.1 mg/dL (0.0-1.0); Blood Urea Nitrogen 15 mg/dL (9-16); Calcium 8.5 mg/dL (8.4-10.2); Carbon Dioxide 28 mmol/L (22-29); Chloride 95 mmol/L (96-108); Creatinine Clr Calc Pharmacy 70.7; Estimated Glomerular Filt Rate 54; Glucose Random 165 mg/dL (60-115); Magnesium 1.6 mg/dL (1.6-2.6); Phosphorus 4.7 mg/dL (2.7-4.5); Potassium 4.3 mmol/L (3.3-5.1); Sodium 135 mmol/L (135-145); Total Protein 5.9 g/dL (6.5-8.0)
[2021-09-24 14:08] LABS: B Type Natriuretic Peptide 338 pg/mL (<100); Troponin-I High Sensitivity 96.3 ng/L (<3.5-35.0)
--- NOTE | 2021-09-24 14:23 | HE.PHANOTE ---
RE VANCOMYCIN DOSING Patient coded and subsequently transferred to ICU from floor. Patient was on 1g Q12H (suspected AUC 485 trough 12.1) Last actual trough was 12.7. After continuing the medication, we noticed an SCr rise from 0.68 to 1.07 to 1.33 (50% rise). I contacted Dr Lee to decrease frequency to 1500mg Q24H or possibly deescalate to doxy. Per Dr Lee; holding vanco, repeat random level at 0500 on 09/25.
[2021-09-24 14:34] LABS: Procalcitonin 2.11 ng/mL
--- NOTE | 2021-09-24 15:00 | MHC.CM.PN ---
Pt transferred to ICU after cardiac arrest s/p CPR: pt is intubated at this time. HCP on file and in chart. Original d/c plan was for a return to home with VNA services - CM to follow as this will likely change
[2021-09-24 15:20] LABS: Cancel Lactic Acid Canceled
[2021-09-24] MEDS: Magnesium Sulfate/D5W 1 GM/100 ML PIGGYBACK IV (16:10)
[2021-09-24] MEDS: 0.9 % Sodium Chloride Flush 3 ML SYRINGE IVFLUSH (16:15)
[2021-09-24] MEDS: Magnesium Sulfate/H2O 2 GM/50 ML PIGGYBACK IV (16:15)
--- NOTE | 2021-09-24 17:07 | PC.NURSE ---
VSS stable on levophed gtt. temperature 95-97 degrees. Afib on tele with multifocal pvcs, couplets, ronen HOFFMAN aware- 3g IV mag ordered. Pt sedated on propfofol and fentanyl, no cough/gag/ sedated for vent tolerance. Pt remains on vent settings, tolerating fair. Pacheco replaced with general surgeon, u/o wnl, pt repod q2hr as tolerated. family updated by this RN and
[2021-09-24 17:15] LABS: Lactic Acid 3.8 mmol/L (0.5-2.0)
[2021-09-24 17:27] LABS: Cancel Lactic Acid Canceled
--- NOTE | 2021-09-24 17:32 | P.CONGS_ITS ---
History of Present Illness Consult details Consult date: 09/24/21 Reason for consult: abdominal pain Requesting physician: Misha Lee Narrative: Consult for Abdominal Compartment Syndrome - - Mr. Jamar Muñoz was transferred to ICU early this morning following a cardiac arrest. 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 He also had complaints of chest pain, abdominal pain and headache.? Noncontrast CT abd and chest on admission were unremarkable for anything acute. Early this morning c/o abdom pain, distention, and nausea.? Was sent to the ED to get a KUB.? While in Xray, had a large vomitus, and went into cardiac arrest.? Initial rhythm PEA.? 3 rounds of Epi, 17 min of CPR, then Vfib, shock, and ROSC.? KUB showed a gastric dil and diffuse small bowel distension. In the ICU abdo large distended tense and no urine output - dotson had been inserted and ng when pt transferedd to icu after code. abdo compartment pressure in the ICU ?>30, no urine output. Pt during resus had lactate fgo from 8 to 2, was on pressors but stable no indication for abdominal compartment syndrome - pt was sent for CT scan which was normal, previous ct few days ago normal. CT now did show aspiration changes in the lungs. I reviewed the CT scan and while dotson was in the bladder bladder looked large like lots of urine and was not decompressed as it should be with dotson in place. IN ICU nurse took down the balloon and immediate release of yellow urine. We then switched dotson catheters and got great yellow urine release over 500 cc and abdomen much softer. NG tube also with some darkish material. Review of Systems Verdana 4l Review of Systems: Yes unobtainable due to endotracheal Verdana 4d tube PMFSH Past Medical History Medical History Anemia Bradycardia Cardiomyopathy Chronic atrial fibrillation Chronic HFrEF (heart failure with reduced ejection fraction) CVA (cerebral vascular accident) HTN (hypertension) Obesity Raynaud disease Family History Family History Father Emphysema lung Mother Cardiovascular disease Social History Social History Household Members: Caregiver Housing: Apartment Do you presently have visiting nurse or other home services: No Unable to assess alcohol history related to: Unknown Alcohol intake: never Patient Tobacco Use Status: Never used Tobacco Second Hand Smoke Exposure: No Advance Directives Date on File: 11/23/20 service: No Current occupational status: disabled Meds Allergies Allergy/AdvReac Type Severity Reaction Status Date / Time No Known Allergies Allergy Verified 08/29/21 21:04 Active Medications: Current Medications Acetaminophen (Acetaminophen 325 Mg Tablet) 650 mg PO Q6H PRN PRN Reason: Pain, Mild (Pain Scale 1-3) Last Admin: 09/23/21 08:43 Dose: 650 mg Documented by: Albuterol Sulfate (Albuterol Sulfate (0.083%) 2.5 Mg/3 Ml Vial.Neb) 2.5 mg INHALE RQ6H VENITA Last Admin: 09/24/21 11:29 Dose: 2.5 mg Documented by: Albuterol Sulfate (Albuterol Sulfate 90 Mcg 8 Gm Inhaler) 2 puff INHALE Q6H PRN PRN Reason: wheezing Atorvastatin Calcium (Atorvastatin Calcium 10 Mg Tablet) 10 mg PO BEDTIME [facility] Last Admin: 09/23/21 20:31 Dose: 10 mg Documented by: Dabigatran (Dabigatran Etexilate Mesylate 150 Mg Capsule) 150 mg PO BID@1200,2100 [facility] Last Admin: 09/24/21 13:13 Dose: Not Given Documented by: Escitalopram Oxalate (Escitalopram Oxalate 20 Mg Tablet) 20 mg PO DAILY@1200 [facility] Last Admin: 09/24/21 13:13 Dose: Not Given Documented by: Vancomycin HCl 1,000 mg/ (Sodium Chloride) 270 mls @ 270 mls/hr IV Q12H [facility] Last Infusion: 09/24/21 05:29 Dose: Infused Documented by: Propofol (Diprivan) 1,000 mg in 100 mls @ 0 mls/hr IVCONT .Q0M [facility]; Protocol Last Admin: 09/24/21 16:46 Dose: 50 mcg/kg/min, 36.06 mls/hr Documented by: Norepinephrine Bitartrate (Levophed) 8 mg in 250 mls @ 0 mls/hr IVCONT .Q0M [facility]; Protocol Last Admin: 09/24/21 16:44 Dose: 0.17 mcg/kg/min, 38.31 mls/hr Documented by: Piperacillin Sod/Tazobactam (Sod 3.375 gm/ Sodium Chloride) 50 mls @ 100 mls/hr IV Q6H [facility] Last Infusion: 09/24/21 13:42 Dose: Infused Documented by: Fentanyl (Sublimaze/Ns) 1,000 mcg in 100 mls @ 0 mls/hr IVCONT .Q0M [facility]; Protocol Last Admin: 09/24/21 06:46 Dose: 50 mcg/hr, 5 mls/hr Documented by: Levetiracetam (Keppra) 1,000 mg in 100 mls @ 400 mls/hr IV Q12H [facility] Last Infusion: 09/24/21 14:08 Dose: Infused Documented by: Magnesium Sulfate (Magnesium Sulfate/H2o) 2 gm in 50 mls @ 25 mls/hr IV ONCE ONE Stop: 09/24/21 17:37 Last Admin: 09/24/21 16:15 Dose: 25 mls/hr Documented by: Lidocaine (Lidocaine 4 % Patch Adh..Patch) 1 patch TRANSDERMA DAILY PRN; Protocol PRN Reason: Pain, Severe (Pain Scale 7-10) Lorazepam (Lorazepam 2 Mg/Ml Vial) 2 mg IVPUSH ONCE@2200 ONE Stop: 09/24/21 22:01 Metoprolol Tartrate (Metoprolol Tartrate 5 Mg/5 Ml Vial) 5 mg IVPUSH Q6H PRN PRN Reason: Heart Rate >100 Naloxone HCl (Naloxone Hcl 0.4 Mg/Ml Vial) 0.2 mg IVPUSH Q2M PRN PRN Reason: Excessive sedation or RR < 8 Ondansetron HCl (Ondansetron Hcl 4 Mg/2 Ml Vial) 4 mg IVPUSH Q8H PRN PRN Reason: Nausea and Vomiting Last Admin: 09/24/21 02:15 Dose: 4 mg Documented by: Pantoprazole Sodium (Pantoprazole Sodium 40 Mg/10 Ml Vial) 40 mg IVPUSH BID@0630,1630 [facility] Last Admin: 09/24/21 16:10 Dose: 40 mg Documented by: Pharmacy Consult (Consult Rx Vancomycin Dosing) 1 each MISCELLANE DAILY PRN PRN Reason: Consult order Sodium Chloride (0.9 % Sodium Chloride Flush 3 Ml Syringe) 3 ml IVFLUSH QSHIFT [facility] Last Admin: 09/24/21 16:15 Dose: 3 ml Documented by: Home Medications Medication Instructions Recorded Confirmed Last Taken Type citalopram 40 mg 1 tab PO 01/08/21 09/20/21 Unknown History tablet DAILY@1200 dabigatran 1 cap PO 01/08/21 09/20/21 Unknown History etexilate 150 mg BID@1200,2100 capsule (Pradaxa) hydroxyzine HCl 10 mg PO BEDTIME 01/08/21 09/20/21 Unknown History 10 mg tablet levetiracetam 1 tab PO 01/08/21 09/20/21 Unknown History 1,000 mg tablet BID@1200,2100 melatonin 5 mg 2 tab PO BEDTIME 01/08/21 09/20/21 Unknown History tablet metoprolol 1 tab PO QAM 01/08/21 09/20/21 Unknown History succinate 25 mg tablet,extended release 24 hr pantoprazole 40 1 tab PO QAM 01/08/21 09/20/21 Unknown History mg tablet,delayed release simvastatin 20 mg 1 tab PO QPM 01/08/21 09/20/21 Unknown History tablet albuterol sulfate 2 puff 02/11/21 09/20/21 Unknown History 90 mcg/actuation INHALATION Q4-6H PRN aerosol inhaler (ProAir HFA) ascorbic acid 500 mg PO DAILY 05/30/21 09/20/21 Unknown History (vitamin C) 500 mg tablet (Vitamin C) ferrous gluconate 324 mg PO DAILY 05/30/21 09/20/21 Unknown History 324 mg (38 mg iron) tablet gabapentin 100 mg 200 mg PO TID 05/30/21 09/20/21 Unknown History capsule valsartan 80 mg 80 mg PO BID 05/30/21 09/20/21 Unknown History tablet furosemide 20 mg 40 mg PO DAILY 09/20/21 09/20/21 Unknown History tablet polyethylene 17 g PO DAILY 09/20/21 09/20/21 Unknown History glycol 3350 17 gram oral powder packet acetaminophen 325 2 tab PO Q4H PRN 09/21/21 09/21/21 Unknown History mg tablet sennosides 8.6 2 tab PO BID 09/21/21 09/21/21 Unknown History mg-docusate sodium 50 mg tablet (Senexon-S) Physical Exam Verdana 4l Vital Signs: Verdana 4d Verdana 4d Vital Signs: Verdana 4d Verdana 4Bd Last Vital Signs Verdana 4d Aquatics Manager New 4d Aquatics Manager New 4d Temp 95 F L 09/24/21 17:00 Aquatics Manager New 4d Pulse 72 09/24/21 17:00 Aquatics Manager New 4d Resp 18 09/24/21 17:00 BP 113/53 L 09/24/21 17:00 Pulse Ox 96 09/24/21 17:00 BMI result Body Mass Index 40.3 GI: Other: abdo initially very distended typanitic firm but with some give, afer ng and dotson replaced much softer and less distended and hypo sounds Results Labs Result diagrams: 09/24/21 03:30 09/24/21 13:29 Labs: Abnormal lab results 09/24/21 09/24/21 09/24/21 Range/Units 02:56 03:24 03:30 WBC 20.6 H (4.8-10.8) X10*3/uL RBC 3.36 L (4.60-5.80) X10*6/uL Hgb 10.8 L (14.0-18.0) g/dl Hct 34.0 L (42.0-52.0) % MCV 101.2 H (80.0-98.0) fL Immature Gran % (Auto) 3.3 H (0.0-0.4) % Neut % (Auto) 74.4 H (45-73) % Lymph % (Auto) 15.4 L (20-40) % Abs Immat Gran (auto) 0.67 H (0.00-0.03) X10*3/uL Absolute Neuts (auto) 15.3 H (2.0-8.3) x10*3/uL VBG pH (7.32-7.43) VBG HCO3 (22-26) mmol/L Chloride (96-108) mmol/L Anion Gap (12-20) POC Glucose 191 H 261 H (60-115) mg/dL Random Glucose (60-115) mg/dL Lactic Acid (0.5-2.0) mmol/L Lactic Acid F/U @ 2Hr (0.5-2.0) mmol/L Lactic Acid F/U @ 4Hr (0.5-2.0) mmol/L Phosphorus (2.7-4.5) mg/dL Total Bilirubin (0.0-1.0) mg/dL Troponin I High Sens (<3.5-35.0) ng/L B-Natriuretic Peptide (<100) pg/mL Total Protein (6.5-8.0) g/dL 09/24/21 09/24/21 09/24/21 Range/Units 03:30 03:30 03:35 WBC (4.8-10.8) X10*3/uL RBC (4.60-5.80) X10*6/uL Hgb (14.0-18.0) g/dl Hct (42.0-52.0) % MCV (80.0-98.0) fL Immature Gran % (Auto) (0.0-0.4) % Neut % (Auto) (45-73) % Lymph % (Auto) (20-40) % Abs Immat Gran (auto) (0.00-0.03) X10*3/uL Absolute Neuts (auto) (2.0-8.3) x10*3/uL VBG pH 7.21 L (7.32-7.43) VBG HCO3 30 H (22-26) mmol/L Chloride 94 L (96-108) mmol/L Anion Gap 21 H (12-20) POC Glucose (60-115) mg/dL Random Glucose 225 H D (60-115) mg/dL Lactic Acid 8.0 H* (0.5-2.0) mmol/L Lactic Acid F/U @ 2Hr (0.5-2.0) mmol/L Lactic Acid F/U @ 4Hr (0.5-2.0) mmol/L Phosphorus (2.7-4.5) mg/dL Total Bilirubin (0.0-1.0) mg/dL Troponin I High Sens (<3.5-35.0) ng/L B-Natriuretic Peptide (<100) pg/mL Total Protein (6.5-8.0) g/dL 09/24/21 09/24/21 09/24/21 Range/Units 06:15 08:30 13:29 WBC (4.8-10.8) X10*3/uL RBC (4.60-5.80) X10*6/uL Hgb (14.0-18.0) g/dl Hct (42.0-52.0) % MCV (80.0-98.0) fL Immature Gran % (Auto) (0.0-0.4) % Neut % (Auto) (45-73) % Lymph % (Auto) (20-40) % Abs Immat Gran (auto) (0.00-0.03) X10*3/uL Absolute Neuts (auto) (2.0-8.3) x10*3/uL VBG pH (7.32-7.43) VBG HCO3 (22-26) mmol/L Chloride 95 L (96-108) mmol/L Anion Gap (12-20) POC Glucose (60-115) mg/dL Random Glucose 165 H (60-115) mg/dL Lactic Acid (0.5-2.0) mmol/L Lactic Acid F/U @ 2Hr 2.7 H* (0.5-2.0) mmol/L Lactic Acid F/U @ 4Hr 2.1 H* (0.5-2.0) mmol/L Phosphorus 4.7 H (2.7-4.5) mg/dL Total Bilirubin 1.1 H (0.0-1.0) mg/dL Troponin I High Sens (<3.5-35.0) ng/L B-Natriuretic Peptide (<100) pg/mL Total Protein 5.9 L (6.5-8.0) g/dL 09/24/21 09/24/21 09/24/21 Range/Units 13:29 13:29 13:36 WBC (4.8-10.8) X10*3/uL RBC (4.60-5.80) X10*6/uL Hgb (14.0-18.0) g/dl Hct (42.0-52.0) % MCV (80.0-98.0) fL Immature Gran % (Auto) (0.0-0.4) % Neut % (Auto) (45-73) % Lymph % (Auto) (20-40) % Abs Immat Gran (auto) (0.00-0.03) X10*3/uL Absolute Neuts (auto) (2.0-8.3) x10*3/uL VBG pH 7.27 L (7.32-7.43) VBG HCO3 33 H (22-26) mmol/L Chloride (96-108) mmol/L Anion Gap (12-20) POC Glucose (60-115) mg/dL Random Glucose (60-115) mg/dL Lactic Acid 3.0 H* (0.5-2.0) mmol/L Lactic Acid F/U @ 2Hr (0.5-2.0) mmol/L Lactic Acid F/U @ 4Hr (0.5-2.0) mmol/L Phosphorus (2.7-4.5) mg/dL Total Bilirubin (0.0-1.0) mg/dL Troponin I High Sens 96.3 H D (<3.5-35.0) ng/L B-Natriuretic Peptide 338 H (<100) pg/mL Total Protein (6.5-8.0) g/dL 09/24/21 Range/Units 16:53 WBC (4.8-10.8) X10*3/uL RBC (4.60-5.80) X10*6/uL Hgb (14.0-18.0) g/dl Hct (42.0-52.0) % MCV (80.0-98.0) fL Immature Gran % (Auto) (0.0-0.4) % Neut % (Auto) (45-73) % Lymph % (Auto) (20-40) % Abs Immat Gran (auto) (0.00-0.03) X10*3/uL Absolute Neuts (auto) (2.0-8.3) x10*3/uL VBG pH (7.32-7.43) VBG HCO3 (22-26) mmol/L Chloride (96-108) mmol/L Anion Gap (12-20) POC Glucose (60-115) mg/dL Random Glucose (60-115) mg/dL Lactic Acid 3.8 H* (0.5-2.0) mmol/L Lactic Acid F/U @ 2Hr (0.5-2.0) mmol/L Lactic Acid F/U @ 4Hr (0.5-2.0) mmol/L Phosphorus (2.7-4.5) mg/dL Total Bilirubin (0.0-1.0) mg/dL Troponin I High Sens (<3.5-35.0) ng/L B-Natriuretic Peptide (<100) pg/mL Total Protein (6.5-8.0) g/dL Short CBC 09/24/21 Range/Units 03:30 WBC 20.6 H (4.8-10.8) X10*3/uL Hgb 10.8 L (14.0-18.0) g/dl Hct 34.0 L (42.0-52.0) % Plt Count 182 D (160-400) X10*3/uL BMP 09/24/21 09/24/21 03:30 13:29 Sodium 136 135 Potassium 4.2 4.3 Chloride 94 L 95 L Carbon Dioxide 25 28 BUN 10 15 Creatinine 1.07 1.33 Calcium 8.7 8.5 Liver Function 09/24/21 09/24/21 Range/Units 03:30 13:29 Total Bilirubin 0.4 1.1 H (0.0-1.0) mg/dL AST 30 D 28 (5-37) U/L ALT 38 32 (0-40) U/L Alkaline Phosphatase 88 64 D (39-117) U/L Albumin 3.9 3.6 (3.5-5.0) g/dL Urine 09/20/21 Range/Units 21:03 Urine Color YELLOW Urine Appearance CLEAR Urine pH 6.0 (5.0-8.0) Ur Specific [place] 1.015 (1.005-1.025) Urine Protein NEG (NEG-TRACE) MG/DL Urine Glucose (UA) NEG (NEG) MG/DL All other labs normal. Imaging Abdomen CT scan report/results: report reviewed and image reviewed CT scan - pelvis: report reviewed and image reviewed Assessment and Plan (1) Ileus, unspecified: Status: Acute Plan 66 year old male with medical issues as described above with abdo pain - nonsp ecific and now with cardiac event. no evidence of compartment syndrome - probable ileus , to rule out psbo, and nondraining urinary bladder - improved with ng and dotson cath. cont to decompress with these and supportive care. cont npo and can follow ng output and kub to determine GI function concerned that with the event he may have taken a worse neuro hit and this will be more of an issue than GI. Reconsult as needed. Procedures Date of Service Date of Service: 09/24/21
--- NOTE | 2021-09-24 19:47 | P.ACPN_ITS ---
Advanced Care Planning Note Advanced Care Planning Note Discussed with: family member(s) (HCP Mrs Cheryl Mascorro patient's SISTER and LEGAL HCP) Time spent (in minutes): 15 Narrative: I had a lengthy discussion with the patient's sister mentioned above, she is aware of the patient's clinical situation, recent sequence of events including cardiac arrest, intubation, aspiration pneumonitis and the fact that he was initially admitted for left upper extremity cellulitis. Patient is aware that she is the legal small business sales representative for this patient) healthcare proxy) however states that she often makes decisions along with Wanda Guy patient's niece because she is the 1 that knows everything about the patient's held as she is the 1 that takes him to appointments and is closer to him. In the near future she would currently asked give any type of decision making is made between her and her niece and she would appreciate if she often gets a phone call with an sales representative printing paper in a conference call so that they can both listen to what the providers have to say at the same time in that way there is no miscommunication or missed interpretation of the facts. Goals of care were discussed and she is adamant that no matter what, he is to remain full code and we are to do everything and anything necessary to keep him alive for now. The best contact number for the healthcare proxy Cheryl is [phone] preferred language is Scottish Contact number for the patient's niece Wanda Guy is [phone] preferred language is also Scottish Total time spent with this patient's family over the phone for 15 minutes. Problems Discussed (1) Ileus, unspecified:
[2021-09-24] MEDS: Atorvastatin Calcium 10 MG TABLET PO (21:30)
[2021-09-24] MEDS: Dabigatran Etexilate Mesylate 150 MG CAPSULE PO (21:30)
[2021-09-24 22:31] LABS: Anion Gap 17 (12-20); Blood Urea Nitrogen 13 mg/dL (9-16); Calcium 8.5 mg/dL (8.4-10.2); Carbon Dioxide 27 mmol/L (22-29); Chloride 96 mmol/L (96-108); Creatinine Clr Calc Pharmacy 88.7; Estimated Glomerular Filt Rate > 60; Glucose Random 184 mg/dL (60-115); Magnesium 2.3 mg/dL (1.6-2.6); Potassium 4.4 mmol/L (3.3-5.1); Sodium 136 mmol/L (135-145)
[2021-09-24 22:43] LABS: Troponin-I High Sensitivity 41.2 ng/L (<3.5-35.0)
[2021-09-24 22:45] LABS: Lactic Acid 3.4 mmol/L (0.5-2.0)
[2021-09-25] VITALS (32 sets, daily range): BP systolic 66–154; BP diastolic 29–92; PULSE 72–139; RESP 10–18; TEMP 32–37.6; O2SAT 82–97; BMI 40.3
[2021-09-25 00:09] LABS: Reflex Lactate? Lactic Acid Added
[2021-09-25 00:50] LABS: ~Lactic Acid-LAB USE ONLY 2.8 mmol/L (0.5-2.0)
[2021-09-25] MEDS: Mineral OiL enema 133 ML ENEMA PR (01:12)
[2021-09-25] MEDS: propofoL 1,000 MG/100 ML VIAL 36.06 MG IVCONT ×9 (01:30→21:14)
[2021-09-25] MEDS: levETIRAcetam in NaCl (iso-os) 1,000 MG/100 ML PIGGYBACK 400 MG IV ×2 (02:14→16:56)
[2021-09-25 02:29] LABS: Reflex Lactate? 2 Y
[2021-09-25 03:07] LABS: ~Lactic Acid-LAB USE ONLY 2.6 mmol/L (0.5-2.0)
[2021-09-25] MEDS: Albuterol Sulfate (0.083%) 2.5 MG/3 ML VIAL.NEB INHALE (05:12)
[2021-09-25 05:26] LABS: VBG Base Excess 8.4 mmol/L; VBG HCO3 36 mmol/L (22-26); VBG pCO2 68 mmHg; VBG pH 7.33 (7.32-7.43); VBG pO2 44 mmHg
[2021-09-25 05:32] LABS: Venous Blood Gas Refer to POC result
[2021-09-25 05:45] LABS: Hematocrit 31.9 % (42.0-52.0); Hemoglobin 10.3 g/dl (14.0-18.0); Mean Corpuscular HGB Conc 32.3 g/dl (31.0-36.0); Mean Corpuscular Hemoglobin 31.9 pg (27.0-33.0); Mean Corpuscular Volume 98.8 fL (80.0-98.0); Mean Platelet Volume 10.2 fL (9.4-12.4); Platelet Count 154 X10*3/uL (160-400); Red Blood Count 3.23 X10*6/uL (4.60-5.80); Red Cell Distribution Width 14.4 % (11.0-16.0); White Blood Count 14.6 X10*3/uL (4.8-10.8)
[2021-09-25] MEDS: Rocuronium Bromide 50 MG/5 ML VIAL IVPUSH (05:47)
[2021-09-25] MEDS: Metoprolol Tartrate 5 MG/5 ML VIAL IVPUSH ×3 (05:48→22:20)
[2021-09-25] MEDS: Pantoprazole Sodium 40 MG/10 ML VIAL IVPUSH ×2 (05:55→16:56)
[2021-09-25 05:58] LABS: Alanine Aminotransferase 33 U/L (0-40); Albumin Level 3.7 g/dL (3.5-5.0); Alkaline Phosphatase 64 U/L (39-117); Anion Gap 14 (12-20); Aspartate Amino Transferase 31 U/L (5-37); Bilirubin Total 0.9 mg/dL (0.0-1.0); Blood Urea Nitrogen 13 mg/dL (9-16); Calcium 8.7 mg/dL (8.4-10.2); Carbon Dioxide 32 mmol/L (22-29); Chloride 95 mmol/L (96-108); Creatinine Clr Calc Pharmacy 93.1; Estimated Glomerular Filt Rate > 60; Glucose Random 147 mg/dL (60-115); Magnesium 2.3 mg/dL (1.6-2.6); Phosphorus 3.9 mg/dL (2.7-4.5); Potassium 4.4 mmol/L (3.3-5.1); Sodium 137 mmol/L (135-145); Total Protein 6.1 g/dL (6.5-8.0)
[2021-09-25] MEDS: Piperacillin Sodium/Tazobactam 3.375 GM in 0.9 % Sodium Chloride 50 ML IV ×3 (06:00→16:55)
[2021-09-25 06:01] LABS: Vancomycin Random 8.8 mcg/mL (15-20)
[2021-09-25 06:12] LABS: Band Neutrophils Percent 9 % (3-5); Lymphocytes Absolute Manual 0.6 X10*3/uL (1.2-4.9); Lymphocytes Percent Manual 4 % (20-40); Monocytes Absolute Manual 0.4 X10*3/uL (0.1-1.2); Monocytes Percent Manual 3 % (2-11); Neutrophils Absolute Manual 13.6 X10*3/uL (2.0-8.3); Neutrophils Percent Manual 84 % (45-73)
[2021-09-25 06:14] LABS: Platelet Estimate NORMAL (NORMAL); RBC Morphology NORMAL
[2021-09-25 06:15] LABS: Platelet Morphology Comment NORMAL
[2021-09-25] MEDS: 0.9 % Sodium Chloride Flush 3 ML SYRINGE IVFLUSH ×2 (07:59→14:39)
--- NOTE | 2021-09-25 08:30 | HE.PHANOTE ---
PT cr improved, level 8.8, will give 1250 mg now, another level @0600 tomorrow
[2021-09-25] MEDS: Midazolam HCl/PF 2 MG/2 ML VIAL 4 MG IVPUSH ×2 (11:10→20:03)
--- NOTE | 2021-09-25 11:10 | MHC.CLN ---
RE: CONSULT PT IS INTUBATED AND SEDATED PT WITH INCREASED NUTRITION RISK R/T PRESSURE INJURY DIET RX: WILL CHANGE TO NPO IF TF NEEDED; RECOMMEND PROMOTE AT MAX GOAL RATE 60ML/HR TO PROVIDE 1200KCALS (2152KCALS WITH SEDATION; 30KCALS/KG), 75G PROTEIN (1.07G), 1007CC FREE WATER FROM FORMULA MONITOR TOLERANCE, RESIDUALS AND LYTES CONSIDER TPN R/T SBO AND EXTENDED NPO; CONSULT RD IF NEEDED SEE ALSO CLINICAL NUTRITION ASSESSMENT
[2021-09-25] MEDS: vancomycin HCL 1,250 MG in 0.9 % Sodium Chloride 250 ML 166.67 MG IV (11:33)
[2021-09-25] MEDS: Escitalopram Oxalate 20 MG TABLET PO (11:33)
[2021-09-25] MEDS: fentaNYL citrate/NS 1,000 MCG/100 ML PLAST..BAG 10 MCG IVCONT ×2 (11:33→21:12)
[2021-09-25] MEDS: Dabigatran Etexilate Mesylate 150 MG CAPSULE PO (11:33)
[2021-09-25] MEDS: Midazolam HCl/PF 2 MG/2 ML VIAL 5 MG IVPUSH (14:38)
[2021-09-25 15:12] LABS: B Type Natriuretic Peptide 356 pg/mL (<100); Troponin-I High Sensitivity 48.6 ng/L (<3.5-35.0)
--- NOTE | 2021-09-25 15:56 | EEG_ITS ---
This is a 16-channel EEG with an EKG lead. This EEG was performed in ICU. Patient was reported intubated, sedated and unresponsive. Background EEG rhythm was quite low amplitude with periodic sharp waves noted more so in the right hemisphere from left, but many times generalized. In between EEG is low amplitude devoid of normal waveforms. Hyperventilation was not performed and photic stimulation was not performed either. IMPRESSION: Abnormal EEG suggestive of bihemispheric dysfunction, but also either right hemispheric seizure focus or burst suppression pattern that could happen from severe anoxic encephalopathy. Clinical correlation is recommended. MD FELA Baron/DENZEL / [id number]
[2021-09-25] MEDS: Digoxin 0.5 MG/2 ML AMPUL 0.25 MG IVPUSH (16:56)
[2021-09-25] MEDS: Furosemide 40 MG/4 ML VIAL IVPUSH (16:56)
--- NOTE | 2021-09-25 17:33 | P.PNCC_ITS ---
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 and there was no arousability at all to deep pain although the patient was on sedation and when I started to note of focal seizure activity involving the rid the right face and right lower extremity predominantly I was concerned with the possibility that overnight he might very well of had unbeknownst nonconvulsive status epilepticus and him proceeded to give him IV Versed which would very briefly. To seizure activity would resume pretty promptly another dose and then leading me to the requirement for adding a 2nd drug to the Keppra which was Dilantin at to 2 g that also quiet it down the seizure activity again briefly requiring more IV benzodiazepine and with that we later came to the need for valproic acid initially started at 20 milligrams/kilogram and that seemed to quiet things down but still required additional doses through the night of IV Versed and then this morning another stat dose of valproic acid 250 mg and increased maintenance dose to 500 mg q.6 hourly and then increase in the Keppra to 1500 mg q.12 hourly and and again we we finally have attained quiet he was also very dyssynchronous with the with the ventilator with with marked prolongation of his ex for [place] time with extreme diaphragmatic effort some of the did dyssynchrony root was related to the seizure clearly think involving his diaphragm some of it I do believe with his with his marked generalized anasarca and his measured CVP at about I almost 20 I felt that the no clearly the was flow fluid overloaded and clinically in pulmonary edema and my bedside echo revealed diffuse hypokinesis of the left ventricle with a 30% ejection fraction in atrial fibrillation with an elevated heart rate so we treated the heart rate with digitalization and then attempted to diurese him and of course treated seizure activity which we felt would would help to slow down his heart rate make diastolic function somewhat improved all the stings did work the no to a degree but his CVP was slow to diminish EEG did show seizure activity and he was in status epilepticus but clearly had evidence of and encephalopathic background Critical Care Time (minutes): 60 Physical Exam Verdana 4l Vital Signs: Verdana 4d Verdana 4d Vital Signs: Verdana 4d Verdana 4Bd Last Vital Signs Verdana 4d Logistics Tech New 4d Logistics Tech New 4d Temp 98.8 F 09/25/21 16:00 Logistics Tech New 4d Pulse 116 H 09/25/21 17:00 Logistics Tech New 4d Resp 16 09/25/21 17:00 BP 96/36 L 09/25/21 17:00 Pulse Ox 90 L 09/25/21 17:00 BMI result Body Mass Index 40.3 sedated and intubated with left hemiparesis and on again off again focal right-sided seizure activity was noted clearly dysfunctional right and left ventricle with 30% ejection fraction and significant dilatation of the inferior vena cava lungs with bilateral wheeze and the significant diaphragmatic effort abdomen significantly distended but repeat KUB showed no free air and he was placed on suction for his OG tube which was moderately productive significant diffuse anasarca but no visible free fluid on CT scan of the abdomen Objective Data Labs CBC & Chem 7: 09/26/21 04:58 09/26/21 04:58 Labs: Laboratory Results - last 24 hr 09/24/21 09/24/21 09/24/21 21:55 21:55 21:55 WBC RBC Hgb Hct MCV MCH MCHC RDW Plt Count MPV Immature Gran % (Auto) Neut % (Auto) Lymph % (Auto) Teller % (Auto) Eos % (Auto) Baso % (Auto) Lymph # (Auto) [place] # (Auto) Eos # (Auto) Baso # (Auto) Abs Immat Gran (auto) Absolute Neuts (auto) Absolute Nucleated RBC Nucleated RBC % (auto) Neutrophils % (Manual) Band Neutrophils % Lymphocytes % (Manual) Monocytes % (Manual) Abs Neuts (Manual) Lymphocytes # (Manual) Monocytes # (Manual) Platelet Estimate Plt Morphology Comment RBC Morphology VBG pH VBG pCO2 VBG pO2 VBG HCO3 VBG O2 Saturation VBG Base Excess Sodium 136 Potassium 4.4 Chloride 96 Carbon Dioxide 27 Anion Gap 17 BUN 13 Creatinine 1.06 Estim Creat Clear Calc 88.7 Estimated GFR > 60 Random Glucose 184 H Lactic Acid 3.4 H* Lactic Acid F/U @ 2Hr Lactic Acid F/U @ 4Hr Calcium 8.5 Phosphorus Magnesium 2.3 Total Bilirubin AST ALT Alkaline Phosphatase Troponin I High Sens 41.2 H D B-Natriuretic Peptide Total Protein Albumin Random Vancomycin 09/25/21 09/25/21 09/25/21 00:25 02:45 05:15 WBC RBC Hgb Hct MCV MCH MCHC RDW Plt Count MPV Immature Gran % (Auto) Neut % (Auto) Lymph % (Auto) [place] % (Auto) Eos % (Auto) Baso % (Auto) Lymph # (Auto) [place] # (Auto) Eos # (Auto) Baso # (Auto) Abs Immat Gran (auto) Absolute Neuts (auto) Absolute Nucleated RBC Nucleated RBC % (auto) Neutrophils % (Manual) Band Neutrophils % Lymphocytes % (Manual) Monocytes % (Manual) Abs Neuts (Manual) Lymphocytes # (Manual) Monocytes # (Manual) Platelet Estimate Plt Morphology Comment RBC Morphology VBG pH VBG pCO2 VBG pO2 VBG HCO3 VBG O2 Saturation VBG Base Excess Sodium Potassium Chloride Carbon Dioxide Anion Gap BUN Creatinine Estim Creat Clear Calc Estimated GFR Random Glucose Lactic Acid Lactic Acid F/U @ 2Hr 2.8 H* Lactic Acid F/U @ 4Hr 2.6 H* Calcium Phosphorus Magnesium Total Bilirubin AST ALT Alkaline Phosphatase Troponin I High Sens B-Natriuretic Peptide Total Protein Albumin Random Vancomycin 8.8 L 09/25/21 09/25/21 09/25/21 05:15 05:15 05:16 WBC 14.6 H RBC 3.23 L Hgb 10.3 L Hct 31.9 L MCV 98.8 H MCH 31.9 MCHC 32.3 RDW 14.4 Plt Count 154 L MPV 10.2 Immature Gran % (Auto) Cancelled Neut % (Auto) Cancelled Lymph % (Auto) Cancelled Teller % (Auto) Cancelled Eos % (Auto) Cancelled Baso % (Auto) Cancelled Lymph # (Auto) Cancelled Teller # (Auto) Cancelled Eos # (Auto) Cancelled Baso # (Auto) Cancelled Abs Immat Gran (auto) Cancelled Absolute Neuts (auto) Cancelled Absolute Nucleated RBC 0.000 Nucleated RBC % (auto) 0.0 Neutrophils % (Manual) 84 H Band Neutrophils % 9 H Lymphocytes % (Manual) 4 L Monocytes % (Manual) 3 Abs Neuts (Manual) 13.6 H Lymphocytes # (Manual) 0.6 L Monocytes # (Manual) 0.4 Platelet Estimate NORMAL Plt Morphology Comment NORMAL RBC Morphology NORMAL VBG pH 7.33 VBG pCO2 68 VBG pO2 44 VBG HCO3 36 H VBG O2 Saturation 72.0 VBG Base Excess 8.4 Sodium 137 Potassium 4.4 Chloride 95 L Carbon Dioxide 32 H Anion Gap 14 BUN 13 Creatinine 1.01 Estim Creat Clear Calc 93.1 Estimated GFR > 60 Random Glucose 147 H Lactic Acid Lactic Acid F/U @ 2Hr Lactic Acid F/U @ 4Hr Calcium 8.7 Phosphorus 3.9 Magnesium 2.3 Total Bilirubin 0.9 AST 31 ALT 33 Alkaline Phosphatase 64 Troponin I High Sens B-Natriuretic Peptide Total Protein 6.1 L Albumin 3.7 Random Vancomycin 09/25/21 14:46 WBC RBC Hgb Hct MCV MCH MCHC RDW Plt Count MPV Immature Gran % (Auto) Neut % (Auto) Lymph % (Auto) [place] % (Auto) Eos % (Auto) Baso % (Auto) Lymph # (Auto) Teller # (Auto) Eos # (Auto) Baso # (Auto) Abs Immat Gran (auto) Absolute Neuts (auto) Absolute Nucleated RBC Nucleated RBC % (auto) Neutrophils % (Manual) Band Neutrophils % Lymphocytes % (Manual) Monocytes % (Manual) Abs Neuts (Manual) Lymphocytes # (Manual) Monocytes # (Manual) Platelet Estimate Plt Morphology Comment RBC Morphology VBG pH VBG pCO2 VBG pO2 VBG HCO3 VBG O2 Saturation VBG Base Excess Sodium Potassium Chloride Carbon Dioxide Anion Gap BUN Creatinine Estim Creat Clear Calc Estimated GFR Random Glucose Lactic Acid Lactic Acid F/U @ 2Hr Lactic Acid F/U @ 4Hr Calcium Phosphorus Magnesium Total Bilirubin AST ALT Alkaline Phosphatase Troponin I High Sens 48.6 H B-Natriuretic Peptide 356 H Total Protein Albumin Random Vancomycin Microbiology Microbiology Results: Microbiology 09/24/21 04:50 Urine Catheterized - Pacheco Catheter Urine Culture - Final No growth. 09/20/21 22:37 Blood - Venous Blood Culture - Preliminary No growth after 48 hours. 09/20/21 22:31 Blood - Venous Blood Culture - Preliminary No growth after 48 hours. Progress Note: A&P Assessment and plan (1) Ileus, unspecified: Status: Acute (2) Chest pain: Status: Acute (3) Cellulitis: Status: Acute (4) Chronic atrial fibrillation: Status: Acute (5) BPH w urinary obs/LUTS: Status: Acute (6) Hemiparesis, left: Status: Acute (7) Acute exacerbation of CHF (congestive heart failure): Status: Acute (8) Acute on chronic anemia: Status: Acute (9) Chronic HFrEF (heart failure with reduced ejection fraction): Status: Acute (10) Cardiomyopathy: Status: Acute (11) Obesity: Status: Acute (12) HTN (hypertension): Status: Acute (13) Hypoxemic respiratory failure, chronic: Status: Acute (14) Aspiration pneumonitis: Status: Acute (15) Acute anoxic encephalopathy: Status: Acute Plan at this point the prognosis of course is guarded as he had the prolonged anoxic event during his 17 minute resuscitation and at an unknown amount of hypoxic damage of from a status epilepticus so at this point we continue to support on the ventilator we now have him on a combination of valproic acid and Keppra and Dilantin along with a Versed and propofol drip for seizure activity control and if we need controlled hypothermia will apply that for the for now and will continue to treat his congestive cardiomyopathy all these fringe issues follow his abdominal function as well as best we can clinically and and to continue to treat his aspiration pneumonitis Quality Stroke Does the patient have a stroke diagnosis?: No VTE Prior VTE?: No VTE Risk Level:: Medical - moderate - high VTE Device Contraindication: Treatment Not Indicated VTE Drug Contraindication: N/A - Med Ordered
[2021-09-25] MEDS: Furosemide 200 MG in 0.9 % Sodium Chloride 80 ML IVCONT (18:01)
[2021-09-25] MEDS: Albuterol/Iprat 2.5/0.5MG 3 ML AMPUL.NEB INHALE ×3 (18:07→19:38)
[2021-09-25] MEDS: Midazolam HCl/NS 50 MG/50 ML PLAST..BAG IVCONT (20:09)
[2021-09-25] MEDS: Atorvastatin Calcium 10 MG TABLET PO (20:18)
[2021-09-25] MEDS: Midazolam HCl/PF 2 MG/2 ML VIAL 5 MG IM (21:00)
[2021-09-25] MEDS: levETIRAcetam in NaCl (iso-os) 1,500 MG/100 ML PIGGYBACK 400 MG IV (21:07)
[2021-09-26] VITALS (35 sets, daily range): BP systolic 100–153; BP diastolic 46–79; PULSE 69–123; RESP 18; TEMP 33.5–37.2; O2SAT 79–134
[2021-09-26] MEDS: Albuterol/Iprat 2.5/0.5MG 3 ML AMPUL.NEB INHALE ×5 (00:06→23:57)
[2021-09-26] MEDS: propofoL 1,000 MG/100 ML VIAL 36.06 MG IVCONT ×6 (00:11→12:33)
[2021-09-26] MEDS: Piperacillin Sodium/Tazobactam 3.375 GM in 0.9 % Sodium Chloride 50 ML IV ×2 (00:17→06:11)
[2021-09-26] MEDS: Midazolam HCl/NS 50 MG/50 ML PLAST..BAG IVCONT ×4 (03:17→22:38)
[2021-09-26 05:06] LABS: VBG Base Excess 4.6 mmol/L; VBG HCO3 29 mmol/L (22-26); VBG pCO2 44 mmHg; VBG pH 7.42 (7.32-7.43); VBG pO2 51 mmHg
[2021-09-26 05:11] LABS: MANUAL DIFF FLAG NO
[2021-09-26 05:19] LABS: Basophils Percent Auto 0.2 % (0-2); Eosinophils Absolute Auto 0.2 X10*3/uL (0.0-0.4); Hematocrit 30.9 % (42.0-52.0); Hemoglobin 9.8 g/dl (14.0-18.0); Imm Gran Abs Auto 0.21 X10*3/uL (0.00-0.03); Imm Gran Pct Auto 1.3 % (0.0-0.4); Lymphocytes Absolute Auto 1.2 X10*3/uL (1.2-4.9); Lymphocytes Percent Auto 7.5 % (20-40); Mean Corpuscular HGB Conc 31.7 g/dl (31.0-36.0); Mean Corpuscular Hemoglobin 31.6 pg (27.0-33.0); Mean Corpuscular Volume 99.7 fL (80.0-98.0); Mean Platelet Volume 9.8 fL (9.4-12.4); Monocytes Absolute Auto 0.9 X10*3/uL (0.1-1.2); Monocytes Percent Auto 5.8 % (2-11); Neutrophils Absolute Auto 13.6 x10*3/uL (2.0-8.3); Neutrophils Percent Auto 84.2 % (45-73); Platelet Count 171 X10*3/uL (160-400); Red Cell Distribution Width 14.8 % (11.0-16.0); Venous Blood Gas Refer to POC result; White Blood Count 16.2 X10*3/uL (4.8-10.8)
[2021-09-26 05:34] LABS: INTERNATIONAL NORM RATIO 1.6 (0.9-1.1)
[2021-09-26 05:36] LABS: Partial Thromboplastin Time 37.1 SEC (24.1-38.0)
[2021-09-26 05:39] LABS: B Type Natriuretic Peptide 351 pg/mL (<100); Troponin-I High Sensitivity 38.8 ng/L (<3.5-35.0); Vancomycin Random 12.7 mcg/mL (15-20)
[2021-09-26 05:44] LABS: Alanine Aminotransferase 31 U/L (0-40); Albumin Level 3.5 g/dL (3.5-5.0); Alkaline Phosphatase 69 U/L (39-117); Anion Gap 16 (12-20); Aspartate Amino Transferase 37 U/L (5-37); Bilirubin Direct 0.8 mg/dL (0.0-0.5); Bilirubin Total 1.2 mg/dL (0.0-1.0); Blood Urea Nitrogen 17 mg/dL (9-16); Calcium 8.1 mg/dL (8.4-10.2); Carbon Dioxide 29 mmol/L (22-29); Chloride 98 mmol/L (96-108); Creatinine Clr Calc Pharmacy 64.4; Estimated Glomerular Filt Rate 49; Glucose Random 144 mg/dL (60-115); Phosphorus 2.5 mg/dL (2.7-4.5); Potassium 4.2 mmol/L (3.3-5.1); Sodium 139 mmol/L (135-145); Total Protein 6.1 g/dL (6.5-8.0)
[2021-09-26] MEDS: Pantoprazole Sodium 40 MG/10 ML VIAL IVPUSH ×2 (06:13→14:49)
[2021-09-26] MEDS: fentaNYL citrate/NS 1,000 MCG/100 ML PLAST..BAG 10 MCG IVCONT (07:50)
[2021-09-26] MEDS: levETIRAcetam in NaCl (iso-os) 1,500 MG/100 ML PIGGYBACK 400 MG IV ×2 (08:01→22:15)
[2021-09-26] MEDS: Phenytoin Sodium 100 MG/2 ML VIAL IV ×2 (08:46→15:55)
[2021-09-26] MEDS: cefEPime HCl 1 GM in 0.9 % Sodium Chloride 50 ML IV ×2 (10:24→22:14)
--- NOTE | 2021-09-26 10:38 | HE.PHANOTE ---
Pt cr increased, pt in random for 1700 and cr
[2021-09-26] MEDS: Valproic Acid (as Sodium Salt) 250 MG in Dextrose 5 % 50 ML 52.5 MG IV ×2 (11:19→13:03)
[2021-09-26 11:59] LABS: Valproate 54.8 mcg/mL (50.0-100.0)
--- NOTE | 2021-09-26 12:06 | MHC.CM.PN ---
Patient remains intubated/vented in ICU. Patient was admitted on 09/20 for cellulitis with possible ileus. Patient went for KUB on 09/24, started vomitting, aspirated and went into cardiac arrest. Resuscitation took 17 mins. Patient was intubated/vented at that time. Prior to admission, patient had left sided hemiparesis d/t CVA. Patient know experiencing seizures that requires 3 anti-seizure meds. Per Dr Newby, patient's prognosis is very poor. Family continues to want patient to be a full code. Continue to monitor for d/c needs.
[2021-09-26] MEDS: Furosemide 200 MG in 0.9 % Sodium Chloride 80 ML IVCONT (12:32)
[2021-09-26] MEDS: Metoprolol Tartrate 5 MG/5 ML VIAL IVPUSH (13:24)
--- NOTE | 2021-09-26 15:33 | P.PNCC_ITS ---
Subjective Subjective Date of Service: 09/26/21 Interval History: 66-year-old morbidly obese male with underlying congestive cardiomyopathy chronic atrial fibrillation complaining of abdominal pain had a witnessed large volume aspiration with acute hypoxic respiratory failure and a cardio respiratory arrest 17 minutes of probable anoxic damage and and then followed by a probable nonconvulsive as well as focally convulsive status epilepticus finally combination of 3 antiepileptic drugs and and and propofol and and Versed and the finally seemed to have quieted down the seizure activity and on a Lasix drip his heart failure is clinically improving with secondary reduction of his elevated heart rate and blood pressure improving he is off all pressors his FiO2 requirements and minute ventilatory requirements are diminishing and he is much more synchronous with the ventilator as a result and I believe this is resolution of pulmonary edema but he still has considerable anasarca and total body volume overload so will treat that F course as it comes and we will obtain drug levels of both of valproic acid as well as the Dilantin to gauge his maintenance doses of these medicines an and once we get to a point where he has got minimal FiO2 and minute ventilatory requirements we will stop sedation and evaluate for cognitive function which would really give us the best gauge of his prognosis and we might get a repeat on his EEG also to document as well as degree of encephalopathy how well we we over a keto [place] the status epilepticus issue Critical Care Time (minutes): 45 Physical Exam Verdana 4l Vital Signs: Verdana 4d Verdana 4d Vital Signs: Verdana 4d Verdana 4Bd Last Vital Signs Verdana 4d Corporate Compliance Officer New 4d Corporate Compliance Officer New 4d Temp 99.0 F 09/26/21 15:00 Corporate Compliance Officer New 4d Pulse 98 09/26/21 15:00 Corporate Compliance Officer New 4d Resp 18 09/26/21 15:00 BP 100/50 L 09/26/21 15:00 Pulse Ox 98 09/26/21 15:00 BMI result Body Mass Index 40.3 left hemiparesis and as we wean his sedation he still remains unresponsive even to pain clinically CVP is down from 20 to 10 markedly improved as he continues to diurese and will follow renal function abdomen is much softer than it had been and the degree of NG aspirate is also significantly diminished lungs without adventitious sounds and no longer has diaphragmatic effort Objective Data Labs CBC & Chem 7: 09/26/21 04:58 09/26/21 04:58 Labs: Laboratory Results - last 24 hr 09/26/21 09/26/21 09/26/21 04:58 04:58 04:58 WBC 16.2 H RBC 3.10 L Hgb 9.8 L Hct 30.9 L MCV 99.7 H MCH 31.6 MCHC 31.7 RDW 14.8 Plt Count 171 MPV 9.8 Immature Gran % (Auto) 1.3 H Neut % (Auto) 84.2 H Lymph % (Auto) 7.5 L [place] % (Auto) 5.8 Eos % (Auto) 1.0 Baso % (Auto) 0.2 Lymph # (Auto) 1.2 [place] # (Auto) 0.9 Eos # (Auto) 0.2 Baso # (Auto) 0.0 Abs Immat Gran (auto) 0.21 H Absolute Neuts (auto) 13.6 H Absolute Nucleated RBC 0.000 Nucleated RBC % (auto) 0.0 PT 18.0 H INR 1.6 H APTT 37.1 VBG pH VBG pCO2 VBG pO2 VBG HCO3 VBG O2 Saturation VBG Base Excess Sodium Potassium Chloride Carbon Dioxide Anion Gap BUN Creatinine Estim Creat Clear Calc Estimated GFR Random Glucose Calcium Phosphorus Magnesium Total Bilirubin Direct Bilirubin AST ALT Alkaline Phosphatase Troponin I High Sens B-Natriuretic Peptide Total Protein Albumin Random Vancomycin 12.7 L Valproic Acid 09/26/21 09/26/21 09/26/21 04:58 04:58 05:00 WBC RBC Hgb Hct MCV MCH MCHC RDW Plt Count MPV Immature Gran % (Auto) Neut % (Auto) Lymph % (Auto) [place] % (Auto) Eos % (Auto) Baso % (Auto) Lymph # (Auto) [place] # (Auto) Eos # (Auto) Baso # (Auto) Abs Immat Gran (auto) Absolute Neuts (auto) Absolute Nucleated RBC Nucleated RBC % (auto) PT INR APTT VBG pH 7.42 VBG pCO2 44 VBG pO2 51 VBG HCO3 29 H VBG O2 Saturation 81.0 VBG Base Excess 4.6 Sodium 139 Potassium 4.2 Chloride 98 Carbon Dioxide 29 Anion Gap 16 BUN 17 H Creatinine 1.46 H Estim Creat Clear Calc 64.4 Estimated GFR 49 Random Glucose 144 H Calcium 8.1 L D Phosphorus 2.5 L Magnesium 2.0 Total Bilirubin 1.2 H Direct Bilirubin 0.8 H AST 37 ALT 31 Alkaline Phosphatase 69 Troponin I High Sens 38.8 H B-Natriuretic Peptide 351 H Total Protein 6.1 L Albumin 3.5 Random Vancomycin Valproic Acid 09/26/21 11:15 WBC RBC Hgb Hct MCV MCH MCHC RDW Plt Count MPV Immature Gran % (Auto) Neut % (Auto) Lymph % (Auto) [place] % (Auto) Eos % (Auto) Baso % (Auto) Lymph # (Auto) [place] # (Auto) Eos # (Auto) Baso # (Auto) Abs Immat Gran (auto) Absolute Neuts (auto) Absolute Nucleated RBC Nucleated RBC % (auto) PT INR APTT VBG pH VBG pCO2 VBG pO2 VBG HCO3 VBG O2 Saturation VBG Base Excess Sodium Potassium Chloride Carbon Dioxide Anion Gap BUN Creatinine Estim Creat Clear Calc Estimated GFR Random Glucose Calcium Phosphorus Magnesium Total Bilirubin Direct Bilirubin AST ALT Alkaline Phosphatase Troponin I High Sens B-Natriuretic Peptide Total Protein Albumin Random Vancomycin Valproic Acid 54.8 Microbiology Microbiology Results: Microbiology 09/26/21 08:39 Sputum - Suctioned Gram Stain - Final 09/20/21 22:37 Blood - Venous Blood Culture - Final No growth after 5 days. 09/20/21 22:31 Blood - Venous Blood Culture - Final No growth after 5 days. 09/24/21 16:53 Blood - Venous Blood Culture - Preliminary No growth after 24 hours. 09/24/21 16:53 Blood - Venous Blood Culture - Preliminary No growth after 24 hours. 09/24/21 04:50 Urine Catheterized - Pacheco Catheter Urine Culture - Final No growth. Progress Note: A&P Assessment and plan (1) Acute anoxic encephalopathy: Status: Acute (2) Aspiration pneumonitis: Status: Acute (3) Hypoxemic respiratory failure, chronic: Status: Acute (4) Ileus, unspecified: Status: Acute (5) Chest pain: Status: Acute (6) Cellulitis: Status: Acute (7) Chronic atrial fibrillation: Status: Acute (8) BPH w urinary obs/LUTS: Status: Acute (9) Hemiparesis, left: Status: Acute (10) Acute exacerbation of CHF (congestive heart failure): Status: Acute (11) Acute on chronic anemia: Status: Acute (12) Pancreatitis: Status: Acute (13) Chronic HFrEF (heart failure with reduced ejection fraction): Status: Acute (14) Cardiomyopathy: Status: Acute (15) Bradycardia: Status: Acute (16) Obesity: Status: Acute (17) HTN (hypertension): Status: Acute Plan so the the plan therefore is to check levels on the medications for seizure activity digoxin when needed for his heart rate if he remains free of seizure activity we will get an EEG to confirm and we we can consider and the next day or 2 if this all remains stable weaning his sedation and evaluating cognitive function Quality Stroke Does the patient have a stroke diagnosis?: No VTE Prior VTE?: No VTE Risk Level:: Medical - moderate - high VTE Device Contraindication: Treatment Not Indicated VTE Drug Contraindication: N/A - Med Ordered
[2021-09-26 16:27] LABS: Phenytoin Dilantin 6.1 ug/mL (10.0-20.0)
[2021-09-26 16:33] LABS: COVID-19 Test Negative (Negative); IDNOW Serial# 9DD0AD1C
[2021-09-26] MEDS: propofoL 1,000 MG/100 ML VIAL 28.85 MG IVCONT ×3 (17:08→22:15)
[2021-09-26] MEDS: Clindamycin Phosphate/D5W 600 MG/50 ML PIGGYBACK 100 MG IV (17:10)
[2021-09-26 18:10] LABS: Estimated Glomerular Filt Rate > 60
[2021-09-26] MEDS: Valproic Acid (as Sodium Salt) 500 MG in Dextrose 5 % 50 ML 52.5 MG IV (19:17)
[2021-09-26] MEDS: fentaNYL citrate/NS 1,000 MCG/100 ML PLAST..BAG 7.5 MCG IVCONT (19:18)
[2021-09-27] VITALS (33 sets, daily range): BP systolic 85–140; BP diastolic 46–73; PULSE 85–142; RESP 17–18; TEMP 33–38.5; O2SAT 84–96
--- NOTE | 2021-09-27 | EEG_ITS ---
This is a 16-channel portable EEG performed in ICU. Patient is intubated and sedated. Background EEG rhythm is low amplitude and slow with almost continuous and intermittent bilateral anterior, but more so in the right frontal central area, sharp and slow wave complexes. Cardiac lead revealed tachycardia. Otherwise, no significant finding was noted. IMPRESSION: Abnormal EEG suggestive of right central partial status epilepticus. MD FELA Baron/DENZEL / [id number]
[2021-09-27] MEDS: propofoL 1,000 MG/100 ML VIAL 28.85 MG IVCONT ×3 (00:31→05:27)
[2021-09-27] MEDS: Valproic Acid (as Sodium Salt) 500 MG in Dextrose 5 % 50 ML 52.5 MG IV ×4 (00:33→20:31)
[2021-09-27] MEDS: Clindamycin Phosphate/D5W 600 MG/50 ML PIGGYBACK 100 MG IV ×5 (00:34→23:42)
[2021-09-27] MEDS: fentaNYL citrate/NS 1,000 MCG/100 ML PLAST..BAG 7.5 MCG IVCONT (02:51)
[2021-09-27 05:25] LABS: VBG Base Excess 10.7 mmol/L; VBG HCO3 34 mmol/L (22-26); VBG pCO2 40 mmHg; VBG pH 7.53 (7.32-7.43); VBG pO2 45 mmHg
[2021-09-27 05:30] LABS: Venous Blood Gas Refer to POC result
[2021-09-27 05:31] LABS: MANUAL DIFF FLAG NO
[2021-09-27 05:40] LABS: Basophils Percent Auto 0.2 % (0-2); Eosinophils Absolute Auto 0.3 X10*3/uL (0.0-0.4); Eosinophils Percent Auto 2.6 % (0-4); Hematocrit 27.3 % (42.0-52.0); Imm Gran Abs Auto 0.11 X10*3/uL (0.00-0.03); Imm Gran Pct Auto 0.9 % (0.0-0.4); Lymphocytes Percent Auto 8.8 % (20-40); Mean Corpuscular Hemoglobin 32.4 pg (27.0-33.0); Mean Corpuscular Volume 98.2 fL (80.0-98.0); Monocytes Absolute Auto 0.9 X10*3/uL (0.1-1.2); Monocytes Percent Auto 7.5 % (2-11); Neutrophils Absolute Auto 9.5 x10*3/uL (2.0-8.3); Platelet Count 143 X10*3/uL (160-400); Red Blood Count 2.78 X10*6/uL (4.60-5.80); Red Cell Distribution Width 14.7 % (11.0-16.0); White Blood Count 11.8 X10*3/uL (4.8-10.8)
[2021-09-27] MEDS: Pantoprazole Sodium 40 MG/10 ML VIAL IVPUSH ×2 (05:41→17:01)
[2021-09-27 05:47] LABS: INTERNATIONAL NORM RATIO 1.7 (0.9-1.1); Prothrombin Time 19.3 SEC (9.9-13.0)
[2021-09-27 05:49] LABS: Partial Thromboplastin Time 31.6 SEC (24.1-38.0)
[2021-09-27 05:56] LABS: B Type Natriuretic Peptide 608 pg/mL (<100)
[2021-09-27 05:58] LABS: Alanine Aminotransferase 26 U/L (0-40); Albumin Level 3.1 g/dL (3.5-5.0); Alkaline Phosphatase 65 U/L (39-117); Anion Gap 12 (12-20); Aspartate Amino Transferase 42 U/L (5-37); Bilirubin Direct 0.9 mg/dL (0.0-0.5); Bilirubin Total 1.3 mg/dL (0.0-1.0); Blood Urea Nitrogen 14 mg/dL (9-16); Calcium 7.9 mg/dL (8.4-10.2); Carbon Dioxide 32 mmol/L (22-29); Chloride 100 mmol/L (96-108); Creatinine Clr Calc Pharmacy 86.3; Estimated Glomerular Filt Rate > 60; Glucose Random 104 mg/dL (60-115); Magnesium 1.8 mg/dL (1.6-2.6); Phosphorus 2.1 mg/dL (2.7-4.5); Potassium 2.7 mmol/L (3.3-5.1); Sodium 141 mmol/L (135-145); Total Protein 5.3 g/dL (6.5-8.0)
[2021-09-27] MEDS: Chlorhexidine Gluc Oral Rinse 15 ML MOUTHWASH BUCCAL ×3 (09:18→20:08)
[2021-09-27] MEDS: levETIRAcetam in NaCl (iso-os) 1,500 MG/100 ML PIGGYBACK 400 MG IV ×2 (09:18→20:31)
[2021-09-27] MEDS: Potassium Chloride/H20 40 MEQ/100 ML PIGGYBACK 50 MEQ IV ×2 (09:18→11:01)
[2021-09-27] MEDS: Phenytoin Sodium 100 MG/2 ML VIAL IV ×2 (09:18→16:59)
[2021-09-27] MEDS: cefEPime HCl 1 GM in 0.9 % Sodium Chloride 50 ML IV ×2 (09:18→20:31)
[2021-09-27] MEDS: 0.9 % Sodium Chloride Flush 3 ML SYRINGE IVFLUSH ×2 (09:19→16:56)
[2021-09-27] MEDS: propofoL 1,000 MG/100 ML VIAL 14.42 MG IVCONT (09:21)
[2021-09-27] MEDS: Nystatin Powder 15 GM BOTTLE 1 APPL TOPICAL (09:21)
[2021-09-27] MEDS: Midazolam HCl/NS 50 MG/50 ML PLAST..BAG IVCONT ×2 (09:22→15:39)
--- NOTE | 2021-09-27 10:06 | P.CDIC_ITS ---
CDI Concurrent Query Documentation Clarification: PHYSICIAN'S DOCUMENTATION REQUEST Date of Query: 09/27/21 1007 Patient Name: Chandra Tang Admit Date: 09/20/21 Dear Doctor, A review of the medical record indicates additional documentation may be needed. Please review below and update the documentation accordingly. Risk Factors/Clinical Indicators/Treatments Surgery note 09/24 - Early am c/o abdo pain, distention and nausea, while in xray had large vomitus, went into cardiac arrest, 3 rounds of Epi, 17 min CPR then Vfib, Shock and ROSC, pressors and no urine output. ICU note 09/24 - Lactate use of ventilator and hypotension all 2nd to cardiac arrest. Sirs, shock post aspiration and now may be septic. Based on the above, could you clarify in the Progress Notes the appropriate diagnosis, if significant, that supports the above abnormalities and additional evaluation, monitoring, and/or treatment rendered: Shock * Cardiogenic Shock * Septic Shock * Shock due to other etiology * Other (please specify) * Unable to determine Use of terms such as suspected, likely, concern for, or probable (associated with a specific diagnosis that is being evaluated, monitored, or treated as if it exists) are acceptable and can be coded in the inpatient setting, when documented at the time of discharge. Thank you, Dayanna Soares [facility], CDIS Extension: [phone] Please use your independent medical judgment in providing your response. THIS QUERY IS PART OF THE PERMANENT MEDICAL RECORD Provider Response: Acute on Chronic Diastolic and/or Systolic CHF Other Diagnosis: cardiogenic shock following CPR with prolonged hypoxia
--- NOTE | 2021-09-27 10:10 | PC.NURSE ---
Patient has stage 2 to right buttocks-Triad being applied with foam dressing. DTI to left buttock-EPC barrier cream applied. And also a venous ulcer to left borrego. Hydrofera blue applied covered with foam. No other skin issues noted at this time.
--- NOTE | 2021-09-27 10:23 | P.CDIC_ITS ---
CDI Concurrent Query Documentation Clarification: PHYSICIAN'S DOCUMENTATION REQUEST Date of Query: 09/27/21 1023 Patient Name: Chandra Tang Admit Date: 09/20/21 Dear Doctor, A review of the medical record indicates additional documentation may be needed. Please review below and update the documentation accordingly. Risk Factors/Clinical Indicators/Treatments ICU 09/24 - Impression - Left cellulitis, SIRS, shock post aspiration, now may be septic, BC's pending, continue Vancomycin and Zosyn, IV fluids. WBC 20.6 Temp 96.4 LA 8.0 HR 102 ICU note 09/24 - no suspicion of Sepsis. Please clarify which of the following most accurately describes the above abnormalities: Sepsis treat, rule out, resolved, poa: * Sepsis * Systemic manifestations of infection, with 2 or more SIRS criteria which include: -Fever > 100.4F or hypothermia < 96.8 F -Leukocytosis - WBC > 12,000 or leukopenia, WBC < 4,000 or > 10% bands -Tachycardia > 90 beats/minute -Tachypnea - RR > 20 breaths/minute or PaCO2 < 32mmHg (Source: Merck Manual 2013) * Indicate the knows or suspected organism * Indicate the known or suspected underlying infection, such as UTI, pneumonia, or cellulitis * Indicate if a suspected bacteria infection of unknown source * Indicate if associated with an implanted device such as a F/C, PICC line, orthopedic hardware, etc * Indicate if there is associated organ dysfunction, such as renal or respiratory failure * Other * Unable to determine Use of terms such as suspected, likely, concern for, or probable (associated with a specific diagnosis that is being evaluated, monitored, or treated as if it exists) are acceptable and can be coded in the inpatient setting, when documented at the time of discharge. I do not agree with sepsis on that date rapid a. fib.and WBC etc. based on status epilepticus and aspiration Thank you, Dayanna Soares [facility], CDIS Extension: [phone] Please use your independent medical judgment in providing your response. THIS QUERY IS PART OF THE PERMANENT MEDICAL RECORD Provider Response: Acute Respiratory Failure
--- NOTE | 2021-09-27 10:58 | MHC.CLN ---
F/U PT REMAINS INTUBATED AND SEDATED PT WITH PLANNED SEDATION VACATION TO ASSESS COGNITIVE FUNCTION DISCUSSED AT ROUNDS WITH DIET RX: DAY 3 OF NPO IF TF NEEDED; RECOMMEND PROMOTE AT MAX GOAL RATE 60ML/HR TO PROVIDE 1200KCALS, 75G PROTEIN (1.07G), 1007CC FREE WATER FROM FORMULA MONITOR TOLERANCE, RESIDUALS AND LYTES CONSIDER TPN R/T SBO AND EXTENDED NPO; CONSULT RD IF NEEDED
[2021-09-27] MEDS: Furosemide 200 MG in 0.9 % Sodium Chloride 80 ML IVCONT (11:01)
[2021-09-27] MEDS: Albuterol/Iprat 2.5/0.5MG 3 ML AMPUL.NEB INHALE ×2 (11:29→17:01)
[2021-09-27 13:15] LABS: Anion Gap 14 (12-20); Blood Urea Nitrogen 15 mg/dL (9-16); Carbon Dioxide 31 mmol/L (22-29); Chloride 101 mmol/L (96-108); Creatinine Clr Calc Pharmacy 83.2; Estimated Glomerular Filt Rate > 60; Glucose Random 97 mg/dL (60-115); Potassium 3.2 mmol/L (3.3-5.1); Sodium 143 mmol/L (135-145)
--- NOTE | 2021-09-27 14:27 | MHC.CM.PN ---
Patient remains intubated/vented in ICU. Repeat EEG ordered for today. Per Dr Newby, poor prognosis for this patient. Family still wants patient to be a full code. Continue to monitor for d/c needs.
[2021-09-27] MEDS: levETIRAcetam in NaCl (iso-os) 500 MG/100 ML PIGGYBACK 400 MG IV (16:21)
[2021-09-27] MEDS: Digoxin 0.5 MG/2 ML AMPUL 0.25 MG IVPUSH (16:56)
[2021-09-27] MEDS: LORazepam 2 MG/ML VIAL 4 MG IVPUSH (17:08)
--- NOTE | 2021-09-27 17:17 | P.PNCC_ITS ---
Subjective Subjective Date of Service: 09/27/21 Interval History: 66-year-old with witnessed large volume emesis and aspiration with immediate hypoxic respiratory failure 17 minute CPR restoring circulation no post resuscitation hypothermia treatment who then probably spent the night in in nonconvulsive status epilepticus now on a combination of 3 antiepileptic drugs at maximum doses as well as being sedated with both propofol and Versed drips still breakthrough with what appears to be generalized seizure activity because it affects the ventilator we could see movement in both eyes as well as his right lower extremity and right face and ultimately no response to additional IV Ativan at high-dose so we went with upping the no all of his medications today and the EEG is implying that he has in no repeated burst activity but with some periods of normal C in between so it is less difficult appearing then than it was earlier in the week where he was in true status and nonetheless he probably is at least in what we call partial status His cardiomyopathy and secondary veno congestion with with respiratory failure is slowly improving he also has the aspiration pneumonitis picture or but with our Lasix drip induced diuresis his CVP is coming down slowly and at currently down to the mid to high teens and with that the FiO2 is is diminishing and his respiratory work on the ventilator is diminishing but we are electing to stop the propofol so we could assess mental status and were going to start that process now but metabolically otherwise stable He is a morbidly obese type 2 diabetic and and as we continue to diurese his abdomen is becoming softer and the NG aspirate is diminishing greatly in volume so maybe this was a congestive gastropathy of sorts Critical Care Time (minutes): 60 Physical Exam Verdana 4l Vital Signs: Verdana 4d Verdana 4d Vital Signs: Verdana 4d Verdana 4Bd Last Vital Signs Verdana 4d Santa'S Helper New 4d Santa'S Helper New 4d Temp 99.3 F 09/27/21 16:00 Santa'S Helper New 4d Pulse 119 H 09/27/21 16:00 Santa'S Helper New 4d Resp 18 09/27/21 17:02 BP 106/59 L 09/27/21 16:00 Pulse Ox 95 09/27/21 16:00 BMI result Body Mass Index 40.3 Remains unresponsive even to deep pain is and remains in and modestly controlled atrial fibrillation with frequent PVCs heart rate varying between 70s and 80s at the low end to 120 at the high end and yet even higher when he is clinically seizing Bedside echo with at best 40% ejection fraction no change Lungs without diaphragmatic effort Objective Data Labs CBC & Chem 7: 09/28/21 05:20 09/28/21 05:20 Labs: Laboratory Results - last 24 hr 09/26/21 09/27/21 09/27/21 17:36 05:15 05:15 WBC 11.8 H RBC 2.78 L Hgb 9.0 L Hct 27.3 L MCV 98.2 H MCH 32.4 MCHC 33.0 RDW 14.7 Plt Count 143 L MPV 10.0 Immature Gran % (Auto) 0.9 H Neut % (Auto) 80.0 H Lymph % (Auto) 8.8 L [place] % (Auto) 7.5 Eos % (Auto) 2.6 Baso % (Auto) 0.2 Lymph # (Auto) 1.0 L [place] # (Auto) 0.9 Eos # (Auto) 0.3 Baso # (Auto) 0.0 Abs Immat Gran (auto) 0.11 H Absolute Neuts (auto) 9.5 H Absolute Nucleated RBC 0.000 Nucleated RBC % (auto) 0.0 PT 19.3 H INR 1.7 H APTT 31.6 VBG pH VBG pCO2 VBG pO2 VBG HCO3 VBG O2 Saturation VBG Base Excess Sodium Potassium Chloride Carbon Dioxide Anion Gap BUN Creatinine 1.19 Estim Creat Clear Calc 79.0 Estimated GFR > 60 Random Glucose Calcium Phosphorus Magnesium Total Bilirubin Direct Bilirubin AST ALT Alkaline Phosphatase B-Natriuretic Peptide Total Protein Albumin 09/27/21 09/27/21 09/27/21 05:15 05:15 05:18 WBC RBC Hgb Hct MCV MCH MCHC RDW Plt Count MPV Immature Gran % (Auto) Neut % (Auto) Lymph % (Auto) [place]cl[place] % (Auto) Eos % (Auto) Baso % (Auto) Lymph # (Auto) [place] # (Auto) Eos # (Auto) Baso # (Auto) Abs Immat Gran (auto) Absolute Neuts (auto) Absolute Nucleated RBC Nucleated RBC % (auto) PT INR APTT VBG pH 7.53 H VBG pCO2 40 VBG pO2 45 VBG HCO3 34 H VBG O2 Saturation 76.0 VBG Base Excess 10.7 Sodium 141 Potassium 2.7 L D Chloride 100 Carbon Dioxide 32 H Anion Gap 12 BUN 14 Creatinine 1.09 Estim Creat Clear Calc 86.3 Estimated GFR > 60 Random Glucose 104 Calcium 7.9 L Phosphorus 2.1 L Magnesium 1.8 Total Bilirubin 1.3 H Direct Bilirubin 0.9 H AST 42 H ALT 26 Alkaline Phosphatase 65 B-Natriuretic Peptide 608 H Total Protein 5.3 L Albumin 3.1 L 09/27/21 12:53 WBC RBC Hgb Hct MCV MCH MCHC RDW Plt Count MPV Immature Gran % (Auto) Neut % (Auto) Lymph % (Auto) [place] % (Auto) Eos % (Auto) Baso % (Auto) Lymph # (Auto) [place] # (Auto) Eos # (Auto) Baso # (Auto) Abs Immat Gran (auto) Absolute Neuts (auto) Absolute Nucleated RBC Nucleated RBC % (auto) PT INR APTT VBG pH VBG pCO2 VBG pO2 VBG HCO3 VBG O2 Saturation VBG Base Excess Sodium 143 Potassium 3.2 L Chloride 101 Carbon Dioxide 31 H Anion Gap 14 BUN 15 Creatinine 1.13 Estim Creat Clear Calc 83.2 Estimated GFR > 60 Random Glucose 97 Calcium 8.0 L Phosphorus Magnesium Total Bilirubin Direct Bilirubin AST ALT Alkaline Phosphatase B-Natriuretic Peptide Total Protein Albumin Microbiology Microbiology Results: Microbiology 09/26/21 08:39 Sputum - Suctioned Gram Stain - Final 09/26/21 08:39 Sputum - Suctioned Sputum Culture - Preliminary Yeast 09/24/21 16:53 Blood - Venous Blood Culture - Preliminary No growth after 48 hours. 09/24/21 16:53 Blood - Venous Blood Culture - Preliminary No growth after 48 hours. 09/20/21 22:37 Blood - Venous Blood Culture - Final No growth after 5 days. 09/20/21 22:31 Blood - Venous Blood Culture - Final No growth after 5 days. 09/24/21 04:50 Urine Catheterized - Pacheco Catheter Urine Culture - Final No growth. Progress Note: A&P Assessment and plan (1) Tinea cruris: Status: Acute (2) Acute anoxic encephalopathy: Status: Acute (3) Aspiration pneumonitis: Status: Acute (4) Hypoxemic respiratory failure, chronic: Status: Acute (5) Ileus, unspecified: Status: Acute (6) Chest pain: Status: Acute (7) Cellulitis: Status: Acute (8) Chronic atrial fibrillation: Status: Acute (9) BPH w urinary obs/LUTS: Status: Acute (10) Hemiparesis, left: Status: Acute (11) Acute exacerbation of CHF (congestive heart failure): Status: Acute (12) Acute on chronic anemia: Status: Acute (13) Pancreatitis: Status: Acute (14) Chronic HFrEF (heart failure with reduced ejection fraction): Status: Acute (15) Cardiomyopathy: Status: Acute (16) Bradycardia: Status: Acute (17) Obesity: Status: Acute (18) HTN (hypertension): Status: Acute Plan So the plan is to maintain his support as above with continued attempted diuresis until the CVP comes down to approximately 10+/-that I would like to st op the propofol given time to assess mental status and the and EEG as well to be sure that we are improving upon be status epilepticus and to gauge the the depth and extent of his encephalopathy so we can prognosticate for the family Antibiotics as above Quality Stroke Does the patient have a stroke diagnosis?: No VTE Prior VTE?: No VTE Risk Level:: Medical - moderate - high VTE Device Contraindication: Treatment Not Indicated VTE Drug Contraindication: N/A - Med Ordered
[2021-09-27] MEDS: Midazolam HCl/PF 2 MG/2 ML VIAL 4 MG IM (20:07)
[2021-09-27] MEDS: Atorvastatin Calcium 10 MG TABLET PO (20:32)
[2021-09-27 21:51] LABS: Albumin Level 3.3 g/dL (3.5-5.0); Anion Gap 15 (12-20); Blood Urea Nitrogen 17 mg/dL (9-16); Calcium 7.8 mg/dL (8.4-10.2); Carbon Dioxide 30 mmol/L (22-29); Chloride 102 mmol/L (96-108); Creatinine Clr Calc Pharmacy 71.2; Estimated Glomerular Filt Rate 55; Glucose Random 120 mg/dL (60-115); Phosphorus 3.8 mg/dL (2.7-4.5); Potassium 4.2 mmol/L (3.3-5.1); Sodium 143 mmol/L (135-145)
[2021-09-27] MEDS: dilTIAZem HCL 125 MG in 0.9 % Sodium Chloride 100 ML IVCONT (23:43)
[2021-09-28] VITALS (32 sets, daily range): BP systolic 90–132; BP diastolic 36–73; PULSE 71–132; RESP 17–28; TEMP 34–38.7; O2SAT 84–100
[2021-09-28] MEDS: Midazolam HCl/PF 2 MG/2 ML VIAL 5 MG IM (00:30)
[2021-09-28 01:07] LABS: Glucose, Whole Blood 111 mg/dL (60-115)
[2021-09-28] MEDS: Midazolam HCl/NS 50 MG/50 ML PLAST..BAG IVCONT ×3 (01:10→22:02)
[2021-09-28] MEDS: Valproic Acid (as Sodium Salt) 500 MG in Dextrose 5 % 50 ML 52.5 MG IV ×4 (02:37→20:14)
[2021-09-28] MEDS: Acetaminophen 325 MG TABLET 650 MG PO (02:37)
[2021-09-28] MEDS: Furosemide 200 MG in 0.9 % Sodium Chloride 80 ML IVCONT (04:38)
[2021-09-28] MEDS: Clindamycin Phosphate/D5W 600 MG/50 ML PIGGYBACK 100 MG IV ×4 (05:20→23:38)
[2021-09-28] MEDS: Albuterol/Iprat 2.5/0.5MG 3 ML AMPUL.NEB INHALE ×2 (05:22→11:48)
[2021-09-28 05:40] LABS: VBG Base Excess 8.4 mmol/L; VBG HCO3 32 mmol/L (22-26); VBG pCO2 43 mmHg; VBG pH 7.48 (7.32-7.43); VBG pO2 49 mmHg
[2021-09-28 05:42] LABS: Venous Blood Gas Refer to POC result
[2021-09-28 05:48] LABS: MANUAL DIFF FLAG NO
[2021-09-28 05:54] LABS: Basophils Percent Auto 0.2 % (0-2); Eosinophils Percent Auto 0.3 % (0-4); Hematocrit 28.2 % (42.0-52.0); Hemoglobin 9.1 g/dl (14.0-18.0); Imm Gran Abs Auto 0.25 X10*3/uL (0.00-0.03); Imm Gran Pct Auto 2.1 % (0.0-0.4); Lymphocytes Absolute Auto 1.2 X10*3/uL (1.2-4.9); Lymphocytes Percent Auto 9.9 % (20-40); Mean Corpuscular HGB Conc 32.3 g/dl (31.0-36.0); Mean Corpuscular Hemoglobin 31.6 pg (27.0-33.0); Mean Corpuscular Volume 97.9 fL (80.0-98.0); Mean Platelet Volume 9.8 fL (9.4-12.4); Monocytes Absolute Auto 1.2 X10*3/uL (0.1-1.2); Monocytes Percent Auto 10.3 % (2-11); NRBC Pct Auto 0.2 /100WBC (0.0-0.2); Neutrophils Absolute Auto 9.3 x10*3/uL (2.0-8.3); Neutrophils Percent Auto 77.2 % (45-73); Platelet Count 156 X10*3/uL (160-400); Red Blood Count 2.88 X10*6/uL (4.60-5.80); Red Cell Distribution Width 15.2 % (11.0-16.0)
[2021-09-28 06:01] LABS: INTERNATIONAL NORM RATIO 1.7 (0.9-1.1); Prothrombin Time 19.3 SEC (9.9-13.0)
[2021-09-28 06:03] LABS: Partial Thromboplastin Time 30.4 SEC (24.1-38.0)
[2021-09-28 06:12] LABS: Alanine Aminotransferase 28 U/L (0-40); Albumin Level 3.1 g/dL (3.5-5.0); Alkaline Phosphatase 72 U/L (39-117); Anion Gap 15 (12-20); Aspartate Amino Transferase 71 U/L (5-37); Bilirubin Direct 0.9 mg/dL (0.0-0.5); Bilirubin Total 1.5 mg/dL (0.0-1.0); Blood Urea Nitrogen 20 mg/dL (9-16); Calcium 7.8 mg/dL (8.4-10.2); Carbon Dioxide 31 mmol/L (22-29); Chloride 102 mmol/L (96-108); Creatinine Clr Calc Pharmacy 63.9; Estimated Glomerular Filt Rate 48; Glucose Random 105 mg/dL (60-115); Magnesium 1.8 mg/dL (1.6-2.6); Phosphorus 3.2 mg/dL (2.7-4.5); Potassium 3.4 mmol/L (3.3-5.1); Sodium 145 mmol/L (135-145); Total Protein 5.6 g/dL (6.5-8.0)
[2021-09-28 06:15] LABS: B Type Natriuretic Peptide 1028 pg/mL (<100)
[2021-09-28] MEDS: levETIRAcetam in NaCl (iso-os) 1,500 MG/100 ML PIGGYBACK 400 MG IV ×2 (08:53→22:06)
[2021-09-28] MEDS: Digoxin 0.25 MG TABLET PO (08:54)
[2021-09-28] MEDS: Heparin Sodium,Porcine 5,000 UNIT/ML VIAL 5000 UNIT SUBCUT ×2 (08:54→18:18)
[2021-09-28] MEDS: Potassium Chloride Packet 20 MEQ PACKET PO (08:54)
[2021-09-28] MEDS: Chlorhexidine Gluc Oral Rinse 15 ML MOUTHWASH BUCCAL ×3 (08:54→20:10)
[2021-09-28] MEDS: 0.9 % Sodium Chloride Flush 3 ML SYRINGE IVFLUSH ×2 (08:56→16:16)
[2021-09-28] MEDS: cefEPime HCl 1 GM in 0.9 % Sodium Chloride 50 ML IV ×2 (09:14→20:10)
[2021-09-28] MEDS: Nystatin Powder 15 GM BOTTLE 1 APPL TOPICAL ×2 (09:19→22:12)
[2021-09-28] MEDS: LORazepam 2 MG/ML VIAL 4 MG IVPUSH (11:48)
--- NOTE | 2021-09-28 11:53 | MHC.CLN ---
F/U PT REMAINS INTUBATED AND SEDATED DISCUSSED AT ROUNDS WITH MD; PROGNOSIS VERY POOR PER MD PT TO RECEIVE PROMOTE AT MAX GOAL RATE 60ML/HR TO PROVIDE 1440KCALS, 90G PROTEIN (1.2G), 1928CC TOTAL FREE WATER FROM FORMULA AND FLUSHES (27.5ML/KG BASED ON IBW) MONITOR TOLERANCE, RESIDUALS AND LYTES
[2021-09-28] MEDS: dilTIAZem HCL 125 MG in 0.9 % Sodium Chloride 100 ML 10 MG IVCONT ×2 (11:58→23:41)
[2021-09-28] MEDS: Ketamine HCl 500 MG/5 ML VIAL 120 MG IVPUSH (12:16)
[2021-09-28] MEDS: Ketamine HCl 500 MG in 0.9 % Sodium Chloride 250 ML 73.56 MG IVCONT ×3 (14:10→20:38)
--- NOTE | 2021-09-28 17:35 | P.PNCC_ITS ---
Subjective Subjective Date of Service: 09/28/21 Interval History: 66-year-old type 2 diabetic and morbidly obese witnessed aspiration with hypoxic respiratory failure secondary cardiac arrest with 17 minute resuscitation who has not yet demonstrated any moravian of mental status but because of refractory status epilepticus remains on 3 drugs and propofol and Versed and still has recurrent breakthrough seizures so he is truly refractory and today we made the decision due to lack of response to Ativan to start him on ketamine with an and initial loading dose and a 20 micrograms/kilos per minute drip which seems to have completely shut off the epileptic activity and again EEG showing severe encephalopathy but reduction of the overall epileptic burden so will continue with this and try to keep him off propofol and then hopefully be able to his assess him neurologically and once again repeat and other EEG to gauge prognosis but he will now be on a ketamine drip in addition to the other 3 drugs As we diurese is is increased intrathoracic volume off his ventilatory requirements are diminishing Critical Care Time (minutes): 60 Physical Exam Verdana 4l Vital Signs: Verdana 4d Verdana 4d Vital Signs: Verdana 4d Verdana 4Bd Last Vital Signs Verdana 4d Grade Tamper New 4d Grade Tamper New 4d Temp 100.0 F 09/28/21 17:00 Grade Tamper New 4d Pulse 103 H 09/28/21 17:00 Grade Tamper New 4d Resp 18 09/28/21 17:00 BP 121/65 09/28/21 17:00 Pulse Ox 99 09/28/21 17:00 BMI result Body Mass Index 40.3 Controlled atrial fibrillation with rate of 80-90 oxygen saturation of 98% on FiO2 of 50% Stable 35-40% ejection fraction by bedside echo Abdomen soft no organomegaly and there is been some stool output so were going to stop NG suction because of low volume being produced an initiate feedings which he seems to be tolerating Objective Data Labs CBC & Chem 7: 09/28/21 05:20 09/28/21 05:20 Labs: Laboratory Results - last 24 hr 09/27/21 09/28/21 09/28/21 21:05 00:27 05:20 WBC 12.0 H RBC 2.88 L Hgb 9.1 L Hct 28.2 L MCV 97.9 MCH 31.6 MCHC 32.3 RDW 15.2 Plt Count 156 L MPV 9.8 Immature Gran % (Auto) 2.1 H Neut % (Auto) 77.2 H Lymph % (Auto) 9.9 L Wood % (Auto) 10.3 Eos % (Auto) 0.3 Baso % (Auto) 0.2 Lymph # (Auto) 1.2 [place] # (Auto) 1.2 Eos # (Auto) 0.0 Baso # (Auto) 0.0 Abs Immat Gran (auto) 0.25 H Absolute Neuts (auto) 9.3 H Absolute Nucleated RBC 0.020 H Nucleated RBC % (auto) 0.2 PT INR APTT VBG pH VBG pCO2 VBG pO2 VBG HCO3 VBG O2 Saturation VBG Base Excess Sodium 143 Potassium 4.2 D Chloride 102 Carbon Dioxide 30 H Anion Gap 15 BUN 17 H Creatinine 1.32 Estim Creat Clear Calc 71.2 Estimated GFR 55 POC Glucose 111 Random Glucose 120 H Calcium 7.8 L Phosphorus 3.8 Magnesium Total Bilirubin Direct Bilirubin AST ALT Alkaline Phosphatase B-Natriuretic Peptide Total Protein Albumin 3.3 L 09/28/21 09/28/21 09/28/21 05:20 05:20 05:20 WBC RBC Hgb Hct MCV MCH MCHC RDW Plt Count MPV Immature Gran % (Auto) Neut % (Auto) Lymph % (Auto) Wood % (Auto) Eos % (Auto) Baso % (Auto) Lymph # (Auto) [place] # (Auto) Eos # (Auto) Baso # (Auto) Abs Immat Gran (auto) Absolute Neuts (auto) Absolute Nucleated RBC Nucleated RBC % (auto) PT 19.3 H INR 1.7 H APTT 30.4 VBG pH VBG pCO2 VBG pO2 VBG HCO3 VBG O2 Saturation VBG Base Excess Sodium 145 Potassium 3.4 Chloride 102 Carbon Dioxide 31 H Anion Gap 15 BUN 20 H Creatinine 1.47 H Estim Creat Clear Calc 63.9 Estimated GFR 48 POC Glucose Random Glucose 105 Calcium 7.8 L Phosphorus 3.2 Magnesium 1.8 Total Bilirubin 1.5 H Direct Bilirubin 0.9 H AST 71 H ALT 28 Alkaline Phosphatase 72 B-Natriuretic Peptide 1028 H Total Protein 5.6 L Albumin 3.1 L 09/28/21 05:33 WBC RBC Hgb Hct MCV MCH MCHC RDW Plt Count MPV Immature Gran % (Auto) Neut % (Auto) Lymph % (Auto) Wood % (Auto) Eos % (Auto) Baso % (Auto) Lymph # (Auto) Wood # (Auto) Eos # (Auto) Baso # (Auto) Abs Immat Gran (auto) Absolute Neuts (auto) Absolute Nucleated RBC Nucleated RBC % (auto) PT INR APTT VBG pH 7.48 H VBG pCO2 43 VBG pO2 49 VBG HCO3 32 H VBG O2 Saturation 78.0 VBG Base Excess 8.4 Sodium Potassium Chloride Carbon Dioxide Anion Gap BUN Creatinine Estim Creat Clear Calc Estimated GFR POC Glucose Random Glucose Calcium Phosphorus Magnesium Total Bilirubin Direct Bilirubin AST ALT Alkaline Phosphatase B-Natriuretic Peptide Total Protein Albumin Microbiology Microbiology Results: Microbiology 09/26/21 08:39 Sputum - Suctioned Gram Stain - Final 09/26/21 08:39 Sputum - Suctioned Sputum Culture - Preliminary Yeast 09/24/21 16:53 Blood - Venous Blood Culture - Preliminary No growth after 48 hours. 09/24/21 16:53 Blood - Venous Blood Culture - Preliminary No growth after 48 hours. 09/20/21 22:37 Blood - Venous Blood Culture - Final No growth after 5 days. 09/20/21 22:31 Blood - Venous Blood Culture - Final No growth after 5 days. 09/24/21 04:50 Urine Catheterized - Pacheco Catheter Urine Culture - Final No growth. Progress Note: A&P Assessment and plan (1) Tinea cruris: Status: Acute (2) Acute anoxic encephalopathy: Status: Acute (3) Aspiration pneumonitis: Status: Acute (4) Hypoxemic respiratory failure, chronic: Status: Acute (5) Ileus, unspecified: Status: Acute (6) Chest pain: Status: Acute (7) Cellulitis: Status: Acute (8) Chronic atrial fibrillation: Status: Acute (9) BPH w urinary obs/LUTS: Status: Acute (10) Hemiparesis, left: Status: Acute (11) Acute exacerbation of CHF (congestive heart failure): Status: Acute (12) Acute on chronic anemia: Status: Acute (13) Pancreatitis: Status: Acute (14) Chronic HFrEF (heart failure with reduced ejection fraction): Status: Acute (15) Cardiomyopathy: Status: Acute (16) Bradycardia: Status: Acute (17) Obesity: Status: Acute (18) HTN (hypertension): Status: Acute Plan So will maintain support keep him on the 4 drips including the ketamine for tonight reassess him off the propofol with another possible EEG repeat Quality Stroke Does the patient have a stroke diagnosis?: No VTE Prior VTE?: No VTE Risk Level:: Medical - moderate - high VTE Device Contraindication: Treatment Not Indicated VTE Drug Contraindication: N/A - Med Ordered
--- NOTE | 2021-09-28 18:33 | PC.NURSE ---
VSS on levophed gtt, tmax 100.8. Afib pn tele with PVCs. Pt having break thru seizures, worsening, ivp ketamine given with good effect. Ketamine gtt started. Pt sedated on versed. no cough/gag, unable to follow commands. Vent settings changed to AC rate 20, TV 500, peep 5, fio2 90%. u/o wnl, o bm, pt repo q2hr, traid applied to buttocks. Tube feeds started per order. pt tolerating well. Family updated over phone with per diem interpreter.
[2021-09-28] MEDS: Atorvastatin Calcium 10 MG TABLET PO (20:10)
[2021-09-29] VITALS (34 sets, daily range): BP systolic 83–126; BP diastolic 47–69; PULSE 71–879; RESP 17–24; TEMP 34–37.6; O2SAT 87–98
[2021-09-29] MEDS: Ketamine HCl 500 MG in 0.9 % Sodium Chloride 250 ML 73.56 MG IVCONT ×7 (00:11→22:03)
[2021-09-29] MEDS: Albuterol/Iprat 2.5/0.5MG 3 ML AMPUL.NEB INHALE ×5 (00:18→23:57)
[2021-09-29] MEDS: Valproic Acid (as Sodium Salt) 500 MG in Dextrose 5 % 50 ML 52.5 MG IV ×4 (01:30→20:20)
--- NOTE | 2021-09-29 03:12 | PC.NURSE ---
Pt remains on AC vent settings. FiO2 weaned from 90% to 75%. BP stable on Levophed gtt. Monitor continues afib, rate 80's, occ PVC's noted. Cardizem drip at 10 mg/hr. Pt is unresponsive to verbal or painful stimuli. No cough or gag reflex. On ketamine gtt. No seizures noted. Slight twitch od left foot noted at times. Urine output good, 40-75 ml/hr. Tube feeds restarted by previous RN. Aspirating a significant amount, last at 0200 aspirated 220 ml. Feed shut off. Provider aware and reglan ordered.
[2021-09-29] MEDS: Metoclopramide HCl 10 MG/2 ML VIAL 5 MG IVPUSH ×4 (03:34→20:35)
[2021-09-29] MEDS: Midazolam HCl/PF 2 MG/2 ML VIAL 5 MG IVPUSH (03:40)
[2021-09-29 05:32] LABS: VBG Base Excess 6.1 mmol/L; VBG HCO3 30 mmol/L (22-26); VBG pCO2 42 mmHg; VBG pH 7.46 (7.32-7.43); VBG pO2 52 mmHg
[2021-09-29] MEDS: Clindamycin Phosphate/D5W 600 MG/50 ML PIGGYBACK 100 MG IV ×3 (05:41→18:33)
[2021-09-29 05:49] LABS: Venous Blood Gas Refer to POC result
[2021-09-29] MEDS: Heparin Sodium,Porcine 5,000 UNIT/ML VIAL 5000 UNIT SUBCUT ×2 (05:51→18:29)
[2021-09-29 05:53] LABS: Hematocrit 28.1 % (42.0-52.0); Hemoglobin 8.9 g/dl (14.0-18.0); Mean Corpuscular HGB Conc 31.7 g/dl (31.0-36.0); Mean Corpuscular Hemoglobin 31.7 pg (27.0-33.0); NRBC Pct Auto 0.3 /100WBC (0.0-0.2); Platelet Count 136 X10*3/uL (160-400); Red Blood Count 2.81 X10*6/uL (4.60-5.80); Red Cell Distribution Width 15.3 % (11.0-16.0); White Blood Count 10.2 X10*3/uL (4.8-10.8)
[2021-09-29 06:02] LABS: INTERNATIONAL NORM RATIO 1.8 (0.9-1.1); Prothrombin Time 20.4 SEC (9.9-13.0)
[2021-09-29 06:05] LABS: Partial Thromboplastin Time 28.4 SEC (24.1-38.0)
[2021-09-29 06:08] LABS: B Type Natriuretic Peptide 1236 pg/mL (<100)
[2021-09-29 06:29] LABS: Alanine Aminotransferase 29 U/L (0-40); Albumin Level 2.9 g/dL (3.5-5.0); Alkaline Phosphatase 66 U/L (39-117); Anion Gap 13 (12-20); Aspartate Amino Transferase 83 U/L (5-37); Bilirubin Direct 0.7 mg/dL (0.0-0.5); Bilirubin Total 1.1 mg/dL (0.0-1.0); Blood Urea Nitrogen 25 mg/dL (9-16); Calcium 7.7 mg/dL (8.4-10.2); Carbon Dioxide 29 mmol/L (22-29); Chloride 108 mmol/L (96-108); Creatinine Clr Calc Pharmacy 73.4; Estimated Glomerular Filt Rate 57; Glucose Random 148 mg/dL (60-115); Phosphorus 2.2 mg/dL (2.7-4.5); Potassium 2.3 mmol/L (3.3-5.1); Sodium 148 mmol/L (135-145); Total Protein 5.4 g/dL (6.5-8.0)
--- NOTE | 2021-09-29 06:59 | PC.NURSE ---
Pt started to have increased twitching of not only right foot but right leg and his jaw. Provider Lanette PAC at bedside. Midazolam ordered and given with good effect. tube feed was restarted at 0600 at 10 ml/hr. Ogt checked nd aspirated only 10 ml.
[2021-09-29 07:09] LABS: Band Neutrophils Percent 12 % (3-5); Lymphocytes Absolute Manual 1.1 X10*3/uL (1.2-4.9); Lymphocytes Percent Manual 11 % (20-40); Metamyelocytes Percent 10 %; Monocytes Absolute Manual 0.9 X10*3/uL (0.1-1.2); Monocytes Percent Manual 9 % (2-11); Myelocytes Absolute 0.1 X10*/uL; Myelocytes Percent 1 %; Neutrophils Percent Manual 57 % (45-73)
[2021-09-29 07:11] LABS: Large Platelet PRESENT; Platelet Estimate DECREASED (NORMAL); Platelet Morphology Comment NOTED; RBC Morphology NORMAL
[2021-09-29] MEDS: Chlorhexidine Gluc Oral Rinse 15 ML MOUTHWASH BUCCAL ×3 (07:45→20:34)
[2021-09-29] MEDS: Midazolam HCl/NS 50 MG/50 ML PLAST..BAG IVCONT ×2 (07:54→18:29)
[2021-09-29] MEDS: 0.9 % Sodium Chloride Flush 3 ML SYRINGE IVFLUSH ×2 (07:58→16:34)
[2021-09-29] MEDS: levETIRAcetam in NaCl (iso-os) 1,500 MG/100 ML PIGGYBACK 400 MG IV ×2 (10:36→21:06)
[2021-09-29] MEDS: Furosemide 200 MG in 0.9 % Sodium Chloride 80 ML IVCONT (10:40)
[2021-09-29] MEDS: cefEPime HCl 1 GM in 0.9 % Sodium Chloride 50 ML IV ×2 (10:45→20:25)
[2021-09-29] MEDS: Potassium Chloride/H20 10 MEQ/100 ML PIGGYBACK 100 MEQ IV ×4 (10:46→14:03)
[2021-09-29] MEDS: Nystatin Powder 15 GM BOTTLE 1 APPL TOPICAL ×2 (11:14→20:43)
[2021-09-29] MEDS: Potassium Chloride Packet 20 MEQ PACKET 40 MEQ PO (11:32)
--- NOTE | 2021-09-29 12:11 | MHC.CLN ---
F/U PT REMAINS INTUBATED; KETAMINE DRIP STARTED DISCUSSED AT ROUNDS; NSG NOTED NO BM TF TURNED OFF AT 2AM R/T HIGH RESIDUALS REGLAN STARTED TF CURRENTLY RUNNING AT 20ML/HR AND TOLERATING AT THIS TIME RECOMMEND PROMOTE AT MAX GOAL RATE 60ML/HR TO PROVIDE 1440KCALS, 90G PROTEIN (1.2G), 1928CC TOTAL FREE WATER FROM FORMULA AND FLUSHES (27.5ML/KG BASED ON IBW) CONTINUE TO MONITOR TOLERANCE, RESIDUALS AND LYTES
[2021-09-29] MEDS: dilTIAZem HCL 125 MG in 0.9 % Sodium Chloride 100 ML 7.5 MG IVCONT (13:30)
--- NOTE | 2021-09-29 15:42 | P.PNCC_ITS ---
Subjective Subjective Date of Service: 09/29/21 Interval History: Remains unresponsive off propofol He 66 years of age with a congestive cardiomyopathy chronic atrial fibrillation morbid obesity and had a witnessed aspiration of large volume emesis creating acute hypoxemic respiratory failure cardiac arrest and 17 minute resuscitation and potential hypoxemic time and probably overnight nonconvulsive status epilepticus we are on still on 3 and a corrected for drugs thus ketamine is now included along with valproic acid and Dilantin and Keppra and id it is the quiet is from the standpoint of seizure activity that he has been since he since he has been here abdomen still remains relatively soft but he is unresponsive to any any pain so that is difficult to gauge but is no palpable organomegaly no palpable mass but also have no audible bowel sounds Still has a a clinical ileus and with the high residuals and intolerance of his tube feedings Also significant increase in his intake to output ratio so in order to given the volume necessary for potassium replacement etc. I have to reinitiate his Lasix drip at this point at 10 milligrams/hour Critical Care Time (minutes): 45 Physical Exam Verdana 4l Vital Signs: Verdana 4d Verdana 4d Vital Signs: Verdana 4d Verdana 4Bd Last Vital Signs Verdana 4d Rubber Molder New 4d Rubber Molder New 4d Temp 99.1 F 09/29/21 15:00 Rubber Molder New 4d Pulse 82 09/29/21 15:00 Rubber Molder New 4d Resp 17 09/29/21 15:00 BP 111/59 L 09/29/21 15:00 Pulse Ox 95 09/29/21 15:00 BMI result Body Mass Index 40.3 Remains unresponsive but comfortable and synchronous with the ventilator but still with high FiO2 requirement of 75% but an elevated CVP so therefore introducing Lasix to see if we can help out that situation Adequate bilateral carotid upstrokes no gallops Diminished bilateral breath sounds no adventitious sounds no use of accessory muscles or diaphragm And abdomen is softer than it was initially no palpable organomegaly Objective Data Labs CBC & Chem 7: 09/29/21 05:20 09/29/21 05:20 Labs: Laboratory Results - last 24 hr 09/29/21 09/29/21 09/29/21 05:20 05:20 05:20 WBC 10.2 RBC 2.81 L Hgb 8.9 L Hct 28.1 L MCV 100.0 H MCH 31.7 MCHC 31.7 RDW 15.3 Plt Count 136 L MPV 10.0 Immature Gran % (Auto) Cancelled Neut % (Auto) Cancelled Lymph % (Auto) Cancelled [place] % (Auto) Cancelled Eos % (Auto) Cancelled Baso % (Auto) Cancelled Lymph # (Auto) Cancelled [place] # (Auto) Cancelled Eos # (Auto) Cancelled Baso # (Auto) Cancelled Abs Immat Gran (auto) Cancelled Absolute Neuts (auto) Cancelled Absolute Nucleated RBC 0.030 H Nucleated RBC % (auto) 0.3 H Neutrophils % (Manual) 57 Band Neutrophils % 12 H Lymphocytes % (Manual) 11 L Monocytes % (Manual) 9 Metamyelocytes % 10 Myelocytes % 1 Abs Neuts (Manual) 7.0 Lymphocytes # (Manual) 1.1 L Monocytes # (Manual) 0.9 Metamyelocytes # 1.0 Myelocytes # 0.1 Platelet Estimate DECREASED Large Platelets PRESENT Plt Morphology Comment NOTED RBC Morphology NORMAL PT 20.4 H INR 1.8 H APTT 28.4 VBG pH VBG pCO2 VBG pO2 VBG HCO3 VBG O2 Saturation VBG Base Excess Sodium 148 H Potassium 2.3 L* D Chloride 108 Carbon Dioxide 29 Anion Gap 13 BUN 25 H Creatinine 1.28 Estim Creat Clear Calc 73.4 Estimated GFR 57 Random Glucose 148 H D Calcium 7.7 L Phosphorus 2.2 L Magnesium 2.0 Total Bilirubin 1.1 H Direct Bilirubin 0.7 H AST 83 H ALT 29 Alkaline Phosphatase 66 B-Natriuretic Peptide Total Protein 5.4 L Albumin 2.9 L 09/29/21 09/29/21 05:20 05:24 WBC RBC Hgb Hct MCV MCH MCHC RDW Plt Count MPV Immature Gran % (Auto) Neut % (Auto) Lymph % (Auto) [place] % (Auto) Eos % (Auto) Baso % (Auto) Lymph # (Auto) [place] # (Auto) Eos # (Auto) Baso # (Auto) Abs Immat Gran (auto) Absolute Neuts (auto) Absolute Nucleated RBC Nucleated RBC % (auto) Neutrophils % (Manual) Band Neutrophils % Lymphocytes % (Manual) Monocytes % (Manual) Metamyelocytes % Myelocytes % Abs Neuts (Manual) Lymphocytes # (Manual) Monocytes # (Manual) Metamyelocytes # Myelocytes # Platelet Estimate Large Platelets Plt Morphology Comment RBC Morphology PT INR APTT VBG pH 7.46 H VBG pCO2 42 VBG pO2 52 VBG HCO3 30 H VBG O2 Saturation 81.0 VBG Base Excess 6.1 Sodium Potassium Chloride Carbon Dioxide Anion Gap BUN Creatinine Estim Creat Clear Calc Estimated GFR Random Glucose Calcium Phosphorus Magnesium Total Bilirubin Direct Bilirubin AST ALT Alkaline Phosphatase B-Natriuretic Peptide 1236 H Total Protein Albumin Microbiology Microbiology Results: Microbiology 09/26/21 08:39 Sputum - Suctioned Gram Stain - Final 09/26/21 08:39 Sputum - Suctioned Sputum Culture - Final Rosa albicans 09/24/21 16:53 Blood - Venous Blood Culture - Preliminary No growth after 48 hours. 09/24/21 16:53 Blood - Venous Blood Culture - Preliminary No growth after 48 hours. 09/20/21 22:37 Blood - Venous Blood Culture - Final No growth after 5 days. 09/20/21 22:31 Blood - Venous Blood Culture - Final No growth after 5 days. 09/24/21 04:50 Urine Catheterized - Pacheco Catheter Urine Culture - Final No growth. Progress Note: A&P Assessment and plan (1) Tinea cruris: Status: Acute (2) Acute anoxic encephalopathy: Status: Acute (3) Aspiration pneumonitis: Status: Acute (4) Hypoxemic respiratory failure, chronic: Status: Acute (5) Ileus, unspecified: Status: Acute (6) Chest pain: Status: Acute (7) Cellulitis: Status: Acute (8) Chronic atrial fibrillation: Status: Acute (9) BPH w urinary obs/LUTS: Status: Acute (10) Hemiparesis, left: Status: Acute (11) Acute exacerbation of CHF (congestive heart failure): Status: Acute (12) Acute on chronic anemia: Status: Acute (13) Pancreatitis: Status: Acute (14) Chronic HFrEF (heart failure with reduced ejection fraction): Status: Acute (15) Cardiomyopathy: Status: Acute (16) Bradycardia: Status: Acute (17) Obesity: Status: Acute (18) HTN (hypertension): Status: Acute Plan Plan is to utilize they Lasix to even his intake and output keep him on ventilator support keep him on the for anti seizure drips for the time being and then completely eliminate the Versed and ketamine hopefully by tomorrow and if there is no breakthrough seizure activity see whether not he is capable of regaining cognitive function over time Quality Stroke Does the patient have a stroke diagnosis?: No VTE Prior VTE?: No VTE Risk Level:: Medical - moderate - high VTE Device Contraindication: Treatment Not Indicated VTE Drug Contraindication: N/A - Med Ordered
[2021-09-29 16:22] LABS: Anion Gap 13 (12-20); Blood Urea Nitrogen 27 mg/dL (9-16); Calcium 7.6 mg/dL (8.4-10.2); Carbon Dioxide 29 mmol/L (22-29); Chloride 110 mmol/L (96-108); Creatinine Clr Calc Pharmacy 72.9; Estimated Glomerular Filt Rate 56; Glucose Random 164 mg/dL (60-115); Potassium 3.5 mmol/L (3.3-5.1); Sodium 148 mmol/L (135-145)
[2021-09-29] MEDS: Potassium Phosphate/NS 15 MMOL/250 ML PLAST..BAG 62.5 MMOL IV (22:08)
[2021-09-30] VITALS (37 sets, daily range): BP systolic 112–130; BP diastolic 53–109; PULSE 65–133; RESP 17–33; TEMP 33.8–38.4; O2SAT 88–98
[2021-09-30] MEDS: 0.9 % Sodium Chloride Flush 3 ML SYRINGE IVFLUSH ×2 (00:40→08:12)
[2021-09-30] MEDS: Clindamycin Phosphate/D5W 600 MG/50 ML PIGGYBACK 100 MG IV ×2 (00:41→05:01)
[2021-09-30] MEDS: Ketamine HCl 500 MG in 0.9 % Sodium Chloride 250 ML 73.56 MG IVCONT ×3 (01:33→08:07)
[2021-09-30] MEDS: Valproic Acid (as Sodium Salt) 500 MG in Dextrose 5 % 50 ML 52.5 MG IV ×4 (01:34→19:22)
[2021-09-30] MEDS: Midazolam HCl/NS 50 MG/50 ML PLAST..BAG IVCONT (03:42)
[2021-09-30] MEDS: Metoclopramide HCl 10 MG/2 ML VIAL 5 MG IVPUSH (04:04)
[2021-09-30] MEDS: dilTIAZem HCL 125 MG in 0.9 % Sodium Chloride 100 ML 7.5 MG IVCONT (04:58)
[2021-09-30] MEDS: Furosemide 200 MG in 0.9 % Sodium Chloride 80 ML IVCONT (04:59)
[2021-09-30 05:33] LABS: VBG Base Excess 5.2 mmol/L; VBG HCO3 29 mmol/L (22-26); VBG pCO2 41 mmHg; VBG pH 7.45 (7.32-7.43); VBG pO2 48 mmHg
[2021-09-30 05:35] LABS: Venous Blood Gas Refer to POC result
[2021-09-30 06:10] LABS: Hematocrit 28.9 % (42.0-52.0); Hemoglobin 9.2 g/dl (14.0-18.0); Mean Corpuscular HGB Conc 31.8 g/dl (31.0-36.0); Mean Corpuscular Hemoglobin 31.5 pg (27.0-33.0); Mean Platelet Volume 10.2 fL (9.4-12.4); NRBC Pct Auto 0.6 /100WBC (0.0-0.2); Platelet Count 126 X10*3/uL (160-400); Red Blood Count 2.92 X10*6/uL (4.60-5.80); Red Cell Distribution Width 15.8 % (11.0-16.0); WBC ABN SCTR FOR CBC 1
[2021-09-30 06:15] LABS: White Blood Count 12.4 X10*3/uL (4.8-10.8)
[2021-09-30 06:16] LABS: INTERNATIONAL NORM RATIO 1.7 (0.9-1.1)
[2021-09-30 06:18] LABS: Partial Thromboplastin Time 27.5 SEC (24.1-38.0)
[2021-09-30 06:28] LABS: B Type Natriuretic Peptide 1100 pg/mL (<100)
[2021-09-30] MEDS: Albuterol/Iprat 2.5/0.5MG 3 ML AMPUL.NEB INHALE ×4 (06:28→23:37)
[2021-09-30 06:35] LABS: Alanine Aminotransferase 26 U/L (0-40); Albumin Level 2.9 g/dL (3.5-5.0); Alkaline Phosphatase 64 U/L (39-117); Anion Gap 14 (12-20); Aspartate Amino Transferase 70 U/L (5-37); Bilirubin Direct 0.6 mg/dL (0.0-0.5); Bilirubin Total 0.9 mg/dL (0.0-1.0); Blood Urea Nitrogen 27 mg/dL (9-16); Calcium 7.5 mg/dL (8.4-10.2); Carbon Dioxide 29 mmol/L (22-29); Chloride 109 mmol/L (96-108); Creatinine Clr Calc Pharmacy 73.4; Estimated Glomerular Filt Rate 57; Glucose Random 143 mg/dL (60-115); Magnesium 1.9 mg/dL (1.6-2.6); Sodium 149 mmol/L (135-145); Total Protein 5.5 g/dL (6.5-8.0)
[2021-09-30] MEDS: Heparin Sodium,Porcine 5,000 UNIT/ML VIAL 5000 UNIT SUBCUT ×2 (06:37→19:43)
[2021-09-30 07:19] LABS: Band Neutrophils Percent 6 % (3-5); Lymphocytes Absolute Manual 1.5 X10*3/uL (1.2-4.9); Lymphocytes Percent Manual 12 % (20-40); Macrocytosis 1+ (5-14) /OIF; Metamyelocytes Absolute 1.1 X10*3/uL; Metamyelocytes Percent 9 %; Monocytes Absolute Manual 1.1 X10*3/uL (0.1-1.2); Monocytes Percent Manual 9 % (2-11); Myelocytes Absolute 0.6 X10*/uL; Myelocytes Percent 5 %; Neutrophils Absolute Manual 8.1 X10*3/uL (2.0-8.3); Neutrophils Percent Manual 59 % (45-73); Polychromasia 1+ (0-2) /OIF; RBC Morphology NOTED
[2021-09-30 07:20] LABS: Hypochromasia 1+ (5-14) /OIF; Ovalocytes 1+ (5-14) /OIF
[2021-09-30 07:21] LABS: Platelet Morphology Comment NORMAL
[2021-09-30 07:22] LABS: Platelet Estimate SLIGHTLY DECREASED (NORMAL)
[2021-09-30] MEDS: levETIRAcetam in NaCl (iso-os) 1,500 MG/100 ML PIGGYBACK 400 MG IV ×2 (08:07→19:44)
[2021-09-30] MEDS: Chlorhexidine Gluc Oral Rinse 15 ML MOUTHWASH BUCCAL ×3 (08:07→19:44)
[2021-09-30] MEDS: Nystatin Powder 15 GM BOTTLE 1 APPL TOPICAL ×2 (08:11→20:12)
--- NOTE | 2021-09-30 14:07 | P.PNCC_ITS ---
Subjective Subjective Date of Service: 09/30/21 Interval History: 66-year-old morbidly obese male with previous CVA and left hemiparesis chronic atrial fibrillation underlying congestive cardiomyopathy with ejection fraction in the 30-35% range, and also had a known seizure disorder and for which he took Keppra who came in with abdominal discomfort witnessed to have a large volume emesis and aspiration became immediately hypoxic with respiratory failure resulting in cardiac arrest and 17 minute resuscitation and therefore probable and Oxy of for that period of time and then went into a refractory status epilepticus overnight following morning when I came on I started 1 drug and then a 2nd and then a 3rd so currently on Dilantin and valproic acid and Keppra all maximum doses ultimately he required propofol and midazolam drips in association still with breakthrough status and ultimately added ketamine and a ketamine drip with that he did well for 2 days at this point be because of this massive volume were giving him and also the inability to evaluate any potential cognitive function with all the sedation I see really stopped 1st propofol 24 hours ago Versed we stop this morning and then this afternoon. Ketamine thus far res got very minimal intermittent focal seizure activity manifested by right to toe and right foot movement and no place else it is not a generalized issue blood pressure is well preserved urine output is doing well on a Lasix drip to meet his intake requirements is very synchronous with the ventilator and is FiO2 is coming down as we bring his CVP down on the IV Lasix drip Metabolically he is mildly hypernatremic unfortunately he still has features of persistent ileus and is so he has a sodium elevation to 149 and he is hypokalemic with potassium at 3.0 probably all Lasix induced and were compensating for this and I think pretty soon will be able to stop his Lasix as we decrease his intake But thus far he sees remains completely unresponsive to deep pain Critical Care Time (minutes): 45 Physical Exam Verdana 4l Vital Signs: Verdana 4d Verdana 4d Vital Signs: Verdana 4d Verdana 4Bd Last Vital Signs Verdana 4d Design Painter New 4d Design Painter New 4d Temp 97.2 F 09/30/21 13:00 Design Painter New 4d Pulse 94 09/30/21 13:00 Design Painter New 4d Resp 18 09/30/21 13:00 BP 122/58 L 09/30/21 13:00 Pulse Ox 96 09/30/21 13:00 BMI result Body Mass Index 40.3 Unresponsive to deep pain intermittent minor focal seizure activity of his right foot not generalized off all sedation and no demonstrable cognitive funct ion at this point Cardiac exam with persistent but controlled atrial fibrillation on 5 milligrams/hour diltiazem and he has somewhat diminished bilateral carotid upstrokes CVP is is finally diminishing to a comfortable range and echo again demonstrating moderate diffuse hypokinesis of the left ventricle 30-35% ejection fraction no primary valve or pericardial disease Lungs without event issues sounds Abdomen is no longer tightly distended but bowel sounds are at best trivial and no palpable organomegaly Today is day 6 of the combined meropenem and vancomycin which I will stop and this was given empirically for his aspiration Objective Data Labs CBC & Chem 7: 09/30/21 05:47 09/30/21 05:27 Labs: Laboratory Results - last 24 hr 09/29/21 09/30/21 09/30/21 15:51 05:26 05:27 WBC RBC Hgb Hct MCV MCH MCHC RDW Plt Count MPV Immature Gran % (Auto) Neut % (Auto) Lymph % (Auto) [place] % (Auto) Eos % (Auto) Baso % (Auto) Lymph # (Auto) [place] # (Auto) Eos # (Auto) Baso # (Auto) Abs Immat Gran (auto) Absolute Neuts (auto) Absolute Nucleated RBC Nucleated RBC % (auto) Neutrophils % (Manual) Band Neutrophils % Lymphocytes % (Manual) Monocytes % (Manual) Metamyelocytes % Myelocytes % Abs Neuts (Manual) Lymphocytes # (Manual) Monocytes # (Manual) Metamyelocytes # Myelocytes # Platelet Estimate Plt Morphology Comment RBC Morphology Polychromasia Hypochromasia Macrocytosis Ovalocytes PT 19.0 H INR 1.7 H APTT 27.5 VBG pH 7.45 H VBG pCO2 41 VBG pO2 48 VBG HCO3 29 H VBG O2 Saturation 77.0 VBG Base Excess 5.2 Sodium 148 H Potassium 3.5 D Chloride 110 H Carbon Dioxide 29 Anion Gap 13 BUN 27 H Creatinine 1.29 Estim Creat Clear Calc 72.9 Estimated GFR 56 Random Glucose 164 H Calcium 7.6 L Phosphorus Magnesium Total Bilirubin Direct Bilirubin AST ALT Alkaline Phosphatase B-Natriuretic Peptide Total Protein Albumin 09/30/21 09/30/21 09/30/21 05:27 05:47 05:47 WBC 12.4 H RBC 2.92 L Hgb 9.2 L Hct 28.9 L MCV 99.0 H MCH 31.5 MCHC 31.8 RDW 15.8 Plt Count 126 L MPV 10.2 Immature Gran % (Auto) Cancelled Neut % (Auto) Cancelled Lymph % (Auto) Cancelled [place] % (Auto) Cancelled Eos % (Auto) Cancelled Baso % (Auto) Cancelled Lymph # (Auto) Cancelled [place] # (Auto) Cancelled Eos # (Auto) Cancelled Baso # (Auto) Cancelled Abs Immat Gran (auto) Cancelled Absolute Neuts (auto) Cancelled Absolute Nucleated RBC 0.080 H Nucleated RBC % (auto) 0.6 H Neutrophils % (Manual) 59 Band Neutrophils % 6 H Lymphocytes % (Manual) 12 L Monocytes % (Manual) 9 Metamyelocytes % 9 Myelocytes % 5 Abs Neuts (Manual) 8.1 Lymphocytes # (Manual) 1.5 Monocytes # (Manual) 1.1 Metamyelocytes # 1.1 Myelocytes # 0.6 Platelet Estimate SLIGHTLY DECREASED Plt Morphology Comment NORMAL RBC Morphology NOTED Polychromasia 1+ (0-2) Hypochromasia 1+ (5-14) Macrocytosis 1+ (5-14) Ovalocytes 1+ (5-14) PT INR APTT VBG pH VBG pCO2 VBG pO2 VBG HCO3 VBG O2 Saturation VBG Base Excess Sodium 149 H Potassium 3.0 L Chloride 109 H Carbon Dioxide 29 Anion Gap 14 BUN 27 H Creatinine 1.28 Estim Creat Clear Calc 73.4 Estimated GFR 57 Random Glucose 143 H Calcium 7.5 L Phosphorus 3.0 Magnesium 1.9 Total Bilirubin 0.9 Direct Bilirubin 0.6 H AST 70 H ALT 26 Alkaline Phosphatase 64 B-Natriuretic Peptide 1100 H Total Protein 5.5 L Albumin 2.9 L Microbiology Microbiology Results: Microbiology 09/24/21 16:53 Blood - Venous Blood Culture - Final No growth after 5 days. 09/24/21 16:53 Blood - Venous Blood Culture - Final No growth after 5 days. 09/26/21 08:39 Sputum - Suctioned Gram Stain - Final 09/26/21 08:39 Sputum - Suctioned Sputum Culture - Final Rosa albicans 09/20/21 22:37 Blood - Venous Blood Culture - Final No growth after 5 days. 09/20/21 22:31 Blood - Venous Blood Culture - Final No growth after 5 days. 09/24/21 04:50 Urine Catheterized - Pacheco Catheter Urine Culture - Final No growth. Progress Note: A&P Assessment and plan (1) Tinea cruris: Status: Acute (2) Acute anoxic encephalopathy: Status: Acute (3) Aspiration pneumonitis: Status: Acute (4) Hypoxemic respiratory failure, chronic: Status: Acute (5) Ileus, unspecified: Status: Acute (6) Chest pain: Status: Acute (7) Cellulitis: Status: Acute (8) Chronic atrial fibrillation: Status: Acute (9) BPH w urinary obs/LUTS: Status: Acute (10) Hemiparesis, left: Status: Acute (11) Acute exacerbation of CHF (congestive heart failure): Status: Acute (12) Acute on chronic anemia: Status: Acute (13) Pancreatitis: Status: Acute (14) Chronic HFrEF (heart failure with reduced ejection fraction): Status: Acute (15) Cardiomyopathy: Status: Acute (16) Bradycardia: Status: Acute (17) Obesity: Status: Acute (18) HTN (hypertension): Status: Acute Plan The cardiovascular status and intravascular volume status are compensated renal function has come down to his chronic plateau with creatinine of 1.2 consistent with chronic stage II renal failure the mild electrolyte abnormalities are Lasix induced and that is being replaced IV because we still have an ileus and high residuals when we try to feed him but the big issue is now that were off all sedation over the next 24 hours if he remains completely veno unresponsive and it both very poorly and somebody that we know already has features of profound encephalopathy obviously from anoxia and all and previous CVA and will convey this to family so they can make decisions but this will wait the next 24 hours Quality Stroke Does the patient have a stroke diagnosis?: No VTE Prior VTE?: No VTE Risk Level:: Medical - moderate - high VTE Device Contraindication: Treatment Not Indicated VTE Drug Contraindication: N/A - Med Ordered
[2021-09-30] MEDS: Potassium Chloride/H20 20 MEQ/100 ML PIGGYBACK 100 MEQ IV ×2 (15:26→16:52)
[2021-09-30] MEDS: KCl 20 mEq in 5 % Dextrose 20 MEQ/1,000 ML IV.SOLN 42 MEQ IVCONT (15:26)
[2021-09-30] MEDS: Ketamine HCl/NS 50 MG/5 ML SYRINGE 100 MG IVPUSH (15:26)
[2021-09-30] MEDS: dilTIAZem HCL 125 MG in 0.9 % Sodium Chloride 100 ML 15 MG IVCONT (23:08)
[2021-10-01] VITALS (30 sets, daily range): BP systolic 106–147; BP diastolic 50–78; PULSE 65–125; RESP 18–28; TEMP 34–38.9; O2SAT 87–99
[2021-10-01 02:05] LABS: Lactic Acid 1.7 mmol/L (0.5-2.0)
[2021-10-01] MEDS: Furosemide 200 MG in 0.9 % Sodium Chloride 80 ML IVCONT ×2 (02:14→20:07)
[2021-10-01] MEDS: Valproic Acid (as Sodium Salt) 500 MG in Dextrose 5 % 50 ML 52.5 MG IV ×4 (02:15→19:45)
[2021-10-01] MEDS: 0.9 % Sodium Chloride Flush 3 ML SYRINGE IVFLUSH (02:16)
[2021-10-01] MEDS: Midazolam HCl/PF 2 MG/2 ML VIAL 5 MG IVPUSH ×7 (02:51→19:29)
[2021-10-01] MEDS: Metoprolol Tartrate 5 MG/5 ML VIAL IVPUSH (04:32)
[2021-10-01] MEDS: Acetaminophen Oral Liquid 650 MG/20.3 ML SOLUTION PO ×2 (04:40→22:45)
[2021-10-01] MEDS: Albuterol/Iprat 2.5/0.5MG 3 ML AMPUL.NEB INHALE ×3 (05:31→18:36)
[2021-10-01 05:49] LABS: VBG Base Excess 10.5 mmol/L; VBG HCO3 34 mmol/L (22-26); VBG pCO2 40 mmHg; VBG pH 7.53 (7.32-7.43); VBG pO2 44 mmHg
[2021-10-01 05:53] LABS: Venous Blood Gas Refer to POC result
[2021-10-01 06:13] LABS: Hematocrit 29.1 % (42.0-52.0); Hemoglobin 9.4 g/dl (14.0-18.0); Mean Corpuscular HGB Conc 32.3 g/dl (31.0-36.0); Mean Corpuscular Hemoglobin 31.9 pg (27.0-33.0); Mean Corpuscular Volume 98.6 fL (80.0-98.0); Mean Platelet Volume 10.5 fL (9.4-12.4); NRBC Pct Auto 1.3 /100WBC (0.0-0.2); Platelet Count 120 X10*3/uL (160-400); Red Blood Count 2.95 X10*6/uL (4.60-5.80); Red Cell Distribution Width 16.4 % (11.0-16.0); WBC ABN SCTR FOR CBC 1; White Blood Count 16.7 X10*3/uL (4.8-10.8)
[2021-10-01 06:20] LABS: INTERNATIONAL NORM RATIO 1.8 (0.9-1.1); Prothrombin Time 20.9 SEC (9.9-13.0)
[2021-10-01] MEDS: Heparin Sodium,Porcine 5,000 UNIT/ML VIAL 5000 UNIT SUBCUT ×2 (06:20→18:44)
[2021-10-01 06:22] LABS: Partial Thromboplastin Time 30.5 SEC (24.1-38.0)
[2021-10-01 06:34] LABS: B Type Natriuretic Peptide 2038 pg/mL (<100)
[2021-10-01 06:35] LABS: Atypical Lymph Absolute Manual 0.2 x10*3/uL; Atypical Lymphs Percent Manual 1 % (0-6); Band Neutrophils Percent 16 % (3-5); Lymphocytes Absolute Manual 0.7 X10*3/uL (1.2-4.9); Lymphocytes Percent Manual 4 % (20-40); Metamyelocytes Absolute 2.5 X10*3/uL; Metamyelocytes Percent 15 %; Monocytes Absolute Manual 2.2 X10*3/uL (0.1-1.2); Monocytes Percent Manual 13 % (2-11); Myelocytes Absolute 0.8 X10*/uL; Myelocytes Percent 5 %; Neutrophils Absolute Manual 10.2 X10*3/uL (2.0-8.3); Neutrophils Percent Manual 45 % (45-73); Promyelocytes Absolute 0.2 X10*3/uL; Promyelocytes Percent 1 %
[2021-10-01 06:37] LABS: Macrocytosis 1+ (5-14) /OIF; Platelet Estimate SLIGHTLY DECREASED (NORMAL); Platelet Morphology Comment NORMAL; Polychromasia 1+ (0-2) /OIF; RBC Morphology NOTED
[2021-10-01 06:38] LABS: Nucleated Red Blood Cells 3 /100WBC (0-0); Target Cells 1+ (5-14) /OIF
[2021-10-01] MEDS: dilTIAZem HCL 125 MG in 0.9 % Sodium Chloride 100 ML 15 MG IVCONT (06:44)
[2021-10-01 06:48] LABS: Alanine Aminotransferase 26 U/L (0-40); Alkaline Phosphatase 63 U/L (39-117); Anion Gap 15 (12-20); Aspartate Amino Transferase 59 U/L (5-37); Bilirubin Direct 0.5 mg/dL (0.0-0.5); Bilirubin Total 0.9 mg/dL (0.0-1.0); Blood Urea Nitrogen 31 mg/dL (9-16); Carbon Dioxide 31 mmol/L (22-29); Chloride 108 mmol/L (96-108); Creatinine Clr Calc Pharmacy 67.1; Estimated Glomerular Filt Rate 51; Glucose Random 165 mg/dL (60-115); Phosphorus 2.4 mg/dL (2.7-4.5); Potassium 3.6 mmol/L (3.3-5.1); Sodium 150 mmol/L (135-145); Total Protein 5.9 g/dL (6.5-8.0)
[2021-10-01] MEDS: Chlorhexidine Gluc Oral Rinse 15 ML MOUTHWASH BUCCAL ×3 (07:49→22:08)
[2021-10-01] MEDS: levETIRAcetam in NaCl (iso-os) 1,500 MG/100 ML PIGGYBACK 400 MG IV ×2 (07:49→22:08)
[2021-10-01] MEDS: Nystatin Powder 15 GM BOTTLE 1 APPL TOPICAL ×2 (07:50→22:10)
[2021-10-01] MEDS: KCl 20 mEq in 5 % Dextrose 20 MEQ/1,000 ML IV.SOLN 75 MEQ IVCONT ×2 (11:33→23:39)
[2021-10-01] MEDS: Ketamine HCl/NS 50 MG/5 ML SYRINGE 100 MG IVPUSH ×2 (12:48→19:53)
[2021-10-01 15:06] LABS: Levetiracetam Keppra 64.5 mcg/mL (12.0-46.0)
--- NOTE | 2021-10-01 15:06 | P.PNCC_ITS ---
Subjective Subjective Date of Service: 10/01/21 Interval History: 66-year-old morbidly obese male with chronic persistent atrial fibrillation and previous CVA with residual left hemiparesis background history of seizures on on Keppra and hypertensive with a congestive cardiomyopathy with ejection fraction that I corroborated by bedside echo at 30% presents with abdominal pain and on the x-ray table has witnessed aspiration InStent hypoxemic respiratory failure leading to cardio respiratory arrest and 19 minute resuscitation and probable anoxic time and then overnight it appears in retrospect that 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 in the in the early childhood special educator hours and just received Keppra but was continually in status eventually adding loading dose of Dilantin and then following that valproic acid and then ultimately on propofol and Versed drips and then finally had add ketamine which which was the final drug that actually shut off the the activity so probably had and another reason for very prolonged and anoxic brain Damage it has been weak and several days now off of the propofol and Versed drips and he has absolutely no awakening no response to to pain is 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 and occasionally the right side of his lip and she still and still has brainstem function with brainstem reflexes EEGs done twice spanning 3 days for showed generalized status epilepticus and then and then a a partial status so some improvement but there was severe background encephalopathy which of course is anoxic in origin On the ventilator on high FiO2 that has not changed has controlled atrial fibrillation on Levophed for blood pressure support periodic use of Lasix drip in order to keep his intake and output volumes the same as he has had very severe diastolic CHF with very elevated left heart filling pressures and therefore the pulmonary edema Critical Care Time (minutes): 45 Physical Exam Verdana 4l Vital Signs: Verdana 4d Verdana 4d Vital Signs: Verdana 4d Verdana 4Bd Last Vital Signs Verdana 4d Documentation Supervisor New 4d Documentation Supervisor New 4d Temp 100.6 F H 10/01/21 14:00 Documentation Supervisor New 4d Pulse 97 10/01/21 14:00 Documentation Supervisor New 4d Resp 22 H 10/01/21 13:00 BP 125/65 10/01/21 14:00 Pulse Ox 92 10/01/21 14:00 BMI result Body Mass Index 40.3 Still left hemiparesis and and partial epilepsy involving right lip in her and his right foot and what appears to be more generalized with some jaw jerking we retry Versed 1st with partial benefit and then we usually add a p.r.n. dose of of IV ketamine Bedside cardiac exam with 30% ejection fraction for the left ventricle persistent AFib Lungs without accessory muscle use and and without diaphragmatic effort Abdomen he had prolonged ileus and finally now having bowel movement his is belly did soften after the 1st adeno 24 hours with no palpable organomegaly but there was no pathology on on CT scan Objective Data Labs CBC & Chem 7: 10/01/21 05:45 10/01/21 05:45 Labs: Laboratory Results - last 24 hr 10/01/21 10/01/21 10/01/21 00:55 05:42 05:45 WBC 16.7 H RBC 2.95 L Hgb 9.4 L Hct 29.1 L MCV 98.6 H MCH 31.9 MCHC 32.3 RDW 16.4 H Plt Count 120 L MPV 10.5 Immature Gran % (Auto) Cancelled Neut % (Auto) Cancelled Lymph % (Auto) Cancelled [place] % (Auto) Cancelled Eos % (Auto) Cancelled Baso % (Auto) Cancelled Lymph # (Auto) Cancelled [place] # (Auto) Cancelled Eos # (Auto) Cancelled Baso # (Auto) Cancelled Abs Immat Gran (auto) Cancelled Absolute Neuts (auto) Cancelled Absolute Nucleated RBC 0.220 H Nucleated RBC % (auto) 1.3 H Neutrophils % (Manual) 45 Band Neutrophils % 16 H Lymphocytes % (Manual) 4 L Atypical Lymphs % (Man) 1 Monocytes % (Manual) 13 H Metamyelocytes % 15 Myelocytes % 5 Promyelocytes % 1 Abs Neuts (Manual) 10.2 H Lymphocytes # (Manual) 0.7 L Atyp Lymphs # (Manual) 0.2 Monocytes # (Manual) 2.2 H Metamyelocytes # 2.5 Myelocytes # 0.8 Promyelocytes # 0.2 Nucleated RBCs 3 H Platelet Estimate SLIGHTLY DECREASED Plt Morphology Comment NORMAL RBC Morphology NOTED Polychromasia 1+ (0-2) Macrocytosis 1+ (5-14) Target Cells 1+ (5-14) PT INR APTT VBG pH 7.53 H VBG pCO2 40 VBG pO2 44 VBG HCO3 34 H VBG O2 Saturation 74.0 VBG Base Excess 10.5 Sodium Potassium Chloride Carbon Dioxide Anion Gap BUN Creatinine Estim Creat Clear Calc Estimated GFR Random Glucose Lactic Acid 1.7 Calcium Phosphorus Magnesium Total Bilirubin Direct Bilirubin AST ALT Alkaline Phosphatase B-Natriuretic Peptide Total Protein Albumin 10/01/21 10/01/21 10/01/21 05:45 05:45 05:45 WBC RBC Hgb Hct MCV MCH MCHC RDW Plt Count MPV Immature Gran % (Auto) Neut % (Auto) Lymph % (Auto) [place] % (Auto) Eos % (Auto) Baso % (Auto) Lymph # (Auto) [place] # (Auto) Eos # (Auto) Baso # (Auto) Abs Immat Gran (auto) Absolute Neuts (auto) Absolute Nucleated RBC Nucleated RBC % (auto) Neutrophils % (Manual) Band Neutrophils % Lymphocytes % (Manual) Atypical Lymphs % (Man) Monocytes % (Manual) Metamyelocytes % Myelocytes % Promyelocytes % Abs Neuts (Manual) Lymphocytes # (Manual) Atyp Lymphs # (Manual) Monocytes # (Manual) Metamyelocytes # Myelocytes # Promyelocytes # Nucleated RBCs Platelet Estimate Plt Morphology Comment RBC Morphology Polychromasia Macrocytosis Target Cells PT 20.9 H INR 1.8 H APTT 30.5 VBG pH VBG pCO2 VBG pO2 VBG HCO3 VBG O2 Saturation VBG Base Excess Sodium 150 H Potassium 3.6 Chloride 108 Carbon Dioxide 31 H Anion Gap 15 BUN 31 H Creatinine 1.40 Estim Creat Clear Calc 67.1 Estimated GFR 51 Random Glucose 165 H Lactic Acid Calcium 8.0 L D Phosphorus 2.4 L Magnesium 2.0 Total Bilirubin 0.9 Direct Bilirubin 0.5 AST 59 H ALT 26 Alkaline Phosphatase 63 B-Natriuretic Peptide 2038 H Total Protein 5.9 L Albumin 3.0 L Microbiology Microbiology Results: Microbiology 09/24/21 16:53 Blood - Venous Blood Culture - Final No growth after 5 days. 09/24/21 16:53 Blood - Venous Blood Culture - Final No growth after 5 days. 09/26/21 08:39 Sputum - Suctioned Gram Stain - Final 09/26/21 08:39 Sputum - Suctioned Sputum Culture - Final Rosa albicans 09/20/21 22:37 Blood - Venous Blood Culture - Final No growth after 5 days. 09/20/21 22:31 Blood - Venous Blood Culture - Final No growth after 5 days. 09/24/21 04:50 Urine Catheterized - Pacheco Catheter Urine Culture - Final No growth. Progress Note: A&P Assessment and plan (1) Tinea cruris: Status: Acute (2) Acute anoxic encephalopathy: Status: Acute (3) Aspiration pneumonitis: Status: Acute (4) Hypoxemic respiratory failure, chronic: Status: Acute (5) Ileus, unspecified: Status: Acute (6) Chest pain: Status: Acute (7) Cellulitis: Status: Acute (8) Chronic atrial fibrillation: Status: Acute (9) BPH w urinary obs/LUTS: Status: Acute (10) Hemiparesis, left: Status: Acute (11) Acute exacerbation of CHF (congestive heart failure): Status: Acute (12) Acute on chronic anemia: Status: Acute (13) Pancreatitis: Status: Acute (14) Chronic HFrEF (heart failure with reduced ejection fraction): Status: Acute (15) Cardiomyopathy: Status: Acute (16) Bradycardia: Status: Acute (17) Obesity: Status: Acute (18) HTN (hypertension): Status: Acute Plan I had a discussion today with his sister who is is healthcare proxy with a jockey room custodian and explained that the prognosis for a meaningful recovery of cortical function is a near in possibility and after this amount of time with full support still multiple drugs at maximum doses veno for control of this and intractable refractory epilepsy demonstrates note no signs of cortical function remains comatose no response to deep pain vegetative function with with br ainstem reflexes are still preserved from pupillary light and corneal reflex see no to stay to spontaneous respiratory effort but does not have gag or cough reflex and this is been off sedation now with a implication of very very poor prognosis crit by EEG as well and so in explaining this to the sister have asked her to consult with the rest of the family and come up with a decision because it it might be the time to decide about comfort measures and removal of the ventilator Quality Stroke Does the patient have a stroke diagnosis?: No VTE Prior VTE?: No VTE Risk Level:: Medical - moderate - high VTE Device Contraindication: Treatment Not Indicated VTE Drug Contraindication: N/A - Med Ordered
[2021-10-01] MEDS: Midazolam HCl/PF 2 MG/2 ML VIAL 10 MG IVPUSH (22:46)
[2021-10-01] MEDS: Midazolam HCl/NS 50 MG/50 ML PLAST..BAG 6 MG IVCONT (23:38)
[2021-10-02] VITALS (35 sets, daily range): BP systolic 81–134; BP diastolic 44–77; PULSE 74–134; RESP 17–27; TEMP 34–38.9; O2SAT 85–98
[2021-10-02 00:15] LABS: Glucose, Whole Blood 140 mg/dL (60-115)
[2021-10-02] MEDS: Albuterol/Iprat 2.5/0.5MG 3 ML AMPUL.NEB INHALE ×4 (00:28→17:54)
[2021-10-02] MEDS: Valproic Acid (as Sodium Salt) 500 MG in Dextrose 5 % 50 ML 52.5 MG IV ×4 (00:53→18:34)
[2021-10-02] MEDS: Ketamine HCl/NS 50 MG/5 ML SYRINGE 100 MG IVPUSH (02:11)
[2021-10-02] MEDS: Midazolam HCl/PF 2 MG/2 ML VIAL 6 MG IVPUSH (02:19)
--- NOTE | 2021-10-02 03:10 | PC.NURSE ---
initial contact pt unresponsive displaying muscle twitching and seizure like activity. Pt pupils are PERRL, does not respond to commands or questions and the patient does not have a cough or gag. Pt is not sedated. Pt was noted to have a temp of 102 so ice was applied to the patient. Resp LS are dim throughout. Pt is intubated with a 7.5 that is 25@ lip. ACVC+ R-18, V-500, Peep of5, peep was changed to 7.5 by PA at 0220. 80% o2. Pt does have periods of desaturations and high peak pressures. This occurs with increased seizure activity. Cardiac- pt is in afib in the low 100s with runs to the mid 130s. Pt is edemateous +3 generally. Diltiazem is onboard at 2.5mg. Gi- Pt has rectal tube with liquid, brown stool. Pt BS are hypoactive and belly is large and soft. Pt is on tube feeds at 10ml an hour. Pt had 0 residual at roughly 2200 so tube feed was restarted. Pt has a dotson with good output >60/hr. Skin- pt has stage 2 on bilateral superior buttocks coccyx and was redressed with triad and foam dressing. Pt has had multiple episodes of increased seizure activity and vent dyssynchrony. Pt was medicated with versed and ketamine. Pt was then placed on a versed drip at 6mg with some effect but prolonged breakthrough seizing, so dosing was increased per PA.
[2021-10-02] MEDS: Midazolam HCl/NS 50 MG/50 ML PLAST..BAG 10 MG IVCONT ×4 (04:31→19:33)
[2021-10-02 05:40] LABS: Hemoglobin 8.8 g/dl (14.0-18.0); Mean Corpuscular HGB Conc 32.6 g/dl (31.0-36.0); Mean Corpuscular Hemoglobin 32.5 pg (27.0-33.0); Mean Corpuscular Volume 99.6 fL (80.0-98.0); Mean Platelet Volume 10.3 fL (9.4-12.4); NRBC Pct Auto 1.2 /100WBC (0.0-0.2); Red Blood Count 2.71 X10*6/uL (4.60-5.80); Red Cell Distribution Width 16.6 % (11.0-16.0); White Blood Count 17.3 X10*3/uL (4.8-10.8)
[2021-10-02 05:46] LABS: INTERNATIONAL NORM RATIO 1.8 (0.9-1.1); Prothrombin Time 20.4 SEC (9.9-13.0)
[2021-10-02 05:48] LABS: Partial Thromboplastin Time 32.1 SEC (24.1-38.0)
[2021-10-02 06:00] LABS: B Type Natriuretic Peptide 3013 pg/mL (<100)
[2021-10-02 06:20] LABS: Alanine Aminotransferase 25 U/L (0-40); Albumin Level 2.8 g/dL (3.5-5.0); Alkaline Phosphatase 57 U/L (39-117); Anion Gap 12 (12-20); Aspartate Amino Transferase 58 U/L (5-37); Bilirubin Direct 0.5 mg/dL (0.0-0.5); Bilirubin Total 0.8 mg/dL (0.0-1.0); Blood Urea Nitrogen 34 mg/dL (9-16); Calcium 8.1 mg/dL (8.4-10.2); Carbon Dioxide 34 mmol/L (22-29); Chloride 105 mmol/L (96-108); Creatinine Clr Calc Pharmacy 71.2; Estimated Glomerular Filt Rate 55; Glucose Random 195 mg/dL (60-115); Potassium 3.2 mmol/L (3.3-5.1); Sodium 148 mmol/L (135-145); Total Protein 5.7 g/dL (6.5-8.0)
[2021-10-02 06:24] LABS: Band Neutrophils Percent 15 % (3-5); Lymphocytes Absolute Manual 1.4 X10*3/uL (1.2-4.9); Lymphocytes Percent Manual 8 % (20-40); Metamyelocytes Percent 6 %; Monocytes Absolute Manual 1.6 X10*3/uL (0.1-1.2); Monocytes Percent Manual 9 % (2-11); Myelocytes Absolute 0.3 X10*/uL; Myelocytes Percent 2 %; Neutrophils Absolute Manual 12.8 X10*3/uL (2.0-8.3); Neutrophils Percent Manual 59 % (45-73); Nucleated Red Blood Cells 4 /100WBC (0-0); Promyelocytes Absolute 0.2 X10*3/uL; Promyelocytes Percent 1 %
[2021-10-02 06:25] LABS: Macrocytosis 1+ (5-14) /OIF; Platelet Estimate DECREASED (NORMAL); Platelet Morphology Comment NORMAL; Polychromasia 1+ (0-2) /OIF; RBC Morphology NOTED; Target Cells 1+ (5-14) /OIF
[2021-10-02 06:27] LABS: Platelet Count 99 X10*3/uL (160-400)
[2021-10-02] MEDS: Heparin Sodium,Porcine 5,000 UNIT/ML VIAL 5000 UNIT SUBCUT ×2 (06:40→18:40)
[2021-10-02] MEDS: 0.9 % Sodium Chloride Flush 3 ML SYRINGE IVFLUSH ×3 (08:46→23:27)
[2021-10-02 09:27] LABS: VBG Base Excess 13.8 mmol/L; VBG HCO3 37 mmol/L (22-26); VBG pCO2 41 mmHg; VBG pH 7.56 (7.32-7.43); VBG pO2 40 mmHg
[2021-10-02] MEDS: Chlorhexidine Gluc Oral Rinse 15 ML MOUTHWASH BUCCAL ×3 (09:28→20:07)
[2021-10-02 09:33] LABS: Venous Blood Gas Refer to POC result
[2021-10-02] MEDS: levETIRAcetam in NaCl (iso-os) 1,500 MG/100 ML PIGGYBACK 400 MG IV ×2 (09:34→20:07)
[2021-10-02] MEDS: Nystatin Powder 15 GM BOTTLE 1 APPL TOPICAL ×2 (09:41→20:49)
--- NOTE | 2021-10-02 10:08 | MHC.CLN ---
F/U PT REMAINS INTUBATED DISCUSSED AT ROUNDS; NOTED TEMP 102 TF CURRENTLY RUNNING AT 20ML/HR AND TOLERATING AT THIS TIME RECOMMEND PROMOTE AT MAX GOAL RATE 60ML/HR TO PROVIDE 1440KCALS, 90G PROTEIN (1.2G), 1928CC TOTAL FREE WATER FROM FORMULA AND FLUSHES (27.5ML/KG BASED ON IBW) ADJUST FREE WATER FLUSHES NEEDED R/T FEVER CONTINUE TO MONITOR TOLERANCE, RESIDUALS AND LYTES GOALS OF CARE POSSIBLE SERVICE EMPLOYEE PER FAMILY-FOLLOWING WITH TEAM
[2021-10-02] MEDS: dilTIAZem HCL 125 MG in 0.9 % Sodium Chloride 100 ML IVCONT (10:33)
--- NOTE | 2021-10-02 13:19 | P.PNCC_ITS ---
Subjective Subjective Date of Service: 10/02/21 Interval History: 66-year-old gentleman with underlying AFib and CVA with residual left hemiparesis, also seizures on Keppra, chronic systolic congestive heart failure admitted on 09/20/2021 with cellulitis, who developed abdominal pain and had CT chest on 09/24/2021 complicated by aspiration and cardiac arrest with CPR for approximately 20 minutes, transferred to intensive care unit intubated thereafter and noted to have EEG 08/26/2030 consistent with anoxic encephalopathy and be in persistent status epilepticus despite a multitude of anti epileptic medications including Keppra, Dilantin, valproic acid, benzodiazepines, propofol, and ketamine. Patient remains encephalopathic and in status with essentially no neurologic improvements since the time of his cardiac arrest. No events overnight. Critical Care Time (minutes): 45 Physical Exam Verdana 4l Vital Signs: Verdana 4d Verdana 4d Vital Signs: Verdana 4d Verdana 4Bd Last Vital Signs Verdana 4d Machine Printer Hose New 4d Machine Printer Hose New 4d Temp 99.3 F 10/02/21 08:00 Machine Printer Hose New 4d Pulse 97 10/02/21 12:03 Machine Printer Hose New 4d Resp 21 H 10/02/21 12:03 BP 124/61 10/02/21 11:00 Pulse Ox 95 10/02/21 11:00 BMI result Body Mass Index 40.3 Const: General: no acute distress Eyes: Sclerae: sclerae normal Neck: Neck: Yes no lymphadenopathy, Yes trachea midline and Yes supple Resp: Auscultation: crackles ( bibasilar) Cardio: Rate: tachycardic Rhythm: abnormal rhythm irregularly irregular Heart sounds: no gallops, no murmurs and no rubs GI: Palpation (GI): Soft to palpation and Other GI palpation findings present ( Nontender) Auscultation: normal bowel sounds Extrem: General: No clubbing, No cyanosis and Yes pedal edema ( 1+ bilateral) Objective Data Labs CBC & Chem 7: 10/02/21 05:15 10/02/21 05:15 Labs: Laboratory Results - last 24 hr 09/27/21 10/01/21 10/02/21 13:58 05:45 00:12 WBC RBC Hgb Hct MCV MCH MCHC RDW Plt Count MPV Immature Gran % (Auto) Neut % (Auto) Lymph % (Auto) [place] % (Auto) Eos % (Auto) Baso % (Auto) Lymph # (Auto) [place] # (Auto) Eos # (Auto) Baso # (Auto) Abs Immat Gran (auto) Absolute Neuts (auto) Absolute Nucleated RBC Nucleated RBC % (auto) Neutrophils % (Manual) Band Neutrophils % Lymphocytes % (Manual) Monocytes % (Manual) Metamyelocytes % Myelocytes % Promyelocytes % Abs Neuts (Manual) Lymphocytes # (Manual) Monocytes # (Manual) Metamyelocytes # Myelocytes # Promyelocytes # Nucleated RBCs Platelet Estimate Plt Morphology Comment RBC Morphology Polychromasia Macrocytosis Target Cells Smear Path Review PT INR APTT VBG pH VBG pCO2 VBG pO2 VBG HCO3 VBG O2 Saturation VBG Base Excess Sodium Potassium Chloride Carbon Dioxide Anion Gap BUN Creatinine Estim Creat Clear Calc Estimated GFR POC Glucose 140 H Random Glucose Calcium Phosphorus Total Bilirubin Direct Bilirubin AST ALT Alkaline Phosphatase B-Natriuretic Peptide Total Protein Albumin Levetiracetam 64.5 H 10/02/21 10/02/21 10/02/21 05:15 05:15 05:15 WBC 17.3 H RBC 2.71 L Hgb 8.8 L Hct 27.0 L MCV 99.6 H MCH 32.5 MCHC 32.6 RDW 16.6 H Plt Count 99 L MPV 10.3 Immature Gran % (Auto) Cancelled Neut % (Auto) Cancelled Lymph % (Auto) Cancelled [place] % (Auto) Cancelled Eos % (Auto) Cancelled Baso % (Auto) Cancelled Lymph # (Auto) Cancelled [place] # (Auto) Cancelled Eos # (Auto) Cancelled Baso # (Auto) Cancelled Abs Immat Gran (auto) Cancelled Absolute Neuts (auto) Cancelled Absolute Nucleated RBC 0.200 H Nucleated RBC % (auto) 1.2 H Neutrophils % (Manual) 59 Band Neutrophils % 15 H Lymphocytes % (Manual) 8 L Monocytes % (Manual) 9 Metamyelocytes % 6 Myelocytes % 2 Promyelocytes % 1 Abs Neuts (Manual) 12.8 H Lymphocytes # (Manual) 1.4 Monocytes # (Manual) 1.6 H Metamyelocytes # 1.0 Myelocytes # 0.3 Promyelocytes # 0.2 Nucleated RBCs 4 H Platelet Estimate DECREASED Plt Morphology Comment NORMAL RBC Morphology NOTED Polychromasia 1+ (0-2) Macrocytosis 1+ (5-14) Target Cells 1+ (5-14) Smear Path Review PT 20.4 H INR 1.8 H APTT 32.1 VBG pH VBG pCO2 VBG pO2 VBG HCO3 VBG O2 Saturation VBG Base Excess Sodium 148 H Potassium 3.2 L Chloride 105 Carbon Dioxide 34 H Anion Gap 12 BUN 34 H Creatinine 1.32 Estim Creat Clear Calc 71.2 Estimated GFR 55 POC Glucose Random Glucose 195 H Calcium 8.1 L Phosphorus 2.0 L Total Bilirubin 0.8 Direct Bilirubin 0.5 AST 58 H ALT 25 Alkaline Phosphatase 57 B-Natriuretic Peptide Total Protein 5.7 L Albumin 2.8 L Levetiracetam 10/02/21 10/02/21 05:15 05:19 WBC RBC Hgb Hct MCV MCH MCHC RDW Plt Count MPV Immature Gran % (Auto) Neut % (Auto) Lymph % (Auto) [place] % (Auto) Eos % (Auto) Baso % (Auto) Lymph # (Auto) [place] # (Auto) Eos # (Auto) Baso # (Auto) Abs Immat Gran (auto) Absolute Neuts (auto) Absolute Nucleated RBC Nucleated RBC % (auto) Neutrophils % (Manual) Band Neutrophils % Lymphocytes % (Manual) Monocytes % (Manual) Metamyelocytes % Myelocytes % Promyelocytes % Abs Neuts (Manual) Lymphocytes # (Manual) Monocytes # (Manual) Metamyelocytes # Myelocytes # Promyelocytes # Nucleated RBCs Platelet Estimate Plt Morphology Comment RBC Morphology Polychromasia Macrocytosis Target Cells Smear Path Review PT INR APTT VBG pH 7.56 H VBG pCO2 41 VBG pO2 40 VBG HCO3 37 H VBG O2 Saturation 67.0 VBG Base Excess 13.8 Sodium Potassium Chloride Carbon Dioxide Anion Gap BUN Creatinine Estim Creat Clear Calc Estimated GFR POC Glucose Random Glucose Calcium Phosphorus Total Bilirubin Direct Bilirubin AST ALT Alkaline Phosphatase B-Natriuretic Peptide 3013 H Total Protein Albumin Levetiracetam Microbiology Microbiology Results: Microbiology 10/01/21 01:48 Blood - Venous Blood Culture - Preliminary Prelim: GPC Gram Stain only 10/01/21 01:48 Blood - Venous Blood Culture - Preliminary No growth after 24 hours. 09/24/21 16:53 Blood - Venous Blood Culture - Final No growth after 5 days. 09/24/21 16:53 Blood - Venous Blood Culture - Final No growth after 5 days. 09/26/21 08:39 Sputum - Suctioned Gram Stain - Final 09/26/21 08:39 Sputum - Suctioned Sputum Culture - Final Rosa albicans 09/20/21 22:37 Blood - Venous Blood Culture - Final No growth after 5 days. 09/20/21 22:31 Blood - Venous Blood Culture - Final No growth after 5 days. 09/24/21 04:50 Urine Catheterized - P[place]co Catheter Urine Culture - Final No growth. Progress Note: A&P Assessment and plan (1) Acute anoxic encephalopathy: Status: Acute (2) Aspiration pneumonitis: Status: Acute (3) Hemiparesis, left: Status: Acute (4) Acute exacerbation of CHF (congestive heart failure): Status: Acute (5) Status epilepticus: Status: Acute Plan Assessment: 66-year-old gentleman with underlying seizure disorder, prior CVA CHF, hypertension admitted with cellulitis with hospital course complicated by aspiration event resulting in cardiac arrest further complicated by anoxic encephalopathy with persistent status epilepticus Plan: Neuro: Anoxic encephalopathy with persistent status epilepticus refractory to antiepileptic therapy after cardiac arrest on the background of prior CVA and seizure disorder. Overall prognosis terminal. Discussions of goals of care are ongoing with the family. Cardiac: Acute on chronic systolic congestive heart failure, continues diuretic. AFib with episodes of RVR, continues on Cardizem and metoprolol. Pulmonary: Pulmonary aspiration resulting in cardiac arrest intubated during the CPR. Continue on ventilatory support for airway protection on the background of ongoing status epilepticus. Renal: No acute issues. Endo: No acute issues. GI: No acute issues. ID: No acute issues Heme/Onc: No acute issues. Psych: No acute issues. Miscellaneous: No acute issues. Prophylaxis: heparin, omeprazole Diet: tube feeds Critical care time spent: 45 minutes Quality Stroke Does the patient have a stroke diagnosis?: No VTE Prior VTE?: No VTE Risk Level:: Medical - moderate - high VTE Device Contraindication: Treatment Not Indicated VTE Drug Contraindication: N/A - Med Ordered
[2021-10-02] MEDS: KCl 20 mEq in 5 % Dextrose 20 MEQ/1,000 ML IV.SOLN 75 MEQ IVCONT (13:36)
--- NOTE | 2021-10-02 13:46 | MHC.CM.PN ---
Pt remains in ICU following cardiac arrest/resuscitation. Now with prolonged seizure activity that was unresponsive to multiple medications. EEG supports an anoxic brain injury with little chance for survival. MD is awaiting a callback from family re: goals of care and withdrawal of supportive care. CM to follow
[2021-10-02] MEDS: propofoL 1,000 MG/100 ML VIAL 14.42 MG IVCONT (15:21)
[2021-10-02] MEDS: Furosemide 200 MG in 0.9 % Sodium Chloride 80 ML IVCONT (16:20)
[2021-10-02] MEDS: propofoL 1,000 MG/100 ML VIAL 18.03 MG IVCONT (20:47)
[2021-10-03] VITALS (36 sets, daily range): BP systolic 88–141; BP diastolic 47–80; PULSE 78–124; RESP 17–34; TEMP 33–38.3; O2SAT 84–99
[2021-10-03] MEDS: dilTIAZem HCL 125 MG in 0.9 % Sodium Chloride 100 ML 10 MG IVCONT ×2 (00:03→12:37)
[2021-10-03] MEDS: Midazolam HCl/NS 50 MG/50 ML PLAST..BAG 10 MG IVCONT ×5 (00:10→20:14)
[2021-10-03] MEDS: Valproic Acid (as Sodium Salt) 500 MG in Dextrose 5 % 50 ML 52.5 MG IV ×4 (00:12→18:11)
[2021-10-03] MEDS: Albuterol Sulfate (0.083%) 2.5 MG/3 ML VIAL.NEB INHALE ×2 (01:00→04:29)
[2021-10-03] MEDS: Ketamine HCl/NS 50 MG/5 ML SYRINGE 100 MG IVPUSH ×2 (01:49→05:19)
[2021-10-03] MEDS: propofoL 1,000 MG/100 ML VIAL 18.03 MG IVCONT ×3 (02:30→12:36)
[2021-10-03 05:22] LABS: Hematocrit 27.9 % (42.0-52.0); Hemoglobin 9.1 g/dl (14.0-18.0); Mean Corpuscular HGB Conc 32.6 g/dl (31.0-36.0); Mean Corpuscular Hemoglobin 32.5 pg (27.0-33.0); Mean Corpuscular Volume 99.6 fL (80.0-98.0); Mean Platelet Volume 9.9 fL (9.4-12.4); NRBC Pct Auto 1.9 /100WBC (0.0-0.2); Platelet Count 110 X10*3/uL (160-400); Red Cell Distribution Width 16.5 % (11.0-16.0)
[2021-10-03 05:26] LABS: VBG Base Excess 16.6 mmol/L; VBG HCO3 41 mmol/L (22-26); VBG pCO2 49 mmHg; VBG pH 7.52 (7.32-7.43); VBG pO2 60 mmHg
[2021-10-03 05:26] LABS: Venous Blood Gas Refer to POC result
[2021-10-03 05:42] LABS: Band Neutrophils Percent 4 % (3-5); Large Platelet PRESENT; Lymphocytes Absolute Manual 2.4 X10*3/uL (1.2-4.9); Lymphocytes Percent Manual 10 % (20-40); Macrocytosis 1+ (5-14) /OIF; Metamyelocytes Absolute 1.2 X10*3/uL; Metamyelocytes Percent 5 %; Monocytes Absolute Manual 2.4 X10*3/uL (0.1-1.2); Monocytes Percent Manual 10 % (2-11); Myelocytes Absolute 1.2 X10*/uL; Myelocytes Percent 5 %; Neutrophils Absolute Manual 16.6 X10*3/uL (2.0-8.3); Neutrophils Percent Manual 65 % (45-73); Nucleated Red Blood Cells 4 /100WBC (0-0); Platelet Estimate DECREASED (NORMAL); Platelet Morphology Comment NOTED; Polychromasia 1+ (0-2) /OIF; Promyelocytes Absolute 0.2 X10*3/uL; Promyelocytes Percent 1 %; RBC Morphology NOTED; Target Cells 1+ (5-14) /OIF
[2021-10-03 05:45] LABS: Albumin Level 2.9 g/dL (3.5-5.0); Anion Gap 14 (12-20); Blood Urea Nitrogen 35 mg/dL (9-16); Calcium 8.1 mg/dL (8.4-10.2); Carbon Dioxide 35 mmol/L (22-29); Chloride 101 mmol/L (96-108); Creatinine Clr Calc Pharmacy 78.3; Estimated Glomerular Filt Rate > 60; Glucose Random 207 mg/dL (60-115); Phosphorus 2.8 mg/dL (2.7-4.5); Potassium 3.4 mmol/L (3.3-5.1); Sodium 147 mmol/L (135-145)
[2021-10-03] MEDS: Heparin Sodium,Porcine 5,000 UNIT/ML VIAL 5000 UNIT SUBCUT ×2 (06:00→18:11)
[2021-10-03] MEDS: Potassium Chloride/H20 40 MEQ/100 ML PIGGYBACK 50 MEQ IV (07:16)
[2021-10-03] MEDS: 0.9 % Sodium Chloride Flush 3 ML SYRINGE IVFLUSH ×2 (07:18→16:16)
[2021-10-03] MEDS: Albuterol/Iprat 2.5/0.5MG 3 ML AMPUL.NEB INHALE ×4 (08:21→19:58)
[2021-10-03] MEDS: Chlorhexidine Gluc Oral Rinse 15 ML MOUTHWASH BUCCAL ×3 (09:40→20:51)
[2021-10-03] MEDS: levETIRAcetam in NaCl (iso-os) 1,500 MG/100 ML PIGGYBACK 400 MG IV ×2 (09:42→20:00)
[2021-10-03] MEDS: Nystatin Powder 15 GM BOTTLE 1 APPL TOPICAL ×2 (09:47→22:15)
[2021-10-03] MEDS: Ketamine HCl 500 MG/5 ML VIAL 100 MG IVPUSH (12:36)
[2021-10-03] MEDS: Furosemide 200 MG in 0.9 % Sodium Chloride 80 ML IVCONT (12:44)
--- NOTE | 2021-10-03 14:16 | PM.CCPN ---
Subjective Subjective Date of Service: 10/03/21 Interval History: 66-year-old gentleman with underlying AFib and CVA with residual left hemiparesis, also seizures on Keppra, chronic systolic congestive heart failure admitted on 09/20/2021 with cellulitis, who developed abdominal pain and had CT chest on 09/24/2021 complicated by aspiration and cardiac arrest with CPR for approximately 20 minutes, transferred to intensive care unit intubated thereafter and noted to have EEG 08/26/2030 consistent with anoxic encephalopathy and be in persistent status epilepticus despite a multitude of anti epileptic medications including Keppra, Dilantin, valproic acid, benzodiazepines, propofol, and ketamine. Patient remains encephalopathic and in status with essentially no neurologic improvements since the time of his cardiac arrest. No events overnight. Continues to have breakthrough seizures despite high-dose Versed drip, propofol, Keppra, valproate, Dilantin, and ketamine pushes. Critical Care Time (minutes): 60 Physical Exam Vital Signs: Vital Signs: Last Vital Signs Temp 100 F 10/03/21 13:00 Pulse 100 10/03/21 13:00 Resp 22 H 10/03/21 13:00 BP 119/78 10/03/21 13:00 Pulse Ox 88 L 10/03/21 13:00 BMI result Body Mass Index 40.3 Const: General: no acute distress and other ( sedated on the vent, intermittent breakthrough seizures) Eyes: Sclerae: sclerae normal Neck: Neck: Yes no lymphadenopathy, Yes trachea midline and Yes supple Resp: Auscultation: crackles ( diffuse bilateral) Cardio: Rate: regular rate Rhythm: abnormal rhythm irregularly irregular Heart sounds: no gallops, no murmurs and no rubs GI: Palpation (GI): Soft to palpation and Other GI palpation findings present ( Nontender) Auscultation: normal bowel sounds Extrem: General: No clubbing, No cyanosis and Yes pedal edema ( 1+ bilateral) Objective Data Labs CBC & Chem 7: 10/03/21 05:15 10/03/21 05:15 Labs: Laboratory Results - last 24 hr 10/03/21 10/03/21 10/03/21 05:15 05:15 05:20 WBC 24.0 H RBC 2.80 L Hgb 9.1 L Hct 27.9 L MCV 99.6 H MCH 32.5 MCHC 32.6 RDW 16.5 H Plt Count 110 L MPV 9.9 Immature Gran % (Auto) Cancelled Neut % (Auto) Cancelled Lymph % (Auto) Cancelled [place] % (Auto) Cancelled Eos % (Auto) Cancelled Baso % (Auto) Cancelled Lymph # (Auto) Cancelled [place] # (Auto) Cancelled Eos # (Auto) Cancelled Baso # (Auto) Cancelled Abs Immat Gran (auto) Cancelled Absolute Neuts (auto) Cancelled Absolute Nucleated RBC 0.460 H Nucleated RBC % (auto) 1.9 H Neutrophils % (Manual) 65 Band Neutrophils % 4 Lymphocytes % (Manual) 10 L Monocytes % (Manual) 10 Metamyelocytes % 5 Myelocytes % 5 Promyelocytes % 1 Abs Neuts (Manual) 16.6 H Lymphocytes # (Manual) 2.4 Monocytes # (Manual) 2.4 H Metamyelocytes # 1.2 Myelocytes # 1.2 Promyelocytes # 0.2 Nucleated RBCs 4 H Platelet Estimate DECREASED Large Platelets PRESENT Plt Morphology Comment NOTED RBC Morphology NOTED Polychromasia 1+ (0-2) Macrocytosis 1+ (5-14) Target Cells 1+ (5-14) VBG pH 7.52 H VBG pCO2 49 VBG pO2 60 VBG HCO3 41 H VBG O2 Saturation 86.0 VBG Base Excess 16.6 Sodium 147 H Potassium 3.4 Chloride 101 Carbon Dioxide 35 H Anion Gap 14 BUN 35 H Creatinine 1.20 Estim Creat Clear Calc 78.3 Estimated GFR > 60 Random Glucose 207 H Calcium 8.1 L Phosphorus 2.8 Magnesium 2.0 Albumin 2.9 L Microbiology Microbiology Results: Microbiology 10/01/21 01:48 Blood - Venous Blood Culture - Preliminary No growth after 48 hours. 10/01/21 01:48 Blood - Venous Blood Culture - Final Coag negative Staphylococcus 09/24/21 16:53 Blood - Venous Blood Culture - Final No growth after 5 days. 09/24/21 16:53 Blood - Venous Blood Culture - Final No growth after 5 days. 09/26/21 08:39 Sputum - Suctioned Gram Stain - Final 09/26/21 08:39 Sputum - Suctioned Sputum Culture - Final Rosa albicans 09/20/21 22:37 Blood - Venous Blood Culture - Final No growth after 5 days. 09/20/21 22:31 Blood - Venous Blood Culture - Final No growth after 5 days. 09/24/21 04:50 Urine Catheterized - Pacheco Catheter Urine Culture - Final No growth. Progress Note: A&P Assessment and plan (1) Status epilepticus: Status: Acute (2) Acute anoxic encephalopathy: Status: Acute (3) Aspiration pneumonitis: Status: Acute (4) Acute respiratory failure with hypoxia: Status: Acute (5) Chronic atrial fibrillation: Status: Acute (6) Chronic HFrEF (heart failure with reduced ejection fraction): Status: Acute Plan Assessment: 66-year-old gentleman with underlying seizure disorder, prior CVA CHF, hypertension admitted with cellulitis with hospital course complicated by aspiration event from ?ileus resulting in cardiac arrest further complicated by anoxic encephalopathy with persistent status epilepticus Plan: Neuro: Anoxic encephalopathy with persistent status epilepticus refractory to antiepileptic therapy after cardiac arrest on the background of prior CVA and seizure disorder. Overall prognosis terminal. Discussions of goals of care are ongoing with the family. Cardiac: Acute on chronic systolic congestive heart failure, continues diuretic drip. AFib with episodes of RVR, continues on Cardizem and metoprolol. Pulmonary: Pulmonary aspiration resulting in cardiac arrest intubated during the CPR. Continue on ventilatory support for airway protection on the background of ongoing status epilepticus. Renal: No acute issues. Endo: No acute issues. GI: No acute issues. ID: No acute issues Heme/Onc: No acute issues. Psych: No acute issues. Miscellaneous: prolonged family discussion held about goals of care. Family continues to discuss goals of care. Prophylaxis: heparin, omeprazole Diet: tube feeds Critical care time spent: minutes Quality Stroke Does the patient have a stroke diagnosis?: No VTE Prior VTE?: No VTE Risk Level:: Medical - moderate - high VTE Device Contraindication: Treatment Not Indicated VTE Drug Contraindication: N/A - Med Ordered
--- NOTE | 2021-10-03 14:54 | PC.NURSE ---
Skin/Wound assessment completed. Patient has a venous ulcer to left borrego- Hydrofera blue applied covered with foam dressing. Patient also has Stage 2 pressure ulcers to bilateral buttocks with healing areas- thin layer of Triad applied with Hydrofera blue over it covered with large coccyx foam dressing. Turning and repositioning is occurring.
[2021-10-03] MEDS: propofoL 1,000 MG/100 ML VIAL 21.64 MG IVCONT ×2 (16:26→20:47)
[2021-10-04] VITALS (37 sets, daily range): BP systolic 77–148; BP diastolic 27–73; PULSE 74–132; RESP 18–23; TEMP 33.6–38.8; O2SAT 86–97
[2021-10-04] MEDS: Valproic Acid (as Sodium Salt) 500 MG in Dextrose 5 % 50 ML 52.5 MG IV ×4 (00:11→18:30)
[2021-10-04] MEDS: propofoL 1,000 MG/100 ML VIAL 21.64 MG IVCONT ×6 (00:33→20:51)
[2021-10-04] MEDS: Acetaminophen Oral Liquid 650 MG/20.3 ML SOLUTION PO ×2 (01:09→06:04)
[2021-10-04] MEDS: Midazolam HCl/NS 50 MG/50 ML PLAST..BAG 10 MG IVCONT ×5 (01:09→19:47)
[2021-10-04] MEDS: dilTIAZem HCL 125 MG in 0.9 % Sodium Chloride 100 ML 10 MG IVCONT ×2 (01:14→12:59)
[2021-10-04 05:34] LABS: VBG Base Excess 17.3 mmol/L; VBG HCO3 42 mmol/L (22-26); VBG pCO2 52 mmHg; VBG pH 7.51 (7.32-7.43); VBG pO2 50 mmHg
[2021-10-04] MEDS: Heparin Sodium,Porcine 5,000 UNIT/ML VIAL 5000 UNIT SUBCUT ×2 (06:04→18:30)
[2021-10-04 06:26] LABS: Hematocrit 26.2 % (42.0-52.0); Hemoglobin 8.5 g/dl (14.0-18.0); Mean Corpuscular HGB Conc 32.4 g/dl (31.0-36.0); Mean Corpuscular Hemoglobin 32.2 pg (27.0-33.0); Mean Corpuscular Volume 99.2 fL (80.0-98.0); Mean Platelet Volume 10.6 fL (9.4-12.4); Platelet Count 119 X10*3/uL (160-400); Red Blood Count 2.64 X10*6/uL (4.60-5.80); Red Cell Distribution Width 17.2 % (11.0-16.0); White Blood Count 22.1 X10*3/uL (4.8-10.8)
[2021-10-04 06:44] LABS: NRBC Pct Auto 2.4 /100WBC (0.0-0.2)
[2021-10-04 06:58] LABS: Albumin Level 2.7 g/dL (3.5-5.0); Anion Gap 16 (12-20); Blood Urea Nitrogen 36 mg/dL (9-16); Calcium 8.2 mg/dL (8.4-10.2); Carbon Dioxide 35 mmol/L (22-29); Chloride 102 mmol/L (96-108); Creatinine Clr Calc Pharmacy 71.2; Estimated Glomerular Filt Rate 55; Glucose Random 241 mg/dL (60-115); Phosphorus 2.9 mg/dL (2.7-4.5); Potassium 3.8 mmol/L (3.3-5.1); Sodium 149 mmol/L (135-145)
[2021-10-04] MEDS: 0.9 % Sodium Chloride Flush 3 ML SYRINGE IVFLUSH ×2 (07:13→15:42)
[2021-10-04] MEDS: Chlorhexidine Gluc Oral Rinse 15 ML MOUTHWASH BUCCAL ×3 (07:20→20:53)
[2021-10-04] MEDS: Nystatin Powder 15 GM BOTTLE 1 APPL TOPICAL ×2 (07:22→22:30)
[2021-10-04 08:23] LABS: Venous Blood Gas Refer to POC result
[2021-10-04] MEDS: Furosemide 200 MG in 0.9 % Sodium Chloride 80 ML IVCONT (08:27)
[2021-10-04 08:35] LABS: Band Neutrophils Percent 19 % (3-5); Lymphocytes Absolute Manual 2.2 X10*3/uL (1.2-4.9); Lymphocytes Percent Manual 10 % (20-40); Metamyelocytes Absolute 0.4 X10*3/uL; Metamyelocytes Percent 2 %; Monocytes Absolute Manual 0.9 X10*3/uL (0.1-1.2); Monocytes Percent Manual 4 % (2-11); Myelocytes Absolute 0.2 X10*/uL; Myelocytes Percent 1 %; Neutrophils Absolute Manual 17.7 X10*3/uL (2.0-8.3); Neutrophils Percent Manual 61 % (45-73); Nucleated Red Blood Cells 1 /100WBC (0-0); Promyelocytes Absolute 0.7 X10*3/uL; Promyelocytes Percent 3 %
[2021-10-04 08:36] LABS: RBC Morphology NOTED
[2021-10-04 08:37] LABS: Macrocytosis 1+ (5-14) /OIF; Polychromasia 1+ (0-2) /OIF
[2021-10-04 08:38] LABS: Hypochromasia 1+ (5-14) /OIF; Platelet Estimate SLIGHTLY DECREASED (NORMAL)
[2021-10-04 08:39] LABS: Platelet Morphology Comment NORMAL
[2021-10-04] MEDS: Albuterol/Iprat 2.5/0.5MG 3 ML AMPUL.NEB INHALE ×4 (08:48→19:44)
[2021-10-04] MEDS: levETIRAcetam in NaCl (iso-os) 1,500 MG/100 ML PIGGYBACK 400 MG IV ×2 (09:30→21:01)
[2021-10-04] MEDS: Albumin Human 25 % 100 ML IV ×3 (09:33→21:04)
--- NOTE | 2021-10-04 11:26 | MHC.CLN ---
F/U PT REMAINS INTUBATED DISCUSSED AT ROUNDS PT RECEIVING PROMOTE AT MAX GOAL RATE 60ML/HR PROVIDES 1440KCALS, 90G PROTEIN (1.2G), 1928CC TOTAL FREE WATER FROM FORMULA AND FLUSHES (27.5ML/KG BASED ON IBW) ADJUST FREE WATER FLUSHES NEEDED R/T FEVER CONTINUE TO MONITOR TOLERANCE, RESIDUALS AND LYTES
--- NOTE | 2021-10-04 13:02 | MHC.CM.PN ---
Pt continues on ventilatory support s/p cardiac resusitation resulting in ongoing seizures and confirmed anoxic brain injury. MD has been in contact almost daily with the family discussing the terminal prognosis of the pt, however, family is opting for ongoing full supportive care. CM to follow for d/c planning
--- NOTE | 2021-10-04 14:17 | P.PNCC_ITS ---
Subjective Subjective Date of Service: 10/04/21 Interval History: 66-year-old gentleman with underlying AFib and CVA with residual left hemiparesis, also seizures on Keppra, chronic systolic congestive heart failure admitted on 09/20/2021 with cellulitis, who developed abdominal pain and had CT chest on 09/24/2021 complicated by aspiration and cardiac arrest with CPR for approximately 20 minutes, transferred to intensive care unit intubated thereafter and noted to have EEG 08/26/2030 consistent with anoxic encephalopathy and be in persistent status epilepticus despite a multitude of anti epileptic medications including Keppra, Dilantin, valproic acid, benzodiazepines, propofol, and ketamine. Patient remains encephalopathic and in status with essentially no neurologic improvements since the time of his cardiac arrest. No events overnight. Continues to have breakthrough seizures despite high-dose Versed drip, propofol, Keppra, valproate, Dilantin, and ketamine pushes. No significant changes in the last 24 hours in his seizures. FiO2 requirements are worsening. Critical Care Time (minutes): 45 Physical Exam Vital Signs: Vital Signs: Last Vital Signs Temp 101.1 F H 10/04/21 13:00 Pulse 107 H 10/04/21 13:00 Resp 20 10/04/21 13:00 BP 111/58 L 10/04/21 13:00 Pulse Ox 96 10/04/21 13:00 BMI result Body Mass Index 40.3 Const: General: no acute distress and other ( Sedated on the vent, still with breakthrough seizures) Eyes: Sclerae: sclerae normal EOM: EOMs intact bilaterally Neck: Neck: Yes no lymphadenopathy, Yes trachea midline and Yes supple Resp: Auscultation: crackles ( diffuse bilateral) Cardio: Rate: regular rate Rhythm: regular rhythm Heart sounds: no gallops, no murmurs and no rubs GI: Palpation (GI): Soft to palpation and Other GI palpation findings present ( Nontender) Auscultation: normal bowel sounds Extrem: General: No clubbing, No cyanosis and Yes pedal edema ( 2+ taut bilateral) Objective Data Labs CBC & Chem 7: 10/04/21 05:30 10/04/21 05:30 Labs: Laboratory Results - last 24 hr 10/04/21 10/04/21 10/04/21 05:27 05:30 05:30 WBC 22.1 H RBC 2.64 L Hgb 8.5 L Hct 26.2 L MCV 99.2 H MCH 32.2 MCHC 32.4 RDW 17.2 H Plt Count 119 L MPV 10.6 Immature Gran % (Auto) Cancelled Neut % (Auto) Cancelled Lymph % (Auto) Cancelled [place] % (Auto) Cancelled Eos % (Auto) Cancelled Baso % (Auto) Cancelled Lymph # (Auto) Cancelled [place] # (Auto) Cancelled Eos # (Auto) Cancelled Baso # (Auto) Cancelled Abs Immat Gran (auto) Cancelled Absolute Neuts (auto) Cancelled Absolute Nucleated RBC 0.530 H Nucleated RBC % (auto) 2.4 H Neutrophils % (Manual) 61 Band Neutrophils % 19 H Lymphocytes % (Manual) 10 L Monocytes % (Manual) 4 Metamyelocytes % 2 Myelocytes % 1 Promyelocytes % 3 Abs Neuts (Manual) 17.7 H Lymphocytes # (Manual) 2.2 Monocytes # (Manual) 0.9 Metamyelocytes # 0.4 Myelocytes # 0.2 Promyelocytes # 0.7 Nucleated RBCs 1 H Platelet Estimate SLIGHTLY DECREASED Plt Morphology Comment NORMAL RBC Morphology NOTED Polychromasia 1+ (0-2) Hypochromasia 1+ (5-14) Macrocytosis 1+ (5-14) VBG pH 7.51 H VBG pCO2 52 VBG pO2 50 VBG HCO3 42 H VBG O2 Saturation 79.0 VBG Base Excess 17.3 Sodium 149 H Potassium 3.8 Chloride 102 Carbon Dioxide 35 H Anion Gap 16 BUN 36 H Creatinine 1.32 Estim Creat Clear Calc 71.2 Estimated GFR 55 Random Glucose 241 H Calcium 8.2 L Phosphorus 2.9 Magnesium 2.0 Albumin 2.7 L Microbiology Microbiology Results: Microbiology 10/01/21 01:48 Blood - Venous Blood Culture - Preliminary No growth after 48 hours. 10/01/21 01:48 Blood - Venous Blood Culture - Final Coag negative Staphylococcus 09/24/21 16:53 Blood - Venous Blood Culture - Final No growth after 5 days. 09/24/21 16:53 Blood - Venous Blood Culture - Final No growth after 5 days. 09/26/21 08:39 Sputum - Suctioned Gram Stain - Final 09/26/21 08:39 Sputum - Suctioned Sputum Culture - Final Rosa albicans 09/20/21 22:37 Blood - Venous Blood Culture - Final No growth after 5 days. 09/20/21 22:31 Blood - Venous Blood Culture - Final No growth after 5 days. 09/24/21 04:50 Urine Catheterized - Pacheco Catheter Urine Culture - Final No growth. Progress Note: A&P Assessment and plan (1) Acute respiratory failure with hypoxia: Status: Acute (2) Status epilepticus: Status: Acute (3) Acute anoxic encephalopathy: Status: Acute (4) Aspiration pneumonitis: Status: Acute (5) Hemiparesis, left: Status: Acute (6) Acute exacerbation of CHF (congestive heart failure): Status: Acute (7) Chronic HFrEF (heart failure with reduced ejection fraction): Status: Acute Plan Assessment: 66-year-old gentleman with underlying seizure disorder, prior CVA CHF, hypertension admitted with cellulitis with hospital course complicated by aspiration event from ?ileus resulting in cardiac arrest further complicated by anoxic encephalopathy with persistent status epilepticus Plan: Neuro: Anoxic encephalopathy with persistent status epilepticus refractory to antiepileptic therapy after cardiac arrest on the background of prior CVA and seizure disorder. Overall prognosis is terminal. Discussions of goals of care are ongoing with the family. Cardiac: Acute on chronic systolic congestive heart failure, continues diuretic drip. AFib with episodes of RVR, continues on Cardizem and metoprolol. Pulmonary: Pulmonary aspiration resulting in cardiac arrest intubated during the CPR. Continue on ventilatory support for airway protection on the background of ongoing status epilepticus. FiO2 requirements are worsening. Renal: No acute issues. Endo: No acute issues. GI: No acute issues. ID: No acute issues Heme/Onc: No acute issues. Psych: No acute issues. Miscellaneous: Family continues to discuss goals of care. Prophylaxis: heparin, omeprazole Diet: tube feeds Critical care time spent: 45 minutes Quality Stroke Does the patient have a stroke diagnosis?: No VTE Prior VTE?: No VTE Risk Level:: Medical - moderate - high VTE Device Contraindication: Treatment Not Indicated VTE Drug Contraindication: N/A - Med Ordered
[2021-10-05] VITALS (34 sets, daily range): BP systolic 87–138; BP diastolic 34–78; PULSE 79–149; RESP 2–29; TEMP 33.9–39.1; O2SAT 77–99
[2021-10-05] MEDS: propofoL 1,000 MG/100 ML VIAL 21.64 MG IVCONT ×2 (00:58→04:56)
[2021-10-05] MEDS: dilTIAZem HCL 125 MG in 0.9 % Sodium Chloride 100 ML 10 MG IVCONT (01:11)
[2021-10-05] MEDS: Midazolam HCl/NS 50 MG/50 ML PLAST..BAG 10 MG IVCONT ×2 (01:16→06:16)
[2021-10-05] MEDS: Valproic Acid (as Sodium Salt) 500 MG in Dextrose 5 % 50 ML 52.5 MG IV ×2 (01:18→06:10)
[2021-10-05] MEDS: Albumin Human 25 % 100 ML IV (03:55)
[2021-10-05] MEDS: Furosemide 200 MG in 0.9 % Sodium Chloride 80 ML IVCONT (04:02)
[2021-10-05] MEDS: Ketamine HCl/NS 50 MG/5 ML SYRINGE 100 MG IVPUSH ×2 (04:41→20:00)
[2021-10-05 05:26] LABS: VBG HCO3 43 mmol/L (22-26); VBG pCO2 61 mmHg; VBG pH 7.45 (7.32-7.43); VBG pO2 51 mmHg
[2021-10-05 05:29] LABS: Venous Blood Gas Refer to POC result
[2021-10-05 06:12] LABS: Hematocrit 24.6 % (42.0-52.0); Hemoglobin 7.7 g/dl (14.0-18.0); Mean Corpuscular HGB Conc 31.3 g/dl (31.0-36.0); Mean Corpuscular Volume 102.1 fL (80.0-98.0); Mean Platelet Volume 10.2 fL (9.4-12.4); NRBC Pct Auto 1.6 /100WBC (0.0-0.2); Platelet Count 104 X10*3/uL (160-400); Red Blood Count 2.41 X10*6/uL (4.60-5.80); Red Cell Distribution Width 17.7 % (11.0-16.0); White Blood Count 21.8 X10*3/uL (4.8-10.8)
[2021-10-05] MEDS: Heparin Sodium,Porcine 5,000 UNIT/ML VIAL 5000 UNIT SUBCUT ×2 (06:18→18:15)
[2021-10-05 06:40] LABS: Band Neutrophils Percent 16 % (3-5); Basophils Abs Manual 0.2 X10*3/uL (0.0-0.2); Basophils Percent Manual 1 % (0-2); Lymphocytes Absolute Manual 1.3 X10*3/uL (1.2-4.9); Lymphocytes Percent Manual 6 % (20-40); Metamyelocytes Absolute 0.7 X10*3/uL; Metamyelocytes Percent 3 %; Monocytes Absolute Manual 1.7 X10*3/uL (0.1-1.2); Monocytes Percent Manual 8 % (2-11); Myelocytes Absolute 0.4 X10*/uL; Myelocytes Percent 2 %; Neutrophils Absolute Manual 17.4 X10*3/uL (2.0-8.3); Neutrophils Percent Manual 64 % (45-73); Nucleated Red Blood Cells 3 /100WBC (0-0)
[2021-10-05 06:41] LABS: Large Platelet PRESENT; Macrocytosis 1+ (5-14) /OIF; Platelet Estimate DECREASED (NORMAL); Platelet Morphology Comment NOTED; Polychromasia 1+ (0-2) /OIF; RBC Morphology NOTED; Target Cells 1+ (5-14) /OIF
[2021-10-05 07:10] LABS: Albumin Level 3.7 g/dL (3.5-5.0); Anion Gap 16 (12-20); Blood Urea Nitrogen 44 mg/dL (9-16); Calcium 8.4 mg/dL (8.4-10.2); Carbon Dioxide 37 mmol/L (22-29); Chloride 99 mmol/L (96-108); Creatinine Clr Calc Pharmacy 59.1; Estimated Glomerular Filt Rate 44; Glucose Random 477 mg/dL (60-115); Magnesium 2.2 mg/dL (1.6-2.6); Phosphorus 3.5 mg/dL (2.7-4.5); Potassium 4.1 mmol/L (3.3-5.1); Sodium 148 mmol/L (135-145)
[2021-10-05] MEDS: Insulin Lispro 100 UNIT/ML 3 ML VIAL 15 UNIT SUBCUT (08:10)
[2021-10-05] MEDS: 0.9 % Sodium Chloride Flush 3 ML SYRINGE IVFLUSH ×2 (08:12→14:52)
[2021-10-05] MEDS: levETIRAcetam in NaCl (iso-os) 1,500 MG/100 ML PIGGYBACK 400 MG IV (08:12)
[2021-10-05] MEDS: Chlorhexidine Gluc Oral Rinse 15 ML MOUTHWASH BUCCAL ×3 (08:12→22:26)
[2021-10-05] MEDS: Nystatin Powder 15 GM BOTTLE 1 APPL TOPICAL ×2 (08:15→22:28)
[2021-10-05] MEDS: Albuterol/Iprat 2.5/0.5MG 3 ML AMPUL.NEB INHALE ×4 (08:45→20:23)
[2021-10-05] MEDS: PHENobarbitaL sodium 130 MG/ML VIAL 100 MG IVPUSH ×2 (08:45→22:24)
[2021-10-05] MEDS: propofoL 1,000 MG/100 ML VIAL 28.85 MG IVCONT ×5 (09:10→22:23)
--- NOTE | 2021-10-05 14:08 | P.PNCC_ITS ---
Subjective Subjective Date of Service: 10/05/21 Interval History: 66-year-old gentleman with underlying AFib and CVA with residual left hemiparesis, also seizures on Keppra, chronic systolic congestive heart failure admitted on 09/20/2021 with cellulitis, who developed abdominal pain and had CT chest on 09/24/2021 complicated by aspiration and cardiac arrest with CPR for approximately 20 minutes, transferred to intensive care unit intubated thereafter and noted to have EEG 08/26/2030 consistent with anoxic encephalopathy and be in persistent status epilepticus despite a multitude of anti epileptic medications including Keppra, Dilantin, valproic acid, benzodiazepines, propofol, and ketamine. Patient remains encephalopathic and in status with essentially no neurologic improvements since the time of his cardiac arrest. No events overnight. Still with breakthrough seizures despite multiple antiepileptic medications. FiO2 requirements of worsening secondary to volume overload from multiple drips. Critical Care Time (minutes): 45 Physical Exam Vital Signs: Vital Signs: Last Vital Signs Temp 100.2 F 10/05/21 13:00 Pulse 108 H 10/05/21 13:00 Resp 22 H 10/05/21 13:00 BP 110/59 L 10/05/21 13:00 Pulse Ox 89 L 10/05/21 13:00 BMI result Body Mass Index 40.3 Const: General: no acute distress and other ( intermittent breakthrough seizures) Nutritional Appearance: Edematous Neck: Neck: Yes no lymphadenopathy, Yes trachea midline and Yes supple Resp: Auscultation: crackles ( diffuse bilateral) Cardio: Rate: tachycardic Rhythm: abnormal rhythm irregularly irregular Heart sounds: no gallops, no murmurs and no rubs GI: Palpation (GI): Soft to palpation and Other GI palpation findings present ( Nontender) Auscultation: normal bowel sounds Extrem: General: No clubbing, No cyanosis and Yes pedal edema ( 1+ bilateral) Objective Data Labs CBC & Chem 7: 10/05/21 05:17 10/05/21 05:17 Labs: Laboratory Results - last 24 hr 10/05/21 10/05/21 10/05/21 05:17 05:17 05:19 WBC 21.8 H RBC 2.41 L Hgb 7.7 L Hct 24.6 L MCV 102.1 H MCH 32.0 MCHC 31.3 RDW 17.7 H Plt Count 104 L MPV 10.2 Immature Gran % (Auto) Cancelled Neut % (Auto) Cancelled Lymph % (Auto) Cancelled [place] % (Auto) Cancelled Eos % (Auto) Cancelled Baso % (Auto) Cancelled Lymph # (Auto) Cancelled [place] # (Auto) Cancelled Eos # (Auto) Cancelled Baso # (Auto) Cancelled Abs Immat Gran (auto) Cancelled Absolute Neuts (auto) Cancelled Absolute Nucleated RBC 0.340 H Nucleated RBC % (auto) 1.6 H Neutrophils % (Manual) 64 Band Neutrophils % 16 H Lymphocytes % (Manual) 6 L Monocytes % (Manual) 8 Basophils % (Manual) 1 Metamyelocytes % 3 Myelocytes % 2 Abs Neuts (Manual) 17.4 H Lymphocytes # (Manual) 1.3 Monocytes # (Manual) 1.7 H Basophils # (Manual) 0.2 Metamyelocytes # 0.7 Myelocytes # 0.4 Nucleated RBCs 3 H Platelet Estimate DECREASED Large Platelets PRESENT Plt Morphology Comment NOTED RBC Morphology NOTED Polychromasia 1+ (0-2) Macrocytosis 1+ (5-14) Target Cells 1+ (5-14) VBG pH 7.45 H VBG pCO2 61 VBG pO2 51 VBG HCO3 43 H VBG O2 Saturation 80.0 VBG Base Excess 17.0 Sodium 148 H Potassium 4.1 Chloride 99 Carbon Dioxide 37 H Anion Gap 16 BUN 44 H Creatinine 1.59 H Estim Creat Clear Calc 59.1 Estimated GFR 44 Random Glucose 477 H* Calcium 8.4 Phosphorus 3.5 Magnesium 2.2 Albumin 3.7 D Microbiology Microbiology Results: Microbiology 10/01/21 01:48 Blood - Venous Blood Culture - Preliminary No growth after 48 hours. 10/01/21 01:48 Blood - Venous Blood Culture - Final Coag negative Staphylococcus 09/24/21 16:53 Blood - Venous Blood Culture - Final No growth after 5 days. 09/24/21 16:53 Blood - Venous Blood Culture - Final No growth after 5 days. 09/26/21 08:39 Sputum - Suctioned Gram Stain - Final 09/26/21 08:39 Sputum - Suctioned Sputum Culture - Final Rosa albicans 09/20/21 22:37 Blood - Venous Blood Culture - Final No growth after 5 days. 09/20/21 22:31 Blood - Venous Blood Culture - Final No growth after 5 days. 09/24/21 04:50 Urine Catheterized - [place] Catheter Urine Culture - Final No growth. Progress Note: A&P Assessment and plan (1) Acute respiratory failure with hypoxia: Status: Acute (2) Status epilepticus: Status: Acute (3) Acute anoxic encephalopathy: Status: Acute (4) Aspiration pneumonitis: Status: Acute (5) Chronic atrial fibrillation: Status: Acute (6) Acute exacerbation of CHF (congestive heart failure): Status: Acute (7) Chronic HFrEF (heart failure with reduced ejection fraction): Status: Acute Plan Assessment: 66-year-old gentleman with underlying seizure disorder, prior CVA CHF, hypertension admitted with cellulitis with hospital course complicated by aspiration event from ?ileus resulting in cardiac arrest further complicated by anoxic encephalopathy with persistent status epilepticus Plan: Neuro: Anoxic encephalopathy with persistent status epilepticus refractory to antiepileptic therapy after cardiac arrest on the background of prior CVA and seizure disorder. Overall prognosis is terminal. Discussions of goals of care are ongoing with the family. Will switch antiepileptic regimen to propofol and phenobarbital. Cardiac: Acute on chronic systolic congestive heart failure, continues diur etic drip. AFib with episodes of RVR, continues on Cardizem and metoprolol. Pulmonary: Pulmonary aspiration resulting in cardiac arrest intubated during the CPR. Continue on ventilatory support for airway protection on the background of ongoing status epilepticus. FiO2 requirements are worsening secondary to volume overload. Renal: Continue with diuresis. Non oliguric. Continue to monitor renal indices and urine output. Endo: No acute issues. GI: No acute issues. ID: No acute issues Heme/Onc: No acute issues. Psych: No acute issues. Miscellaneous: Family continues to discuss goals of care. Prophylaxis: heparin, omeprazole Diet: tube feeds Critical care time spent: 45 minutes Quality Stroke Does the patient have a stroke diagnosis?: No VTE Prior VTE?: No VTE Risk Level:: Medical - moderate - high VTE Device Contraindication: Treatment Not Indicated VTE Drug Contraindication: N/A - Med Ordered
[2021-10-05] MEDS: Digoxin 0.5 MG/2 ML AMPUL 0.25 MG IVPUSH (16:24)
--- NOTE | 2021-10-05 16:59 | PC.NURSE ---
Remains intubated. AC/VC+ settings backup rate 18 down to 16 today Vt 500 down to 450 today. FiO2 remains 90% PEEP now 5, down from 8. Continues to have high peak pressures to 50. No inline secretions. Lungs rhonchorous and wheezy. SpO2 85-91% Scheduled meds as ordered. IV Cardizem, Versed, Valproic Acid, Keppra and Dilantin all D/C'd today. Lasix drip continues and was increased per orders to 20mg/hr. UO decreasing, but remains within normal limits. Edema remains profound. Tube feeds continue at goal with water boluses per RD orders. HR and rhythm remain irregular and rapid. IVP Digoxin ordered. First dose 0.25mg given. Propofol continues for sedation. Levophed weaned down to 0.07mcg/kg/min to maintain BP. All dressings to skin C/D/I. Nystatin as ordered to fungal areas.
[2021-10-05] MEDS: Furosemide 200 MG in 0.9 % Sodium Chloride 80 ML 10 MG IVCONT (19:35)
[2021-10-05 21:27] LABS: Anion Gap 17 (12-20); Blood Urea Nitrogen 53 mg/dL (9-16); Calcium 8.6 mg/dL (8.4-10.2); Carbon Dioxide 35 mmol/L (22-29); Chloride 99 mmol/L (96-108); Creatinine Clr Calc Pharmacy 48.4; Estimated Glomerular Filt Rate 35; Glucose Random 609 mg/dL (60-115); Potassium 4.8 mmol/L (3.3-5.1); Sodium 146 mmol/L (135-145)
--- NOTE | 2021-10-06 | PC.RT ---
Pt Terminally Extubated to RA;RN, REGULATORY COMPLIANCE COORDINATOR and family in room.
--- NOTE | 2021-10-06 00:05 | PC.NURSE ---
Pt extubated at 2356. Lasix gtt and Levo gtt d/c'd. Family at bedside. Pt desatted and heart dropped to eventual asystole. UMAIR Barlow at bedside and pronounced pt at 0004.
--- NOTE | 2021-10-06 00:18 | PM.CCHP ---
History of Present Illness Date of Service: 10/06/21 [facility] Past Medical History Medical History Anemia Bradycardia Cardiomyopathy Chronic atrial fibrillation Chronic HFrEF (heart failure with reduced ejection fraction) CVA (cerebral vascular accident) HTN (hypertension) Obesity Raynaud disease Family History Family History Father Emphysema lung Mother Cardiovascular disease Social History Social History Household Members: Caregiver Housing: Apartment Do you presently have visiting nurse or other home services: No Unable to assess alcohol history related to: Unknown Alcohol intake: never Patient Tobacco Use Status: Never used Tobacco Second Hand Smoke Exposure: No Advance Directives Date on File: 11/23/20 service: No Current occupational status: disabled Meds Allergies Allergy/AdvReac Type Severity Reaction Status Date / Time No Known Allergies Allergy Verified 08/29/21 21:04 Active Medications: Current Medications Acetaminophen (Acetaminophen Oral Liquid 650 Mg/20.3 Ml Solution) 650 mg PO Q4H PRN PRN Reason: Fever Last Admin: 10/04/21 06:04 Dose: 650 mg Documented by: Albuterol Sulfate (Albuterol Sulfate (0.083%) 2.5 Mg/3 Ml Vial.Neb) 2.5 mg INHALE RQ6H PRN PRN Reason: Wheezing Last Admin: 10/03/21 04:29 Dose: 2.5 mg Documented by: Albuterol/Ipratropium (Albuterol/Iprat 2.5/0.5mg 3 Ml Ampul.Neb) 3 ml INHALE RQ4H WHILE AWAKE [facility] Last Admin: 10/05/21 20:23 Dose: 3 ml Documented by: Chlorhexidine Gluconate (Chlorhexidine Gluc Oral Rinse 15 Ml Mouthwash) 15 ml BUCCAL TID [facility] Last Admin: 10/05/21 22:26 Dose: 15 ml Documented by: Digoxin (Digoxin 0.5 Mg/2 Ml Ampul) 0.25 mg IVPUSH Q6H [facility] Stop: 10/06/21 04:16 Last Admin: 10/05/21 16:24 Dose: 0.25 mg Documented by: Heparin Sodium (Porcine) (Heparin Sodium,Porcine 5,000 Unit/Ml Vial) 5,000 unit SUBCUT Q12H [facility] Last Admin: 10/05/21 18:15 Dose: 5,000 unit Documented by: Norepinephrine Bitartrate (Levophed) 8 mg in 250 mls @ 0 mls/hr IVCONT .Q0M [facility]; Protocol Last Admin: 10/05/21 12:07 Dose: 0.07 mcg/kg/min, 15.78 mls/hr Documented by: Propofol (Diprivan) 1,000 mg in 100 mls @ 0 mls/hr IVCONT .Q0M [facility]; Protocol Last Admin: 10/05/21 22:23 Dose: 40 mcg/kg/min, 28.85 mls/hr Documented by: Furosemide 200 mg/ Sodium (Chloride) 100 mls @ 10 mls/hr IVCONT .Q10H [facility] Last Admin: 10/05/21 19:35 Dose: 20 mg/hr, 10 mls/hr Documented by: Metoprolol Tartrate (Metoprolol Tartrate 5 Mg/5 Ml Vial) 5 mg IVPUSH Q6H PRN PRN Reason: Heart Rate >100 Last Admin: 10/01/21 04:32 Dose: 5 mg Documented by: Nystatin (Nystatin Powder 15 Gm Bottle) 1 appl TOPICAL BID [facility]; Protocol Last Admin: 10/05/21 22:28 Dose: 1 appl Documented by: Omeprazole (Omeprazole 20 Mg/10 Ml Susp.Recon) 40 mg PO DAILY@0630 [facility] Last Admin: 10/05/21 06:18 Dose: 40 mg Documented by: Phenobarbital Sodium (Phenobarbital Sodium 130 Mg/Ml Vial) 100 mg IVPUSH Q12H [facility] Last Admin: 10/05/21 22:24 Dose: 100 mg Documented by: Sodium Chloride (0.9 % Sodium Chloride Flush 3 Ml Syringe) 3 ml IVFLUSH QSHIFT [facility] Last Admin: 10/05/21 14:52 Dose: 3 ml Documented by: Home Medications Medication Instructions Recorded Confirmed Last Taken Type citalopram 40 mg tablet 1 tab PO DAILY@1200 01/08/21 09/20/21 Unknown History dabigatran etexilate 150 mg 1 cap PO BID@1200,2100 01/08/21 09/20/21 Unknown History capsule (Pradaxa) hydroxyzine HCl 10 mg tablet 10 mg PO BEDTIME 01/08/21 09/20/21 Unknown History levetiracetam 1,000 mg tablet 1 tab PO BID@1200,2100 01/08/21 09/20/21 Unknown History melatonin 5 mg tablet 2 tab PO BEDTIME 01/08/21 09/20/21 Unknown History metoprolol succinate 25 mg 1 tab PO QAM 01/08/21 09/20/21 Unknown History tablet,extended release 24 hr pantoprazole 40 mg tablet,delayed 1 tab PO QAM 01/08/21 09/20/21 Unknown History release simvastatin 20 mg tablet 1 tab PO QPM 01/08/21 09/20/21 Unknown History albuterol sulfate 90 mcg/actuation 2 puff INHALATION Q4-6H PRN 02/11/21 09/20/21 Unknown History aerosol inhaler (ProAir HFA) ascorbic acid (vitamin C) 500 mg 500 mg PO DAILY 05/30/21 09/20/21 Unknown History tablet (Vitamin C) ferrous gluconate 324 mg (38 mg 324 mg PO DAILY 05/30/21 09/20/21 Unknown History iron) tablet gabapentin 100 mg capsule 200 mg PO TID 05/30/21 09/20/21 Unknown History valsartan 80 mg tablet 80 mg PO BID 05/30/21 09/20/21 Unknown History furosemide 20 mg tablet 40 mg PO DAILY 09/20/21 09/20/21 Unknown History polyethylene glycol 3350 17 gram 17 g PO DAILY 09/20/21 09/20/21 Unknown History oral powder packet acetaminophen 325 mg tablet 2 tab PO Q4H PRN 09/21/21 09/21/21 Unknown History sennosides 8.6 mg-docusate sodium 2 tab PO BID 09/21/21 09/21/21 Unknown History 50 mg tablet (Senexon-S) Physical Exam Vital Signs: Vital Signs: Last Vital Signs Temp 102.4 F H 10/05/21 23:00 Pulse 140 H 10/05/21 23:00 Resp 22 H 10/05/21 23:00 BP 111/49 L 10/05/21 23:00 Pulse Ox 82 L 10/05/21 23:00 BMI result Body Mass Index 40.3 Results Labs CBC and Chem 7: 10/05/21 05:17 10/05/21 20:58 Labs: Laboratory Results - last 24 hr 10/05/21 10/05/21 10/05/21 05:17 05:17 05:19 MCV 102.1 H MCH 32.0 MCHC 31.3 RDW 17.7 H Plt Count 104 L MPV 10.2 Immature Gran % (Auto) Cancelled Neut % (Auto) Cancelled Lymph % (Auto) Cancelled [place] % (Auto) Cancelled Eos % (Auto) Cancelled Baso % (Auto) Cancelled Lymph # (Auto) Cancelled [place] # (Auto) Cancelled Eos # (Auto) Cancelled Baso # (Auto) Cancelled Abs Immat Gran (auto) Cancelled Absolute Neuts (auto) Cancelled Absolute Nucleated RBC 0.340 H Nucleated RBC % (auto) 1.6 H Neutrophils % (Manual) 64 Band Neutrophils % 16 H Lymphocytes % (Manual) 6 L Monocytes % (Manual) 8 Basophils % (Manual) 1 Metamyelocytes % 3 Myelocytes % 2 Abs Neuts (Manual) 17.4 H Lymphocytes # (Manual) 1.3 Monocytes # (Manual) 1.7 H Basophils # (Manual) 0.2 Metamyelocytes # 0.7 Myelocytes # 0.4 Nucleated RBCs 3 H Platelet Estimate DECREASED Large Platelets PRESENT Plt Morphology Comment NOTED RBC Morphology NOTED Polychromasia 1+ (0-2) Macrocytosis 1+ (5-14) Target Cells 1+ (5-14) VBG pH 7.45 H VBG pCO2 61 VBG pO2 51 VBG HCO3 43 H VBG O2 Saturation 80.0 VBG Base Excess 17.0 Anion Gap 16 Estim Creat Clear Calc 59.1 Estimated GFR 44 Random Glucose 477 H* Calcium 8.4 Phosphorus 3.5 Magnesium 2.2 Albumin 3.7 D 10/05/21 20:58 MCV MCH MCHC RDW Plt Count MPV Immature Gran % (Auto) Neut % (Auto) Lymph % (Auto) [place] % (Auto) Eos % (Auto) Baso % (Auto) Lymph # (Auto) [place] # (Auto) Eos # (Auto) Baso # (Auto) Abs Immat Gran (auto) Absolute Neuts (auto) Absolute Nucleated RBC Nucleated RBC % (auto) Neutrophils % (Manual) Band Neutrophils % Lymphocytes % (Manual) Monocytes % (Manual) Basophils % (Manual) Metamyelocytes % Myelocytes % Abs Neuts (Manual) Lymphocytes # (Manual) Monocytes # (Manual) Basophils # (Manual) Metamyelocytes # Myelocytes # Nucleated RBCs Platelet Estimate Large Platelets Plt Morphology Comment RBC Morphology Polychromasia Macrocytosis Target Cells VBG pH VBG pCO2 VBG pO2 VBG HCO3 VBG O2 Saturation VBG Base Excess Anion Gap 17 Estim Creat Clear Calc 48.4 Estimated GFR 35 Random Glucose 609 H* Calcium 8.6 Phosphorus Magnesium Albumin
--- NOTE | 2021-10-06 00:20 | PM.EVENT ---
Event Note Date of Service: 10/06/21 Event Note: Deterioration of patient's clinical status over the last few hours, including hypoxemia refractory to ventilatory support, and likely cardiopulmonary arrest being imminent. Family at bedside,? Discussed with Cheryl, the patient's sister/HCP and decision to change code status to comfort was reached.?23:56 patient was terminally extubated, asystole at 0004. On my exam, the patient had absent peripheral pulses.? Pupils fixed and dilated.? Absent heart sounds? and no spontaneous breathing.? Patient pronounced at 0004. ? Family at bedside and on facetime? Autopsy was declined by family. ? Not a medical exam candidate.? Organ donation was notified by nursing. ? Attending Dr Li notified
--- NOTE | 2021-10-06 01:00 | PC.NURSE ---
Assumed care of pt at 1900. Monitor has shown afib, rate 120's-170 with occ PVC's noted. At 1930, rate up to 160's and twitching of face and foot noted. Yen Vázquez INSULATION ENGINEMAN at bedside and ordered Ketamine 100 mg IVP which was given at 0. Heart rate came down to 80's briefly and then back up. Pt started to desat and dropped as low as 60's. Resp therapist in room and bagged pt to get sats up to 90's. Fio2 increased to 100% via vent. Levophed had be titrated up to 1 mcg/kg/min for BP down to 71/27. In preparation for impending code blue, defib pads placed on pt and Micha applied to chest. Pulses palpable. INSULATION ENGINEMAN called family and updated them on pt's status. They want Full Code at this point. BP stabalized on .1mcg of Levophed. Heart rate continued with varible afib rate of 110's-160's. O2 sats held steady in the 90's but pt had a couple episode of O2 desatting to 70's but came back up with suctioning. At 2129, family called for update and spoke to Yen BLOCK. They wanted to come in and arrived at 2229. Family asked for a senior product designer to give the sacrament of the sick. Zunilda arrived at 2300 and gave the sacrament. Family facetimed other family members and came out of room at this time to express their wishes to make pt Comfort Measures only. PLan to d/c Levo, Lasix and to extubate pt. Resp therapy called.
--- NOTE | 2021-10-06 01:02 | PC.NURSE ---
[facility] called and referral declined. Family has left. Home is [place] , [address], [place]. Spoke to Vicky, ref # [id number]. Post mortem care done.
--- NOTE | 2021-10-06 14:02 | PM.DDS ---
Discharge Sum: Prov Provider Primary care physician: Adalberto Coleman MD Consults: 09/24/21 14:44 Consult to General Surgery Routine Consulting Provider: Deepa Romero Reason for consultation: ACS Has provider been notified: Yes Discharge Sum: Diag Contributing Factors (1) Acute respiratory failure with hypoxia: (2) Status epilepticus: (3) Acute anoxic encephalopathy: (4) Aspiration pneumonitis: (5) Chronic atrial fibrillation: (6) Acute exacerbation of CHF (congestive heart failure): (7) Chronic HFrEF (heart failure with reduced ejection fraction): (8) Hemiparesis, left: (9) Obesity: (10) CVA (cerebral vascular accident): Discharge Sum: Summary Date and Time Date of admission: 09/20/21 22:45 Summary Details: 66-year-old gentleman with underlying AFib and CVA with residual left hemiparesis, also seizures on Keppra, chronic systolic congestive heart failure admitted on 09/20/2021 with cellulitis, who developed abdominal pain and had CT chest on 09/24/2021 complicated by aspiration and cardiac arrest with CPR for approximately 20 minutes, transferred to intensive care unit intubated thereafter and noted to have EEG 08/26/2030 consistent with anoxic encephalopathy and be in persistent status epilepticus despite a multitude of anti epileptic medications including Keppra, Dilantin, valproic acid, benzodiazepines, propofol, and ketamine. Patient remained encephalopathic and in status epilepticus with essentially no neurologic improvements since the time of his cardiac arrest. Multiple family meetings were held to discuss goals of care and his essentially terminal prognosis. His hospital course was further complicated by worsening hypoxemia and acute kidney injury. Weight in the evening of 10/05/2021 patient's clinical status deteriorated further and another family meeting to discuss goals of care was held. At that time decision has been reached to switch goals of care to palliation. Patient was terminally extubated and passed peacefully on 10/06/2021 at 00:04 a.m. Additional Data Confirmation of as documented by pronouncing clinician: no pulse, no respirations, no heart sounds and pupils fixed and dilated Family: contacted Attending physician: Xander Li MD
--- NOTE | 2021-10-11 08:17 | P.CDIR_ITS ---
Documented by User: Dayanna Soares CCS, CDIS 10/11/21 08:30 Retrospective Query PHYSICIAN'S DOCUMENTATION REQUEST Date of Query: 10/11/21817 Patient Name: Chandra Tang Admit Date: 09/20/21 Dear Doctor, A review of the medical record indicates additional documentation may be needed. Please review below and update the documentation accordingly. Risk Factors/Clinical Indicators/Treatments H&P: 09/20 - cellulitis left arm, Vancomycin admit Event note: 09/24 - ICU admit Cardiac arrest. Surgery note 09/24 - early a.m c/o abdo pain, distention and nausea, while in x- ray had large vomitus, went into cardiac arrest, 3 rounds of Epi, 17 min CPR then Vfib, Shock and ROSC, pressors and no urine output. ICU note: 09/24 - Lactate use of ventilator and hypotension all 2nd to cardiac ar rest, Sirs and shock post aspiration and now may be Septic. WBC 9.4/20.6 Temp 101.1/102.2 RR 26 HR 72/122 BP 94/50 Based on the above if you agree, could you clarify in the Progress Notes the appropriate diagnosis, if significant, that supports the above abnormalities and additional evaluation, monitoring, and/or treatment rendered: Shock specifics: Sepsis with septic shock with organ failure (respiratory, circulatory etc) (Treating, rule out, resolved, present on arrival etc. ) Shock due to other etiology * Other (please specify) * Unable to determine Use of terms such as suspected, likely, concern for, or probable (associated with a specific diagnosis that is being evaluated, monitored, or treated as if it exists) are acceptable and can be coded in the inpatient setting, when documented at the time of discharge. Thank you, Dayanna Soares CCS, CDIS Extension: [phone] Please use your independent medical judgment in providing your response. THIS QUERY IS PART OF THE PERMANENT MEDICAL RECORD Documented by User: Xander Li MD 10/11/21 09:17 Retrospective Query Provider Response: Other (No evidence of septic shock)
== END 2021-10-06 00:04 | disposition expired | DRG 383 ==
LOC: HO.ED 22:42 → HO.EDOVER 22:54 → HO.S3 09-22 20:52 → HO.ICU 09-24 03:23
PROVIDERS: Anesthesiology; Hospitalist; Internal Medicine Cardiovascular Disease; Nurse Practitioner Family; Physician Assistant; Physician Assistant Medical; Registered Nurse Community Health; Admitting Provider Internal Medicine; Emergency Provider Emergency Medicine; PCP Internal Medicine; Visit Provider Internal Medicine Pulmonary Disease
DX: L03.114 Cellulitis of left upper limb (principal); J96.01 Acute respiratory failure with hypoxia; R57.0 Cardiogenic shock; J69.0 Pneumonitis due to inhalation of food and vomit; I50.33 Acute on chronic diastolic (congestive) heart failure; G40.901 Epilepsy, unspecified, not intractable, with status epilepticus; G93.1 Anoxic brain damage, not elsewhere classified; K56.7 Ileus, unspecified; I42.0 Dilated cardiomyopathy; I48.19 Other persistent atrial fibrillation; I11.0 Hypertensive heart disease with heart failure; I69.854 Hemiplegia and hemiparesis following other cerebrovascular disease affecting left non-dominant side; Z51.5 Encounter for palliative care; Z68.41 Body mass index [BMI] 40.0-44.9, adult; E66.01 Morbid (severe) obesity due to excess calories; Z20.822 Contact with and (suspected) exposure to COVID-19; I46.9 Cardiac arrest, cause unspecified; Z79.899 Other long term (current) drug therapy
CPT/HCPCS: 36415; 70450; 71045; 71250; 74018; 74176; 80048; 80053; 80076; 80164; 80177; 80185; 80202; 81003; 82040; 82271; 82565; 82803; 82947; 83605; 83690; 83735; 83880; 84100; 84145; 84484; 85007; 85025; 85027; 85610; 85730; 87040; 87070; 87077; 87086; 87147; 87205; 87635; 93005; 94002; 94003; 94640; 94799; 95816; 99285; 99497; C1758; J0171; J0282; J0461; J0690; J0692; J0696; J1160; J1940; J1953; J2060; J2250; J2270; J2405; J2543; J2560; J2765; J3010; J3370; J3475; P9047